=== PATIENT | female | born 1950 | race Caucasian/White ===

== ENCOUNTER 2017-10-13 15:28 | Emergency (ER) | payer OTHER ==
--- OUTSIDE RECORDS SUMMARY | 2017-10-13 15:30 | XMS REPORT | Clinical Summary ---
:1950 Author Organization [facility] Address [address] [place] [address] Care Team Providers Name Role Phone Marianne Sotelo Primary Care Provider Allergies No Known Allergies Current Medications Prescription Sig. Disp. Refills Start Date End Date Status atorvastatin (LIPITOR) 40 MG Take 40 mg by Active tablet mouth daily. FLUoxetine (PROzac) 40 MG Take 40 mg by Active capsule mouth daily. hydroCHLOROthiazide Take 25 mg by Active (HYDRODIURIL) 25 MG tablet mouth daily. losartan (COZAAR) 100 MG Take 100 mg by Active tablet mouth daily. amLODIPine (NORVASC) 10 mg Take 10 mg by Active tablet mouth daily. hydrALAZINE (APRESOLINE) 50 Take 50 mg by Active MG tablet mouth 3 (three) times a day. Active Problems Problem Noted Date Bronchitis 09/06/2017 Encounters Date Type Specialty Care Team Description 09/06/2017 [facility] Gastroenterology Antoine Abbott Bronchitis Encounter MD Chidi 09/06/2017 Anesthesia Event Gastroenterology Selena Mar MD 09/06/2017 Procedure Pass Gastroenterology 09/06/2017 Surgery Gastroenterology Antoine Abbott BRONCHOSCOPY MD Cihdi 08/30/2017 Procedure Pass Gastroenterology 04/10/2017 [facility] Radiology Antoine Abbott Pulmonary nodules Encounter MD Chidi 02/16/2017 Transcribe Orders Access Antoine Abbott Pulmonary nodules MD Chidi (Primary Dx) 11/03/2016 [facility] General Internal Antione Landa, - Encounter Medicine 11/05/2016 Antoine Abbott MD 11/03/2016 Orders Only General Surgery Kaity Krueger NP 10/31/2016 Orders Only General Surgery Antione Landa MD after 10/12/2016 Family History Medical History Relation Name Comments Alcohol abuse Brother Mental illness Brother Heart disease Father Hypertension Father Hypertension Mother Alcohol abuse Sister Mental illness Sister Relation Name Status Comments Brother Alive Father Mother Sister Alive Social History Tobacco Use Types Packs/Day Years Used Date Never Smoker Smokeless Tobacco: Never Used Alcohol Use Drinks/Week oz/Week Comments No Sex Assigned at Date Recorded Not on file Last Filed Vital Signs Vital Sign Reading Time Taken Blood Pressure 147/87 09/06/2017 2:30 PM [employer] Pulse 75 09/06/2017 2:30 PM [employer] Temperature 36.4 C (97.5 F) 09/06/2017 1:44 PM [employer] Respiratory Rate 17 09/06/2017 2:30 PM [employer] Oxygen Saturation 94% 09/06/2017 2:30 PM [employer] Inhaled Oxygen Concentration - - Weight - - Height 157.5 cm (5' 2") 09/06/2017 11:36 AM [employer] Body Mass Index - - Plan of Treatment Health Maintenance Due Date Last Done Comments COLONOSCOPY 2000 MAMMOGRAM 2000 ZOSTER VACCINE 2010 PNEUMOCOCCAL POLYSACCHARIDE VACCINE AGE 65 AND OVER 2015 PNEUMOCOCCAL-13 2015 INFLUENZA VACCINE 02/14/2017 Procedures Procedure Name Priority Date/Time Associated Diagnosis Comments BRONCHOSCOPY 09/06/2017 1:30 PM [employer] Bronchitis after 10/12/2016 Results Cytology (non-gynecological) request (09/06/2017 2:26 PM) Component Value Ref Range Cytology (non-gynecological) report See link below for PDF Lab Report Result status This is Final Report to [id number] Specimen Performing Laboratory [facility] DEPARTMENT OF PATHOLOGY AND GENOMIC MEDICINE [address] [place] [address] Respiratory culture (09/06/2017 2:09 PM) Component Value Ref Range Respiratory culture isolate Normal oral amado isolated. Comment: Specimen Information Specimen Source: Bronchial alveolar lavage Specimen Site: Lung, left upper lobe Specimen Performing Laboratory Bronchial alveolar lavage - Lung, left [facility] DEPARTMENT OF PATHOLOGY AND GENOMIC upper lobe MEDICINE [address] [place] [address] Fungus smear (09/06/2017 2:09 PM)Only the most recent of3 resultswithin the time period is included. Component Value Ref Range Fungus smear No fungi observed. Comment: Specimen Information Specimen Source: Bronchial alveolar lavage Specimen Site: Lung, left upper lobe Specimen Performing Laboratory Bronchial alveolar lavage - Lung, left [facility] DEPARTMENT OF PATHOLOGY AND [facility] MEDICINE [address] [place] [address] Respiratory pathogen panel (09/06/2017 2:09 PM) Component Value Ref Range Respiratory pathogen panel Negative for all pathogens tested: Negative for Adenovirus Negative for Coronavirus HKU1 Negative for Coronavirus NL63 Negative for Coronavirus 229E Negative for Coronavirus OC43 Negative for Human Metapneumovirus Negative for Rhinovirus/Enterovirus Negative for Influenza A Negative for Influenza A/H1 Negative for Influenza A/H3 Negative for Influenza A/H1-2009 Negative for Influenza B Negative for Parainfluenza Virus 1 Negative for Parainfluenza Virus 2 Negative for Parainfluenza Virus 3 Negative for Parainfluenza Virus 4 Negative for Respiratory Syncytial Virus Negative for Bordetella pertussis Negative for Chlamydophila pneumoniae Negative for Mycoplasma pneumoniae This real-time PCR assay detects the presence of nucleic acids (RNA or DNA) for the respiratory pathogens listed. A result of "Not-detected" does not exclude the possibility of the presence of one or more pathogens at concentrations less than the detectable limits of the assay. Comment: Specimen Information Specimen Source: Bronchial alveolar lavage Specimen Site: Lung, left upper lobe Specimen Performing Laboratory Bronchial alveolar lavage - Lung, left [facility] DEPARTMENT OF PATHOLOGY AND [address] [address] Legionella pneumophila DFA (09/06/2017 2:09 PM) Component Value Ref Range Legionella pneumophila DFA source BAL Legionella pneumophila DFA result Negative Negative Comment: Nucleic acid amplification tests provide greater sensitivity than DFA and should be ordered if clinically indicated. The preferred test is Legionella Species by Qualitative PCR (Breeze test code [id number]). Performed by [facility], [address] [place] [id number] [email or web address], Shahid Robbins MD - Lab. Director Specimen Performing Laboratory Bronchial alveolar lavage - Lung, left [facility] upper lobe [address] [place] [address] Cytomegalovirus by PCR (09/06/2017 2:09 PM) Component Value Ref Range Cytomegalovirus by PCR Not-Detected Not-Detected IU/mL Cytomegalovirus by PCR See link below for PDF Lab ReportComment: Specimen Performing Laboratory Bronchial alveolar lavage - Lung, left [facility] DEPARTMENT OF PATHOLOGY AND [facility] MEDICINE [address] [place] [address] Varicella zoster by PCR (09/06/2017 2:09 PM) Component Value Ref Range VZV result Not-Detected Not-Detected copies/mL Varicella zoster, PCR See link below for PDF Lab ReportComment: Specimen Performing Laboratory Bronchial alveolar lavage - Lung, left [facility] DEPARTMENT OF PATHOLOGY AND [address] [address] Herpes simplex virus by PCR (09/06/2017 2:09 PM) Component Value Ref Range Herpes virus, PCR Not-Detected Not-Detected Herpes virus, PCR See link below for PDF Lab ReportComment: Specimen Performing Laboratory Bronchial alveolar lavage - Lung, left [facility] DEPARTMENT OF PATHOLOGY AND [address] [address] Nocardia culture (09/06/2017 2:09 PM) Component Value Ref Range Nocardia culture isolate No Nocardia isolated after 7 days. Comment: Specimen Information Specimen Source: Bronchial alveolar lavage Specimen Site: Lung, left upper lobe Specimen Performing Laboratory Bronchial alveolar lavage - Lung, [facility] DEPARTMENT OF PATHOLOGY AND [address] [address] Legionella culture (09/06/2017 2:09 PM) Component Value Ref Range Legionella culture isolate No Legionella isolated. Comment: Specimen Information Specimen Source: Bronchial alveolar lavage Specimen Site: Lung, left upper lobe Specimen Performing Laboratory Bronchial alveolar lavage - Lung, [facility] DEPARTMENT OF PATHOLOGY AND [address] [address] Gram stain (09/06/2017 2:09 PM)Only the most recent of2 resultswithin the time period is included. Component Value Ref Range Gram stain isolate Rare WBC's No organisms seen Comment: Specimen Information Specimen Source: Bronchial alveolar lavage Specimen Site: Lung, left upper lobe Specimen Performing Laboratory Bronchial alveolar lavage - Lung, [facility] DEPARTMENT OF PATHOLOGY AND [facility] MEDICINE [address] [place] [address] AFB stain (09/06/2017 2:09 PM)Only the most recent of2 resultswithin the time period is included. Component Value Ref Range AFB stain No acid fast bacilli (AFB) seen. Comment: Specimen Information Specimen Source: Bronchial alveolar lavage Specimen Site: Lung, left upper lobe Specimen Performing Laboratory Bronchial alveolar lavage - Lung, [facility] DEPARTMENT OF PATHOLOGY AND GENOMIC [facility] MEDICINE [address] [place] [address] Fungus culture (09/06/2017 1:09 PM)Only the most recent of3 resultswithin the time period is included. Component Value Ref Range Fungus culture isolate No growth after 4 weeks of incubation. Comment: Specimen Information Specimen Source: Bronchial alveolar lavage Specimen Site: Lung, left upper lobe Specimen Performing Laboratory Bronchial alveolar lavage - Lung, left [facility] DEPARTMENT OF PATHOLOGY AND [facility] MEDICINE [address] [place] [address] ECG Pre/Post Op (09/06/2017 11:15 AM)Only the most recent of2 resultswithin the time period is included. Component Value Ref Range Ventricular rate 62 Atrial rate 62 MD interval 116 QRSD interval 82 QT interval 430 QTC interval 436 P axis 1 12 QRS axis 1 5 T wave axis -20 EKG impression Normal sinus rhythm-Moderate voltage criteria for LVH, may be normal variant-Inferior infarct , age undetermined-Abnormal ECG-- Specimen Performing Laboratory [facility] [address] [address] [place] [address] [address] Chest Wo Contrast (04/10/2017 9:24 AM) Specimen Performing Laboratory [facility] [address] [place] [address] Narrative EXAMINATION:CT CHEST WO CONTRAST CLINICAL HISTORY:R91.8 Other nonspecific abnormal finding of lung field, r91.8 TECHNIQUE: Noncontrast images of the chest were obtained. Sagittal and coronal computerized reformatted images were also obtained. CT imaging was performed with iterative reconstruction technique and/or automated exposure control to reduce radiation dose. COMPARISON:09/22/2016 IMPRESSION: 1.6 cm pulmonary nodule in the right middle lobe and 5 mm nodule in the right lower lobe along the fissure as well as few smaller nodular opacities in the posterior right lower lobe are unchanged. Calcified granuloma in the right lower lobe is also stable. Multifocal areas of elongated/tubular opacities. Some of these are unchanged compared to the prior study but other areas appear slightly increased: for example posterior right lower lobe focus (series 3 image 62) and left upper lobe ( series 3 image 22). Several associated small centrilobular and tree-in-bud appearing nodular opacities in the upper lobes bilaterally are unchanged. No new opacities. 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 Suggestive of ABPA. 2.Normal thyroid. No pathologically enlarged axillary, mediastinal, or hilar lymph nodes. 3.Normal heart size. Trace pericardial fluid. Atherosclerosis of the thoracic aorta. 4.Cholecystectomy. 5.Small degenerative osteophytes in the thoracic spine. [facility]-[id number] Procedure Note Hm Interface, Radiology Results Incoming - 04/10/2017 9:48 AM CDT EXAMINATION: CT CHEST WO CONTRAST CLINICAL HISTORY: R91.8 Other nonspecific abnormal finding of lung field, r91.8 TECHNIQUE: Noncontrast images of the chest were obtained. Sagittal and coronal computerized reformatted images were also obtained. CT imaging was performed with iterative reconstruction technique and/or automated exposure control to reduce radiation dose. COMPARISON: 09/22/2016 IMPRESSION: 1. 6 cm pulmonary nodule in the right middle lobe and 5 mm nodule in the right lower lobe along the fissure as well as few smaller nodular opacities in the posterior right lower lobe are unchanged. Calcified granuloma in the right lower lobe is also stable. Multifocal areas of elongated/tubular opacities. Some of these are unchanged compared to the prior study but other areas appear slightly increased : for example posterior right lower lobe focus (series 3 image 62) and left upper lobe (series 3 image 22). Several associated small centrilobular and tree-in-bud appearing nodular opacities in the upper lobes bilaterally are unchanged. No new opacities. Overall findings compatible with minimal progression in chronic/ recurrent small airway infection/inflammation with mucous plugging. Suggestive of ABPA. 2. Normal thyroid. No pathologically enlarged axillary, mediastinal, or hilar lymph nodes. 3. Normal heart size. Trace pericardial fluid. Atherosclerosis of the thoracic aorta. 4. Cholecystectomy. 5. Small degenerative osteophytes in the thoracic spine. [facility]-[id number] Aspergillus Ab by CF, serum (11/05/2016 6:15 AM) Component Value Ref Range Aspergillus Ab CF <1:8 <1:8 Comment: INTERPRETIVE INFORMATION: Aspergillus Antibody by Complement Fixation (CF) Cross-reactions with dimorphic fungi are not unusual within the genus Aspergillus. A negative test does not exclude infection, especially in immuno- compromised patients. Best use of test is with paired sera taken three weeks apart to detect a rise in titer against a single antigen. Performed by [facility], [address] [place] [address] www[email or web address], Shahid Robbins MD - Lab. Director Specimen Performing Laboratory [facility] DEPARTMENT OF PATHOLOGY AND GENOMIC MEDICINE [address] [place] [address] Estimated GFR (11/05/2016 6:15 AM)Only the most recent of4 resultswithin the time period is included. Component Value Ref Range GFR Non Af Amer 38 (A) mL/min/1.73 m2 GFR Af Amer 46 (A) mL/min/1.73 m2 Comment: Chronic kidney disease: <60 mL/min/1.73m2 Kidney failure: <15 mL/min/1.73m2 The estimated GFR is calculated from the IDMS-traceable Modification of Diet in Renal Disease Equation. The accuracy of the calculation is poor when the creatinine is normal. Calculated values >90 mL/min/1.73m2 are not reported. This equation has not been validated in children (<18 years), women, the elderly (>70 years), or ethnic groups other than Caucasians and Americans. Specimen Performing Laboratory [facility] DEPARTMENT OF PATHOLOGY AND GENOMIC MEDICINE [address] [place] [address] CBC with platelet and differential (11/05/2016 6:15 AM)Only the most recent of4 resultswithin the time period is included. Component Value Ref Range WBC 7.4 4.5 - 11.0 k/uL RBC 3.07 (L) 4.20 - 5.50 m/uL HGB 8.4 (L) 12.0 - 16.0 g/dL HCT 27.0 (L) 37.0 - 47.0 % MCV 87.9 82.0 - 100.0 fL MCH 27.4 27.0 - 34.0 pg MCHC 31.1 31.0 - 37.0 g/dL RDW - SD 46.2 37.0 - 55.0 fL MPV 11.2 (H) 6.9 - 11.0 fL Platelet count 140 (L) 150 - 400 K/uL Nucleated RBC 0.00 /100 WBC Neutrophils 70.7 (H) 39.0 - 69.0 % Lymphocytes 20.2 (L) 25.0 - 45.0 % Monocytes 8.3 0.0 - 10.0 % Eosinophils 0.4 0.0 - 5.0 % Basophils 0.3 0.0 - 1.0 % Immature granulocytes 0.1 0.0 - 1.0 % Specimen Performing Laboratory [facility] DEPARTMENT OF PATHOLOGY AND GENOMIC MEDICINE [address] [place] [address] Basic metabolic panel (11/05/2016 6:15 AM)Only the most recent of4 resultswithin the time period is included. Component Value Ref Range Sodium 141 135 - 148 mEq/L Potassium 4.3 3.5 - 5.0 mEq/L Chloride 104 98 - 112 mEq/L CO2 28 24 - 31 mEq/L Anion gap 9 7 - 15 mEq/L Comment: Starting from October , anion gap calculation no longer incorporates potassium. Please note the change. BUN 21 8 - 23 mg/dL Creatinine 1.4 (H) 0.5 - 0.9 mg/dL Glucose 90 65 - 99 mg/dL Calcium 8.0 (L) 8.8 - 10.2 mg/dL Specimen Performing Laboratory [facility] DEPARTMENT OF PATHOLOGY AND GENOMIC MEDICINE [address] [place] [address] XR Chest 1 Vw Portable (11/05/2016 6:02 AM)Only the most recent of3 resultswithin the time period is included. Specimen Performing Laboratory [facility] [address] [place] [address] Narrative CHEST PORTABLE 1 VIEW CLINICAL INDICATION:Chest Tube Removal COMPARISON:11/04/2016 IMPRESSION: A left subclavian catheter remains in place. A left-sided chest tube present on prior exam has been removed. There is a trace left apical pneumothorax at the medial apex less than 5% and unchanged from yesterday, pleural line projecting over the medial left second posterior rib. Subcutaneous gas is noted over the inferior left chest wall. Minimal left basilar atelectasis is present. Heart and mediastinal borders are stable without shift. Stable less than 5% left pneumothorax. Thank you for allowing us to participate in the care of your patient. [facility]-[id number] Procedure Note Interface, Radiology Conversion - 11/05/2016 6:09 AM CDT CHEST PORTABLE 1 VIEW CLINICAL INDICATION: Chest Tube Removal COMPARISON: 11/04/2016 IMPRESSION: A left subclavian catheter remains in place. A left-sided chest tube present on prior exam has been removed. There is a trace left apical pneumothorax at the medial apex less than 5% and unchanged from yesterday, pleural line projecting over the medial left second posterior rib. Subcutaneous gas is noted over the inferior left chest wall. Minimal left basilar atelectasis is present. Heart and mediastinal borders are stable without shift. Stable less than 5% left pneumothorax. Thank you for allowing us to participate in the care of your patient. [facility]-[id number] B natriuretic peptide (11/04/2016 3:40 AM) Component Value Ref Range BNP 411 (H) 0 - 100 pg/mL Specimen Performing Laboratory [facility] DEPARTMENT OF PATHOLOGY AND [facility] MEDICINE [address] [place] [address] Magnesium level (11/04/2016 3:40 AM)Only the most recent of3 resultswithin the time period is included. Component Value Ref Range Magnesium 1.8 1.6 - 2.4 mg/dL Specimen Performing Laboratory [facility] PATHOLOGY AND [place] [id number] Ionized calcium (11/04/2016 3:40 AM)Only the most recent of2 resultswithin the time period is included. Component Value Ref Range pH 7.37 Ionized calcium 1.14 1.11 - 1.32 mmol/L Specimen Performing Laboratory [facility] PATHOLOGY AND [place] [id number] Arterial blood gas (11/03/2016 2:45 PM)Only the most recent of2 resultswithin the time period is included. Component Value Ref Range pH, arterial 7.31 (L) 7.35 - 7.45 pCO2, arterial 45 35 - 45 mmHg pO2, arterial 172 (H) 80 - 90 mmHg Bicarbonate, arterial 21.6 21.0 - 28.0 mmol/L Base excess, arterial -4 (L) -2 - 2 mEq/L O2 saturation, arterial 99 95 - 100 % Specimen Performing Laboratory [facility] [place] [address] Partial thromboplastin time, activated (11/03/2016 12:08 PM)Only the most recent of2 resultswithin the time period is included. Component Value Ref Range PTT 25.9 23.0 - 36.0 sec Comment: PTT therapeutic range for unfractionated heparin is 61.0-112.0 seconds which corresponds to Anti-Xa 0.3-0.7 U/ml. Specimen Performing Laboratory [facility] DEPARTMENT OF PATHOLOGY AND [facility] MEDICINE [address] [place] [address] Prothrombin time with INR (11/03/2016 12:08 PM)Only the most recent of2 resultswithin the time period is included. Component Value Ref Range Prothrombin time 14.6 12.0 - 15.0 sec INR 1.1 Comment: The International Normalized Ratio (INR) is a therapeutic monitoring tool for patients who are stable on oral anticoagulant therapy. An INR of 2.0-3.0 is suggested for deep vein thrombosis/pulmonary embolism. Specimen Performing Laboratory [facility] DEPARTMENT OF PATHOLOGY AND GENOMIC MEDICINE [address] [place] [address] Phosphorus level (11/03/2016 12:08 PM) Component Value Ref Range Phosphorus 4.0 2.4 - 4.5 mg/dL Specimen Performing Laboratory [facility] PATHOLOGY AND [facility] MEDICINE [address] [place] [address] Surgical pathology request (11/03/2016 11:17 AM) Specimen Performing Laboratory Other [facility] DEPARTMENT OF PATHOLOGY AND GENOMIC MEDICINE [address] [place] [address] AFB culture (11/03/2016 11:00 AM) Component Value Ref Range AFB culture isolate No growth after 6 weeks of incubation. Specimen Performing Laboratory Biopsy [facility] DEPARTMENT OF PATHOLOGY AND GENOMIC MEDICINE [address] [place] [address] Narrative Specimen Site is : Left Upper Lobe Lung Specimen Source is : Biopsy Aerobic culture (11/03/2016 11:00 AM) Component Value Ref Range Aerobic culture isolate No growth after 3 days. Specimen Performing Laboratory Biopsy [facility] DEPARTMENT OF PATHOLOGY AND GENOMIC MEDICINE [address] [place] [address] Narrative Specimen Site is : Left Upper Lobe Lung Specimen Source is : Biopsy Anaerobic culture (11/03/2016 11:00 AM) Component Value Ref Range Anaerobic culture isolate No anaerobic organisms isolated. Specimen Performing Laboratory Biopsy [facility] DEPARTMENT OF PATHOLOGY AND GENOMIC MEDICINE [address] [place] [address] Narrative Specimen Site is : Left Upper Lobe Lung Specimen Source is : Biopsy Sodium level, syringe (11/03/2016 9:46 AM) Component Value Ref Range Sodium, syringe 137 125 - 148 mEq/L Specimen Performing Laboratory [facility] DEPARTMENT OF PATHOLOGY AND GENOMIC MEDICINE [address] [place], [place] [address] Potassium, syringe (11/03/2016 9:46 AM) Component Value Ref Range Potassium, syringe 3.3 (L) 3.5 - 5.0 mEq/L Specimen Performing Laboratory [facility] DEPARTMENT OF PATHOLOGY AND GENOMIC MEDICINE [address] [place], [place] [address] Ionized calcium, arterial (11/03/2016 9:46 AM) Component Value Ref Range Ionized calcium, arterial 1.05 (L) 1.11 - 1.32 mmol/L Specimen Performing Laboratory [facility] DEPARTMENT OF PATHOLOGY AND GENOMIC MEDICINE [address] [place], [place] [address] Hemoglobin, syringe (11/03/2016 9:46 AM) Component Value Ref Range Hemoglobin, syringe 9.9 (L) 12.0 - 16.0 g/dL Specimen Performing Laboratory [facility] DEPARTMENT OF PATHOLOGY AND GENOMIC MEDICINE [address] [place], [place] [address] Glucose level, syringe (11/03/2016 9:46 AM) Component Value Ref Range Glucose, syringe 101 (H) 65 - 99 mg/dL Specimen Performing Laboratory [facility] DEPARTMENT OF PATHOLOGY AND GENOMIC MEDICINE [address] [place], [place] [address] Arterial blood gas, corrected (11/03/2016 9:46 AM) Component Value Ref Range pH, arterial 7.44 7.35 - 7.45 pCO2, arterial 38 35 - 45 mmHg pO2, arterial 405 (H) 80 - 90 mmHg Temperature, Celsius 36.2 Degrees C O2 saturation, arterial 100 95 - 100 % pH, arterial corrected 7.46 pCO2, arterial corrected 36 mmHg pO2, arterial corrected 401 mmHg Base excess, arterial 2 -2 - 2 mEq/L Specimen Performing Laboratory [facility] DEPARTMENT OF PATHOLOGY AND GENOMIC MEDICINE [address] [place], [place] [address] Urine culture screen (11/03/2016 9:40 AM) Component Value Ref Range Urine culture screen isolate Bacteriuria screen negative. Specimen Performing Laboratory Urine [facility] DEPARTMENT OF PATHOLOGY AND GENOMIC MEDICINE [address] [place] [address] Narrative Specimen Site is : Catheterized Specimen Source is : Urine Urine culture screen (11/03/2016 9:40 AM) Component Value Ref Range Color, UA Yellow Appearance, UA Clear Specific gravity, UA 1.015 1.001 - 1.030 pH, UA 5.0 5.0 - 9.0 Protein, UA Negative Negative Glucose, UA Negative Negative Ketones, UA Negative Negative Bilirubin, UA Negative Negative Blood, UA Negative Negative Nitrite, UA Negative Negative Urobilinogen, UA <2.0 <2.0 E.U./dL Leukocyte esterase, UA Negative Negative Epithelial cells, UA 1 /HPF WBC, UA <1 0 - 4 /HPF RBC, UA 1 0 - 2 /HPF Bacteria, UA None seen None seen Yeast, UA None seen Yeast with pseudohyphae, UA None seen Hyaline casts, UA 2-5 /LPF Specimen Performing Laboratory [facility] DEPARTMENT OF PATHOLOGY AND GENOMIC MEDICINE [address] [place] [id number] POC glucose (11/03/2016 6:27 AM) Component Value Ref Range POC glucose 108 (H) 65 - 99 mg/dL Comment: Meter ID: [id number] Oven Laborer: Marianne Geller Specimen Performing Laboratory [facility] DEPARTMENT OF PATHOLOGY AND [address] [address] Prepare RBC (11/03/2016 6:27 AM) Component Value Ref Range Product name Red Blood Cells -1, Leukored Unit number [id number] Product code [id number] Dispense status Returned to not transfused Blood expiration date 20161123 Blood type code 6200 Blood type A POSITIVE Product name Apheresis -1 LR #1 Unit number [id number] Product code [id number] Dispense status Returned to not transfused Blood expiration date 20161123 Blood type code 6200 Blood type A POSITIVE Specimen Performing Laboratory [facility] DEPARTMENT OF PATHOLOGY AND [address] [address] Type and screen (11/03/2016 6:27 AM) Component Value Ref Range ABO grouping A Rh type POS Antibody screen (gel) NEG Specimen Performing Laboratory [facility] DEPARTMENT OF PATHOLOGY AND GENOMIC MEDICINE [address] [place] [address] XR Chest 2 Vw (10/31/2016 2:43 PM) Specimen Performing Laboratory [address] [address] Narrative EXAMINATION:CHEST 2 VIEW PA AP LATERAL CLINICAL HISTORY:PRE OP COMPARISON:None IMPRESSION: PA and lateral radiographs of the chest are reviewed. The heart size is normal. No consolidation is present. There is no pleural effusion or pneumothorax. There is no acute osseous abnormality. There are degenerative changes within the thoracic spine. There are surgical clips from cholecystectomy. [id number] Procedure Note Hm Interface, Radiology Conversion - 10/31/2016 2:55 PM CDT EXAMINATION: CHEST 2 VIEW PA AP LATERAL CLINICAL HISTORY: PRE OP COMPARISON: None IMPRESSION: PA and lateral radiographs of the chest are reviewed. The heart size is normal. No consolidation is present. There is no pleural effusion or pneumothorax. There is no acute osseous abnormality. There are degenerative changes within the thoracic spine. There are surgical clips from cholecystectomy. [id number] ECG 12 lead (10/31/2016 2:13 PM) Component Value Ref Range Ventricular rate 53 Atrial rate 53 MD interval 156 QRSD interval 80 QT interval 466 QTC interval 437 P axis 1 44 QRS axis 1 60 T wave axis 40 EKG impression Sinus bradycardia-Otherwise normal ECG-In automated comparison with ECG of 15-MAR-2016 12:31,-No significant change was found- Specimen Performing Laboratory [facility] [address] [place] [address] after 10/12/2016 Insurance Payer Benefit Plan / Group Subscriber ID Type Phone Address MEDICARE MEDICARE PART A AND B xxxxxxxxxx Medicare [place], [place] AETNA MEDICARE AETNA MEDICARE HMO/PPO [facility] xxxxxxxx HMO AETNA AETNA [facility] INDEMNITY xxxxxxxxx Indemnity
[2017-10-13] MEDS ORDERED: ALBUTEROL 2.5 MG/3 ML NEB SOL ONE (16:42)
[2017-10-13] MEDS ORDERED: IPRATROPIUM BROM 0.5MG/2.5ML ONE (16:42)
--- NOTE | 2017-10-13 17:16 | RAD REPORT ---
EXAM DESCRIPTION: RAD - Chest Pa And Lat (2 Views) - 10/13/2017 5:09 pm CLINICAL HISTORY: Nonproductive cough COMPARISON: 08/10/2017, 11/14/2016 FINDINGS: The lungs appear mildly emphysematous but grossly clear of acute infiltrate. The heart is upper limit of normal in size. No displaced fractures. Cholecystectomy clips. IMPRESSION: No acute process is identified.
[2017-10-13 18:04] LABS: Urine Blood NEGATIVE (NEG); Urine Glucose NEGATIVE (NEG); Urine Protein 2+ (NEG); Urine Specific Gravity 1.025 (1.005-1.030)
--- NOTE | 2017-10-13 18:32 | ER ---
Nurse's Notes [facility] Name: Veronica Hannah Age: 67 yrs Sex: Female : 1950 Arrival Date: 10/13/2017 Time: 15:34 Bed 14 Private MD: Diagnosis: Cough Presentation: 10/13 15:41 Presenting complaint: Patient states: Nonproductive cough x 3 days. Denies fever/pain. hb Transition of care: patient was not received from another setting of care. Onset of symptoms is unknown. Care prior to arrival: None. 15:41 Method Of Arrival: Ambulatory hb 15:41 Acuity: BALJIT 4 hb Historical: - Allergies: 15:43 No Known Drug Allergies; hb - Home Meds: 15:43 amlodipine oral [Active]; levothyroxine oral [Active]; Prozac Oral [Active]; hb - PMHx: 15:43 Asthma; breast cancer; Cerebral Palsy; Hypertension; hb - PSHx: 15:43 Hysterectomy; Knee surgery; bilateral mastectomy; hb - Immunization history:: Adult Immunizations up to date. - Social history:: Smoking status: Patient/guardian denies using tobacco. Screenin:08 Abuse screen: Denies threats or abuse. Nutritional screening: No deficits noted. ae1 Tuberculosis screening: No symptoms or risk factors identified. Fall Risk None identified. Assessment: 16:30 General: Appears uncomfortable, Behavior is calm, cooperative. Pain: Denies pain. ae1 Neuro: Level of Consciousness is awake, alert, obeys commands, Oriented to person, place, time, situation. Cardiovascular: Heart tones S1 S2 muffled Patient's skin is warm and dry. Respiratory: Airway is patent Respiratory effort is even, unlabored, Breath sounds with crackles bilaterally. Breath sounds with wheezes. GI: No signs and/or symptoms were reported involving the gastrointestinal system. : No signs and/or symptoms were reported regarding the genitourinary system. EENT: No signs and/or symptoms were reported regarding the EENT system. wear glasses.. Derm: Skin is pale. Musculoskeletal: No signs and/or symptoms reported regarding the musculoskeletal system. 16:30 Respiratory: Reports cough that is productive. ae1 18:16 Reassessment: Patient and/or family updated on plan of care and expected duration. Pain ae1 level reassessed. Patient denies pain at this time. Respiratory: patient still reports productive cough. Vital Signs: 15:42 BP 127 / 86; Pulse 83; Resp 20; Temp 98.4; Pulse Ox 100% on R/A; Pain 0/10; hb 17:31 BP 106 / 54; Pulse 75; Resp 19; Pulse Ox 95% on R/A; ae1 ED Course: 15:34 Patient arrived in ED. mr 15:42 Triage completed. hb 15:42 Arm band placed on right wrist. hb 15:45 Miles Liang, NICOLA is Primary Nurse. ae1 15:56 Luis Chrsitensen PA is PHCP. cp 15:56 Jules Monique MD is Attending Physician. cp 16:08 Bed in low position. Call light in reach. Side rails up X 1. Pulse ox on. NIBP on. ae1 16:28 Strep Sent. ae1 16:28 Influenza Screen (a \T\ B) Sent. ae1 16:33 Radiology exam delayed due to patient receiving breathing treatment at this time. mh1 17:08 Patient moved to radiology via wheelchair. kc2 17:08 X-ray completed. Patient tolerated procedure well. kc2 17:09 Patient moved back from radiology. kc2 17:09 XRAY Chest Pa And Lat (2 Views) In Process Unspecified. EDMS 17:50 Urine collected: clean catch specimen, susanna colored. mh5 18:49 No provider procedures requiring assistance completed. Patient did not have IV access ae1 during this emergency room visit. Administered Medications: 16:26 Drug: Albuterol 2.5 mg Route: Inhalation; ae1 17:56 Follow up: Response: Wheezing diminished ae1 16:26 Drug: AtroVENT Aerosol 0.5 mg Route: Inhalation; ae1 17:56 Follow up: Response: Wheezing diminished; Other; cough decreased ae1 Intake: Outcome: 18:31 Discharge ordered by MD. cp 18:49 Discharged to home ambulatory, with significant other. ae1 18:49 Condition: stable 18:49 Discharge instructions given to patient, significant other, Instructed on discharge instructions, follow up and referral plans. Demonstrated understanding of instructions, Prescriptions given X 3. 18:50 Patient left the ED. ae1 Signatures: Dispatcher [employer] [facility] Latoya Durbin Kunal Russellha mh1 Page, Luis, Maritza Oneill cp, RN RN hb Paige Shirley kc2 Miles Liang RN RN ae1 Latoya Younger 5
--- NOTE | 2017-10-13 18:32 | EDPHYS ---
Physician Documentation [facility] Name: Veronica Hannah Age: 67 yrs Sex: Female : 1950 Arrival Date: 10/13/2017 Time: 15:34 Bed 14 Private MD: ED Physician Jules Monique HPI: 10/13 16:30 This 67 yrs old Female presents to ER via Ambulatory with complaints of Cough.cp 16:30 The patient or guardian reports cough, that is intermittent, with no sputum. Onset: The cp symptoms/episode began/occurred 3 day(s) ago. Severity of symptoms: in the emergency department the symptoms are unchanged, despite home interventions. Associated signs and symptoms: Pertinent negatives: chest pain, diarrhea, ear ache, fever, vomiting. Historical: - Allergies: 15:43 No Known Drug Allergies; hb - Home Meds: 15:43 amlodipine oral [Active]; levothyroxine oral [Active]; Prozac Oral [Active]; hb - PMHx: 15:43 Asthma; breast cancer; Cerebral Palsy; Hypertension; hb - PSHx: 15:43 Hysterectomy; Knee surgery; bilateral mastectomy; hb - Immunization history:: Adult Immunizations up to date. - Social history:: Smoking status: Patient/guardian denies using tobacco. ROS: 16:45 Constitutional: Negative for body aches, chills, fever, poor PO intake. cp 16:45 Eyes: Negative for injury, pain, redness, and discharge. cp 16:45 ENT: Negative for drainage from ear(s), ear pain, sinus congestion, sinus pain, difficulty swallowing, difficulty handling secretions. 16:45 Neck: Negative for pain with movement, pain at rest, stiffness. 16:45 Cardiovascular: Negative for chest pain, edema, palpitations. 16:45 Respiratory: Positive for cough, with no reported sputum. 16:45 Abdomen/GI: Negative for abdominal pain, vomiting, diarrhea, constipation, anorexia, black/tarry stool, rectal bleeding. 16:45 Back: Negative for pain at rest, pain with movement, radiated pain. 16:45 Skin: Negative for cellulitis, rash. 16:45 Neuro: Negative for altered mental status, headache, weakness. 16:45 All other systems are negative. Exam: 16:50 Constitutional: The patient appears in no acute distress, alert, awake, non-toxic, well cp developed, well nourished. 16:50 Head/Face: Normocephalic, atraumatic. cp 16:50 Eyes: Periorbital structures: appear normal, Pupils: equal, round, and reactive to light and accomodation, Conjunctiva: normal, no exudate, no injection, Sclera: no appreciated abnormality, Lids and lashes: appear normal, bilaterally. 16:50 ENT: External ear(s): are unremarkable, Ear canal(s): are normal, clear, TM's: bulging, is not appreciated, bilaterally, dullness, bilaterally, erythema, is not appreciated, bilaterally, Nose: is normal, Mouth: Lips: moist, Oral mucosa: pink and intact, moist, Posterior pharynx: Airway: no evidence of obstruction, patent, Tonsils: are normal in appearance, Uvula: midline, swelling, is not appreciated, erythema, is not appreciated, exudate, is not appreciated, Voice: is normal. 16:50 Neck: ROM/movement: is normal, is supple, without pain, no range of motions limitations, no meningismus, no nuchal rigidity. 16:50 Chest/axilla: Inspection: normal, Palpation: is normal, no crepitus, no tenderness. 16:50 Cardiovascular: Rate: normal, Rhythm: regular, Pulses: Pulses are 2+ in right radial artery and left radial artery. Edema: is not appreciated, JVD: is not appreciated. 16:50 Respiratory: the patient does not display signs of respiratory distress, Respirations: normal, no use of accessory muscles, no retractions, no splinting, no tachypnea, labored breathing, is not present, Breath sounds: decreased breath sounds, that are mild, throughout, stridor, is not appreciated, wheezing: is not appreciated. 16:50 Abdomen/GI: Inspection: abdomen appears normal, Bowel sounds: active, all quadrants, Palpation: abdomen is soft and non-tender, in all quadrants. 16:50 Skin: cellulitis, is not appreciated, no rash present. Vital Signs: 15:42 BP 127 / 86; Pulse 83; Resp 20; Temp 98.4; Pulse Ox 100% on R/A; Pain 0/10; hb 17:31 BP 106 / 54; Pulse 75; Resp 19; Pulse Ox 95% on R/A; ae1 MDM: 15:56 Patient medically screened. 17:00 Differential Diagnosis: Bronchitis Influenza Upper Respiratory Infection Sinusitis cp Pharyngitis Otitis Media Pneumonia. 18:30 Data reviewed: vital signs, nurses notes, lab test result(s), radiologic studies, plain cp films. 18:30 Counseling: I had a detailed discussion with the patient and/or guardian regarding: the cp historical points, exam findings, and any diagnostic results supporting the discharge/admit diagnosis, lab results, radiology results, the need for outpatient follow up, a family practitioner, to return to the emergency department if symptoms worsen or persist or if there are any questions or concerns that arise at home. 10/13 16:20 Order name: Influenza Screen (a \T\ B); Complete Time: 17:30 10/13 17:30 Interpretation: Reviewed. 10/13 16:20 Order name: Strep; Complete Time: 17:30 10/13 17:30 Interpretation: Reviewed. 10/13 17:20 Order name: Throat Culture [facility] 10/13 17:52 Order name: Urine Microscopic Only 5 10/13 18:01 Order name: Urine Dipstick--Ancillary (enter results); Complete Time: 18:11 10/13 18:11 Interpretation: Normal except: UKET 1+; UPROT 2+; UESTR TRACE. 10/13 18:47 Order name: Urine Culture [facility] 10/13 16:20 Order name: XRAY Chest Pa And Lat (2 Views); Complete Time: 17:30 10/13 17:30 Interpretation: Report reviewed. 10/13 17:30 Order name: Urine Dipstick-Ancillary (obtain specimen); Complete Time: 17:51 cp Administered Medications: 16:26 Drug: Albuterol 2.5 mg Route: Inhalation; ae1 17:56 Follow up: Response: Wheezing diminished ae1 16:26 Drug: AtroVENT Aerosol 0.5 mg Route: Inhalation; ae1 17:56 Follow up: Response: Wheezing diminished; Other; cough decreased ae1 Disposition: 10/13/17 18:31 Discharged to Home. Impression: Cough. - Condition is Stable. - Discharge Instructions: Cough, Adult. - Prescriptions for Tessalon Perles 100 mg Oral Capsule - take 1 capsule by ORAL route every 8 hours As needed; 15 capsule. Albuterol Sulfate 2.5 mg /3 mL (0.083 %) Inhalation Solution for Nebulization - inhale 1 unit by NEBULIZATION route every 8 hours As needed; 1 box. Prednisone 20 mg Oral Tablet - take 2 tablet by ORAL route once daily for 5 days; 10 tablet. - Medication Reconciliation Form, Thank You Letter, Antibiotic Education, Prescription Opioid Use form. - Follow up: Private Physician; When: 2 - 3 days; Reason: Recheck today's complaints. - Problem is new. - Symptoms are unchanged. Addendum: 10/15/2017 07:01 Co-signature as Attending Physician, Jules Monique MD I agree with the assessment and k dr plan of care. Signatures: Dispatcher [employer] EDMA Jules Monique MD MD [facility] Luis Christensen PA PA cp Baxter, Heather, RN RN Miles Liang RN RN ae1
[2017-10-13 18:44] LABS: Urine Bacteria 20-50 /HPF (<20); Urine RBC <5 /HPF (NONE SEEN)
[2017-10-13 18:45] LABS: Urine Coarse Granular Casts 0-5 /LPF (NONE SEEN); Urine Culture Reflex Order REFLEXED; Urine Mucus LIGHT /HPF (NONE SEEN); Urine Other Components CELL CAST 0-5 (NONE SEEN)
== END 2017-10-13 18:50 | disposition home or self-care (01) ==
LOC: ER 15:28
DX: R05 Cough (principal); I10 Essential (primary) hypertension; Z85.3 Personal history of malignant neoplasm of breast; Z90.13 Acquired absence of bilateral breasts and nipples
CPT/HCPCS: 71046; 81003; 81015; 87070; 87081; 87086; 87088; 87804; 99284

== ENCOUNTER 2018-10-27 06:56 | Emergency (ER) | payer OTHER ==
--- OUTSIDE RECORDS SUMMARY | 2018-10-27 06:59 | XMS REPORT | Clinical Summary ---
:1950 Author Organization [facility] Address [address] [place] [address] Care Team Providers Name Role Phone Marianne Sotelo Primary Care Provider Allergies No Known Allergies Medications Medication Sig Dispensed Refills Start Date End Date Status atorvastatin (LIPITOR) 40 Take 40 mg by 0 Active MG tablet mouth daily. FLUoxetine (PROzac) 40 MG Take 40 mg by 0 Active capsule mouth daily. hydroCHLOROthiazide Take 25 mg by 0 Active (HYDRODIURIL) 25 MG tablet mouth daily. losartan (COZAAR) 100 MG Take 100 mg 0 Active tablet by mouth daily. amLODIPine (NORVASC) 10 mg Take 10 mg by 0 Active tablet mouth daily. hydrALAZINE (APRESOLINE) 50 Take 50 mg by 0 Active MG tablet mouth 3 (three) times a day. Active Problems Problem Noted Date Bronchitis 09/06/2017 Family History Medical History Relation Name Comments [...] Assigned at Date Recorded Not on file Job Start Date Occupation Industry Not on file Not on file Not on file Travel History Travel Start Travel End No recent travel history available. Last Filed Vital Signs Not on file Plan of Treatment Health Maintenance Due Date Last Done Comments BREAST CANCER SCREENING 2000 COLON CANCER SCREENING 2000 SHINGLES VACCINES (#1) 2000 65+ PNEUMOCOCCAL VACCINE (1 of 2 - PCV13) 2015 PNEUMOCOCCAL POLYSACCHARIDE VACCINE AGE 65 AND OVER 2015 INFLUENZA VACCINE 02/14/2019 Results Not on fileafter 10/26/2017 Insurance Payer Benefit Plan / Group Subscriber ID Type Phone Address MEDICARE MEDICARE PART A AND B xxxxxxxxxx Medicare [place], [place] AETNA AETNA [facility] x[facility] Indemnity Advance Directives Patient has advance care planning documents on file. For more information, please contact:Asim [address] [place] [address]
[2018-10-27] MEDS ORDERED: LIDOCAINE 1% W/EPI 1:100,000 MDV 50 ML VIAL ONE ×2 (07:31→07:57)
[2018-10-27] MEDS ORDERED: BUPIVACAINE 0.5% PF 10 ML VIAL ONE (07:57)
[2018-10-27 09:01] LABS: Absolute Lymphocytes (CBC) 1.1 K/uL (0.7-4.9); Absolute Monocytes 0.6 K/uL (0.1-1.3); Absolute Neutrophil 6.3 K/uL (1.8-8.0); Basophils % 0.4 % (0-1.3); Eosinophils % 0.6 % (0-4.4); Hematocrit 35.6 % (36.0-45.0); Lymphocytes % 13.6 % (15.3-44.8); MPV 9.8 fL (7.6-11.3); Monocytes % 7.7 % (3.3-12.3)
--- NOTE | 2018-10-27 09:02 | RAD REPORT ---
EXAM DESCRIPTION: CT - Head Brain Wo Cont - 10/27/2018 8:31 am CLINICAL HISTORY: Alteration of awareness/confusion COMPARISON: None TECHNIQUE: Computed axial tomography of the head was obtained. IV contrast was not requested. All CT scans are performed using dose optimization technique as appropriate and may include automated exposure control or mA/KV adjustment according to patient size. FINDINGS: An intracranial bleed is not seen . The ventricles are normal in caliber. No extra-axial fluid collection is noted. 6 centimeter posterior fossa cyst displace the cerebellar hemispheres. Mild dilatation of the ventric les is present. . Fluid within the sinuses/ mastoids is not seen. IMPRESSION: No acute intracranial abnormality is seen. If patient's symptoms persist MRI of the bra in would be recommended. 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 Mild dilatation of the ventricles is unchanged
[2018-10-27 09:23] LABS: ALT/SGPT 20 U/L (12-78); AST/SGOT 15 U/L (15-37); Albumin 3.8 g/dL (3.4-5.0); Alkaline Phosphatase 62 U/L (45-117); BUN Blood Urea Nitrogen 19 mg/dL (7-18); Bicarbonate 27 mmol/L (21-32); Bilirubin Total 0.4 mg/dL (0.2-1.0); Glucose Level 100 mg/dL (74-106); Protein, Total 7.4 g/dL (6.4-8.2); Sodium Level 142 mmol/L (136-145); Troponin (Emerg Dept Use Only) < 0.02 ng/mL (0.0-0.045)
--- NOTE | 2018-10-27 09:37 | EDPHYS ---
Physician Documentation [facility] Name: Veronica Hannah Age: 68 yrs Sex: Female : 1950 Arrival Date: 10/27/2018 Time: 06:57 Bed 17 Private MD: ED Physician Handy Torres HPI: 10/27 07:06 This 68 yrs old Female presents to ER via Unassigned with complaints of Fall ps1 Injury. 07:06 patient reportedly fell last night. Patient has fallen multiple times recently 2/2 low ps1 blood pressure. Patient reportedly on multiple blood pressure medications and recently lowered 2/2 falls. She reportedly hit her head and has a laceration to the volar aspect of the right forearm. No LOC. Not on anticoags. Pain rated as mild to moderate and non-radiating. . Historical: - Allergies: 07:09 No Known Allergies; ss - Home Meds: 07:09 amlodipine oral [Active]; levothyroxine oral [Active]; Prozac Oral [Active]; ss atorvastatin oral oral [Active]; Diovan Oral [Active]; - PMHx: 07:09 Asthma; breast cancer; Cerebral Palsy; Hypertension; Hypothyroidism; ss - PSHx: 07:09 Hysterectomy; Knee surgery; bilateral mastectomy; ss - Immunization history:: Adult Immunizations up to date. - Social history:: Smoking status: Patient/guardian denies using tobacco. - Ebola Screening: : Patient denies exposure to infectious person Patient denies travel to an Ebola-affected area in the 21 days before illness onset. ROS: 07:06 Constitutional: Negative for fever, chills, and weight loss, Eyes: Negative for injury, ps1 pain, redness, and discharge, Cardiovascular: Negative for chest pain, palpitations, and edema, Respiratory: Negative for shortness of breath, cough, wheezing, and pleuritic chest pain, Abdomen/GI: Negative for abdominal pain, nausea, vomiting, diarrhea, and constipation, Back: Negative for injury and pain, MS/Extremity: Negative for injury and deformity, Psych: Negative for depression, anxiety, suicide ideation, homicidal ideation, and hallucinations. 07:06 Skin: Positive for laceration(s), of the palmar aspect of right forearm. 07:06 Neuro: Positive for syncope. Exam: 07:06 Constitutional: This is a well developed, well nourished patient who is awake, alert, ps1 and in no acute distress. Eyes: Pupils equal round and reactive to light, extra-ocular motions intact. Lids and lashes normal. Conjunctiva and sclera are non-icteric and not injected. ENT: Nares patent. No nasal discharge, no septal abnormalities noted. Tympanic membranes are normal and external auditory canals are clear. Oropharynx with no redness, swelling, or masses, exudates, or evidence of obstruction, uvula midline. Mucous membranes moist. Cardiovascular: Regular rate and rhythm. No gallops, murmurs, or rubs. Normal PMI, no JVD. No pulse deficits. Respiratory: Lungs have equal breath sounds bilaterally, clear to auscultation and percussion. No rales, rhonchi or wheezes noted. No increased work of breathing, no retractions or nasal flaring. Abdomen/GI: Soft, non-tender, with normal bowel sounds. No distension or tympany. No guarding or rebound. No evidence of tenderness throughout. 07:06 Head/face: Noted is contusion, that is superficial, of the forehead. 07:06 Skin: injury, laceration(s), the wound is approximately 3 cm(s), with a depth of 1 cm(s), of the palmar aspect of right forearm. Vital Signs: 07:09 BP 134 / 65; Pulse 81; Resp 17; Pulse Ox 96% on R/A; Weight 57.15 kg; Height 4 ft. 11 ss in. (149.86 cm); Pain 0/10; 07:09 Temp 98.3(TE); ss 07:56 BP 111 / 55 Supine; Pulse 71; Resp 18; Pulse Ox 95% on R/A; mh5 07:58 BP 116 / 56 Sitting; Pulse 74; Resp 20; Pulse Ox 95% on R/A; mh5 08:00 BP 106 / 74 Standing; Pulse 79; Resp 18; Pulse Ox 94% on R/A; mh5 09:31 BP 114 / 53; Pulse 64; Resp 18; Pulse Ox 95% on R/A; em 07:09 Body Mass Index 25.45 (57.15 kg, 149.86 cm) ss Laceration: 07:11 Wound Repair of 6cm ( 2.4in ) subcutaneous laceration to palmar aspect of right ps1 forearm. Linear shaped.. Distal neuro/vascular/tendon intact. Anesthesia: Local anesthetic administered with 5 mls of 1% lidocaine w/ Epi. Wound prep: Moderate cleansing. Skin closed with 5 5-0 Prolene using simple sutures and sterile technique. Dressed with Bacitracin, 4x4's, Kerlix. Patient tolerated well. MDM: 07:41 Patient medically screened. ps1 10/27 07:15 Order name: CBC with Diff; Complete Time: 09:02 ps1 10/27 07:15 Order name: CMP; Complete Time: 09:35 ps1 10/27 07:15 Order name: CXR XRAY ps1 10/27 07:15 Order name: Troponin (emerg Dept Use Only); Complete Time: 09:35 ps1 10/27 09:40 Order name: Urine Microscopic Only mh5 10/27 09:44 Order name: Urine Dipstick--Ancillary (enter results) 10/27 07:15 Order name: Urine Dipstick-Ancillary (obtain specimen); Complete Time: 09:35 ps1 10/27 07:15 Order name: CT Head Brain wo Cont; Complete Time: 09:02 ps1 10/27 07:15 Order name: EKG - Nurse/Tech; Complete Time: 07:46 ps1 EC:42 Rate is 71 beats/min. Rhythm is regular. QRS [place] is Normal. [place] interval is normal. QRS ps1 interval is normal. QT interval is normal. No Q waves. T waves are Normal. No ST changes noted. Clinical impression: Normal ECG. Interpreted by me. Administered Medications: No medications were administered Disposition: 10/27/18 09:36 Discharged to Home. Impression: Fall, Scalp contusion, Right arm laceration. - Condition is Stable. - Discharge Instructions: Fall Prevention in the Home, Laceration Care, Adult. - Work release form, Medication Reconciliation Form, Thank You Letter, Antibiotic Education, Prescription Opioid Use form. - Follow up: Emergency Department; When: As needed; Reason: Worsening of condition. Follow up: Private Physician; When: 1 week; Reason: Recheck today's complaints, Staple/Suture removal. - Problem is new. - Symptoms have improved. Signatures: Dispatcher [employer] Tito Heller, MARKETING ASSISTANT RETAIL DIVISION MARKETING ASSISTANT RETAIL DIVISION Rosa Huddleston RN RN Handy Nix MD MD ps1 Corrections: (The following items were deleted from the chart) 07:39 07:11 Wound Repair of 3cm ( 1.2in ) subcutaneous laceration to palmar aspect of right ps1 forearm. Linear shaped.. Distal neuro/vascular/tendon intact. Anesthesia: Local anesthetic administered with 5 mls of 1% lidocaine w/ Epi. Wound prep: Moderate cleansing. Skin closed with 3 5-0 Prolene using simple sutures and sterile technique. Dressed with Bacitracin, 4x4's, Kerlix. Patient tolerated well. ps1 09:56 09:36 10/27/2018 09:36 Discharged to Home. Impression: Fall; Scalp contusion; Right arm em laceration. Condition is Stable. Forms are Medication Reconciliation Form, Thank You Letter, Antibiotic Education, Prescription Opioid Use. Follow up: Emergency Department; When: As needed; Reason: Worsening of condition. Follow up: Private Physician; When: 1 week; Reason: Recheck today's complaints, Staple/Suture removal. Problem is new. Symptoms have improved. ps1
--- NOTE | 2018-10-27 09:37 | ER ---
Nurse's Notes [facility] Name: Veronica Hannah Age: 68 yrs Sex: Female : 1950 Arrival Date: 10/27/2018 Time: 06:57 Bed 17 Private MD: Diagnosis: Fall;Scalp contusion;Right arm laceration Presentation: 10/27 07:11 Presenting complaint: Patient states: fell last night from standing position. ss Laceration noted to R forearm. Denies pain. Denies LOC. Family member reports that she has been falling a lot lately and believes it may be because her blood pressure has been low due to medications. Transition of care: patient was not received from another setting of care. Onset of symptoms was October 26, 2018. Risk Assessment: Do you want to hurt yourself or someone else? Patient reports no desire to harm self or others. Initial Sepsis Screen: Does the patient meet any 2 criteria? No. Patient's initial sepsis screen is negative. Does the patient have a suspected source of infection? No. Patient's initial sepsis screen is negative. Care prior to arrival: None. 07:11 Method Of Arrival: Ambulatory ss 07:11 Acuity: BALJIT 3 ss Historical: - Allergies: 07:09 No Known Allergies; ss - Home Meds: 07:09 amlodipine oral [Active]; levothyroxine oral [Active]; Prozac Oral [Active]; ss atorvastatin oral oral [Active]; Diovan Oral [Active]; - PMHx: 07:09 Asthma; breast cancer; Cerebral Palsy; Hypertension; Hypothyroidism; ss - PSHx: 07:09 Hysterectomy; Knee surgery; bilateral mastectomy; ss - Immunization history:: Adult Immunizations up to date. - Social history:: Smoking status: Patient/guardian denies using tobacco. - Ebola Screening: : Patient denies exposure to infectious person Patient denies travel to an Ebola-affected area in the 21 days before illness onset. Screenin:15 Abuse screen: Denies threats or abuse. Nutritional screening: No deficits noted. em Tuberculosis screening: No symptoms or risk factors identified. Fall Risk None identified. Assessment: 07:10 General: Appears in no apparent distress. comfortable, Behavior is calm, cooperative. em Pain: Denies pain. Neuro: Level of Consciousness is awake, alert, obeys commands, Oriented to person, place, time, situation, Denies weakness dizziness, numbness. Cardiovascular: Capillary refill < 3 seconds Patient's skin is warm and dry. Respiratory: Airway is patent Respiratory effort is even, unlabored, Respiratory pattern is regular, symmetrical. GI: Patient currently denies nausea, vomiting. Derm: Skin is intact, is healthy with good turgor, Skin is pink, warm \T\ dry. Injury Description: Laceration sustained to back of right arm is clean, superficial, 2.6 to 7.5 cm long, not bleeding, was sustained 12-24 hours ago. no active bleeding noted at this time. 07:15 General: The previous assessment is accurate, call light remains within reach. Spouse ss at bedside.. 07:30 Reassessment: Dr. Torres at bedside. em 08:00 Reassessment: Patient appears in no apparent distress at this time. Patient and/or em family updated on plan of care and expected duration. Pain level reassessed. Patient is alert, oriented x 3, equal unlabored respirations, skin warm/dry/pink. 09:52 Reassessment: Patient appears in no apparent distress at this time. Patient and/or em family updated on plan of care and expected duration. Pain level reassessed. Patient is alert, oriented x 3, equal unlabored respirations, skin warm/dry/pink. Vital Signs: 07:09 BP 134 / 65; Pulse 81; Resp 17; Pulse Ox 96% on R/A; Weight 57.15 kg; Height 4 ft. 11 ss in. (149.86 cm); Pain 0/10; 07:09 Temp 98.3(TE); ss 07:56 BP 111 / 55 Supine; Pulse 71; Resp 18; Pulse Ox 95% on R/A; mh5 07:58 BP 116 / 56 Sitting; Pulse 74; Resp 20; Pulse Ox 95% on R/A; mh5 08:00 BP 106 / 74 Standing; Pulse 79; Resp 18; Pulse Ox 94% on R/A; mh5 09:31 BP 114 / 53; Pulse 64; Resp 18; Pulse Ox 95% on R/A; em 07:09 Body Mass Index 25.45 (57.15 kg, 149.86 cm) ED Course: 06:57 Patient arrived in ED. do 07:00 Handy Torres MD is Attending Physician. ps1 07:05 Tito Collins LVN is Primary Nurse. em 07:09 Arm band placed on right wrist. ss 07:13 Triage completed. ss 07:31 Radiology exam delayed due to DR TORRES SUTURING PT. 2 07:35 Assist provider with laceration repair on back of right arm that was between 2.6 to 7.5 em cm using sutures. Set up tray. Performed by Handy Torres MD Dressed with 4X4s, Kerlix, Patient tolerated well. 07:46 EKG done, by ED staff, reviewed by Handy Torres MD. mh5 08:04 Patient has correct armband on for positive identification. Bed in low position. Call [facility] light in reach. Side rails up X2. Adult w/ patient. Pulse ox on. NIBP on. 08:31 CT Head Brain wo Cont In Process Unspecified. EDMS 08:31 CT completed. Patient tolerated procedure well. Patient moved back from CT. bq 08:58 CXR XRAY In Process Unspecified. EDMS 09:40 Urine collected: clean catch specimen, clear. mh5 09:46 Urine Microscopic Only Sent. mh5 09:46 Urine Dipstick--Ancillary (enter results) Sent. mh5 09:55 Patient did not have IV access during this emergency room visit. em Administered Medications: No medications were administered Outcome: 09:36 Discharge ordered by MD. ps1 09:55 Discharged to home ambulatory, with family. em 09:55 Condition: good 09:55 Discharge instructions given to patient, family, Instructed on discharge instructions, follow up and referral plans. Demonstrated understanding of instructions, follow-up care. 09:56 Patient left the ED. em Signatures: Dispatcher [employer] EDCO Shira Pedraza Tito Collins, [employer] em Rosa Bates RN RN Park Dooley Maria [facility] Kourtney Bethea [facility] Handy Torres MD MD ps1 Corrections: (The following items were deleted from the chart) 07:14 07:11 Presenting complaint: Patient states: fell last night. Laceration noted to R ss forearm. Denies pain. Denies LOC. Family member reports that she has been falling a lot lately and believes it may be because her blood pressure has been low due to medications. ss 07:15 07:11 Acuity: BALJIT [address] [facility] 09:52 09:44 Reassessment: Patient appears in no apparent distress at this time. Patient em and/or family updated on plan of care and expected duration. Pain level reassessed. Patient is alert, oriented x 3, equal unlabored respirations, skin warm/dry/pink. ss
[2018-10-27 10:44] LABS: Urine Bacteria 20-50 /HPF (<20); Urine Culture Reflex Order REFLEXED
[2018-10-27 10:46] LABS: Urine Blood NEGATIVE (NEG); Urine Glucose NEGATIVE (NEG); Urine Protein NEGATIVE (NEG)
--- NOTE | 2018-10-27 11:13 | RAD REPORT ---
EXAM DESCRIPTION: [facility] Single View10/27/2018 8:58 am CLINICAL HISTORY: Chest pain COMPARISON: 2015 and September 2017 FINDINGS: Bilateral pulmonary nodules are without obvious change. A lung consolidation is not seen. The heart is borderline enlarged
--- NOTE | 2018-10-29 05:58 | EKG ---
Test Date: 2018-10-27 Test Time: 07:42:45 Surgical Dental Assistant: JUDE MEASUREMENT RESULTS: Intervals: Rate: 71 NM: 150 QRSD: 84 QT: 424 QTc: 460 [place]: P: 50 NM: 150 QRS: 78 T: 55 INTERPRETIVE STATEMENTS: Normal sinus rhythm Normal ECG Compared to ECG 03/08/2016 06:57:53 No significant changes Electronically Signed On 10-29-18 05:58:01 CDT by [employer] Delacruz
== END 2018-10-27 09:56 | disposition home or self-care (01) ==
LOC: ER 06:56
PROC: 0JQG0ZZ Repair Right Lower Arm Subcutaneous Tissue and Fascia, Open Approach (ICD-10-PCS; principal; 2018-10-27)
DX: S51.811A Laceration without foreign body of right forearm, initial encounter (principal); S00.03XA Contusion of scalp, initial encounter; W19.XXXA Unspecified fall, initial encounter; Z91.81 History of falling; J45.909 Unspecified asthma, uncomplicated; C50.919 Malignant neoplasm of unspecified site of unspecified female breast; I10 Essential (primary) hypertension; E03.9 Hypothyroidism, unspecified
CPT/HCPCS: 36415; 70450; 71045; 80053; 81003; 81015; 84484; 85025; 87086; 87088; 93005; 99284

== ENCOUNTER 2018-11-03 16:08 | Emergency (ER) | payer OTHER ==
--- OUTSIDE RECORDS SUMMARY | 2018-11-03 16:10 | XMS REPORT | Clinical Summary ---
:1950 Author Organization [facility] Address [address] [place] [address] Care Team Providers Name Role Phone Marianne [...] INFLUENZA VACCINE 02/14/2019 Results Not on fileafter 11/02/2017 Insurance Payer Benefit Plan / Group Subscriber ID Type Phone Address MEDICARE MEDICARE PART A AND B xxxxxxxxxx Medicare [place], [place] AETNA AETNA [facility] xxxxxxxxx Indemnity Advance Directives Patient has advance care planning documents on file. For more information, please contact:As[address] [place] [address]
[2018-11-03 17:27] LABS: Potassium 4.5 mmol/L (3.5-5.1)
[2018-11-03 17:42] LABS: Absolute Lymphocytes (CBC) 1.4 K/uL (0.7-4.9); Absolute Monocytes 0.6 K/uL (0.1-1.3); Absolute Neutrophil 5.3 K/uL (1.8-8.0); Basophils % 2.1 % (0-1.3); Eosinophils % 1.4 % (0-4.4); Hematocrit 32.7 % (36.0-45.0); Lymphocytes % 18.4 % (15.3-44.8); MPV 9.5 fL (7.6-11.3); RBC Red Blood Cell Count 3.81 M/uL (3.86-4.86)
--- NOTE | 2018-11-03 18:12 | RAD REPORT ---
EXAM DESCRIPTION: RAD - Chest Single View - 11/03/2018 5:14 pm CLINICAL HISTORY: Cough and congestion COMPARISON: October 27 TECHNIQUE: AP portable chest image was obtained 1710 hour . FINDINGS: Lung volumes are low accentuating baseline interstitial pattern. No new mass or peripheral consolidation. Nodularity in the lung parenchyma has not changed. No failure or volume overload seen . Heart and vasculature are normal. No measurable pleural effusion and no pneumothorax. No acute bony abnormality seen. No acute aortic findings suspected. IMPRESSION: Limited shallow inspiration film not significantly different from October 27.
--- NOTE | 2018-11-03 18:21 | ER ---
Nurse's Notes [facility] Name: Veronica Hannah Age: 68 yrs Sex: Female : 1950 Arrival Date: 11/03/2018 Time: 16:10 Bed 16 Private MD: Diagnosis: Bronchitis, not specified as acute or chronic Presentation: 11/03 16:15 Presenting complaint: states: "She's having a lot of coughing problems and aj1 diarrhea for the past few days" Denies fever. Transition of care: patient was not received from another setting of care. Onset of symptoms was November 01, 2017. Risk Assessment: Do you want to hurt yourself or someone else? Patient reports no desire to harm self or others. Initial Sepsis Screen: Does the patient meet any 2 criteria? No. Patient's initial sepsis screen is negative. Does the patient have a suspected source of infection? No. Patient's initial sepsis screen is negative. Care prior to arrival: None. 16:15 Method Of Arrival: Ambulatory aj 16:15 Acuity: BALJIT 3 aj1 Triage Assessment: 16:17 General: Appears in no apparent distress. comfortable, Behavior is calm, cooperative, aj1 appropriate for age. Pain: Denies pain. Neuro: Level of Consciousness is awake, alert, obeys commands. Cardiovascular: Patient's skin is warm and dry. Respiratory: Airway is patent Respiratory effort is even, unlabored, Respiratory pattern is regular, symmetrical. Respiratory: Reports cough that is persistent. Historical: - Allergies: 16:17 No Known Allergies; aj1 - Home Meds: 16:17 amlodipine oral [Active]; atorvastatin Oral [Active]; Diovan Oral [Active]; aj1 levothyroxine oral [Active]; Prozac Oral [Active]; 16:34 hydrochlorothiazide 25 mg Oral tab 1 tab once daily [Active]; benzonatate 200 mg oral rv cap 1 cap 3 times per day [Active]; losartan 100 mg oral tab 1 tab once daily [Active]; fluoxetine 40 mg Oral cap 1 cap once daily [Active]; - PMHx: 16:17 Asthma; breast cancer; Cerebral Palsy; Hypertension; Hypothyroidism; aj1 - Immunization history:: Flu vaccine is up to date. - Social history:: Smoking status: Patient/guardian denies using tobacco. - Ebola Screening: : Patient denies travel to an Ebola-affected area in the 21 days before illness onset. Screenin:28 Abuse screen: Denies threats or abuse. Denies injuries from another. Nutritional rv screening: No deficits noted. Tuberculosis screening: No symptoms or risk factors identified. Fall Risk None identified. Assessment: 16:22 General: Appears in no apparent distress. comfortable, Behavior is calm, cooperative. rv Pain: Denies pain. Neuro: Level of Consciousness is awake, alert, obeys commands, Oriented to person, place, time, situation. 16:27 Cardiovascular: Capillary refill < 3 seconds. Respiratory: Airway is patent Breath rv sounds are clear bilaterally. Respiratory: Reports cough that is persistent. GI: Reports diarrhea. : No signs and/or symptoms were reported regarding the genitourinary system. EENT: No signs and/or symptoms were reported regarding the EENT system. Derm: Skin is intact. Musculoskeletal: No signs and/or symptoms reported regarding the musculoskeletal system. Vital Signs: 16:17 BP 145 / 69; Pulse 65; Resp 18; Temp 97.7; Pulse Ox 97% on R/A; Weight 56.7 kg (R); aj1 Height 4 ft. 11 in. (149.86 cm) (R); Pain 0/10; 18:35 BP 139 / 71; Pulse 71; Resp 17; Pulse Ox 99% ; rv 16:17 Body Mass Index 25.25 (56.70 kg, 149.86 cm) aj ED Course: 16:10 Patient arrived in ED. mr 16:16 Triage completed. aj1 16:17 Arm band placed on Patient placed in an exam room. aj1 16:22 Cameron Garrido, NICOLA is Primary Nurse. rv 16:28 Jules Monique MD is Attending Physician. kdr 16:28 Patient has correct armband on for positive identification. Bed in low position. Call rv light in reach. Side rails up X 1. Adult w/ patient. Pulse ox on. NIBP on. 16:45 Inserted saline lock: 20 gauge in left ,using aseptic technique. foot Blood collected. rv 16:45 First set of blood cultures drawn by me. rv 17:05 Second set of blood cultures drawn by me. rv 17:14 CXR XRAY In Process Unspecified. EDMS 18:36 No provider procedures requiring assistance completed. IV discontinued, intact, rv bleeding controlled, No redness/swelling at site. Pressure dressing applied. Administered Medications: No medications were administered Outcome: 18:20 Discharge ordered by . kdr 18:36 Discharged to home ambulatory. rv 18:36 Condition: good 18:36 Discharge instructions given to patient, family, Instructed on discharge instructions, follow up and referral plans. Demonstrated understanding of instructions, follow-up care, medications. 18:36 Patient left the ED. rv Signatures: Dispatcher [employer] EDMS Yeni Luna, RN RN aj1 Jules Monique MD MD kdr Rivera, Mary mr Cameron Garrido RN RN rv
--- NOTE | 2018-11-03 18:22 | EDPHYS ---
Physician Documentation [facility] Name: Veronica Hannah Age: 68 yrs Sex: Female : 1950 Arrival Date: 11/03/2018 Time: 16:10 Bed 16 Private MD: ED Physician Jules Monique HPI: 11/03 18:23 This 68 yrs old Female presents to ER via Ambulatory with complaints of kdr Cough, Congestion. 18:23 The patient or guardian reports cough, that is intermittent, described as moderate, kdr with productive sputum, that is white, difficulty breathing. Onset: The symptoms/episode began/occurred Last few days. Severity of symptoms: At their worst the symptoms were mild, in the emergency department the symptoms are unchanged. Modifying factors: The symptoms are alleviated by nothing, the symptoms are aggravated by Exertion and coughing. Associated signs and symptoms: Pertinent positives: this patient has no pertinent positive symptoms Pertinent negatives: chest pain, diarrhea, ear ache, fever, nausea, rhinorrhea, sore throat, vomiting. The patient has not experienced similar symptoms in the past. The patient has not recently seen a physician. Historical: - Allergies: 16:17 No Known Allergies; aj1 - Home Meds: 16:17 amlodipine oral [Active]; atorvastatin Oral [Active]; Diovan Oral [Active]; aj1 levothyroxine oral [Active]; Prozac Oral [Active]; 16:34 hydrochlorothiazide 25 mg Oral tab 1 tab once daily [Active]; benzonatate 200 mg oral rv cap 1 cap 3 times per day [Active]; losartan 100 mg oral tab 1 tab once daily [Active]; fluoxetine 40 mg Oral cap 1 cap once daily [Active]; - PMHx: 16:17 Asthma; breast cancer; Cerebral Palsy; Hypertension; Hypothyroidism; aj1 - Immunization history:: Flu vaccine is up to date. - Social history:: Smoking status: Patient/guardian denies using tobacco. - Ebola Screening: : Patient denies travel to an Ebola-affected area in the 21 days before illness onset. ROS: 18:23 Constitutional: Negative for fever, chills, and weight loss, Eyes: Negative for injury, kdr pain, redness, and discharge, ENT: Negative for injury, pain, and discharge, Neck: Negative for injury, pain, and swelling, Cardiovascular: Negative for chest pain, palpitations, and edema, Abdomen/GI: Negative for abdominal pain, nausea, vomiting, diarrhea, and constipation, Back: Negative for injury and pain, : Negative for injury, bleeding, discharge, and swelling, MS/Extremity: Negative for injury and deformity, Skin: Negative for injury, rash, and discoloration, Neuro: Negative for headache, weakness, numbness, tingling, and seizure activity. Psych: Negative for depression, anxiety, suicide ideation, homicidal ideation, and hallucinations, Allergy/Immunology: Negative for hives, rash, and allergies, Endocrine: Negative for neck swelling, polydipsia, polyuria, polyphagia, and marked weight changes, Hematologic/Lymphatic: Negative for swollen nodes, abnormal bleeding, and unusual bruising. 18:23 Respiratory: Positive for cough, with clear sputum, dyspnea on exertion, shortness of breath, on exertion. Exam: 18:23 Constitutional: This is a well developed, well nourished patient who is awake, alert, kdr and in no acute distress. Head/Face: Normocephalic, atraumatic. Eyes: Pupils equal round and reactive to light, extra-ocular motions intact. Lids and lashes normal. Conjunctiva and sclera are non-icteric and not injected. Cornea within normal limits. Periorbital areas with no swelling, redness, or edema. Neck: Trachea midline, no thyromegaly or masses palpated, and no cervical lymphadenopathy. Supple, full range of motion without nuchal rigidity, or vertebral point tenderness. No Meningismus. Chest/axilla: Normal chest wall appearance and motion. Nontender with no deformity. No lesions are appreciated. Cardiovascular: Regular rate and rhythm with a normal S1 and S2. No gallops, murmurs, or rubs. Normal PMI, no JVD. No pulse deficits. Respiratory: Lungs have equal breath sounds bilaterally, clear to auscultation and percussion. No rales, rhonchi or wheezes noted. No increased work of breathing, no retractions or nasal flaring. Abdomen/GI: Soft, non-tender, with normal bowel sounds. No distension or tympany. No guarding or rebound. No evidence of tenderness throughout. Back: No spinal tenderness. No costovertebral tenderness. Full range of motion. Skin: Warm, dry with normal turgor. Normal color with no rashes, no lesions, and no evidence of cellulitis. MS/ Extremity: Pulses equal, no cyanosis. Neurovascular intact. Full, normal range of motion. Neuro: Awake and alert, GCS 15, oriented to person, place, time, and situation. Cranial nerves II-XII grossly intact. Motor strength 5/5 in all extremities. Sensory grossly intact. Cerebellar exam normal. Normal gait. Psych: Awake, alert, with orientation to person, place and time. Behavior, mood, and affect are within normal limits. Vital Signs: 16:17 BP 145 / 69; Pulse 65; Resp 18; Temp 97.7; Pulse Ox 97% on R/A; Weight 56.7 kg (R); aj1 Height 4 ft. 11 in. (149.86 cm) (R); Pain 0/10; 18:35 BP 139 / 71; Pulse 71; Resp 17; Pulse Ox 99% ; rv 16:17 Body Mass Index 25.25 (56.70 kg, 149.86 cm) aj1 MDM: 18:20 Patient medically screened. kdr 18:23 Data reviewed: vital signs, nurses notes, lab test result(s), radiologic studies. kdr Counseling: I had a detailed discussion with the patient and/or guardian regarding: the historical points, exam findings, and any diagnostic results supporting the discharge/admit diagnosis, lab results, radiology results. 11/03 16:41 Order name: CBC with Diff; Complete Time: 18:20 kdr 11/03 16:41 Order name: Chem 7; Complete Time: 18:20 kdr 11/03 16:41 Order name: CXR XRAY; Complete Time: 18:20 kdr 11/03 16:41 Order name: Blood Culture Adult (2) kdr 11/03 17:38 Order name: Flu; Complete Time: 18:20 kdr Administered Medications: No medications were administered Disposition: 11/03/18 18:20 Discharged to Home. Impression: Bronchitis, not specified as acute or chronic. - Condition is Stable. - Discharge Instructions: How to Use an Inhaler, Acute Bronchitis, [id number]. - Prescriptions for Promethazine VC- Codeine 6.25-5-10 mg/5 mL Oral syrup - take 5 milliliter by ORAL route every 4-6 hours As needed as needed, not to exceed 30 mL in 24 hours; 100 milliliter. Prednisone 20 mg Oral Tablet - take 1 tablet by ORAL route 2 times per day for 3 days; 6 tablet. Tessalon Perles 100 mg Oral Capsule - take 1 capsule by ORAL route every 8 hours As needed; 15 capsule. Albuterol Sulfate 90 mcg/actuation - inhale 1-2 puff by INHALATION route every 4-6 hours; 1 Inhaler. - Medication Reconciliation Form, Thank You Letter form. - Follow up: Private Physician; When: 2 - 3 days; Reason: If symptoms return, Further diagnostic work-up, Recheck today's complaints, Continuance of care, Re-evaluation by your physician. - Problem is new. - Symptoms have improved. Signatures: Dispatcher [employer] EDMS Yeni Luna RN RN aj1 Jules Monique MD MD kdr Cameron Garrido RN RN rv Corrections: (The following items were deleted from the chart) 18:36 18:20 11/03/2018 18:20 Discharged to Home. Impression: Bronchitis, not specified as rv acute or chronic. Condition is Stable. Forms are Medication Reconciliation Form, Thank You Letter, Antibiotic Education, Prescription Opioid Use. Follow up: Private Physician; When: 2 - 3 days; Reason: If symptoms return, Further diagnostic work-up, Recheck today's complaints, Continuance of care, Re-evaluation by your physician. Problem is new. Symptoms have improved. kdr
== END 2018-11-03 18:36 | disposition home or self-care (01) ==
LOC: ER 16:08
DX: J40 Bronchitis, not specified as acute or chronic (principal); J45.909 Unspecified asthma, uncomplicated; I10 Essential (primary) hypertension; E03.9 Hypothyroidism, unspecified; Z79.51 Long term (current) use of inhaled steroids
CPT/HCPCS: 36415; 71045; 80048; 85025; 87040; 87804; 99284

== ENCOUNTER 2018-11-05 09:08 | Emergency (ER) | payer OTHER ==
--- OUTSIDE RECORDS SUMMARY | 2018-11-05 09:16 | XMS REPORT | Clinical Summary ---
:1950 Author Organization [facility] [employer] Address [address] [place] [address] Care Team Providers Name Role Phone Marianne [...] INFLUENZA VACCINE 02/14/2019 Results Not on fileafter 11/04/2017 Insurance Payer Benefit Plan / Group Subscriber ID Type Phone Address MEDICARE MEDICARE PART A AND B xxxxxxxxxx Medicare [place], [place] AETNA AETNA [facility] xxxxxxxxx Indemnity Advance Directives Patient has advance care planning documents on file. For more information, please contact:As[address] [place] [address]
--- NOTE | 2018-11-05 09:29 | ER ---
Nurse's Notes [facility] Name: Veronica Hannah Age: 68 yrs Sex: Female : 1950 Arrival Date: 11/05/2018 Time: 09:11 Bed Waiting Private MD: Diagnosis: Suture Removal - right forearm Presentation: 11/05 09:12 Presenting complaint: Patient states: "I need a work excuse and maybe I need the aa5 sutures removed now". Pt reports sutures to right FA were placed on 10/27/18. Transition of care: patient was not received from another setting of care. Onset of symptoms was November 05, 2018. Risk Assessment: Do you want to hurt yourself or someone else? Patient reports no desire to harm self or others. Initial Sepsis Screen: Does the patient meet any 2 criteria? No. Patient's initial sepsis screen is negative. Does the patient have a suspected source of infection? No. Patient's initial sepsis screen is negative. Care prior to arrival: None. 09:12 Method Of Arrival: Ambulatory aa5 09:12 Acuity: BALJIT 4 aa5 Historical: - Allergies: 09:13 No Known Allergies; aa5 - PMHx: 09:13 Asthma; breast cancer; Cerebral Palsy; Hypertension; Hypothyroidism; aa5 - PSHx: 09:13 [place] mastectomy; aa5 - Immunization history:: Adult Immunizations unknown. - Social history:: Smoking status: Patient/guardian denies using tobacco. - Ebola Screening: : No symptoms or risks identified at this time. Screenin:23 Abuse screen: No signs of abuse noted. Nutritional screening: No deficits noted. aa5 Tuberculosis screening: No symptoms or risk factors identified. Fall Risk Fall in past 12 months (25 points). Mental Status- Overestimates/Forgets Limitations (15 pts.). Total Robledo Fall Scale indicates Low Risk Score (25-44 pts). Assessment: 09:15 General: Appears comfortable, Behavior is calm, cooperative. Pain: Denies pain. Neuro: aa5 Level of Consciousness is awake, alert, obeys commands, Oriented to person, place, time, situation. Cardiovascular: Patient's skin is warm and dry. Respiratory: Airway is patent Respiratory effort is even, unlabored, Respiratory pattern is regular, symmetrical. GI: No signs and/or symptoms were reported involving the gastrointestinal system. : No signs and/or symptoms were reported regarding the genitourinary system. EENT: No signs and/or symptoms were reported regarding the EENT system. Derm: Skin is pink, warm \\T\\ dry. 5 sutures noted to right FA, no redness noted to site. Musculoskeletal: Range of motion: intact in all extremities. 09:25 Reassessment: 5 sutures removed and steri strips placed per Dr. Monique, pt tolerated aa5 well . 09:35 Reassessment: Patient is alert, oriented x 3, equal unlabored respirations, skin aa5 warm/dry/pink. Vital Signs: 09:13 BP 119 / 55; Pulse 70; Resp 16 S; Temp 98.3(TE); Pulse Ox 96% on R/A; Pain 0/10; aa5 ED Course: 09:11 Patient arrived in ED. aa5 09:12 Triage completed. aa5 09:12 Arm band placed on. aa5 09:12 Patient has correct armband on for positive identification. aa5 09:14 Charity Mueller, RN is Primary Nurse. aa5 09:25 No provider procedures requiring assistance completed. Patient did not have IV access aa5 during this emergency room visit. 09:27 Jules Monique MD is Attending Physician. kdr Administered Medications: No medications were administered Outcome: 09:14 No charge visit due to suture removal. aa5 09:29 Discharge ordered by . kdr 09:35 Discharged to home ambulatory. aa5 09:35 Condition: stable 09:35 Discharge instructions given to patient, Instructed on discharge instructions, follow up and referral plans. Demonstrated understanding of instructions, follow-up care. 09:35 Patient left the ED. aa5 Signatures: Jules Monique MD MD kdr Charity Mueller, RN RN aa5
--- NOTE | 2018-11-05 09:30 | EDPHYS ---
Physician Documentation [facility] Name: Veronica Hannah Age: 68 yrs Sex: Female : 1950 Arrival Date: 11/05/2018 Time: 09:11 Bed Waiting Private MD: ED Physician Jules Monique HPI: 11/05 09:30 This 68 yrs old Female presents to ER via Ambulatory with complaints of kdr Suture Removal, Medical Clearance. 09:30 The patient has sutures on the palmar aspect of right forearm. Previous treatment: The kdr patient was initially treated 9 day(s) ago, the care was rendered at [facility], Treatment type: The patient's original treatment included sutures, Previous recheck: the patient's last recheck was 2 day(s) ago. Sutures/danielito progress: The patient has no c/o's. The wound is well-healing with no redness, swelling, discharge, or dehiscence reported. The patient has not experienced similar symptoms in the past. The patient has been recently seen by a physician: Diagnosed with bronchitis on Monday - wound looked good then. Historical: - Allergies: 09:13 No Known Allergies; aa5 - PMHx: 09:13 Asthma; breast cancer; Cerebral Palsy; Hypertension; Hypothyroidism; aa5 - PSHx: 09:13 [place] mastectomy; aa5 - Immunization history:: Adult Immunizations unknown. - Social history:: Smoking status: Patient/guardian denies using tobacco. - Ebola Screening: : No symptoms or risks identified at this time. ROS: 09:30 Constitutional: Negative for fever, chills, and weight loss, Skin: Negative for injury, kdr rash, and discoloration. 09:30 Skin: Positive for Well healing wound to right forearm. Exam: 09:30 Constitutional: This is a well developed, well nourished patient who is awake, alert, kdr and in no acute distress. 09:30 Skin: Wound recheck: Suture laceration closure: the wound is healing well, the edges are well approximated, no drainage, no erythema, no swelling, mild dehiscence. Vital Signs: 09:13 BP 119 / 55; Pulse 70; Resp 16 S; Temp 98.3(TE); Pulse Ox 96% on R/A; Pain 0/10; aa5 Procedures: 09:30 Suture/Staple removal: Removed 5 sutures, from palmar aspect of right forearm, site kdr appears well healed, dressed with Steri-strips applied. Patient tolerated well. MDM: 09:29 Patient medically screened. kdr 09:30 Data reviewed: vital signs, nurses notes. Counseling: I had a detailed discussion with kdr the patient and/or guardian regarding: the historical points, exam findings, and any diagnostic results supporting the discharge/admit diagnosis, the need for outpatient follow up. Administered Medications: No medications were administered Disposition: 11/05/18 09:29 Discharged to Home. Impression: Suture Removal - right forearm. - Condition is Stable. - Discharge Instructions: Sterile Tape Wound Care, Suture Removal, Care After. - Medication Reconciliation Form, Thank You Letter, Work release form form. - Follow up: Private Physician; When: 2 - 3 days; Reason: If symptoms return, Further diagnostic work-up, Recheck today's complaints, Continuance of care, Re-evaluation by your physician. - Problem is an ongoing problem. - Symptoms have improved. Signatures: Jules Monique MD MD kdr Charity Mueller RN RN aa5 Corrections: (The following items were deleted from the chart) 09:35 09:29 11/05/2018 09:29 Discharged to Home. Impression: Suture Removal - right forearm. aa5 Condition is Stable. Forms are Medication Reconciliation Form, Thank You Letter, Antibiotic Education, Prescription Opioid Use. Follow up: Private Physician; When: 2 - 3 days; Reason: If symptoms return, Further diagnostic work-up, Recheck today's complaints, Continuance of care, Re-evaluation by your physician. Problem is an ongoing problem. Symptoms have improved. kdr
== END 2018-11-05 09:35 | disposition home or self-care (01) ==
LOC: ER 09:08
DX: Z48.02 Encounter for removal of sutures (principal); J45.909 Unspecified asthma, uncomplicated; C50.919 Malignant neoplasm of unspecified site of unspecified female breast; I10 Essential (primary) hypertension; E03.9 Hypothyroidism, unspecified; G80.9 Cerebral palsy, unspecified

== ENCOUNTER 2018-11-07 09:04 | Emergency (ER) | payer OTHER ==
--- OUTSIDE RECORDS SUMMARY | 2018-11-07 09:15 | XMS REPORT | Clinical Summary ---
:1950 Author Organization [employer] Address [address] [place] [address] Care Team Providers Name Role Phone Marianne [...] INFLUENZA VACCINE 02/14/2019 Results Not on fileafter 11/06/2017 Insurance Payer Benefit Plan / Group Subscriber ID Type Phone Address MEDICARE MEDICARE PART A AND B xxxxxxxxxx Medicare [place], [place] AETNA AETNA [facility] xxxxxxxxx Indemnity Advance Directives Patient has advance care planning documents on file. For more information, please contact:As[address] [place] [address]
--- NOTE | 2018-11-07 09:55 | ER ---
Nurse's Notes [facility] Name: Veronica Hannah Age: 68 yrs Sex: Female : 1950 Arrival Date: 11/07/2018 Time: 09:06 Bed 17 Private MD: Diagnosis: Laceration without foreign body of right forearm-heading by secondary intention Presentation: 11/07 09:14 Presenting complaint: Patient states: Pt had sutures removed from R forearm 2 days ago. ss Pt reports that shortly after removal, her wound opened back up. No redness, bleeding or drainage noted. Transition of care: patient was not received from another setting of care. Onset of symptoms was November 05, 2018. Risk Assessment: Do you want to hurt yourself or someone else? Patient reports no desire to harm self or others. Initial Sepsis Screen: Does the patient meet any 2 criteria? No. Patient's initial sepsis screen is negative. Does the patient have a suspected source of infection? No. Patient's initial sepsis screen is negative. Care prior to arrival: None. 09:14 Method Of Arrival: Ambulatory ss 09:14 Acuity: BALJIT 5 Triage Assessment: 09:33 General: Appears in no apparent distress. well groomed, Behavior is calm, cooperative, tw2 appropriate for age. Pain: Denies pain. Historical: - Allergies: :17 No Known Allergies; - Home Meds: 09:40 amlodipine oral [Active]; atorvastatin Oral [Active]; benzonatate 200 mg Oral cap 1 cap tw2 3 times per day [Active]; Diovan Oral [Active]; fluoxetine 40 mg Oral cap 1 cap once daily [Active]; hydrochlorothiazide 25 mg Oral tab 1 tab once daily [Active]; levothyroxine oral [Active]; losartan 100 mg Oral tab 1 tab once daily [Active]; Prozac Oral [Active]; - PMHx: 09:17 Asthma; breast cancer; Cerebral Palsy; Hypertension; Hypothyroidism; ss - PSHx: :17 [place] mastectomy; - Immunization history:: Adult Immunizations up to date. - Social history:: Smoking status: Patient/guardian denies using tobacco. - Ebola Screening: : Patient denies exposure to infectious person Patient denies travel to an Ebola-affected area in the 21 days before illness onset. - Family history:: not pertinent. Screenin:17 Abuse screen: Denies threats or abuse. Nutritional screening: No deficits noted. tw2 Tuberculosis screening: No symptoms or risk factors identified. Fall Risk Secondary diagnosis (15 points) impaired mobility. Assessment: 09:41 General: Appears in no apparent distress. Behavior is calm, cooperative, appropriate tw2 for age. Pain: Denies pain. Derm: Wound noted right arm Wound is approx 1cm wound, no drainage, redness, swelling noted. instructed per Dr. Phipps to apply neosporin and bandaid. Vital Signs: 09:17 BP 158 / 66; Pulse 70; Resp 18; Temp 98.4(TE); Pulse Ox 98% on R/A; Weight 57.15 kg; ss Height 4 ft. 11 in. (149.86 cm); Pain 0/10; 09:17 Body Mass Index 25.45 (57.15 kg, 149.86 cm) ED Course: 09:06 Patient arrived in ED. mr 09:07 Arm band placed on. tw2 09:08 Bed in low position. Call light in reach. Pulse ox on. NIBP on. tw2 09:09 Luis Phipps MD is Attending Physician. mark 09:13 Ragini Buckley, NICOLA is Primary Nurse. tw2 09:16 Triage completed. 09:17 Arm band placed on left wrist. 09:42 No provider procedures requiring assistance completed. Patient did not have IV access tw2 during this emergency room visit. 09:43 Dressings: Band aid x 1 right arm with Neosporin to wound., pt tolerated well. tw2 Administered Medications: 09:42 Drug: Neosporin Ointment 1 application Route: Topical; Site: right forearm; tw2 Outcome: 09:54 Discharge ordered by . [facility] 09:59 Discharged to home ambulatory. tw2 09:59 Condition: stable 09:59 Discharge instructions given to patient, Instructed on discharge instructions, follow up and referral plans. wound care, Demonstrated understanding of instructions, follow-up care, wound care. 10:00 Patient left the ED. tw2 Signatures: Luis Phipps MD MD cha Rivera, Mary Rosa Bates, NICOLA RN Ragini Buckley RN RN tw2 Corrections: (The following items were deleted from the chart) 09:16 09:14 Presenting complaint: ss ss
--- NOTE | 2018-11-07 09:55 | EDPHYS ---
Physician Documentation [facility] Name: Veronica Hannah Age: 68 yrs Sex: Female : 1950 Arrival Date: 11/07/2018 Time: 09:06 Bed 17 Private MD: ED Physician Luis Phipps HPI: 11/07 09:49 This 68 yrs old Female presents to ER via Ambulatory with complaints of Wound mark Recheck. 09:49 Patient presents to ED for recheck of: laceration. The affected area is on the palmar mark aspect of right forearm. Previous treatment: The patient was initially treated 10 day(s) ago. Progress: The patient reports excellent improvement in the affected area. There has been resolution, improvement, or non-development of any drainage, fever, pain, redness or swelling. The patient has not experienced similar symptoms in the past. Historical: - Allergies: 09:17 No Known Allergies; ss - Home Meds: 09:40 amlodipine oral [Active]; atorvastatin Oral [Active]; benzonatate 200 mg Oral cap 1 cap tw2 3 times per day [Active]; Diovan Oral [Active]; fluoxetine 40 mg Oral cap 1 cap once daily [Active]; hydrochlorothiazide 25 mg Oral tab 1 tab once daily [Active]; levothyroxine oral [Active]; losartan 100 mg Oral tab 1 tab once daily [Active]; Prozac Oral [Active]; - PMHx: 09:17 Asthma; breast cancer; Cerebral Palsy; Hypertension; Hypothyroidism; ss - PSHx: 09:17 [place] mastectomy; ss - Immunization history:: Adult Immunizations up to date. - Social history:: Smoking status: Patient/guardian denies using tobacco. - Ebola Screening: : Patient denies exposure to infectious person Patient denies travel to an Ebola-affected area in the 21 days before illness onset. - Family history:: not pertinent. ROS: 09:49 Constitutional: Negative for fever, chills, and weight loss, Eyes: Negative for injury, mark pain, redness, and discharge, ENT: Negative for injury, pain, and discharge, Neck: Negative for injury, pain, and swelling, Cardiovascular: Negative for chest pain, palpitations, and edema, Respiratory: Negative for shortness of breath, cough, wheezing, and pleuritic chest pain, Abdomen/GI: Negative for abdominal pain, nausea, vomiting, diarrhea, and constipation, Back: Negative for injury and pain, : Negative for injury, bleeding, discharge, and swelling, Skin: Negative for injury, rash, and discoloration, Neuro: Negative for headache, weakness, numbness, tingling, and seizure, Psych: Negative for depression, anxiety, suicide ideation, homicidal ideation, and hallucinations, Allergy/Immunology: Negative for hives, rash, and allergies, Endocrine: Negative for neck swelling, polydipsia, polyuria, polyphagia, and marked weight changes, Hematologic/Lymphatic: Negative for swollen nodes, abnormal bleeding, and unusual bruising. 09:49 MS/extremity: Positive for injury or acute deformity, laceration, of the palmar aspect of right forearm. Exam: 09:49 Constitutional: This is a well developed, well nourished patient who is awake, alert, mark and in no acute distress. Head/Face: Normocephalic, atraumatic. Eyes: Pupils equal round and reactive to light, extra-ocular motions intact. Lids and lashes normal. Conjunctiva and sclera are non-icteric and not injected. Cornea within normal limits. Periorbital areas with no swelling, redness, or edema. ENT: Nares patent. No nasal discharge, no septal abnormalities noted. Tympanic membranes are normal and external auditory canals are clear. Oropharynx with no redness, swelling, or masses, exudates, or evidence of obstruction, uvula midline. Mucous membranes moist. Neck: Trachea midline, no thyromegaly or masses palpated, and no cervical lymphadenopathy. Supple, full range of motion without nuchal rigidity, or vertebral point tenderness. No Meningismus. Chest/axilla: Normal chest wall appearance and motion. Nontender with no deformity. No lesions are appreciated. Cardiovascular: Regular rate and rhythm with a normal S1 and S2. No gallops, murmurs, or rubs. Normal PMI, no JVD. No pulse deficits. Respiratory: Lungs have equal breath sounds bilaterally, clear to auscultation and percussion. No rales, rhonchi or wheezes noted. No increased work of breathing, no retractions or nasal flaring. Abdomen/GI: Soft, non-tender, with normal bowel sounds. No distension or tympany. No guarding or rebound. No evidence of tenderness throughout. Back: No spinal tenderness. No costovertebral tenderness. Full range of motion. Skin: Warm, dry with normal turgor. Normal color with no rashes, no lesions, and no evidence of cellulitis. Neuro: Awake and alert, GCS 15, oriented to person, place, time, and situation. Cranial nerves II-XII grossly intact. Motor strength 5/5 in all extremities. Sensory grossly intact. Cerebellar exam normal. Normal gait. Psych: Awake, alert, with orientation to person, place and time. Behavior, mood, and affect are within normal limits. 09:49 Musculoskeletal/extremity: Extremities: noted in the palmar aspect of right forearm: laceration. Vital Signs: 09:17 BP 158 / 66; Pulse 70; Resp 18; Temp 98.4(TE); Pulse Ox 98% on R/A; Weight 57.15 kg; ss Height 4 ft. 11 in. (149.86 cm); Pain 0/10; 09:17 Body Mass Index 25.45 (57.15 kg, 149.86 cm) MDM: 09:09 Patient medically screened. [facility] 09:51 Data reviewed: vital signs, nurses notes. [facility] 11/07 09:49 Order name: Wound Care; Complete Time: 09:52 [facility] Administered Medications: 09:42 Drug: Neosporin Ointment 1 application Route: Topical; Site: right forearm; tw2 Disposition: 11/07/18 09:54 Discharged to Home. Impression: Laceration without foreign body of right forearm - heading by secondary intention. - Condition is Stable. - Discharge Instructions: Wound Care. - Medication Reconciliation Form, Thank You Letter, Antibiotic Education, Prescription Opioid Use form. - Follow up: Private Physician; When: 1 week; Reason: Recheck today's complaints, Continuance of care, Re-evaluation by your physician. - Problem is new. - Symptoms have improved. Signatures: Luis Phipps MD MD cha Smirch, Shelby RN RN Ragini Buckley RN RN tw2 Corrections: (The following items were deleted from the chart) 10:00 09:54 11/07/2018 09:54 Discharged to Home. Impression: Laceration without foreign body tw2 of right forearm - heading by secondary intention. Condition is Stable. Forms are Medication Reconciliation Form, Thank You Letter, Antibiotic Education, Prescription Opioid Use. Follow up: Private Physician; When: 1 week; Reason: Recheck today's complaints, Continuance of care, Re-evaluation by your physician. Problem is new. Symptoms have improved. mark
== END 2018-11-07 10:00 | disposition home or self-care (01) ==
LOC: ER 09:04
DX: T81.30XD Disruption of wound, unspecified, subsequent encounter (principal); I10 Essential (primary) hypertension; E03.9 Hypothyroidism, unspecified
CPT/HCPCS: 99283

== ENCOUNTER 2019-11-25 17:09 | Emergency (ER) | payer OTHER ==
--- OUTSIDE RECORDS SUMMARY | 2019-11-25 17:11 | XMS REPORT | Clinical Summary ---
:1950 Author Organization [facility] Address [address] [place] [address] Care Team Providers Name Role Phone Marianne [...] Last Done Comments BREAST CANCER SCREENING 2000 COLONOSCOPY SCREENING 2000 SHINGLES VACCINES (#1) 2000 65+ PNEUMOCOCCAL VACCINE (1 of 2 - PCV13) 2015 INFLUENZA VACCINE 02/15/2020 Results Not on fileafter 11/24/2018 Insurance Payer Benefit Plan / Subscriber ID Effective Dates Phone Addre ss Type Group MEDICARE MEDICARE PART A AND xxxxxxxxxx 1974-Oral [place] Medicare B t AETNA [facility]ETNA [facility] 2000-Oral [place] Advance Directives For more information, please contact: [phone] Type Date Recorded Patient Physician/Ophthalmologist Explanati on Advance Directives, 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
--- OUTSIDE RECORDS SUMMARY | 2019-11-25 17:11 | XMS REPORT ---
:1950 Author Organization [facility] t Address [address] [place] [address] [address] [place] [address] Care Team Providers Name Role Phone Unavailable Unavailable Unavailable Problems This patient has no known problems. Allergies, Adverse Reactions, Alerts This patient has no known allergies or adverse reactions. Medications This patient has no known medications.
--- OUTSIDE RECORDS SUMMARY | 2019-11-25 17:11 | XMS REPORT | Summary of Care ---
:1950 Author Organization [facility] - Health Address [address] [place] [address] Care Team Providers Name Role Phone rajendra Serena Primary Care Provider Encounter Details Date Type Department Care Team Description 10/31/2019 Orders Only [facility] Doctor Unassigned, No [address] [facility] [place] [address] [address] [place] [address] Allergies No Known Allergiesdocumented as of this encounter (statuses as of 10/31/2019) Medications Medication Sig Dispensed Refills Start Date End Date Status amLODIPine (NORVASC) 10 mg 0 04/25/2015 Active tablet FLUoxetine (PROZAC) 40 mg 0 03/12/2015 Active capsule hydralAZINE (APRESOLINE) 3 (three) 0 05/11/2015 Active 50 mg tablet times daily with meals. hydrochlorothiazide 0 04/25/2015 Active (ESIDRIX) 25 mg tablet levothyroxine (SYNTHROID) 0 04/21/2015 Active 75 mcg tablet losartan (COZAAR) 100 mg 0 04/25/2015 Active tablet atorvastatin (LIPITOR) 40 0 05/28/2016 Active mg tablet brompheniramine-pseudoephe 0 06/07/2016 Active drine-DM (BROMFED DM) 2-30-10 mg/5 mL syrup vit Take 2 0 Active C/E/Zn/coppr/lutein/zeaxan capsules by (PRESERVISION AREDS-2 mouth daily. ORAL) documented as of this encounter (statuses as of 10/31/2019) Active Problems Problem Noted Date Essential hypertension 04/12/2019 Dyslipidemia 04/12/2019 Syncope and collapse 04/11/2019 Bilateral hand pain 05/14/2015 documented as of this encounter (statuses as of 10/31/2019) Social History Tobacco Use Types Packs/Day Years Used Date Never Smoker Smokeless Tobacco: Never Used Alcohol Use Drinks/Week oz/Week Comments No Sex Assigned at Date Recorded Not on file Job Start Date Occupation Industry Not on file Not on file Not on file Travel History Travel Start Travel End No recent travel history available. documented as of this encounter Last Filed Vital Signs Not on filedocumented in this encounter Plan of Treatment Health Maintenance Due Date Last Done Comments HEPATITIS C (HCV) SCREEN 1950 DTaP,Tdap,and Td Vaccines (1 - Tdap) 1961 Breast Cancer Screening (MAMMOGRAM) 1990 COLONOSCOPY 2000 Zoster Recombinant Vaccine (SHINGRIX) (1 2000 of 2) Medicare Wellness Visit 2015 Osteoporosis Screening 2015 PNEUMOCOCCAL VACCINES 65+ (1 of 2 - PCV13) 2015 INFLUENZA VACCINE Completed 04/04/2019, 03/03/2017 documented as of this encounter Procedures Procedure Name Priority Date/Time Associated Diagnosis Comme nts ASSIGNMENT OF BENEFITS Routine 10/31/2019 8:03 AM CDT documented in this encounter Results Not on filedocumented in this encounter Insurance Payer Benefit Plan / Subscriber ID Effective Dates Phone Addre ss Type Group MEDICARE MEDICARE PART A xxxxxxxxxxx 1974-Oral [phone] Medicare & B t 82 [id number] [place] [id number] AETNA AETNA INDEMNITY [id number] 2013-Oral Indemnity t documented as of this encounter
--- OUTSIDE RECORDS SUMMARY | 2019-11-25 17:12 | XMS REPORT | Summary of Care ---
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 METABOLIC PANEL LAB Routine Benign hyp ertension 10/31/2019 8:27 AM (25196) Presenile dementia with CDT depression without behavioral distu rbance Hyperlipidemia, unspecified hyperlipidemia type Hyperglycemia LIPID PANEL LAB Routine Benign hypertens ion 10/31/2019 8:27 AM ([id number])(TOTAL Presenile dementia with CDT CHOLESTEROL, depression without TRIGLYCERIDES, HDL) behavioral d isturbance Hyperlipidemia, unspecified hyperlipidemia type Hyperglycemia THYROID STIMULATING LAB Routine Benign hyper tension 10/31/2019 8:27 AM HORMONE Presenile dementia with CDT depression without behavioral distu rbance Hyperlipidemia, unspecified hyperlipidemia type Hyperglycemia FREE T4 LAB Routine Benign hypertens ion 10/31/2019 8:27 AM Presenile dementia with CDT depression without behavioral distu rbance Hyperlipidemia, unspecified hyperlipidemia type Hyperglycemia T3 [place] LAB Routine Benign hypertens ion 10/31/2019 8:27 AM Presenile dementia with CDT depression without behavioral distu rbance Hyperlipidemia, unspecified hyperlipidemia type Hyperglycemia Name Type Priority Associated Diagnoses Order S chedule COMP. METABOLIC PANEL LAB Routine Benign hyp ertension Expected: ([id number]) Presenile dementia with 10/15, Expires: depression without 1 behavioral distu rbance Hyperlipidemia, unspecified hyperlipidemia t ype Hyperglycemia LIPID PANEL LAB Routine Benign hypertens ion Expected: ([id number])(TOTAL Presenile dementia with , Expires: CHOLESTEROL, depression without 1 TRIGLYCERIDES, HDL) behavioral d isturbance Hyperlipidemia, unspecified hyperlipidemia t ype Hyperglycemia THYROID STIMULATING LAB Routine Benign hyper tension Expected: HORMONE Presenile dementia with 10/15, Expires: depression without 1 behavioral distu rbance Hyperlipidemia, unspecified hyperlipidemia t ype Hyperglycemia FREE T4 LAB Routine Benign hypertens ion Expected: Presenile dementia with 10/15, Expires: depression without 1 behavioral distu rbance Hyperlipidemia, unspecified hyperlipidemia t ype Hyperglycemia T3 [place] LAB Routine Benign hypertens ion Expected: Presenile dementia with 10/15, Expires: depression without 1 behavioral distu rbance Hyperlipidemia, unspecified hyperlipidemia t ype Hyperglycemia Health Maintenance Due Date Last Done Comments [...] Name Priority Date/Time Associated Diagnosis Comme nts CBC WITH Routine 10/31/2019 8:27 Benign hyperten tracey Results for this DIFFERENTIAL AM CDT Presenile dementia procedure are in with depression the results without behavioral section. disturbance Hyperlipidemia, unspecified hyperlipidemia t ype Hyperglycemia URINALYSIS Routine 10/31/2019 8:27 Benign hyperten tracey Results for this AM CDT Presenile dementia procedure are in with depression the results without behavioral section. disturbance Hyperlipidemia, unspecified hyperlipidemia t ype Hyperglycemia CBC WITH Routine 10/31/2019 8:27 Benign hyperten tracey Results for this DIFFERENTIAL AM CDT Presenile dementia procedure are in with depression the results without behavioral section. disturbance Hyperlipidemia, unspecified hyperlipidemia t ype Hyperglycemia documented in this encounter Results CBC WITH DIFFERENTIAL (10/31/2019 8:27 AM CDT) Pathologist Sig nature WBC 6.06 4.30 - 11.10 [facility] 10*3/L [facility] RBC 4.07 3.93 - 5.25 [facility] 10*6/L [facility] HGB 11.3 (L) 11.6 - 15.0 [facility] g/dL H[facility]PITAL [facility] HCT 34.4 (L) 35.7 - 45.2 % [facility] MCV 84.5 80.6 - 95.5 fL [facility] MCH 27.8 25.9 - 32.8 pg [facility] MCHC 32.8 31.6 - 35.1 [facility] g/dL [facility] RDW-SD 43.9 39.0 - 49.9 fL [facility] RDW-CV 14.2 12.0 - 15.5 % [facility] PLT 203 166 - 358 [facility] 10*3/L [facility] MPV 10.8 9.5 - 12.9 fL [facility] NRBC/100 WBC 0.0 0.0 - 10.0 /100 [facility] WBCs [facility] NRBC x10^3 <0.01 10*3/L [facility] GRAN MAT (NEUT) % 64.5 % [facility] IMM GRAN % 0.30 % [facility] LYMPH % 22.9 % [facility] MONO % 10.1 % [facility] EOS % 1.7 % [facility] BASO % 0.5 % [facility] GRAN MAT x10^3(ANC) 3.91 1.88 - 7.09 [facility] 10*3/uL [facility]PITAL [facility] IMM GRAN x10^3 <0.03 0.00 - 0.06 [facility] 10*3/uL [facility] LYMPH x10^3 1.39 1.32 - 3.29 [facility] 10*3/uL [facility] MONO x10^3 0.61 0.33 - 0.92 [facility] 10*3/uL H[facility]ITAL [facility] EOS x10^3 0.10 0.03 - 0.39 [facility] 10*3/uL [facility] BASO x10^3 0.03 0.01 - 0.07 [facility] 10*3/uL H[facility]ITAL [facility] Specimen Blood Performing Organization Address [facility] Phone Number [facility] CLIA: [id number], [address] [place], [place] [address] URINALYSIS (10/31/2019 8:27 AM CDT) APPEARANCE Hazy (A) Clear [facility] COLOR Yellow Yellow [facility] PH 5.0 4.8 - 8.0 [facility] SP GRAVITY 1.016 1.003 - 1.030 [facility] GLU U QUAL Normal Normal [facility] BLOOD NegativeComment: Negative [facility] INTERFERENCE FROM HOSPITAL LABORATORY ASCORBIC ACID MAY CAUSE FALSE NEGATIVE RESULT KETONES Negative Negative [facility] PROTEIN Negative Negative [facility] UROBILIN Normal Normal [facility] BILIRUBIN Negative Negative [facility] NITRITE Negative Negative [facility] LEUK JORGE L 25/uL (A) Negative [facility] RBC/HPF 2 0 - 3 HPF [facility] WBC/HPF 2 0 - 5 HPF [facility] BACTERIA Moderate (A) Negative [facility] SQ EPITH 1 HPF [facility] Specimen Urine - URINE, CLEAN CATCH Performing Organization Address City/[facility] Hospital[facility] Phone Number [facility] CLIA: [id number], [address] [place], [place] [address] documented in this encounter Visit Diagnoses Diagnosis Benign hypertension - Primary Essential hypertension, benign 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 Medicare & B t 82 [id number] [place] [id number] AETNA AETNA INDEMNITY [id number] 2013-Oral [place] t documented as of this encounter
--- NOTE | 2019-11-25 19:22 | RAD REPORT ---
EXAM DESCRIPTION: Connie Preston And Osmany (2 Views)11/25/2019 6:50 pm CLINICAL HISTORY: Cough COMPARISON: October 2018 FINDINGS: 6 millimeter rectangular density overlies the right upper lobe. Small nodular densities bilaterally within lungs unchanged. Some are calcified indicative of granulom atous The heart is borderline enlarged IMPRESSION: A 6 millimeter rectangular density overlies the right upper lobe. It may represent bone island or a pulmonary nodule. It may be calcified which may indicate granuloma. It is recommended kar t patient have a followup chest film in 6 weeks for re-evaluation
[2019-11-25] MEDS ORDERED: IPRATROPIUM BROM 0.5MG/2.5ML ONE (19:49)
[2019-11-25] MEDS ORDERED: ALBUTEROL 2.5 MG/3 ML NEB SOL ONE (19:50)
[2019-11-25] MEDS ORDERED: LEVALBUTEROL 1.25 MG/3 ML NEB ONE (19:51)
--- NOTE | 2019-11-25 20:35 | ER ---
Nurse's Notes [facility] Name: Veronica Hannah Age: 69 yrs Sex: Female : 1950 Arrival Date: 11/25/2019 Time: 17:13 Bed 30 Private MD: Diagnosis: Cough Presentation: 11/24 17:32 Chief complaint: Patient states: Cough x 2-3 days. Today, coughing a lot more, did ca1 breathing treatment at home and was short of breath. Pt reports history of Asthma. Reports diarrhea started today. Denies fever. Coronavirus screen: Patient reports a cough. Patient reports shortness of breath or difficulty breathing. Patient denies measured and/or subjective temperature greater than 100.4F prior to today's visit. Patient denies travel on a cruise ship or to a country the [facility] currently lists as an affected area. Patient denies contact with known and/or suspected case of COVID-19. Ebola Screen: Patient negative for fever greater than or equal to 101.5 degrees Fahrenheit, and additional compatible Ebola Virus Disease symptoms Patient denies exposure to infectious person. Patient denies travel to an Ebola-affected area in the 21 days before illness onset. No symptoms or risks identified at this time. Initial Sepsis Screen: Does the patient meet any 2 criteria? No. Patient's initial sepsis screen is negative. Does the patient have a suspected source of infection? No. Patient's initial sepsis screen is negative. Risk Assessment: Do you want to hurt yourself or someone else? Patient reports no desire to harm self or others. Onset of symptoms was November 25, 2019. 17:32 Method Of Arrival: Wheelchair ca1 17:32 Acuity: BALJIT 3 ca1 Historical: - Allergies: 17:35 No Known Allergies; ca1 - PMHx: 17:35 Asthma; breast cancer; Cerebral Palsy; Hypertension; Hypothyroidism; ca1 - PSHx: 17:35 [place] mastectomy; ca1 - Immunization history:: Adult Immunizations up to date. - Social history:: Smoking status: Patient denies any tobacco usage or history of. Screenin:46 Abuse screen: Denies threats or abuse. Nutritional screening: No deficits noted. ll1 Tuberculosis screening: No symptoms or risk factors identified. Fall Risk None identified. Total Rob[place]o Fall Scale indicates No Risk (0-24 pts). Assessment: 19:50 General: Appears in no apparent distress. Behavior is calm, cooperative. Pain: Denies ll1 pain. Respiratory: Reports shortness of breath on exertion cough that is non-productive, Airway is patent Trachea midline Respiratory effort is even, unlabored, Respiratory pattern is regular, symmetrical, Breath sounds with wheezes bilaterally. mild wheezing the patient has mild shortness of breath. GI: Abdomen is flat, Bowel sounds present X 4 quads. Abd is soft and non tender X 4 quads. Reports diarrhea. 20:45 Reassessment: Patient and/or family updated on plan of care and expected duration. Pain ll1 level reassessed. Patient is alert, oriented x 3, equal unlabored respirations, skin warm/dry/pink. Patient states feeling better. Vital Signs: 17:32 BP 161 / 69; Pulse 70; Resp 19 S; Temp 98(O); Pulse Ox 97% on R/A; Weight 63.5 kg (R); ca1 Height 4 ft. 11 in. (149.86 cm) (R); Pain 0/10; 19:55 BP 151 / 74; Pulse 64; Resp 18; Pulse Ox 99% ; ll1 20:52 BP 116 / 46; Pulse 76; Resp 18; Pulse Ox 97% ; Pain 0/10; ll1 17:32 Body Mass Index 28.28 (63.50 kg, 149.86 cm) ca1 ED Course: 17:13 Patient arrived in ED. as 17:34 Triage completed. ca1 17:35 Arm band placed on right wrist. ca1 18:39 Ting Garibay FNP-C is PSYCHIATRICP. kb 18:39 Luis Phipps MD is Attending Physician. kb 18:49 Chest Pa And Lat (2 Views) XRAY In Process Unspecified. EDMS 19:53 Elmo Varghese, NICOLA is Primary Nurse. ll1 20:46 Patient has correct armband on for positive identification. Bed in low position. Call ll1 light in reach. Side rails up X 1. 20:46 No provider procedures requiring assistance completed. Patient did not have IV access ll1 during this emergency room visit. Administered Medications: 19:52 Drug: Xopenex (3) 1.25 mg Route: Inhalation; ll1 20:47 Follow up: Response: No adverse reaction; Wheezing diminished ll1 20:47 Follow up: Response: Wheezing diminished; RASS: Alert and Calm (0) ll1 19:53 Drug: AtroVENT Aerosol 0.5 mg Route: Inhalation; ll1 Outcome: 20:34 Discharge ordered by . caridad 20:54 Discharged to home ambulatory. ll1 20:54 Condition: stable 20:54 Discharge instructions given to patient, Instructed on discharge instructions, follow up and referral plans. Demonstrated understanding of instructions, follow-up care. 20:55 Patient left the ED. ll1 Signatures: Dispatcher [employer] EDMS Ting Garibay, EGG TESTER-C EGG TESTER-Odette Mariscal as Acob, Ashley, RN RN ca1 Elmo Varghese RN RN ll1 Corrections: (The following items were deleted from the chart) 20:47 20:45 General: Appears in no apparent distress. Behavior is calm, cooperative, ll1 ll1 20:47 20:45 Pain: Denies pain. ll1 ll1 20:47 20:45 Respiratory: Reports shortness of breath on exertion cough that is ll1 non-productive, Airway is patent Trachea midline Respiratory effort is even, unlabored, Respiratory pattern is regular, symmetrical, Breath sounds with wheezes bilaterally. mild wheezing the patient has mild shortness of breath ll1 20:47 20:45 GI: Abdomen is flat, Bowel sounds present X 4 quads. Abd is soft and non tender X ll1 4 quads. Reports diarrhea, ll1
--- NOTE | 2019-11-25 20:35 | EDPHYS ---
Physician Documentation [facility] Name: Veronica Hannah Age: 69 yrs Sex: Female : 1950 Arrival Date: 11/25/2019 Time: 17:13 Bed 30 Private MD: MARIO Physician Luis Phipps HPI: 11/24 21:02 This 69 yrs old Female presents to ER via Wheelchair with complaints of kb Shortness Of Breath, Diarrhea. 21:02 The patient or guardian reports cough, that is intermittent, described as moderate, kb difficulty breathing. Onset: The symptoms/episode began/occurred 3 day(s) ago. Severity of symptoms: At their worst the symptoms were mild, in the emergency department the symptoms are unchanged. Modifying factors: The symptoms are alleviated by nothing, the symptoms are aggravated by nothing. Associated signs and symptoms: Pertinent negatives: chest pain, diarrhea, ear ache, fever, nausea, rhinorrhea, sore throat, vomiting. The patient has experienced similar episodes in the past. The patient has not recently seen a physician. Pt reports she has had a cough for a couple of days, today it was worse and she kept having to take deep breaths to catch her breath. Reports history of asthma. Historical: - Allergies: 17:35 No Known Allergies; ca1 - PMHx: 17:35 Asthma; breast cancer; Cerebral Palsy; Hypertension; Hypothyroidism; ca1 - PSHx: 17:35 [place] mastectomy; ca1 - Immunization history:: Adult Immunizations up to date. - Social history:: Smoking status: Patient denies any tobacco usage or history of. ROS: 20:54 Constitutional: Negative for fever, chills, and weight loss, ENT: Negative for injury, kb pain, and discharge, Neck: Negative for injury, pain, and swelling, Cardiovascular: Negative for chest pain, palpitations, and edema, Abdomen/GI: Negative for abdominal pain, nausea, vomiting, diarrhea, and constipation, Back: Negative for injury and pain, MS/Extremity: Negative for injury and deformity, Skin: Negative for injury, rash, and discoloration, Neuro: Negative for headache, weakness, numbness, tingling, and seizure. 20:54 Respiratory: Positive for cough, shortness of breath, Negative for dyspnea on exertion, hemoptysis, orthopnea, pleurisy, sputum production, wheezing. Exam: 20:54 Constitutional: This is a well developed, well nourished patient who is awake, alert, kb and in no acute distress. Head/Face: Normocephalic, atraumatic. Neck: Trachea midline, no thyromegaly or masses palpated, and no cervical lymphadenopathy. Supple, full range of motion without nuchal rigidity, or vertebral point tenderness. No Meningismus. Chest/axilla: Normal chest wall appearance and motion. Nontender with no deformity. No lesions are appreciated. Cardiovascular: Regular rate and rhythm with a normal S1 and S2. No gallops, murmurs, or rubs. Normal PMI, no JVD. No pulse deficits. Respiratory: Lungs have equal breath sounds bilaterally, clear to auscultation and percussion. No rales, rhonchi or wheezes noted. No increased work of breathing, no retractions or nasal flaring. Abdomen/GI: Soft, non-tender, with normal bowel sounds. No distension or tympany. No guarding or rebound. No evidence of tenderness throughout. Skin: Warm, dry with normal turgor. Normal color with no rashes, no lesions, and no evidence of cellulitis. MS/ Extremity: Pulses equal, no cyanosis. Neurovascular intact. Full, normal range of motion. Neuro: Awake and alert, GCS 15, oriented to person, place, time, and situation. Cranial nerves II-XII grossly intact. Motor strength 5/5 in all extremities. Sensory grossly intact. Cerebellar exam normal. Normal gait. Vital Signs: 17:32 BP 161 / 69; Pulse 70; Resp 19 S; Temp 98(O); Pulse Ox 97% on R/A; Weight 63.5 kg (R); ca1 Height 4 ft. 11 in. (149.86 cm) (R); Pain 0/10; 19:55 BP 151 / 74; Pulse 64; Resp 18; Pulse Ox 99% ; ll1 20:52 BP 116 / 46; Pulse 76; Resp 18; Pulse Ox 97% ; Pain 0/10; ll1 17:32 Body Mass Index 28.28 (63.50 kg, 149.86 cm) ca1 MDM: 18:39 Patient medically screened. kb 20:45 Data reviewed: vital signs, nurses notes. Data interpreted: Pulse oximetry: on room air kb is 99 %. Interpretation: normal. 20:53 Counseling: I had a detailed discussion with the patient and/or guardian regarding: the kb historical points, exam findings, and any diagnostic results supporting the discharge/admit diagnosis, radiology results, the need for outpatient follow up, a family practitioner, to return to the emergency department if symptoms worsen or persist or if there are any questions or concerns that arise at home. 21:03 ED course: Symptoms resolved after treatment. kb 11/24 18:39 Order name: Chest Pa And Lat (2 Views) XRAY; Complete Time: 19:27 kb Administered Medications: 19:52 Drug: Xopenex (3) 1.25 mg Route: Inhalation; ll1 20:47 Follow up: Response: No adverse reaction; Wheezing diminished ll1 20:47 Follow up: Response: Wheezing diminished; RASS: Alert and Calm (0) ll1 19:53 Drug: AtroVENT Aerosol 0.5 mg Route: Inhalation; ll1 Disposition: 11/25/19 20:34 Discharged to Home. Impression: Cough. - Condition is Stable. - Discharge Instructions: Asthma, Adult, [id number], Cough, Adult, [id number]. - Medication Reconciliation Form, Thank You Letter, Antibiotic Education, Prescription Opioid Use form. - Follow up: Emergency Department; When: As needed; Reason: Worsening of condition. Follow up: Private Physician; When: 2 - 3 days; Reason: Recheck today's complaints, Continuance of care, Re-evaluation by your physician. Addendum: 11/27/2019 09:29 Co-signature as Attending Physician, Luis Phipps MD I agree with the assessment and c jaramillo plan of care. Signatures: Dispatcher [employer] EDIN Ting Garibay, OCTAVIO-C INCIDENT RESPONSE ENGINEER-Luis Humphries MD MD cha Acob, Cheryl, Elmo Greene RN, RN RN ll1 Corrections: (The following items were deleted from the chart) 11/24 20:55 20:34 11/25/2019 20:34 Discharged to Home. Impression: Cough. Condition is Stable. ll1 Forms are Medication Reconciliation Form, Thank You Letter, Antibiotic Education, Prescription Opioid Use. Follow up: Emergency Department; When: As needed; Reason: Worsening of condition. Follow up: Private Physician; When: 2 - 3 days; Reason: Recheck today's complaints, Continuance of care, Re-evaluation by your physician. kb
[2019-11-25 21:00] VITALS: TEMP 98
[2019-11-25 21:04] VITALS: BP 116/46; O2SAT 97
== END 2019-11-25 20:55 | disposition home or self-care (01) ==
LOC: ER 17:09
DX: R05 Cough (principal); I10 Essential (primary) hypertension; J45.909 Unspecified asthma, uncomplicated; Z85.3 Personal history of malignant neoplasm of breast; Z90.13 Acquired absence of bilateral breasts and nipples
CPT/HCPCS: 71046; 99284

== ENCOUNTER 2020-11-03 09:19 | Emergency (ER) | payer OTHER ==
--- OUTSIDE RECORDS SUMMARY | 2020-11-03 09:22 | XMS REPORT | Continuity of Care Document ---
:1950 Author Organization [facility] t Address [address] [place] [address] Care Team Providers Name Role Phone Deepak KIMBLE Primary Care Physician Phyllis KENDRICK, L Attending Clinician Problems Condition Condition Condition Status Onset Resolution Last Treating Co mments Source Name Details Category Date Date Treatment Clinician Date Bronchitis Bronchitis Disease Active [place] [facility]- [facility] 00:00: st 00 Allergies, Adverse Reactions, Alerts This patient has no known allergies or adverse reactions. Family History Family Member Diagnosis Comments Start Date Stop Date Source Natural brother Alcohol abuse [place] [facility] Natural brother Mental illness [place] [facility] Natural father Heart disease [place] [facility] Natural father Hypertension [place] [facility] Natural mother Hypertension [place] [facility] Natural sister Alcohol abuse [place] [facility] Natural sister Mental illness [place] [facility] Social History Social Habit Start Date Stop Date Quantity Comments Source Tobacco use and 2017-09-11 2017-09-[address] [facility] ethodist exposure 00:00:00 00:00:00 Alcohol intake 2017-09-11 2017-09-11 Current [facility] thodist 00:00:00 00:00:00 non-drinker of alcohol (finding) Sex Assigned At [address] 1950 [facility] ethodist 00:00:00 00:00:00 Smoking Status Start Date Stop Date Source Never smoker [place] [facility] t Medications Ordered Filled Start Stop Current Ordering Indication Dosage Frequency Signature Comments Components Source Medication Medication Date Date Medication? Clinician (SIG) Name Name atorvastati 2018- Yes 40mg QD Take 40 mg [place] n (LIPITOR) 2-21 by mouth Meth ron 40 MG 14:48: daily. st tablet 51 FLUoxetine 2017-0 Yes 40mg QD Take 40 mg [place] (PROzac) 40 2-21 by mouth Meth ron MG capsule 14:48: daily. st 51 hydroCHLORO 2018-0 Yes 25mg QD Take 25 mg [place] thiazide 2-21 by mouth [facility]i (HYDRODIURI 14:48: daily. st L) 25 MG 51 tablet losartan [id number] Yes 100mg QD Take 100 [place] (COZAAR) 2-21 mg by [facility] 100 MG 14:48: mouth st tablet 51 daily. amLODIPine 2018 Yes 10mg QD Take 10 mg [place] (NORVASC) 2-21 by mouth Method i 10 mg 14:48: daily. st tablet 51 hydrALAZINE Yes 50mg [id number] Take 50 mg [place] (APRESOLINE 2-21 [id number] by mouth 3 [facility] ) 50 MG 14:48: 3D (three) st tablet 51 times a day. Procedures This patient has no known procedures. Plan of Care Planned Activity Planned Date Details Comments Source Future Scheduled 2021-02-14 INFLUENZA VACCINE [facility] [facility] Test 00:00:00 [code = INFLUENZA VACCINE] Future Scheduled 2015 65+ PNEUMOCOCCAL [facility] [facility] Test 00:00:00 VACCINE (1 of 1 - PPSV23) [code = 65+ PNEUMOCOCCAL VACCINE (1 of 1 - PPSV23)] Future Scheduled 2000 [facility] SCREENING [code = BREAST CANCER SCREENING] Future Scheduled 2000 COLONOSCOPY SCREENING [facility] [place] [facility] Test 00:00:00 [code = COLONOSCOPY SCREENING] Future Scheduled 2000 SHINGLES VACCINES (#1) [place] [facility] Test 00:00:00 [code = SHINGLES VACCINES (#1)] Future Scheduled 1966 COVID-19 VACCINE (1) Laura ulrich [facility] Test 00:00:00 [code = COVID-19 VACCINE (1)] Encounters Start End Encounter Admission Attending Care Care Encounter Source Date/Time Date/Time Type Type Clinicians Facility Department ID 2020-02-28 2020-02-[address] [facility] [id number] 00:00:00 00:00:00 Chandrakant Parker [id number] Surgical [id number] Specialti [id number] [address] 2020-02-27 2020-02-27 [facility] [id number] 08:32:08 23:59:00 Encounter Chandrakant Parker [id number] Surgical [id number] Specialti [id number] es [address] 2020-02-27 2020-02-[address] [facility] [id number] 08:10:32 08:49:41 Visit Chandrakant Parker [id number] Surgical [id number] Specialti [id number] [address] Results This patient has no known results.
--- NOTE | 2020-11-03 11:42 | ER ---
Nurse's Notes [facility] Name: Veronica Hannah Age: 70 yrs Sex: Female : 1950 Arrival Date: 11/03/2020 Time: 09:21 Bed Waiting Private MD: Diagnosis: Presentation: 11/03 10:35 Chief complaint: Patient states: "It's my asthma." Pt reports cough and shortness of ss breath on exertion that began 2-3 weeks ago. Denies fever. Coronavirus screen: Client denies travel out of the [place] in the last 14 days. cough unrelated to allergies, difficulty breathing. Ebola Screen: Patient denies exposure to infectious person. Patient denies travel to an Ebola-affected area in the 21 days before illness onset. Initial Sepsis Screen: Does the patient meet any 2 criteria? No. Patient's initial sepsis screen is negative. Does the patient have a suspected source of infection? No. Patient's initial sepsis screen is negative. Risk Assessment: Do you want to hurt yourself or someone else? Patient reports no desire to harm self or others. Onset of symptoms is unknown. 10:35 Method Of Arrival: Ambulatory ss 10:35 Acuity: BALJIT 4 ss Historical: - Allergies: 10:37 No Known Allergies; ss - PMHx: 10:37 Asthma; Cerebral Palsy; breast cancer; Hypertension; Hypothyroidism; ss - PSHx: 10:37 [place] mastectomy; ss - Immunization history:: Adult Immunizations unknown. - Social history:: Smoking status: Patient denies any tobacco usage or history of. Vital Signs: 10:35 BP 108 / 52; Pulse 71; Resp 16; Temp 97.2(TE); Pulse Ox 99% on R/A; Pain 0/10; ss ED Course: 09:21 Patient arrived in ED. ds1 10:37 Triage completed. ss 10:37 Arm band placed on right wrist. ss 10:46 Jefferson Felipe PA is PHCP. m 10:46 Porter Sahni MD is Attending Physician. jmm 11:40 No provider procedures requiring assistance completed. Patient did not have IV access ss during this emergency room visit. Administered Medications: No medications were administered Outcome: 11:40 Eloped from waiting room, after seeing physician ss 11:42 Patient left the ED. ss Signatures: Jefferson Felipe PA PA jmm Sanford, Demi ds1 Rosa Bates, NICOLA RN ss
--- NOTE | 2020-11-03 11:42 | EDPHYS ---
Physician Documentation [facility] Name: Veronica Hannah Age: 70 yrs Sex: Female : 1950 Arrival Date: 11/03/2020 Time: 09:21 Bed Waiting Private MD: ED Physician Porter Sahni HPI: 11/03 10:48 This 70 yrs old Female presents to ER via Ambulatory with complaints of jmm Asthma Exacerbation, Cough. 10:48 Onset: The symptoms/episode began/occurred gradually, 3 day(s) ago. Modifying factors: jmm The symptoms are alleviated by nothing, the symptoms are aggravated by nothing. Associated signs and symptoms: Pertinent negatives: fever. This is a 70 year old female with a history of asthma,cp, breast cancer, htn that presents to the ED with complaints of ongoing cough, shortness of breath beginning approx 3 day ago. Denies fever. Patient attributes this to her asthma. . Historical: - Allergies: 10:37 No Known Allergies; ss - PMHx: 10:37 Asthma; Cerebral Palsy; breast cancer; Hypertension; Hypothyroidism; ss - PSHx: 10:37 [place] mastectomy; ss - Immunization history:: Adult Immunizations unknown. - Social history:: Smoking status: Patient denies any tobacco usage or history of. ROS: 10:48 Constitutional: Negative for fever, chills, and weight loss, Cardiovascular: Negative jmm for chest pain, palpitations, and edema. 10:48 Respiratory: Positive for cough, shortness of breath. 10:48 All other systems are negative. Exam: 10:48 Constitutional: This is a well developed, well nourished patient who is awake, alert, jmm and in no acute distress. Head/Face: atraumatic. Eyes: EOMI, no conjunctival erythema appreciated ENT: Moist Mucus Membranes Neck: Trachea midline, Supple Chest/axilla: Normal chest wall appearance and motion. Cardiovascular: Regular rate and rhythm. No edema appreciated Respiratory: Normal respirations, no respiratory distress appreciated Abdomen/GI: Non distended, soft Back: Normal ROM Skin: General appearance color normal MS/ Extremity: Moves all extremities, no obvious deformities appreciated, no edema noted to the lower extremities Neuro: Awake and alert, normal gait Psych: Behavior is normal, Mood is normal, Patient is cooperative and pleasant Vital Signs: 10:35 BP 108 / 52; Pulse 71; Resp 16; Temp 97.2(TE); Pulse Ox 99% on R/A; Pain 0/10; ss MDM: 11:05 Patient medically screened. [facility] Administered Medications: No medications were administered Disposition: 12:17 Co-signature as Attending Physician, Porter Sahni MD. rn Disposition: 11/03/20 11:42 Patient left the facility after being seen by provider. - Patient left due to unknown. - Condition is Stable. Signatures: Dispatcher [employer] [facility] Jefferson Felipe PA PA Porter Kaufman MD MD rn Rosa Bates RN RN ss Corrections: (The following items were deleted from the chart) 11:26 10:48 Chest Single View+RAD.RAD.BRZ ordered. [facility] 11:42 11:42 11/03/2020 11:42 Patient left the facility after being seen by provider. Reason ss stated they are leaving due to unknown. Condition is Stable. ss
[2020-11-03 11:46] VITALS: BP 108/52; TEMP 97.2; O2SAT 99
== END 2020-11-03 11:42 | disposition left against medical advice (07) ==
LOC: ER 09:19
DX: R05 Cough (principal); J45.909 Unspecified asthma, uncomplicated; I10 Essential (primary) hypertension; Z85.3 Personal history of malignant neoplasm of breast; Z90.13 Acquired absence of bilateral breasts and nipples
CPT/HCPCS: 99281

== ENCOUNTER 2021-03-31 16:45 | Inpatient (IN) | payer OTHER ==
[2021-03-31 17:42] LABS: Protime INR 1.13
[2021-03-31 17:43] LABS: Absolute Lymphocytes (CBC) 0.9 K/uL (0.7-4.9); Basophils % 0.2 % (0-1.3); Hematocrit 33.2 % (36.0-45.0); Lymphocytes % 6.5 % (15.3-44.8); MPV 8.8 fL (7.6-11.3); RBC Red Blood Cell Count 3.88 M/uL (3.86-4.86)
[2021-03-31 17:54] LABS: Barbiturates NEGATIVE (NEGATIVE); Benzodiazepines NEGATIVE (NEGATIVE); Cocaine NEGATIVE (NEGATIVE); METHAMPHETAM NEGATIVE (NEGATIVE); Methadone NEGATIVE (NEGATIVE); Opiates NEGATIVE (NEGATIVE); Phencyclidine POSITIVE (NEGATIVE); THC Cannibis NEGATIVE (NEGATIVE)
[2021-03-31 18:02] LABS: Albumin 3.4 g/dL (3.4-5.0); Bilirubin Direct 0.2 mg/dL (0-0.2); Bilirubin Total 0.6 mg/dL (0.2-1.0); Magnesium 1.6 mg/dL (1.8-2.4); Protein, Total 6.3 g/dL (6.4-8.2); Troponin I 0.02 ng/mL (0.0-0.045)
[2021-03-31 18:07] LABS: Potassium 2.8 mmol/L (3.5-5.1)
--- NOTE | 2021-03-31 18:22 | ER ---
Nurse's Notes [facility] Name: Veronica Hannah Age: 71 yrs Sex: Female : 1950 Arrival Date: 03/31/2021 Time: 16:45 Bed 8 Private MD: Diagnosis: Other seizures;Hypomagnesemia;Hypokalemia;Dehydration Presentation: 03/31 16:50 Chief complaint: EMS states: reports sudden AMS followed by seizure activity hb lasting aoprox 40 seconds. Hematoma noted to right side of head. AOx1. 16:50 Coronavirus screen: At this time, the client does not indicate any symptoms associated hb with coronavirus-19. Ebola Screen: No symptoms or risks identified at this time. Initial Sepsis Screen: Does the patient meet any 2 criteria? No. Patient's initial sepsis screen is negative. Does the patient have a suspected source of infection? No. Patient's initial sepsis screen is negative. Onset of symptoms was March 31, 2021 at 15:00. 16:50 Method Of Arrival: EMS: [facility] hb 16:52 Acuity: BALJIT 2 ap3 16:52 Risk Assessment: Do you want to hurt yourself or someone else? Patient reports no ap3 desire to harm self or others. Triage Assessment: 18:04 Pain: Denies pain. ap3 Historical: - Allergies: 18:54 No Known Drug Allergies; hb - Home Meds: 18:54 amlodipine oral [Active]; atorvastatin Oral [Active]; benzonatate 200 mg Oral cap 1 cap hb 3 times per day [Active]; Diovan Oral [Active]; fluoxetine 40 mg Oral cap 1 cap once daily [Active]; hydrochlorothiazide 25 mg Oral tab 1 tab once daily [Active]; levothyroxine oral [Active]; losartan 100 mg Oral tab 1 tab once daily [Active]; Prozac Oral [Active]; - PMHx: 16:50 Asthma; breast cancer; Cerebral Palsy; Hypertension; Hypothyroidism; ss - Immunization history:: Adult Immunizations up to date. - Social history:: Smoking status: Patient denies any tobacco usage or history of. Screenin:51 Abuse screen: Denies threats or abuse. Nutritional screening: No deficits noted. ap3 Tuberculosis screening: No symptoms or risk factors identified. Fall Risk Fall in past 12 months (25 points). Secondary diagnosis (15 points) seizures, IV access (20 points). Ambulatory Aid- None/Bed Rest/Nurse Assist (0 pts). Gait- Impaired (20 pts.). Mental Status- Overestimates/Forgets Limitations (15 pts.). Total Robledo Fall Scale indicates High Risk Score (45 or more points). Fall prevention measures have been instituted. Side Rails Up X 2 Placed Close to Nursing Station Frequent Obs/Assessments Occuring As available patient and family educated on Fall Prevention Program and Strategies. Assessment: 16:43 Reassessment: CODE STROKE CALLED, PT TO CT VIA STRETCHER WITH MARITZA PETERSEN, LAMIN PANTOJA, AND santo PEREZ RN. 16:52 General: Appears in no apparent distress. comfortable, Behavior is cooperative. Neuro: ap3 Level of Consciousness is awake, obeys commands, confused, Oriented to person, Speech is slurred. Cardiovascular: Patient's skin is warm and dry. Respiratory: Airway is patent Respiratory effort is even, unlabored, Respiratory pattern is regular, symmetrical. 17:26 Reassessment: Patient appears in no apparent distress at this time. Patient and/or family updated on plan of care and expected duration. Pain level reassessed. 17:56 Reassessment: No changes from previously documented assessment. Patient and/or family ap3 updated on plan of care and expected duration. Pain level reassessed. 18:55 Reassessment: Patient appears in no apparent distress at this time. No changes from previously documented assessment. Patient and/or family updated on plan of care and expected duration. Pain level reassessed. 19:17 Reassessment: Patient and/or family updated on plan of care and expected duration. Pain ea level reassessed. Patient is alert, oriented x 3, equal unlabored respirations, skin warm/dry/pink. 21:34 Reassessment: Patient and/or family updated on plan of care and expected duration. Pain ea level reassessed. Patient is alert, oriented x 3, equal unlabored respirations, skin warm/dry/pink. 22:19 Reassessment: Patient and/or family updated on plan of care and expected duration. Pain ea level reassessed. Patient is alert, oriented x 3, equal unlabored respirations, skin warm/dry/pink. Report called to receiving nurse on second. Pt left ED via stretcher per tech, pt tolerating well. Vital Signs: 16:50 BP 105 / 54; Pulse 101; Resp 19; Pulse Ox 97% on R/A; ap3 17:56 BP 111 / 78; Pulse 98; Resp 22; Pulse Ox 98% on R/A; ap3 18:55 BP 104 / 77; Pulse 90; Resp 17; Pulse Ox 99% on R/A; hb 19:17 BP 115 / 59; Pulse 93; Resp 16; Pulse Ox 97% ; ea 20:21 Temp 98.5; ea 21:34 BP 108 / 57; Pulse 85; Resp 18; Pulse Ox 98% ; ea 22:21 BP 105 / 52; Pulse 82; Resp 20; Temp 98.4; Pulse Ox 99% ; ea NIH Stroke Scale Scores: 18:10 NIHSS Score: 1 jr8 ED Course: 16:45 Patient arrived in ED. ds1 16:50 Porter Sahni MD is Attending Physician. rn 16:50 Blu [place] PA is PHCP. rn 16:52 Triage completed. ap3 16:52 Patient has correct armband on for positive identification. Bed in low position. Call ap3 light in reach. Side rails up X2. library monitor on. Pulse ox on. NIBP on. 17:13 Pt visited by significant other. ap3 17:13 Seizure precautions initiated. ap3 17:23 Maritza Masters, RN is Primary Nurse. hb 17:26 Arm band placed on. hb 18:21 Dimitri Carias DO is Hospitalizing Provider. jr8 18:26 CT Head Brain wo Cont In Process Unspecified. EDMS 18:28 Inserted saline lock: 20 gauge in right antecubital area, using aseptic technique. ap3 19:14 Primary Nurse role handed off by Maritza Masters, RN mw2 20:07 Michelle Rodriguez, NICOLA is Primary Nurse. ea 21:34 No provider procedures requiring assistance completed. Patient admitted, IV remains in ea place. Administered Medications: 18:28 Drug: Magnesium Sulfate 2 grams Route: IVPB; Infused Over: 2 hrs; Site: right ap3 antecubital; 21:00 Follow up: IV Status: Completed infusion ea 18:28 Drug: NS 0.9% with KCl 20 mEq/L 1000 ml Route: IV; Rate: 500 ml/hr; Site: right ap3 antecubital; 21:00 Follow up: Response: No adverse reaction; IV Status: Completed infusion; IV Intake: ea 1000ml Intake: 21:00 IV: 1000ml; Total: 1000ml. ea Outcome: 18:22 Decision to Hospitalize by Provider. nabeel 21:34 Condition: stable ea 21:34 Instructed on the need for admit, Demonstrated understanding of instructions. 22:19 Admitted to Med/surg accompanied by tech, via stretcher, with chart, Report called to ea Receiving nurse on second 22:20 Patient left the ED. ea NIH Stroke Scale - NIH Stroke Score Date: 03/31/2021 Time: 18:10 Total Score = 1 1a. Level of Consciousness (LOC) - 0(Alert) 1b. Level of Consciousness (LOC) (Month \T\ Age) - 0(Both) 1c. LOC Commands (Open \T\ Closes Eyes/Pilot Supervisor) - 0(Both) 2. Best Gaze (Lateral Gaze Paresis) - 0(Normal) 3. Visual Field Loss - 0(No visual loss) 4. Facial Palsy - 0(Normal) 5a. Left Arm: Motor (10-second hold) - 0(No drift) 5b. Right Arm: Motor (10-second hold) - 0(No drift) 6a. Left Leg: Motor (5-second hold - always test supine) - 0(No drift) 6b. Right Leg: Motor (5-second hold - always test supine) - 0(No drift) 7. Limb Ataxia (finger/nose \T\ heel/phillips - test with eyes open) - 0(Absent) 8. Sensory Loss (pinprick arms/legs/face) - 0(Normal) 9. Best Language: Aphasia (description/naming/reading) - 0(No aphasia) 10. Dysarthria (speech clarity - read or repeat words) - 1(Mild to Moderate) 11. Extinction and Inattention (visual/tactile/auditory/spatial/personal) - 0(No abnormality) Initials: nabeel Signatures: Dispatcher [facility] Caprice Grady ds1 Porter Sahni MD MD rn Smirch, Shelby, RN RN ss Roszak, Josh, PA PA jr8 Maritza Masters RN RN hb Antunez, Elena RN Fabienne Mendez ea RN NICOLA ap3 [place] mw2 Corrections: (The following items were deleted from the chart) 17:57 17:56 BP 111 / 78; Pulse 98bpm; Resp 22bpm; Pulse Ox 98% 2 lpm Nasal Cannula; ap3 ap3
--- NOTE | 2021-03-31 18:23 | EDPHYS ---
Physician Documentation [facility] Name: Veronica Hannah Age: 71 yrs Sex: Female : 1950 Arrival Date: 03/31/2021 Time: 16:45 Bed 8 Private MD: ED Physician Porter Sahni HPI: 03/31 18:10 This 71 yrs old Female presents to ER via EMS with complaints of Seizure. jr8 18:10 Onset: The symptoms/episode began/occurred acutely, today. Patient's baseline: Neuro: jr8 alert and fully oriented, Motor: no deficits, Ambulation: walks without assistance, Speech: normal. The patient has not experienced similar symptoms in the past. The patient has not recently seen a physician. This is a 71-year-old female that was brought to the emergency room via EMS. EMS stated that family had called for initially strokelike symptoms. of patient stated that patient started to have slurred speech and was unable to walk very well. A second episode shortly after occurred in which patient had fallen to the floor and tensed up along with having urinary incontinence. EMS called at that time for further evaluation. EMS stated that she appeared to be in a postictal state. Patient alert to person place upon arrival but does not recall incidents.. Historical: - Allergies: 18:54 No Known Drug Allergies; hb - Home Meds: 18:54 amlodipine oral [Active]; atorvastatin Oral [Active]; benzonatate 200 mg Oral cap 1 cap hb 3 times per day [Active]; Diovan Oral [Active]; fluoxetine 40 mg Oral cap 1 cap once daily [Active]; hydrochlorothiazide 25 mg Oral tab 1 tab once daily [Active]; levothyroxine oral [Active]; losartan 100 mg Oral tab 1 tab once daily [Active]; Prozac Oral [Active]; - PMHx: 16:50 Asthma; breast cancer; Cerebral Palsy; Hypertension; Hypothyroidism; ss - Immunization history:: Adult Immunizations up to date. - Social history:: Smoking status: Patient denies any tobacco usage or history of. ROS: 18:10 Eyes: Negative for injury, pain, redness, and discharge, ENT: Negative for injury, jr8 pain, and discharge, Neck: Negative for injury, pain, and swelling, Cardiovascular: Negative for chest pain, palpitations, and edema, Respiratory: Negative for shortness of breath, cough, wheezing, and pleuritic chest pain, Abdomen/GI: Negative for abdominal pain, nausea, vomiting, diarrhea, and constipation, Back: Negative for injury and pain, MS/Extremity: Negative for injury and deformity, Skin: Negative for injury, rash, and discoloration. 18:10 Neuro: Positive for seizure activity, speech changes. Exam: 18:10 Radiologist reports: No acute bleed or ischemia noted. Stable chronic changes otherwise jr8 18:10 Eyes: Pupils equal round and reactive to light, extra-ocular motions intact. Lids and lashes normal. Conjunctiva and sclera are non-icteric and not injected. Cornea within normal limits. Periorbital areas with no swelling, redness, or edema. ENT: Nares patent. No nasal discharge, no septal abnormalities noted. Tympanic membranes are normal and external auditory canals are clear. Oropharynx with no redness, swelling, or masses, exudates, or evidence of obstruction, uvula midline. Mucous membranes moist. Neck: Trachea midline, no thyromegaly or masses palpated, and no cervical lymphadenopathy. Supple, full range of motion without nuchal rigidity, or vertebral point tenderness. No Meningismus. Chest/axilla: Normal chest wall appearance and motion. Nontender with no deformity. No lesions are appreciated. Cardiovascular: Regular rate and rhythm with a normal S1 and S2. No gallops, murmurs, or rubs. Normal PMI, no JVD. No pulse deficits. Respiratory: Lungs have equal breath sounds bilaterally, clear to auscultation and percussion. No rales, rhonchi or wheezes noted. No increased work of breathing, no retractions or nasal flaring. Abdomen/GI: Soft, non-tender, with normal bowel sounds. No distension or tympany. No guarding or rebound. No evidence of tenderness throughout. Back: No spinal tenderness. No costovertebral tenderness. Full range of motion. 18:10 MS/ Extremity: Pulses equal, no cyanosis. Neurovascular intact. Full, normal range of motion. 18:10 Head/face: Noted is hematoma, that is mild, of the right side of the back of head. 18:10 Skin: injury, abrasion(s), small abrasion noted, of the right leg. 18:10 Neuro: Orientation: to person, place, Mentation: is normal, Memory: immediate memory is intact, remote memory is intact. recent memory is impaired, Cranial nerves: CN I not tested, CN II- XII are normal as tested, visual cortes are intact. extraocular movements are intact, Facial palsy and sensory deficits are absent. Nystagmus is absent. Speech is slowed, Tongue strength is normal, Cerebellar function: normal finger to nose testing, heel to phillips testing is normal, Motor: moves all fours, strength is 5/5 in all extremities, Sensation: no obvious gross deficits, seizure activity, is not displayed by the patient, Abnormal movements: there are no abnormal movements. Vital Signs: 16:50 BP 105 / 54; Pulse 101; Resp 19; Pulse Ox 97% on R/A; ap3 17:56 BP 111 / 78; Pulse 98; Resp 22; Pulse Ox 98% on R/A; ap3 18:55 BP 104 / 77; Pulse 90; Resp 17; Pulse Ox 99% on R/A; hb 19:17 BP 115 / 59; Pulse 93; Resp 16; Pulse Ox 97% ; ea 20:21 Temp 98.5; ea 21:34 BP 108 / 57; Pulse 85; Resp 18; Pulse Ox 98% ; ea 22:21 BP 105 / 52; Pulse 82; Resp 20; Temp 98.4; Pulse Ox 99% ; ea NIH Stroke Scale Scores: 18:10 NIHSS Score: 1 jr8 MDM: 16:56 Patient medically screened. 8 18:10 Data reviewed: vital signs, nurses notes, lab test result(s), EKG, radiologic studies, [facility] CT scan, plain films. Data interpreted: Pulse oximetry: on room air is 98 %. Interpretation: normal. Counseling: I had a detailed discussion with the patient and/or guardian regarding: the historical points, exam findings, and any diagnostic results supporting the discharge/admit diagnosis, lab results. 18:19 Counseling: I had a detailed discussion with the patient and/or guardian regarding: jr8 radiology results, the need for further work-up and treatment in the hospital. ED course: Patient hemodynamically stable at this time. Has had rapid resolution of symptoms. No longer postictal but still cannot recall of what happened. Unsure at this point whether it was transient ischemia versus seizure like activity. Patient did have a positive PCP result on UDS. Patient would not be a candidate for TPA based on rapid resolution of symptoms and other possible neurologic events. Patient will be admitted for her electrolyte imbalance and further observation from her neurologic event today.. 03/31 17:36 Order name: Urine Drug Screen; Complete Time: 17:56 [facility] 03/31 17:37 Order name: Basic Metabolic Panel; Complete Time: 18:09 [facility] 03/31 17:37 Order name: Liver (Hepatic) Function; Complete Time: 18:09 [facility] 03/31 17:37 Order name: Troponin I; Complete Time: 18:09 [facility] 03/31 17:37 Order name: NT PRO-BNP; Complete Time: 18:09 [facility] 03/31 17:37 Order name: Magnesium; Complete Time: 18:09 [facility] 03/31 16:57 Order name: XRAY Chest (1 view) [facility] 03/31 16:57 Order name: EKG; Complete Time: 18:21 [facility] 03/31 16:57 Order name: Cardiac monitoring; Complete Time: 17:11 [facility] 03/31 16:57 Order name: EKG - Nurse/Tech; Complete Time: 18:28 [facility] 03/31 16:57 Order name: IV Saline Lock; Complete Time: 17:11 [facility] 03/31 16:57 Order name: CT Head Brain wo Cont [facility] 03/31 17:37 Order name: CBC with Automated Diff [facility] 03/31 17:37 Order name: Protime (+INR); Complete Time: 17:48 [facility] 03/31 19:05 Order name: Urine Microscopic Only la1 03/31 19:13 Order name: COVID-19 : Document "Date of Symptom Onset" if Symptomatic. mw2 03/31 19:30 Order name: CORONAVIRUS [facility] 03/31 19:32 Order name: RAD EDPR 03/31 20:18 Order name: CBC Smear Scan [facility] 03/31 20:24 Order name: SARS-COV-2 RT PCR [facility] 03/31 16:57 Order name: Labs collected and sent; Complete Time: 17:11 [facility] 03/31 16:57 Order name: O2 Per Protocol; Complete Time: 17:11 [facility] 03/31 16:57 Order name: O2 Sat Monitoring; Complete Time: 17:11 [facility] 03/31 16:57 Order name: Glucose Level; Complete Time: 17:12 jr8 Administered Medications: 18:28 Drug: Magnesium Sulfate 2 grams Route: IVPB; Infused Over: 2 hrs; Site: right ap3 antecubital; 21:00 Follow up: IV Status: Completed infusion ea 18:28 Drug: NS 0.9% with KCl 20 mEq/L 1000 ml Route: IV; Rate: 500 ml/hr; Site: right ap3 antecubital; 21:00 Follow up: Response: No adverse reaction; IV Status: Completed infusion; IV Intake: ea 1000ml Disposition: 18:37 Co-signature as Attending Physician, Porter Sahni MD I agree with the assessment and rn plan of care. PA/PIGMENT MIXER's history reviewed, patient interviewed, and examined. HPI: 71-year-old female presents with strokelike symptoms and possible seizure-like activity. Boyfriend states now back to baseline. States noticed slurred speech and crooked face along with difficulty walking, followed by period of unresponsiveness. My personal exam of patient reveals: 71-year-old female with cerebral palsy, mild dysarthria(baseline), moves all 4 extremities with 4 out of 5 strength, sensation grossly intact, GCS 15, no facial droop, no drift in extremities. I agree with assessment and care plan and confirm the diagnosis (es) above. Disposition Summary: 03/31/21 18:22 Hospitalization Ordered Hospitalization Status: Observation jr8 Provider: Dimitri Carias Location: Telemetry/MedSurg (observation) [facility] Condition: Stable jr8 Problem: new jr8 Symptoms: have improved jr8 Bed/Room Type: Standard [facility] Room Assignment: 207(03/31/21 21:28) 1 Diagnosis - Other seizures jr8 - Hypomagnesemia jr8 - Hypokalemia jr8 - Dehydration jr8 Forms: - Medication Reconciliation Form jr8 - SBAR form jr8 NIH Stroke Scale - NIH Stroke Score Date: 03/31/2021 Time: 18:10 Total Score = 1 1a. Level of Consciousness (LOC) - 0(Alert) 1b. Level of Consciousness (LOC) (Month \\T\\ Age) - 0(Both) 1c. LOC Commands (Open \\T\\ Closes Eyes/Morning Show Newscast Producer) - 0(Both) 2. Best Gaze (Lateral Gaze Paresis) - 0(Normal) 3. Visual Field Loss - 0(No visual loss) 4. Facial Palsy - 0(Normal) 5a. Left Arm: Motor (10-second hold) - 0(No drift) 5b. Right Arm: Motor (10-second hold) - 0(No drift) 6a. Left Leg: Motor (5-second hold - always test supine) - 0(No drift) 6b. Right Leg: Motor (5-second hold - always test supine) - 0(No drift) 7. Limb Ataxia (finger/nose \\T\\ heel/phillips - test with eyes open) - 0(Absent) 8. Sensory Loss (pinprick arms/legs/face) - 0(Normal) 9. Best Language: Aphasia (description/naming/reading) - 0(No aphasia) 10. Dysarthria (speech clarity - read or repeat words) - 1(Mild to Moderate) 11. Extinction and Inattention (visual/tactile/auditory/spatial/personal) - 0(No abnormality) Initials: jrJamila Signatures: Dispatcher [employer] EDMS Porter Sahni MD MD rn Smirch, Shelby RN Blu Pritchard PA PA jr8 Acosta Toribio, HUMAN SERVICES PROGRAM SPECIALIST-C HUMAN SERVICES PROGRAM SPECIALIST-Cla1 Nora Worley RN RN tl1 Maritza Masters RN RN Fabienne Woods RN RN ap3 Michelle Rodriguez RN ea Corrections: (The following items were deleted from the chart) 18:22 18:21 URINE DRUG SCREEN+CHEM UR.LAB.BRZ ordered. EDMS EDMS 18:23 18:21 BASIC METABOLIC PANEL+C.LAB.BRZ ordered. EDMS EDMS 18:23 18:21 CBC+H.LAB.BRZ ordered. EDMS EDMS 18:23 18:21 HEPATIC FUNCTION+C.LAB.BRZ ordered. EDMS EDMS 18:23 18:21 MAGNESIUM+C.LAB.BRZ ordered. EDMS EDMS 18:23 18:21 PROBNP+C.LAB.BRZ ordered. EDMS EDMS 18:23 18:21 PROTIME (+INR)+COAG.LAB.BRZ ordered. EDMS EDMS 18:23 18:21 TROPONIN (EMERG DEPT USE ONLY)+C.LAB.BRZ ordered. EDMS EDMS 21:28 18:22 [facility] tl1
[2021-03-31] MEDS ORDERED: NS KCL 20MEQ 1,000 ML IV ONE (18:40)
[2021-03-31] MEDS ORDERED: Magnesium Sulfate 2gm IVPB 2 G/50 ML BAG IV ONE (18:41)
--- NOTE | 2021-03-31 19:00 | RAD REPORT ---
EXAM DESCRIPTION: CT - Head Brain Wo Cont - 03/31/2021 6:27 pm CLINICAL HISTORY: SEIZURE Headache, drowsiness COMPARISON: HEAD BRAIN W O CONTRAST dated 11/26/2010; Head Brain Wo Cont dated 10/27/2018 TECHNIQUE: All CT scans are performed using dose optimization technique as appropriate and may inclu de automated exposure control or mA/KV adjustment according to patient size. FINDINGS: No acute hemorrhage or midline shift. No extra-axial collection. Prominent posterior fossa cystic structure and generalized ventricular dilatation is similar to prior study and is a chronic f inding in this patient.No areas of brain edema or evidence of midline shift. The paranasal sinuses and mastoids are clear. The calvarium is intact. IMPRESSION: No acute intracranial abnormality. The findings were discussed with Dr. Sahni in the ER on 03/31/2021 at 5 p.m. by telephone.
--- NOTE | 2021-03-31 19:23 | P.HP ---
Certification for Inpatient Patient admitted to: Inpatient With expected LOS: >2 Midnights Patient will require the following post-hospital care: None Practitioner: I am a practitioner with admitting privileges, knowledge of patient current condition, hospital course, and medical plan of care. Services: Services provided to patient in accordance with Admission requirements found in Title 42 Section 412.3 of the Code of Federal Regulations Patient History Date of Service: 03/31/21 Primary Care Provider: Dr. Sotelo Reason for admission: Acute kidney injury, altered mental status History of Present Illness: 71-year-old female with history of cervical palsy, hypertension, hypothyroidism presents emerge department for possible seizure-like activity. reports that they were out in public when somebody notified him that his was on the ground and appeared to be having a seizure, reports patient had seizure activity for 30 to 40 seconds, EMS reported that patient appeared to be postictal upon their arrival. Patient with no history of seizure disorder. CT head brain in emergency department without contrast demonstrated no acute intracranial abnormality prominent posterior fossa cystic structure and generalized ventricular dilatation similar to previous studies and is a chronic finding in this patient no area of edema or midline shift. Patient currently back at baseline mental status no neurological deficits noted on exam. Further work-up revealed labs significant for white blood cell count 13.1 hemoglobin 10.9 hematocrit 33.2 potassium 2.8 CO2 18 BUN 28 creatinine 2.99 GFR 15 magnesium 1.6 BNP 422 troponin 0 0.02, patient's baseline GFR appears to be around 35, baseline creatinine around 1.5. Chest x-ray without acute findings, ED provider wishes to admit for acute kidney injury, hypokalemia, hypomagnesemia, possible new onset seizure versus TIA. Allergies No Known Drug Allergies Allergy (Verified 03/08/16 12:13) Unknown No Known Allergies Allergy (Uncoded 08/27/16 13:58) Unknown Home Medications: Atorvastatin Calcium 40 mg PO DAILY 03/07/16 Benzonatate 100 mg PO QIDP PRN 03/07/16 Ergocalciferol (Vitamin D2) [Vitamin D2] 50,000 unit PO SEECOM 03/07/16 Fluoxetine HCl [Prozac] 40 mg PO DAILY 03/07/16 Hydralazine HCl [Apresoline] 50 mg PO TID 03/07/16 Levothyroxine [Synthroid] 75 mcg PO [id number] 03/07/16 Losartan Potassium 100 mg PO DAILY 03/07/16 Montelukast Sodium [Singulair] 10 mg PO DAILY 03/07/16 hydroCHLOROthiazide [Hydrodiuril] 25 mg PO DAILY 03/07/16 - Past Medical/Surgical History Diabetic: No -: Depression -: HTN -: Hyperlipidemia -: Chronic kidney dx -: Hysterectomy -: knee surgery -: bilat mastectomy Psychosocial/ Personal History: Patient lives at home with her boyfriend - Family History Father History Unknown: Yes - Social History Smoking Status: Never smoker Alcohol use: No CD- Drugs: No Caffeine use: Yes Review of Systems 10-point ROS is otherwise unremarkable General: Weakness Neurological: Other (Patient does not recall events leading up to hospitalization), As per HPI Physical Examination - Physical Exam General: Alert, In no apparent distress, Oriented x2 HEENT: Atraumatic, Normocephalic Neck: Supple Respiratory: Clear to auscultation bilaterally, Normal air movement Cardiovascular: No edema, Regular rate/rhythm, Normal S1 S2 Capillary refill: <2 Seconds Gastrointestinal: Normal bowel sounds, Soft and benign Musculoskeletal: No contractures, No erythema, No tenderness Integumentary: No significant lesion, No tenderness/swelling, No erythema Neurological: Normal speech, Normal strength at 5/5 x4 extr, Sensation intact - Studies Laboratory Data (last 24 hrs) 03/31/21 17:08: PT 13.0 H, INR 1.13 03/31/21 17:08: WBC 13.10 H, Hgb 10.9 L, Hct 33.2 L, Plt Count 202 03/31/21 17:08: Sodium 137, Potassium 2.8 L*, BUN 28 H, Creatinine 2.99 H, Glucose 123 H, Magnesium 1.6 L D, Total Bilirubin 0.6, AST 32, ALT 20, Alkaline Phosphatase 59, Troponin I 0.02 03/31/21 16:57: PT Cancelled, INR Cancelled 03/31/21 16:57: WBC Cancelled, Hgb Cancelled, Hct Cancelled, Plt Count Cancelled 03/31/21 16:57: Sodium Cancelled, Potassium Cancelled, BUN Cancelled, Creatinine Cancelled, Glucose Cancelled, Magnesium Cancelled, Total Bilirubin Cancelled, AST Cancelled, ALT Cancelled, Alkaline Phosphatase Cancelled Assessment and Plan - Plan Assessment: Altered mental statusresolved with possible seizure-like activity Acute kidney injury superimposed on CKD 3 Hypokalemia Hypomagnesemia Hypertension Hyperlipidemia Plan: Altered mental statusresolved with possible seizure-like activity: Patient back at baseline mental status at this time, EMS reported the patient appeared to be postictal during transportation, patient without any focal neurological deficits at this time. CT head brain negative for acute findings. Neurology consulted continue with MRI brain without contrast given renal function, echocardiogram, carotid Doppler, folic acid, aspirin, statin therapy. Appreciate further input from neurology, will provide medication for seizure if patient has more seizure-like activity. Acute kidney injury superimposed on CKD 3: Nephrology consulted, IV fluids as patient appears dry at this time renal ultrasound ordered Hypokalemia: Patient was given correction in the emergency department will recheck in the morning, no protocol in place given acute renal failure. Hypomagnesemia:Patient was given correction in the emergency department will recheck in the morning, no protocol in place given acute renal failure. Hypertension: Obtain and continue medications, hold AMANDA/ARB given current renal function Hyperlipidemia: Continue with statin therapy. DVT PPX: Heparin Code status: Full Discharge Plan: Home Plan to discharge in: 48 Hours - Advance Directives Does patient have a Living Will: No Does patient have a Durable POA for Healthcare: No - Code Status/Comfort Care Code Status Assessed: Yes (Full code) Critical Care: No Time Spent Managing Pts Care (In Minutes): 55
--- NOTE | 2021-03-31 19:31 | RAD REPORT ---
EXAM DESCRIPTION: RAD - Chest Single View - 03/31/2021 7:17 pm CLINICAL HISTORY: COUGH Chest pain. COMPARISON: Chest Pa And Lat (2 Views) dated 03/31/2020; Chest Pa And Lat (2 Views) dated 01/07/2020; Chest Pa And Lat (2 Views) dated 11/25/2019; Chest Single View dated 11/03/2018 FINDINGS: Portable technique limits examination quality. Mild interstitial lung prominence is seen which could indicate a mild of viral infection. The heart i s upper limit normal in size. No displaced fractures.
[2021-03-31 20:18] LABS: Blood Morphology Comment NOT SEEN (NOT SEEN); Platelet Estimate ADEQ; White Blood Cell Scan OK (OK)
[2021-03-31] MEDS ORDERED: ONDANSETRON 4 MG/2 ML VIAL IV PRN (22:10)
[2021-03-31] MEDS ORDERED: ACETAMINOPHEN 500 MG TAB PO PRN (22:10)
[2021-03-31 22:40] VITALS: BMI 26.1
[2021-03-31] MEDS: ATORVASTATIN 40 MG TAB PO SCH (23:05)
[2021-03-31] MEDS: HEPARIN 5000 UNIT/ML 1 ML VIAL SQ SCH (23:05)
[2021-03-31] MEDS: NA CHLORIDE 0.9% 1,000 ML IV SCH (23:06)
[2021-04-01 00:10] VITALS: O2SAT 95
--- NOTE | 2021-04-01 06:00 | P.PN ---
Subjective Date of Service: 04/01/21 Primary Care Provider: Dr. Sotelo Chief Complaint: Acute kidney injury, altered mental status Subjective: Improving, Doing well Physical Examination - Vital Signs Temperature: 97.4 F Blood Pressure: 116/59 Pulse: 74 Respirations: 18 Pulse Ox (%): 96 - Studies Laboratory Data (last 24 hrs) 03/31/21 17:08: PT 13.0 H, INR 1.13 03/31/21 17:08: WBC 13.10 H, Hgb 10.9 L, Hct 33.2 L, Plt Count 202 03/31/21 17:08: Sodium 137, Potassium 2.8 L*, BUN 28 H, Creatinine 2.99 H, Glucose 123 H, Magnesium 1.6 L D, Total Bilirubin 0.6, AST 32, ALT 20, Alkaline Phosphatase 59, Troponin I 0.02 03/31/21 16:57: PT Cancelled, INR Cancelled 03/31/21 16:57: WBC Cancelled, Hgb Cancelled, Hct Cancelled, Plt Count Cancelled 03/31/21 16:57: Sodium Cancelled, Potassium Cancelled, BUN Cancelled, Creatinine Cancelled, Glucose Cancelled, Magnesium Cancelled, Total Bilirubin Cancelled, AST Cancelled, ALT Cancelled, Alkaline Phosphatase Cancelled Assessment & Plan Discharge Plan: Home Plan to discharge in: 24 Hours Physician Review Additional Text: COVID: Negative CXR: COMPARISON: Chest Pa And Lat (2 Views) dated 03/31/2020; Chest Pa And Lat (2 Views) dated 01/07/2020; Chest Pa And Lat (2 Views) dated 11/25/2019; Chest Single View dated 11/03/2018 FINDINGS: Portable technique limits examination quality. Mild interstitial lung prominence is seen which could indicate a mild of viral infection. The heart is upper limit normal in size. No displaced fractures. CT Head: FINDINGS: No acute hemorrhage or midline shift. No extra-axial collection. Prominent posterior fossa cystic structure and generalized ventricular dilatation is similar to prior study and is a chronic finding in this patient.No areas of brain edema or evidence of midline shift. The paranasal sinuses and mastoids are clear. The calvarium is intact. IMPRESSION: No acute intracranial abnormality. MRI Brain: FINDINGS: No intracranial hemorrhage is present. No acute infarction change identifiable. There is no new mass lesion identifiable. The large posterior fossa cystic mass dates back to at least 2010. No gross change in size. Fourth ventricle enlargement is again noted. There is third and lateral ventriculomegaly present not clearly different going back to 2010. This is out of proportion to volume loss. Volume loss is progressive since 2010. Interval changes mild for this long interval. Chronic ischemic signal changes are minimal. There is no edema or shift of midline structures. Snider-matter/white matter junction is preserved. Signal voids are seen as a normal finding in the major intracranial vessels. No globe or orbital content abnormality. No sella or supra sella abnormality. Mastoid air cells and paranasal sinuses are clear. Motion degradation is present. IMPRESSION: No infarction, hemorrhage or acute intracranial finding identifiable. Large posterior fossa cystic masses ventriculomegaly are not clearly different back to 2010. Atrophy shows only mild progression over the last decade. ECHO: pending Carotid doppler: COMPARISON: No comparisons TECHNIQUE: Real-time sonographic evaluation of bilateral carotid and vertebral systems was performed. Snider scale and Doppler interrogation were performed with waveform tracing bilaterally. FINDINGS: Normal high resistance waveforms are noted in both external carotid arteries. The common carotid arteries and internal carotid arteries show normal low resistance waveforms. Scattered calcified plaquing changes are present in the bilateral distal common carotid arteries and the right bulb. No dissection seen. No significant degree of luminal narrowing identifiable. Left common carotid artery was tortuous. Peak systolic and end diastolic velocity values and the ICA/CCA ratios are in the non-hemodynamically significant range. Antegrade flow seen in both vertebral arteries. Velocity values and ratios were recorded and are retained in the patient's imaging records. IMPRESSION: Bilateral calcified plaquing changes are present. No evidence of a hemodynamically significant stenosis. Renal US: COMPARISON: No relevant comparison FINDINGS: The right kidney measures 8.5 x 4.4 x 3.6 cm. The left kidney measures 8.9 x 4.1 x 3.4 cm. Renal cortical thickness and echogenicity are normal. No hydronephrosis or suspicious renal mass. No bladder wall thickening or mass. No intraluminal stone or mass. IMPRESSION: No hydronephrosis or suspicious renal mass. No other significant findings. Physical Exam: General: Alert, In no apparent distress, Oriented x2 HEENT: Atraumatic, Normocephalic Neck: Supple Respiratory: Clear to auscultation bilaterally, Normal air movement Cardiovascular: No edema, Regular rate/rhythm, Normal S1 S2 Capillary refill: <2 Seconds Gastrointestinal: Normal bowel sounds, Soft and benign Musculoskeletal: No contractures, No erythema, No tenderness Integumentary: No significant lesion, No tenderness/swelling, No erythema Neurological: Normal speech, Normal strength at 5/5 x4 extr, Sensation intact Impression: Altered mental status likely related to acute renal injury with possible underlying chronic renal disease stage III complicated with history of chronic developmental disorder related to history of breech presentation at with hemorrhage now with MRI finding of large posterior fossa cystomalacia Hypokalemia Hypomagnesemia Hypertension Hyperlipidemia Hypothyroidism Depression with anxiety Plan: Altered mental status likely related to acute renal injury with possible underlying chronic renal disease stage III complicated with history of chronic developmental disorder related to history of breech presentation at with hemorrhage now with MRI finding of large posterior fossa cystomalacia: Patient stable. Patient back to her baseline. Case discussed in detail with neurology. Neurology suspects no need for antiseizure medication. Nephrology consulted. Continue with IV fluids. Renal function improved. Await echocardiogram results. Continue with physical therapy. Reassess tomorrow with likely discharge. Hypokalemia: Continue replacement protocol. Hypomagnesemia: Continue replacement protocol. Hypertension: Hold blood pressure medications at this time. Previously on losartan, hydrochlorothiazide and hydralazine. We will monitor this closely Hyperlipidemia: Continue Lipitor 40 mg daily Hypothyroidism: Resume levothyroxine 75 mcg. TSH and free T4 stable Depression with anxiety: Resume Zoloft DVT PPX: Heparin Code status: Full Advanced Care planning: home at discharge Time Spent Managing Pts Care (In Minutes): 55
[2021-04-01 06:08] LABS: Basophils % 0.3 % (0-1.3); Lymphocytes % 13.1 % (15.3-44.8); RBC Red Blood Cell Count 3.45 M/uL (3.86-4.86)
[2021-04-01 06:35] LABS: Albumin 2.8 g/dL (3.4-5.0); Bilirubin Total 0.5 mg/dL (0.2-1.0); Magnesium 2.5 mg/dL (1.8-2.4); Protein, Total 5.3 g/dL (6.4-8.2); Thyroid Stimulating Hormone 0.425 uIU/mL (0.360-3.740); Uric Acid 9.1 mg/dL (2.6-6.0)
[2021-04-01 06:40] LABS: Potassium 2.8 mmol/L (3.5-5.1)
--- NOTE | 2021-04-01 08:07 | RAD REPORT ---
EXAM DESCRIPTION: US - Renal Ultrasound-Complete - 04/01/2021 1:51 am CLINICAL HISTORY: ARF COMPARISON: No relevant comparison FINDINGS: The right kidney measures 8.5 x 4.4 x 3.6 cm. The left kidney measures 8.9 x 4.1 x 3.4 cm . Renal cortical thickness and echogenicity are normal. No hydronephrosis or suspicious renal mass. No bladder wall thickening or mass. No intraluminal stone or mass. IMPRESSION: No hydronephrosis or suspicious renal mass. No other significant findings.
--- NOTE | 2021-04-01 08:17 | RAD REPORT ---
EXAM DESCRIPTION: - CP - 04/01/2021 1:51 am CLINICAL HISTORY: ams , seizure vs tia COMPARISON: No comparisons TECHNIQUE: Real-time sonographic evaluation of bilateral carotid and vertebral systems was performed . Snider scale and Doppler interrogation were performed with waveform tracing bilaterally. FINDINGS: Normal high resistance waveforms are noted in both external carotid arteries. The common c arotid arteries and internal carotid arteries show normal low resistance waveforms. Scattered calcified plaquing changes are present in the bilateral distal common carotid arteries and the right bulb. No dissection seen. No significant degree of luminal narrowing identifiable. Left com mon carotid artery was tortuous. Peak systolic and end diastolic velocity values and the ICA/CCA rati os are in the non-hemodynamically significant range. Antegrade flow seen in both vertebral arteries. Velocity values and ratios were recorded and are retained in the patient's imaging records. IMPRESSION: Bilateral calcified plaquing changes are present. No evidence of a hemodynamically significant stenosis.
[2021-04-01] MEDS: HEPARIN 5000 UNIT/ML 1 ML VIAL SQ SCH ×3 (09:00→20:43)
[2021-04-01] MEDS: ASPIRIN EC 81 MG TAB PO SCH (09:00)
[2021-04-01] MEDS: FOLIC ACID 1 MG TABLET PO SCH (09:16)
--- NOTE | 2021-04-01 10:01 | RAD REPORT ---
EXAM DESCRIPTION: MRI - Brain Wo Cont - 04/01/2021 9:45 am CLINICAL HISTORY: AMS, poss seizure, history of TIA, history of breast cancer COMPARISON: Head Brain Wo Cont dated 03/31/2021; HEAD BRAIN W O CONTRAST dated 11/26/2010 TECHNIQUE: Sagittal T1-weighted images were obtained along with axial PD, heavily T2-weighted and T2 -FLAIR images. Axial DWI and ADC mapping sequences were also obtained along with coronal heavily T2-w eighted images. FINDINGS: No intracranial hemorrhage is present. No acute infarction change identifiable. There is n o new mass lesion identifiable. The large posterior fossa cystic mass dates back to at least 2010. No gross change in size. Fourth ventricle enlargement is again noted. There is third and lateral ventri culomegaly present not clearly different going back to 2010. This is out of proportion to volume loss . Volume loss is progressive since 2010. Interval changes mild for this long interval. Chronic ischem ic signal changes are minimal. There is no edema or shift of midline structures. Snider-matter/white matter junction is preserved. Si gnal voids are seen as a normal finding in the major intracranial vessels. No globe or orbital content abnormality. No sella or supra sella abnormality. Mastoid air cells and paranasal sinuses are clear. Motion degradation is present. IMPRESSION: No infarction, hemorrhage or acute intracranial finding identifiable. Large posterior fossa cystic masses ventriculomegaly are not clearly different back to 2010. Atrophy shows only mild progression over the last decade.
[2021-04-01] MEDS ORDERED: POTASSIUM CL SA 10 MEQ TAB PO ONE (10:07)
[2021-04-01] MEDS: NA CHLORIDE 0.9% 1,000 ML IV SCH ×2 (10:59→20:43)
[2021-04-01] MEDS ORDERED: PNEUMOCOCCAL VACCINE 0.5 ML IMVAC ONE (11:00)
[2021-04-01] MEDS ORDERED: POTASSIUM CL 40 MEQ in NA CHLORIDE 0.9% 500 ML IV SCH (11:00)
--- NOTE | 2021-04-01 14:55 | ECHO ---
HEIGHT: 4 ft 11 in WEIGHT: 129 lb 3 oz DATE OF STUDY: 04/01/[address]: Acosta Toribio NP 2-DIMENSIONAL: YES M.MODE: YES DOPPLER: YES COLOR FLOW: YES TDS: NO PORTABLE: NO DEFINITY: NO BUBBLE STUDY: NO DIAGNOSIS: AMS, POSSIBLE TIA CARDIAC HISTORY: CATHERIZATION: NO SURGERY: NO PROSTHETIC VALVE: NO PACEMAKER: NO MEASUREMENTS (cm) DIASTOLIC (NORMALS) SYSTOLIC (NORMALS) IVSd 1.1 (0.6-1.2) LA Diam 3.3 (1.9-4.0) LVEF 55-60% LVIDd 4.8 (3.5-5.7) LVIDs 3.5 (2.0-3.5) %FS 27% LVPWd 1.1 (0.6-1.2) Ao Diam 2.5 (2.0-3.7) 2 DIMENSIONAL ASSESSMENT: RIGHT ATRIUM: NORMAL LEFT ATRIUM: NORMAL RIGHT VENTRICLE: NORMAL LEFT VENTRICLE: NORMAL TRICUSPID VALVE: MITRAL VALVE: PULMONIC VALVE: NORMAL AORTIC VALVE: NORMAL PERICARDIAL EFFUSION: NONE AORTIC ROOT: NORMAL LEFT VENTRICULAR WALL MOTION: NORMAL DOPPLER/COLOR FLOW: SEE BELOW COMMENTS: NORMAL LEFT VENTRICULAR EJECTION FRACTION 55-60%. NORMAL WALL MOTION. MILD MITRAL AND TRICUSPID REGURGITATION. TECHNOLOGIST: Brit UREÑA
[2021-04-01] MEDS: ATORVASTATIN 40 MG TAB PO SCH (20:42)
--- NOTE | 2021-04-01 20:49 | CON ---
Reason For Consultation: Consultation called because of new onset seizure-like activity with altered mental status and brain mass. History Of Present Illness: Ms. Hannah is a 71-year-old right-handed patient with cerebral palsy, hy pertension, hypothyroidism, who was brought to [facility] after being found on the floor unr esponsive. Reportedly having seizure-like activity lasting about 40 seconds. EMS noted the patient to appear postictal. At [facility], head CT scan showed a large area of cystic encephalomal acia in the posterior fossa with dilated third and fourth ventricles. This was essentially unchanged compared to a study done 10 years ago. The patient was found to be in acute renal failure. Creatin ine 2.99, GFR 15, low magnesium of 1.8, slightly low hemoglobin of 10.9 and mildly elevated white blo od cell count of 13. She did not have any evidence of chest infection with a negative chest x-ray. On subsequent admission patient received hydration. Returned to baseline level of cognitive function ing and at the time that I have seen her, she was back to her normal self without additional seizure- like activity. Her initial workup included carotid artery ultrasound, which showed bilateral calcifi ed plaque without evidence of hemodynamically significant stenosis and brain MRI confirmed the presen ce of large cystic encephalomalacia in the posterior fossa, not different from 2011. There is also m ild progression of small vessel ischemic disease over the 10 years. On further questioning, the payal ent reports at her , she was a breech presentation. There was an attempted version procedure th at did not work well and that the patient had an intracerebral hemorrhage, which resulted in the cyst ic encephalomalacia and she has had lifelong difficulty with right arm and leg weakness, mild difficu lty with expression and sense of speech. Her articulation is also chronically difficult. She said s he was in special Ed school and did graduate and had been living mostly independently, even driving, although recently because of some worsening memory still not to drive anymore. Past Medical History: As noted. In addition to depression, dyslipidemia, hypothyroidism, hypertensi on, chronic kidney disease. Past Surgical History: Hysterectomy, knee surgery, bilateral mastectomy. Social History: She lives with a boyfriend. Allergies: NO KNOWN DRUG ALLERGIES. Medications: Atorvastatin 40 mg daily, benzonatate 100 mg 4 times daily as needed, vitamin D ___ units weekly, Prozac 40 mg daily, Apresoline 50 mg 3 times a day, Synthroid 75 mcg daily, losarta n 100 mg daily, Singulair 10 mg daily, HydroDIURIL 25 mg daily. Social History: Denies alcohol, tobacco, or IV drug use and does live with her live-in boyfriend. Review of Systems: Aside from mentioned above, which includes right-sided weakness, difficulty with articulation, some d ifficulty with expression and comprehension, along with stiffness in the extremities, she denies any recent fevers, chills, nausea, vomiting, myalgias, arthralgias, rash, weight change or other positive s. Physical Examination: Vital Signs: Blood pressure 119/54, pulse of 76, respiratory rate 15, temperature 97.4 up to 98.5, o xygen saturation 95% on room air. Weight 129 pounds, height 4 feet 11 inches, BMI 26. General: So, she is resting in bed. She is in no acute distress. HEENT: She does appear normocephalic and atraumatic. Her sclerae are anicteric. Oropharynx is mois t. Neck: Supple. Chest: Clear. Heart: Regular rate. Abdomen: Soft. Extremities: Show no significant clubbing, cyanosis, or edema. Neurologic: She is alert and oriented to person, place, and situation. She got the month right, the exact day, but she noted day of the week and did say and then instead of 2020 when I asked the exact year. She followed all commands appropriately, to move her arms and legs, and despite mild we akness in the right, she did have the symmetrical movements of both upper and lower extremities. Topography Technician nial nerves very subtle right-sided, nasolabial fold decreased, sensation intact bilaterally. Otherw ise unremarkable in the cranial nerve examination. Motor examination, very subtle right upper and lo wer extremity, decreased strength, perhaps 4+/5 proximally, distally on the left side, slightly weak, perhaps 5-/5 proximally and distally. Sensory exam intact in the upper and lower extremities. Coor dination; she is slow and stiff, but otherwise intact. In terms of ambulation, she was able to ambul ate over 70 feet with contact guard assistance using the Rollator. Assessment: 1.Ms. Hannah is a 71-year-old patient with an area of large posterior fossa cystic encephalomalacia area due to hemorrhagic event surrounding burst. She has no acute findings on MRI. She is admitted with acute renal failure and possible seizure-like activity. At this point, the electrolyte abnormal ities may be contributing factor. However, with the area of cystic encephalomalacia, it is possible that the patient may have seizures. She may benefit at some point from an EEG to rule out epileptifo rm activity, and if that is identified, she may be placed on antiepileptic medication, which may incl anastasiiae Keppra as appropriate. 2.She should be on aspirin 81 mg daily. Continue Lipitor 40 mg at bedtime. Continue folic acid valentina ly. Continue management of hypothyroidism and depression as appropriate. She may be discharged home with followup in Dr. Cardoza's clinic 1 month later. YOBANI/MARTHA Voice ID: [id number] Report ID: [id number]
[2021-04-02] MEDS: NA CHLORIDE 0.9% 1,000 ML IV SCH (04:10)
[2021-04-02] MEDS ORDERED: LEVOTHYROXINE SOD 0.075 MG TAB PO SCH (06:00)
--- NOTE | 2021-04-02 06:01 | P.DS ---
Admission Date: 03/31/21 Discharge Date: 04/02/21 Primary Care Provider: Dr. Sotelo Disposition: ROUTINE DISCHARGE Discharge Condition: GOOD Reason for Admission: Acute kidney injury, altered mental status Consultations: Neurology-Dr. Cardoza Nephrology-Dr. Portillo Procedures: COVID: Negative CXR: COMPARISON: Chest Pa And Lat (2 Views) dated 03/31/2020; Chest Pa And Lat (2 Views) dated 01/07/2020; Chest Pa And Lat (2 Views) dated 11/25/2019; Chest Single View dated 11/03/2018 FINDINGS: Portable technique limits examination quality. Mild interstitial lung prominence is seen which could indicate a mild of viral infection. The heart is upper limit normal in size. No displaced fractures. CT Head: FINDINGS: No acute hemorrhage or midline shift. No extra-axial collection. Prominent posterior fossa cystic structure and generalized ventricular dilatation is similar to prior study and is a chronic finding in this patient.No areas of brain edema or evidence of midline shift. The paranasal sinuses and mastoids are clear. The calvarium is intact. IMPRESSION: No acute intracranial abnormality. MRI Brain: FINDINGS: No intracranial hemorrhage is present. No acute infarction change identifiable. There is no new mass lesion identifiable. The large posterior fossa cystic mass dates back to at least 2010. No gross change in size. Fourth ventricle enlargement is again noted. There is third and lateral ventriculomegaly present not clearly different going back to 2010. This is out of proportion to volume loss. Volume loss is progressive since 2010. Interval changes mild for this long interval. Chronic ischemic signal changes are minimal. There is no edema or shift of midline structures. Snider-matter/white matter junction is preserved. Signal voids are seen as a normal finding in the major intracranial vessels. No globe or orbital content abnormality. No sella or supra sella abnormality. Mastoid air cells and paranasal sinuses are clear. Motion degradation is present. IMPRESSION: No infarction, hemorrhage or acute intracranial finding identifiable. Large posterior fossa cystic masses ventriculomegaly are not clearly different back to 2010. Atrophy shows only mild progression over the last decade. ECHO: MEASUREMENTS (cm) DIASTOLIC (NORMALS) SYSTOLIC (NORMALS) IVSd 1.1 (0.6-1.2) LA Diam 3.3 (1.9- 4.0) LVEF 55-60% LVIDd 4.8 (3.5-5.7) LVIDs 3.5 (2.0-3.5) %FS 27% LVPWd 1.1 (0.6-1.2) Ao Diam 2.5 (2.0-3.7) 2 DIMENSIONAL ASSESSMENT: RIGHT ATRIUM: NORMAL LEFT ATRIUM: NORMAL RIGHT VENTRICLE: NORMAL LEFT VENTRICLE: NORMAL TRICUSPID VALVE: MITRAL VALVE: PULMONIC VALVE: NORMAL AORTIC VALVE: NORMAL PERICARDIAL EFFUSION: NONE AORTIC ROOT: NORMAL LEFT VENTRICULAR WALL MOTION: NORMAL DOPPLER/COLOR FLOW: SEE BELOW COMMENTS: NORMAL LEFT VENTRICULAR EJECTION FRACTION 55-60%. NORMAL WALL MOTION. MILD MITRAL AND TRICUSPID REGURGITATION. Carotid doppler: COMPARISON: No comparisons TECHNIQUE: Real-time sonographic evaluation of bilateral carotid and vertebral systems was performed. Snider scale and Doppler interrogation were performed with waveform tracing bilaterally. FINDINGS: Normal high resistance waveforms are noted in both external carotid arteries. The common carotid arteries and internal carotid arteries show normal low resistance waveforms. Scattered calcified plaquing changes are present in the bilateral distal common carotid arteries and the right bulb. No dissection seen. No significant degree of luminal narrowing identifiable. Left common carotid artery was tortuous. Peak systolic and end diastolic velocity values and the ICA/CCA ratios are in the non-hemodynamically significant range. Antegrade flow seen in both vertebral arteries. Velocity values and ratios were recorded and are retained in the patient's imaging records. IMPRESSION: Bilateral calcified plaquing changes are present. No evidence of a hemodynamically significant stenosis. Renal US: COMPARISON: No relevant comparison FINDINGS: The right kidney measures 8.5 x 4.4 x 3.6 cm. The left kidney measures 8.9 x 4.1 x 3.4 cm. Renal cortical thickness and echogenicity are normal. No hydronephrosis or suspicious renal mass. No bladder wall thickening or mass. No intraluminal stone or mass. IMPRESSION: No hydronephrosis or suspicious renal mass. No other significant findings. 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 Significant other reports that they were out in public when somebody notified him that his was on the ground and appeared to be having a seizure. reported this occurred for about 30 seconds. EMS arrived to find patient. No prior history of seizure disorder. Patient evaluated in the emergency room. CT head unremarkable for acute changes. Prominent posterior fossa cystic structure noted with ventricular dilation. This appears to be a chronic finding. Patient also found to have acute renal failure. Patient admitted for further evaluation and treatment. Hospital Course: Patient presented with altered mental status/acute encephalopathy likely from acute renal injury. This was complicated with history of chronic developmental disorder related to history of breech presentation at with hemorrhage. Initial CT showed no acute abnormality. Large posterior fossa cystic mass noted with fourth ventricle enlargement noted. MRI confirmed no acute finding. Patient was treated with IV fluids with improvement. Patient seen and evaluated by neurology. Neurology suspects because of her prior developmental delay was likely related to her breech presentation at . Patient has chronic cystic encephalomalacia. No intervention required at this time. No need for seizure medication. Neurology recommends the patient to continue with aspirin 81 mg daily, folic acid 1 mg daily, and Lipitor 40 mg daily. Adjustments in her medication for blood pressure were made. Recommend follow-up with neurology in 2 to 4 weeks to follow-up his hospitalization. Recommend follow-up with PCP in 1 week to follow-up with this hospitalization and continue her care. As mentioned above patient presented with acute renal injury likely from dehydration. Patient received IV fluids with improvement. Nephrology was consulted to further evaluate. Renal function back to baseline. Patient likely with underlying chronic renal disease stage III. Recommend follow-up with nephrology in 1 week to follow-up his hospitalization. Recommend to recheck labBMP to monitor stability of her renal function. Patient with history of hypertension. Blood pressures have been held due to her current presentation. Patient previously on losartan 100 mg daily, hydrochlorothiazide 25 mg daily and hydralazine 50 mg three times a day. Blood pressure remained stable off medications. At discharge recommend to hold medications at this time. Recommend to monitor blood pressure daily. Recommend to maintain blood pressure less than 130/80. If her blood pressures start to increase above 140/90 then her medication may need to be restarted. If medication needs to be restarted she should reach her PCP for assistance. Recommend follow-up with PCP within 1 week to follow-up his hospitalization.. Patient with hyperlipidemia. At discharge patient may continue with Lipitor 40 mg daily. Patient with hypothyroidism. Overall stable. At discharge she will continue with levothyroxine 75 mcg daily. Patient with depression. At discharge patient may continue with Prozac 40 mg daily. Patient with iron deficiency anemia. Recommend to start iron supplementation daily. Recommend to recheck CBC in 1 month to monitor her progress. Patient may benefit with GI evaluation as an outpatient to further address. This can be done with the help of her PCP. Vital Signs/Physical Exam: Temp Pulse Resp BP Pulse Ox 97.6 F 77 18 119/60 95 04/02/21 04:00 04/02/21 04:00 04/02/21 04:00 04/02/21 04:00 04/02/21 04:00 General: Alert, In no apparent distress, Oriented x3, Cooperative HEENT: Atraumatic Neck: Supple Respiratory: Clear to auscultation bilaterally, Normal air movement Cardiovascular: Normal pulses, Regular rate/rhythm Gastrointestinal: Normal bowel sounds, No ascites Musculoskeletal: No erythema, No tenderness, No warmth Integumentary: No tenderness/swelling Neurological: Normal speech, Normal strength at 5/5 x4 extr, Normal tone Laboratory Data at Discharge: WBC 7.80 K/uL (4.3-10.9) D 04/01/21 05:40 Hgb 9.9 g/dL (12.0-15.0) L 04/01/21 05:40 Hct 29.0 % (36.0-45.0) L 04/01/21 05:40 Plt Count 175 K/uL (152-406) 04/01/21 05:40 PT 13.0 SECONDS (9.5-12.5) H 03/31/21 17:08 INR 1.13 03/31/21 17:08 Sodium 142 mmol/L (136-145) 04/01/21 05:40 Potassium 3.9 mmol/L (3.5-5.1) 04/01/21 19:07 BUN 21 mg/dL (7-18) H 04/01/21 05:40 Creatinine 1.87 mg/dL (0.55-1.3) H D 04/01/21 05:40 Glucose 90 mg/dL (74-106) 04/01/21 05:40 Uric Acid 9.1 mg/dL (2.6-6.0) H D 04/01/21 05:40 Magnesium 2.5 mg/dL (1.8-2.4) H D 04/01/21 05:40 Total Bilirubin 0.5 mg/dL (0.2-1.0) 04/01/21 05:40 AST 30 U/L (15-37) 04/01/21 05:40 ALT 21 U/L (12-78) 04/01/21 05:40 Alkaline Phosphatase 50 U/L (45-117) 04/01/21 05:40 Troponin I 0.02 ng/mL (0.0-0.045) 03/31/21 17:08 Triglycerides 96 mg/dL (<150) 04/01/21 05:40 Cholesterol 102 mg/dL (<200) 04/01/21 05:40 HDL Cholesterol 47 mg/dL (40-60) 04/01/21 05:40 Cholesterol/HDL Ratio 2.17 04/01/21 05:40 Home Medications: Atorvastatin Calcium 40 mg PO DAILY 03/07/16 Fluoxetine HCl [Prozac] 40 mg PO DAILY 03/07/16 Levothyroxine [Synthroid*] 75 mcg PO [id number] 03/07/16 Montelukast Sodium [Singulair] 10 mg PO DAILY 03/07/16 Aspirin [Aspirin EC 81 MG] 81 mg PO DAILY #30 tablet. 04/02/21 Ferrous Sulfate [Iron] 325 mg PO DAILY #30 tablet 04/02/21 Folic Acid 1 mg PO DAILY #90 tablet 04/02/21 New Medications: Aspirin [Aspirin EC 81 MG] 81 mg PO DAILY #30 tablet. Folic Acid 1 mg PO DAILY #90 tablet Ferrous Sulfate [Iron] 325 mg PO DAILY #30 tablet Physician Discharge Instructions: Patient presented with altered mental status/acute encephalopathy likely from acute renal injury. This was complicated with history of chronic developmental disorder related to history of breech presentation at with hemorrhage. Initial CT showed no acute abnormality. Large posterior fossa cystic mass noted with fourth ventricle enlargement noted. MRI confirmed no acute finding. Patient was treated with IV fluids with improvement. Patient seen and evaluated by neurology. Neurology suspects because of her prior developmental delay was likely related to her breech presentation at . Patient has chronic cystic encephalomalacia. No intervention required at this time. No need for seizure medication. Neurology recommends the patient to continue with aspirin 81 mg daily, folic acid 1 mg daily, and Lipitor 40 mg daily. Adjustments in her medication for blood pressure were made. Recommend follow-up with neurology in 2 to 4 weeks to follow-up his hospitalization. Recommend follow-up with PCP in 1 week to follow-up with this hospitalization and continue her care. As mentioned above patient presented with acute renal injury likely from dehydration. Patient received IV fluids with improvement. Nephrology was consulted to further evaluate. Renal function back to baseline. Patient likely with underlying chronic renal disease stage III. Recommend follow-up with nephrology in 1 week to follow-up his hospitalization. Recommend to recheck labBMP to monitor stability of her renal function. Patient with history of hypertension. Blood pressures have been held due to her current presentation. Patient previously on losartan 100 mg daily, hydrochlorothiazide 25 mg daily and hydralazine 50 mg three times a day. Blood pressure remained stable off medications. At discharge recommend to hold medications at this time. Recommend to monitor blood pressure daily. Recommend to maintain blood pressure less than 130/80. If her blood pressures start to increase above 140/90 then her medication may need to be restarted. If medication needs to be restarted she should reach her PCP for assistance. Recommend follow-up with PCP within 1 week to follow-up his hospitalization.. Patient with hyperlipidemia. At discharge patient may continue with Lipitor 40 mg daily. Patient with hypothyroidism. Overall stable. At discharge she will continue with levothyroxine 75 mcg daily. Patient with depression. At discharge patient may continue with Prozac 40 mg daily. Patient with iron deficiency anemia. Recommend to start iron supplementation daily. Recommend to recheck CBC in 1 month to monitor her progress. Patient may benefit with GI evaluation as an outpatient to further address. This can be done with the help of her PCP. Diet: AHA Activity: Ad nikolas Followup: Unknown,U [Primary Care Provider] - Time spent managing pt's care (in minutes): 55
[2021-04-02 06:13] LABS: Basophils % 0.4 % (0-1.3); Hematocrit 29.5 % (36.0-45.0); Lymphocytes % 12.6 % (15.3-44.8); MPV 8.3 fL (7.6-11.3); RBC Red Blood Cell Count 3.46 M/uL (3.86-4.86)
[2021-04-02 07:05] LABS: Albumin 2.6 g/dL (3.4-5.0); Bilirubin Total 0.4 mg/dL (0.2-1.0); Ferritin 94.6 ng/mL (8-388); Folic Acid, (Folate) 18.1 ng/mL (3.1-17.5); Magnesium 1.8 mg/dL (1.8-2.4); Phosphorus 1.4 mg/dL (2.5-4.9); Potassium 3.8 mmol/L (3.5-5.1); Protein, Total 5.1 g/dL (6.4-8.2); Uric Acid 6.7 mg/dL (2.6-6.0)
[2021-04-02 08:16] VITALS: BP 124/59; TEMP 97.8
[2021-04-02] MEDS: HEPARIN 5000 UNIT/ML 1 ML VIAL SQ SCH (08:42)
[2021-04-02] MEDS: FOLIC ACID 1 MG TABLET PO SCH (08:42)
[2021-04-02] MEDS: ASPIRIN EC 81 MG TAB PO SCH (08:42)
[2021-04-02] MEDS ORDERED: FLUOXETINE 20 MG CAP PO SCH (09:00)
--- NOTE | 2021-04-05 15:25 | EEG ---
CHART: [id number] TEST ID#: [id number] DATE OF STUDY: 04/01/2021 THE EEG WAS RECORDED PORTABLE IN THE PATIENT'S ROOM ON A 17 CHANNEL MACHINE. ELECTRODES WERE APPLIED IN THE USUAL MANNER USING THE INTERNATIONAL 10-20 SYSTEM. THE WAKING BACKGROUND RHYTHM IN THIS RECORD CONSISTS OF FAIRLY WELL DEVELOPED AND FAIRLY WELL ORGANIZED WAVES OF 8.5-9 HZ., MAXIMAL IN THE POSTERIOR HEAD REGIONS WHICH ATTENUATE NORMALLY WITH EYE OPENING. LOW-VOLTAGE 18-22 HZ ACTIVITY IS EXPRESSED IN THE FRONTAL REGIONS. OCCASIOANL MODERATE VOLTAGE 1.5-3 HZ ACTIVITY IS EXPRESSED IN THE FRONTAL REGION. THERE ARE NO FOCAL OR LATERALIZING FEATURES. NO EPILEPTIFORM ACTIVITY APPEARS. SLEEP DID NOT OCCUR. HYPERVENTILATION WAS NOT PERFORMED. PHOTIC STIMULATION PRODUCED GOOD DRIVING BILATERALLY. IMPRESSION: THIS IS A MILDLY ABNORMAL EEG DUE TO A MILDLY SLOW BACKGROUND. THIS IS A NON-SPECIFIC FINDING INDICATING THE PRESENCE OF A MILD DIFFUSE DISTURBANCE IN CEREBRAL FUNCTION.
[2021-04-07 22:47] LABS: Vitamin D 1,25-Dihydroxy Total 34 pg/mL (18-72); Vitamin D,1,25-OH2, D2 <8 pg/mL
== END 2021-04-02 09:28 | disposition home or self-care (01) | DRG 683 ==
LOC: ER 16:45 → ERHOLD 19:05 → 2ND 21:38
PROVIDERS: ADMIT Family Medicine; ATTEND Family Medicine
DX: N17.9 Acute kidney failure, unspecified (principal); G93.40 Encephalopathy, unspecified; E86.0 Dehydration; G93.89 Other specified disorders of brain; I12.9 Hypertensive chronic kidney disease with stage 1 through stage 4 chronic kidney disease, or unspecified chronic kidney disease; N18.30 Chronic kidney disease, stage 3 unspecified; E87.6 Hypokalemia; E83.42 Hypomagnesemia; E78.5 Hyperlipidemia, unspecified; E03.9 Hypothyroidism, unspecified; F32.9 Major depressive disorder, single episode, unspecified; D50.9 Iron deficiency anemia, unspecified; F89 Unspecified disorder of psychological development; G80.9 Cerebral palsy, unspecified; F41.8 Other specified anxiety disorders; Z20.822 Contact with and (suspected) exposure to COVID-19
CPT/HCPCS: 36415; 70450; 70551; 71045; 76770; 80048; 80053; 80061; 80076; 80307; 82550; 82607; 82652; 82728; 82746; 83540; 83735; 83880; 83970; 84100; 84132; 84145; 84439; 84443; 84466; 84484; 84550; 85025; 85044; 85610; 93306; 93880; 95816; 96365; 96366; 97116; 97161; 99285; J1644; J3475; J3480; J7030; J7040; U0003

== ENCOUNTER 2021-05-13 10:12 | Emergency (ER) | payer OTHER | END 2021-05-13 10:38 | disposition left against medical advice (07) | LOC: ER 10:12 | DX: Z02.9 Encounter for administrative examinations, unspecified (principal) ==

== ENCOUNTER 2021-12-18 14:01 | Emergency (ER) | payer OTHER ==
--- OUTSIDE RECORDS SUMMARY | 2021-12-18 14:05 | XMS REPORT | Continuity of Care Document ---
:1950 Author Organization [facility] t Address [address] [place] [address] Care Team Providers Name Role Phone FAITH Primary Care Physician Unavailable PADMINI Attending Clinician Unavailable Padmini RADIOCOMMUNICATIONS TECHNICIAN Attending Clinician Deejay TRACY, S Attending Clinician Phyllis KENDRICK L Attending Clinician NADYA Attending Clinician Unavailable MD NADYA Attending Clinician Unavailable VIV Attending Clinician Unavailable MD VIV Q. Attending Clinician Unavailable Rajlori_P Attending Clinician Unavailable CAMERON Attending Clinician Unavailable PADMINI Admitting Clinician Unavailable NADYA Admitting Clinician Unavailable MD MAGAN ALVES Admitting Clinician Unavailable VIV Admitting Clinician Unavailable MD VIV Q. Admitting Clinician Unavailable Rajlori_P Admitting Clinician Unavailable Payers Payer Name Policy Type Policy Number Effective Date Expiration Date S [facility] MEDICARE PART A [id number] 1974 \\T\\ B 00:00:00 [employer] INDEMNITY [id number] 5143-01-01 2021 00:00:00 00:00:00 Problems Condition Condition Condition Status Onset Resolution Last Treating Co mments Source Name Details Category Date Date Treatment Clinician Date Essential Essential Disease Active Uni vers hypertensi hypertensi 04-12 it y of on on 00:00: [place] 00 Medical Branch Dyslipidem Dyslipidem Disease Active U nivers ia ia 04-12 ity of 00:00: [place] 00 Medical Branch Syncope Syncope Disease Active Univers and and 04-11 ity of collapse collapse 00:00: [place] 00 Medical Branch Bilateral Bilateral Disease Active 2014-07 Uni vers hand pain hand pain 0-29 ity of 00:00: [place] 00 Medical Branch Allergies, Adverse Reactions, Alerts Allergy Allergy Status Severity Reaction(s) Onset Inactive Treating Comm ents Source Name Type Date Date Clinician ARIPIPRA DRUG Active Anxiety Univers ZOLE INGREDI 09-06 ity of 00:00: [place] 00 [facility] Branch Aripipra Propensi Active Anxiety Unive rs zole ty to 09-06 ity of adverse 00:00: [place] reaction 00 Medical s Branch NO KNOWN Drug Active Univers ALLERGIE Class ity of S [facility] Social History Social Habit Start Date Stop Date Quantity Comments Source Exposure to Not sure [facility] SARS-CoV-2 [facility] (event) Branch Alcohol intake 2021-09-06 2021-09-06 Current Clever of 00:00:00 00:00:00 non-drinker of [facility] alcohol [place] (finding) Tobacco use and 2015-01-03 2015-01-03 Never used Universit y of exposure 00:00:00 00:00:00 [facility] Sex Ass[birth year] At [birth year] Universit y of 00:00:00 00:00:00 [facility] Smoking Status Start Date Stop Date Source Never smoker [facility] Medications Ordered Filled Start Stop Current Ordering Indication Dosage Frequency Signature Comments Components Source Medication Medication Date Date Medication? Clinician (SIG) Name Name benzonatate Yes [id number] 100mg Take 1 Univers 100 mg - capsule by ity of capsule 00:00: mouth 3 [place] 00 (three) Medical times Branch daily as needed for Cough. azithromyci 2021- No [id number] Take 2 Univers n 250 mg -09-12 tablets by ity of tablet 00:00: 05:59 mouth [place] 00 :00 daily for Medical 1 day, Branch THEN 1 tablet daily for 4 days. Take 500 mg day 1, then 250 mg days 2 to 5. benztropine 2020-07 Yes [id number] 1mg Take 1 Univers 1 mg tablet 0-25 tablet by ity of 00:00: mouth (two) Medical times Branch daily as needed (tremor). benztropine 2020-07 Yes [id number] 1mg Take 1 Univers 1 mg tablet 0-25 tablet by ity of 00:00: mouth 2 (two) Medical times Branch daily as needed (tremor). meloxicam Yes [id number] 7.5mg Take 1 Univers 7.5 mg 9- 9109 tablet by ity of tablet 00:00: mouth 00 daily. Medical Branch meloxicam Yes [id number] 7.5mg Take 1 Univers 7.5 mg 9- 9109 tablet by ity of tablet 00:00: mouth 00 daily. Medical Branch diclofenac Yes 75mg Take 1 Unive rs 75 mg EC 4-23 tablet by ity of tablet 00:00: mouth (two) Medical times Branch daily with meals. diclofenac Yes 75mg Take 1 Unive rs 75 mg EC 4-23 tablet by ity of tablet 00:00: mouth (two) Medical times Branch daily with meals. azithromyci Yes [id number] 250mg Take 1 Univers n 4-20 tablet by ity of (ZITHROMAX 00:00: mouth [place] Z-SEBAS) 250 00 SEE-INSTRU Med ical mg tablet CTIONS. Branch Take 500 mg day 1, then 250 mg days 2 to 5. Nitrofurant 2020-0 Yes [id number] 100mg Take 1 Univers oin&Nit. 4-20 capsule by ity o f [place] (MACROBID[place] 00 (two) Medical 100 mg times Branch capsule daily. azithromyci 0 Yes [id number] 250mg Take 1 Univers n 4-20 tablet by ity of (ZITHROMAX 00:00: mouth [place] Z-SEBAS) 250 00 SEE-INSTRU Med ical mg tablet CTIONS. Branch Take 500 mg day 1, then 250 mg days 2 to 5. Nitrofurant 2021-0 Yes [id number] 100mg Take 1 Univers oin&Nit. 4-20 capsule by ity o f [place] (MACROBID) 00 (two) Medical 100 mg times Branch capsule daily. vit Yes 2{capsu Take 2 Univers C/E/Zn/natividad 9-27 le} capsules ity of r/lutein/ze 17:09: by mouth [place] axan 07 daily. Medical (PRESERVISI Branch ON AREDS-2 ORAL) vit Yes 2{capsu Take 2 Univers C/E/Zn/natividad 927 le} capsules ity of r/lutein/ze 17:09: by mouth [place] axan 07 daily. Medical (PRESERVISI Branch ON AREDS-2 ORAL) bromphenira 2015-07 Yes Ruiz kelsey mine-pseudo 1-22 ity of ephedrine-D 00:00: [place] M (BROMFED 00 Medical DM) 2-30-10 Branch mg/5 mL syrup bromphenira 2015-07 Yes [place] kelsey mine-pseudo 1-22 ity of ephedrine-D 00:00: [place] M (BROMFED 00 Medical DM) 2-30-10 Branch mg/5 mL syrup atorvastati 2015-07 Yes [place] s n (LIPITOR) 1-12 ity of 40 mg 00:00: [place] tablet 00 Medical Branch atorvastati 2015-07 Yes Univer s n (LIPITOR) 1-12 ity of 40 mg 00:00: [place] tablet 00 Medical Branch hydralAZINE 2014-07 Yes 3 (three) U nivers (APRESOLINE 0-26 times ity of ) 50 mg 00:00: [place] tablet 00 meals. Medical Branch hydralAZINE 2014-07 Yes 3 (three) U nivers (APRESOLINE 0-26 times ity of ) 50 mg 00:00: [place] tablet 00 meals. Medical Branch amLODIPine 2014-07 Yes Univers (NORVASC) 0-10 ity of 10 mg 00:00: [place] tablet 00 Medical Branch hydrochloro 2014-07 Yes Univer s thiazide 0-10 ity of (ESIDRIX) 00:00: [place] 25 mg 00 Medical tablet Branch losartan 2014-07 Yes Univers (COZAAR) 0-10 ity of 100 mg 00:00: [place] tablet 00 Medical Branch amLODIPine 2014-07 Yes Univers (NORVASC) 0-10 ity of 10 mg 00:00: [place] tablet 00 Medical Branch hydrochloro 2014-07 Yes Univer s thiazide 0-10 ity of (ESIDRIX) 00:00: [place] 25 mg 00 Medical tablet Branch losartan 2014-07 Yes Univers (COZAAR) 0-10 ity of 100 mg 00:00: [place] tablet 00 Medical Branch levothyroxi 2014-07 Yes Univer s ne 0-06 ity of (SYNTHROID) 00:00: [place] 75 mcg 00 Medical tablet Branch levothyroxi 2014-07 Yes Univer s ne 0-06 ity of (SYNTHROID) 00:00: [place] 75 mcg 00 Medical tablet Branch FLUoxetine Yes Univers (PROZAC) 40 8-27 ity of mg capsule 00:00: [place] 00 Medical Branch FLUoxetine Yes Univers (PROZAC) 40 8-27 ity of mg capsule 00:00: [place] 00 Medical Branch Vital Signs Vital Name Observation Time Observation Value Comments Source Systolic blood 2021-09-07 01:24:00 170 mm[Hg] Univer sity of pressure [facility] Diastolic blood 2021-09-07 01:24:00 74 mm[Hg] Unive rsity of [facility] Heart rate 2021-09-07 01:24:00 56 /min [facility] Respiratory rate 2021-09-07 01:24:00 20 /min [facility] Oxygen saturation in 2021-09-07 01:24:00 96 /min [facility] Arterial blood by [facility] Pulse oximetry [place] Body temperature 2021-09-06 22:38:00 36.83 Tiffanie [facility] Body weight 2021-09-06 22:37:00 54.432 kg [facility] BMI 2021-09-06 22:37:00 24.24 kg/m2 [facility] Systolic blood 2021-06-04 14:04:00 119 mm[Hg] Univer sity of pressure [facility] Diastolic blood 2021-06-04 14:04:00 63 mm[Hg] Unive rsity of [facility] Heart rate 2021-06-04 14:04:00 72 /min [facility] Body height 2021-06-04 14:04:00 149.9 cm [facility] Body weight 2021-06-04 14:04:00 59.875 kg [facility] BMI 2021-06-04 14:04:00 26.66 kg/m2 [facility] Procedures Procedure Date / Time Performing Clinician Source Performed XR CHEST 2 VW 2021-09-06 23:44:50 Ligia Adan [facility] TROPONIN I 2021-09-06 23:05[facility] METABOLIC PANEL 2021-09-06 23:05:00 Ligia Adan [facility] ([id number]) [facility] CBC WITH DIFF 2021-09-06 23:05:00 Padmini [facility] URINALYSIS 2021-09-06 23:05:00 Padmini [facility] N-TERMINAL PRO-BNP 2021-09-06 23:05:00 Ligia Adan [facility] COVID-19 (ID NOW RAPID 2021-09-06 23:05:00 Ligia Adan [facility] TESTING) [facility] CONSENT/REFUSAL FOR 2021-09-06 22:29:32 Doctor Unassigned, [facility] DIAGNOSIS AND TREATMENT [place] [facility] Branch URIC ACID 2021-06-04 14:58:00 Cory Villalba [facility] RHEUMATOID FACTOR 2021-06-04 14:58:00 Cory Villalba [facility] SEDIMENTATION RATE 2021-06-04 14:58:00 Cory Villalba [facility] CBC WITH DIFF 2021-06-04 14:58:00 Cory Villabla [facility] ANTI-NUCLEAR ANTIBODY 2021-06-04 14:58:00 Cory Villalba [facility] STREPTOLYSIN O ANTIBODY 2021-06-04 14:58:00 Cory Villalba [facility] (ASO) [facility] ANTI-NUCLEAR 2021-06-04 14:58:00 Cory Villalba [facility] [place] ANTIBODY-PATHOLOGIST Medical [facility] INTERPRETATION Encounters Start End Encounter Admission Attending Care Care Encounter Source Date/Time Date/Time Type Type Clinicians Facility Department ID 2021-09-06 2021-09-06 Emergency X PADMINI, [facility] ERT [id number] Univers 16:46:00 19:27:00 LIGIA itdarius [facility] 2021-09-06 2021-09-06 Emergency Adan, [facility] [id number] Univers 16:46:00 19:27:00 Ligia HITTERDAL 350.1.13.10 i ty [facility] 4.2.7.2.686 [place] [id number] [address] 2021-06-04 2021-06-04 Office Cory Villalba [facility] [id number] Univers 07:20:36 08:31:31 Visit Chandrakant Ferguson X[place] [id number] itdarius [facility] 4.2.7.2.686 Asael as LAURA?BLEA [id number] [address] MEDICAL OFFICE BUILDING 2021-05-13 2021-05-16 Inpatient DHAVAL, [facility] [id number] [place] 00:00:00 00:00:00 JUNG 614 Method i 2021-01-22 2021-01-24 Outpatient VIV [facility] [id number] [place] 00:00:00 00:00:00 SARAH 205 Method i 2020-12-10 2020-12-12 [facility] [id number] [place] 00:00:00 00:00:00 SARAH 351 Method i 2020-10-28 2020-10-28 Outpatient Raju_P [facility] [id number] [place] 11:38:00 11:38:00 0414 [facility] 2020-02-28 2020-02-28 Telephone Ferguson, [facility] [id number] 00:00:00 00:00:00 Antrad Medical [id number] Surgical 4.2.7.2.686 Specialti [id number] [address] 2020-02-27 2020-02-27 Hospital [facility] [id number] 08:32:08 23:59:00 Encounter Chandrakant [facility]resp[facility] [id number] [facility] 4.2.7.2.686 Specialti [id number] es [address] [place] 2020-02-27 2020-02-27 Office [facility] [id number] 08:10:32 08:49:41 Visit Chandrakant [facility] [id number] Surgical 4.2.7.2.686 Specialti [id number] es [address] 2019-10-31 2019-10-31 Outpatient R [facility] [id number] Univers 07:45:00 07:45:00 Surgery [facility] Results Test Description Test Time Test Comments Results Result Comments Source TROPONIN I 2021-09-06 23:41:55 Test Item Value Reference Range Interpretation Comme nts TROPONIN I (test code = 0.006 ng/mL See_Comment [Au tomated message] The 1038093539) system which ge nerated this result tra nsmitted reference range : <=0.034. The reference r emory was not used to int erpret this result as normal/abnormal . JEAN (test code = JEAN) Reference (Normal) Range (defined by the 99th percentile reference limit): <= 0.034 ng/mL Note: Cardiac troponin begins to rise 3-4 hours after the onset of ischemia. Repeat in 4-6 hours if the sample was drawn within 3-4 hours of the onset of the symptom and found normal. Diagnosis of myocardial injury is made with acute changes in cTn concentrations with at least one serial sample above the 99th percentile upper reference limit (URL), taken together with the patient's clinical presentation. Biotin has been reported to cause a negative bias, interpret results relative to patient's use of biotin. Lab Interpretation Normal (test code = 44243-4) [id number] 23:38:33 Test Item Value Reference Range Interpretation Comments NT-proBNP (test code 597 pg/mL See_Comment H [Autom ated = 5502163795) message] The system which generated this result transmitted reference range : <=125. The reference range was not used to interpret this result as normal/abnormal . JEAN (test code = JEAN) Biotin has been reported to cause a negative bias, interpret results relative to patient's use of biotin. Lab Interpretation Abnormal (test code = 55395-8) [facility] [place] [facility]. METABOLIC PANEL (48804)2021-09-06 23:30:12 Test Item Value Reference Range Interpretation Comments NA (test code = 137 mmol/L 135-145 4551311745) K (test code = 4.4 mmol/L 3.5-5.0 3728212700) CL (test code = 103 mmol/L 98-108 3294706929) CO2 TOTAL (test code = 29 mmol/L 23-31 7279476576) AGAP (test code = 2-16 0000227086) BUN (test code = 29 mg/dL 7-23 H 9389517981) GLUCOSE (test code = 113 mg/dL 70-110 H 7570680087) CREATININE (test code = 1.17 mg/dL 0.50-1.04 H 2398164235) TOTAL BILI (test code = 0.4 mg/dL 0.1-1.7 8330304546) CALCIUM (test code = 8.4 mg/dL 8.6-10.6 L 0774213751) T PROTEIN (test code = 6.5 g/dL 6.3-8.2 3844661544) ALBUMIN (test code = 4.1 g/dL 3.5-5.0 8444015898) ALK PHOS (test code = 47 U/L 34-122 4837012166) ALTv (test code = 14 U/L 5-35 1742-6) AST(SGOT) (test code = 21 U/L 13-40 6964394173) eGFR (test code = mL/min/1.73m2 1766253407) JEAN (test code = JEAN) Association of Glomerular Filtration Rate (GFR) and Staging of Kidney Disease* + --+ --+ ------+| GFR (mL/min/1.73 m2) ?| With Kidney Damage ?| ?Without Kidney Damage+ --------+ --------+ +| ?>90 ?| ?Stage one ?| ? Normal ?+ ---+ ---+ -------+| ?60-89 ?| ?Stage two ?| ? Decreased GFR ? + --+ --+ ------+| ?30-59 ?| ?Stage three ?| ? Stage three ? + --+ --+ ------+| ?15-29 ?| ?Stage four ? | ? Stage four ?+ ---+ ---+ -------+| ?<15 (or dialysis) ? ?| ?Stage five ? | ? Stage five ?+ ---+ ---+ -------+ *Each stage assumes the associated GFR level has been in effect for at least three months. ?Stages 1 to 5, with or without kidney disease, indicate chronic kidney disease. Notes: Determination of stages one and two (with eGFR >59mL/min/1.73 m2) requires estimation of kidney damage for at least three months as defined by structural or functional abnormalities of the kidney, manifested by either:Pathological abnormalities or Markers of kidney damage (including abnormalities in the composition of the blood or urine or abnormalities in imaging tests). Lab Interpretation Abnormal (test code = 20475-6) [facility] WITH [id number] 23:18:46 Test Item Value Reference Range Interpretation Comments WBC (test code = See_Comment [Automated 9634-2) message] The sy stem which generated this result transmitted reference range : 4.30 - 11.10 10*3/?L. The reference range was not used to interpret this result as normal/abnormal . RBC (test code = See_Comment [Automated 950-8) message] The sy stem which generated this result transmitted reference range : 3.93 - 5.25 10*6/?L. The reference range was not used to interpret this result as normal/abnormal . HGB (test code = 11.8 g/dL 11.6-15.0 718-7) HCT (test code = 36.9 % 35.7-45.2 4544-3) MCV (test code = 84.4 fL 80.6-95.5 787-2) MCH (test code = 27.0 pg 25.9-32.8 785-6) MCHC (test code = 32.0 g/dL 31.6-35.1 786-4) RDW-SD (test code = 46.2 fL 39.0-49.9 17226-3) RDW-CV (test code = 15.1 % 12.0-15.5 788-0) PLT (test code = See_Comment [Automated 777-3) message] The sy stem which generated this result transmitted reference range : 166 - 358 10*3/ ?L. The reference r emory was not used to interpret this result as normal/abnormal . MPV (test code = 11.8 fL 9.5-12.9 54690-9) NRBC/100 WBC (test See_Comment [Automat ed code = 4008374004) message] The system which generated this result transmitted reference range : 0.0 - 10.0 /100 WBCs. The refer ence range was not u sed to interpret th is result as normal/abnormal . NRBC x10^3 (test code <0.01 See_Comment [Auto mated = 3495750003) message] The s ystem which generated this result transmitted reference range : 10*3/?L. The reference range was not used to interpret this result as normal/abnormal . GRAN MAT (NEUT) % 87.0 % (test code = 770-8) IMM GRAN % (test code 0.60 % = 0046314502) LYMPH % (test code = 8.1 % 736-9) MONO % (test code = 4.0 % 5905-5) EOS % (test code = 0.1 % 713-8) BASO % (test code = 0.2 % 706-2) GRAN MAT x10^3(ANC) 9.47 10*3/uL 1.88-7.09 H (test code = 6237306892) IMM GRAN x10^3 (test 0.06 10*3/uL 0.00-0.06 code = 4305274086) LYMPH x10^3 (test code 0.88 10*3/uL 1.32-3.29 L = 731-0) MONO x10^3 (test code 0.44 10*3/uL 0.33-0.92 = 742-7) EOS x10^3 (test code = <0.03 0.03-0.39 L 711-2) BASO x10^3 (test code <0.03 0.01-0.07 = 704-7) Lab Interpretation Abnormal (test code = 73759-9) [facility] [id number] 00:14:09ANA - Pathologist InterpretationANA HEp-2 IIFA Pathologist Interpretation Report Patient Name: Veronica Hannah ? ?Antinuclear Antibody (MED) Test (Anti-Cell Antibodies Test) Indirect Im munofluorescence Assay on HEp-2 Cells Screening titer: 1:80 (adults, > 18 years old), 1:40 (pediatrics, <= 18 years old)?Result: The antinuclear antibody (MED) screen is negative on interpretation. Remarks:This patient has a negative antinuclear antibody (MED) screening test. This suggests thatthe patient likely does not have a systemic autoimmune rheumatic disease, such as systemic lupus erythematosus (MED positive in ~95-100%), systemic sclerosis (MED positive in ~60-80%), or the followingdisorders in which MED positivity is part of the diagnostic criteria: drug-induced lupus, autoimmunehepatitis, or mixed connective tissue disease. However, the MED may be negative in rare cases of systemic lupus erythematosus and systemic sclerosis. The MED may also be negative in ~20% of patients presenting with autoimmune hepatitis. Additionally, MED positivity is less sensitive in the diagnosis of Sjogren's syndrome (~40- 70%) and dermatomyositis/polymyositis (~30-80%). MED is not useful for the diagnosis of rheumatoid arthritis, multiple sclerosis, idiopathic thrombocytopenic purpura, thyroid disease, discoid lupus, and fibromyalgia. (https://pubmed.ncbi.nlm.nih.gov/88143387/, https://pubmed.n cbi.nlm.nih.gov/24204714/) ? ? Therefore, a diagnosis cannot be based exclusively on MED detection and/or pattern and thus should be made via the integration of patient history, physical exam findings,and other diagnostic tests as clinically indicated. Merari Trotter MD ?06/21/2021 ?6:13 PMUTMB BETHANY DAVID [facility] (ASO[facility] 2021-06-08 03:02:15 Test Item Value Reference Range Interpretation Comments ASO (test code = <55 See_Comment REFERENCE I NTERVAL: 5370-2) Streptolysin O Antibody Access complete set of age- and/or gender-s pecific reference inter vals for this test in the [facility] P Laboratory Test Directory ([employer]).P erformed By: [facility] [address] [place], [place] [address]hedxjmus Director: Eleonora Silva MD [Automated mess age] The system which ge nerated this result transmit melissa reference range: 0 - 330 IU/mL. The reference range was not used to interpret th is result as normal/abnormal . [facility]ODY [id number] 19:11:02 Test Item Value Reference Range Interpretation Comments MED (test code = Negative Negative 8028894333) JEAN (test code = JEAN) Negative - No Anti-Nuclear Antibodies detected by IFA.Positive - MED IFA screen performed with a 1:80 dilution in adults and a 1:40 dilution in pediatrics. Any MED "Positive" will have titer performed and reported separately.Negative - No Anti-Nuclear Antibodies detected by IFA.Positive - MED IFA screen performed with a 1:80 dilution in adults and a 1:40 dilution in pediatrics. Any MED "Positive" will have titer performed and reported separately. Lab Interpretation (test Normal code = 85652-1) [facility] Hospital[facility]HEUM[facility]OID [id number] 17:43:53 Test Item Value Reference Range Interpretation Comments RF (test code = <20 See_Comment [Automated message] 1264843297) The system [employer] generated this result transmitted ref erence range: <20 IU/m L. The reference range was not used to int erpret this result as normal/abnormal . Lab Interpretation (test Normal code = 73305-3) [facility]ED[facility]ATION [id number] 21:28:00 Test Item Value Reference Range Interpretation Comments ESR (test code = See_Comment H [Automated message] 6204928527) The system [employer] generated this result transmitted ref erence range: 0 - 20 m m/HR. The reference r emory was not used to interpret this result as normal/abnor mal. Lab Interpretation (test Abnormal code = 01613-8) [facility] [id number] 21:21:41 Test Item Value Reference Range Interpretation Comments URIC ACID (test code = 7921927771) 4.9 mg/dL 2.9-6.0 Lab Interpretation (test code = Normal 05288-7) [facility] WITH [id number] 20:38:32 Test Item Value Reference Range Interpretation Comments WBC (test code = See_Comment [Automated 6690-2) message] The sy stem which generated this result transmitted reference range : 4.30 - 11.10 10*3/?L. The reference range was not used to interpret this result as normal/abnormal . RBC (test code = See_Comment [Automated 789-8) message] The sy stem which generated this result transmitted reference range : 3.93 - 5.25 10*6/?L. The reference range was not used to interpret this result as normal/abnormal . HGB (test code = 11.1 g/dL 11.6-15.0 L 718-7) HCT (test code = 36.5 % 35.7-45.2 4544-3) MCV (test code = 89.9 fL 80.6-95.5 787-2) MCH (test code = 27.3 pg 25.9-32.8 785-6) MCHC (test code = 30.4 g/dL 31.6-35.1 L 786-4) RDW-SD (test code = 44.4 fL 39.0-49.9 18933-1) RDW-CV (test code = 13.6 % 12.0-15.5 788-0) PLT (test code = See_Comment [Automated 777-3) message] The sy stem which generated this result transmitted reference range : 166 - 358 10*3/ ?L. The reference r emory was not used to interpret this result as normal/abnormal . MPV (test code = 11.4 fL 9.5-12.9 39261-4) NRBC/100 WBC (test See_Comment [Automat ed code = 5891087365) message] The system which generated this result transmitted reference range : 0.0 - 10.0 /100 WBCs. The refer ence range was not u sed to interpret th is result as normal/abnormal . NRBC x10^3 (test code <0.01 See_Comment [Auto mated = 7945015071) message] The s ystem which generated this result transmitted reference range : 10*3/?L. The reference range was not used to interpret this result as normal/abnormal . GRAN MAT (NEUT) % 74.3 % (test code = 770-8) IMM GRAN % (test code 0.40 % = 6242710398) LYMPH % (test code = 15.5 % 736-9) MONO % (test code = 8.4 % 5905-5) EOS % (test code = 1.2 % 713-8) BASO % (test code = 0.2 % 706-2) GRAN MAT x10^3(ANC) 6.26 10*3/uL 1.88-7.09 (test code = 8850014134) IMM GRAN x10^3 (test 0.03 10*3/uL 0.00-0.06 code = 6278209958) LYMPH x10^3 (test code 1.31 10*3/uL 1.32-3.29 L = 731-0) MONO x10^3 (test code 0.71 10*3/uL 0.33-0.92 = 742-7) EOS x10^3 (test code = 0.10 10*3/uL 0.03-0.39 711-2) BASO x10^3 (test code <0.03 0.01-0.07 = 704-7) Lab Interpretation Abnormal (test code = 27002-7) [facility] [Presence] in Respiratory specimen by NIVIA with probe [id number] 02:03:05 Test Item Value Reference Range Interpretation Comments SARS-CoV-2 (COVID-19) RNA Not detected Not-Detected [Presence] in Respiratory specimen by NIVIA with probe detection (test code = 13044-8) Whether patient is employed in a healthcare setting (test code = 82388-3) Whether the patient has symptoms related to condition of interest (test code = 08055-0) Patient was hospitalized because of this condition (test code = 83969-7) Whether the patient was admitted to intensive care unit (ICU) for condition of interest (test code = 59264-5) Whether patient resides in a congregate care setting (test code = 68235-6) SARS-CoV-2 (COVID-19) RNA [Presence] in Respiratory specimen by NIVIA with probe [id number] 20:51:54 Test Item Value Reference Range Interpretation Comments SARS-CoV-2 (COVID-19) RNA Not detected Not-Detected [Presence] in Respiratory specimen by NIVIA with probe detection (test code = 93071-5) Whether patient is employed in a healthcare setting (test code = 50499-8) Whether the patient has symptoms related to condition of interest (test code = 93454-3) Patient was hospitalized because of this condition (test code = 79979-4) Whether the patient was admitted to intensive care unit (ICU) for condition of interest (test code = 51353-2) Whether patient resides in a congregate care setting (test code = 90468-4) SARS-CoV-2 (COVID-19) RNA [Presence] in Respiratory specimen by NIVIA with probe [id number] 22:15:41 Test Item Value Reference Range Interpretation Comments SARS-CoV-2 (COVID-19) RNA Not detected Not-Detected [Presence] in Respiratory specimen by NIVIA with probe detection (test code = 35013-2) Whether patient is employed in a healthcare setting (test code = 90363-3) Whether the patient has symptoms related to condition of interest (test code = 29737-8) Patient was hospitalized because of this condition (test code = 35811-6) Whether the patient was admitted to intensive care unit (ICU) for condition of interest (test code = 84866-1) Whether patient resides in a congregate care setting (test code = 45646-6) SARS-CoV-2 (COVID-19) RNA [Presence] in Respiratory specimen by NIVIA with probe [id number] 19:37:15 Test Item Value Reference Range Interpretation Comments SARS-CoV-2 (COVID-19) RNA Not detected Not-Detected [Presence] in Respiratory specimen by NIVIA with probe detection (test code = 44301-6) Whether patient is employed in a healthcare setting (test code = 01316-9) Whether the patient has symptoms related to condition of interest (test code = 70249-4) Patient was hospitalized because of this condition (test code = 71113-6) Whether the patient was admitted to intensive care unit (ICU) for condition of interest (test code = 92838-6) Whether patient resides in a congregate care setting (test code = 06228-0)
[2021-12-18] MEDS ORDERED: IBUPROFEN 400 MG TAB ONE (14:34)
--- NOTE | 2021-12-18 15:14 | EDPHYS ---
Physician Documentation [facility] Name: Veronica Hannah Age: 71 yrs Sex: Female : 1950 Arrival Date: 12/18/2021 Time: 14:04 Bed 11 Private MD: Luis Grover HPI: 12/18 15:08 This 71 yrs old Female presents to ER via Wheelchair with complaints of Lower mark Extremity Pain/Weakness. 15:08 The patient presents with decreased range of motion, pain, that is chronic. The mark complaints affect the right leg and left leg. Context: The problem was sustained at an unknown site, resulted from an unknown cause, the patient can fully bear weight, the patient is able to ambulate. Onset: The symptoms/episode began/occurred 5 day(s) ago. Modifying factors: The symptoms are alleviated by elevating leg, remaining still, the symptoms are aggravated by movement, weight bearing, bending knee. Associated signs and symptoms: The patient has no apparent associated signs or symptoms. Treatment prior to arrival includes: no previous treatment. Severity of symptoms: At their worst the symptoms were mild, moderate, in the emergency department the symptoms are unchanged. The patient has not experienced similar symptoms in the past. Historical: - Allergies: 14:09 No Known Drug Allergies; ll1 - Home Meds: 14:26 Prozac Oral [Active]; levothyroxine oral [Active]; amlodipine oral [Active]; jg9 atorvastatin Oral [Active]; benzonatate 200 mg Oral tab 1 cap 3 times per day [Active]; Diovan Oral [Active]; fluoxetine 40 mg Oral tab 1 cap once daily [Active]; hydrochlorothiazide 25 mg Oral tab 1 tab once daily [Active]; losartan 100 mg Oral tab 1 tab once daily [Active]; - PMHx: 14:09 Asthma; Cerebral Palsy; Hypertension; Hypothyroidism; breast cancer; ll1 - PSHx: 14:09 L eye SX; B mastectomy; ll1 - Immunization history:: Client reports receiving the 2nd dose of the Covid vaccine. - Social history:: Smoking status: Patient denies any tobacco usage or history of. - Family history:: not pertinent. ROS: 15:08 Constitutional: Negative for fever, chills, and weight loss, Eyes: Negative for injury, mark pain, redness, and discharge, ENT: Negative for injury, pain, and discharge, Neck: Negative for injury, pain, and swelling, Cardiovascular: Negative for chest pain, palpitations, and edema, Respiratory: Negative for shortness of breath, cough, wheezing, and pleuritic chest pain, Abdomen/GI: Negative for abdominal pain, nausea, vomiting, diarrhea, and constipation, Back: Negative for injury and pain, : Negative for injury, bleeding, discharge, and swelling, Skin: Negative for injury, rash, and discoloration, Neuro: Negative for headache, weakness, numbness, tingling, and seizure, Psych: Negative for depression, anxiety, suicide ideation, homicidal ideation, and hallucinations, Allergy/Immunology: Negative for hives, rash, and allergies, Endocrine: Negative for neck swelling, polydipsia, polyuria, polyphagia, and marked weight changes, Hematologic/Lymphatic: Negative for swollen nodes, abnormal bleeding, and unusual bruising. 15:08 MS/extremity: Positive for decreased range of motion, pain, tenderness, of the right knee. Exam: 15:08 Constitutional: This is a well developed, well nourished patient who is awake, alert, mark and in no acute distress. Head/Face: Normocephalic, atraumatic. Eyes: Pupils equal round and reactive to light, extra-ocular motions intact. Lids and lashes normal. Conjunctiva and sclera are non-icteric and not injected. Cornea within normal limits. Periorbital areas with no swelling, redness, or edema. ENT: Nares patent. No nasal discharge, no septal abnormalities noted. Tympanic membranes are normal and external auditory canals are clear. Oropharynx with no redness, swelling, or masses, exudates, or evidence of obstruction, uvula midline. Mucous membranes moist. Neck: Trachea midline, no thyromegaly or masses palpated, and no cervical lymphadenopathy. Supple, full range of motion without nuchal rigidity, or vertebral point tenderness. No Meningismus. Chest/axilla: Normal chest wall appearance and motion. Nontender with no deformity. No lesions are appreciated. Cardiovascular: Regular rate and rhythm with a normal S1 and S2. No gallops, murmurs, or rubs. Normal PMI, no JVD. No pulse deficits. Respiratory: Lungs have equal breath sounds bilaterally, clear to auscultation and percussion. No rales, rhonchi or wheezes noted. No increased work of breathing, no retractions or nasal flaring. Abdomen/GI: Soft, non-tender, with normal bowel sounds. No distension or tympany. No guarding or rebound. No evidence of tenderness throughout. Back: No spinal tenderness. No costovertebral tenderness. Full range of motion. Female : Normal external genitalia. Skin: Warm, dry with normal turgor. Normal color with no rashes, no lesions, and no evidence of cellulitis. Neuro: Awake and alert, GCS 15, oriented to person, place, time, and situation. Cranial nerves II-XII grossly intact. Motor strength 5/5 in all extremities. Sensory grossly intact. Cerebellar exam normal. Normal gait. Psych: Awake, alert, with orientation to person, place and time. Behavior, mood, and affect are within normal limits. 15:08 Musculoskeletal/extremity: Extremities: grossly normal except: noted in the right knee: decreased ROM, pain, noted in the left knee: decreased ROM, pain, DVT Exam: no pain, no swelling, no tenderness, negative Homans' sign noted on exam, no appreciated bluish discoloration, no erythema, no increased warmth. Vital Signs: 14:08 BP 108 / 88; Pulse 68; Resp 16; Temp 98.6; Pulse Ox 98% ; Weight 56.7 kg; Height 5 ft. ll1 4 in. (162.56 cm); Pain 10/10; 14:30 BP 129 / 68; Pulse 64; Resp 20 S; Pulse Ox 98% on R/A; Pain 10/10; jg9 15:15 BP 134 / 72; Pulse 66; Resp 18 S; Pulse Ox 99% on R/A; Pain 1/10; jg9 14:08 Body Mass Index 21.46 (56.70 kg, 162.56 cm) ll1 MDM: 14:18 Patient medically screened. mark 15:10 Differential diagnosis: closed fracture, contusion, abrasion, tendonitis. Data mark reviewed: vital signs, nurses notes, radiologic studies, plain films. Data interpreted: potline monitor: not applicable for this patient encounter. rate is 64 beats/min, rhythm is regular, Pulse oximetry: on room air is 98 %. Test interpretation: by ED physician or midlevel provider: plain radiologic studies. Counseling: I had a detailed discussion with the patient and/or guardian regarding: the historical points, exam findings, and any diagnostic results supporting the discharge/admit diagnosis, radiology results, the need for outpatient follow up, for definitive care, a family practitioner, a orthopedic surgeon. 12/18 14:22 Order name: Knee Left 3 View XRAY [facility] 12/18 14:22 Order name: Knee Right 3 View XRAY [facility] 12/18 14:22 Order name: Trae wrap-joint; Complete Time: 15:24 [facility] 12/18 14:22 Order name: Ice pack; Complete Time: 14:32 mark Administered Medications: 14:32 Drug: Motrin (ibuprofen) 400 mg Route: PO; jg9 15:14 Follow up: Response: No adverse reaction; Pain is decreased jg9 Disposition Summary: 12/18/21 15:13 Discharge Ordered Location: Home mark Problem: new mark Symptoms: have improved mark Condition: Stable mark Diagnosis - Pain in left knee mark - Pain in right knee mark - Osteoarthritis, unspecified site mark Followup: mark - With: Private Physician - When: 2 - 3 days - Reason: Recheck today's complaints, Continuance of care, Re-evaluation by your physician Followup: mark - With: Charbel Escobar MD - When: 2 - 3 days - Reason: Recheck today's complaints, Re-evaluation by your physician Discharge Instructions: - Discharge Summary Sheet mark - Joint Pain mark - Arthritis mark - Musculoskeletal Pain mark - Arthritis, Ykhr-ji-Czar mark - Joint Pain, Etbu-pi-Ognn mark Forms: - Medication Reconciliation Form mark - Thank You Letter mark - Antibiotic Education mark - Prescription Opioid Use [facility] Prescriptions: - Motrin IB 200 mg Oral Tablet - take 2 tablet by ORAL route every 6 hours As needed as needed with food; 30 mark tablet; Refills: 0, Product Selection Permitted - Tylenol-Codeine #3 300 mg-30 mg Oral - take 1 tablet by ORAL route every 4 hours; 20 tablet; Refills: 0, Product mark Selection Permitted Signatures: Dispatcher [employer] Luis Champagne MD MD cha Lewis, Lynsay RN RN ll1 Alyssia Cartagena RN RN jg9
--- NOTE | 2021-12-18 15:14 | ER ---
Nurse's Notes [facility] Name: Veronica Hannah Age: 71 yrs Sex: Female : 1950 Arrival Date: 12/18/2021 Time: 14:04 Bed 11 Private MD: Diagnosis: Pain in left knee;Pain in right knee;Osteoarthritis, unspecified site Presentation: 12/18 14:08 Chief complaint: Patient states: Bilateral knee pains for at least 1 week. Hurts so bad ll1 she can barely walk. Coronavirus screen: Vaccine status: Patient reports receiving the 2nd dose of the covid vaccine. Client denies travel out of the [place] in the last 14 days. At this time, the client does not indicate any symptoms associated with coronavirus-19. Ebola Screen: Patient denies travel to an Ebola-affected area in the 21 days before illness onset. Initial Sepsis Screen: Does the patient meet any 2 criteria? No. Patient's initial sepsis screen is negative. Does the patient have a suspected source of infection? Yes: Bone or joint infection. Risk Assessment: Do you want to hurt yourself or someone else? Patient reports no desire to harm self or others. Onset of symptoms was December 11, 2021. 14:08 Method Of Arrival: Wheelchair ll1 14:08 Acuity: BALJIT 4 ll1 Triage Assessment: 14:10 General: Appears uncomfortable, Behavior is calm, cooperative, appropriate for age. ll1 Pain: Complains of pain in knees Quality of pain is described as aching. Neuro: No deficits noted. Cardiovascular: No deficits noted. Respiratory: No deficits noted. Musculoskeletal: Reports pain in right leg and left leg. Historical: - Allergies: 14:09 No Known Drug Allergies; ll1 - Home Meds: 14:26 Prozac Oral [Active]; levothyroxine oral [Active]; amlodipine oral [Active]; jg9 atorvastatin Oral [Active]; benzonatate 200 mg Oral tab 1 cap 3 times per day [Active]; Diovan Oral [Active]; fluoxetine 40 mg Oral tab 1 cap once daily [Active]; hydrochlorothiazide 25 mg Oral tab 1 tab once daily [Active]; losartan 100 mg Oral tab 1 tab once daily [Active]; - PMHx: 14:09 Asthma; Cerebral Palsy; Hypertension; Hypothyroidism; breast cancer; ll1 - PSHx: 14:09 L eye SX; B mastectomy; ll1 - Immunization history:: Client reports receiving the 2nd dose of the Covid vaccine. - Social history:: Smoking status: Patient denies any tobacco usage or history of. - Family history:: not pertinent. Screenin:25 Abuse screen: Denies threats or abuse. Denies injuries from another. Nutritional jg9 screening: No deficits noted. Tuberculosis screening: No symptoms or risk factors identified. Fall Risk None identified. Assessment: 15:00 Reassessment: No changes from previously documented assessment. Patient and/or family jg9 updated on plan of care and expected duration. Pain level reassessed. Patient is alert, oriented x 3, equal unlabored respirations, skin warm/dry/pink. Musculoskeletal: Reports pain in left leg and right leg-bilateral anterior and posterior knee pain. 15:24 Reassessment: Patient and/or family updated on plan of care and expected duration. Pain jg9 level reassessed. Patient is alert, oriented x 3, equal unlabored respirations, skin warm/dry/pink. Patient states feeling better. Patient states symptoms have improved. Vital Signs: 14:08 BP 108 / 88; Pulse 68; Resp 16; Temp 98.6; Pulse Ox 98% ; Weight 56.7 kg; Height 5 ft. ll1 4 in. (162.56 cm); Pain 10/10; 14:30 BP 129 / 68; Pulse 64; Resp 20 S; Pulse Ox 98% on R/A; Pain 10/10; jg9 15:15 BP 134 / 72; Pulse 66; Resp 18 S; Pulse Ox 99% on R/A; Pain 1/10; jg9 14:08 Body Mass Index 21.46 (56.70 kg, 162.56 cm) ll1 ED Course: 14:04 Patient arrived in ED. jj6 14:09 Triage completed. ll1 14:10 Arm band placed on. ll1 14:18 Luis Phipps MD is Attending Physician. [facility] 14:25 Alyssia Cartagena, NICOLA is Primary Nurse. jg9 14:27 Patient has correct armband on for positive identification. Bed in low position. Call jg9 light in reach. Side rails up X 1. 15:12 Charbel Escobar MD is Referral Physician. [facility] 15:24 Trae wrap to left knee. jg9 15:31 Knee Left 3 View XRAY In Process Unspecified. EDAZ 15:31 Knee Right 3 View XRAY In Process Unspecified. EDAZ 15:55 No provider procedures requiring assistance completed. jg9 15:56 Patient did not have IV access during this emergency room visit. jg9 Administered Medications: 14:32 Drug: Motrin (ibuprofen) 400 mg Route: PO; jg9 15:14 Follow up: Response: No adverse reaction; Pain is decreased jg9 Medication: 14:26 VIS not applicable for this client. jg9 Outcome: 15:13 Discharge ordered by . [facility] 15:55 Discharged to home via wheelchair. j9 15:55 Condition: improved 15:55 Discharge instructions given to patient, significant other, Instructed on discharge instructions, follow up and referral plans. Demonstrated understanding of instructions, follow-up care, medications, Prescriptions given X 2. 15:56 Patient left the ED. jg9 Signatures: Dispatcher [employer] EDAZ Luis Phipps MD MD cha Lewis, Lynsay, RN RN ll1 Alyssia Stevenj6 Alyssia Cartagena RN RN jg9 Corrections: (The following items were deleted from the chart) 14:11 14:08 Acuity: BALJIT 3 ll1 ll1
--- NOTE | 2021-12-18 15:48 | RAD REPORT ---
EXAM DESCRIPTION: RAD - Knee Left 3 View - 12/18/2021 3:29 pm CLINICAL HISTORY: Left knee pain FINDINGS: No fracture or dislocation is seen. Marked osteoarthritis medial compartment consisting of joint space narrowing, osteophytes and subchon dral sclerosis
--- NOTE | 2021-12-18 15:54 | RAD REPORT ---
EXAM DESCRIPTION: RAD - Knee Right 3 View - 12/18/2021 3:29 pm CLINICAL HISTORY: Right knee pain FINDINGS: No fracture or dislocation is seen. Bryant left knee arthroplasty. Prosthesis has been placed into the medial aspects of the femur and tibi a. Prostetic material lies along the medial aspect of the knee adjacent to the proximal tibia.
[2021-12-18 16:07] VITALS: TEMP 98.6
[2021-12-18 16:10] VITALS: BP 134/72; O2SAT 99
== END 2021-12-18 15:56 | disposition home or self-care (01) ==
LOC: ER 14:01
DX: M19.90 Unspecified osteoarthritis, unspecified site (principal); M25.561 Pain in right knee; M25.562 Pain in left knee; I10 Essential (primary) hypertension; E03.9 Hypothyroidism, unspecified; Z85.3 Personal history of malignant neoplasm of breast
CPT/HCPCS: 99284

== ENCOUNTER 2022-02-26 12:37 | Emergency (ER) | payer OTHER ==
--- OUTSIDE RECORDS SUMMARY | 2022-02-26 12:40 | XMS REPORT | Continuity of Care Document ---
:[address] [facility] t Address [address] [place] [address] Care Team Providers Name Role Phone ALIZA SOTO Primary Care Physician UnavailJONATHAN Flores Attending Clinician Unavailable Jonathan Benson Attending Clinician JUNG COVINGTON Attending Clinician Unavailable MD JUNG COVINGTON Attending Clinician Unavailable SARAH NAM Attending Clinician Unavailable MD SARAH NAM Attending Clinician Unavailable Raju_P Attending Clinician Unavailable Chandrakant Ferguson MD Attending Clinician JUNG COVINGTON Admitting Clinician Unavailable MD ABDI ALVES Admitting Clinician Unavailable SARAH NAM Admitting Clinician Unavailable MD SARAH NAM Admitting Clinician Unavailable Raju_P Admitting Clinician Unavailable Payers Payer Name Policy Type Policy Number Effective Date Expiration Date S ource Problems Condition Condition Condition Status Onset Resolution [...] and 04-11 ity of collapse collapse 00:00: [place] 00 Medical Branch Bilateral Bilateral Disease Active 2014-07 Uni vers hand pain hand pain 0-29 ity of 00:00: [place] 00 Medical Branch Allergies, Adverse Reactions, Alerts Allergy Allergy Status Severity Reaction(s) Onset Inactive Treating Comm ents Source Name Type Date Date Clinician Aripipra Propensi Active Anxiety Unive rs zole ty to 2- ity of adverse 00:00: [place] reaction 00 Medical s Branch ARIPIPRA DRUG Active Anxiety Univers ZOLE INGREDI 2- ity of 00:00: [place] 00 Medical Branch Social History Social Habit Start Date Stop Date Quantity Comments Source Exposure to 2022-02-14 2022-02-24 Not sure [facility] SARS-CoV-2 00:00:00 14:05:[address] [facility] (event) Branch Alcohol intake 2022-02-24 2022-02-24 Current [facility] 00:00:00 00:00:00 non-drinker of [facility] alcohol (finding) [place] Tobacco use and 2022-02-16 2022-02-16 Smokeless tobacco Un iversity of exposure 00:00:00 00:00:00 non-user [facility] Sex Assigned At [birth year] Universit y of 00:00:00 00:00:00 [facility] Smoking Status Start Date Stop Date Source Never smoked tobacco [facility] Medications Ordered Filled Start Stop Current Ordering Indication Dosage Frequency Signature Comments Components Source Medication Medication Date Date Medication? Clinician (SIG) Name Name sodium 2021- No [id number] 30mg 30 mg, U taina hyaluronate 02-24 9109 Intra-riley i ty of (viscosup) 19:15: 19:12 Richard sabillon (ORTHOVISC) 00 :00 ONCE, 1 Medic al injection dose, On Branch 30 mg Jennifer 02/24/22 at 1415, Routine sodium 2021- No [id number] 30mg Uni vers hyaluronate 02-2409 ity of (viscosup) 19:15: 19:12 [place] (ORTHOVIS) 00 :00 Medical injection Branch 30 mg sodium 2021- No [id number] 30mg 30 mg, U nivers hyaluronate 02-2409 Intra-riley i ty of (viscosup) 19:15: 19:12 Richard sabillon s (ORTHOVIS) 00 :00 ONCE, 1 Medic al injection dose, On Branch 30 mg Jennifer 02/24/22 at 1415, Routine sodium 2021- No [id number] 30mg Uni vers hyaluronate 02-2409 ity of (viscosup) 19:15: 19:12 [place] (ORTHOVIS) 00 :00 Medical injection Branch 30 mg benzonatate Yes [id number] 100mg Take 1 Univers 100 mg 2-21 capsule by ity of capsule 00:00: mouth 3 (three) Medical times Branch daily as needed for Cough. benzonatate Yes [id number] 100mg Take 1 Univers 100 mg 2-21 capsule by ity of capsule 00:00: mouth 3 00 (three) Medical times Branch daily as needed for Cough. benztropine 2020-07 Yes [id number] 1mg Take 1 Univers 1 mg tablet 0-25 tablet by ity of 00:00: mouth 2 00 (two) Medical times Branch daily as needed (tremor). benztropine 2020-07 Yes [id number] 1mg Take 1 Univers 1 mg tablet 0-25 tablet by ity of 00:00: mouth 2 00 (two) Medical times Branch daily as needed (tremor). meloxicam Yes [id number] 7.5mg Take 1 Univers 7.5 mg 9- 9109 tablet by ity of tablet 00:00: mouth [place] 00 daily. Medical Branch meloxicam Yes [id number] 7.5mg Take 1 Univers 7.5 mg 9- 9109 tablet by ity of tablet 00:00: mouth [place] 00 daily. Medical Branch diclofenac Yes 75mg Take 1 Unive rs 75 mg EC 4-23 tablet by ity of tablet 00:00: mouth 2 (two) Medical times Branch daily with meals. diclofenac Yes 75mg Take 1 Unive rs 75 mg EC 4-23 tablet by ity of tablet 00:00: mouth 2 (two) Medical times Branch daily with meals. azithromyci Yes [id number] 250mg Take 1 Univers n 4-20 tablet by ity of (ZITHROMAX 00:00: mouth [place] Z-SEBAS) 250 00 SEE-INSTRU Med ical mg tablet CTIONS. Branch Take 500 mg day 1, then 250 mg days 2 to 5. Nitrofurant Yes [id number] 100mg Take 1 Univers oin&Nit. 4-20 capsule by ity o f Macrocryst 00:00: [place] (MACROBID[place] 00 (two) Medical 100 mg times Branch capsule daily. azithromyci Yes [id number] 250mg Take 1 Univers n 4-20 tablet by ity of (ZITHROMAX 00:00: mouth [place] Z-SEBAS) 250 00 SEE-INSTRU Med ical mg tablet CTIONS. Branch Take 500 mg day 1, then 250 mg days 2 to 5. Nitrofurant Yes [id number] 100mg Take 1 Univers oin&Nit. 4-20 capsule by ity o f [place] 00:[place]: [place] (MACROBID[place] 00 (two) Medical 100 mg times Branch capsule daily. vit 2018-0 Yes 2{capsu Take 2 Univers C/E/Zn/natividad 9-27 le} capsules ity of r/lutein/ze 17:09: [place] mouth [place] axan 07 daily. Medical (PRESERVISI Branch ON AREDS-2 ORAL) vit 2018-0 Yes 2{capsu Take 2 Univers C/E/Zn/natividad 9-27 le} capsules ity of r/lutein/ze 17:09: by mouth [place] axan 07 daily. Medical (PRESERVISI Branch ON AREDS-2 ORAL) bromphenira 2016- Yes Univer s mine-pseudo - ity of ephedrine-D 00:00: [facility] (BROMFED Medical DM) 2-30-10 Branch mg/5 mL syrup bromphenira 2015-07 Yes Univer s mine-pseudo 1-22 ity of ephedrine-D 00:00: [place] M (BROMFED 00 Medical DM) 2-30-10 Branch mg/5 mL syrup atorvastati 2015-07 Yes Univer s n (LIPITOR) [...] 40 8-27 ity of mg capsule 00:00: [address] Vital Signs Vital Name Observation Time Observation Value Comments Source Systolic blood 2022-02-24 19:10:00 86 mm[Hg] Univer sity [facility] Diastolic blood 2022-02-24 19:10:00 43 mm[Hg] Migdalia rae [facility] Heart rate 2022-02-24 19:10:00 71 /min [facility] Body weight 2022-02-24 19:10:00 56.246 kg [facility] BMI 2022-02-24 19:10:00 25.04 kg/m2 [facility] Procedures This patient has no known procedures. Encounters Start End Encounter Admission Attending Care Care Encounter Source Date/Time Date/Time Type Type Clinicians Facility Department ID 2022-03-11 2022-03-11 [id number] 10:00:00 10:00:00 [id number]22[facility]02-24 [facility] [id number] Univers 14:30:00 14:45:00 Visit [facility] [id number] it y [facility] [id number] Asael as LAURA?BLEA [id number] [address] MEDICAL OFFICE BUILDING 2022-02-24 2022-02-24 Outpatient Cj [facility]ENN[facility] [id number] Univers 14:30:00 14:30:00 JONATHAN [facility] 2021-05-13 2021-05-16 Inpatient AHMAD, [facility] [id number] [address] [place] 00:00:00 00:00:00 JUNG 614 Method i 2021-01-22 2021-01-24 Outpatient VIV, [facility] [id number] [place] 00:00:00 00:00:00 SARAH 205 Method i 2020-12-10 2020-12-12 Inpatient VIV, [facility] [id number] [address] [place] 00:00:00 00:00:00 SARAH 351 Method i 2020-10-28 2020-10-28 Outpatient Raju_P [facility]G MMG [id number] [place] 11:38:00 11:38:00 0414 Medical Group 2020-02-28 2020-02-28 Telephone [facility] [id number] 00:00:00 00:00:00 Chandrakant Crespo [place] [id number] Surgical [id number] Specialti [id number] es [address] 2020-02-27 2020-02-27 [facility] [id number] 08:32:08 23:59:00 Encounter Chandrakant Crespo [facility] [id number] Surgical [id number] Specialti [id number] es [address] 2020-02-27 2020-02-27 Office [facility] [id number] 08:10:32 08:49:41 Visit Chandrakant Crespo [place] [id number] Surgical [id number] Specialti [id number] es [address] Results Test Description Test Time Test Comments Results Result Comments Source SARS-CoV-2 (COVID-19) RNA [Presence] in Respiratory sp ecimen by 2021-05-14 02:03:05 NIVIA with probe detection Test Item Value Reference Range Interpretation Comme nts SARS-CoV-2 (COVID-19) RNA [Presence] in Respiratory Not detected No t-Detected specimen by NIVIA with probe detection (test code = 55404-7) Whether patient is employed in a healthcare setting (test code = 12592-4) Whether the patient has symptoms related to condition of interest (test code = 90851-9) Patient was hospitalized because of this condition (test code = 14600-8) Whether the patient was admitted to intensive care unit (ICU) for condition of interest (test code = 27916-8) Whether patient resides in a congregate care setting (test code = 00394-5) SARS-CoV-2 (COVID-19) RNA [Presence] in Respiratory specimen by NIVIA with probe [id number] 20:51:54 Test Item Value Reference Range Interpretation Comments SARS-CoV-2 (COVID-19) RNA Not detected Not-Detected [Presence] in Respiratory specimen by NIVIA with probe detection (test code = 02653-7) Whether patient is employed in a healthcare setting (test code = 79654-4) Whether the patient has symptoms related to condition of interest (test code = 16386-1) Patient was hospitalized because of this condition (test code = 26895-2) Whether the patient was admitted to intensive care unit (ICU) for condition of interest (test code = 97645-0) Whether patient resides in a congregate care setting (test code = 17221-9) SARS-CoV-2 (COVID-19) RNA [Presence] in Respiratory specimen by NIVIA with probe [id number] 22:15:41 Test Item Value Reference Range Interpretation Comments SARS-CoV-2 (COVID-19) RNA Not detected Not-Detected [Presence] in Respiratory specimen by NIVIA with probe detection (test code = 68118-4) Whether patient is employed in a healthcare setting (test code = 53040-9) Whether the patient has symptoms related to condition of interest (test code = 32833-0) Patient was hospitalized because of this condition (test code = 82412-2) Whether the patient was admitted to intensive care unit (ICU) for condition of interest (test code = 31671-9) Whether patient resides in a congregate care setting (test code = 93396-6) SARS-CoV-2 (COVID-19) RNA [Presence] in Respiratory specimen by NIVIA with probe [id number] 19:37:15 Test Item Value Reference Range Interpretation Comments SARS-CoV-2 (COVID-19) RNA Not detected Not-Detected [Presence] in Respiratory specimen by NIVIA with probe detection (test code = 92469-2) Whether patient is employed in a healthcare setting (test code = 39570-4) Whether the patient has symptoms related to condition of interest (test code = 22203-4) Patient was hospitalized because of this condition (test code = 79794-8) Whether the patient was admitted to intensive care unit (ICU) for condition of interest (test code = 23071-9) Whether patient resides in a congregate care setting (test code = 91879-9)
--- NOTE | 2022-02-26 14:17 | RAD REPORT ---
EXAM DESCRIPTION: USExtremity Venous Uni Ltd02/26/2022 2:07 pm CLINICAL HISTORY: left leg swelling. COMPARISON: None FINDINGS: Left common femoral, superficial femoral, popliteal and posterior tibial veins are compre ssible and demonstrate augmentation. Doppler demonstrates good flow. Grayscale, color and spectral analysis performed on all vessels IMPRESSION: No evidence of deep venous thrombosis involving the left lower extremity.
--- NOTE | 2022-02-26 14:28 | ER ---
Nurse's Notes [facility] Name: Veronica Hannah Age: 71 yrs Sex: Female : 1950 Arrival Date: 02/26/2022 Time: 12:41 Bed 6 Private MD: Marianne Sotelo Diagnosis: Localized edema Presentation: 02/26 12:55 Chief complaint: Patient states: Left foot swelling X 2 days. Coronavirus screen: At ld1 this time, the client does not indicate any symptoms associated with coronavirus-19. Ebola Screen: No symptoms or risks identified at this time. Initial Sepsis Screen: Does the patient meet any 2 criteria? No. Patient's initial sepsis screen is negative. Does the patient have a suspected source of infection? No. Patient's initial sepsis screen is negative. Risk Assessment: Do you want to hurt yourself or someone else? Patient reports no desire to harm self or others. Onset of symptoms was February 26, 2022. 12:55 Method Of Arrival: Wheelchair ld1 12:55 Acuity: BALJIT 3 ld1 Triage Assessment: 12:56 General: Appears in no apparent distress. comfortable, Behavior is calm, cooperative, ld1 appropriate for age. Pain: Denies pain. EENT: No signs and/or symptoms were reported regarding the EENT system. Neuro: Level of Consciousness is awake, alert, obeys commands, Oriented to person, place, time, situation. Cardiovascular: Capillary refill < 3 seconds Patient's skin is warm and dry. Respiratory: Airway is patent Respiratory effort is even, unlabored. GI: Abdomen is round non-distended. : No signs and/or symptoms were reported regarding the genitourinary system. Derm:. Musculoskeletal: Swelling present in left leg. Historical: - Allergies: 12:56 No Known Allergies; ld1 - PMHx: 12:56 Asthma; breast cancer; Cerebral Palsy; Hypertension; Hypothyroidism; ld1 - PSHx: 12:56 B mastectomy; L eye SX; ld1 - Immunization history:: Adult Immunizations up to date, Client reports receiving the 2nd dose of the Covid vaccine. - Social history:: Smoking status: Patient denies any tobacco usage or history of. Patient/guardian denies using alcohol. Screenin:00 Abuse screen: Denies threats or abuse. Denies injuries from another. Nutritional jh6 screening: No deficits noted. Tuberculosis screening: No symptoms or risk factors identified. Fall Risk Gait- Impaired (20 pts.). Assessment: 13:00 General: Appears in no apparent distress. Behavior is calm, cooperative. Pain: Denies jh6 pain. 13:00 Derm: Skin is intact, Reports increased swelling starting yestreday. jh6 14:00 Reassessment: No changes from previously documented assessment. Patient and/or family jg9 updated on plan of care and expected duration. Pain level reassessed. Patient is alert, oriented x 3, equal unlabored respirations, skin warm/dry/pink. Vital Signs: 12:55 BP 111 / 52; Pulse 64; Resp 18; Temp 98.2(TE); Pulse Ox 99% on R/A; Weight 57.15 kg; ld1 Height 4 ft. 11 in. (149.86 cm); Pain 0/10; 14:30 BP 122 / 72; Pulse 55; Resp 15; Pulse Ox 97% on R/A; Pain 0/10; jg9 12:55 Body Mass Index 25.45 (57.15 kg, 149.86 cm) ld1 ED Course: 12:41 Patient arrived in ED. mr 12:41 Marianne Sotelo is Private Physician. mr 12:56 Triage completed. ld1 12:56 Arm band placed on right wrist. ld1 13:00 Bed in low position. Call light in reach. Side rails up X 1. Adult w/ patient. jh6 13:03 [facility]C [facility] snw 13:03 Luis Phipps MD is Attending Physician. snw 13:36 Alyssia Valentine RN is Primary Nurse. jh6 13:38 No provider procedures requiring assistance completed. jh6 14:09 US Extremity Venous Unilateral Ltd In Process Unspecified. EDMS 14:36 Patient did not have IV access during this emergency room visit. jg9 Administered Medications: No medications were administered Medication: 14:36 VIS not applicable for this client. jg9 Outcome: 14:28 Discharge ordered by . snw 14:36 Discharged to home via wheelchair, with family. jg9 14:36 Condition: stable 14:36 Discharge instructions given to patient, Instructed on discharge instructions, follow up and referral plans. Demonstrated understanding of instructions, follow-up care. 14:36 Patient left the ED. jg9 Signatures: Dispatcher [employer] EDAniya Boyce, OCTAVIO-C TRANSIT PLANNER-[place] Veronica Durbin Lauren, RN RN ld1 Alyssia Valentine, RN RN jh6 Alyssia Cartagena RN RN jg9
--- NOTE | 2022-02-26 14:28 | EDPHYS ---
Physician Documentation [facility] Name: Veronica Hannah Age: 71 yrs Sex: Female : 1950 Arrival Date: 02/26/2022 Time: 12:41 Bed 6 Private MD: Marianne Sotelo ED Physician Luis Phipps HPI: 02/26 13:43 This 71 yrs old Female presents to ER via Wheelchair with complaints of Feet Swelling. snw 13:43 The patient presents with swelling. The complaints affect the left phillips, anterior snw aspect of left ankle and dorsum of left foot. Context: The problem was sustained at home, resulted from a chronic condition, the patient is able to ambulate, pt has been receiving left knee injections. Associated signs and symptoms: The patient has no apparent associated signs or symptoms. Severity of symptoms: At their worst the symptoms were moderate. The patient has experienced similar episodes in the past. The patient has been recently seen by a physician:. Historical: - Allergies: 12:56 No Known Allergies; ld1 - PMHx: 12:56 Asthma; breast cancer; Cerebral Palsy; Hypertension; Hypothyroidism; ld1 - PSHx: 12:56 B mastectomy; L eye SX; ld1 - Immunization history:: Adult Immunizations up to date, Client reports receiving the 2nd dose of the Covid vaccine. - Social history:: Smoking status: Patient denies any tobacco usage or history of. Patient/guardian denies using alcohol. ROS: 13:47 Constitutional: Negative for fever, chills, and weight loss, Eyes: Negative for injury, snw pain, redness, and discharge, ENT: Negative for injury, pain, and discharge, Neck: Negative for injury, pain, and swelling, Cardiovascular: Negative for chest pain, palpitations, and edema, Respiratory: Negative for shortness of breath, cough, wheezing, and pleuritic chest pain, Abdomen/GI: Negative for abdominal pain, nausea, vomiting, diarrhea, and constipation, Back: Negative for injury and pain, : Negative for injury, bleeding, discharge, and swelling, Skin: Negative for injury, rash, and discoloration, Neuro: Negative for headache, weakness, numbness, tingling, and seizure, Psych: Negative for depression, anxiety, suicide ideation, homicidal ideation, and hallucinations. 13:47 MS/extremity: Positive for swelling. Exam: 13:48 Constitutional: This is a well developed, well nourished patient who is awake, alert, snw and in no acute distress. Head/Face: Normocephalic, atraumatic. Eyes: Pupils equal round and reactive to light, extra-ocular motions intact. Lids and lashes normal. Conjunctiva and sclera are non-icteric and not injected. Cornea within normal limits. Periorbital areas with no swelling, redness, or edema. ENT: Nares patent. No nasal discharge, no septal abnormalities noted. Tympanic membranes are normal and external auditory canals are clear. Oropharynx with no redness, swelling, or masses, exudates, or evidence of obstruction, uvula midline. Mucous membranes moist. Neck: Trachea midline, no thyromegaly or masses palpated, and no cervical lymphadenopathy. Supple, full range of motion without nuchal rigidity, or vertebral point tenderness. No Meningismus. Chest/axilla: Normal chest wall appearance and motion. Nontender with no deformity. No lesions are appreciated. Cardiovascular: Regular rate and rhythm with a normal S1 and S2. No gallops, murmurs, or rubs. Normal PMI, no JVD. No pulse deficits. Respiratory: Lungs have equal breath sounds bilaterally, clear to auscultation and percussion. No rales, rhonchi or wheezes noted. No increased work of breathing, no retractions or nasal flaring. Abdomen/GI: Soft, non-tender, with normal bowel sounds. No distension or tympany. No guarding or rebound. No evidence of tenderness throughout. Skin: Warm, dry with normal turgor. Normal color with no rashes, no lesions, and no evidence of cellulitis. Neuro: Awake and alert, GCS 15, oriented to person, place, time, and situation. Cranial nerves II-XII grossly intact. Motor strength 5/5 in all extremities. Sensory grossly intact. Cerebellar exam normal. Normal gait. Psych: Awake, alert, with orientation to person, place and time. Behavior, mood, and affect are within normal limits. 13:48 Musculoskeletal/extremity: Extremities: grossly normal except: swelling. Vital Signs: 12:55 BP 111 / 52; Pulse 64; Resp 18; Temp 98.2(TE); Pulse Ox 99% on R/A; Weight 57.15 kg; ld1 Height 4 ft. 11 in. (149.86 cm); Pain 0/10; 14:30 BP 122 / 72; Pulse 55; Resp 15; Pulse Ox 97% on R/A; Pain 0/10; jg9 12:55 Body Mass Index 25.45 (57.15 kg, 149.86 cm) ld1 MDM: 13:03 Patient medically screened. [facility] 14:29 Data reviewed: vital signs, nurses notes. Data interpreted: Pulse oximetry: on room air snw is 99 %. Interpretation: normal. Counseling: I had a detailed discussion with the patient and/or guardian regarding: the historical points, exam findings, and any diagnostic results supporting the discharge/admit diagnosis, radiology results, the need for outpatient follow up, to return to the emergency department if symptoms worsen or persist or if there are any questions or concerns that arise at home. Special discussion: Based on the history and exam findings, there is no indication for further emergent testing or inpatient evaluation. I discussed with the patient/guardian the need to see the primary care provider for further evaluation of the symptoms. 02/26 13:12 Order name: US Extremity Venous Unilateral Ltd; Complete Time: 14:27 snw Administered Medications: No medications were administered Disposition: 18:53 Co-signature as Attending Physician, Luis Phipps MD I agree with the assessment and [facility] plan of care. Disposition Summary: 02/26/22 14:28 Discharge Ordered Location: Home snw Condition: Stable snw Diagnosis - Localized edema snw Followup: snw - With: Private Physician - When: 1 - 2 days - Reason: Recheck today's complaints, Continuance of care, Re-evaluation by your physician Discharge Instructions: - Discharge Summary Sheet snw - Edema snw - RICE Therapy for Routine Care of Injuries snw Forms: - Medication Reconciliation Form snw - Thank You Letter snw - Antibiotic Education snw - Prescription Opioid Use snw Signatures: Dispatcher [employer] Luis Champagne MD MD cha Waters, Shelly, POLITICAL ORGANIZER-C POLITICAL ORGANIZER-Csnw Rhianna Robledo, RN RN ld1
[2022-02-26 14:51] VITALS: TEMP 98.2
[2022-02-26 14:54] VITALS: BP 122/72; O2SAT 97
== END 2022-02-26 14:36 | disposition home or self-care (01) ==
LOC: ER 12:37
DX: R60.0 Localized edema (principal); I10 Essential (primary) hypertension; Z85.3 Personal history of malignant neoplasm of breast; Z90.13 Acquired absence of bilateral breasts and nipples
CPT/HCPCS: 93971; 99283

== ENCOUNTER 2022-12-13 16:42 | Emergency (ER) | payer OTHER ==
--- OUTSIDE RECORDS SUMMARY | 2022-12-13 16:48 | XMS REPORT | Continuity of Care Document ---
:1950 Author Organization [facility] t Address [address] [place] [address]. [address] [place] [address] Care Team Providers Name Role Phone Marianne Garcia Primary Care Physician [phone] ELIN SIMS Attending Clinician Unavailable JONATHAN KENNEDY Attending Clinician Unavailable Will Marinelli PTA Attending Clinician Unavailable Elin Sims MD Attending Clinician IND[place] DURANT Attending Clinician Unavailable Jonathan Benson Attending Clinician India Durant MD Attending Clinician Doctor Unassigned, [place] Attending Clinician Unavailable Junito KENDRICK, Elan Peña Attending Clinician Sarah Abbott MD Attending Clinician Elijah KENDRICK, Liss Conti Attending Clinician LIGIA WASHINGTON Attending Clinician Unavailable Ligia Armas Attending Clinician Lab, Ang - Db Attending Clinician Unavailable JUNG COVINGTON Attending Clinician Unavailable MD JUNG COVINGTON Attending Clinician Unavailable Luis Carlos Vaughn MD Attending Clinician MADELEINE SEBASTIAN Attending Clinician Unavailable MADELEINE SEBASTIAN Attending Clinician Unavailable MD SARAH ABBOTT Attending Clinician Unavailable IbandreunLorena Echeverriausho F Attending Clinician Raju_P Attending Clinician Unavailable Pob, Adc Lab Main Attending Clinician Unavailable Musa Turner MD Attending Clinician MUSA TURNER Attending Clinician Unavailable ELIN SIMS Admitting Clinician Unavailable SARAH ABBOTT Admitting Clinician Unavailable MIKE PARRISH Admitting Clinician Unavailable LIGIA WASHINGTON Admitting Clinician Unavailable JUNG COVINGTON Admitting Clinician Unavailable MD ABDI ALVES Admitting Clinician Unavailable MD SARAH ABBOTT Admitting Clinician Unavailable Rajlori_Mary Admitting Clinician Unavailable Payers Payer Name Policy Type Policy Number Effective Date Expiration Date Luis young [employer] DUAL [id number] 2022 COORDINATION HMO SNP 00:00:00 MEDICARE PART A \T\ [id number] 1974 B 00:00:00 [employer] COMMERCIAL OUT [id number] 2013 OF NETWORK 00:00:00 [facility] [id number] 2022 (MEDICARE 00:00:00 REPLACEMENT HMO) Problems Condition Condition Condition Status Onset Resolution Last Treating Co mments Source Name Details Category Date Date Treatment Clinician Date Arthritis Arthritis Disease Active 2021-07 Met hodi of left of left 0-14 st knee knee 00:00: Hospita 00 l 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 0-29 st 00:00: Hospita 00 l Dysarthria Dysarthria Disease Active 2020-07 M ethodi 0-28 st 00:00: Hospita 00 l Shortness Shortness Disease Active Met hodi of breath of breath 01-22 st 00:00: Hospita 00 l Essential Essential Disease Active Uni vers hypertensi hypertensi 04-12 it y of on on 00:00: Medical Branch Dyslipidem Dyslipidem Disease Active U nivers ia ia 04-12 ity of 00:00: Medical Branch Syncope Syncope Disease Active Univers and and 04-11 ity of collapse collapse 00:00: Medical Branch Bronchitis Bronchitis Disease Active M ethodi 2 st 00:00: Hospita 00 l Bilateral Bilateral Disease Active 2014-07 Uni vers hand pain hand pain 0-29 ity of 00:00: Medical Branch Allergies, Adverse Reactions, Alerts Allergy Allergy Status Severity Reaction(s) Onset Inactive Treating Comm ents Source Name Type Date Date Clinician Aripipra Propensi Active Anxiety Unive rs zole ty to 2- ity of adverse 00:00: [place] reaction 00 Medical s Branch ARIPIPRA DRUG Active Anxiety Univers ZOLE INGREDI 2- ity of 00:00: Medical Branch Family History Family Member Diagnosis Comments Start Date Stop Date Source Natural father Hypertension [facility] Natural father Heart disease [facility] Natural mother Hypertension [facility] Natural sister [facility] Natural sister Mental illness [facility] Natural brother Alcohol abuse [facility] Natural brother Mental illness [facility] Social History Social Habit Start Date Stop Date Quantity Comments Source Gender identity [facility] Sexual orientation [facility] Exposure to 2022-11-26 2022-12-06 Not sure University of SARS-CoV-2 (event) 00:00:00 11:08:00 [facility] History of Social 2022-10-27 2022-10-[address] function 00:00:00 00:00:00 Hospital Tobacco use and 2022-10-25 2022-10-25 Smokeless [facility] exposure 00:00:00 00:00:00 tobacco non-user Hospital Alcohol intake 2022-10-25 2022-10-25 Current [facility] 00:00:00 00:00:00 non-drinker of Hospital alcohol (finding) Sex Assigned At [birth year] [facility] 00:00:00 00:00:00 Hospital Smoking Status Start Date Stop Date Source Never smoked tobacco [facility] Medications Ordered Filled Start Stop Current Ordering Indication Dosage Frequency Signature Comments Components Source Medication Medication Date Date Medication? Clinician (SIG) Name Name leila Yes 10mg Take 1 Univ ers 10 mg 5-23 tablet by ity of tablet 11:04: mouth in [place] 38 the Medical morning. Branch vit Yes 2{capsu Take 2 Univers C/E/Zn/natividad 5-23 le} capsules ity of r/lutein/ze 11:01: by mouth [place] axan 48 daily. Medical (PRESERVISI Branch ON AREDS-2 ORAL) FLUoxetine Yes 10mg Take 1 Unive rs 10 mg 5-11 capsule by ity of capsule 00:00: mouth in [place] 00 the Medical morning. Branch Takes a 40 mg and a 10 mg for a total of 50 mg daily tc 2022- No [id number] 38.9mCi 38.9 Univ ers 99m-tetrofo 11-22 millicurie i ty of [facility] 16:45: 16:40 , [place] ([facility]) 00 :00 Intravenou Medi demar injection s, ONCE, 1 Bran ch 38.9 dose, On [facility] 11/22/22 at 1145, Routine regadenoson 2022- No [id number] .4mg 0.4 mg, IV Univers (LEXISCAN) 11-22 Push, ity of injection 15:00: 16:34 ONCE, 1 [place] 0.4 mg 00 :00 dose, On [facility] 11/22/22 Branch at 1000, Routine
membership director approving Restricted medication : INDIA DURANT tc 2022- No [id number] 15.3mCi 15.3 Univ ers 99m-tetrofo 11-22 millicurie i ty of smin 14:00: 13:52 , [place] ([facility]) 00 :00 Intravenou Medi demar injection s, ONCE, 1 Bran ch 15.3 dose, On [facility] 11/22/22 at 0900, Routine albuterol Yes 2.5mg Inhale 3 Uni vers 2.5 mg /3 5-01 mL as ity of mL (0.083 00:00: needed. [place] %) 00 Medical nebulizer Branch solution diclofenac 2023-0 Yes [id number] 75mg Take 1 Univers 75 mg EC 4-21 9109 tablet by ity of tablet 00:00: mouth in [address] and 1 tablet in the evening. Take with meals. diclofenac 2023-0 Yes [id number] 75mg Take 1 Univers 75 mg EC 4-21 9109 tablet by ity of tablet 00:00: mouth in [address] and 1 tablet in the evening. Take with meals. diclofenac 2023-0 Yes [id number] 75mg Take 1 Univers 75 mg EC 4-21 9109 tablet by ity of tablet 00:00: mouth in [address] and 1 tablet in the evening. Take with meals. diclofenac 2023-0 Yes [id number] 75mg Take 1 Univers 75 mg EC 4-21 9109 tablet by ity of tablet 00:00: mouth in [address] and 1 tablet in the evening. Take with meals. diclofenac 2023-0 Yes [id number] 75mg Take 1 Univers 75 mg EC 4-21 9109 tablet by ity of tablet 00:00: mouth in [address] and 1 tablet in the evening. Take with meals. diclofenac 2023-0 Yes [id number] 75mg Take 1 Univers 75 mg EC 4-21 9109 tablet by ity of tablet 00:00: mouth in [address] and 1 tablet in the evening. Take with meals. diclofenac 2023-0 Yes [id number] 75mg Take 1 Univers 75 mg EC 4-21 9109 tablet by ity of tablet 00:00: mouth in [address] and 1 tablet in the evening. Take with meals. diclofenac 2023-0 Yes [id number] 75mg Take 1 Univers 75 mg EC 4-21 9109 tablet by ity of tablet 00:00: mouth in [address] and 1 tablet in the evening. Take with meals. diclofenac 2023-0 Yes [id number] 75mg Take 1 Univers 75 mg EC 4-21 9109 tablet by ity of tablet 00:00: mouth in [address] and 1 tablet in the evening. Take with meals. diclofenac 2023-0 Yes [id number] 75mg Take 1 Univers 75 mg EC 4-21 9109 tablet by ity of tablet 00:00: mouth in [address] morning [place] and 1 tablet in the evening. Take with meals. diclofenac 2023-0 Yes [id number] 75mg Take 1 Univers 75 mg EC 4-21 9109 tablet by ity of tablet 00:00: mouth in [address] morning [place] and 1 tablet in the evening. Take with meals. diclofenac 2023-0 Yes [id number] 75mg Take 1 Univers 75 mg EC 4-21 9109 tablet by ity of tablet 00:00: mouth in [address] morning [place] and 1 tablet in the evening. Take with meals. diclofenac 2023-0 Yes [id number] 75mg Take 1 Univers 75 mg EC 4-21 9109 tablet by ity of tablet 00:00: mouth in [address] morning [place] and 1 tablet in the evening. Take with meals. diclofenac 2023-0 Yes [id number] 75mg Take 1 Univers 75 mg EC 4-21 9109 tablet by ity of tablet 00:00: mouth in [address] morning [place] and 1 tablet in the evening. Take with meals. diclofenac 2023-0 Yes [id number] 75mg Take 1 Univers 75 mg EC 4-21 9109 tablet by ity of tablet 00:00: mouth in [address] morning [place] and 1 tablet in the evening. Take with meals. diclofenac 2023-0 Yes [id number] 75mg Take 1 Univers 75 mg EC 4-21 9109 tablet by ity of tablet 00:00: mouth in [address] and 1 tablet in the evening. Take with meals. diclofenac 2023-0 Yes [id number] 75mg Take 1 Univers 75 mg EC 4-21 9109 tablet by ity of tablet 00:00: mouth in [address] and 1 tablet in the evening. Take with meals. budesonide/ 2022-0 Yes 2{puff} Q.5D Inhale 2 Methodi glycopyr/fo 4-[address] rmoterol 12:45: (two) Hospita (BREZTRI 03 times a l AEROSPHERE day. INHL) albuterol 2022-0 Yes 1.25mg Q.5D Take 3 mL M ethodi (ACCUNEB) 14 (1.[address] 1.25 mg/3 12:45: total) by Hos kian mL 03 nebulizati l nebulizer on 2 (two) solution times a day. fexofenadin 0 2022- No 60mg QD Take 1 Met hodi e (SWEETIE) 10-28 05-15 tablet (60 s t 60 MG 00:00: 04:59 mg total) Hospit a tablet 00 :00 by mouth l daily for 30 days. predniSONE 2022-0 2022- No 20mg QD Take 1 Meth ron (DELTASONE) 10-28 04-25 tablet (20 s t 20 mg 00:00: 04:59 mg total) Hospit a tablet 00 :00 by mouth l daily for 10 days. fluoxetine 0 Yes 50mg QD Take 50 mg M ethodi HCl 10-[address] (FLUOXETINE 13:08: daily. 40 H ospita ORAL) 37 mg+ 10 mg l PO daily levothyroxi Yes 88ug QD Take 1 Meth ron ne -13 tablet (88 st (SYNTHROID) 13:08: mcg total) Hospita 88 mcg 37 by mouth l tablet daily. montelukast Yes 10mg QD Take 1 Meth ron (SINGULAIR) -13 tablet (10 st 10 mg 13:08: mg total) Hospita tablet 37 by mouth l daily. folic acid Yes 1mg QD Take 1 mg Me thodi (FOLVITE) 1 10-[address] MG tablet 13:08: daily. Hospit a 37 l benzonatate 0 2022- No 200mg Q6H Take 1 Me thodi (TESSALON) 10-27-[address] 200 MG 00:00: 04:59 (200 mg Hospita capsule 00 :00 total) by l mouth every 6 (six) hours as needed for cough for up to 30 days. amoxicillin 2022-0 2022- No 500mg Q.5D Take 1 Me thodi -pot 10-27 04-[address] clavulanate 00:00: 04:59 (500 mg Ho spita (Augmentin) 00 :00 total) by l 500-125 mg mouth 2 per tablet (two) times a day for 7 days. BREZTRI Yes 1{puff} Inhale 1 Uni vers AEROSPHERE 3-28 Puff in ity of 160-9-4.8 00:00: the [facility]/actuati 00 morning. Medi demar on HFAA Branch meloxicam 2021-07- No 15mg Q24H Take 1 Metho di (Mobic) 15 0-14 04-11 tablet (15 st mg tablet 00:00: 00:00 mg total) Ho spita 00 :00 by mouth l daily as needed (INFLAMMAT ION). sodium 2021- No [id number] 30mg Uni vers hyaluronate 03-11 9109 ity of (viscosup) 14:45: 14:31 [place] (ORTHOVISC) 00 :00 Medical injection Branch 30 mg sodium 2021- No [id number] 30mg 30 mg, U nivers hyaluronate 03-11 9109 Intra-riley i ty of (viscosup) 14:45: 14:31 Richard sabillon s (ORTHOVISC) 00 :00 ONCE, 1 Medic al injection dose, On Branch 30 mg Mon03/11/22 at 0945, Routine sodium 2021- No [id number] 30mg Uni vers hyaluronate 03-11 9109 ity of (viscosup) 14:45: 14:31 [place] (ORTHOVISC) 00 :00 Medical injection Branch 30 mg sodium 2021- No [id number] 30mg 30 mg, U nivers hyaluronate 03-11 9109 Intra-riley i ty of (viscosup) 14:45: 14:31 [place] sabillona s (ORTHOVISC) 00 :00 ONCE, 1 Medic al injection dose, On Branch 30 mg Mon03/11/22 at 0945, Routine benzonatate Yes [id number] 100mg Take 1 Univers 100 mg 2-21 capsule by ity of capsule 00:00: mouth 3 [place] 00 (three) Medical times Branch daily as needed for Cough. benzonatate Yes [id number] 100mg Take 1 Univers 100 mg 2-21 capsule by ity of capsule 00:00: mouth 3 [place] 00 (three) Medical times Branch daily as needed for Cough. benzonatate 2022-0 Yes [id number] 100mg Take 1 Univers 100 mg 2-21 capsule by ity of capsule 00:00: mouth (three) Medical times Branch daily as needed for Cough. benzonatate 2022-0 Yes [id number] 100mg Take 1 Univers 100 mg 2-21 capsule by ity of capsule 00:00: mouth (three) Medical times Branch daily as needed for Cough. benzonatate 2022-0 Yes [id number] 100mg Take 1 Univers 100 mg 2-21 capsule by ity of capsule 00:00: mouth (three) Medical times Branch daily as needed for Cough. benzonatate 2022-0 Yes [id number] 100mg Take 1 Univers 100 mg 2-21 capsule by ity of capsule 00:00: mouth (three) Medical times Branch daily as needed for Cough. benzonatate 2022-0 Yes [id number] 100mg Take 1 Univers 100 mg 2-21 capsule by ity of capsule 00:00: mouth (three) Medical times Branch daily as needed for Cough. benzonatate 2022-0 Yes [id number] 100mg Take 1 Univers 100 mg 2-21 capsule by ity of capsule 00:00: mouth (three) Medical times Branch daily as needed for Cough. benzonatate 2022-0 Yes [id number] 100mg Take 1 Univers 100 mg 2-21 capsule by ity of capsule 00:00: mouth (three) Medical times Branch daily as needed for Cough. benzonatate 2022-0 Yes [id number] 100mg Take 1 Univers 100 mg 2-21 capsule by ity of capsule 00:00: mouth (three) Medical times Branch daily as needed for Cough. benzonatate 2022-0 Yes [id number] 100mg Take 1 Univers 100 mg 2-21 capsule by ity of capsule 00:00: mouth (three) Medical times Branch daily as needed for Cough. benzonatate 2022-0 Yes [id number] 100mg Take 1 Univers 100 mg 2-21 capsule by ity of capsule 00:00: mouth (three) Medical times Branch daily as needed for Cough. benzonatate 2022-0 Yes [id number] 100mg Take 1 Univers 100 mg 2-21 capsule by ity of capsule 00:00: mouth (three) Medical times Branch daily as needed for Cough. benzonatate 2022-0 Yes [id number] 100mg Take 1 Univers 100 mg 2-21 capsule by ity of capsule 00:00: mouth (three) Medical times Branch daily as needed for Cough. benzonatate 2022-0 Yes [id number] 100mg Take 1 Univers 100 mg 2-21 capsule by ity of capsule 00:00: mouth (three) Medical times Branch daily as needed for Cough. benzonatate 2022-0 Yes [id number] 100mg Take 1 Univers 100 mg 2-21 capsule by ity of capsule 00:00: mouth (three) Medical times Branch daily as needed for Cough. benzonatate 2022-0 Yes [id number] 100mg Take 1 Univers 100 mg 2-21 capsule by ity of capsule 00:00: mouth (three) Medical times Branch daily as needed for Cough. benzonatate 2022-0 Yes [id number] 100mg Take 1 Univers 100 mg 2-21 capsule by ity of capsule 00:00: mouth (three) Medical times Branch daily as needed for Cough. benzonatate 2022-0 Yes [id number] 100mg Take 1 Univers 100 mg 2-21 capsule by ity of capsule 00:00: mouth (three) Medical times Branch daily as needed for Cough. benzonatate 2022-0 Yes [id number] 100mg Take 1 Univers 100 mg 2-21 capsule by ity of capsule 00:00: mouth (three) Medical times Branch daily as needed for Cough. benzonatate 2022-0 Yes [id number] 100mg Take 1 Univers 100 mg 2-21 capsule by ity of capsule 00:00: mouth (three) Medical times Branch daily as needed for Cough. benzonatate 2022-0 Yes [id number] 100mg Take 1 Univers 100 mg 2-21 capsule by ity of capsule 00:00: mouth (three) Medical times Branch daily as needed for Cough. benzonatate 2022-0 Yes [id number] 100mg Take 1 Univers 100 mg 2-21 capsule by ity of capsule 00:00: mouth (three) Medical times Branch daily as needed for Cough. benzonatate 2021-0 Yes [id number] 100mg Take 1 Univers 100 mg 2-21 capsule by ity of capsule 00:00: mouth 3 (three) Medical times Branch daily as needed for Cough. benztropine 2020-07 Yes [id number] 1mg Take 1 Univers 1 mg tablet 0-25 tablet by ity of 00:00: mouth (two) Medical times Branch daily as needed (tremor). benztropine 2020-07 Yes [id number] 1mg Take 1 Univers 1 mg tablet 0-25 tablet by ity of 00:00: mouth (two) Medical times Branch daily as needed (tremor). benztropine 2020-07 Yes [id number] 1mg Take 1 Univers 1 mg tablet 0-25 tablet by ity of 00:00: mouth (two) Medical times Branch daily as needed (tremor). benztropine 2020-07 Yes [id number] 1mg Take 1 Univers 1 mg tablet 0-25 tablet by ity of 00:00: mouth (two) Medical times Branch daily as needed (tremor). benztropine 2020-07 Yes [id number] 1mg Take 1 Univers 1 mg tablet 0-25 tablet by ity of 00:00: mouth (two) Medical times Branch daily as needed (tremor). benztropine 2020-07 Yes [id number] 1mg Take 1 Univers 1 mg tablet 0-25 tablet by ity of 00:00: mouth (two) Medical times Branch daily as needed (tremor). benztropine 2020-07 Yes [id number] 1mg Take 1 Univers 1 mg tablet 0-25 tablet by ity of 00:00: mouth (two) Medical times Branch daily as needed (tremor). benztropine 2020-07 Yes [id number] 1mg Take 1 Univers 1 mg tablet 0-25 tablet by ity of 00:00: mouth (two) Medical times Branch daily as needed (tremor). benztropine 2020-07 Yes [id number] 1mg Take 1 Univers 1 mg tablet 0-25 tablet by ity of 00:00: mouth (two) Medical times Branch daily as needed (tremor). benztropine 2020-07 Yes [id number] 1mg Take 1 Univers 1 mg tablet 0-25 tablet by ity of 00:00: mouth (two) Medical times Branch daily as needed (tremor). benztropine 2020-07 Yes [id number] 1mg Take 1 Univers 1 mg tablet 0-25 tablet by ity of 00:00: mouth (two) Medical times Branch daily as needed (tremor). benztropine 2020-07 Yes [id number] 1mg Take 1 Univers 1 mg tablet 0-25 tablet by ity of 00:00: mouth (two) Medical times Branch daily as needed (tremor). benztropine 2020-07 Yes [id number] 1mg Take 1 Univers 1 mg tablet 0-25 tablet by ity of 00:00: mouth (two) Medical times Branch daily as needed (tremor). benztropine 2020-07 Yes [id number] 1mg Take 1 Univers 1 mg tablet 0-25 tablet by ity of 00:00: mouth (two) Medical times Branch daily as needed (tremor). benztropine 2020-07 Yes [id number] 1mg Take 1 Univers 1 mg tablet 0-25 tablet by ity of 00:00: mouth (two) Medical times Branch daily as needed (tremor). benztropine 2020-07 Yes [id number] 1mg Take 1 Univers 1 mg tablet 0-25 tablet by ity of 00:00: mouth (two) Medical times Branch daily as needed (tremor). benztropine 2020-07 Yes [id number] 1mg Take 1 Univers 1 mg tablet 0-25 tablet by ity of 00:00: mouth (two) Medical times Branch daily as needed (tremor). benztropine 2020-07 Yes [id number] 1mg Take 1 Univers 1 mg tablet 0-25 tablet by ity of 00:00: mouth (two) Medical times Branch daily as needed (tremor). benztropine 2020-07 Yes [id number] 1mg Take 1 Univers 1 mg tablet 0-25 tablet by ity of 00:00: mouth (two) Medical times Branch daily as needed (tremor). benztropine 2020-07 Yes [id number] 1mg Take 1 Univers 1 mg tablet 0-25 tablet by ity of 00:00: mouth 2 (two) Medical times Branch daily as needed (tremor). benztropine 2020-07 Yes [id number] 1mg Take 1 Univers 1 mg tablet 0-25 tablet by ity of 00:00: mouth 2 00 (two) Medical times Branch daily as needed (tremor). benztropine 2020-07 Yes [id number] 1mg Take 1 Univers 1 mg tablet 0-25 tablet by ity of 00:00: mouth 2 (two) Medical times Branch daily as needed (tremor). benztropine 2020-07 Yes [id number] 1mg Take 1 Univers 1 mg tablet 0-25 tablet by ity of 00:00: mouth 2 (two) Medical times Branch daily as needed (tremor). benztropine 2020-07 Yes [id number] 1mg Take 1 Univers 1 mg tablet 0-25 tablet by ity of 00:00: mouth 2 (two) Medical times Branch daily as needed (tremor). meloxicam Yes [id number] 7.5mg Take 1 Univers 7.5 mg 9-08 9109 tablet by ity of tablet 00:00: mouth [place] 00 daily. [facility] meloxicam 0 Yes [id number] 7.5mg Take 1 Univers 7.5 mg 9-08 9109 tablet by ity of tablet 00:00: mouth [place] 00 daily. [facility] meloxicam 0 Yes [id number] 7.5mg Take 1 Univers 7.5 mg 9-08 9109 tablet by ity of tablet 00:00: mouth [place] 00 daily. [facility] meloxicam 0 Yes [id number] 7.5mg Take 1 Univers 7.5 mg 9-08 9109 tablet by ity of tablet 00:00: mouth [place] 00 daily. [facility] meloxicam 0 Yes [id number] 7.5mg Take 1 Univers 7.5 mg 9-08 9109 tablet by ity of tablet 00:00: mouth [place] 00 daily. [facility] meloxicam 0 Yes [id number] 7.5mg Take 1 Univers 7.5 mg 9-08 9109 tablet by ity of tablet 00:00: mouth [place] 00 daily. [facility] meloxicam 2020-0 Yes [id number] 7.5mg Take 1 Univers 7.5 mg 9-08 9109 tablet by ity of tablet 00:00: mouth [place] 00 daily. [facility] meloxicam 2020-0 Yes [id number] 7.5mg Take 1 Univers 7.5 mg 9-08 9109 tablet by ity of tablet 00:00: mouth [place] 00 daily. [facility] meloxicam 2020-0 Yes [id number] 7.5mg Take 1 Univers 7.5 mg 9-08 9109 tablet by ity of tablet 00:00: mouth [place] 00 daily. [facility] meloxicam 2020-0 Yes [id number] 7.5mg Take 1 Univers 7.5 mg 9-08 9109 tablet by ity of tablet 00:00: mouth [place] 00 daily. [facility] meloxicam 2020-0 Yes [id number] 7.5mg Take 1 Univers 7.5 mg 9-08 9109 tablet by ity of tablet 00:00: mouth [place] 00 daily. [facility] meloxicam 2020-0 Yes [id number] 7.5mg Take 1 Univers 7.5 mg 9-08 9109 tablet by ity of tablet 00:00: mouth [place] 00 daily. [facility] meloxicam 2020-0 Yes [id number] 7.5mg Take 1 Univers 7.5 mg 9-08 9109 tablet by ity of tablet 00:00: mouth [place] 00 daily. [facility] meloxicam 2020-0 Yes [id number] 7.5mg Take 1 Univers 7.5 mg 9-08 9109 tablet by ity of tablet 00:00: mouth [place] 00 daily. [facility] meloxicam 2020-0 Yes [id number] 7.5mg Take 1 Univers 7.5 mg 9-08 9109 tablet by ity of tablet 00:00: mouth [place] 00 daily. [facility] meloxicam 2020-0 Yes [id number] 7.5mg Take 1 Univers 7.5 mg 9-08 9109 tablet by ity of tablet 00:00: mouth [place] 00 daily. [facility] meloxicam 2020-0 Yes [id number] 7.5mg Take 1 Univers 7.5 mg 9-08 9109 tablet by ity of tablet 00:00: mouth [place] 00 daily. [facility] meloxicam 2020-0 Yes [id number] 7.5mg Take 1 Univers 7.5 mg 9-08 9109 tablet by ity of tablet 00:00: mouth [place] 00 daily. [facility] meloxicam 2020-0 Yes [id number] 7.5mg Take 1 Univers 7.5 mg 9-08 9109 tablet by ity of tablet 00:00: mouth [place] 00 daily. [facility] meloxicam 2020-0 Yes [id number] 7.5mg Take 1 Univers 7.5 mg 9-08 9109 tablet by ity of tablet 00:00: mouth [place] 00 daily. [facility] meloxicam 2020-0 Yes [id number] 7.5mg Take 1 Univers 7.5 mg 9-08 9109 tablet by ity of tablet 00:00: mouth [place] 00 daily. [facility] meloxicam 2020-0 Yes [id number] 7.5mg Take 1 Univers 7.5 mg 9-08 9109 tablet by ity of tablet 00:00: mouth [place] 00 daily. [facility] meloxicam 2020-0 Yes [id number] 7.5mg Take 1 Univers 7.5 mg 9-08 9109 tablet by ity of tablet 00:00: mouth [place] 00 daily. [facility] meloxicam 2020-0 Yes [id number] 7.5mg Take 1 Univers 7.5 mg 9-08 9109 tablet by ity of tablet 00:00: mouth [place] 00 daily. [facility] Branch diclofenac 1-0 Yes 75mg Take 1 Unive rs 75 mg EC 4-23 tablet by ity of tablet 00:00: mouth (two) Medical times Branch daily with meals. diclofenac 2021-0 Yes 75mg Take 1 Unive rs 75 mg EC 4-23 tablet by ity of tablet 00:00: mouth 2 (two) Medical times Branch daily with meals. diclofenac 2021-0 Yes 75mg Take 1 Unive rs 75 mg EC 4-23 tablet by ity of tablet 00:00: mouth 2 (two) Medical times Branch daily with meals. diclofenac 2021-0 Yes 75mg Take 1 Unive rs 75 mg EC 4-23 tablet by ity of tablet 00:00: mouth 2 (two) Medical times Branch daily with meals. diclofenac 2021-0 Yes 75mg Take 1 Unive rs 75 mg EC 4-23 tablet by ity of tablet 00:00: mouth 2 (two) Medical times Branch daily with meals. diclofenac 2020-0 Yes 75mg Take 1 Unive rs 75 mg EC 4-23 tablet by ity of tablet 00:00: mouth 2 (two) Medical times Branch daily with meals. diclofenac 2020-0 Yes 75mg Take 1 Unive rs 75 mg EC 4-23 tablet by ity of tablet 00:00: mouth (two) Medical times Branch daily with meals. diclofenac 2020-0 2023- No 75mg Take 1 Univ ers 75 mg EC 4-23 04-21 tablet by ity o f tablet 00:00: 00:00 mouth 2 00 :00 (two) Medical times Branch daily with meals. azithromyci 0 Yes [id number] 250mg Take 1 [facility] n 4-20 tablet by ity of (ZITHROMAX 00:00: mouth [place] Z-SEBAS) 250 00 SEE-INSTRU Med ical mg tablet CTIONS. Branch Take 500 mg day 1, then 250 mg days 2 to 5. Nitrofurant 2020-0 Yes [id number] 100mg Take 1 [facility] oin&Nit. 4-20 capsule by [place] [place] ([place]CR[place] (two) Medical 100 mg times Branch capsule daily. azithromyci 2020-0 Yes [id number] 250mg Take 1 [facility] n 4-20 tablet by ity of (ZITHROMAX 00:00: mouth [place] Z-SEBAS) 250 00 SEE-INSTRU Med ical mg tablet CTIONS. Branch Take 500 mg day 1, then 250 mg days 2 to 5. Nitrofurant 2020-0 Yes [id number] 100mg Take 1 [facility] oin&Nit. 4-20 capsule by [facility] o [place] 00:[place]: [place] ([place]CR[place] 00 (two) Medical 100 mg times Branch capsule daily. azithromyci 2020-0 Yes [id number] 250mg Take 1 [facility] n 4-20 tablet by ity of (ZITHROMAX 00:00: mouth [place] Z-SEBAS) 250 00 SEE-INSTRU Med ical mg tablet CTIONS. Branch Take 500 mg day 1, then 250 mg days 2 to 5. Nitrofurant 2020-0 Yes [id number] 100mg Take 1 [facility] oin&Nit. 4-20 capsule by ity o [place] 00:[place]: [place] ([place]CROBID[place] 00 (two) Medical 100 mg times Branch capsule daily. azithromyci 2020-0 Yes [id number] 250mg Take 1 [facility] n 4-20 tablet by ity of (ZITHROMAX 00:00: mouth [place] Z-SEBAS) 250 00 SEE-INSTRU Med ical mg tablet CTIONS. Branch Take 500 mg day 1, then 250 mg days 2 to 5. Nitrofurant 2020-0 Yes [id number] 100mg Take 1 [facility] oin&Nit. 4-20 capsule by ity o [place] 00:[place]: [place] ([place]CROBID[place] 00 (two) Medical 100 mg times Branch capsule daily. azithromyci 2020-0 Yes [id number] 250mg Take 1 [facility] n 4-20 tablet by ity of (ZITHROMAX 00:00: mouth [place] Z-SEBAS) 250 00 SEE-INSTRU Med ical mg tablet CTIONS. Branch Take 500 mg day 1, then 250 mg days 2 to 5. Nitrofurant 2020-0 Yes [id number] 100mg Take 1 [facility] oin&Nit. 4-20 capsule by ity o [place] 00:[place]: [place] ([place]CROBID[place] 00 (two) Medical 100 mg times Branch capsule daily. azithromyci 2020-0 Yes [id number] 250mg Take 1 [facility] n 4-20 tablet by ity of (ZITHROMAX 00:00: mouth [place] Z-SEBAS) 250 00 SEE-INSTRU Med ical mg tablet CTIONS. Branch Take 500 mg day 1, then 250 mg days 2 to 5. Nitrofurant 2020-0 Yes [id number] 100mg Take 1 [facility] oin&Nit. 4-20 capsule by ity o f [place] 00:[place]: [place] (MACROBID[place] 00 (two) Medical 100 mg times Branch capsule daily. azithromyci 2020-0 Yes [id number] 250mg Take 1 [facility] n 4-20 tablet by ity of (ZITHROMAX 00:00: mouth [place] Z-SEBAS) 250 00 SEE-INSTRU Med ical mg tablet CTIONS. Branch Take 500 mg day 1, then 250 mg days 2 to 5. Nitrofurant 2020-0 Yes [id number] 100mg Take 1 [facility] oin&Nit. 4-20 capsule by ity o f [place] 00:[place]: [place] ([place]CROBID[place] 00 (two) Medical 100 mg times Branch capsule daily. azithromyci 2020-0 Yes [id number] 250mg Take 1 [facility] n 4-20 tablet by ity of (ZITHROMAX 00:00: mouth [place] Z-SEBAS) 250 00 SEE-INSTRU Med ical mg tablet CTIONS. Branch Take 500 mg day 1, then 250 mg days 2 to 5. Nitrofurant 2020-0 Yes [id number] 100mg Take 1 [facility] oin&Nit. 4-20 capsule by ity o f [place] 00:00: [place] (MACROBID) 00 (two) Medical 100 mg times Branch capsule daily. azithromyci 2020-0 Yes [id number] 250mg Take 1 [facility] n 4-20 tablet by ity of (ZITHROMAX 00:00: mouth [place] Z-SEBAS) 250 00 SEE-INSTRU Med ical mg tablet CTIONS. Branch Take 500 mg day 1, then 250 mg days 2 to 5. Nitrofurant 2020-0 Yes [id number] 100mg Take 1 [facility] oin&Nit. 4-20 capsule by ity o f [place] 00:00: [place] ([place]CROBID) 00 (two) Medical 100 mg times Branch capsule daily. azithromyci 2020-0 Yes [id number] 250mg Take 1 [facility] n 4-20 tablet by ity of (ZITHROMAX 00:00: mouth [place] Z-SEBAS) 250 00 SEE-INSTRU Med ical mg tablet CTIONS. Branch Take 500 mg day 1, then 250 mg days 2 to 5. Nitrofurant 2020-0 Yes [id number] 100mg Take 1 [facility] oin&Nit. 4-20 capsule by ity o f [place] 00:00: [place] (MACROBID) 00 (two) Medical 100 mg times Branch capsule daily. azithromyci 2020-0 Yes [id number] 250mg Take 1 [facility] n 4-20 tablet by ity of (ZITHROMAX 00:00: mouth [place] Z-SEBAS) 250 00 SEE-INSTRU Med ical mg tablet CTIONS. Branch Take 500 mg day 1, then 250 mg days 2 to 5. Nitrofurant 2020-0 Yes [id number] 100mg Take 1 [facility] oin&Nit. 4-20 capsule by ity o f [place] 00:00: [place] (MACROBID) 00 (two) Medical 100 mg times Branch capsule daily. azithromyci 2020-0 Yes [id number] 250mg Take 1 [facility] n 4-20 tablet by ity of (ZITHROMAX 00:00: mouth [place] Z-SEBAS) 250 00 SEE-INSTRU Med ical mg tablet CTIONS. Branch Take 500 mg day 1, then 250 mg days 2 to 5. Nitrofurant 2020-0 Yes [id number] 100mg Take 1 [facility] oin&Nit. 4-20 capsule by ity o f [place] 00:00: [place] (MACROBID) 00 (two) Medical 100 mg times Branch capsule daily. azithromyci 2020-0 Yes [id number] 250mg Take 1 [facility] n 4-20 tablet by ity of (ZITHROMAX 00:00: mouth [place] Z-SEBAS) 250 00 SEE-INSTRU Med ical mg tablet CTIONS. Branch Take 500 mg day 1, then 250 mg days 2 to 5. Nitrofurant 2020-0 Yes [id number] 100mg Take 1 [facility] oin&Nit. 4-20 capsule by ity o f [place] 00:00: [place] ([place]CROBID) 00 (two) Medical 100 mg times Branch capsule daily. azithromyci 2020-0 Yes [id number] 250mg Take 1 [facility] n 4-20 tablet by ity of (ZITHROMAX 00:00: mouth [place] Z-SEBAS) 250 00 SEE-INSTRU Med ical mg tablet CTIONS. Branch Take 500 mg day 1, then 250 mg days 2 to 5. Nitrofurant 2020-0 Yes [id number] 100mg Take 1 [facility] oin&Nit. 4-20 capsule by ity o f [place] 00:00: [place] (MACROBID) 00 (two) Medical 100 mg times Branch capsule daily. azithromyci 2020-0 Yes [id number] 250mg Take 1 [facility] n 4-20 tablet by ity of (ZITHROMAX 00:00: mouth [place] Z-SEBAS) 250 00 SEE-INSTRU Med ical mg tablet CTIONS. Branch Take 500 mg day 1, then 250 mg days 2 to 5. Nitrofurant 2020-0 Yes [id number] 100mg Take 1 [facility] oin&Nit. 4-20 capsule by ity o f [place] 00:00: [place] ([place]CROBID) 00 (two) Medical 100 mg times Branch capsule daily. azithromyci 2020-0 Yes [id number] 250mg Take 1 [facility] n 4-20 tablet by ity of (ZITHROMAX 00:00: mouth [place] Z-SEBAS) 250 00 SEE-INSTRU Med ical mg tablet CTIONS. Branch Take 500 mg day 1, then 250 mg days 2 to 5. Nitrofurant 2020-0 Yes [id number] 100mg Take 1 [facility] oin&Nit. 4-20 capsule by ity o f [place] 00:00: mouth 2 [place] ([place]CROBID) 00 (two) Medical 100 mg times Branch capsule daily. azithromyci 2020-0 Yes [id number] 250mg Take 1 [facility] n 4-20 tablet by ity of (ZITHROMAX 00:00: mouth [place] Z-SEBAS) 250 00 SEE-INSTRU Med ical mg tablet CTIONS. Branch Take 500 mg day 1, then 250 mg days 2 to 5. Nitrofurant 2020-0 Yes [id number] 100mg Take 1 [facility] oin&Nit. 4-20 capsule by ity o f [place] 00:00: [place] ([place]CROBID) 00 (two) Medical 100 mg times Branch capsule daily. azithromyci 2020-0 Yes [id number] 250mg Take 1 [facility] n 4-20 tablet by ity of (ZITHROMAX 00:00: mouth [place] Z-SEBAS) 250 00 SEE-INSTRU Med ical mg tablet CTIONS. Branch Take 500 mg day 1, then 250 mg days 2 to 5. Nitrofurant 2020-0 Yes [id number] 100mg Take 1 [facility] oin&Nit. 4-20 capsule by ity o f [place] 00:00: mouth [place] ([place]CROBID) 00 (two) Medical 100 mg times Branch capsule daily. azithromyci 2020-0 Yes [id number] 250mg Take 1 [facility] n 4-20 tablet by ity of (ZITHROMAX 00:00: mouth [place] Z-SEBAS) 250 00 SEE-INSTRU Med ical mg tablet CTIONS. Branch Take 500 mg day 1, then 250 mg days 2 to 5. Nitrofurant 2020-0 Yes [id number] 100mg Take 1 [facility] oin&Nit. 4-20 capsule by ity o f [place] 00:00: [place] ([place]CROBID[place] 00 (two) Medical 100 mg times Branch capsule daily. azithromyci 2020-0 Yes [id number] 250mg Take 1 [facility] n 4-20 tablet by ity of (ZITHROMAX 00:00: mouth [place] Z-SEBAS) 250 00 SEE-INSTRU Med ical mg tablet CTIONS. Branch Take 500 mg day 1, then 250 mg days 2 to 5. Nitrofurant 2020-0 Yes [id number] 100mg Take 1 [facility] oin&Nit. 4-20 capsule by ity o f [place] 00:00: mouth 2 [place] (MACROBID) 00 (two) Medical 100 mg times Branch capsule daily. azithromyci 2020-0 Yes [id number] 250mg Take 1 [facility] n 4-20 tablet by ity of (ZITHROMAX 00:00: mouth [place] Z-SEBAS) 250 00 SEE-INSTRU Med ical mg tablet CTIONS. Branch Take 500 mg day 1, then 250 mg days 2 to 5. Nitrofurant 2020-0 Yes [id number] 100mg Take 1 [facility] oin&Nit. 4-20 capsule by ity o f [place] 00:00: [place] ([place]CROBID) 00 (two) Medical 100 mg times Branch capsule daily. azithromyci 2020-0 Yes [id number] 250mg Take 1 [facility] n 4-20 tablet by ity of (ZITHROMAX 00:00: mouth [place] Z-ESBAS) 250 00 SEE-INSTRU Med ical mg tablet CTIONS. Branch Take 500 mg day 1, then 250 mg days 2 to 5. Nitrofurant 2020-0 Yes [id number] 100mg Take 1 [facility] oin&Nit. 4-20 capsule by ity o f [place] 00:00: mouth [place] (MACROBID) 00 (two) Medical 100 mg times Branch capsule daily. azithromyci 2020-0 Yes [id number] 250mg Take 1 [facility] n 4-20 tablet by ity of (ZITHROMAX 00:00: mouth [place] Z-SEBAS) 250 00 SEE-INSTRU Med ical mg tablet CTIONS. Branch Take 500 mg day 1, then 250 mg days 2 to 5. Nitrofurant 2020-0 Yes [id number] 100mg Take 1 [facility] oin&Nit. 4-20 capsule by ity o f [place] 00:00: mouth [place] (MACROBID) 00 (two) Medical 100 mg times Branch capsule daily. azithromyci 2020-0 Yes [id number] 250mg Take 1 [facility] n 4-20 tablet by ity of (ZITHROMAX 00:00: mouth [place] Z-SEBAS) 250 00 SEE-INSTRU Med ical mg tablet CTIONS. Branch Take 500 mg day 1, then 250 mg days 2 to 5. Nitrofurant 0 Yes [id number] 100mg Take 1 [facility] oin&Nit. 4-20 capsule by ity o f [place] 00:00: [place] 2 [place] (MACROBID[place] 00 (two) Medical 100 mg times Branch capsule daily. vit 2019-0 Yes 2{capsu Take 2 Univers C/E/Zn/natividad 9-27 le} capsules ity of r/lutein/ze 17:09: by mouth [place] 07 daily. Medical (PRESERVISI Branch ON AREDS-2 ORAL) vit 2019-0 Yes 2{capsu Take 2 Univers C/E/Zn/natividad 9-27 le} capsules ity of r/lutein/ze 17:09: by mouth [place] 07 daily. Medical (PRESERVISI Branch ON AREDS-2 ORAL) vit 2019-0 Yes 2{capsu Take 2 Univers C/E/Zn/natividad 9-27 le} capsules ity of r/lutein/ze 17:09: by mouth [place] 07 daily. Medical (PRESERVISI Branch ON AREDS-2 ORAL) vit 2019-0 Yes 2{capsu Take 2 Univers C/E/Zn/natividad 9-27 le} capsules ity of r/lutein/ze 17:09: by mouth [place] 07 daily. Medical (PRESERVISI Branch ON AREDS-2 ORAL) vit 2019-0 Yes 2{capsu Take 2 Univers C/E/Zn/natividad 9-27 le} capsules ity of r/lutein/ze 17:09: by mouth [place] 07 daily. Medical (PRESERVISI Branch ON AREDS-2 ORAL) vit 2019-0 Yes 2{capsu Take 2 Univers C/E/Zn/natividad 9-27 le} capsules ity of r/lutein/ze 17:09: by mouth [place] 07 daily. Medical (PRESERVISI Branch ON AREDS-2 ORAL) vit 2019-0 Yes 2{capsu Take 2 Univers C/E/Zn/natividad 9-27 le} capsules ity of r/lutein/ze 17:09: by mouth [place] 07 daily. Medical (PRESERVISI Branch ON AREDS-2 ORAL) vit 2019-0 Yes 2{capsu Take 2 Univers C/E/Zn/natividad 9-27 le} capsules ity of r/lutein/ze 17:09: by mouth [place] 07 daily. Medical (PRESERVISI Branch ON AREDS-2 ORAL) vit 2019-0 Yes 2{capsu Take 2 Univers C/E/Zn/natividad 9-27 le} capsules ity of r/lutein/ze 17:09: by mouth [place] 07 daily. Medical (PRESERVISI Branch ON AREDS-2 ORAL) vit 2019-0 Yes 2{capsu Take 2 Univers C/E/Zn/natividad 9-27 le} capsules ity of r/lutein/ze 17:09: by mouth [place] 07 daily. Medical (PRESERVISI Branch ON AREDS-2 ORAL) vit 2019-0 Yes 2{capsu Take 2 Univers C/E/Zn/natividad 9-27 le} capsules ity of r/lutein/ze 17:09: by mouth [place] 07 daily. Medical (PRESERVISI Branch ON AREDS-2 ORAL) vit 2019-0 Yes 2{capsu Take 2 Univers C/E/Zn/natividad 9-27 le} capsules ity of r/lutein/ze 17:09: by mouth [place] 07 daily. Medical (PRESERVISI Branch ON AREDS-2 ORAL) vit 2019-0 Yes 2{capsu Take 2 Univers C/E/Zn/natividad 9-27 le} capsules ity of r/lutein/ze 17:09: by mouth [place] 07 daily. Medical (PRESERVISI Branch ON AREDS-2 ORAL) vit 2019-0 Yes 2{capsu Take 2 Univers C/E/Zn/natividad 9-27 le} capsules ity of r/lutein/ze 17:09: by mouth [place] 07 daily. Medical (PRESERVISI Branch ON AREDS-2 ORAL) vit 2019-0 Yes 2{capsu Take 2 Univers C/E/Zn/natividad 9-27 le} capsules ity of r/lutein/ze 17:09: by mouth [place] 07 daily. Medical (PRESERVISI Branch ON AREDS-2 ORAL) vit 2019-0 Yes 2{capsu Take 2 Univers C/E/Zn/natividad 9-27 le} capsules ity of r/lutein/ze 17:09: by mouth [place] 07 daily. Medical (PRESERVISI Branch ON AREDS-2 ORAL) vit 2019-0 Yes 2{capsu Take 2 Univers C/E/Zn/natividad 9-27 le} capsules ity of r/lutein/ze 17:09: by mouth [place] 07 daily. Medical (PRESERVISI Branch ON AREDS-2 ORAL) vit 2019-0 Yes 2{capsu Take 2 Univers C/E/Zn/natividad 9-27 le} capsules ity of r/lutein/ze 17:09: by mouth [place] 07 daily. Medical (PRESERVISI Branch ON AREDS-2 ORAL) vit 2019-0 Yes 2{capsu Take 2 Univers C/E/Zn/natividad 9-27 le} capsules ity of r/lutein/ze 17:09: by mouth [place] 07 daily. Medical (PRESERVISI Branch ON AREDS-2 ORAL) vit 2019-0 Yes 2{capsu Take 2 Univers C/E/Zn/natividad 9-27 le} capsules ity of r/lutein/ze 17:09: by mouth [place] 07 daily. Medical (PRESERVISI Branch ON AREDS-2 ORAL) vit 2019-0 Yes 2{capsu Take 2 Univers C/E/Zn/natividad 9-27 le} capsules ity of r/lutein/ze 17:09: by mouth [place] 07 daily. Medical (PRESERVISI Branch ON AREDS-2 ORAL) vit 2019-0 Yes 2{capsu Take 2 Univers C/E/Zn/natividad 9-27 le} capsules ity of r/lutein/ze 17:09: by mouth [place] 07 daily. Medical (PRESERVISI Branch ON AREDS-2 ORAL) vit 2019-0 Yes 2{capsu Take 2 Univers C/E/Zn/natividad 9-27 le} capsules ity of r/lutein/ze 17:09: by mouth [place] 07 daily. Medical (PRESERVISI Branch ON AREDS-2 ORAL) bromphenira 2015-07 Yes [place] kelsey mine-pseudo 1-22 ity of ephedrine-D 00:00: [facility] (BROMFED Medical DM) 2-30-10 Branch mg/5 mL syrup bromphenira 2015-07 Yes [place] kelsey mine-pseudo 1-22 ity of ephedrine-D 00:00: [facility] (BROMFED 00 Medical DM) 2-30-10 Branch mg/5 mL syrup bromphenira 2015- Yes [place] kelsey mine-pseudo 1-22 ity of ephedrine-D 00:00: [facility] (BROMFED 00 Medical DM) 2-30-10 Branch mg/5 mL syrup bromphenira 2015- Yes [place] kelsey mine-pseudo 1-22 ity of ephedrine-D 00:00: [facility] (BROMFED 00 Medical DM) 2-30-10 Branch mg/5 mL syrup bromphenira 2015-07 Yes [place] kelsey mine-pseudo 1-22 ity of ephedrine-D 00:00: [facility] (BROMFED 00 Medical DM) 2-30-10 Branch mg/5 mL syrup bromphenira 2016- Yes [place] kelsey mine-pseudo 1-22 ity of ephedrine-D 00:00: [facility] (BROMFED 00 Medical DM) 2-30-10 Branch mg/5 mL syrup bromphenira 2016- Yes [place] k[place] mine-pseudo 1-22 ity of ephedrine-D 00:00: [facility] (BROMFED 00 Medical DM) 2-30-10 Branch mg/5 mL syrup bromphenira 2016- Yes [place] k[place] mine-pseudo 1-22 ity of ephedrine-D 00:00: [facility] (BROMFED 00 Medical DM) 2-30-10 Branch mg/5 mL syrup bromphenira 2015- Yes [place] kelsey mine-pseudo 1-22 ity of ephedrine-D 00:00: [facility] (BROMFED 00 Medical DM) 2-30-10 Branch mg/5 mL syrup bromphenira 2016- Yes [place] mine-pseudo 1-22 ity of ephedrine-D 00:00: [facility] (BROMFED 00 Medical DM) 2-30-10 Branch mg/5 mL syrup bromphenira 2016 Yes [place] k[place] mine-pseudo 1-22 ity of ephedrine-D 00:00: [facility] (BROMFED 00 Medical DM) 2-30-10 Branch mg/5 mL syrup bromphenira 2016- Yes [place] k[place] mine-pseudo 1-22 ity of ephedrine-D 00:00: [facility] (BROMFED 00 Medical DM) 2-30-10 Branch mg/5 mL syrup bromphenira 2016- Yes [place] k[place] mine-pseudo 1-22 ity of ephedrine-D 00:00: [facility] (BROMFED 00 Medical DM) 2-30-10 Branch mg/5 mL syrup bromphenira 2015- Yes [place] k[place]sey mine-pseudo 1-22 ity of ephedrine-D 00:00: [facility] (BROMFED 00 Medical DM) 2-30-10 Branch mg/5 mL syrup bromphenira 2016- Yes [place] kelsey mine-pseudo 1-22 ity of ephedrine-D 00:00: [facility] (BROMFED 00 Medical DM) 2-30-10 Branch mg/5 mL syrup bromphenira 2016 Yes [place] kelsey mine-pseudo 1-22 ity of ephedrine-D 00:00: [facility] (BROMFED 00 Medical DM) 2-30-10 Branch mg/5 mL syrup bromphenira 2015-07 Yes [place] kelsey mine-pseudo 1-22 ity of ephedrine-D 00:00: [facility] (BROMFED 00 Medical DM) 2-30-10 Branch mg/5 mL syrup bromphenira 2015-07 Yes [place] kel[place] mine-pseudo 1-22 ity of ephedrine-D 00:00: [facility] (BROMFED 00 Medical DM) 2-30-10 Branch mg/5 mL syrup bromphenira 2015-07 Yes [place] k[place] mine-pseudo 1-22 ity of ephedrine-D 00:00: [facility] (BROMFED 00 Medical DM) 2-30-10 Branch mg/5 mL syrup bromphenira 2015-07 Yes [place] k[place] mine-pseudo 1-22 ity of ephedrine-D 00:00: [facility] (BROMFED 00 Medical DM) 2-30-10 Branch mg/5 mL syrup bromphenira 2015-07 Yes [place] k[place] mine-pseudo 1-22 ity of ephedrine-D 00:00: [facility] (BROMFED 00 Medical DM) 2-30-10 Branch mg/5 mL syrup bromphenira 2015-07 Yes [place] k[place] mine-pseudo 1-22 ity of ephedrine-D 00:00: [facility] (BROMFED 00 Medical DM) 2-30-10 Branch mg/5 mL syrup bromphenira 2015-07 Yes [place] k[place] mine-pseudo 1-22 ity of ephedrine-D 00:00: [facility] (BROMFED 00 Medical DM) 2-30-10 Branch mg/5 mL syrup bromphenira 2015-07 Yes [place] k[place] mine-pseudo 1-22 ity of ephedrine-D 00:00: [facility] (BROMFED 00 Medical DM) 2-30-10 Branch mg/5 mL syrup atorvastati 2015-07 Yes [facility] (LIPITOR) 1-12 ity of 40 mg 00:00: [place] tablet 00 Medical Branch atorvastati 2015-07 Yes Ruiz kelsey n (LIPITOR) 1-12 ity of 40 mg 00:00: [place] tablet 00 Medical Branch atorvastati 2016- Yes Univer s n (LIPITOR) 1-12 ity of 40 mg 00:00: [place] tablet Medical Branch atorvastati 2016- Yes Univer s n (LIPITOR) 1-12 ity of 40 mg 00:00: [place] tablet Medical Branch atorvastati 2016- Yes Univer s n (LIPITOR) 1-12 ity of 40 mg 00:00: [place] tablet Medical Branch atorvastati 2016- Yes Univer s n (LIPITOR) 1-12 ity of 40 mg 00:00: [place] tablet Medical Branch atorvastati 2016- Yes Univer s n (LIPITOR) 1-12 ity of 40 mg 00:00: [place] tablet Medical Branch atorvastati 2016 Yes Univer s n (LIPITOR) 1-12 ity of 40 mg 00:00: [place] tablet Medical Branch atorvastati 2016- Yes Univer s n (LIPITOR) 1-12 ity of 40 mg 00:00: [place] tablet Medical Branch atorvastati 2016- Yes Univer s n (LIPITOR) 1-12 ity of 40 mg 00:00: [place] tablet Medical Branch atorvastati 2016- Yes Univer s n (LIPITOR) 1-12 ity of 40 mg 00:00: [place] tablet Medical Branch atorvastati 2016- Yes Univer s n (LIPITOR) 1-12 ity of 40 mg 00:00: [place] tablet Medical Branch atorvastati 2016- Yes Univer s n (LIPITOR) 1-12 ity of 40 mg 00:00: [place] tablet Medical Branch atorvastati 2016- Yes Univer s n (LIPITOR) 1-12 ity of 40 mg 00:00: [place] tablet Medical Branch atorvastati 2016- Yes Univer s n (LIPITOR) 1-12 ity of 40 mg 00:00: [place] tablet Medical Branch atorvastati 2016- Yes Univer s n (LIPITOR) 1-12 ity of 40 mg 00:00: [place] tablet Medical Branch atorvastati 2016- Yes Univer s n (LIPITOR) 1-12 ity of 40 mg 00:00: [place] tablet Medical Branch atorvastati 2015-07 Yes Univer s [...] tablet 00 Medical Branch amLODIPine 2014-07 Yes 10mg Take 1 Unive rs (NORVASC) 0-10 tablet by ity o f 10 mg 00:00: mouth in [place] tablet 00 the Medical morning. Branch hydrochloro 2014-07 Yes Univer s thiazide [...] 00 Medical tablet Branch levothyroxi 2014-07 Yes [place] s ne 0-06 ity of (SYNTHROID) 00:00: [...] 00 Medical tablet Branch levothyroxi 2014-07 Yes Ruiz s ne 0-06 ity of (SYNTHROID) 00:00: [place] 75 mcg 00 Medical tablet Branch levothyroxi 2014-07 Yes Ruiz s ne 0-06 ity of (SYNTHROID) 00:00: [place] 75 mcg 00 Medical tablet Branch levothyroxi 2014-07 Yes Univcindy s ne 0-06 ity of (SYNTHROID) 00:00: [place] 75 mcg 00 Medical tablet Branch levothyroxi 2014-07 Yes Ruiz s ne 0-06 ity of (SYNTHROID) 00:00: [place] 75 mcg 00 Medical tablet Branch levothyroxi 2014-07 Yes Ruiz s ne 0-06 ity of (SYNTHROID) 00:00: [place] 75 mcg 00 Medical tablet Branch levothyroxi 2014-07 Yes Univcindy s ne 0-06 ity of (SYNTHROID) 00:00: [place] 75 mcg 00 Medical tablet Branch levothyroxi 2014-07 Yes Ruiz kelsey ne 0-06 ity of (SYNTHROID) 00:00: [place] 75 mcg 00 Medical tablet Branch levothyroxi 2014-07 Yes Univcindy s ne 0-06 ity of (SYNTHROID) 00:00: [place] 75 mcg 00 Medical tablet Branch levothyroxi 2014-07 Yes Univcindy s ne 0-06 ity of (SYNTHROID) 00:00: [place] 75 mcg 00 Medical tablet Branch levothyroxi 2014-07 Yes Univcindy s ne 0-06 ity of (SYNTHROID) 00:00: [place] 75 mcg 00 Medical tablet Branch levothyroxi 2014-07 Yes Univcindy s ne 0-06 ity of (SYNTHROID) 00:00: [place] 75 mcg 00 Medical tablet Branch levothyroxi 2014-07 Yes Univer s ne 0-06 ity of (SYNTHROID) 00:00: [place] 75 mcg 00 Medical tablet Branch levothyroxi 2014-07 Yes Univer s ne 0-06 ity of (SYNTHROID) 00:00: [place] 75 mcg 00 Medical tablet Branch levothyroxi 2014-07 Yes 75ug Take 1 Univ ers ne 0-06 tablet by ity of (SYNTHROID) 00:00: mouth [place] 75 mcg 00 every Medical tablet morning. Branch levothyroxi 2014-07 Yes Univer s ne [...] ity of mg capsule 00:00: [place] 00 [facility] Branch FLUoxetine Yes Univers (PROZAC) 40 8-27 ity of mg capsule 00:00: [place] 00 [facility] FLUoxetine Yes Univers (PROZAC) 40 8-27 ity of mg capsule 00:00: [place] 00 [facility] Branch FLUoxetine Yes Univers (PROZAC) 40 8-27 ity of mg capsule 00:00: [place] 00 [facility] FLUoxetine Yes Univers (PROZAC) 40 8-27 ity of mg capsule 00:00: [place] [facility] FLUoxetine Yes Univers (PROZAC) 40 8-27 ity of mg capsule 00:00: [place] 00 [facility] FLUoxetine Yes Univers (PROZAC) 40 8-27 ity of mg capsule 00:00: [place] 00 [facility] FLUoxetine Yes Univers (PROZAC) 40 8-27 ity of mg capsule 00:00: [place] 00 [facility] FLUoxetine Yes Univers (PROZAC) 40 8-27 ity of mg capsule 00:00: [place] [facility] FLUoxetine Yes Univers (PROZAC) 40 8-27 ity of mg capsule 00:00: [place] [facility] FLUoxetine Yes Univers (PROZAC) 40 8-27 ity of mg capsule 00:00: [place] [facility] FLUoxetine Yes Univers (PROZAC) 40 8-27 ity of mg capsule 00:00: [place] [facility] FLUoxetine Yes Univers (PROZAC) 40 8-27 ity of mg capsule 00:00: [place] [facility] FLUoxetine Yes Univers (PROZAC) 40 8-27 ity of mg capsule 00:00: [place] [facility] FLUoxetine Yes Univers (PROZAC) 40 8-27 ity of mg capsule 00:00: [place] [facility] FLUoxetine Yes Univers (PROZAC) 40 8-27 ity of mg capsule 00:00: [place] [facility] FLUoxetine Yes Univers (PROZAC) 40 8-27 ity of mg capsule 00:00: [place] [facility] FLUoxetine Yes Univers (PROZAC) 40 8-27 ity of mg capsule 00:00: [address] FLUoxetine Yes 40mg Take 1 Unive rs (PROZAC) 40 8-27 capsule by it y of mg capsule 00:00: mouth in [place] 00 the Medical morning. Branch FLUoxetine Yes Univers (PROZAC) 40 8-27 ity of mg capsule 00:00: [place] [facility] FLUoxetine Yes Univers (PROZAC) 40 8-27 ity of mg capsule 00:00: [place] [facility] FLUoxetine Yes Univers (PROZAC) 40 8-27 ity of mg capsule 00:00: [address] FLUoxetine Yes Univers (PROZAC) 40 8-27 ity of mg capsule 00:00: [place] [facility] FLUoxetine Yes Univers (PROZAC) 40 8-27 ity of mg capsule 00:00: [address] Vital Signs Vital Name Observation Time Observation Value Comments Source Systolic blood 2022-12-01 15:18:00 153 mm[Hg] Univer sity of pressure [facility] Diastolic blood 2022-12-01 15:18:00 71 mm[Hg] Unive rsity of pressure [place] [facility] Heart rate 2022-12-01 15:18:00 67 /min [facility] Body height 2022-12-01 15:18:00 149.9 cm [facility] Body weight 2022-12-01 15:18:00 59.24 kg [facility] BMI 2022-12-01 15:18:00 26.38 kg/m2 [facility] Systolic blood 2022-11-08 14:23:00 152 mm[Hg] [facility] Diastolic blood 2022-11-08 14:23:00 76 mm[Hg] Unive rsity of pressure [facility] Heart rate 2022-11-08 14:23:00 71 /min [facility] Oxygen saturation in 2022-11-08 14:23:00 94 /min University Arterial blood by [facility] Pulse oximetry Branch Respiratory rate 2022-11-08 14:18:00 19 /min [facility] Body height 2022-11-08 14:18:00 149.9 cm [facility] Body weight 2022-11-08 14:18:00 58.877 kg [facility] BMI 2022-11-08 14:18:00 26.22 kg/m2 [facility] Body height 2022-11-02 18:12:00 149.9 cm [facility] Body weight 2022-11-02 18:12:00 59.058 kg [facility] BMI 2022-11-02 18:12:00 26.30 kg/m2 [facility] Body height 2022-03-11 14:29:00 142.7 cm [facility] Body weight 2022-03-11 14:29:00 56.246 kg [facility] BMI 2022-03-11 14:29:00 27.60 kg/m2 [facility] Systolic blood 2022-10-27 16:27:10 155 mm[Hg] [facility] pressure Diastolic blood 2022-10-27 16:27:10 70 mm[Hg] [facility] pressure Heart rate 2022-10-27 16:27:10 83 /min [facility] Body temperature 2022-10-27 16:27:10 37.56 Tiffanie [facility] Respiratory rate 2022-10-27 16:27:10 19 /min [facility] Oxygen saturation in 2022-10-27 16:27:10 95 /min [facility] Arterial blood by Pulse oximetry Body height 2022-10-25 16:18:00 149.9 cm [facility] Body weight 2022-10-25 16:18:00 55.339 kg [facility] BMI 2022-10-25 16:18:00 24.64 kg/m2 [facility] Procedures Procedure Date / Time Performing Clinician Source Performed NM MYOCARDIUM PERFUSION 2022-11-22 17:15:00 Ravin [facility] STRESS AND REST Medical Branch NUCLEAR STRESS TEST 2022-11-22 17:15:00 Ravin [facility] CARDIOLOGY (DO NOT SCHED) Medica l Branch NUCLEAR STRESS TEST 2022-11-22 17:15:00 Ravin [facility] CARDIOLOGY (DO NOT SCHED) Medica l Branch NM MYOCARDIUM PERFUSION 2022-11-22 17:15:00 Ravin [facility] STRESS AND REST Medical Branch NM MYOCARDIUM PERFUSION 2022-11-22 17:15:00 Ravin [facility] STRESS AND REST Medical Branch NUCLEAR STRESS TEST 2022-11-22 17:15:00 Ravin [facility] CARDIOLOGY (DO NOT SCHED) Medica l Branch NM MYOCARDIUM PERFUSION 2022-11-22 17:15:00 Ravin [facility] STRESS AND REST Medical Branch NUCLEAR STRESS TEST 2022-11-22 17:15:00 Ravin [facility] CARDIOLOGY (DO NOT SCHED) Medica l Branch ASSIGNMENT OF BENEFITS 2022-11-22 13:14:23 Doctor Unassigned, [facility] [place] [facility] HB ECG ROUTINE & RHYTHM 2022-11-08 14:20:55 Ravin [facility] STRIP Medical Branch [facility] PATIENT FINANCIAL 2022-11-02 18:05:55 Doctor Unassigned, [facility] [place] [facility] BASIC METABOLIC PANEL 2022-10-27 08:37:00 [facility] LACTIC ACID LEVEL 2022-10-27 08:37:00 [facility] ESTIMATED GFR 2022-10-27 08:37:00 [facility] CBC WITH PLATELET AND 2022-10-26 11:18:00 [facility] DIFFERENTIAL BASIC METABOLIC PANEL 2022-10-26 11:18:00 [facility] LACTIC ACID LEVEL 2022-10-26 11:18:00 [facility] ESTIMATED GFR 2022-10-26 11:18:[address] [facility] [address] SINUS WO CONTRAST 2022-10-25 23:52:27 [facility] ECG 12-LEAD 2022-10-25 21:44:16 [facility] [place] [facility] CHEST WO CONTRAST 2022-10-25 19:05:34 [facility] [place] XR CHEST 1 VW PORTABLE 2022-10-25 17:42:27 Elan Wild [facility] COVID-19, INFLUENZA A&B, 2022-10-25 17:10:00 [facility] AND RSV QUALITATIVE [place] RT-PCR CBC WITH PLATELET AND 2022-10-25 17:10:00 Elan Wild [facility] DIFFERENTIAL COMPREHENSIVE METABOLIC 2022-10-25 17:10:00 [facility]an [facility] PANEL LACTIC ACID LEVEL 2022-10-25 17:10:00 [facility]an [facility] B NATRIURETIC PEPTIDE 2022-10-25 17:10:00 Elan Wild [facility] TROPONIN T 2022-10-25 17:10:00 [facility] ESTIM[facility] GFR 2022-10-25 17:10:[address] [facility] ECG ED PRELIMINARY 2022-10-25 16:28:03 [facility] INTERPRETATION [place] XR KNEE 3 VW LEFT 2022-04-29 14:06:[address] [facility] XR KNEE AP STANDING 2022-04-29 14:05:22 Liss Nava [facility] BILATERAL AUTHORIZATION FOR RELEASE 2022-04-11 05:01:00 Doctor Unassigned, [facility] [place] [facility] Plan of Care Planned Activity Planned Date Details Comments Source Future Scheduled 2022-12-06 Hepatitis C screening [facility] Test 15:38:32 (procedure) [code = 403581214] Future Scheduled 2022-12-06 SHINGLES VACCINES (1 Met [facility] Test 15:38:32 of 2) [code = SHINGLES VACCINES (1 of 2)] Future Scheduled 2022-12-[address] [facility] Test 15:38:32 SCREENING [code = BREAST CANCER SCREENING] Future Scheduled 2022-12-06 COLONOSCOPY SCREENING [facility] Test 15:38:32 [code = COLONOSCOPY SCREENING] Future Scheduled 2022-12-06 65[facility] Test 15:38:32 VACCINE (2 - PCV) [code = 65+ PNEUMOCOCCAL VACCINE (2 - PCV)] Future Scheduled 2022-12-06 INFLUENZA VACCINE [facility] Test 15:38:32 [code = INFLUENZA VACCINE] Medication 2022-12-19 oxyCODONE-acetaminoph [facility] 05:00:00 en (PERCOCET) 5-325 Medical Branch mg per tablet 2 tablet [code = 6865922] Medication 2022-12-19 tranexamic acid [facility] 05:00:00 (CYKLOKAPRON) 1,000 Medical Branch mg in NaCl 0.9% (NS) 250 mL piggyback [code = 731299043] Medication 2022-12-19 oxyCODONE-acetaminoph [facility] 05:00:00 en (PERCOCET) 5-325 Medical Branch mg per tablet 2 tablet [code = 7852475] Medication 2022-12-19 tranexamic acid [facility] 05:00:00 (CYKLOKAPRON) 1,000 Medical Branch mg in NaCl 0.9% (NS) 250 mL piggyback [code = 049762976] Encounters Start End Encounter Admission Attending Care Care Encounter Source Date/Time Date/Time Type Type Clinicians Facility Department ID 2022-12-01 Outpatient R SIMS [facility] SOR [id number] Univers 16:29:57 ELIN itdarius [facility] 2021-05-18 Emergency [facility] [id number] Univers 09:26:53 ity [facility] 2021-05-16 Emergency [facility] [id number] Univers 23:42:49 ity of [facility] 2021-05-16 Emergency [facility] [id number] Univers 14:05:45 ity [facility] 2022-12-26 2022-12-26 Outpatient jC [facility]ENN[facility]Y [facility] [id number] Univers 14:00:00 14:00:00 [facility] 2022-12-15 2022-12-15 [facility] [id number] Univers 11:00:00 11:00:00 [facility] 2022-12-09 2022-12-09 Ancillary Will Marinelli [facility] 1.2.840. 114 [id number] Univers 10:15:00 11:00:00 Visit Elin Sims 350.1.13.10 ity jacinda [place] [phone] Nj dical [facility] 179 [facility] 2022-12-09 2022-12-09 Out[facility] [id number] Univers 10:15:00 10:15:00 ELIN gloriadarius [facility] 2022-12-02 2022-12-02 Telephone Bethany [facility] 1.2.840.114 [id number] Univers 00:00:00 00:00:00 Elin Crespo HEALTH 350.1.13.10 it y of [place] 4.2.7.2.686 Asael as CHANCE?BLEA [phone] Nj dical KNEY [address] MEDICAL OFFICE BUILDING 2022-12-02 2022-12-02 Prep For Bethany [facility] 1.2.840.114 [id number] Univers 00:00:00 00:00:00 Surgery Elin Crespo HEALTH 350.1.13.10 it y of [place] 4.2.7.2.686 Asael as CHANCE?BLEA [id number] Nj stephany PAZ 198 [facility] OFFICE [facility] 2022-12-01 2022-12-01 Outpatient R [facility] [id number] Univers 10:15:00 10:56:47 JONATHAN ity of [facility] 2022-12-01 2022-12-01 Office [facility] 1.2.840.114 [id number] Univers 10:15:00 10:56:47 Visit Jonathan [facility] 350.1.13.10 it y of [place] 4.2.7.2.686 Asael as CHANCE?BLEA [id number] Nj stephany PAZ 198 [facility] 2022-11-28 2022-11-28 Telephone [facility] 1.2.840.114 [id number] [facility] 00:00:00 00:00:00 Elin Crespo HEALTH 350.1.13.10 it y of [place] 4.2.7.2.686 Asael as CHANCE?BLEA [phone] Nj stephany PAZ 198 [facility] 2022-11-23 2022-11-23 Telephone [facility] 1.2.574.699 [id number] Univers 00:00:00 00:00:00 Qiakarinajun [place] 350.1.13.10 ity of [place].7.2.686 [place] [facility] [id number] Nj dickurtis NAL 059 [facility] 2022-11-22 2022-11-22 [facility] 1.2.840.114 [id number] Univers 08:17:51 08:17:51 Encounter Qiangjun [place] 350.1.13.10 ity of [place].7.2.[place] LIZELLA [phone] [facility] [address] 2022-11-22 2022-11-22 [facility] 1.2.840.114 [id number] Univers 08:17:15 08:17:15 Encounter Qiangjun [place] 350.1.13.10 ity of [place] 4.2.7.2.686 [place] [facility] [id number] [facility] [address] 2022-11-22 2022-11-22 [facility] 1.2.840.114 [id number] Univers 08:16:35 08:16:35 Encounter India HDEZ 350.1.13.10 ity [facility] 4.2.7.2.686 [facility] [id number] [facility] [address] 2022-11-22 2022-11-22 Outpatient [facility] [id number] Univers 08:15:51 08:15:51 QIAKARINASTEPHANIE gloriay o f [facility] 2022-11-22 2022-11-22 [facility] 1.2.840.114 [id number] Univers 08:15:51 08:15:51 Encounter India HDEZ 350.1.13.10 ity of [place] 4.2.7.2.686 [facility] [id number] [facility] [address] 2022-11-22 2022-11-22 Orders Doctor SUSHIL 1.2.840.114 [id number] Univers 00:00:00 00:00:00 Only Unassigned, [place] 350.1.13.10 ity of [place] [facility] 4.2.7.2.686 Asael as [id number] [facility] [address] 2022-11-22 2022-11-22 Telephone [facility] 1.2.840.114 [id number] Univers 00:00:00 00:00:00 [facility] 350.1.13.10 it y of [place] 4.2.7.2.686 Asael as CHANCE?BLEA [phone] Nj stephany [address] MEDICAL OFFICE BUILDING 2022-11-08 2022-11-08 Outpatient R [facility] [id number] Univers 09:20:00 09:37:14 DANIELLESTEPHANIE gloriay o f [facility] 2022-11-08 2022-11-08 Office [facility] 1.2.840.114 [id number] Univers 09:20:00 09:37:14 Visit India HDEZ 350.1.13.10 ity of [facility] 4.2.7.2.686 [place] [phone] Nj dical NAL 059 [facility] 2022-11-04 2022-11-04 Telephone Brent [facility] 1.2.318.989 [id number] Univers 00:00:00 00:00:00 [facility] 350.1.13.10 it y of [place] 4.2.7.2.686 Asael as CHANCE?BLEA [phone] Nj dical JACKSON 198 [facility] OFFICE [facility] 2022-11-02 2022-11-02 Outpatient [facility] [id number] [facility] 13:00:00 14:32:28 ELIN ity [facility] 2022-11-02 2022-11-02 Office Jonathan Kennedy Luis [facility] 1.2.840.114 [id number] Univers 13:00:00 13:15:00 Visit Elin Sims [facility] 350.1.13.10 ity of [place] 4.2.7.2.686 Asael as CHANCE?BLEA [phone] Nj dical JACKSON 198 [facility] OFFICE [facility] 2022-11-02 2022-11-02 Orders Doctor SUSHIL 1.2.840.114 [id number] Univers 00:00:00 00:00:00 Only Unassigned, [place] 350.1.13.10 ity of [place] [facility] 4.2.7.2.686 Asael as [phone] [address] 2022-10-25 2022-10-27 Emergency Elan Wild 1.2.840.1 [id number] Methodi 11:19:00 12:45:00 Sarah Abbott. 48286.1.[address] 3.430.2.7 Hospit a .3.267330 l .8 2022-10-25 2022-10-27 Outpatient VIV [facility] [id number] 2651 [place] 00:00:00 00:00:00 SARAH [address] [facility] 2022-10-25 2022-10-25 Travel 1.2.840.1 1.2.065.755 [id number] Methodi 00:00:00 00:00:[address] 3.430.2.7 0.2.7.3.698 Ho spita .3.933193 084.8 l .8 2022-04-29 2022-04-29 Office Elijah, 1.2.840.1 [id number] Methodi 09:00:00 09:17:07 Visit Liss 60240.1.[address] Conti 3.430.2.7 Hospit a .3.293455 l .8 2022-04-29 2022-04-29 Outpatient [facility] [id number] 208 [place] 00:00:00 00:00:00 LISS [address] 2022-04-29 2022-04-29 Outpatient [facility] [id number] 554 [place] 00:00:00 00:00:00 LISS [address] 2022-04-29 2022-04-29 Outpatient [facility] [id number] 554 [place] 00:00:00 00:00:00 LISS [address] 2022-04-29 2022-04-29 Travel 1.2.840.1 1.2.292.540 [id number] Methodi 00:00:00 00:00:[address] 3.430.2.7 0.2.7.3.698 Ho spita .3.938844 084.8 l .8 2022-04-13 2022-04-13 Outpatient [facility] [id number] [facility] 00:00:00 00:00:00 [id number] Medica l Group 2022-04-11 2022-04-11 Orders Doctor SUSHIL 1.2.840.114 [id number] Univers 00:00:00 00:00:00 Only Unassigned, [place] 350.1.13.10 ity of [place] [facility] 4.2.7.2.686 Asael as [phone] [facility] [address] 2022-03-11 2022-03-11 Outpatient Cj [facility]ENN[facility]Y [facility] [id number] Univers 10:00:00 10:09:02 JONATHAN [facility] 2022-03-11 2022-03-11 Office [facility] 1.2.840.114 [id number] Univers 10:00:00 10:09:02 Visit Jonathan S HEALTH 350.1.13.10 it y of [place] 4.2.7.2.686 Asael as CHANCE?BLEA [phone] Nj stephany PAZ [address] [place] [address] OFFICE [facility] 2022-03-03 2022-03-03 Office [facility] 1.2.840.114 [id number] Univers 10:00:00 10:15:00 Visit Jonathan S HEALTH 350.1.13.10 it y of [place] 4.2.7.2.686 Asael as CHANCE?BLEA [id number] Nj stephany PAZ [address] [place] [address] OFFICE [facility] 2022-03-03 2022-03-03 Outpatient [facility] [id number] Univers 10:00:00 10:00:00 [facility] 2022-03-02 2022-03-02 [facility]phone [facility] 1.2.831.609 [id number] Univers 00:00:00 00:00:00 Jonathan S HEALTH 350.1.13.10 it y of [place] 4.2.7.2.686 Asael as CHANCE?BLEA [id number] Nj stephany PAZ [address] [place] [address] OFFICE [facility] 2022-02-24 2022-02-24 Office [facility] 1.2.840.114 [id number] Univers 14:30:00 14:45:00 Visit [facility] HEALTH 350.1.13.10 it y of [place] 4.2.7.2.686 Asael as CHANCE?BLEA [id number] Nj stephany PAZ [address] [place] [address] OFFICE [facility] 2022-02-24 2022-02-24 Outpatient R [facility]ENT [facility] [id number] Univers 14:30:00 14:30:00 [facility] 2022-02-24 2022-02-24 [facility] [id number] Univers 14:30:00 14:30:00 [facility] 2022-02-16 2022-02-16 Office [facility] 1.2.840.114 [id number] Univers 15:45:00 16:00:00 Visit [facility] 350.1.13.10 it y of [place] 4.2.7.2.686 Asael as CHANCE?BLEA [id number] Nj stephany PAZ 198 [facility] OFFICE [facility] 2022-02-16 2022-02-16 Out[facility] [id number] Univers 15:45:00 15:45:00 [facility] 2022-02-02 2022-02-02 Transcribe Viv, 1.2.840.1 [id number] Methodi 00:00:00 00:00:00 Orders Sarah Antoine. [address]8635.1.[address] 3.430.2.7 Hospit a .3.771405 l .8 2022-01-10 2022-01-10 Outpatient [facility] [id number] Univers 14:00:00 14:00:00 [facility] 2021-12-28 2021-12-28 Outpatient [facility] [id number] Univers 14:15:00 15:34:20 [facility] 2021-12-28 2021-12-28 Office [facility] 1.2.840.114 [id number] Univers 14:15:00 15:34:20 Visit [facility] 350.1.13.10 it y of [place] 4.2.7.2.686 Asael as CHANCE?BLEA [id number] Nj stephany PAZ 198 [facility] OFFICE [facility] 2021-12-27 2021-12-27 Office [facility] 1.2.840.114 [id number] Univers 16:00:00 16:15:00 Visit [facility] HEALTH 350.1.13.10 it y of [place] 4.2.7.2.686 Asael as CHANCE?BLEA [id number] Nj stephany PAZ 198 [facility] OFFICE [facility] 2021-12-27 2021-12-27 Outpatient [facility] [id number] Univers 16:00:00 16:00:00 JONATHAN darius [facility] 2021-12-27 2021-12-27 Outpatient [facility] [id number] Univers 16:00:00 16:00:00 JONATHAN darius [facility] 2021-12-27 2021-12-27 Orders Doctor SUSHIL 1.2.840.114 [id number] Univers 00:00:00 00:00:00 Only Unassigned, [place] 350.1.13.10 [facility] 4.2.7.2.686 Asael as [phone] [facility] [address] 2021-09-06 2021-09-06 Emergency X [place], [facility] ERT [id number] Univers 16:46:00 19:27:00 LIGIA foy [facility] 2021-09-06 2021-09-06 Emergency [facility] 1.2.840.114 [id number] Univers 16:46:00 19:27:00 Ligia [place] 350.1.13.10 i ty of [place].2.7.2.[place] [phone] [facility] [address] 2021-06-04 2021-06-04 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, 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 - Db [facility] 1.2.840.1 [id number] Univers 08:26:55 08:41:55 Visit Elin Sims [facility] 350.1.13.10 ity of [place] 4.2.7.2.686 Asael as CHANCE?BLEA [phone] Nj stephany [facility] [address] MEDICAL OFFICE BUILDING 2021-06-04 2021-06-04 Outpatient R B[facility] [id number] Univers 08:15:00 08:31:31 ELIN foy [facility] 2021-06-04 2021-06-04 Office Jonathan Kennedy S [facility] 1.2.840.114 [id number] Univers 07:20:36 08:31:31 Visit Elin Sims [facility] 350.1.13.10 ity of [place] 4.2.7.2.686 Asael as CHANCE?BLEA [phone] [facility] [address] MEDICAL OFFICE BUILDING 2021-06-04 2021-06-04 Outpatient Cj SIMS [facility] [id number] Univers 08:15:00 08:15:00 ELIN foy [facility] 2021-05-13 2021-05-16 Inpatient NADYA [facility] [id number] [place] [address] 00:00:00 00:00:00 JUNG [address] 2021-05-10 2021-05-10 Emergency [facility] 1.2.606.782 [id number] Univers 12:57:00 14:11:00 Luis Carlos [place] 350.1.13.10 i ty of [place] 4.2.7.2.686 [place] [id number] [place] [address] [facility] 2021-03-24 2021-03-24 [facility] 1.2.840.114 [id number] Univers 15:55:00 23:59:00 Encounter [facility] 350.1.13.10 ity of [place] 4.2.7.2.686 Asael as Chance?Blea [id number] [facility] [address] Medical Office [facility] 2021-03-24 2021-03-24 Office [facility] 1.2.840.114 [id number] Univers 15:44:05 15:59:05 Visit [facility] 350.1.13.10 it y of [place] 4.2.7.2.686 Asael as Chance?Blea [id number] [facility] [address] [facility] Medical [facility] 2021-03-24 2021-03-24 Outpatient Cj [facility]Y [facility] [id number] Univers 15:15:00 15:15:00 JONATHANELOINA foy [facility] 2021-03-12 2021-03-12 Outpatient Cj [facility]S [facility] [id number] Univers 09:00:00 09:00:00 ELINCOMFORT foy [facility] 2021-03-11 2021-03-11 Outpatient Cj [facility]S [facility] [id number] Univers 08:45:00 08:45:00 ELINCOMFORT foy [facility] 2021-02-25 2021-02-25 Outpatient MADELEINE SON [facility] [id number] Univers 10:00:00 10:00:00 MADELEINE SEBASTIAN i ty of [facility] 2021-01-22 2021-01-24 Outpatient VIV [facility] [id number] 7556 [place] 00:00:00 00:00:00 SARAH [address] 2020-12-21 2020-12-21 Emergency [facility] 1.2.840.114 [id number] Univers 18:08:00 21:05:00 Nallely Hdez 350.1.13.10 ity of [place] 4.2.7.2.686 [facility] [id number] [facility] [address] 2020-12-10 2020-12-12 Inpatient VIV [facility] [id number] 471 [place] 00:00:00 00:00:00 SARAH [address] 2020-11-05 2020-11-05 Outpatient [facility] [id number] Univers 09:15:00 09:15:00 ELIN foy [facility] 2020-11-05 2020-11-05 Office [facility] 1.2.900.251 [id number] Univers 08:38:47 09:10:24 Visit [facility] 350.1.13.10 it y of Surgical 4.2.7.2.686 Asael as Specialti [id number] Nj dical es [address] [facility] 2020-11-05 2020-11-05 Telephone [facility] 1.2.840.114 [id number] Univers 00:00:00 00:00:00 [facility] 350.1.13.10 it y of Surgical 4.2.7.2.686 Asael as Specialti [id number] Nj dical es [address] [facility] 2020-11-03 2020-11-03 Emergency [facility] 1.2.754.407 [id number] Univers 11:55:00 15:49:00 Luis Carlos Hdez 350.1.13.10 i ty of [place] 4.2.7.2.686 [facility] [id number] [facility] demar [address]84 [place] 2020-10-28 2020-10-28 Outpatient Raju_P [facility] [id number] [place] 11:38:00 11:38:00 0414 Medical [facility] 2020-02-28 2020-02-28 Telephone [facility] 1.2.840.114 [id number] Univers 00:00:00 00:00:00 [facility] 350.1.13.10 it y of Surgical 4.2.7.2.686 Asael as Specialti [id number] Me dical es 198 [facility] 2020-02-28 2020-02-28 Telephone [facility] 1.2.840.114 [id number] 00:00:00 00:00:00 [facility] 350.1.13.10 Surgical 4.2.7.2.686 Specialti [id number] es 198 [place] 2020-02-27 2020-02-27 [facility] 1.2.840.114 [id number] [facility] 08:32:08 23:59:00 Encounter [facility] 350.1.13.10 ity of Surgical 4.2.7.2.686 Asael as Specialti [id number] Me dical es 809 [facility] 2020-02-27 2020-02-27 [facility] 1.2.840.114 [id number] 08:32:08 23:59:00 Encounter [facility] 350.1.13.10 Surgical 4.2.7.2.686 Specialti [id number] es 809 [place] 2020-02-27 2020-02-27 Outpatient R [facility] [id number] [facility] 09:00:00 09:00:00 ELIN ity of [facility] 2020-02-27 2020-02-27 Office [facility] [id number] [facility] 08:10:32 08:49:41 Visit [facility] 350.1.13.10 it y of Surgical [id number] Asael as Specialti [phone] Me dical es 198 [facility] 2020-02-27 2020-02-27 Office [facility] [id number] 08:10:32 08:49:41 [facility] [id number] Surgical [id number] Specialti [phone] es 198 Lemuel 2019-10-31 2019-10-31 Professor 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 [facility] 1.2.8 [id number] Univers 08:04:46 08:19:46 Visit Musa Turner [id number] ity of [place] [phone] [place]ical [address] 2019-10-31 2019-10-31 Outpatient R [facility] [id number] Univers 07:45:00 07:45:00 ity of [facility] 2019-10-31 2019-10-31 Outpatient R [facility]USA [facility] [id number] Univers 07:45:00 07:45:00 ity of [facility] 2019-10-31 2019-10-31 Orders Doctor SUSHIL [id number] Univers 00:00:00 00:00:00 Only [place]igned, [place] 350.1.13.10 ity of [place] [facility] 4.2.7.2.686 Asael as [phone] [address] Results Test Description Test Time Test Comments Results Result Comments Source ECG 12 lead 2022-10-26 21:49:33 Test Item Value Reference Range Interpretation Comme nts Ventricular rate (test code = 253) 68 Atrial rate (test code = 255) 68 OH interval (test code = 266) 148 QRSD interval (test code = 260) 80 QT interval (test code = 264) 432 QTC interval (test code = 265) 459 P axis 1 (test code = 267) 55 QRS axis 1 (test code = 268) 72 T wave axis (test code = 270) 53 EKG impression (test code = 273) Normal sinus rhythm-Normal ECG-In automated comparison with ECG of 25-OCT-2022 16:44,-No significant change was found- [facility] [id number] 13:05:12 Test Item Value Reference Range Interpretation Comments SARS-CoV-2 (COVID-19) RNA Not detected [Presence] in Respiratory specimen by NIVIA with probe detection (test code = 98953-2) Whether patient resides in a No congregate care setting (test code = 99474-3) Date and time of symptom onset Unknown (test code = 90977-1) Whether the patient was No hospitalized for condition of interest (test code = 60416-2) Whether the patient was admitted No to intensive care unit (ICU) for condition of interest (test code = 54379-6) Whether patient is employed in a No healthcare setting (test code = 20362-3) Whether the patient has symptoms No related to condition of interest (test code = 21996-5) status (test code = No 70224-5) [facility]-CoV-2 (COVID-19) RNA [Presence] in Respiratory specimen by NIVIA with probe [id number] 02:03:05 Test Item Value Reference Range Interpretation Comments SARS-CoV-2 (COVID-19) RNA Not detected Not-Detected [Presence] in Respiratory specimen by NIVIA with probe detection (test code = 43701-6) Whether patient is employed in a healthcare setting (test code = 13735-1) Whether the patient has symptoms related to condition of interest (test code = 27882-8) Patient was hospitalized because of this condition (test code = 12460-1) Whether the patient was admitted to intensive care unit (ICU) for condition of interest (test code = 36688-4) Whether patient resides in a congregate care setting (test code = 07951-3) [facility]-CoV-2 (COVID-19) RNA [Presence] in Respiratory specimen by NIVIA with probe [id number] 20:51:54 Test Item Value Reference Range Interpretation Comments SARS-CoV-2 (COVID-19) RNA Not detected Not-Detected [Presence] in Respiratory specimen by NIVIA with probe detection (test code = 27728-6) Whether patient is employed in a healthcare setting (test code = 60563-9) Whether the patient has symptoms related to condition of interest (test code = 39482-7) Patient was hospitalized because of this condition (test code = 56032-0) Whether the patient was admitted to intensive care unit (ICU) for condition of interest (test code = 41331-8) Whether patient resides in a congregate care setting (test code = 97354-6) [facility]-CoV-2 (COVID-19) RNA [Presence] in Respiratory specimen by NIVIA with probe [id number] 22:15:41 Test Item Value Reference Range Interpretation Comments SARS-CoV-2 (COVID-19) RNA Not detected Not-Detected [Presence] in Respiratory specimen by NIVIA with probe detection (test code = 25209-7) Whether patient is employed in a healthcare setting (test code = 07420-1) Whether the patient has symptoms related to condition of interest (test code = 58358-3) Patient was hospitalized because of this condition (test code = 16870-6) Whether the patient was admitted to intensive care unit (ICU) for condition of interest (test code = 86719-6) Whether patient resides in a congregate care setting (test code = 76591-3) [facility]-CoV-2 (COVID-19) RNA [Presence] in Respiratory specimen by NIVIA with probe [id number] 19:37:15 Test Item Value Reference Range Interpretation Comments SARS-CoV-2 (COVID-19) RNA Not detected Not-Detected [Presence] in Respiratory specimen by NIVIA with probe detection (test code = 65066-9) Whether patient is employed in a healthcare setting (test code = 97474-9) Whether the patient has symptoms related to condition of interest (test code = 85638-4) Patient was hospitalized because of this condition (test code = 35065-7) Whether the patient was admitted to intensive care unit (ICU) for condition of interest (test code = 99622-0) Whether patient resides in a congregate care setting (test code = 06990-1) [facility]
--- NOTE | 2022-12-13 17:04 | EDPHYS ---
Physician Documentation [facility] Name: Veronica Hannah Age: 72 yrs Sex: Female : 1950 Arrival Date: 12/13/2022 Time: 16:42 Bed IW2 Private MD: Marianne Sotelo ED Physician Joel Poole HPI: 12/13 16:56 This 72 yrs old Female presents to ER via Unassigned with complaints of Cyst. cp 16:56 The patient or guardian complains of swelling. The complaints affect the left elbow. cp Context: resulted from unknown cause. 16:56 Onset: The symptoms/episode began/occurred noticed today. cp 16:56 Treatment prior to arrival includes: no previous treatment. Associated signs and cp symptoms: The patient has no apparent associated signs or symptoms. ROS: 16:58 Constitutional: Negative for fever. cp 16:58 MS/extremity: Positive for swelling, of the posterior aspect left elbow, Negative for injury or acute deformity, decreased range of motion. 16:58 Skin: Negative for cellulitis, rash. cp 16:58 All other systems are negative. cp Exam: 17:00 Constitutional: The patient appears in no acute distress, alert, awake, comfortable, cp well developed, well nourished. 17:00 Musculoskeletal/extremity: Extremities: grossly normal except: noted in the posterior cp aspect left elbow: swelling, fluctuant, nontender bursa with no erythema noted, ROM: full active range of motion, in the left elbow, Perfusion: the extremity is normally perfused throughout, the left hand and left arm Sensation intact. 17:00 Skin: cellulitis, is not appreciated, no rash present. Vital Signs: 17:02 BP 111 / 74; Pulse 69; Resp 16; Temp 97.7; Pulse Ox 95% on R/A; iw MDM: 17:04 Patient medically screened. cp 17:04 Differential diagnosis: cellulitis, abscess, joint effusion, bursitis. cp 17:04 Data reviewed: vital signs, nurses notes. Counseling: I had a detailed discussion with cp the patient and/or guardian regarding: the historical points, exam findings, and any diagnostic results supporting the discharge/admit diagnosis, the need for outpatient follow up, a orthopedic surgeon, to return to the emergency department if symptoms worsen or persist or if there are any questions or concerns that arise at home. 05/30 16:56 Order name: Trae wrap-joint: left elbow cp Administered Medications: No medications were administered Disposition Summary: 12/13/22 17:04 Discharge Ordered Location: Home cp Problem: new cp Symptoms: have improved cp Condition: Stable cp Diagnosis - Olecranon bursitis, left elbow cp Followup: cp - With: Private Physician - When: 1 week - Reason: Recheck today's complaints Discharge Instructions: - Discharge Summary Sheet cp - Elastic Bandage and RICE Therapy cp - Elbow Bursitis cp Forms: - Medication Reconciliation Form cp - Thank You Letter cp - Antibiotic Education cp - Prescription Opioid Use cp Prescriptions: - Ibuprofen 800 mg Oral Tablet - take 1 tablet by ORAL route every 12 hours As needed take with food; 20 tablet; cp Refills: 0, Product Selection Permitted Signatures: Luis Christensen PA PA cp
--- NOTE | 2022-12-13 17:04 | ER ---
Nurse's Notes [facility] Name: Veronica Hannah Age: 72 yrs Sex: Female : 1950 Arrival Date: 12/13/2022 Time: 16:42 Bed IW2 Private MD: Marianne Sotelo Diagnosis: Olecranon bursitis, left elbow Presentation: 12/13 17:02 Chief complaint: Patient states: cyst to left elbow X 3-4 days. Coronavirus screen: At this time, the client does not indicate any symptoms associated with coronavirus-19. Ebola Screen: Patient negative for fever greater than or equal to 101.5 degrees Fahrenheit, and additional compatible Ebola Virus Disease symptoms Patient denies exposure to infectious person. Patient denies travel to an Ebola-affected area in the 21 days before illness onset. No symptoms or risks identified at this time. Initial Sepsis Screen: Does the patient meet any 2 criteria? No. Patient's initial sepsis screen is negative. Does the patient have a suspected source of infection? No. Patient's initial sepsis screen is negative. Risk Assessment: Do you want to hurt yourself or someone else? Patient reports no desire to harm self or others. Onset of symptoms was December 09, 2022. 17:02 Method Of Arrival: Wheelchair iw 17:02 Acuity: BALJIT 4 iw Vital Signs: 17:02 BP 111 / 74; Pulse 69; Resp 16; Temp 97.7; Pulse Ox 95% on R/A; iw ED Course: 16:45 Patient arrived in ED. mr 16:46 Marianne Sotelo is Private Physician. mr 16:46 [facility] cp 16:46 Joel Poole MD is Attending Physician. cp 17:03 Triage completed. iw 17:03 Arm band placed on. iw 17:17 Flora Mcwilliams RN is Primary Nurse. iw Administered Medications: No medications were administered Outcome: 17:04 Discharge ordered by . cp 17:17 Patient left the ED. iw Signatures: Veronica Durbin Flora Mcwilliams RN RN iw Luis Christensen PA PA cp
[2022-12-13 17:39] VITALS: BP 111/74; TEMP 97.7; O2SAT 95
== END 2022-12-13 17:17 | disposition home or self-care (01) ==
LOC: ER 16:42
DX: M70.22 Olecranon bursitis, left elbow (principal)
CPT/HCPCS: 99281

== ENCOUNTER 2023-04-21 17:36 | Emergency (ER) | payer OTHER ==
--- OUTSIDE RECORDS SUMMARY | 2023-04-21 17:57 | XMS REPORT | Continuity of Care Document ---
:1950 Author Organization [facility] t Address [address] [place] [address] [address] [place] [address] Care Team Providers Name Role Phone Nicola KENDRICK, Serena Primary Care Physician Elin Sims MD Attending Clinician Doctor Unassigned, [place] Attending Clinician Unavailable Jonathan Benson Attending Clinician JONATHAN KENNEDY Attending Clinician Unavailable Nuzhat Godfrey LMSW Attending Clinician Unavailable KATIANA ALVARADO Attending Clinician Unavailable Katiana Alvarado DO Attending Clinician Pob, [facility] Main Attending Clinician Unavailable Will Marinelli PTA Attending Clinician Unavailable ELIN SIMS Attending Clinician Unavailable INDIA DURANT Attending Clinician Unavailable India Durant MD Attending Clinician Junito KEDNRICK, Elan Peña Attending Clinician Viv KENDRICK, Sarah Murillo Attending Clinician Elana KENDRICK, Liss Conti Attending Clinician LIGIA ADAN Attending Clinician Unavailable Ligia Arams Attending Clinician Lab, Ang - Db Attending Clinician Unavailable JUNG COVINGTON Attending Clinician Unavailable MD JUNG COVINGTON Attending Clinician Unavailable Luis Carlos Vaughn MD Attending Clinician MADELEINE SEBASTIAN Attending Clinician Unavailable MADELEINE SEBASTIAN Attending Clinician Unavailable MD SARAH ABBOTT Attending Clinician Unavailable Yimiunmignon CUNNINGHAM, Folusho F Attending Clinician Raju_P Attending Clinician Unavailable Musa Turner MD Attending Clinician MUSA TURNER Attending Clinician Unavailable ELIN SIMS Admitting Clinician Unavailable Elin Sims MD Admitting Clinician SARAH ABBOTT Admitting Clinician Unavailable MIKE PARRISH Admitting Clinician Unavailable LIGIA ADAN Admitting Clinician Unavailable JUNG COVINGTON Admitting Clinician Unavailable MD ABDI ALVES Admitting Clinician Unavailable MD SARAH ABBOTT Admitting Clinician Unavailable Gricel Admitting Clinician Unavailable Payers Payer Name Policy Type Policy Number Effective Date Expiration Date S hector MEDICARE PART A \T\ [id number] 1974 B 00:00:00 [employer] [id number] 2013 OUT OF NETWORK 00:00:00 Sefaira [id number] 2022 (MEDICARE 00:00:00 REPLACEMENT HMO) Problems Condition [...] it y of on on 00:00: [place] [facility] Dyslipidem Dyslipidem Disease Active U nivers ia ia 04-12 ity of 00:00: Medical Branch Syncope Syncope Disease Active Univers and and 04-11 ity of collapse collapse 00:00: [place] [facility] Bronchitis Bronchitis Disease Active M ethodi 2- st 00:00: [facility]osp[facility] 00 l Bilateral Bilateral Disease Active 2014-07 Uni vers hand pain hand pain 0-29 ity of 00:00: Medical Branch Allergies, Adverse Reactions, Alerts Allergy Allergy Status Severity Reaction(s) Onset Inactive Treating Comm ents Source Name Type Date Date Clinician ARIPIPRA DRUG Active Anxiety Univers ZOLE INGREDI 2 ity of 00:00: [place] [facility] Aripipra Propensi Active Anxiety Unive rs zole ty to 2- ity of adverse 00:00: [place] reaction 00 Medical s Branch Family History Family Member Diagnosis Comments Start Date Stop Date Source Natural [facility] sister Alcohol abuse [facility] Natural sister Mental illness Method [facility] Natural brother Alcohol abuse Method [facility] Natural brother Mental illness Metho [facility] Natural father Heart disease Methodi [facility] Natural father Hypertension Methodis [facility] Social History Social Habit Start Date Stop Date Quantity Comments Source History SDOH University o f Alcohol Std Drinks [place] [facility] History SDOH University o f Alcohol [facility]inge [place] [facility] History SDOH Social Unive rsity of Connections [facility] Med ical Together Branch History SDOH Social Unive rsity of Connections [facility] Medical Branch History SDOH Social Unive rsity of Connections [place] [facility] Membership Branch History SDOH Social Unive rsity of Connections [place] [facility] Meetings [facility] Gender identity [facility] [place] [facility] [place] Sexual orientation Method is Hospital History SDOH Social 2022-12-20 2022-12-20 5 Unive rsity of Connections Phone 00:00:00 00:00:00 [facility] edical Branch History SDOH Social 2022-12-20 2022-12-20 8 Unive rsity of Connections Living 00:00:00 00:00:00 [place] [facility] History SDOH 2022-12-20 2022-12-20 5 University o f Financial 00:00:00 00:00:00 [place] [facility] History SDOH Food 2022-12-20 2022-12-20 1 Univers ity of Worry 00:00:00 00:00:00 [place] [facility] History SDOH Food 2022-12-20 2022-12-20 1 Univers ity of Scarcity 00:00:00 00:00:00 [place] [facility] History SDOH 2022-12-20 2022-12-20 2 University o f Transport Med 00:00:00 00:00:00 [place] [facility] History SDID 2022-12-20 2022-12-20 2 University o f Transport Non-Med 00:00:00 00:00:00 [place] M edical [facility] History SDOH 2022-12-20 2022-12-20 2 University o f Housing Unable to 00:00:00 00:00:00 [place] [facility] Pay Branch History SDID 2022-12-20 2022-12-20 1 University o f Housing Places 00:00:00 00:00:00 [place] [facility] demar Lived Branch History SDID 2022-12-20 2022-12-20 2 University o f Housing Homeless 00:00:00 00:00:00 [place] [facility] Last Year Branch History SDID 2022-12-20 2022-12-20 1 University o f Alcohol Frequency 00:00:00 00:00:00 [facility] edical Branch Tobacco use and 2022-12-19 2022-12-19 Smokeless Universit y of exposure 00:00:00 00:00:00 tobacco non-user [place] [facility] d[facility] Exposure to 2022-11-26 2022-12-06 Not sure University of SARS-CoV-2 (event) 00:00:00 11:08:00 [place] [facility] History of Social 2022-10-27 2022-10-[address] function 00:00:00 00:00:00 Hospital Alcohol intake 2022-10-25 2022-10-25 Current [place] 00:00:00 00:00:00 non-drinker of Hospital alcohol (finding) Sex [birth year] [place] 00:00:00 00:00:00 Hospital Smoking Status Start Date Stop Date Source Never smoked tobacco [facility] Medical Branch Medications Ordered Filled Start Stop Current Ordering Indication Dosage Frequency Signature Comments Components Source Medication Medication Date Date Medication? Clinician (SIG) Name Name acetaminoph 3-0 Yes 4647 1{tbl} Take 1 Un kayla en-codeine 7-20 tablet by ity of (TYLENOL-CO 00:00: mouth [place] DEINE #3) 00 every 4 Medical 300-30 mg (four) Branch tablet hours as needed for Pain (scale 4-6) or Pain (scale 7-10). Indication s: acute pain acetaminoph 2023-0 Yes 4647 1{tbl} Take 1 Un kayla en-codeine 7-20 tablet by ity of (TYLENOL-CO 00:00: mouth [place] DEINE #3) 00 every 4 Medical 300-30 mg (four) Branch tablet hours as needed for Pain (scale 4-6) or Pain (scale 7-10). Indication s: acute pain acetaminoph 3-0 Yes 4647 1{tbl} Take 1 Un kayla en-codeine 7-20 tablet by ity of (TYLENOL-CO 00:00: mouth [place] DEINE #3) 00 every 4 Medical 300-30 mg (four) Branch tablet hours as needed for Pain (scale 4-6) or Pain (scale 7-10). Indication s: acute pain acetaminoph 2023-0 Yes 4647 1{tbl} Take 1 Un kayla en-codeine 7-20 tablet by ity of (TYLENOL-CO 00:00: mouth [place] DEINE #3) 00 every 4 Medical 300-30 mg (four) Branch tablet hours as needed for Pain (scale 4-6) or Pain (scale 7-10). Indication s: acute pain acetaminoph 2023-0 Yes 4647 1{tbl} Take 1 Un kayla en-codeine 7-20 tablet by ity of (TYLENOL-CO 00:00: mouth [place] DEINE #3) 00 every 4 Medical 300-30 mg (four) Branch tablet hours as needed for Pain (scale 4-6) or Pain (scale 7-10). Indication s: acute pain acetaminoph 2023-0 Yes 4647 1{tbl} Take 1 Un kayal en-codeine 7-20 tablet by ity of (TYLENOL-CO 00:00: mouth [place] DEINE #3) 00 every 4 Medical 300-30 mg (four) Branch tablet hours as needed for Pain (scale 4-6) or Pain (scale 7-10). Indication s: acute pain acetaminoph 2023-0 Yes 4647 1{tbl} Take 1 Un kayla en-codeine 7-20 tablet by ity of (TYLENOL-CO 00:00: mouth [place] DEINE #3) 00 every 4 Medical 300-30 mg (four) Branch tablet hours as needed for Pain (scale 4-6) or Pain (scale 7-10). Indication s: acute pain acetaminoph 2023-0 Yes 4647 1{tbl} Take 1 Un kayla en-codeine 7-20 tablet by ity of (TYLENOL-CO 00:00: mouth [place] DEINE #3) 00 every 4 Medical 300-30 mg (four) Branch tablet hours as needed for Pain (scale 4-6) or Pain (scale 7-10). Indication s: acute pain acetaminoph 2023-0 Yes 4647 1{tbl} Take 1 Un kayla en-codeine 7-14 tablet by ity of (TYLENOL-CO 00:00: mouth [place] DEINE #3) 00 every 4 Medical 300-30 mg (four) Branch tablet hours as needed for Pain (scale 4-6) or Pain (scale 7-10). Indication s: acute pain acetaminoph 2023-0 Yes 4647 1{tbl} Take 1 Un kayla en-codeine 7-14 tablet by ity of (TYLENOL-CO 00:00: mouth [place] DEINE #3) 00 every 4 Medical 300-30 mg (four) Branch tablet hours as needed for Pain (scale 4-6) or Pain (scale 7-10). Indication s: acute pain acetaminoph 2023-0 Yes 4647 1{tbl} Take 1 Un kayla en-codeine 7-14 tablet by ity of (TYLENOL-CO 00:00: mouth [place] DEINE #3) 00 every 4 Medical 300-30 mg (four) Branch tablet hours as needed for Pain (scale 4-6) or Pain (scale 7-10). Indication s: acute pain acetaminoph 2023-0 Yes 4647 1{tbl} Take 1 Un kayla en-codeine 7-14 tablet by ity of (TYLENOL-CO 00:00: mouth [place] DEINE #3) 00 every 4 Medical 300-30 mg (four) Branch tablet hours as needed for Pain (scale 4-6) or Pain (scale 7-10). Indication s: acute pain acetaminoph 2023-0 Yes 4647 1{tbl} Take 1 Un kayla en-codeine 7-14 tablet by ity of (TYLENOL-CO 00:00: mouth [place] DEINE #3) 00 every 4 Medical 300-30 mg (four) Branch tablet hours as needed for Pain (scale 4-6) or Pain (scale 7-10). Indication s: acute pain acetaminoph 2023-0 Yes 4647 1{tbl} Take 1 Un kayla en-codeine 7-14 tablet by ity of (TYLENOL-CO 00:00: mouth [place] DEINE #3) 00 every 4 Medical 300-30 mg (four) Branch tablet hours as needed for Pain (scale 4-6) or Pain (scale 7-10). Indication s: acute pain acetaminoph 2023-0 Yes 4647 1{tbl} Take 1 Un kayla en-codeine 7-14 tablet by ity of (TYLENOL-CO 00:00: mouth [place] DEINE #3) 00 every 4 Medical 300-30 mg (four) Branch tablet hours as needed for Pain (scale 4-6) or Pain (scale 7-10). Indication s: acute pain acetaminoph 2023-0 Yes 4647 1{tbl} Take 1 Un kayla en-codeine 7-14 tablet by ity of (TYLENOL-CO 00:00: mouth [place] DEINE #3) 00 every 4 Medical 300-30 mg (four) Branch tablet hours as needed for Pain (scale 4-6) or Pain (scale 7-10). Indication s: acute pain acetaminoph 2023-0 Yes 4647 1{tbl} Take 1 Un kayla en-codeine 7-14 tablet by ity of (TYLENOL-CO 00:00: mouth [place] DEINE #3) 00 every 4 Medical 300-30 mg (four) Branch tablet hours as needed for Pain (scale 4-6) or Pain (scale 7-10). Indication s: acute pain acetaminoph 2023-0 Yes 4647 1{tbl} Take 1 Un kayla en-codeine 6-28 tablet by ity of (TYLENOL-CO 00:00: mouth [place] DEINE #3) 00 every 4 Medical 300-30 mg (four) Branch tablet hours as needed for Pain (scale 4-6) or Pain (scale 7-10). Indication s: acute pain acetaminoph 2023-0 Yes 4647 1{tbl} Take 1 Un kayla en-codeine 6-28 tablet by ity of (TYLENOL-CO 00:00: mouth [place] DEINE #3) 00 every 4 Medical 300-30 mg (four) Branch tablet hours as needed for Pain (scale 4-6) or Pain (scale 7-10). Indication s: acute pain acetaminoph 2023-0 Yes 4647 1{tbl} Take 1 Un kayla en-codeine 6-28 tablet by ity of (TYLENOL-CO 00:00: mouth [place] DEINE #3) 00 every 4 Medical 300-30 mg (four) Branch tablet hours as needed for Pain (scale 4-6) or Pain (scale 7-10). Indication s: acute pain acetaminoph 2023-0 Yes 4647 1{tbl} Take 1 Un kayla en-codeine 6-28 tablet by ity of (TYLENOL-CO 00:00: mouth [place] DEINE #3) 00 every 4 Medical 300-30 mg (four) Branch tablet hours as needed for Pain (scale 4-6) or Pain (scale 7-10). Indication s: acute pain acetaminoph 2023-0 Yes 4647 1{tbl} Take 1 Un kayla en-codeine 6-28 tablet by ity of (TYLENOL-CO 00:00: mouth [place] DEINE #3) 00 every 4 Medical 300-30 mg (four) Branch tablet hours as needed for Pain (scale 4-6) or Pain (scale 7-10). Indication s: acute pain acetaminoph 2023-0 Yes 4647 1{tbl} Take 1 Un kayla en-codeine 6-28 tablet by ity of (TYLENOL-CO 00:00: mouth [place] DEINE #3) 00 every 4 Medical 300-30 mg (four) Branch tablet hours as needed for Pain (scale 4-6) or Pain (scale 7-10). Indication s: acute pain acetaminoph 2023-0 Yes 4647 1{tbl} Take 1 Un kayla en-codeine 6-28 tablet by ity of (TYLENOL-CO 00:00: mouth [place] DEINE #3) 00 every 4 Medical 300-30 mg (four) Branch tablet hours as needed for Pain (scale 4-6) or Pain (scale 7-10). Indication s: acute pain acetaminoph 2023-0 Yes 4647 1{tbl} Take 1 Un kayla en-codeine 6-28 tablet by ity of (TYLENOL-CO 00:00: mouth [place] DEINE #3) 00 every 4 Medical 300-30 mg (four) Branch tablet hours as needed for Pain (scale 4-6) or Pain (scale 7-10). Indication s: acute pain acetaminoph 2023-0 Yes 4647 1{tbl} Take 1 Un kayla en-codeine 6-28 tablet by ity of (TYLENOL-CO 00:00: mouth [place] DEINE #3) 00 every 4 Medical 300-30 mg (four) Branch tablet hours as needed for Pain (scale 4-6) or Pain (scale 7-10). Indication s: acute pain acetaminoph 2023-0 Yes 4647 1{tbl} Take 1 Un kayla en-codeine 6-28 tablet by ity of (TYLENOL-CO 00:00: mouth [place] DEINE #3) 00 every 4 Medical 300-30 mg (four) Branch tablet hours as needed for Pain (scale 4-6) or Pain (scale 7-10). Indication s: acute pain acetaminoph 2023-0 Yes 4647 1{tbl} Take 1 Un kayla en-codeine 6-28 tablet by ity of (TYLENOL-CO 00:00: mouth [place] DEINE #3) 00 every 4 Medical 300-30 mg (four) Branch tablet hours as needed for Pain (scale 4-6) or Pain (scale 7-10). Indication s: acute pain acetaminoph 2023-0 Yes 4647 1{tbl} Take 1 Un kayla en-codeine 6-20 tablet by ity of (TYLENOL-CO 00:00: mouth [place] DEINE #3) 00 every 4 Medical 300-30 mg (four) Branch tablet hours as needed for Pain (scale 4-6) or Pain (scale 7-10). Indication s: acute pain acetaminoph 2023-0 Yes 4647 1{tbl} Take 1 Un kayla en-codeine 6-20 tablet by ity of (TYLENOL-CO 00:00: mouth [place] DEINE #3) 00 every 4 Medical 300-30 mg (four) Branch tablet hours as needed for Pain (scale 4-6) or Pain (scale 7-10). Indication s: acute pain acetaminoph 2023-0 Yes 4647 1{tbl} Take 1 Un kayla en-codeine 6-20 tablet by ity of (TYLENOL-CO 00:00: mouth [place] DEINE #3) 00 every 4 Medical 300-30 mg (four) Branch tablet hours as needed for Pain (scale 4-6) or Pain (scale 7-10). Indication s: acute pain acetaminoph 2023-0 Yes 4647 1{tbl} Take 1 Un kayla en-codeine 6-20 tablet by ity of (TYLENOL-CO 00:00: mouth [place] DEINE #3) 00 every 4 Medical 300-30 mg (four) Branch tablet hours as needed for Pain (scale 4-6) or Pain (scale 7-10). Indication s: acute pain acetaminoph 2023-0 Yes 4647 1{tbl} Take 1 Un kayla en-codeine 6-20 tablet by ity of (TYLENOL-CO 00:00: mouth [place] DEINE #3) 00 every 4 Medical 300-30 mg (four) Branch tablet hours as needed for Pain (scale 4-6) or Pain (scale 7-10). Indication s: acute pain acetaminoph 2023-0 Yes 4647 1{tbl} Take 1 Un [place] en-codeine 6-20 tablet by ity of (TYLENOL-CO 00:00: mouth [place] DEINE #3) 00 every 4 Medical 300-30 mg (four) Branch tablet hours as needed for Pain (scale 4-6) or Pain (scale 7-10). Indication s: acute pain acetaminoph 2023-0 Yes 4647 1{tbl} Take 1 Un kayla en-codeine 6-20 tablet by ity of (TYLENOL-CO 00:00: mouth [place] DEINE #3) 00 every 4 Medical 300-30 mg (four) Branch tablet hours as needed for Pain (scale 4-6) or Pain (scale 7-10). Indication s: acute pain acetaminoph 2023-0 Yes 4647 1{tbl} Take 1 Un kay[place] en-codeine 6-20 tablet by ity of (TYLENOL-CO 00:00: mouth [place] DEINE #3) 00 every 4 Medical 300-30 mg (four) Branch tablet hours as needed for Pain (scale 4-6) or Pain (scale 7-10). Indication s: acute pain acetaminoph 2023-0 Yes 4647 1{tbl} Take 1 Un kayla en-codeine 6-20 tablet by ity of (TYLENOL-CO 00:00: mouth [place] DEINE #3) 00 every 4 Medical 300-30 mg (four) Branch tablet hours as needed for Pain (scale 4-6) or Pain (scale 7-10). Indication s: acute pain acetaminoph 3-0 Yes 4647 1{tbl} Take 1 Un kayla en-codeine 6-20 tablet by ity of (TYLENOL-CO 00:00: mouth [place] DEINE #3) 00 every 4 Medical 300-30 mg (four) Branch tablet hours as needed for Pain (scale 4-6) or Pain (scale 7-10). Indication s: acute pain acetaminoph 2023-0 Yes 4647 1{tbl} Take 1 Un kayla en-codeine 6-20 tablet by ity of (TYLENOL-CO 00:00: mouth [place] DEINE #3) 00 every 4 Medical 300-30 mg (four) Branch tablet hours as needed for Pain (scale 4-6) or Pain (scale 7-10). Indication s: acute pain acetaminoph 2023-0 2023- No 4647 1{tbl} Take 1 U nivers en-codeine 6-20 07-20 tablet by ity of (TYLENOL-CO 00:00: 00:00 [place] #3) 00 :00 every 4 Medical 300-30 mg (four) Branch tablet hours as needed for Pain (scale 4-6) or Pain (scale 7-10). Indication s: acute pain acetaminoph 2023-0 2023- No 4647 1{tbl} Take 1 U nivers en-codeine 6-20 07-20 tablet by ity of (TYLENOL-CO 00:00: 00:00 mouth [place] COSME #3) 00 :00 every 4 Medical 300-30 mg (four) Branch tablet hours as needed for Pain (scale 4-6) or Pain (scale 7-10). Indication s: acute pain montelukast 2023-0 Yes 10mg Take 1 Univ ers 10 mg 6-08 tablet by ity of tablet 13:13: mouth in [place] [address] the Medical morning. Branch montelukast 2023-0 Yes 10mg Take 1 Univ ers 10 mg 6-08 tablet by ity of tablet 13:13: mouth in [place] [address] the Medical morning. Branch montelukast 2023-0 Yes 10mg Take 1 Univ ers 10 mg 6-08 tablet by ity of tablet 13:13: mouth in [place] [address] the Medical morning. Branch montelukast 2023-0 Yes 10mg Take 1 Univ ers 10 mg 6-08 tablet by ity of tablet 13:13: mouth in [place] [address] the Medical morning. Branch montelukast 2023-0 Yes 10mg Take 1 Univ ers 10 mg 6-08 tablet by ity of tablet 13:13: mouth in [place] [address] the Medical morning. Branch montelukast 2023-0 Yes 10mg Take 1 Univ ers 10 mg 6-08 tablet by ity of tablet 13:13: mouth in [place] [address] the Medical morning. Branch montelukast 2023-0 Yes 10mg Take 1 Univ ers 10 mg 6-08 tablet by ity of tablet 13:13: mouth in [place] [address] the Medical morning. Branch montelukast 2023-0 Yes 10mg Take 1 Univ ers 10 mg 6-08 tablet by ity of tablet 13:13: mouth in [place] [address] the Medical morning. Branch montelukast 2023-0 Yes 10mg Take 1 Univ ers 10 mg 6-08 tablet by ity of tablet 13:13: mouth in [place] [address] the Medical morning. Branch montelukast 2023-0 Yes 10mg Take 1 Univ ers 10 mg 6-08 tablet by ity of tablet 13:13: mouth in [place] [address] the Medical morning. Branch montelukast 2023-0 Yes 10mg Take 1 Univ ers 10 mg 6-08 tablet by ity of tablet 13:13: mouth in [place] [address] the Medical morning. Branch montelukast 2023-0 Yes 10mg Take 1 Univ ers 10 mg 6-08 tablet by ity of tablet 13:13: mouth in [place] [address] the Medical morning. Branch montelukast 2023-0 Yes 10mg Take 1 Univ ers 10 mg 6-08 tablet by ity of tablet 13:13: mouth in [place] [address] the Medical morning. Branch montelukast 2023-0 Yes 10mg Take 1 Univ ers 10 mg 6-08 tablet by ity of tablet 13:13: mouth in [place] [address] the Medical morning. Branch montelukast 2023-0 Yes 10mg Take 1 Univ ers 10 mg 6-08 tablet by ity of tablet 13:13: mouth in [place] [address] the Medical morning. Branch montelukast 2023-0 Yes 10mg Take 1 Univ ers 10 mg 6-08 tablet by ity of tablet 13:13: mouth in [place] [address] the Medical morning. Branch montelukast 2023-0 Yes 10mg Take 1 Univ ers 10 mg 6-08 tablet by ity of tablet 13:13: mouth in [place] [address] the Medical morning. Branch montelukast 2023-0 Yes 10mg Take 1 Univ ers 10 mg 6-08 tablet by ity of tablet 13:13: mouth in [place] [address] the Medical morning. Branch montelukast 2023-0 Yes 10mg Take 1 Univ ers 10 mg 6-08 tablet by ity of tablet 13:13: mouth in [place] [address] the Medical morning. Branch montelukast 2023-0 Yes 10mg Take 1 Univ ers 10 mg 6-08 tablet by ity of tablet 13:13: mouth in [place] [address] the Medical morning. Branch montelukast 2023-0 Yes 10mg Take 1 Univ ers 10 mg 6-08 tablet by ity of tablet 13:13: mouth in [place] [address] the Medical morning. Branch montelukast 2023-0 Yes 10mg Take 1 Univ ers 10 mg 6-08 tablet by ity of tablet 13:13: mouth in [place] [address] the Medical morning. Branch montelukast 2023-0 Yes 10mg Take 1 Univ ers 10 mg 6-08 tablet by ity of tablet 13:13: mouth in [place] [address] the Medical morning. Branch montelukast 2023-0 Yes 10mg Take 1 Univ ers 10 mg 6-08 tablet by ity of tablet 13:13: mouth in [place] [address] the Medical morning. Branch montelukast 2023-0 Yes 10mg Take 1 Univ ers 10 mg 6-08 tablet by ity of tablet 13:13: mouth in [place] [address] the Medical morning. Branch montelukast 2023-0 Yes 10mg Take 1 Univ ers 10 mg 6-08 tablet by ity of tablet 13:13: mouth in [place] [address] the Medical morning. Branch montelukast 2023-0 Yes 10mg Take 1 Univ ers 10 mg 6-08 tablet by ity of tablet 13:13: mouth in [place] [address] the Medical morning. Branch montelukast 2023-0 Yes 10mg Take 1 Univ ers 10 mg 6-08 tablet by ity of tablet 13:13: mouth in [place] [address] the Medical morning. Branch montelukast 2023-0 Yes 10mg Take 1 Univ ers 10 mg 6-08 tablet by ity of tablet 13:13: mouth in [place] [address] the Medical morning. Branch montelukast 2023-0 Yes 10mg Take 1 Univ ers 10 mg 6-08 tablet by ity of tablet 13:13: mouth in [place] [address] the Medical morning. Branch montelukast 2023-0 Yes 10mg Take 1 Univ ers 10 mg 6-08 tablet by ity of tablet 13:13: mouth in [place] [address] the Medical morning. Branch montelukast 2023-0 Yes 10mg Take 1 Univ ers 10 mg 6-08 tablet by ity of tablet 13:13: mouth in [place] [address] the Medical morning. Branch vit 3-0 Yes 2{capsu Take 2 Univers C/E/Zn/natividad 6-08 le} capsules ity of r/lutein/ze 13:13: by mouth [place] 21 daily. Medical (PRESERVISI Branch ON AREDS-2 ORAL) vit 2023-0 Yes 2{capsu Take 2 Univers C/E/Zn/natividad 6-08 le} capsules ity of r/lutein/ze 13:13: by mouth [place] 21 daily. Medical (PRESERVISI Branch ON AREDS-2 ORAL) vit 2023-0 Yes 2{capsu Take 2 Univers C/E/Zn/natividad 6-08 le} capsules ity of r/lutein/ze 13:13: by mouth [place] 21 daily. Medical (PRESERVISI Branch ON AREDS-2 ORAL) vit 2022-0 Yes 2{capsu Take 2 Univers C/E/Zn/natividad 6-08 le} capsules ity of r/lutein/ze 13:13: by mouth [place] 21 daily. Medical (PRESERVISI Branch ON AREDS-2 ORAL) vit 2022-0 Yes 2{capsu Take 2 Univers C/E/Zn/natividad 6-08 le} capsules ity of r/lutein/ze 13:13: by mouth [place] 21 daily. Medical (PRESERVISI Branch ON AREDS-2 ORAL) vit 2022-0 Yes 2{capsu Take 2 Univers C/E/Zn/natividad 6-08 le} capsules ity of r/lutein/ze 13:13: by mouth [place] 21 daily. Medical (PRESERVISI Branch ON AREDS-2 ORAL) vit 2022-0 Yes 2{capsu Take 2 Univers C/E/Zn/natividad 6-08 le} capsules ity of r/lutein/ze 13:13: by mouth [place] 21 daily. Medical (PRESERVISI Branch ON AREDS-2 ORAL) vit 2022-0 Yes 2{capsu Take 2 Univers C/E/Zn/natividad 6-08 le} capsules ity of r/lutein/ze 13:13: by mouth [place] 21 daily. Medical (PRESERVISI Branch ON AREDS-2 ORAL) vit 2022-0 Yes 2{capsu Take 2 Univers C/E/Zn/natividad 6-08 le} capsules ity of r/lutein/ze 13:13: by mouth [place] 21 daily. Medical (PRESERVISI Branch ON AREDS-2 ORAL) vit 2022-0 Yes 2{capsu Take 2 Univers C/E/Zn/natividad 6-08 le} capsules ity of r/lutein/ze 13:13: by mouth [place] 21 daily. Medical (PRESERVISI Branch ON AREDS-2 ORAL) vit 2022-0 Yes 2{capsu Take 2 Univers C/E/Zn/natividad 6-08 le} capsules ity of r/lutein/ze 13:13: by mouth [place] 21 daily. Medical (PRESERVISI Branch ON AREDS-2 ORAL) vit 2022-0 Yes 2{capsu Take 2 Univers C/E/Zn/natividad 6-08 le} capsules ity of r/lutein/ze 13:13: by mouth [place] 21 daily. Medical (PRESERVISI Branch ON AREDS-2 ORAL) vit 2022-0 Yes 2{capsu Take 2 Univers C/E/Zn/natividad 6-08 le} capsules ity of r/lutein/ze 13:13: by mouth [place] 21 daily. Medical (PRESERVISI Branch ON AREDS-2 ORAL) vit 2022-0 Yes 2{capsu Take 2 Univers C/E/Zn/natividad 6-08 le} capsules ity of r/lutein/ze 13:13: by mouth [place] 21 daily. Medical (PRESERVISI Branch ON AREDS-2 ORAL) vit 2022-0 Yes 2{capsu Take 2 Univers C/E/Zn/natividad 6-08 le} capsules ity of r/lutein/ze 13:13: by mouth [place] 21 daily. Medical (PRESERVIS[facility] Branch ON AREDS-2 ORAL) vit 2022-0 Yes 2{capsu Take 2 [facility] C/E/Zn/natividad 6-08 le} capsules ity of r/lutein/ze 13:13: by mouth [place] 21 daily. Medical (PRESERVISI Branch ON AREDS-2 ORAL) vit 2022-0 Yes 2{capsu Take 2 [facility] C/E/Zn/natividad 6-08 le} capsules ity of r/lutein/ze 13:13: by mouth [place] 21 daily. Medical (PRESERVISI Branch ON AREDS-2 ORAL) vit 202-0 Yes 2{capsu Take 2 [facility] C/E/Zn/natividad 6-08 le} capsules ity of r/lutein/ze 13:13: by mouth [place] 21 daily. Medical (PRESERVISI Branch ON AREDS-2 ORAL) vit 202-0 Yes 2{capsu Take 2 [facility] C/E/Zn/natividad 6-08 le} capsules ity of r/lutein/ze 13:13: by mouth [place] 21 daily. Medical (PRESERV[facility]I Branch ON AREDS-2 ORAL) vit 2022-0 Yes 2{capsu Take 2 [facility] C/E/Zn/natividad 6-08 le} capsules ity of r/lutein/ze 13:13: by mouth [place] 21 daily. Medical (PRESERVISI Branch ON AREDS-2 ORAL) vit 2022-0 Yes 2{capsu Take 2 [facility] C/E/Zn/natividad 6-08 le} capsules ity of r/lutein/ze 13:13: by mouth [place] 21 daily. Medical (PRESERV[facility]I Branch ON AREDS-2 ORAL) vit 202-0 Yes 2{capsu Take 2 [facility] C/E/Zn/natividad 6-08 le} capsules ity of r/lutein/ze 13:13: by mouth [place] 21 daily. Medical (PRESERV[facility]I Branch ON AREDS-2 ORAL) vit 2022-0 Yes 2{capsu Take 2 [facility] C/E/Zn/natividad 6-08 le} capsules ity of r/lutein/ze 13:13: by mouth [place] 21 daily. Medical (PRESERV[facility] Branch ON AREDS-2 ORAL) vit 202-0 Yes 2{capsu Take 2 [facility] C/E/Zn/natividad 6-08 le} capsules ity of r/lutein/ze 13:13: by mouth [place] 21 daily. Medical (PRESERV[facility]I Branch ON AREDS-2 ORAL) vit 2022-0 Yes 2{capsu Take 2 [facility] C/E/Zn/natividad 6-08 le} capsules ity of r/lutein/ze 13:13: by mouth [place] 21 daily. Medical ([facility]ERV[facility] Branch ON AREDS-2 ORAL) vit 202-0 Yes 2{capsu Take 2 [facility] C/E/Zn/natividad 6-08 le} capsules ity of r/lutein/ze 13:13: by mouth [place] 21 daily. Medical (PRESERV[facility]I Branch ON AREDS-2 ORAL) vit 2022-0 Yes 2{capsu Take 2 [facility] C/E/Zn/natividad 6-08 le} capsules ity of r/lutein/ze 13:13: by mouth [place] 21 daily. Medical ([facility] Branch ON AREDS-2 ORAL) vit 2022-0 Yes 2{capsu Take 2 [facility] C/E/Zn/natividad 6-08 le} capsules ity of r/lutein/ze 13:13: by mouth [place] 21 daily. Medical ([facility]I Branch ON AREDS-2 ORAL) vit 2022-0 Yes 2{capsu Take 2 [facility] C/E/Zn/natividad 6-08 le} capsules ity of r/lutein/ze 13:13: by mouth [place] 21 daily. Medical (PRESERV[facility]I Branch ON AREDS-2 ORAL) vit 2022-0 Yes 2{capsu Take 2 [facility] C/E/Zn/natividad 6-08 le} capsules ity of r/lutein/ze 13:13: by mouth [place] 21 daily. Medical ([facility] Branch ON AREDS-2 ORAL) vit 2022-0 Yes 2{capsu Take 2 [facility] C/E/Zn/natividad 6-08 le} capsules ity of r/lutein/ze 13:13: by mouth [place] 21 daily. Medical (PRESERV[facility]I Branch ON AREDS-2 ORAL) vit 2022-0 Yes 2{capsu Take 2 [facility] C/E/Zn/natividad 6-08 le} capsules ity of r/lutein/ze 13:13: by mouth [place] 21 daily. Medical (PRESERV[facility]I Branch ON AREDS-2 ORAL) vit 2022-0 Yes 2{capsu Take 2 [facility] C/E/Zn/natividad 6-06 le} capsules ity of r/lutein/ze 17:18: by mouth [place] 56 daily. Medical (PRESERV[facility]I Branch ON AREDS-2 ORAL) montelukast 2022-0 Yes 10mg Take 1 Univ ers 10 mg 6-06 tablet by ity of tablet 17:18: mouth in [place] 56 the Medical morning. Branch vit 2022-0 Yes 2{capsu Take 2 [facility] C/E/Zn/natividad 6-06 le} capsules ity of r/lutein/ze 17:18: by mouth [place] 56 daily. Medical (PRESERVISI Branch ON AREDS-2 ORAL) montelukast 2022-0 Yes 10mg Take 1 Univ ers 10 mg 6-06 tablet by ity of tablet 17:18: mouth in [place] 56 the Medical morning. Branch vit 2022-0 Yes 2{capsu Take 2 [facility] C/E/Zn/natividad 6-06 le} capsules ity of r/lutein/ze 17:18: by mouth [place] 56 daily. Medical (PRESERVISI Branch ON AREDS-2 ORAL) montelukast 2022-0 Yes 10mg Take 1 Univ ers 10 mg 6-06 tablet by ity of tablet 17:18: mouth in [place] 56 the Medical morning. Branch FLUoxetine 2022-0 Yes 10mg 10 mg, Unive rs (PROZAC) 6-06 Oral, ity of capsule 10 14:00: DAILY, [place] mg 00 First dose Medical on [facility] 12/20/22 at 0900, Until Discontinu ed, Routine montelukast 2022-0 Yes 10mg 10 mg, Univ ers (SINGULAIR) 6-06 Oral, ity of tablet 10 14:00: DAILY, [place] mg 00 First dose Medical on [facility] 12/20/22 at 0900, Until Discontinu ed, Routine amLODIPine 2022-0 Yes 10mg 10 mg, Unive rs (NORVASC) 6-06 Oral, ity of tablet 10 14:00: DAILY, [place] mg 00 First dose Medical on [facility] 12/20/22 at 0900, Until Discontinu ed, Routine FLUoxetine 2022-0 Yes 10mg 10 mg, Unive rs (PROZAC) 6-06 Oral, ity of capsule 10 14:00: DAILY, [place] mg 00 First dose Medical on [facility] 12/20/22 at 0900, Until Discontinu ed, Routine montelukast 3-0 Yes 10mg 10 mg, Univ ers (SINGULAIR) 6-06 Oral, ity of tablet 10 14:00: DAILY, [place] mg 00 First dose Medical on [facility] 12/20/22 at 0900, Until Discontinu ed, Routine amLODIPine 2023-0 Yes 10mg 10 mg, Unive rs (NORVASC) 6-06 Oral, ity of tablet 10 14:00: DAILY, [place] mg 00 First dose Medical on Mon12/20/22 at 0900, Until Discontinu ed, Routine levothyroxi 3-0 Yes 75ug 75 mcg, Uni vers ne 6-06 Oral, ity of (SYNTHROID) 11:00: QAM-0600, [place] tablet 75 00 First dose Medi demar mcg on Mon12/20/22 at 0600, Until Discontinu ed, Routine levothyroxi 2023-0 Yes 75ug 75 mcg, Uni vers ne 6-06 Oral, ity of (SYNTHROID) 11:00: QAM-0600, [place] tablet 75 00 First dose Medi dem[place] mcg on Mon12/20/22 at 0600, Until Discontinu ed, Routine montelukast 3-0 Yes 10mg Take 1 Univ ers 10 mg 12-20 tablet by ity of tablet 09:03: mouth in [place] 48 the Medical morning. Branch HYDROcodone 2022-0 Yes 1{tbl} 1 tablet, Univers -acetaminop 6-06 Oral, ity of hen (NORCO 03:08: Q6HPRN, [place] 5) 5-325 mg 09 Starting Medi dem[place] tablet 1 on Mon tablet 12/19/22 at 2208, Until Discontinu ed, Routine, Pain (scale 4-6) HYDROcodone 3-0 Yes 1{tbl} 1 tablet, Univers -acetaminop 6-06 Oral, ity of hen (NORCO 03:08: Q6HPRN, [place] 5) 5-325 mg 09 Starting Medi demar tablet 1 on Mon Branch tablet 12/19/22 at 2208, Until Discontinu ed, Routine, Pain (scale 4-6) HYDROmorpho 2023-0 Yes .5mg 0.5 mg, Uni vers ne 6-06 Slow IV ity of (DILAUDID) 01:11: Push, [place] injection 47 Q4HPRN, Medical 0.5 mg Starting Branch on Mon12/19/22 at 2011, Until Discontinu ed, Routine, Pain (scale 7-10)
U se approved by (Faculty): [employer] PROVIDER HYDROmorpho 2023-0 Yes .5mg 0.5 mg, Uni vers ne 6-06 Slow IV ity of (DILAUDID) 01:11: Push, [place] injection 47 Q4HPRN, Medical 0.5 mg Starting Branch on Mon12/19/22 at 2010, Until Discontinu ed, Routine, Pain (scale 7-10)
U se approved by (Faculty): [employer] PROVIDER docusate 2022-0 Yes 100mg 100 mg, Unive rs (COLACE) 6-06 Oral, ity of capsule 100 01:00: Q12H, [place] mg 00 First dose Medical on Mon [place] 12/19/22 at 1999, Until Discontinu ed, Routine hydrALAZINE 2022-0 Yes 50mg 50 mg, Univ ers (APRESOLINE - Oral, BID, it y of ) tablet 50 01:00: First dose [place] mg [address] [facility] 12/19/22 at Branch 1999, Until Discontinu ed, Routine docusate 2022-0 Yes 100mg 100 mg, Unive rs (COLACE) 6-06 Oral, ity of capsule 100 01:00: Q12H, [place] mg 00 First dose Medical on Mon [place] 12/19/22 at 1999, Until Discontinu ed, Routine hydrALAZINE 2022-0 Yes 50mg 50 mg, Univ ers (APRESOLINE -06 Oral, BID, it y of ) tablet 50 01:00: First dose [place] mg [address] [facility] 12/19/22 at Branch 1999, Until Discontinu ed, Routine atorvastati 3-0 Yes 20mg 20 mg, Univ ers n (LIPITOR) 6-05 Oral, QPM, it y of tablet 20 22:00: First dose [place] mg [address] [facility] 12/19/22 at Branch 1700, Until Discontinu ed, Routine atorvastati 2023-0 Yes 20mg 20 mg, Univ ers n (LIPITOR) 6-05 Oral, QPM, it y of tablet 20 22:00: First dose [place] mg [address] [facility] 12/19/22 at Branch 1700, Until Discontinu ed, Routine aspirin 2023-0 2023- No 325mg 325 mg, Unive rs E.C. 12-19 07-03 Oral, BID ity of (ECOTRIN) 22:00: 21:59 MEALS, 56 [place] tablet 325 00 :00 doses, Medical mg First dose Branch on Mon12/19/22 at 1999, Last dose on Mon01/16/23 at 0800, Routine aspirin 2022-0 2022- No 325mg 325 mg, Unive rs E.C. 12-19 Oral, BID ity of (ECOTRIN) 22:00: 21:59 MEALS, 56 [place] tablet 325 00 :00 doses, Medical mg First dose Branch on Mon12/19/22 at 2000, Last dose on Mon01/16/23 at 0800, Routine benztropine 2022-0 Yes 1mg 1 mg, Unive rs (COGENTIN) 12-19 Oral, ity of tablet 1 mg 18:45: BIDPRN, [place] 03 Starting Medical on Mon [place] 12/19/22 at 1345, Until Discontinu ed, Routine, tremor benztropine 2022-0 Yes 1mg 1 mg, Unive rs (COGENTIN) 12-19 Oral, ity of tablet 1 mg 18:45: BIDPRN, [place] 03 Starting Medical on Mon [place] 12/19/22 at 1345, Until Discontinu ed, Routine, tremor bupivacaine 2022-2022- No PRN, Unive rs (preserv 12-19 Starting ity of free) 16:13: 17:40 on Mon [place] (SENSORCAIN 00 :53 12/19/22 at Med ical E MPF) 0.25 1113, Branch % (2.5 Intra-op mg/mL) 30 mL, BUPivacaine liposome (PF) (EXPAREL (PF)) 1.3 % (13.3 mg/mL) 266 mg, NaCl 0.9% (NS) 70 mL sodium 2022-0 2022- No PRN, Univers chloride 12-19 Starting ity of 0.9 % 16:13: 17:40 on Mon [place] irrigation 00 :53 12/19/22 at Medi demar solution 1113, Branch Until Mon12/19/22 at 1240, Intra-op sodium 3-0 2022- No 30mL 30 mL, Univers citrate-cit 12-19 Oral, ONCE i ty of thelma acid 15:00: 14:09 NOW, [address] [place] [address] (BICITRA) 00 :00 dose, On Medica l 500-334 12/19/22 Branch mg/5 mL at 1000, solution 30 Routine mL sodium No 30mL 30 mL, Univers citrate-cit 12-19 Oral, ONCE i ty of thelma acid 15:00: 14:09 NOW, 1 [place] (BICITRA) 00 :00 dose, On Medica l 500-334 Mon12/19/22 Branch mg/5 mL at 1000, solution 30 Routine mL vit Yes 2{capsu Take 2 [facility] C/E/Zn/natividad 12-19 le} capsules ity of r/lutein/ze 13:50: by mouth [place] 17 daily. Medical (PRESERVISI Branch ON AREDS-2 ORAL) oxyCODONE-a No 2{tbl} 2 tablet, Univers cetaminophe 12-19 Oral, ity of n 12:15: 12:13 ONCE, 1 [place] (PERCOCET) 00 :00 dose, On Medic al 5-325 mg Mon12/19/22 Branc h per tablet at 0715, 2 tablet Routine, DSU Pre-op celecoxib 2022- No 400mg 400 mg, Uni vers (CELEBREX) 12-19 Oral, ity of capsule 400 12:15: 12:13 ONCE, 1 [place] mg 00 :00 dose, On Medical Mon12/19/22 Branch at 0715, Routine, DSU Pre-op gabapentin No 300mg 300 mg, Un kayla (NEURONTIN) 12-19 Oral, ity of capsule 300 12:15: 12:13 ONCE, 1 [place] mg 00 :00 dose, On Medical Mon12/19/22 Branch at 0715, Routine, DSU Pre-op lactated No 1000mL at 42 Unive rs ringers IV 12-19-05 mL/hr, ity of infusion 12:15: 12:38 1,000 mL, [place] 1,000 mL 00 :00 IV Medical Infusion, Branch ONCE, 1 dose, On Mon12/19/22 at 0715, Routine, DSU Pre-op oxyCODONE-a 2022- No 2{tbl} 2 tablet, Univers cetaminophe 12-19 Oral, ity of n 12:15: 12:13 ONCE, 1 [place] (PERCOCET) 00 :00 dose, On Medic al 5-325 mg Mon12/19/22 Branc h per tablet at 0715, 2 tablet Routine, DSU Pre-op celecoxib 2022- No 400mg 400 mg, Uni vers (CELEBREX) 12-19 Oral, ity of capsule 400 12:15: 12:13 ONCE, 1 [place] mg 00 :00 dose, On Medical Mon12/19/22 Branch at 0715, Routine, DSU Pre-op gabapentin No 300mg 300 mg, Un kayla (NEURONTIN) 12-19 Oral, ity of capsule 300 12:15: 12:13 ONCE, 1 [place] mg 00 :00 dose, On Medical Mon12/19/22 Branch at 0715, Routine, DSU Pre-op lactated No 1000mL at 42 Unive rs ringers IV 12-19 mL/hr, ity of infusion 12:15: 12:38 1,000 mL, [place] 1,000 mL 00 :00 IV Medical Infusion, Branch ONCE, 1 dose, On Mon12/19/22 at 0715, Routine, DSU Pre-op oxyCODONE-a 2022- No 2{tbl} Uni vers cetaminophe 12-19 ity of n 05:00: 16:59 [place] (PERCOCET) 00 :00 Medical 5-325 mg Branch per tablet 2 tablet tranexamic 2022- No 1000mg Univ ers acid 12-19 ity of (CYKLOKAPRO 05:00: 16:59 [place] N) 1,000 mg 00 :00 Medical in NaCl Branch 0.9% (NS) 250 mL piggyback oxyCODONE-a 2022- No 2{tbl} Uni vers cetaminophe 12-19 ity of n 05:00: 16:59 [place] (PERCOCET) 00 :00 Medical 5-325 mg Branch per tablet 2 tablet tranexamic 2022- No 1000mg Univ ers acid 6-05 06-05 ity of (CYKLOKAPRO 05:00: 16:59 [place] N) 1,000 mg 00 :00 Medical in NaCl Branch 0.9% (NS) 250 mL piggyback oxyCODONE-a 2022- No 2{tbl} Uni vers cetaminophe 6-05 06-05 ity of n 05:00: 16:59 [place] (PERCOCET) 00 :00 Medical 5-325 mg Branch per tablet 2 tablet tranexamic 2022- No 1000mg Univ ers acid 6-05 06-05 ity of (CYKLOKAPRO 05:00: 16:59 [place] N) 1,000 mg 00 :00 Medical in NaCl Branch 0.9% (NS) 250 mL piggyback oxyCODONE-a 2022- No 2{tbl} Uni vers cetaminophe 6 06-05 ity of n 05:00: 16:59 [place] (PERCOCET) 00 :00 Medical 5-325 mg Branch per tablet 2 tablet tranexamic 2022- No 1000mg Univ ers acid 6-05 06-05 ity of (CYKLOKAPRO 05:00: 16:59 [place] N) 1,000 mg 00 :00 Medical in NaCl Branch 0.9% (NS) 250 mL piggyback oxyCODONE-a 2022- No 2{tbl} Uni vers cetaminophe 605 06-05 ity of n 05:00: 16:59 [place] (PERCOCET) 00 :00 Medical 5-325 mg Branch per tablet 2 tablet tranexamic 2022- No 1000mg Univ ers acid 6-05 06-05 ity of (CYKLOKAPRO 05:00: 16:59 [place] N) 1,000 mg 00 :00 Medical in NaCl Branch 0.9% (NS) 250 mL piggyback oxyCODONE-a 2022- No 2{tbl} Uni vers cetaminophe 6-05 06-05 ity of n 05:00: 16:59 [place] (PERCOCET) 00 :00 Medical 5-325 mg Branch per tablet 2 tablet tranexamic 2023-0 2023- No 1000mg Univ ers acid 12-19-05 ity of (CYKLOKAPRO 05:00: 16:59 [place] N) 1,000 mg 00 :00 Medical in [facility] Branch 0.9% (NS) 250 mL piggyback aspirin 325 3-0 3- No [id number] 325mg Take 1 Univers mg tablet -11 20-04 tablet by ity of 00:00: 04:59 mouth in [place] 00 :00 the [facility] and 1 tablet in the evening. Take with meals. Do all this for 28 days. aspirin 325 2022-0 3- No [id number] 325mg Take 1 Univers mg tablet 12-19- tablet by ity of 00:00: 04:59 mouth in [place] 00 :00 the [facility] and 1 tablet in the evening. Take with meals. Do all this for 28 days. aspirin 325 2022-0 2023- No [id number] 325mg Take 1 Univers mg tablet 12-19- tablet by ity of 00:00: 04:59 mouth in [place] 00 :00 the [facility] and 1 tablet in the evening. Take with meals. Do all this for 28 days. aspirin 325 2022-0 3- No [id number] 325mg Take 1 Univers mg tablet 12-19- tablet by ity of 00:00: 04:59 mouth in [place] 00 :00 the [facility] and 1 tablet in the evening. Take with meals. Do all this for 28 days. aspirin 325 3-0 3- No [id number] 325mg Take 1 Univers mg tablet 12-19- tablet by ity of 00:00: 04:59 mouth in [place] 00 :00 the [facility] and 1 tablet in the evening. Take with meals. Do all this for 28 days. aspirin 325 3-0 3- No [id number] 325mg Take 1 Univers mg tablet 12-19-04 tablet by ity of 00:00: 04:59 mouth in [place] 00 :00 [facility] and 1 tablet in the evening. Take with meals. Do all this for 28 days. aspirin 325 3-0 2023- No [id number] 325mg Take 1 Univers mg tablet 12-19- tablet by ity of 00:00: 04:59 mouth in [place] 00 :00 the Medical morning Branch and 1 tablet in the evening. Take with meals. Do all this for 28 days. aspirin 325 3-0 2022- No [id number] 325mg Take 1 Univers mg tablet 6- 07-04 tablet by ity of 00:00: 04:59 mouth in [place] 00 :00 the Medical morning Branch and 1 tablet in the evening. Take with meals. Do all this for 28 days. aspirin 325 2022-0 2022- No [id number] 325mg Take 1 Univers mg tablet 6-11 20-04 tablet by ity of 00:00: 04:59 mouth in [place] 00 :00 the Medical morning Branch and 1 tablet in the evening. Take with meals. Do all this for 28 days. aspirin 325 2022-0 2022- No [id number] 325mg Take 1 Univers mg tablet -11 20-04 tablet by ity of 00:00: 04:59 mouth in [place] 00 :00 the Medical morning Branch and 1 tablet in the evening. Take with meals. Do all this for 28 days. aspirin 325 2022-0 2022- No [id number] 325mg Take 1 Univers mg tablet 12-19-04 tablet by ity of 00:00: 04:59 mouth in [place] 00 :00 the Medical morning Branch and 1 tablet in the evening. Take with meals. Do all this for 28 days. aspirin 325 2022-0 2022- No [id number] 325mg Take 1 Univers mg tablet 12-19- tablet by ity of 00:00: 04:59 mouth in [place] 00 :00 the Medical morning Branch and 1 tablet in the evening. Take with meals. Do all this for 28 days. aspirin 325 2022-0 2022- No [id number] 325mg Take 1 Univers mg tablet 12-19-04 tablet by ity of 00:00: 04:59 mouth in [place] 00 :00 the Medical morning Branch and 1 tablet in the evening. Take with meals. Do all this for 28 days. aspirin 325 3-0 2022- No [id number] 325mg Take 1 Univers mg tablet 6-11 20-04 tablet by ity of 00:00: 04:59 mouth in [place] 00 :00 the Medical morning Branch and 1 tablet in the evening. Take with meals. Do all this for 28 days. aspirin 325 3-0 2022- No [id number] 325mg Take 1 Univers mg tablet 6- 07-04 tablet by ity of 00:00: 04:59 mouth in [place] 00 :00 the Medical morning Branch and 1 tablet in the evening. Take with meals. Do all this for 28 days. aspirin 325 2022-0 3- No [id number] 325mg Take 1 Univers mg tablet 12-19- tablet by ity of 00:00: 04:59 mouth in [place] 00 :00 the Medical morning Branch and 1 tablet in the evening. Take with meals. Do all this for 28 days. aspirin 325 2022-0 2022- No [id number] 325mg Take 1 Univers mg tablet 12-19- tablet by ity of 00:00: 04:59 mouth in [place] 00 :00 the Medical morning Branch and 1 tablet in the evening. Take with meals. Do all this for 28 days. aspirin 325 2022-0 2022- No [id number] 325mg Take 1 Univers mg tablet 12-19- tablet by ity of 00:00: 04:59 mouth in [place] 00 :00 the [facility] morning Branch and 1 tablet in the evening. Take with meals. Do all this for 28 days. aspirin 325 2022-0 2022- No [id number] 325mg Take 1 Univers mg tablet 12-19- tablet by ity of 00:00: 04:59 mouth in [place] 00 :00 the [facility] morning Branch and 1 tablet in the evening. Take with meals. Do all this for 28 days. aspirin 325 2022-0 2022- No [id number] 325mg Take 1 Univers mg tablet 12-19 tablet by ity of 00:00: 04:59 mouth in [place] 00 :00 the [facility] morning Branch and 1 tablet in the evening. Take with meals. Do all this for 28 days. aspirin 325 2022-0 3- No [id number] 325mg Take 1 Univers mg tablet 12-19- tablet by ity of 00:00: 04:59 mouth in [place] 00 :00 the Medical morning Branch and 1 tablet in the evening. Take with meals. Do all this for 28 days. aspirin 325 3-0 3- No [id number] 325mg Take 1 Univers mg tablet 12-19-04 tablet by ity of 00:00: 04:59 mouth in [place] 00 :00 the Medical morning Branch and 1 tablet in the evening. Take with meals. Do all this for 28 days. aspirin 325 3-0 3- No [id number] 325mg Take 1 Univers mg tablet 12-19-04 tablet by ity of 00:00: 04:59 mouth in [place] 00 :00 the Medical morning Branch and 1 tablet in the evening. Take with meals. Do all this for 28 days. aspirin 325 3-0 3- No [id number] 325mg Take 1 Univers mg tablet 12-19-04 tablet by ity of 00:00: 04:59 mouth in [place] 00 :00 the [facility] morning Branch and 1 tablet in the evening. Take with meals. Do all this for 28 days. aspirin 325 3-0 2022- No [id number] 325mg Take 1 Univers mg tablet 12-19- tablet by ity of 00:00: 04:59 mouth in [place] 00 :00 the [facility] morning Branch and 1 tablet in the evening. Take with meals. Do all this for 28 days. aspirin 325 2022-0 2022- No [id number] 325mg Take 1 Univers mg tablet 12-19- tablet by ity of 00:00: 04:59 mouth in [place] 00 :00 the [facility] morning Branch and 1 tablet in the evening. Take with meals. Do all this for 28 days. HYDROcodone 2022-2022- No 4647 1{tbl} Take 1 U nivers -acetaminop 6-05 06-13 tablet by it y of hen 5-325 00:00: 04:59 mouth [place] mg tablet 00 :00 every 6 Medical (six) Branch hours as needed for Pain (scale 4-6) or Pain (scale 7-10) for up to 7 days. Indication s: acute pain HYDROcodone 2022-0 2022- No 4647 1{tbl} Take 1 U nivers -acetaminop 6-05 06-13 tablet by it y of hen 5-325 00:00: 04:59 mouth [place] mg tablet 00 :00 every 6 Medical (six) Branch hours as needed for Pain (scale 4-6) or Pain (scale 7-10) for up to 7 days. Indication s: acute pain HYDROcodone 2022-0 2022- No 4647 1{tbl} Take 1 U nivers -acetaminop 6-05 06-13 tablet by it y of hen 5-325 00:00: 04:59 mouth [place] mg tablet 00 :00 every 6 Medical (six) Branch hours as needed for Pain (scale 4-6) or Pain (scale 7-10) for up to 7 days. Indication s: acute pain HYDROcodone No 4647 1{tbl} Take 1 U nivers -acetaminop 6-05 06-13 tablet by it y of hen 5-325 00:00: 04:59 mouth [place] mg tablet 00 :00 every 6 Medical (six) Branch hours as needed for Pain (scale 4-6) or Pain (scale 7-10) for up to 7 days. Indication s: acute pain HYDROcodone No 4647 1{tbl} Take 1 U nivers -acetaminop 6-05 06-13 tablet by it y of hen 5-325 00:00: 04:59 mouth [place] mg tablet 00 :00 every 6 Medical (six) Branch hours as needed for Pain (scale 4-6) or Pain (scale 7-10) for up to 7 days. Indication s: acute pain HYDROcodone No 4647 1{tbl} Take 1 U nivers -acetaminop 6-05 06-13 tablet by it y of hen 5-325 00:00: 04:59 mouth [place] mg tablet 00 :00 every 6 Medical (six) Branch hours as needed for Pain (scale 4-6) or Pain (scale 7-10) for up to 7 days. Indication s: acute pain HYDROcodone No 4647 1{tbl} Take 1 U nivers -acetaminop 6-05 06-13 tablet by it y of hen 5-325 00:00: 04:59 mouth [place] mg tablet 00 :00 every 6 Medical (six) Branch hours as needed for Pain (scale 4-6) or Pain (scale 7-10) for up to 7 days. Indication s: acute pain HYDROcodone No 4647 1{tbl} Take 1 U nivers -acetaminop 6-05 06-13 tablet by it y of hen 5-325 00:00: 04:59 mouth [place] mg tablet 00 :00 every 6 Medical (six) Branch hours as needed for Pain (scale 4-6) or Pain (scale 7-10) for up to 7 days. Indication s: acute pain HYDROcodone 2022-0 2022- No 4647 1{tbl} Take 1 U nivers -acetaminop 6-05 06-13 tablet by it y of hen 5-325 00:00: 04:59 mouth [place] mg tablet 00 :00 every 6 Medical (six) Branch hours as needed for Pain (scale 4-6) or Pain (scale 7-10) for up to 7 days. Indication s: acute pain HYDROcodone 2022- No 4647 1{tbl} Take 1 U nivers -acetaminop 6-05 06-13 tablet by it y of hen 5-325 00:00: 04:59 mouth [place] mg tablet 00 :00 every 6 Medical (six) Branch hours as needed for Pain (scale 4-6) or Pain (scale 7-10) for up to 7 days. Indication s: acute pain montelukast Yes 10mg Take 1 Univ ers 10 mg 5-23 tablet by ity of tablet 11:04: mouth in [place] [address] the Medical morning. [place] montelukast 0 Yes 10mg Take 1 Univ ers 10 mg 5-23 tablet by ity of tablet 11:04: mouth in [place] [address] the Medical morning. Branch montelukast 0 Yes 10mg Take 1 Univ ers 10 mg 5-23 tablet by ity of tablet 11:04: mouth in [place] [address] the Medical morning. Branch montelukast 0 Yes 10mg Take 1 Univ ers 10 mg 5-23 tablet by ity of tablet 11:04: mouth in [place] [address] the Medical morning. Branch montelukast 0 Yes 10mg Take 1 Univ ers 10 mg 5-23 tablet by ity of tablet 11:04: mouth in [place] [address] the Medical morning. Branch vit 2022-0 Yes 2{capsu Take 2 Univers C/E/Zn/natividad 5-23 le} capsules ity of r/lutein/ze 11:01: by mouth [place] axan 48 daily. Medical (PRESERVISI Branch ON AREDS-2 ORAL) vit 2022-0 Yes 2{capsu Take 2 Univers C/E/Zn/natividad 5-23 le} capsules ity of r/lutein/ze 11:01: by mouth [place] axan 48 daily. Medical (PRESERVISI Branch ON AREDS-2 ORAL) vit 2023-0 Yes 2{capsu Take 2 Univers C/E/Zn/natividad 5-23 le} capsules ity of r/lutein/ze 11:01: by mouth [place] axan 48 daily. Medical (PRESERVISI Branch ON AREDS-2 ORAL) vit 2023-0 Yes 2{capsu Take 2 Univers C/E/Zn/natividad 5-23 le} capsules ity of r/lutein/ze 11:01: by mouth [place] axan 48 daily. Medical (PRESERVISI Branch ON AREDS-2 ORAL) vit 2023-0 Yes 2{capsu Take 2 [facility] C/E/Zn/natividad 5-23 le} capsules ity of r/lutein/ze 11:01: by mouth [place] 48 daily. Medical ([facility] ON AREDS-2 ORAL) FLUoxetine 2023-0 Yes 10mg Take 1 Un[facility] rs 10 mg 5-11 capsule by ity of capsule 00:00: mouth in [place] 00 the Medical morning. Branch Takes a 40 mg and a 10 mg for a total of 50 mg daily FLUoxetine 2023-0 Yes 10mg Take 1 Unive rs 10 mg 5-11 capsule by ity of capsule 00:00: mouth in [place] the Medical morning. Branch Takes a 40 mg and a 10 mg for a total of 50 mg daily FLUoxetine 2023-0 Yes 10mg Take 1 Unive rs 10 mg 5-11 capsule by ity of capsule 00:00: mouth in [place] the Medical morning. Branch Takes a 40 mg and a 10 mg for a total of 50 mg daily FLUoxetine 2023-0 Yes 10mg Take 1 Unive rs 10 mg 5-11 capsule by ity of capsule 00:00: mouth in [place] the Medical morning. Branch Takes a 40 mg and a 10 mg for a total of 50 mg daily FLUoxetine 2023-0 Yes 10mg Take 1 Unive rs 10 mg 5-11 capsule by ity of capsule 00:00: mouth in [place] 00 the Medical morning. Branch Takes a 40 mg and a 10 mg for a total of 50 mg daily FLUoxetine 2023-0 Yes 10mg Take 1 Unive rs 10 mg 5-11 capsule by ity of capsule 00:00: mouth in [place] 00 the Medical morning. Branch Takes a 40 mg and a 10 mg for a total of 50 mg daily FLUoxetine 2023-0 Yes 10mg Take 1 Unive rs 10 mg 5-11 capsule by ity of capsule 00:00: mouth in [place] the morning. Branch Takes a 40 mg and a 10 mg for a total of 50 mg daily FLUoxetine 2023-0 Yes 10mg Take 1 Unive rs 10 mg 5-11 capsule by ity of capsule 00:00: mouth in [place] the morning. Branch Takes a 40 mg and a 10 mg for a total of 50 mg daily FLUoxetine 2023-0 Yes 10mg Take 1 Unive rs 10 mg 5-11 capsule by ity of capsule 00:00: mouth in [place] the morning. Branch Takes a 40 mg and a 10 mg for a total of 50 mg daily FLUoxetine 2023-0 Yes 10mg Take 1 Unive rs 10 mg 5-11 capsule by ity of capsule 00:00: mouth in [place] the morning. [place] Takes a 40 mg and a 10 mg for a total of 50 mg daily FLUoxetine 2023-0 Yes 10mg Take 1 Unive rs 10 mg 5-11 capsule by ity of capsule 00:00: mouth in [place] the morning. [place] Takes a 40 mg and a 10 mg for a total of 50 mg daily FLUoxetine 2023-0 Yes 10mg Take 1 Unive rs 10 mg 5-11 capsule by ity of capsule 00:00: mouth in [place] the morning. [place] Takes a 40 mg and a 10 mg for a total of 50 mg daily FLUoxetine 2023-0 Yes 10mg Take 1 Unive rs 10 mg 5-11 capsule by ity of capsule 00:00: mouth in [place] the morning. [place] Takes a 40 mg and a 10 mg for a total of 50 mg daily FLUoxetine 2023-0 Yes 10mg Take 1 Unive rs 10 mg 5-11 capsule by ity of capsule 00:00: mouth in [place] the Medical morning. Branch Takes a 40 mg and a 10 mg for a total of 50 mg daily FLUoxetine 2023-0 Yes 10mg Take 1 Unive rs 10 mg 5-11 capsule by ity of capsule 00:00: mouth in [place] the Medical morning. Branch Takes a 40 mg and a 10 mg for a total of 50 mg daily FLUoxetine 2023-0 Yes 10mg Take 1 Unive rs 10 mg 5-11 capsule by ity of capsule 00:00: mouth in [place] the morning. Branch Takes a 40 mg and a 10 mg for a total of 50 mg daily FLUoxetine 2023-0 Yes 10mg Take 1 Unive rs 10 mg 5-11 capsule by ity of capsule 00:00: mouth in [place] the morning. Branch Takes a 40 mg and a 10 mg for a total of 50 mg daily FLUoxetine 2023-0 Yes 10mg Take 1 Unive rs 10 mg 5-11 capsule by ity of capsule 00:00: mouth in [place] the morning. Branch Takes a 40 mg and a 10 mg for a total of 50 mg daily FLUoxetine 2023-0 Yes 10mg Take 1 Unive rs 10 mg 5-11 capsule by ity of capsule 00:00: mouth in [place] the morning. Branch Takes a 40 mg and a 10 mg for a total of 50 mg daily FLUoxetine 2023-0 Yes 10mg Take 1 Unive rs 10 mg 5-11 capsule by ity of capsule 00:00: mouth in [place] the morning. Branch Takes a 40 mg and a 10 mg for a total of 50 mg daily FLUoxetine 2023-0 Yes 10mg Take 1 Unive rs 10 mg 5-11 capsule by ity of capsule 00:00: mouth in [place] the morning. Branch Takes a 40 mg and a 10 mg for a total of 50 mg daily FLUoxetine 2023-0 Yes 10mg Take 1 Unive rs 10 mg 5-11 capsule by ity of capsule 00:00: mouth in [place] the morning. Branch Takes a 40 mg and a 10 mg for a total of 50 mg daily FLUoxetine 2023-0 Yes 10mg Take 1 Unive rs 10 mg 5-11 capsule by ity of capsule 00:00: mouth in [place] the morning. Branch Takes a 40 mg and a 10 mg for a total of 50 mg daily FLUoxetine 2023-0 Yes 10mg Take 1 Unive rs 10 mg 5-11 capsule by ity of capsule 00:00: mouth in [place] the morning. Branch Takes a 40 mg and a 10 mg for a total of 50 mg daily FLUoxetine 2023-0 Yes 10mg Take 1 Unive rs 10 mg 5-11 capsule by ity of capsule 00:00: mouth in [place] the Medical morning. Branch Takes a 40 mg and a 10 mg for a total of 50 mg daily FLUoxetine 2023-0 Yes 10mg Take 1 Unive rs 10 mg 5-11 capsule by ity of capsule 00:00: mouth in [place] the Medical morning. Branch Takes a 40 mg and a 10 mg for a total of 50 mg daily FLUoxetine 2023-0 Yes 10mg Take 1 Unive rs 10 mg 5-11 capsule by ity of capsule 00:00: mouth in [place] the morning. Branch Takes a 40 mg and a 10 mg for a total of 50 mg daily FLUoxetine 2023-0 Yes 10mg Take 1 Unive rs 10 mg 5-11 capsule by ity of capsule 00:00: mouth in [place] the morning. Branch Takes a 40 mg and a 10 mg for a total of 50 mg daily FLUoxetine 2023-0 Yes 10mg Take 1 Unive rs 10 mg 5-11 capsule by ity of capsule 00:00: mouth in [place] the morning. Branch Takes a 40 mg and a 10 mg for a total of 50 mg daily FLUoxetine 2023-0 Yes 10mg Take 1 Unive rs 10 mg 5-11 capsule by ity of capsule 00:00: mouth in [place] the morning. Branch Takes a 40 mg and a 10 mg for a total of 50 mg daily FLUoxetine 2023-0 Yes 10mg Take 1 Unive rs 10 mg 5-11 capsule by ity of capsule 00:00: mouth in [place] the morning. Branch Takes a 40 mg and a 10 mg for a total of 50 mg daily FLUoxetine 2023-0 Yes 10mg Take 1 Unive rs 10 mg 5-11 capsule by ity of capsule 00:00: mouth in [place] the morning. Branch Takes a 40 mg and a 10 mg for a total of 50 mg daily FLUoxetine 2023-0 Yes 10mg Take 1 Unive rs 10 mg 5-11 capsule by ity of capsule 00:00: mouth in [place] the Medical morning. Branch Takes a 40 mg and a 10 mg for a total of 50 mg daily FLUoxetine 2023-0 Yes 10mg Take 1 Unive rs 10 mg 5-11 capsule by ity of capsule 00:00: mouth in [place] the morning. Branch Takes a 40 mg and a 10 mg for a total of 50 mg daily FLUoxetine 2023-0 Yes 10mg Take 1 Unive rs 10 mg 5-11 capsule by ity of capsule 00:00: mouth in [place] the Medical morning. Branch Takes a 40 mg and a 10 mg for a total of 50 mg daily FLUoxetine 2023-0 Yes 10mg Take 1 Unive rs 10 mg 5-11 capsule by ity of capsule 00:00: mouth in [place] the morning. Branch Takes a 40 mg and a 10 mg for a total of 50 mg daily FLUoxetine 2023-0 Yes 10mg Take 1 Unive rs 10 mg 5-11 capsule by ity of capsule 00:00: mouth in [place] the morning. Branch Takes a 40 mg and a 10 mg for a total of 50 mg daily FLUoxetine 2023-0 Yes 10mg Take 1 Unive rs 10 mg 5-11 capsule by ity of capsule 00:00: mouth in [place] the morning. [place] Takes a 40 mg and a 10 mg for a total of 50 mg daily FLUoxetine 2023-0 Yes 10mg Take 1 Unive rs 10 mg 5-11 capsule by ity of capsule 00:00: mouth in [place] the morning. [place] Takes a 40 mg and a 10 mg for a total of 50 mg daily FLUoxetine 2023-0 Yes 10mg Take 1 Unive rs 10 mg 5-11 capsule by ity of capsule 00:00: mouth in [place] the morning. [place] Takes a 40 mg and a 10 mg for a total of 50 mg daily FLUoxetine 2023-0 Yes 10mg Take 1 Unive rs 10 mg 5-11 capsule by ity of capsule 00:00: mouth in [place] the . [place] Takes a 40 mg and a 10 mg for a total of 50 mg daily tc 2022- No [id number] 38.9mCi 38.9 Univ ers 99m-tetrofo 11-22 millicurie i ty of smin 16:45: 16:40 , [place] (MYOVIEW) 00 :00 Intravenou Medi demar injection s, ONCE, 1 Bran ch 38.9 dose, On millicurie Mon11/22/22 at 1145, Routine regadenoson 2022- No [id number] .4mg 0.4 mg, IV [facility] (LEXISCAN) 11-22 Push, ity of injection 15:00: 16:34 [place]CE, 1 [place] 0.4 mg 00 :00 dose, On Medical Mon11/22/22 Branch at 1000, Routine
membership director approving Restricted medication : [place] tc 2022-0 3- No [id number] 15.3mCi 15.3 [facility] ers 99m-tetrofo 11-22 millicurie i ty of smin 14:00: 13:52 , [place] (MYOVIEW) 00 :00 Intravenou Medi demar injection s, ONCE, 1 Bran ch 15.3 dose, On millicurie 11/22/22 at 0900, Routine albuterol 3-0 Yes 2.5mg Inhale 3 Uni vers 2.5 mg /3 5-01 mL as ity of mL (0.083 00:00: needed. [place] %) 00 Medical nebulizer Branch solution albuterol 3-0 Yes 2.5mg Inhale 3 Uni vers 2.5 mg /3 5-01 mL as ity of mL (0.083 00:00: needed. [place] %) 00 Medical nebulizer Branch solution albuterol 3-0 Yes 2.5mg Inhale 3 Uni vers 2.5 mg /3 5-01 mL as ity of mL (0.083 00:00: needed. [place] %) 00 Medical nebulizer Branch solution albuterol 2023-0 Yes 2.5mg Inhale 3 Uni vers 2.5 mg /3 5-01 mL as ity of mL (0.083 00:00: needed. [place] %) 00 Medical nebulizer Branch solution albuterol 2023-0 Yes 2.5mg Inhale 3 Uni vers 2.5 mg /3 5-01 mL as ity of mL (0.083 00:00: needed. [place] %) 00 Medical nebulizer Branch solution albuterol 2023-0 Yes 2.5mg Inhale 3 Uni vers 2.5 mg /3 5-01 mL as ity of mL (0.083 00:00: needed. [place] %) 00 Medical nebulizer Branch solution albuterol 2023-0 Yes 2.5mg Inhale 3 Uni vers 2.5 mg /3 5-01 mL as ity of mL (0.083 00:00: needed. [place] %) 00 Medical nebulizer Branch solution albuterol 2023-0 Yes 2.5mg Inhale 3 Uni vers 2.5 mg /3 5-01 mL as ity of mL (0.083 00:00: needed. [place] %) 00 Medical nebulizer Branch solution albuterol 2023-0 Yes 2.5mg Inhale 3 Uni vers 2.5 mg /3 5-01 mL as ity of mL (0.083 00:00: needed. [place] %) 00 Medical nebulizer Branch solution albuterol 2023-0 Yes 2.5mg Inhale 3 Uni vers 2.5 mg /3 5-01 mL as ity of mL (0.083 00:00: needed. [place] %) 00 Medical nebulizer Branch solution albuterol 2023-0 Yes 2.5mg Inhale 3 Uni vers 2.5 mg /3 5-01 mL as ity of mL (0.083 00:00: needed. [place] %) 00 Medical nebulizer Branch solution albuterol 2023-0 Yes 2.5mg Inhale 3 Uni vers 2.5 mg /3 5-01 mL as ity of mL (0.083 00:00: needed. [place] %) 00 Medical nebulizer Branch solution albuterol 2023-0 Yes 2.5mg Inhale 3 Uni vers 2.5 mg /3 5-01 mL as ity of mL (0.083 00:00: needed. [place] %) 00 Medical nebulizer Branch solution albuterol 2023-0 Yes 2.5mg Inhale 3 Uni vers 2.5 mg /3 5-01 mL as ity of mL (0.083 00:00: needed. [place] %) 00 Medical nebulizer Branch solution albuterol 2023-0 Yes 2.5mg Inhale 3 Uni vers 2.5 mg /3 5-01 mL as ity of mL (0.083 00:00: needed. [place] %) 00 Medical nebulizer Branch solution albuterol 2023-0 Yes 2.5mg Inhale 3 Uni vers 2.5 mg /3 5-01 mL as ity of mL (0.083 00:00: needed. [place] %) 00 Medical nebulizer Branch solution albuterol 2023-0 Yes 2.5mg Inhale 3 Uni vers 2.5 mg /3 5-01 mL as ity of mL (0.083 00:00: needed. [place] %) 00 Medical nebulizer Branch solution albuterol 2023-0 Yes 2.5mg Inhale 3 Uni vers 2.5 mg /3 5-01 mL as ity of mL (0.083 00:00: needed. [place] %) 00 Medical nebulizer Branch solution albuterol 2023-0 Yes 2.5mg Inhale 3 Uni vers 2.5 mg /3 5-01 mL as ity of mL (0.083 00:00: needed. [place] %) 00 Medical nebulizer Branch solution albuterol 2023-0 Yes 2.5mg Inhale 3 Uni vers 2.5 mg /3 5-01 mL as ity of mL (0.083 00:00: needed. [place] %) 00 Medical nebulizer Branch solution albuterol 2023-0 Yes 2.5mg Inhale 3 Uni vers 2.5 mg /3 5-01 mL as ity of mL (0.083 00:00: needed. [place] %) 00 Medical nebulizer Branch solution albuterol 2023-0 Yes 2.5mg Inhale 3 Uni vers 2.5 mg /3 5-01 mL as ity of mL (0.083 00:00: needed. [place] %) 00 Medical nebulizer Branch solution albuterol 2023-0 Yes 2.5mg Inhale 3 Uni vers 2.5 mg /3 5-01 mL as ity of mL (0.083 00:00: needed. [place] %) 00 Medical nebulizer Branch solution albuterol 2023-0 Yes 2.5mg Inhale 3 Uni vers 2.5 mg /3 5-01 mL as ity of mL (0.083 00:00: needed. [place] %) 00 Medical nebulizer Branch solution albuterol 2023-0 Yes 2.5mg Inhale 3 Uni vers 2.5 mg /3 5-01 mL as ity of mL (0.083 00:00: needed. [place] %) 00 Medical nebulizer Branch solution albuterol 2023-0 Yes 2.5mg Inhale 3 Uni vers 2.5 mg /3 5-01 mL as ity of mL (0.083 00:00: needed. [place] %) 00 Medical nebulizer Branch solution albuterol 2023-0 Yes 2.5mg Inhale 3 Uni vers 2.5 mg /3 5-01 mL as ity of mL (0.083 00:00: needed. [place] %) 00 Medical nebulizer Branch solution albuterol 2023-0 Yes 2.5mg Inhale 3 Uni vers 2.5 mg /3 5-01 mL as ity of mL (0.083 00:00: needed. [place] %) 00 Medical nebulizer Branch solution albuterol 2023-0 Yes 2.5mg Inhale 3 Uni vers 2.5 mg /3 5-01 mL as ity of mL (0.083 00:00: needed. [place] %) 00 Medical nebulizer Branch solution albuterol 2023-0 Yes 2.5mg Inhale 3 Uni vers 2.5 mg /3 5-01 mL as ity of mL (0.083 00:00: needed. [place] %) 00 Medical nebulizer Branch solution albuterol 2023-0 Yes 2.5mg Inhale 3 Uni vers 2.5 mg /3 5-01 mL as ity of mL (0.083 00:00: needed. [place] %) 00 Medical nebulizer Branch solution albuterol 2023-0 Yes 2.5mg Inhale 3 Uni vers 2.5 mg /3 5-01 mL as ity of mL (0.083 00:00: needed. [place] %) 00 Medical nebulizer Branch solution albuterol 2023-0 Yes 2.5mg Inhale 3 Uni vers 2.5 mg /3 5-01 mL as ity of mL (0.083 00:00: needed. [place] %) 00 Medical nebulizer Branch solution albuterol 2023-0 Yes 2.5mg Inhale 3 Uni vers 2.5 mg /3 5-01 mL as ity of mL (0.083 00:00: needed. [place] %) 00 Medical nebulizer Branch solution albuterol 2023-0 Yes 2.5mg Inhale 3 Uni vers 2.5 mg /3 5-01 mL as ity of mL (0.083 00:00: needed. [place] %) 00 Medical nebulizer Branch solution albuterol 2023-0 Yes 2.5mg Inhale 3 Uni vers 2.5 mg /3 5-01 mL as ity of mL (0.083 00:00: needed. [place] %) 00 Medical nebulizer Branch solution albuterol 2023-0 Yes 2.5mg Inhale 3 Uni vers 2.5 mg /3 5-01 mL as ity of mL (0.083 00:00: needed. [place] %) 00 Medical nebulizer Branch solution albuterol 2023-0 Yes 2.5mg Inhale 3 Uni vers 2.5 mg /3 5-01 mL as ity of mL (0.083 00:00: needed. [place] %) 00 Medical nebulizer Branch solution albuterol 2023-0 Yes 2.5mg Inhale 3 Uni vers 2.5 mg /3 5-01 mL as ity of mL (0.083 00:00: needed. [place] %) 00 Medical nebulizer Branch solution albuterol 2023-0 Yes 2.5mg Inhale 3 Uni vers 2.5 mg /3 5-01 mL as ity of mL (0.083 00:00: needed. [place] %) 00 Medical nebulizer Branch solution albuterol 2023-0 Yes 2.5mg Inhale 3 Uni vers 2.5 mg /3 5-01 mL as ity of mL (0.083 00:00: needed. [place] %) 00 Medical nebulizer Branch solution diclofenac 2023-0 Yes [id number] 75mg Take 1 [facility] 75 mg EC 4-21 9109 tablet by ity of tablet 00:00: mouth in [place] [address] the [facility] morning [place] and 1 tablet in the evening. Take with meals. diclofenac 2023-0 Yes [id number] 75mg Take 1 [facility] 75 mg EC 4-21 9109 tablet by ity of tablet 00:00: mouth in [address] morning [place] and 1 tablet in the evening. Take with meals. diclofenac 2023-0 Yes [id number] 75mg Take 1 [facility] 75 mg EC 4-21 9109 tablet by ity of tablet 00:00: mouth in [place] [address] the [facility] morning [place] and 1 tablet in the evening. Take with meals. diclofenac 2023-0 Yes [id number] 75mg Take 1 [facility] 75 mg EC 4-21 9109 tablet by ity of tablet 00:00: mouth in [place] [address] the [facility] morning [place] and 1 tablet in the evening. Take with meals. diclofenac 2023-0 Yes [id number] 75mg Take 1 [facility] 75 mg EC 4-21 9109 tablet by ity of tablet 00:00: mouth in [address] morning [place] and 1 tablet in the evening. Take with meals. diclofenac 2023-0 Yes [id number] 75mg Take 1 [facility] 75 mg EC 4-21 9109 tablet by ity of tablet 00:00: mouth in [place] [address] the [facility] morning [place] and 1 tablet in the evening. Take with meals. diclofenac 2023-0 Yes [id number] 75mg Take 1 [facility] 75 mg EC 4-21 9109 tablet by ity of tablet 00:00: mouth in [address] morning [place] and 1 tablet in the evening. Take with meals. diclofenac 2023-0 Yes [id number] 75mg Take 1 [facility] 75 mg EC 4-21 9109 tablet by ity of tablet 00:00: mouth in [address] morning [place] and 1 tablet in the evening. Take with meals. diclofenac 2023-0 Yes [id number] 75mg Take 1 [facility] 75 mg EC 4-21 9109 tablet by ity of tablet 00:00: mouth in [address] morning [place] and 1 tablet in the evening. Take with meals. diclofenac 2023-0 Yes [id number] 75mg Take 1 [facility] 75 mg EC 4-21 9109 tablet by ity of tablet 00:00: mouth in [address] and 1 tablet in the evening. Take with meals. diclofenac 2023-0 Yes [id number] 75mg Take 1 [facility] 75 mg EC 4-21 9109 tablet by ity of tablet 00:00: mouth in [address] and 1 tablet in the evening. Take with meals. diclofenac 2023-0 Yes [id number] 75mg Take 1 [facility] 75 mg EC 4-21 9109 tablet by ity of tablet 00:00: mouth in [address] and 1 tablet in the evening. Take with meals. diclofenac 2023-0 Yes [id number] 75mg Take 1 [facility] 75 mg EC 4-21 9109 tablet by ity of tablet 00:00: mouth in [address] morning [place] and 1 tablet in the evening. Take with meals. diclofenac 2023-0 Yes [id number] 75mg Take 1 [facility] 75 mg EC 4-21 9109 tablet by ity of tablet 00:00: mouth in [address] morning [place] and 1 tablet in the evening. Take with meals. diclofenac 2023-0 Yes [id number] 75mg Take 1 [facility] 75 mg EC 4-21 9109 tablet by ity of tablet 00:00: mouth in [address] morning [place] and 1 tablet in the evening. Take with meals. diclofenac 2023-0 Yes [id number] 75mg Take 1 [facility] 75 mg EC 4-21 9109 tablet by ity of tablet 00:00: mouth in [address] morning [place] and 1 tablet in the evening. Take with meals. diclofenac 2023-0 Yes [id number] 75mg Take 1 [facility] 75 mg EC 4-21 9109 tablet by ity of tablet 00:00: mouth in [address] morning [place] and 1 tablet in the evening. Take with meals. diclofenac 2023-0 Yes [id number] 75mg Take 1 [facility] 75 mg EC 4-21 9109 tablet by ity of tablet 00:00: mouth in [address] and 1 tablet in the evening. Take with meals. diclofenac 2023-0 Yes [id number] 75mg Take 1 [facility] 75 mg EC 4-21 9109 tablet by ity of tablet 00:00: mouth in [address] and 1 tablet in the evening. Take with meals. diclofenac 2023-0 Yes [id number] 75mg Take 1 [facility] 75 mg EC 4-21 9109 tablet by ity of tablet 00:00: mouth in [address] and 1 tablet in the evening. Take with meals. diclofenac 2023-0 Yes [id number] 75mg Take 1 [facility] 75 mg EC 4-21 9109 tablet by ity of tablet 00:00: mouth in [address] and 1 tablet in the evening. Take with meals. diclofenac 2023-0 Yes [id number] 75mg Take 1 [facility] 75 mg EC 4-21 9109 tablet by ity of tablet 00:00: mouth in [address] and 1 tablet in the evening. Take with meals. diclofenac 2023-0 Yes [id number] 75mg Take 1 [facility] 75 mg EC 4-21 9109 tablet by ity of tablet 00:00: mouth in [address] and 1 tablet in the evening. Take with meals. diclofenac 2023-0 Yes [id number] 75mg Take 1 [facility] 75 mg EC 4-21 9109 tablet by ity of tablet 00:00: mouth in [address] and 1 tablet in the evening. Take with meals. diclofenac 2023-0 Yes [id number] 75mg Take 1 [facility] 75 mg EC 4-21 9109 tablet by ity of tablet 00:00: mouth in [address] morning [place] and 1 tablet in the evening. Take with meals. diclofenac 2023-0 Yes [id number] 75mg Take 1 Univers 75 mg EC 4-21 9109 tablet by ity of tablet 00:00: mouth in [place] [address] the [facility] morning [place] and 1 tablet in the evening. Take with meals. diclofenac 2023-0 Yes [id number] 75mg Take 1 Univers 75 mg EC 4-21 9109 tablet by ity of tablet 00:00: mouth in [address] morning [place] and 1 tablet in the evening. Take with meals. diclofenac 2023-0 Yes [id number] 75mg Take 1 [facility] 75 mg EC 4-21 9109 tablet by ity of tablet 00:00: mouth in [address] morning [place] and 1 tablet in the evening. Take with meals. diclofenac 2023-0 Yes [id number] 75mg Take 1 [facility] 75 mg EC 4-21 9109 tablet by ity of tablet 00:00: mouth in [address] morning [place] and 1 tablet in the evening. Take with meals. diclofenac 2023-0 Yes [id number] 75mg Take 1 [facility] 75 mg EC 4-21 9109 tablet by ity of tablet 00:00: mouth in [address] and 1 tablet in the evening. Take with meals. diclofenac 2023-0 Yes [id number] 75mg Take 1 [facility] 75 mg EC 4-21 9109 tablet by ity of tablet 00:00: mouth in [address] morning [place] and 1 tablet in the evening. Take with meals. diclofenac 2023-0 Yes [id number] 75mg Take 1 [facility] 75 mg EC 4-21 9109 tablet by ity of tablet 00:00: mouth in [address] and 1 tablet in the evening. Take with meals. diclofenac 2023-0 Yes [id number] 75mg Take 1 [facility] 75 mg EC 4-21 9109 tablet by ity of tablet 00:00: mouth in [address] and 1 tablet in the evening. Take with meals. diclofenac 2023-0 Yes [id number] 75mg Take 1 [facility] 75 mg EC 4-21 9109 tablet by ity of tablet 00:00: mouth in [address] and 1 tablet in the evening. Take with meals. diclofenac 2023-0 Yes [id number] 75mg Take 1 [facility] 75 mg EC 4-21 9109 tablet by ity of tablet 00:00: mouth in [address] morning [place] and 1 tablet in the evening. Take with meals. diclofenac 2023-0 Yes [id number] 75mg Take 1 [facility] 75 mg EC 4-21 9109 tablet by ity of tablet 00:00: mouth in [address] morning [place] and 1 tablet in the evening. Take with meals. diclofenac 2023-0 Yes [id number] 75mg Take 1 [facility] 75 mg EC 4-21 9109 tablet by ity of tablet 00:00: mouth in [address] morning [place] and 1 tablet in the evening. Take with meals. diclofenac 2023-0 Yes [id number] 75mg Take 1 [facility] 75 mg EC 4-21 9109 tablet by ity of tablet 00:00: mouth in [address] and 1 tablet in the evening. Take with meals. diclofenac 2023-0 Yes [id number] 75mg Take 1 [facility] 75 mg EC 4-21 9109 tablet by ity of tablet 00:00: mouth in [address] and 1 tablet in the evening. Take with meals. diclofenac 2023-0 Yes [id number] 75mg Take 1 [facility] 75 mg EC 4-21 9109 tablet by ity of tablet 00:00: mouth in [address] and 1 tablet in the evening. Take with meals. diclofenac 2023-0 Yes [id number] 75mg Take 1 [facility] 75 mg EC 4-21 9109 tablet by ity of tablet 00:00: mouth in [address] and 1 tablet in the evening. Take with meals. diclofenac 2023-0 Yes [id number] 75mg Take 1 [facility] 75 mg EC 4-21 9109 tablet by ity of tablet 00:00: mouth in [address] and 1 tablet in the evening. Take with meals. diclofenac 2023-0 Yes [id number] 75mg Take 1 [facility] 75 mg EC 4-21 9109 tablet by ity of tablet 00:00: mouth in [address] and 1 tablet in the evening. Take with meals. diclofenac 2023-0 Yes [id number] 75mg Take 1 [facility] 75 mg EC 4-21 9109 tablet by ity of tablet 00:00: mouth in [address] morning [place] and 1 tablet in the evening. Take with meals. diclofenac 2023-0 Yes [id number] 75mg Take 1 [facility] 75 mg EC 4-21 9109 tablet by ity of tablet 00:00: mouth in [address] and 1 tablet in the evening. Take with meals. diclofenac 2023-0 Yes [id number] 75mg Take 1 [facility] 75 mg EC 4-21 9109 tablet by ity of tablet 00:00: mouth in [address] and 1 tablet in the evening. Take with meals. diclofenac 2023-0 Yes [id number] 75mg Take 1 [facility] 75 mg EC 4-21 9109 tablet by ity of tablet 00:00: mouth in [address] and 1 tablet in the evening. Take with meals. diclofenac 2023-0 Yes [id number] 75mg Take 1 [facility] 75 mg EC 4-21 9109 tablet by ity of tablet 00:00: mouth in [address] and 1 tablet in the evening. Take with meals. diclofenac 2023-0 Yes [id number] 75mg Take 1 [facility] 75 mg EC 4-21 9109 tablet by ity of tablet 00:00: mouth in [address] and 1 tablet in the evening. Take with meals. diclofenac 2023-0 Yes [id number] 75mg Take 1 [facility] 75 mg EC 4-21 9109 tablet by ity of tablet 00:00: mouth in [address] and 1 tablet in the evening. Take with meals. diclofenac 2023-0 Yes [id number] 75mg Take 1 [facility] 75 mg EC 4-21 9109 tablet by ity of tablet 00:00: mouth in [address] and 1 tablet in the evening. Take with meals. diclofenac 2023-0 Yes [id number] 75mg Take 1 [facility] 75 mg EC 4-21 9109 tablet by ity of tablet 00:00: mouth in [address] and 1 tablet in the evening. Take with meals. diclofenac 2023-0 Yes [id number] 75mg Take 1 [facility] 75 mg EC 4-21 9109 tablet by ity of tablet 00:00: mouth in [address] and 1 tablet in the evening. Take with meals. diclofenac 2023-0 Yes [id number] 75mg Take 1 [facility] 75 mg EC 4-21 9109 tablet by ity of tablet 00:00: mouth in [place] [address] the [facility] morning [place] and 1 tablet in the evening. Take with meals. diclofenac 2023-0 Yes [id number] 75mg Take 1 [facility] 75 mg EC 4-21 9109 tablet by ity of tablet 00:00: mouth in [place] [address] the [facility] morning [place] and 1 tablet in the evening. Take with meals. diclofenac 2023-0 Yes [id number] 75mg Take 1 [facility] 75 mg EC 4-21 9109 tablet by ity of tablet 00:00: mouth in [place] [address] the [facility] morning [place] and 1 tablet in the evening. Take with meals. diclofenac 2023-0 Yes [id number] 75mg Take 1 [facility] 75 mg EC 4-21 9109 tablet by ity of tablet 00:00: mouth in [address] morning [place] and 1 tablet in the evening. Take with meals. budesonide/ 2022-0 Yes 2{puff} Q.5D Inhale 2 Methodi glycopyr/fo 4-[address] rmoterol 12:45: (two) Hospita (BREZTRI 03 times a l AEROSPHERE day. INHL) albuterol 2022-0 Yes 1.25mg Q.5D Take 3 mL M ethodi (ACCUNEB) 4-14 (1.[address] 1.25 mg/3 12:45: total) by Hos kian mL 03 nebulizati l nebulizer on 2 (two) solution times a day. budesonide/ 2022-0 Yes 2{puff} Q.5D Inhale 2 Methodi glycopyr/fo 4-[address] rmoterol 12:45: (two) Hospita (BREZTRI 03 times a l AEROSPHERE day. INHL) albuterol 2022-0 Yes 1.25mg Q.5D Take 3 mL M ethodi (ACCUNEB) 4-14 (1.[address] 1.25 mg/3 12:45: total) by Hos kian mL 03 nebulizati l nebulizer on 2 (two) solution times a day. fexofenadin 3-0 2023- No 60mg QD Take 1 Met hodi e (SWEETIE) 4-14 05-15 tablet (60 s t 60 MG 00:00: 04:59 mg total) Hospit a tablet 00 :00 by mouth l daily for 30 days. fexofenadin 2022-0 2022- No 60mg QD Take 1 Met hodi e (SWEETIE) 14 05-15 tablet (60 s t 60 MG 00:00: 04:59 mg total) Hospit a tablet 00 :00 by mouth l daily for 30 days. predniSONE 2022-0 2022- No 20mg QD Take 1 Meth ron (DELTASONE) 14 04-25 tablet (20 s t 20 mg 00:00: 04:59 mg total) Hospit a tablet 00 :00 by mouth l daily for 10 days. predniSONE 2022-0 2022- No 20mg QD Take 1 Meth ron (DELTASONE) 14 04-25 tablet (20 s t 20 mg 00:00: 04:59 mg total) Hospit a tablet 00 :00 by mouth l daily for 10 days. fluoxetine 2022-0 Yes 50mg QD Take 50 mg M ethodi HCl 4-[address] (FLUOXETINE 13:08: daily. 40 H ospita ORAL) 37 mg+ 10 mg l PO daily levothyroxi 2022-0 Yes 88ug QD Take 1 Meth ron ne 4-13 tablet (88 st (SYNTHROID) 13:08: mcg total) Hospita 88 mcg 37 by mouth l tablet daily. montelukast 2022-0 Yes 10mg QD Take 1 Meth ron (SINGULAIR) 4-13 tablet (10 st 10 mg 13:08: mg total) Hospita tablet 37 by mouth l daily. folic acid 0 Yes 1mg QD Take 1 mg Me thodi (FOLVITE) 1 4-[address] MG tablet 13:08: daily. Hospit a 37 l fluoxetine 2022-0 Yes 50mg QD Take 50 mg M ethodi HCl 4-[address] (FLUOXETINE 13:08: daily. 40 H ospita ORAL) 37 mg+ 10 mg l PO daily levothyroxi 2022-0 Yes 88ug QD Take 1 Meth ron ne 4-13 tablet (88 st (SYNTHROID) 13:08: mcg total) Hospita 88 mcg 37 by mouth l tablet daily. montelukast 2022-0 Yes 10mg QD Take 1 Meth ron (SINGULAIR) 13 tablet (10 st 10 mg 13:08: mg total) Hospita tablet 37 by mouth l daily. folic acid Yes 1mg QD Take 1 mg [facility] (FOLVITE) 1 -[address] MG tablet 13:08: daily. Hospit a 37 l benzonatate 2022- No 200mg Q6H Take 1 Me [facility]odi (TESSALON) 10-27-[address] 200 MG 00:00: 04:59 (200 mg Hospita capsule 00 :00 total) by l mouth every 6 (six) hours as needed for cough for up to 30 days. benzonatate 2022- No 200mg Q6H Take 1 Me [facility] (TESSALON) 10-[address] 200 MG 00:00: 04:59 (200 mg Hospita capsule 00 :00 total) by l mouth every 6 (six) hours as needed for cough for up to 30 days. amoxicillin 2022- No 500mg Q.5D Take 1 Me [facility] -pot 10-[address] clavulanate 00:00: 04:59 (500 mg Ho spita (Augmentin) 00 :00 total) by l 500-125 mg mouth 2 per tablet (two) times a day for 7 days. amoxicillin 0 2022- No 500mg Q.5D Take 1 Me thodi -pot 10-[address] clavulanate 00:00: 04:59 (500 mg Ho spita (Augmentin) 00 :00 total) by l 500-125 mg mouth 2 per tablet (two) times a day for 7 days. [facility] Yes 1{puff} Inhale 1 Uni vers AEROSPHERE 3-28 Puff in ity of 160-9-4.8 00:00: the [place] mcg/actuati 00 morning. [facility] on [facility] Branch [facility] Yes 1{puff} Inhale 1 Uni vers AEROSPHERE 3-28 Puff in ity of 160-9-4.8 00:00: the [place] mcg/actuati 00 morning. [facility] on [facility] Branch BREZTRI Yes 1{puff} Inhale 1 Uni vers AEROSPHERE 3-28 Puff in ity of 160-9-4.8 00:00: the [place] mcg/actuati 00 morning. [facility]i demar on [facility] Yes 1{puff} Inhale 1 Uni vers AEROSPHERE 3-28 Puff in ity of 160-9-4.8 00:00: the [place] mcg/actuati morning. Medi demar on [facility] Yes 1{puff} Inhale 1 Uni vers AEROSPHERE 3-28 Puff in ity of 160-9-4.8 00:00: the [place] mcg/actuati morning. Medi demar on [facility] Yes 1{puff} Inhale 1 Uni vers AEROSPHERE 3-28 Puff in ity of 160-9-4.8 00:00: the [place] mcg/actuati morning. Medi demar on [facility] Yes 1{puff} Inhale 1 Uni vers AEROSPHERE 3-28 Puff in ity of 160-9-4.8 00:00: the [place] mcg/actuati morning. Medi demar on [facility] Yes 1{puff} Inhale 1 Uni vers AEROSPHERE 3-28 Puff in ity of 160-9-4.8 00:00: the [place] mcg/actuati morning. Medi demar on [facility] Yes 1{puff} Inhale 1 Uni vers AEROSPHERE 3-28 Puff in ity of 160-9-4.8 00:00: the [place] mcg/actuati morning. Medi demar on [facility] Yes 1{puff} Inhale 1 Uni vers AEROSPHERE 3-28 Puff in ity of 160-9-4.8 00:00: the [place] mcg/actuati morning. Medi demar on [facility] Yes 1{puff} Inhale 1 Uni vers AEROSPHERE 3-28 Puff in ity of 160-9-4.8 00:00: the [place] mcg/actuati morning. Medi demar on [facility] Yes 1{puff} Inhale 1 Uni vers AEROSPHERE 3-28 Puff in ity of 160-9-4.8 00:00: the [place] mcg/actuati 00 morning. Medi demar on [facility] Yes 1{puff} Inhale 1 Uni vers AEROSPHERE 3-28 Puff in ity of 160-9-4.8 00:00: the [place] mcg/actuati 00 morning. Medi demar on [facility] Yes 1{puff} Inhale 1 Uni vers AEROSPHERE 3-28 Puff in ity of 160-9-4.8 00:00: the [place] mcg/actuati 00 morning. Medi demar on [facility] Yes 1{puff} Inhale 1 Uni vers AEROSPHERE 3-28 Puff in ity of 160-9-4.8 00:00: the [place] mcg/actuati morning. Medi demar on [facility] Yes 1{puff} Inhale 1 Uni vers AEROSPHERE 3-28 Puff in ity of 160-9-4.8 00:00: the [place] mcg/actuati morning. Medi demar on [facility] Yes 1{puff} Inhale 1 Uni vers AEROSPHERE 3-28 Puff in ity of 160-9-4.8 00:00: the [place] mcg/actuati morning. Medi demar on [facility] Yes 1{puff} Inhale 1 Uni vers AEROSPHERE 3-28 Puff in ity of 160-9-4.8 00:00: the [place] mcg/actuati morning. Medi demar on [facility] Yes 1{puff} Inhale 1 Uni vers AEROSPHERE 3-28 Puff in ity of 160-9-4.8 00:00: the [place] mcg/actuati morning. Medi demar on [facility] Yes 1{puff} Inhale 1 Uni vers AEROSPHERE 3-28 Puff in ity of 160-9-4.8 00:00: the [place] mcg/actuati morning. Medi demar on [facility] Yes 1{puff} Inhale 1 Uni vers AEROSPHERE 3-28 Puff in ity of 160-9-4.8 00:00: the [place] mcg/actuati 00 morning. Medi demar on [facility] Yes 1{puff} Inhale 1 Uni vers AEROSPHERE 3-28 Puff in ity of 160-9-4.8 00:00: the [place] mcg/actuati morning. Medi demar on [facility] Yes 1{puff} Inhale 1 Uni vers AEROSPHERE 3-28 Puff in ity of 160-9-4.8 00:00: the [place] mcg/actuati morning. Medi demar on [facility] Yes 1{puff} Inhale 1 Uni vers AEROSPHERE 3-28 Puff in ity of 160-9-4.8 00:00: the [place] mcg/actuati morning. Medi demar on [facility] Yes 1{puff} Inhale 1 Uni vers AEROSPHERE 3-28 Puff in ity of 160-9-4.8 00:00: the [place] mcg/actuati morning. Medi demar on [facility] Yes 1{puff} Inhale 1 Uni vers AEROSPHERE 3-28 Puff in ity of 160-9-4.8 00:00: the [place] mcg/actuati morning. Medi demar on [facility] Yes 1{puff} Inhale 1 Uni vers AEROSPHERE 3-28 Puff in ity of 160-9-4.8 00:00: the [place] mcg/actuati morning. Medi demar on [facility] Yes 1{puff} Inhale 1 Uni vers AEROSPHERE 3-28 Puff in ity of 160-9-4.8 00:00: the [place] mcg/actuati morning. Medi demar on [facility] Yes 1{puff} Inhale 1 Uni vers AEROSPHERE 3-28 Puff in ity of 160-9-4.8 00:00: the [place] mcg/actuati morning. Medi demar on [facility] Yes 1{puff} Inhale 1 Uni vers AEROSPHERE 3-28 Puff in ity of 160-9-4.8 00:00: the [place] mcg/actuati 00 morning. Medi demar on [facility] Yes 1{puff} Inhale 1 Uni vers AEROSPHERE 3-28 Puff in ity of 160-9-4.8 00:00: the [place] mcg/actuati morning. Medi demar on [facility] Yes 1{puff} Inhale 1 Uni vers AEROSPHERE 3-28 Puff in ity of 160-9-4.8 00:00: the [place] mcg/actuati morning. Medi demar on [facility] Yes 1{puff} Inhale 1 Uni vers AEROSPHERE 3-28 Puff in ity of 160-9-4.8 00:00: the [place] mcg/actuati morning. Medi demar on [facility] Yes 1{puff} Inhale 1 Uni vers AEROSPHERE 3-28 Puff in ity of 160-9-4.8 00:00: the [place] mcg/actuati morning. Medi demar on [facility] Yes 1{puff} Inhale 1 Uni vers AEROSPHERE 3-28 Puff in ity of 160-9-4.8 00:00: the [place] mcg/actuati morning. Medi demar on [facility] Yes 1{puff} Inhale 1 Uni vers AEROSPHERE 3-28 Puff in ity of 160-9-4.8 00:00: the [place] mcg/actuati morning. Medi demar on [facility] Yes 1{puff} Inhale 1 Uni vers AEROSPHERE 3-28 Puff in ity of 160-9-4.8 00:00: the [place] mcg/actuati morning. Medi demar on [facility] Yes 1{puff} Inhale 1 Uni vers AEROSPHERE 3-28 Puff in ity of 160-9-4.8 00:00: the [place] mcg/actuati morning. Medi demar on [facility] Yes 1{puff} Inhale 1 Uni vers AEROSPHERE 3-28 Puff in ity of 160-9-4.8 00:00: the [place] mcg/actuati 00 morning. Medi demar on [facility] Yes 1{puff} Inhale 1 Uni vers AEROSPHERE 3-28 Puff in ity of 160-9-4.8 00:00: the [place] mcg/actuati 00 morning. Medi demar on [facility] Yes 1{puff} Inhale 1 Uni vers AEROSPHERE 3-28 Puff in ity o f 160-9-4.8 00:00: the [place] mcg/actuati 00 morning. Medi demar on [facility] meloxicam 2021-07- No 15mg Q24H Take 1 Metho di (Mobic) 15 0-14 04-11 tablet (15 st mg tablet 00:00: 00:00 mg total) Ho spita 00 :00 by mouth l daily as needed (INFLAMMAT ION). meloxicam 2021-07- No 15mg Q24H Take 1 Metho di (Mobic) 15 0-14 04-11 tablet (15 st mg tablet 00:00: 00:00 mg total) Ho spita 00 :00 by mouth l daily as needed (INFLAMMAT ION). sodium 2021- No [id number] 30mg Uni vers hyaluronate 03-11 9109 ity of (viscosup) 14:45: 14:31 [place] (ORTHOVISC) 00 :00 Medical injection Branch 30 mg sodium 2021- No [id number] 30mg 30 mg, U nivers hyaluronate 03-11 9109 Intra-riley i ty of (viscosup) 14:45: 14:31 [place] [facility] (ORTHOVISC) 00 :00 ONCE, 1 Medic al injection dose, On Branch 30 mg 03/11/22 at 0945, Routine sodium 2021- No [id number] 30mg Uni vers hyaluronate 03-11 9109 ity of (viscosup) 14:45: 14:31 [place] (ORTHOVISC) 00 :00 Medical injection Branch 30 mg sodium 2021- No [id number] 30mg 30 mg, U nivers hyaluronate 03-11 9109 Intra-riley i ty of (viscosup) 14:45: 14:31 [place] [facility] (ORTHOVISC) 00 :00 ONCE, 1 Medic al injection dose, On Branch 30 mg 03/11/22 at 0945, Routine benzonatate 2021-0 Yes [id number] 100mg Take 1 Univers 100 mg 2-21 capsule by ity of capsule 00:00: mouth (three) Medical times Branch daily as needed for Cough. benzonatate 2021-0 Yes [id number] 100mg Take 1 Univers 100 mg 2-21 capsule by ity of capsule 00:00: mouth (three) Medical times Branch daily as needed for Cough. benzonatate 2021-0 Yes [id number] 100mg Take 1 Univers 100 mg 2-21 capsule by ity of capsule 00:00: mouth (three) Medical times Branch daily as needed for Cough. benzonatate 2021-0 Yes [id number] 100mg Take 1 Univers 100 mg 2-21 capsule by ity of capsule 00:00: mouth (three) Medical times Branch daily as needed for Cough. benzonatate 2021-0 Yes [id number] 100mg Take 1 Univers 100 mg 2-21 capsule by ity of capsule 00:00: mouth (three) Medical times Branch daily as needed for Cough. benzonatate 2021-0 Yes [id number] 100mg Take 1 Univers 100 mg 2-21 capsule by ity of capsule 00:00: mouth (three) Medical times Branch daily as needed for Cough. benzonatate 2021-0 Yes [id number] 100mg Take 1 Univers 100 mg 2-21 capsule by ity of capsule 00:00: mouth (three) Medical times Branch daily as needed for Cough. benzonatate 2021-0 Yes [id number] 100mg Take 1 Univers 100 mg 2-21 capsule by ity of capsule 00:00: mouth 3 (three) Medical times Branch daily as needed for Cough. benzonatate 2021-0 Yes [id number] 100mg Take 1 Univers 100 mg 2-21 capsule by ity of capsule 00:00: mouth (three) Medical times Branch daily as needed for Cough. benzonatate 2022-0 Yes [id number] 100mg Take 1 Univers 100 mg 2-21 capsule by ity of capsule 00:00: mouth (three) Medical times Branch daily as needed for Cough. benzonatate 2022-0 Yes [id number] 100mg Take 1 Univers 100 mg 2-21 capsule by ity of capsule 00:00: mouth (three) Medical times Branch daily as needed for Cough. benzonatate 2022-0 Yes [id number] 100mg Take 1 Univers 100 mg 2-21 capsule by ity of capsule 00:00: mouth (three) Medical times Branch daily as needed for Cough. benzonatate 2022-0 Yes [id number] 100mg Take 1 Univers 100 mg 2-21 capsule by ity of capsule 00:00: mouth (three) Medical times Branch daily as needed for Cough. benzonatate 2022-0 Yes [id number] 100mg Take 1 Univers 100 mg 2-21 capsule by ity of capsule 00:00: mouth (three) Medical times Branch daily as needed for Cough. benzonatate 2022-0 Yes [id number] 100mg Take 1 Univers 100 mg 2-21 capsule by ity of capsule 00:00: mouth () Medical times Branch daily as needed for Cough. benzonatate 2022-0 Yes [id number] 100mg Take 1 Univers 100 mg 2-21 capsule by ity of capsule 00:00: mouth (three) Medical times Branch daily as needed for Cough. benzonatate 2022-0 Yes [id number] 100mg Take 1 Univers 100 mg 2-21 capsule by ity of capsule 00:00: mouth (three) Medical times Branch daily as needed for Cough. benzonatate 2022-0 Yes [id number] 100mg Take 1 Univers 100 mg 2-21 capsule by ity of capsule 00:00: mouth (three) Medical times Branch daily as needed for Cough. benzonatate 2022-0 Yes [id number] 100mg Take 1 Univers 100 mg 2-21 capsule by ity of capsule 00:00: mouth (three) Medical times Branch daily as needed for Cough. benzonatate 2022-0 Yes [id number] 100mg Take 1 Univers 100 mg 2-21 capsule by ity of capsule 00:00: mouth 3 (three) Medical times Branch daily as needed for Cough. benzonatate 2022-0 Yes [id number] 100mg Take 1 Univers 100 mg 2-21 capsule by ity of capsule 00:00: mouth 3 (three) Medical times Branch daily as needed for Cough. benzonatate 2022-0 Yes [id number] 100mg Take 1 Univers 100 mg 2-21 capsule by ity of capsule 00:00: mouth (three) Medical times Branch daily as needed for Cough. benzonatate 2022-0 Yes [id number] 100mg Take 1 Univers 100 mg 2-21 capsule by ity of capsule 00:00: mouth (three) Medical times Branch daily as needed for Cough. benzonatate 2022-0 Yes [id number] 100mg Take 1 [facility] 100 mg 2-21 capsule by ity of capsule 00:00: mouth (three) Medical times Branch daily as needed for Cough. benzonatate 2022-0 Yes [id number] 100mg Take 1 [facility] 100 mg 2-21 capsule by ity of capsule 00:00: mouth (three) Medical times Branch daily as needed for Cough. benzonatate 2022-0 Yes [id number] 100mg Take 1 [facility] 100 mg 2-21 capsule by ity of capsule 00:00: mouth (three) Medical times Branch daily as needed for Cough. benzonatate 2022-0 Yes [id number] 100mg Take 1 Univers 100 mg 2-21 capsule by ity of capsule 00:00: mouth (three) Medical times Branch daily as needed for Cough. benzonatate 2022-0 Yes [id number] 100mg Take 1 Univers 100 mg 2-21 capsule by ity of capsule 00:00: mouth (three) Medical times Branch daily as needed for Cough. benzonatate 2022-0 Yes [id number] 100mg Take 1 Univers 100 mg 2-21 capsule by ity of capsule 00:00: mouth 3 (three) Medical times Branch daily as needed for Cough. benzonatate 2022-0 Yes [id number] 100mg Take 1 Univers 100 mg 2-21 capsule by ity of capsule 00:00: mouth (three) Medical times Branch daily as needed for Cough. benzonatate 2022-0 Yes [id number] 100mg Take 1 [facility] 100 mg 2-21 capsule by ity of capsule 00:00: mouth (three) Medical times Branch daily as needed for Cough. benzonatate 2022-0 Yes [id number] 100mg Take 1 Univers 100 mg 2-21 capsule by ity of capsule 00:00: mouth (three) Medical times Branch daily as needed for Cough. benzonatate 2022-0 Yes [id number] 100mg Take 1 Univers 100 mg 2-21 capsule by ity of capsule 00:00: mouth (three) Medical times Branch daily as needed for Cough. benzonatate 2022-0 Yes [id number] 100mg Take 1 Univers 100 mg 2-21 capsule by ity of capsule 00:00: mouth (three) Medical times Branch daily as needed for Cough. benzonatate 2022-0 Yes [id number] 100mg Take 1 Univers 100 mg 2-21 capsule by ity of capsule 00:00: mouth (three) Medical times Branch daily as needed for Cough. benzonatate 2022-0 Yes [id number] 100mg Take 1 Univers 100 mg 2-21 capsule by ity of capsule 00:00: mouth (three) Medical times Branch daily as needed for Cough. benzonatate 2022-0 Yes [id number] 100mg Take 1 Univers 100 mg 2-21 capsule by ity of capsule 00:00: mouth (three) Medical times Branch daily as needed for Cough. benzonatate 2022-0 Yes [id number] 100mg Take 1 Univers 100 mg 2-21 capsule by ity of capsule 00:00: mouth (three) Medical times Branch daily as needed for Cough. benzonatate 2022-0 Yes [id number] 100mg Take 1 Univers 100 mg 2-21 capsule by ity of capsule 00:00: mouth (three) Medical times Branch daily as needed for Cough. benzonatate 2022-0 Yes [id number] 100mg Take 1 Univers 100 mg 2-21 capsule by ity of capsule 00:00: mouth (three) Medical times Branch daily as needed for Cough. benzonatate 2022-0 Yes [id number] 100mg Take 1 Univers 100 mg 2-21 capsule by ity of capsule 00:00: mouth (three) Medical times Branch daily as needed for Cough. benzonatate 2022-0 Yes [id number] 100mg Take 1 Univers 100 mg 2-21 capsule by ity of capsule 00:00: mouth (three) Medical times Branch daily as needed for Cough. benzonatate 2022-0 Yes [id number] 100mg Take 1 Univers 100 mg 2-21 capsule by ity of capsule 00:00: mouth (three) Medical times Branch daily as needed for Cough. benzonatate 2022-0 Yes [id number] 100mg Take 1 Univers 100 mg 2-21 capsule by ity of capsule 00:00: mouth (three) Medical times Branch daily as needed for Cough. benzonatate 2022-0 Yes [id number] 100mg Take 1 Univers 100 mg 2-21 capsule by ity of capsule 00:00: mouth (three) Medical times Branch daily as needed for Cough. benzonatate 2022-0 Yes [id number] 100mg Take 1 Univers 100 mg 2-21 capsule by ity of capsule 00:00: mouth (three) Medical times Branch daily as needed for Cough. benzonatate 2022-0 Yes [id number] 100mg Take 1 Univers 100 mg 2-21 capsule by ity of capsule 00:00: mouth (three) Medical times Branch daily as needed for Cough. benzonatate 2022-0 Yes [id number] 100mg Take 1 Univers 100 mg 2-21 capsule by ity of capsule 00:00: mouth (three) Medical times Branch daily as needed for Cough. benzonatate 2022-0 Yes [id number] 100mg Take 1 Univers 100 mg 2-21 capsule by ity of capsule 00:00: mouth (three) Medical times Branch daily as needed for Cough. benzonatate 2022-0 Yes [id number] 100mg Take 1 Univers 100 mg 2-21 capsule by ity of capsule 00:00: mouth (three) Medical times Branch daily as needed for Cough. benzonatate 2022-0 Yes [id number] 100mg Take 1 Univers 100 mg 2-21 capsule by ity of capsule 00:00: mouth (three) Medical times Branch daily as needed for Cough. benzonatate 2022-0 Yes [id number] 100mg Take 1 Univers 100 mg 2-21 capsule by ity of capsule 00:00: mouth (three) Medical times Branch daily as needed for Cough. benzonatate 2022-0 Yes [id number] 100mg Take 1 Univers 100 mg 2-21 capsule by ity of capsule 00:00: mouth (three) Medical times Branch daily as needed for Cough. benzonatate 2022-0 Yes [id number] 100mg Take 1 Univers 100 mg 2-21 capsule by ity of capsule 00:00: mouth (three) Medical times Branch daily as needed for Cough. benzonatate 2022-0 Yes [id number] 100mg Take 1 Univers 100 mg 2-21 capsule by ity of capsule 00:00: mouth (three) Medical times Branch daily as needed for Cough. benzonatate 2022-0 Yes [id number] 100mg Take 1 Univers 100 mg 2-21 capsule by ity of capsule 00:00: mouth (three) Medical times Branch daily as needed for Cough. benzonatate 2022-0 Yes [id number] 100mg Take 1 Univers 100 mg 2-21 capsule by ity of capsule 00:00: mouth (three) Medical times Branch daily as needed for Cough. benzonatate 2022-0 Yes [id number] 100mg Take 1 Univers 100 mg 2-21 capsule by ity of capsule 00:00: mouth (three) Medical times Branch daily as needed for Cough. benzonatate 2022-0 Yes [id number] 100mg Take 1 Univers 100 mg 2-21 capsule by ity of capsule 00:00: mouth (three) Medical times Branch daily as needed for Cough. benzonatate 2022-0 Yes [id number] 100mg Take 1 Univers 100 mg 2-21 capsule by ity of capsule 00:00: mouth 3 (three) Medical times Branch daily as needed for Cough. benzonatate 2022-0 Yes [id number] 100mg Take 1 Univers 100 mg 2-21 capsule by ity of capsule 00:00: mouth (three) Medical times Branch daily as needed for Cough. benzonatate 2-0 Yes [id number] 100mg Take 1 Univers 100 mg 2-21 capsule by ity of capsule 00:00: mouth (three) Medical times Branch daily as needed for Cough. benzonatate 2022-0 Yes [id number] 100mg Take 1 Univers 100 mg 2-21 capsule by ity of capsule 00:00: mouth (three) Medical times Branch daily as needed for Cough. benzonatate 2022-0 Yes [id number] 100mg Take 1 Univers 100 mg 2-21 capsule by ity of capsule 00:00: mouth (three) Medical times Branch daily as needed for Cough. benztropine 2020-07 Yes [id number] 1mg Take 1 Univers 1 mg tablet 0-25 tablet by ity of 00:00: mouth (two) Medical times Branch daily as needed (tremor). benztropine 2020-07 Yes [id number] 1mg Take 1 Univers 1 mg tablet 0-25 tablet by ity of 00:00: mouth (two) Medical times Branch daily as needed (tremor). benztropine 2020-07 Yes [id number] 1mg Take 1 Univers 1 mg tablet 0-25 tablet by ity of 00:00: mouth (two) Medical times Branch daily as needed (tremor). benztropine 2020-07 Yes [id number] 1mg Take 1 Univers 1 mg tablet 0-25 tablet by ity of 00:00: mouth (two) Medical times Branch daily as needed (tremor). benztropine 2020-07 Yes [id number] 1mg Take 1 Univers 1 mg tablet 0-25 tablet by ity of 00:00: mouth (two) Medical times Branch daily as needed (tremor). benztropine 2020-07 Yes [id number] 1mg Take 1 Univers 1 mg tablet 0-25 tablet by ity of 00:00: mouth (two) Medical times Branch daily as needed (tremor). benztropine 2020-07 Yes [id number] 1mg Take 1 Univers 1 mg tablet 0-25 tablet by ity of 00:00: mouth (two) Medical times Branch daily as needed (tremor). benztropine 2020-07 Yes [id number] 1mg Take 1 Univers 1 mg tablet 0-25 tablet by ity of 00:00: mouth (two) Medical times Branch daily as needed (tremor). benztropine 2020-07 Yes [id number] 1mg Take 1 Univers 1 mg tablet 0-25 tablet by ity of 00:00: mouth (two) Medical times Branch daily as needed (tremor). benztropine 2020-07 Yes [id number] 1mg Take 1 Univers 1 mg tablet 0-25 tablet by ity of 00:00: mouth (two) Medical times Branch daily as needed (tremor). benztropine 2020-07 Yes [id number] 1mg Take 1 Univers 1 mg tablet 0-25 tablet by ity of 00:00: mouth (two) Medical times Branch daily as needed (tremor). benztropine 2020-07 Yes [id number] 1mg Take 1 Univers 1 mg tablet 0-25 tablet by ity of 00:00: mouth (two) Medical times Branch daily as needed (tremor). benztropine 2020-07 Yes [id number] 1mg Take 1 Univers 1 mg tablet 0-25 tablet by ity of 00:00: mouth (two) Medical times Branch daily as needed (tremor). benztropine 2020-07 Yes [id number] 1mg Take 1 Univers 1 mg tablet 0-25 tablet by ity of 00:00: mouth (two) Medical times Branch daily as needed (tremor). benztropine 2020-07 Yes [id number] 1mg Take 1 Univers 1 mg tablet 0-25 tablet by ity of 00:00: mouth (two) Medical times Branch daily as needed (tremor). benztropine 2020-07 Yes [id number] 1mg Take 1 Univers 1 mg tablet 0-25 tablet by ity of 00:00: mouth (two) Medical times Branch daily as needed (tremor). benztropine 2020-07 Yes [id number] 1mg Take 1 Univers 1 mg tablet 0-25 tablet by ity of 00:00: mouth (two) Medical times Branch daily as needed (tremor). benztropine 2020-07 Yes [id number] 1mg Take 1 Univers 1 mg tablet 0-25 tablet by ity of 00:00: mouth (two) Medical times Branch daily as needed (tremor). benztropine 2020-07 Yes [id number] 1mg Take 1 Univers 1 mg tablet 0-25 tablet by ity of 00:00: mouth (two) Medical times Branch daily as needed (tremor). benztropine 2020-07 Yes [id number] 1mg Take 1 [facility] 1 mg tablet 0-25 tablet by [facility] of 00:00: mouth (two) Medical times Branch daily as needed (tremor). benztropine 2020-07 Yes [id number] 1mg Take 1 [facility] 1 mg tablet 0-25 tablet by [facility] of 00:00: mouth (two) Medical times Branch daily as needed (tremor). benztropine 2020-07 Yes [id number] 1mg Take 1 [facility] 1 mg tablet 0-25 tablet by [facility] of 00:00: mouth (two) Medical times Branch daily as needed (tremor). benztropine 2020-07 Yes [id number] 1mg Take 1 [facility] 1 mg tablet 0-25 tablet by [facility] of 00:00: mouth (two) Medical times Branch daily as needed (tremor). benztropine 2020-07 Yes [id number] 1mg Take 1 [facility] 1 mg tablet 0-25 tablet by [facility] of 00:00: mouth (two) Medical times Branch daily as needed (tremor). benztropine 2020-07 Yes [id number] 1mg Take 1 [facility] 1 mg tablet 0-25 tablet by [facility] of 00:00: mouth (two) Medical times Branch daily as needed (tremor). benztropine 2020-07 Yes [id number] 1mg Take 1 [facility] 1 mg tablet 0-25 tablet by [facility] of 00:00: mouth (two) Medical times Branch daily as needed (tremor). benztropine 2020-07 Yes [id number] 1mg Take 1 [facility] 1 mg tablet 0-25 tablet by [facility] of 00:00: mouth (two) Medical times Branch daily as needed (tremor). benztropine 2020-07 Yes [id number] 1mg Take 1 [facility] 1 mg tablet 0-25 tablet by [facility] of 00:00: mouth (two) Medical times Branch daily as needed (tremor). benztropine 2020-07 Yes [id number] 1mg Take 1 [facility] 1 mg tablet 0-25 tablet by [facility] of 00:00: mouth (two) Medical times Branch daily as needed (tremor). benztropine 2020-07 Yes [id number] 1mg Take 1 [facility] 1 mg tablet 0-25 tablet by [facility] of 00:00: mouth (two) Medical times Branch daily as needed (tremor). benztropine 2020-07 Yes [id number] 1mg Take 1 [facility] 1 mg tablet 0-25 tablet by [facility] of 00:00: mouth (two) Medical times Branch daily as needed (tremor). benztropine 2020-07 Yes [id number] 1mg Take 1 [facility] 1 mg tablet 0-25 tablet by [facility] of 00:00: mouth (two) Medical times Branch daily as needed (tremor). benztropine 2020-07 Yes [id number] 1mg Take 1 [facility] 1 mg tablet 0-25 tablet by [facility] of 00:00: mouth (two) Medical times Branch daily as needed (tremor). benztropine 2020-07 Yes [id number] 1mg Take 1 [facility] 1 mg tablet 0-25 tablet by [facility] of 00:00: mouth (two) Medical times Branch daily as needed (tremor). benztropine 2020-07 Yes [id number] 1mg Take 1 [facility] 1 mg tablet 0-25 tablet by [facility] of 00:00: mouth (two) Medical times Branch daily as needed (tremor). benztropine 2020-07 Yes [id number] 1mg Take 1 [facility] 1 mg tablet 0-25 tablet by [facility] of 00:00: mouth (two) Medical times Branch daily as needed (tremor). benztropine 2020-07 Yes [id number] 1mg Take 1 [facility] 1 mg tablet 0-25 tablet by [facility] of 00:00: mouth (two) Medical times Branch daily as needed (tremor). benztropine 2020-07 Yes [id number] 1mg Take 1 [facility] 1 mg tablet 0-25 tablet by [facility] of 00:00: mouth 2 [place] 00 (two) Medical times Branch daily as needed (tremor). benztropine 2020-07 Yes [id number] 1mg Take 1 [facility] 1 mg tablet 0-25 tablet by [facility] of 00:00: mouth (two) Medical times Branch daily as needed (tremor). benztropine 2020-07 Yes [id number] 1mg Take 1 [facility] 1 mg tablet 0-25 tablet by [facility] of 00:00: mouth (two) Medical times Branch daily as needed (tremor). benztropine 2020-07 Yes [id number] 1mg Take 1 [facility] 1 mg tablet 0-25 tablet by [facility] of 00:00: mouth (two) Medical times Branch daily as needed (tremor). benztropine 2020-07 Yes [id number] 1mg Take 1 [facility] 1 mg tablet 0-25 tablet by [facility] of 00:00: mouth (two) Medical times Branch daily as needed (tremor). benztropine 2020-07 Yes [id number] 1mg Take 1 [facility] 1 mg tablet 0-25 tablet by [facility] of 00:00: mouth (two) Medical times Branch daily as needed (tremor). benztropine 2020-07 Yes [id number] 1mg Take 1 [facility] 1 mg tablet 0-25 tablet by [facility] of 00:00: mouth (two) Medical times Branch daily as needed (tremor). benztropine 2020-07 Yes [id number] 1mg Take 1 [facility] 1 mg tablet 0-25 tablet by [facility] of 00:00: mouth (two) Medical times Branch daily as needed (tremor). benztropine 2020-07 Yes [id number] 1mg Take 1 [facility] 1 mg tablet 0-25 tablet by [facility] of 00:00: mouth (two) Medical times Branch daily as needed (tremor). benztropine 2020-07 Yes [id number] 1mg Take 1 [facility] 1 mg tablet 0-25 tablet by [facility] of 00:00: mouth (two) Medical times Branch daily as needed (tremor). benztropine 2020-07 Yes [id number] 1mg Take 1 [facility] 1 mg tablet 0-25 tablet by [facility] of 00:00: mouth (two) Medical times Branch daily as needed (tremor). benztropine 2020-07 Yes [id number] 1mg Take 1 [facility] 1 mg tablet 0-25 tablet by [facility] of 00:00: mouth (two) Medical times Branch daily as needed (tremor). benztropine 2020-07 Yes [id number] 1mg Take 1 [facility] 1 mg tablet 0-25 tablet by [facility] of 00:00: mouth (two) Medical times Branch daily as needed (tremor). benztropine 2020-07 Yes [id number] 1mg Take 1 [facility] 1 mg tablet 0-25 tablet by [facility] of 00:00: mouth (two) Medical times Branch daily as needed (tremor). benztropine 2020-07 Yes [id number] 1mg Take 1 [facility] 1 mg tablet 0-25 tablet by [facility] of 00:00: mouth (two) Medical times Branch daily as needed (tremor). benztropine 2020-07 Yes [id number] 1mg Take 1 [facility] 1 mg tablet 0-25 tablet by [facility] of 00:00: mouth (two) Medical times Branch daily as needed (tremor). benztropine 2020-07 Yes [id number] 1mg Take 1 [facility] 1 mg tablet 0-25 tablet by [facility] of 00:00: mouth (two) Medical times Branch daily as needed (tremor). benztropine 2020-07 Yes [id number] 1mg Take 1 [facility] 1 mg tablet 0-25 tablet by [facility] of 00:00: mouth (two) Medical times Branch daily as needed (tremor). benztropine 2020-07 Yes [id number] 1mg Take 1 [facility] 1 mg tablet 0-25 tablet by [facility] of 00:00: mouth (two) Medical times Branch daily as needed (tremor). benztropine 2020-07 Yes [id number] 1mg Take 1 [facility] 1 mg tablet 0-25 tablet by [facility] of 00:00: mouth (two) Medical times Branch daily as needed (tremor). benztropine 2020-07 Yes [id number] 1mg Take 1 [facility] 1 mg tablet 0-25 tablet by [facility] of 00:00: mouth (two) Medical times Branch daily as needed (tremor). benztropine 2020-07 Yes [id number] 1mg Take 1 [facility] 1 mg tablet 0-25 tablet by [facility] of 00:00: mouth (two) Medical times Branch daily as needed (tremor). benztropine 2020-07 Yes [id number] 1mg Take 1 [facility] 1 mg tablet 0-25 tablet by [facility] of 00:00: mouth 2 (two) Medical times Branch daily as needed (tremor). benztropine 2020-07 Yes [id number] 1mg Take 1 [facility] 1 mg tablet 0-25 tablet by [facility] of 00:00: mouth (two) Medical times Branch daily as needed (tremor). benztropine 2020-07 Yes [id number] 1mg Take 1 [facility] 1 mg tablet 0-25 tablet by [facility] of 00:00: mouth (two) Medical times Branch daily as needed (tremor). benztropine 2020-07 Yes [id number] 1mg Take 1 [facility] 1 mg tablet 0-25 tablet by [facility] of 00:00: mouth (two) Medical times Branch daily as needed (tremor). benztropine 2020-07 Yes [id number] 1mg Take 1 [facility] 1 mg tablet 0-25 tablet by [facility] of 00:00: mouth (two) Medical times Branch daily as needed (tremor). meloxicam Yes [id number] 7.5mg Take 1 [facility] 7.5 mg 9-08 9109 tablet by [facility] of tablet 00:00: mouth [place] 00 daily. Medical Branch meloxicam Yes [id number] 7.5mg Take 1 [facility] 7.5 mg 9-08 9109 tablet by [facility] of tablet 00:00: mouth [place] 00 daily. Medical Branch meloxicam 0 Yes [id number] 7.5mg Take 1 [facility] 7.5 mg 9-08 9109 tablet by [facility] of tablet 00:00: mouth [place] 00 daily. Medical Branch meloxicam 0 Yes [id number] 7.5mg Take 1 [facility] 7.5 mg 9-08 9109 tablet by [facility] of tablet 00:00: mouth [place] 00 daily. [facility] Branch meloxicam 0 Yes [id number] 7.5mg Take 1 [facility] 7.5 mg 9-08 9109 tablet by ity of tablet 00:00: mouth [place] 00 daily. [facility] meloxicam 2020-0 Yes [id number] 7.5mg Take 1 [facility] 7.5 mg 9-08 9109 tablet by it[facility] of tablet 00:00: mouth [place] 00 daily. [facility] meloxicam 2020-0 Yes [id number] 7.5mg Take 1 [facility] 7.5 mg 9-08 9109 tablet by [facility] of tablet 00:00: mouth [place] 00 daily. [facility] meloxicam 2020-0 Yes [id number] 7.5mg Take 1 [facility] 7.5 mg 9-08 9109 tablet by [facility] of tablet 00:00: mouth [place] 00 daily. [facility] meloxicam 2020-0 Yes [id number] 7.5mg Take 1 [facility] 7.5 mg 9-08 9109 tablet by [facility] of tablet 00:00: mouth [place] 00 daily. [facility] meloxicam 2020-0 Yes [id number] 7.5mg Take 1 [facility] 7.5 mg 9-08 9109 tablet by [facility] of tablet 00:00: mouth [place] 00 daily. [facility] meloxicam 0 Yes [id number] 7.5mg Take 1 [facility] 7.5 mg 9-08 9109 tablet by [facility] of tablet 00:00: mouth [place] 00 daily. [facility] meloxicam 0 Yes [id number] 7.5mg Take 1 [facility] 7.5 mg 9-08 9109 tablet by [facility] of tablet 00:00: mouth [place] 00 daily. [facility] meloxicam 2020-0 Yes [id number] 7.5mg Take 1 [facility] 7.5 mg 9-08 9109 tablet by [facility] of tablet 00:00: mouth [place] 00 daily. [facility] meloxicam 2020-0 Yes [id number] 7.5mg Take 1 [facility] 7.5 mg 9-08 9109 tablet by it[facility] of tablet 00:00: mouth [place] 00 daily. [facility] meloxicam 2020-0 Yes [id number] 7.5mg Take 1 [facility] 7.5 mg 9-08 9109 tablet by [facility] of tablet 00:00: mouth [place] 00 daily. [facility] meloxicam 2020-0 Yes [id number] 7.5mg Take 1 [facility] 7.5 mg 9-08 9109 tablet by [facility] of tablet 00:00: mouth [place] 00 daily. [facility] meloxicam 2020-0 Yes [id number] 7.5mg Take 1 [facility] 7.5 mg 9-08 9109 tablet by [facility] of tablet 00:00: mouth [place] 00 daily. [facility] meloxicam 2020-0 Yes [id number] 7.5mg Take 1 [facility] 7.5 mg 9-08 9109 tablet by [facility] of tablet 00:00: mouth [place] 00 daily. [facility] meloxicam 2020-0 Yes [id number] 7.5mg Take 1 [facility] 7.5 mg 9-08 9109 tablet by [facility] of tablet 00:00: mouth [place] 00 daily. [facility] meloxicam 2020-0 Yes [id number] 7.5mg Take 1 [facility] 7.5 mg 9-08 9109 tablet by ity of tablet 00:00: mouth [place] 00 daily. [facility] meloxicam 2020-0 Yes [id number] 7.5mg Take 1 [facility] 7.5 mg 9-08 9109 tablet by [facility] of tablet 00:00: mouth [place] 00 daily. [facility] meloxicam 2020-0 Yes [id number] 7.5mg Take 1 [facility] 7.5 mg 9-08 9109 tablet by [facility] of tablet 00:00: mouth [place] 00 daily. [facility] meloxicam 2020-0 Yes [id number] 7.5mg Take 1 [facility] 7.5 mg 9-08 9109 tablet by [facility] of tablet 00:00: mouth [place] 00 daily. [facility] meloxicam 2020-0 Yes [id number] 7.5mg Take 1 [facility] 7.5 mg 9-08 9109 tablet by [facility]y of tablet 00:00: mouth [place] 00 daily. [facility] meloxicam 2020-0 Yes [id number] 7.5mg Take 1 [facility] 7.5 mg 9-08 9109 tablet by [facility] of tablet 00:00: mouth [place] 00 daily. [facility] meloxicam 2020-0 Yes [id number] 7.5mg Take 1 [facility] 7.5 mg 9-08 9109 tablet by [facility] of tablet 00:00: mouth [place] 00 daily. [facility] meloxicam 2020-0 Yes [id number] 7.5mg Take 1 [facility] 7.5 mg 9-08 9109 tablet by [facility] of tablet 00:00: mouth [place] 00 daily. [facility] meloxicam 2020-0 Yes [id number] 7.5mg Take 1 [facility] 7.5 mg 9-08 9109 tablet by [facility]y of tablet 00:00: mouth [place] 00 daily. [facility] meloxicam 2020-0 Yes [id number] 7.5mg Take 1 [facility] 7.5 mg 9-08 9109 tablet by [facility]y of tablet 00:00: mouth [place] 00 daily. [facility] meloxicam 2020-0 Yes [id number] 7.5mg Take 1 [facility] 7.5 mg 9-08 9109 tablet by [facility]y of tablet 00:00: mouth [place] 00 daily. [facility] meloxicam 2020-0 Yes [id number] 7.5mg Take 1 [facility] 7.5 mg 9-08 9109 tablet by [facility] of tablet 00:00: mouth [place] 00 daily. [facility] meloxicam 2020-0 Yes [id number] 7.5mg Take 1 [facility] 7.5 mg 9-08 9109 tablet by ity of tablet 00:00: mouth [place] 00 daily. [facility] meloxicam 2020-0 Yes [id number] 7.5mg Take 1 [facility] 7.5 mg 9-08 9109 tablet by [facility]y of tablet 00:00: mouth [place] 00 daily. [facility] meloxicam 2020-0 Yes [id number] 7.5mg Take 1 [facility] 7.5 mg 9-08 9109 tablet by [facility]y of tablet 00:00: mouth [place] 00 daily. [facility] meloxicam 2020-0 Yes [id number] 7.5mg Take 1 [facility] 7.5 mg 9-08 9109 tablet by ity of tablet 00:00: mouth [place] 00 daily. [facility] meloxicam 2020-0 Yes [id number] 7.5mg Take 1 [facility] 7.5 mg 9-08 9109 tablet by [facility]y of tablet 00:00: mouth [place] 00 daily. [facility] meloxicam 2020-0 Yes [id number] 7.5mg Take 1 [facility] 7.5 mg 9-08 9109 tablet by ity of tablet 00:00: mouth [place] 00 daily. [facility] meloxicam 2020-0 Yes [id number] 7.5mg Take 1 [facility] 7.5 mg 9-08 9109 tablet by ity of tablet 00:00: mouth [place] 00 daily. [facility] meloxicam 0 Yes [id number] 7.5mg Take 1 [facility] 7.5 mg 9-08 9109 tablet by ity of tablet 00:00: mouth [place] 00 daily. [facility] meloxicam 0 Yes [id number] 7.5mg Take 1 [facility] 7.5 mg 9-08 9109 tablet by [facility]y of tablet 00:00: mouth [place] 00 daily. [facility] meloxicam 0 Yes [id number] 7.5mg Take 1 [facility] 7.5 mg 9-08 9109 tablet by ity of tablet 00:00: mouth [place] 00 daily. [facility] meloxicam 0 Yes [id number] 7.5mg Take 1 [facility] 7.5 mg 9-08 9109 tablet by ity of tablet 00:00: mouth [place] 00 daily. [facility] meloxicam Yes [id number] 7.5mg Take 1 [facility] 7.5 mg 9-08 9109 tablet by ity of tablet 00:00: mouth [place] 00 daily. [facility] meloxicam 0 Yes [id number] 7.5mg Take 1 [facility] 7.5 mg 9-08 9109 tablet by ity of tablet 00:00: mouth [place] 00 daily. [facility] meloxicam 0 Yes [id number] 7.5mg Take 1 [facility] 7.5 mg 9-08 9109 tablet by ity of tablet 00:00: mouth [place] 00 daily. [facility] meloxicam 0 Yes [id number] 7.5mg Take 1 [facility] 7.5 mg 9-08 9109 tablet by ity of tablet 00:00: mouth [place] 00 daily. [facility] meloxicam 0 Yes [id number] 7.5mg Take 1 [facility] 7.5 mg 9-08 9109 tablet by ity of tablet 00:00: mouth [place] 00 daily. [facility] meloxicam 0 Yes [id number] 7.5mg Take 1 [facility] 7.5 mg 9-08 9109 tablet by ity of tablet 00:00: mouth [place] 00 daily. [facility] meloxicam 0 Yes [id number] 7.5mg Take 1 [facility] 7.5 mg 9-08 9109 tablet by ity of tablet 00:00: mouth [place] 00 daily. [facility] meloxicam 0 Yes [id number] 7.5mg Take 1 [facility] 7.5 mg 9-08 9109 tablet by ity of tablet 00:00: mouth [place] 00 daily. [facility] meloxicam 0 Yes [id number] 7.5mg Take 1 [facility] 7.5 mg 9-08 9109 tablet by ity of tablet 00:00: mouth [place] 00 daily. [facility] meloxicam 0 Yes [id number] 7.5mg Take 1 [facility] 7.5 mg 9-08 9109 tablet by ity of tablet 00:00: mouth [place] 00 daily. [facility] meloxicam 0 Yes [id number] 7.5mg Take 1 [facility] 7.5 mg 9-08 9109 tablet by ity of tablet 00:00: mouth [place] 00 daily. [facility] meloxicam Yes [id number] 7.5mg Take 1 [facility] 7.5 mg 9-08 9109 tablet by ity of tablet 00:00: mouth [place] 00 daily. [facility] meloxicam 0 Yes [id number] 7.5mg Take 1 [facility] 7.5 mg 9-08 9109 tablet by ity of tablet 00:00: mouth [place] 00 daily. [facility] meloxicam 0 Yes [id number] 7.5mg Take 1 [facility] 7.5 mg 9-08 9109 tablet by ity of tablet 00:00: mouth [place] 00 daily. [facility] meloxicam 0 Yes [id number] 7.5mg Take 1 [facility] 7.5 mg 9-08 9109 tablet by ity of tablet 00:00: mouth [place] 00 daily. [facility] meloxicam 0 Yes [id number] 7.5mg Take 1 [facility] 7.5 mg 9-08 9109 tablet by ity of tablet 00:00: mouth [place] 00 daily. [facility] meloxicam 0 Yes [id number] 7.5mg Take 1 [facility] 7.5 mg 9-08 9109 tablet by ity of tablet 00:00: mouth [place] 00 daily. [facility] meloxicam 0 Yes [id number] 7.5mg Take 1 [facility] 7.5 mg 9-08 9109 tablet by ity of tablet 00:00: mouth [place] 00 daily. [facility] meloxicam 2021-0 Yes [id number] 7.5mg Take 1 [facility] 7.5 mg 9-08 9109 tablet by [facility]y of tablet 00:00: mouth 00 daily. [facility] meloxicam 1-0 Yes [id number] 7.5mg Take 1 [facility] 7.5 mg 9-08 9109 tablet by ity of tablet 00:00: mouth 00 daily. [facility] meloxicam 2021-0 Yes [id number] 7.5mg Take 1 [facility] 7.5 mg 9-08 9109 tablet by [facility]y of tablet 00:00: mouth 00 daily. [facility] meloxicam 2021-0 Yes [id number] 7.5mg Take 1 [facility] 7.5 mg 9-08 9109 tablet by ity of tablet 00:00: mouth 00 daily. Medical Branch diclofenac 1-0 Yes 75mg Take 1 [...] times Branch daily with meals. diclofenac 2021-0 2023- No 75mg Take 1 [facility] ers 75 mg EC 4-23 04-21 tablet by ity o f tablet 00:00: 00:00 mouth 2 [place] 00 :00 (two) Medical times Branch daily with meals. azithromyci 2020-0 Yes [id number] 250mg Take 1 [facility] n 4-20 tablet by ity of (ZITHROMAX 00:00: mouth [place] Z-SEBAS) 250 00 SEE-INSTRU Med ical mg tablet CTIONS. Branch Take 500 mg day 1, then 250 mg days 2 to 5. Nitrofurant 2020-0 Yes [id number] 100mg Take 1 [facility] oin&Nit. 4-20 capsule by ity o f Macrocryst 00:00: mouth [place] (MACROBID[place] 00 (two) Medical 100 mg times Branch capsule daily. azithromyci 2020-0 Yes [id number] 250mg Take 1 [facility] n 4-20 tablet by ity of (ZITHROMAX 00:00: mouth [place] Z-SEBAS) 250 00 SEE-INSTRU Med ical mg tablet CTIONS. Branch Take 500 mg day 1, then 250 mg days 2 to 5. azithromyci 2020-0 Yes [id number] 250mg Take 1 [facility] n 4-20 tablet by ity of (ZITHROMAX 00:00: mouth [place] Z-SEBAS) 250 00 SEE-INSTRU Med ical mg tablet CTIONS. Branch Take 500 mg day 1, then 250 mg days 2 to 5. Nitrofurant 2020-0 Yes [id number] 100mg Take 1 [facility] oin&Nit. 4-20 capsule by ity o f Macrocryst 00:00: mouth [place] (MACROBID) 00 (two) Medical 100 mg times Branch capsule daily. Nitrofurant 2020-0 Yes [id number] 100mg Take 1 [facility] oin&Nit. 4-20 capsule by ity o f Macrocryst 00:00: mouth [place] (MACROBID) 00 (two) Medical 100 mg times Branch capsule daily. azithromyci 2020-0 Yes [id number] 250mg Take 1 [facility] n 4-20 tablet by ity of (ZITHROMAX 00:00: mouth [place] Z-SEBAS) 250 00 SEE-INSTRU Med ical mg tablet CTIONS. Branch Take 500 mg day 1, then 250 mg days 2 to 5. Nitrofurant 2020-0 Yes [id number] 100mg Take 1 [facility] oin&Nit. 4-20 capsule by ity o f Macrocryst 00:00: mouth [place] (MACROBID) 00 (two) Medical 100 mg times Branch capsule daily. azithromyci 2020-0 Yes [id number] 250mg Take 1 [facility] n 4-20 tablet by ity of (ZITHROMAX 00:00: mouth [place] Z-SEBAS) 250 00 SEE-INSTRU Med ical mg tablet CTIONS. Branch Take 500 mg day 1, then 250 mg days 2 to 5. Nitrofurant 2020-0 Yes [id number] 100mg Take 1 [facility] oin&Nit. 4-20 capsule by ity o f [place]rocryst 00:00: mouth [place] (MACROBID) 00 (two) Medical 100 mg times Branch capsule daily. azithromyci 2020-0 Yes [id number] 250mg Take 1 [facility] n 4-20 tablet by ity of (ZITHROMAX 00:00: mouth [place] Z-SEBAS) 250 00 SEE-INSTRU Med ical mg tablet CTIONS. Branch Take 500 mg day 1, then 250 mg days 2 to 5. Nitrofurant 2020-0 Yes [id number] 100mg Take 1 [facility] oin&Nit. 4-20 capsule by ity o f [place]rocryst 00:00: mouth [place] (MACROBID) 00 (two) Medical 100 mg times Branch capsule daily. azithromyci 2020-0 Yes [id number] 250mg Take 1 [facility] n 4-20 tablet by ity of (ZITHROMAX 00:00: mouth [place] Z-SEBAS) 250 00 SEE-INSTRU Med ical mg tablet CTIONS. Branch Take 500 mg day 1, then 250 mg days 2 to 5. Nitrofurant 2020-0 Yes [id number] 100mg Take 1 [facility] oin&Nit. 4-20 capsule by ity o f Macrocryst 00:00: mouth [place] (MACROBID) 00 (two) Medical 100 mg times Branch capsule daily. azithromyci 2020-0 Yes [id number] 250mg Take 1 [facility] n 4-20 tablet by ity of (ZITHROMAX 00:00: mouth [place] Z-SEBAS) 250 00 SEE-INSTRU Med ical mg tablet CTIONS. Branch Take 500 mg day 1, then 250 mg days 2 to 5. Nitrofurant 2020-0 Yes [id number] 100mg Take 1 [facility] oin&Nit. 4-20 capsule by ity o f Macrocryst 00:00: mouth [place] (MACROBID) 00 (two) Medical 100 mg times Branch capsule daily. azithromyci 2020-0 Yes [id number] 250mg Take 1 [facility] n 4-20 tablet by ity of (ZITHROMAX 00:00: mouth [place] Z-SEBAS) 250 00 SEE-INSTRU Med ical mg tablet CTIONS. Branch Take 500 mg day 1, then 250 mg days 2 to 5. Nitrofurant 2020-0 Yes [id number] 100mg Take 1 [facility] oin&Nit. 4-20 capsule by ity o f [place]ryst 00:00: mouth [place] (MACROBID) 00 (two) Medical 100 mg times Branch capsule daily. azithromyci 2020-0 Yes [id number] 250mg Take 1 [facility] n 4-20 tablet by ity of (ZITHROMAX 00:00: mouth [place] Z-SEBAS) 250 00 SEE-INSTRU Med ical mg tablet CTIONS. Branch Take 500 mg day 1, then 250 mg days 2 to 5. Nitrofurant 2020-0 Yes [id number] 100mg Take 1 [facility] oin&Nit. 4-20 capsule by ity o f Macrocryst 00:00: mouth [place] (MACROBID) 00 (two) Medical 100 mg times Branch capsule daily. azithromyci 2020-0 Yes [id number] 250mg Take 1 [facility] n 4-20 tablet by ity of (ZITHROMAX 00:00: mouth [place] Z-SEBAS) 250 00 SEE-INSTRU Med ical mg tablet CTIONS. Branch Take 500 mg day 1, then 250 mg days 2 to 5. Nitrofurant 2020-0 Yes [id number] 100mg Take 1 [facility] oin&Nit. 4-20 capsule by ity o f Macrocryst 00:00: mouth [place] (MACROBID) 00 (two) Medical 100 mg times Branch capsule daily. azithromyci 2020-0 Yes [id number] 250mg Take 1 [facility] n 4-20 tablet by ity of (ZITHROMAX 00:00: mouth [place] Z-SEBAS) 250 00 SEE-INSTRU Med ical mg tablet CTIONS. Branch Take 500 mg day 1, then 250 mg days 2 to 5. Nitrofurant 2020-0 Yes [id number] 100mg Take 1 [facility] oin&Nit. 4-20 capsule by ity o f [place]rocryst 00:00: mouth [place] (MACROBID) 00 (two) Medical 100 mg times Branch capsule daily. azithromyci 2020-0 Yes [id number] 250mg Take 1 [facility] n 4-20 tablet by ity of (ZITHROMAX 00:00: mouth [place] Z-SEBAS) 250 00 SEE-INSTRU Med ical mg tablet CTIONS. Branch Take 500 mg day 1, then 250 mg days 2 to 5. Nitrofurant 2020-0 Yes [id number] 100mg Take 1 [facility] oin&Nit. 4-20 capsule by ity o f [place]rocryst 00:00: mouth [place] (MACROBID) 00 (two) Medical 100 mg times Branch capsule daily. azithromyci 2020-0 Yes [id number] 250mg Take 1 [facility] n 4-20 tablet by ity of (ZITHROMAX 00:00: mouth [place] Z-SEBAS) 250 00 SEE-INSTRU Med ical mg tablet CTIONS. Branch Take 500 mg day 1, then 250 mg days 2 to 5. Nitrofurant 2020-0 Yes [id number] 100mg Take 1 [facility] oin&Nit. 4-20 capsule by ity o f [place]rocryst 00:00: mouth [place] (MACROBID) 00 (two) Medical 100 mg times Branch capsule daily. azithromyci 2020-0 Yes [id number] 250mg Take 1 [facility] n 4-20 tablet by ity of (ZITHROMAX 00:00: mouth [place] Z-SEBAS) 250 00 SEE-INSTRU Med ical mg tablet CTIONS. Branch Take 500 mg day 1, then 250 mg days 2 to 5. Nitrofurant 2020-0 Yes [id number] 100mg Take 1 [facility] oin&Nit. 4-20 capsule by ity o f [place]ryst 00:00: mouth 2 [place] (MACROBID) 00 (two) Medical 100 mg times Branch capsule daily. azithromyci 2020-0 Yes [id number] 250mg Take 1 [facility] n 4-20 tablet by ity of (ZITHROMAX 00:00: mouth [place] Z-SEBAS) 250 00 SEE-INSTRU Med ical mg tablet CTIONS. Branch Take 500 mg day 1, then 250 mg days 2 to 5. Nitrofurant 2020-0 Yes [id number] 100mg Take 1 [facility] oin&Nit. 4-20 capsule by ity o f [facility] 00:00: mouth 2 [place] (MACROBID) 00 (two) Medical 100 mg times Branch capsule daily. azithromyci 2020-0 Yes [id number] 250mg Take 1 [facility] n 4-20 tablet by ity of (ZITHROMAX 00:00: mouth [place] Z-SEBAS) 250 00 SEE-INSTRU Med ical mg tablet CTIONS. Branch Take 500 mg day 1, then 250 mg days 2 to 5. Nitrofurant 2020-0 Yes [id number] 100mg Take 1 [facility] oin&Nit. 4-20 capsule by ity o f [facility]ryst 00:00: mouth 2 [place] (MACROBID) 00 (two) Medical 100 mg times Branch capsule daily. azithromyci 2020-0 Yes [id number] 250mg Take 1 [facility] n 4-20 tablet by ity of (ZITHROMAX 00:00: mouth [place] Z-SEBAS) 250 00 SEE-INSTRU Med ical mg tablet CTIONS. Branch Take 500 mg day 1, then 250 mg days 2 to 5. Nitrofurant 2020-0 Yes [id number] 100mg Take 1 [facility] oin&Nit. 4-20 capsule by ity o f [facility]ryst 00:00: mouth 2 [place] (MACROBID) 00 (two) Medical 100 mg times Branch capsule daily. azithromyci 2020-0 Yes [id number] 250mg Take 1 [facility] n 4-20 tablet by ity of (ZITHROMAX 00:00: mouth [place] Z-SEBAS) 250 00 SEE-INSTRU Med ical mg tablet CTIONS. Branch Take 500 mg day 1, then 250 mg days 2 to 5. Nitrofurant 2020-0 Yes [id number] 100mg Take 1 [facility] oin&Nit. 4-20 capsule by ity o f [place] 00:00: mouth [place] (MACROBID) 00 (two) Medical 100 mg times Branch capsule daily. azithromyci 2020-0 Yes [id number] 250mg Take 1 [facility] 4-20 tablet by ity of (ZITHROMAX 00:00: mouth [place] Z-SEBAS) 250 00 SEE-INSTRU Med ical mg tablet CTIONS. Branch Take 500 mg day 1, then 250 mg days 2 to 5. Nitrofurant 2020-0 Yes [id number] 100mg Take 1 [facility] oin&Nit. 4-20 capsule [place] [facility] [place] (two) Medical 100 mg times Branch capsule daily. azithromyci 2020-0 Yes [id number] 250mg Take 1 [facility] 4-20 tablet by ity of (ZITHROMAX 00:00: mouth [place] Z-SEBAS) 250 00 SEE-INSTRU Med ical mg tablet CTIONS. Branch Take 500 mg day 1, then 250 mg days 2 to 5. Nitrofurant 2020-0 Yes [id number] 100mg Take 1 [facility]&Nit. 4-20 capsule by [facility] [place] [place] ([place]CR[place] (two) Medical 100 mg times Branch capsule daily. azithromyci 2020-0 Yes [id number] 250mg Take 1 [facility] 4-20 tablet by ity of (ZITHROMAX 00:00: mouth [place] Z-SEBAS) 250 00 SEE-INSTRU Med ical mg tablet CTIONS. Branch Take 500 mg day 1, then 250 mg days 2 to 5. Nitrofurant 2020-0 Yes [id number] 100mg Take 1 [facility]it. 4-20 capsule by [facility] [place] [place] ([place]CR[place] (two) Medical 100 mg times Branch capsule daily. azithromyci 2020-0 Yes [id number] 250mg Take 1 [facility] 4-20 tablet by ity of (ZITHROMAX 00:00: mouth [place] Z-SEBAS) 250 00 SEE-INSTRU Med ical mg tablet CTIONS. Branch Take 500 mg day 1, then 250 mg days 2 to 5. Nitrofurant 2020-0 Yes [id number] 100mg Take 1 [facility] oin&Nit. 4-20 capsule by [facility] [place] ([place]CR[place] 00 (two) Medical 100 mg times Branch capsule daily. azithromyci 2020-0 Yes [id number] 250mg Take 1 [facility] 4-20 tablet by ity of (ZITHROMAX 00:00: mouth [place] Z-SEBAS) 250 00 SEE-INSTRU Med ical mg tablet CTIONS. Branch Take 500 mg day 1, then 250 mg days 2 to 5. azithromyci 2020-0 Yes [id number] 250mg Take 1 [facility] 4-20 tablet by ity of (ZITHROMAX 00:00: mouth [place] Z-SEBAS) 250 00 SEE-INSTRU Med ical mg tablet CTIONS. Branch Take 500 mg day 1, then 250 mg days 2 to 5. Nitrofurant 2020-0 Yes [id number] 100mg Take 1 [facility]it. 4-20 capsule by [facility] [place] [place] ([place]CR[place] (two) Medical 100 mg times Branch capsule daily. Nitrofurant 2020-0 Yes [id number] 100mg Take 1 [facility]it. 4-20 capsule by [facility] [place] [place] ([place]CR[place] 00 (two) Medical 100 mg times Branch capsule daily. azithromyci 2020-0 Yes [id number] 250mg Take 1 [facility] 4-20 tablet by ity of (ZITHROMAX 00:00: mouth [place] Z-SEBAS) 250 00 SEE-INSTRU Med ical mg tablet CTIONS. Branch Take 500 mg day 1, then 250 mg days 2 to 5. Nitrofurant 2020-0 Yes [id number] 100mg Take 1 [facility]it. 4-20 capsule by [facility] [place] ([place]CR[place] 00 (two) Medical 100 mg times Branch capsule daily. azithromyci 2020-0 Yes [id number] 250mg Take 1 [facility] 4-20 tablet by ity of (ZITHROMAX 00:00: mouth [place] Z-SEBAS) 250 00 SEE-INSTRU Med ical mg tablet CTIONS. Branch Take 500 mg day 1, then 250 mg days 2 to 5. Nitrofurant 2020-0 Yes [id number] 100mg Take 1 [facility]it. 4-20 capsule by [facility] [place] [place]: [place] ([place]CR[place]) 00 (two) Medical 100 mg times Branch capsule daily. azithromyci 2020-0 Yes [id number] 250mg Take 1 [facility] 4-20 tablet by ity of (ZITHROMAX 00:00: mouth [place] Z-SEBAS) 250 00 SEE-INSTRU Med ical mg tablet CTIONS. Branch Take 500 mg day 1, then 250 mg days 2 to 5. Nitrofurant 2020-0 Yes [id number] 100mg Take 1 [facility]it. 4-20 capsule by [facility] [place] [place]: [place] ([place]CR[place] 00 (two) Medical 100 mg times Branch capsule daily. azithromyci 2020-0 Yes [id number] 250mg Take 1 [facility] 4-20 tablet by ity of (ZITHROMAX 00:00: mouth [place] Z-SEBAS) 250 00 SEE-INSTRU Med ical mg tablet CTIONS. Branch Take 500 mg day 1, then 250 mg days 2 to 5. Nitrofurant 2020-0 Yes [id number] 100mg Take 1 [facility] oin&Nit. 4-20 capsule by [facility] o [facility] 00:[place]: [place] ([place]CR[place]ID) 00 (two) Medical 100 mg times Branch capsule daily. azithromyci 2020-0 Yes [id number] 250mg Take 1 [facility] n 4-20 tablet by ity of (ZITHROMAX 00:00: mouth [place] Z-SEBAS) 250 00 SEE-INSTRU Med ical mg tablet CTIONS. Branch Take 500 mg day 1, then 250 mg days 2 to 5. Nitrofurant 2020-0 Yes [id number] 100mg Take 1 [facility] oin&Nit. 4-20 capsule by [facility] o [facility] [place] [place]: [place] ([place]CROBID) 00 (two) Medical 100 mg times Branch capsule daily. azithromyci 2021-0 Yes [id number] 250mg Take 1 [facility] 4-20 tablet by ity of (ZITHROMAX 00:00: mouth [place] Z-SEBAS) 250 00 SEE-INSTRU Med ical mg tablet CTIONS. Branch Take 500 mg day 1, then 250 mg days 2 to 5. Nitrofurant 2020-0 Yes [id number] 100mg Take 1 [facility]Nit. 4-20 capsule by [facility] o [facility] [place] 00:[place]: [place] ([place]CR[place]ID) 00 (two) Medical 100 mg times Branch capsule daily. azithromyci 2020-0 Yes [id number] 250mg Take 1 [facility] 4-20 tablet by ity of (ZITHROMAX 00:00: mouth [place] Z-SEBAS) 250 00 SEE-INSTRU Med ical mg tablet CTIONS. Branch Take 500 mg day 1, then 250 mg days 2 to 5. Nitrofurant 2020-0 Yes [id number] 100mg Take 1 [facility]in[facility]it. 4-20 capsule by [facility] o [facility] 00:[place]: [place] ([place]CR[place]ID) 00 (two) Medical 100 mg times Branch capsule daily. azithromyci 2020-0 Yes [id number] 250mg Take 1 [facility] 4-20 tablet by ity of (ZITHROMAX 00:00: mouth [place] Z-SEBAS) 250 00 SEE-INSTRU Med ical mg tablet CTIONS. Branch Take 500 mg day 1, then 250 mg days 2 to 5. Nitrofurant 2020-0 Yes [id number] 100mg Take 1 [facility]it. 4-20 capsule by [facility] 00:[place]: [place] ([place]CR[place]) 00 (two) Medical 100 mg times Branch capsule daily. azithromyci 2020-0 Yes [id number] 250mg Take 1 [facility] 4-20 tablet by ity of (ZITHROMAX 00:00: mouth [place] Z-SEBAS) 250 00 SEE-INSTRU Med ical mg tablet CTIONS. Branch Take 500 mg day 1, then 250 mg days 2 to 5. Nitrofurant 2020-0 Yes [id number] 100mg Take 1 [facility]it. 4-20 capsule by [facility] [place]: [place] ([place]CR[place]) 00 (two) Medical 100 mg times Branch capsule daily. azithromyci 2020-0 Yes [id number] 250mg Take 1 [facility] 4-20 tablet by ity of (ZITHROMAX 00:00: mouth [place] Z-SEBAS) 250 00 SEE-INSTRU Med ical mg tablet CTIONS. Branch Take 500 mg day 1, then 250 mg days 2 to 5. Nitrofurant 2020-0 Yes [id number] 100mg Take 1 [facility]it. 4-20 capsule by [facility] [place] 00:[place]: [place] ([place]CR[place]) 00 (two) Medical 100 mg times Branch capsule daily. azithromyci 2020-0 Yes [id number] 250mg Take 1 [facility] 4-20 tablet by ity of (ZITHROMAX 00:00: mouth [place] Z-SEBAS) 250 00 SEE-INSTRU Med ical mg tablet CTIONS. Branch Take 500 mg day 1, then 250 mg days 2 to 5. Nitrofurant 2020-0 Yes [id number] 100mg Take 1 [facility]it. 4-20 capsule by [facility] [place]: [place] ([place]CR[place]) 00 (two) Medical 100 mg times Branch capsule daily. azithromyci 2020-0 Yes [id number] 250mg Take 1 [facility] 4-20 tablet by ity of (ZITHROMAX 00:00: mouth [place] Z-SEBAS) 250 00 SEE-INSTRU Med ical mg tablet CTIONS. Branch Take 500 mg day 1, then 250 mg days 2 to 5. Nitrofurant 2020-0 Yes [id number] 100mg Take 1 [facility]. 4-20 capsule by [facility] [place]: [place] ([place]CR[place]ID) 00 (two) Medical 100 mg times Branch capsule daily. azithromyci 2020-0 Yes [id number] 250mg Take 1 [facility] 4-20 tablet by ity of (ZITHROMAX 00:00: mouth [place] Z-SEBAS) 250 00 SEE-INSTRU Med ical mg tablet CTIONS. Branch Take 500 mg day 1, then 250 mg days 2 to 5. Nitrofurant 2020-0 Yes [id number] 100mg Take 1 [facility]it. 4-20 capsule by [facility] o [facility] [place]: [place] ([place]CR[place]) 00 (two) Medical 100 mg times Branch capsule daily. azithromyci 2020-0 Yes [id number] 250mg Take 1 [facility] 4-20 tablet by ity of (ZITHROMAX 00:00: mouth [place] Z-SEBAS) 250 00 SEE-INSTRU Med ical mg tablet CTIONS. Branch Take 500 mg day 1, then 250 mg days 2 to 5. Nitrofurant 2020-0 Yes [id number] 100mg Take 1 [facility]it. 4-20 capsule by [facility] o [facility] 00:[place]: [place] ([place]CR[place]ID) 00 (two) Medical 100 mg times Branch capsule daily. azithromyci 2020-0 Yes [id number] 250mg Take 1 [facility] 4-20 tablet by ity of (ZITHROMAX 00:00: mouth [place] Z-SEBAS) 250 00 SEE-INSTRU Med ical mg tablet CTIONS. Branch Take 500 mg day 1, then 250 mg days 2 to 5. Nitrofurant 2020-0 Yes [id number] 100mg Take 1 [facility] oin[facility]Nit. 4-20 capsule by [facility] o [facility] 00:[place]: [place] ([place]CR[place]) 00 (two) Medical 100 mg times Branch capsule daily. azithromyci 2020-0 Yes [id number] 250mg Take 1 [facility] 4-20 tablet by ity of (ZITHROMAX 00:00: mouth [place] Z-SEBAS) 250 00 SEE-INSTRU Med ical mg tablet CTIONS. Branch Take 500 mg day 1, then 250 mg days 2 to 5. Nitrofurant 2020-0 Yes [id number] 100mg Take 1 [facility] oin[facility]Nit. 4-20 capsule by [facility] o [facility] [place]: [place] ([place]CROBID) 00 (two) Medical 100 mg times Branch capsule daily. azithromyci 2020-0 Yes [id number] 250mg Take 1 [facility] n 4-20 tablet by ity of (ZITHROMAX 00:00: mouth [place] Z-SEBAS) 250 00 SEE-INSTRU Med ical mg tablet CTIONS. Branch Take 500 mg day 1, then 250 mg days 2 to 5. Nitrofurant 2020-0 Yes [id number] 100mg Take 1 [facility] oin[facility]Nit. 4-20 capsule by [facility] o [facility] 00:[place]: [place] ([place]CR[place]ID) 00 (two) Medical 100 mg times Branch capsule daily. azithromyci 2020-0 Yes [id number] 250mg Take 1 [facility] n 4-20 tablet by ity of (ZITHROMAX 00:00: mouth [place] Z-SEBAS) 250 00 SEE-INSTRU Med ical mg tablet CTIONS. Branch Take 500 mg day 1, then 250 mg days 2 to 5. Nitrofurant 2020-0 Yes [id number] 100mg Take 1 [facility] oin&Nit. 4-20 capsule by [facility] o [facility] 00:[place]: [place] (MACROBID) 00 (two) Medical 100 mg times Branch capsule daily. azithromyci 2020-0 Yes [id number] 250mg Take 1 [facility] n 4-20 tablet by ity of (ZITHROMAX 00:00: mouth [place] Z-SEBAS) 250 00 SEE-INSTRU Med ical mg tablet CTIONS. Branch Take 500 mg day 1, then 250 mg days 2 to 5. Nitrofurant 2020-0 Yes [id number] 100mg Take 1 [facility] oin&Nit. 4-20 capsule by [facility] o [facility] 00:[place]: [place] ([place]CROBID) 00 (two) Medical 100 mg times Branch capsule daily. azithromyci 2020-0 Yes [id number] 250mg Take 1 [facility] n 4-20 tablet by ity of (ZITHROMAX 00:00: mouth [place] Z-SEBAS) 250 00 SEE-INSTRU Med ical mg tablet CTIONS. Branch Take 500 mg day 1, then 250 mg days 2 to 5. Nitrofurant 2020-0 Yes [id number] 100mg Take 1 [facility] oin&Nit. 4-20 capsule by [facility] o [facility] 00:[place]: [place] ([place]CROBID) 00 (two) Medical 100 mg times Branch capsule daily. azithromyci 2020-0 Yes [id number] 250mg Take 1 [facility] n 4-20 tablet by ity of (ZITHROMAX 00:00: mouth [place] Z-SEBAS) 250 00 SEE-INSTRU Med ical mg tablet CTIONS. Branch Take 500 mg day 1, then 250 mg days 2 to 5. Nitrofurant 2020-0 Yes [id number] 100mg Take 1 [facility] oin&Nit. 4-20 capsule by [facility] o [facility] 00:[place]: [place] ([place]CROBID) 00 (two) Medical 100 mg times Branch capsule daily. azithromyci 2020-0 Yes [id number] 250mg Take 1 [facility] n 4-20 tablet by ity of (ZITHROMAX 00:00: mouth [place] Z-SEBAS) 250 00 SEE-INSTRU Med ical mg tablet CTIONS. Branch Take 500 mg day 1, then 250 mg days 2 to 5. Nitrofurant 2020-0 Yes [id number] 100mg Take 1 [facility] oin&Nit. 4-20 capsule by [facility] o [facility] 00:00: [place] (MACROBID) 00 (two) Medical 100 mg times Branch capsule daily. azithromyci 2020-0 Yes [id number] 250mg Take 1 [facility] n 4-20 tablet by ity of (ZITHROMAX 00:00: mouth [place] Z-SEBAS) 250 00 SEE-INSTRU Med ical mg tablet CTIONS. Branch Take 500 mg day 1, then 250 mg days 2 to 5. Nitrofurant 2020-0 Yes [id number] 100mg Take 1 [facility] oin&Nit. 4-20 capsule by [facility] o [facility] 00:00: [place] ([place]CROBID) 00 (two) Medical 100 mg times Branch capsule daily. azithromyci 2020-0 Yes [id number] 250mg Take 1 [facility] n 4-20 tablet by ity of (ZITHROMAX 00:00: mouth [place] Z-SEBAS) 250 00 SEE-INSTRU Med ical mg tablet CTIONS. Branch Take 500 mg day 1, then 250 mg days 2 to 5. Nitrofurant 2020-0 Yes [id number] 100mg Take 1 [facility] oin&Nit. 4-20 capsule by [facility] o [facility] 00:00: [place] ([place]CROBID) 00 (two) Medical 100 mg times Branch capsule daily. azithromyci 2020-0 Yes [id number] 250mg Take 1 [facility] n 4-20 tablet by ity of (ZITHROMAX 00:00: mouth [place] Z-SEBAS) 250 00 SEE-INSTRU Med ical mg tablet CTIONS. Branch Take 500 mg day 1, then 250 mg days 2 to 5. Nitrofurant 2020-0 Yes [id number] 100mg Take 1 [facility] oin&Nit. 4-20 capsule by [facility] o [facility] 00:00: [place] ([place]CROBID) 00 (two) Medical 100 mg times Branch capsule daily. azithromyci 2020-0 Yes [id number] 250mg Take 1 [facility] n 4-20 tablet by ity of (ZITHROMAX 00:00: mouth [place] Z-SEBAS) 250 00 SEE-INSTRU Med ical mg tablet CTIONS. Branch Take 500 mg day 1, then 250 mg days 2 to 5. Nitrofurant 2020-0 Yes [id number] 100mg Take 1 [facility] oin&Nit. 4-20 capsule by [facility] o f [facility] 00:00: [place] (MACROBID) 00 (two) Medical 100 mg times Branch capsule daily. azithromyci 2020-0 Yes [id number] 250mg Take 1 [facility] n 4-20 tablet by ity of (ZITHROMAX 00:00: mouth [place] Z-SEBAS) 250 00 SEE-INSTRU Med ical mg tablet CTIONS. Branch Take 500 mg day 1, then 250 mg days 2 to 5. Nitrofurant 2020-0 Yes [id number] 100mg Take 1 [facility] oin&Nit. 4-20 capsule by [facility] o [facility] 00:00: [place] ([place]CROBID) 00 (two) Medical 100 mg times Branch capsule daily. azithromyci 2020-0 Yes [id number] 250mg Take 1 [facility] n 4-20 tablet by ity of (ZITHROMAX 00:00: mouth [place] Z-SEBAS) 250 00 SEE-INSTRU Med ical mg tablet CTIONS. Branch Take 500 mg day 1, then 250 mg days 2 to 5. Nitrofurant 2020-0 Yes [id number] 100mg Take 1 [facility] oin&Nit. 4-20 capsule by [facility] o f [facility] 00:00: mouth [place] ([place]CROBID) 00 (two) Medical 100 mg times Branch capsule daily. azithromyci 2020-0 Yes [id number] 250mg Take 1 [facility] n 4-20 tablet by ity of (ZITHROMAX 00:00: mouth [place] Z-SEBAS) 250 00 SEE-INSTRU Med ical mg tablet CTIONS. Branch Take 500 mg day 1, then 250 mg days 2 to 5. Nitrofurant 2020-0 Yes [id number] 100mg Take 1 [facility] oin&Nit. 4-20 capsule by [facility] o [facility] 00:00: [place] ([place]CROBID) 00 (two) Medical 100 mg times Branch capsule daily. azithromyci 2020-0 Yes [id number] 250mg Take 1 [facility] n 4-20 tablet by ity of (ZITHROMAX 00:00: mouth [place] Z-SEBAS) 250 00 SEE-INSTRU Med ical mg tablet CTIONS. Branch Take 500 mg day 1, then 250 mg days 2 to 5. Nitrofurant 2020-0 Yes [id number] 100mg Take 1 [facility] oin&Nit. 4-20 capsule by [facility] o f [facility] 00:00: [place] (MACROBID) 00 (two) Medical 100 mg times Branch capsule daily. azithromyci 2020-0 Yes [id number] 250mg Take 1 [facility] n 4-20 tablet by ity of (ZITHROMAX 00:00: mouth [place] Z-SEBAS) 250 00 SEE-INSTRU Med ical mg tablet CTIONS. Branch Take 500 mg day 1, then 250 mg days 2 to 5. Nitrofurant 2020-0 Yes [id number] 100mg Take 1 [facility] oin&Nit. 4-20 capsule by [facility] o [facility] 00:00: [place] (MACROBID) 00 (two) Medical 100 mg times Branch capsule daily. azithromyci 2020-0 Yes [id number] 250mg Take 1 [facility] n 4-20 tablet by ity of (ZITHROMAX 00:00: mouth [place] Z-SEBAS) 250 00 SEE-INSTRU Med ical mg tablet CTIONS. Branch Take 500 mg day 1, then 250 mg days 2 to 5. Nitrofurant 2020-0 Yes [id number] 100mg Take 1 [facility] oin&Nit. 4-20 capsule by [facility] o [facility] 00:00: [place] (MACROBID) 00 (two) Medical 100 mg times Branch capsule daily. azithromyci 2020-0 Yes [id number] 250mg Take 1 [facility] n 4-20 tablet by ity of (ZITHROMAX 00:00: mouth [place] Z-SEBAS) 250 00 SEE-INSTRU Med ical mg tablet CTIONS. Branch Take 500 mg day 1, then 250 mg days 2 to 5. Nitrofurant 2020-0 Yes [id number] 100mg Take 1 [facility] oin&Nit. 4-20 capsule by [facility] o [place] [facility] 00:[place]: [place] (MACROBID) 00 (two) Medical 100 mg times Branch capsule daily. azithromyci 2020-0 Yes [id number] 250mg Take 1 [facility] n 4-20 tablet by ity of (ZITHROMAX 00:00: mouth [place] Z-SEBAS) 250 00 SEE-INSTRU Med ical mg tablet CTIONS. Branch Take 500 mg day 1, then 250 mg days 2 to 5. Nitrofurant 2020-0 Yes [id number] 100mg Take 1 [facility] oin&Nit. 4-20 capsule by [facility] o [place] [facility] 00:00: [place] (MACROBID) 00 (two) Medical 100 mg times Branch capsule daily. azithromyci 2020-0 Yes [id number] 250mg Take 1 [facility] n 4-20 tablet by ity of (ZITHROMAX 00:00: mouth [place] Z-SEBAS) 250 00 SEE-INSTRU Med ical mg tablet CTIONS. Branch Take 500 mg day 1, then 250 mg days 2 to 5. Nitrofurant 2020-0 Yes [id number] 100mg Take 1 [facility] oin&Nit. 4-20 capsule by [facility] o [place] [facility] 00:[place]: [place] ([place]CROBID) 00 (two) Medical 100 mg times Branch capsule daily. azithromyci 2020-0 Yes [id number] 250mg Take 1 [facility] n 4-20 tablet by ity of (ZITHROMAX 00:00: mouth [place] Z-SEBAS) 250 00 SEE-INSTRU Med ical mg tablet CTIONS. Branch Take 500 mg day 1, then 250 mg days 2 to 5. Nitrofurant 2020-0 Yes [id number] 100mg Take 1 [facility] oin&Nit. 4-20 capsule by [facility] o [place] [facility] 00:[place]: [place] (MACROBID) 00 (two) Medical 100 mg times Branch capsule daily. azithromyci 2020-0 Yes [id number] 250mg Take 1 [facility] n 4-20 tablet by ity of (ZITHROMAX 00:00: mouth [place] Z-SEBAS) 250 00 SEE-INSTRU Med ical mg tablet CTIONS. Branch Take 500 mg day 1, then 250 mg days 2 to 5. Nitrofurant 2020- Yes [id number] 100mg Take 1 [facility] oin&Nit. 4-20 capsule by [facility] o [place] [facility] 00:[place]: [place] (MACROBID) 00 (two) Medical 100 mg times Branch capsule daily. azithromyci Yes [id number] 250mg Take 1 [facility] n 4-20 tablet by ity of (ZITHROMAX 00:00: mouth [place] Z-SEBAS) 250 00 SEE-INSTRU Med ical mg tablet CTIONS. Branch Take 500 mg day 1, then 250 mg days 2 to 5. Nitrofurant 0 Yes [id number] 100mg Take 1 [facility] oin&Nit. 4-20 capsule by [facility] o [place] [facility] 00:[place]: [place] ([place]CROBID) 00 (two) Medical 100 mg times Branch capsule daily. azithromyci 0 Yes [id number] 250mg Take 1 [facility] n 4-20 tablet by ity of (ZITHROMAX 00:00: mouth [place] Z-SEBAS) 250 00 SEE-INSTRU Med ical mg tablet CTIONS. Branch Take 500 mg day 1, then 250 mg days 2 to 5. Nitrofurant 0 Yes [id number] 100mg Take 1 [facility] oin&Nit. 4-20 capsule [...] Branch ON AREDS-2 ORAL) bromphenira 2015-07 Yes [place] [facility] laure mine-pseudo 1-22 ity of ephedrine-D 00:00: [place] [facility] (BROMFED 00 Medical DM) 2-30-10 Branch mg/5 mL syrup bromphenira 2015-07 Yes [facility] laure mine-pseudo 1-22 ity of ephedrine-D 00:00: [place] M (BROMFED 00 Medical DM) 2-30-10 Branch mg/5 mL syrup bromphenira 2015- Yes [facility] mine-pseudo 1-22 ity of ephedrine-D 00:00: [facility] (BROMFED 00 Medical DM) 2-30-10 Branch mg/5 mL syrup bromphenira 2016- Yes [facility] mine-pseudo 1-22 ity of ephedrine-D 00:00: [facility] (BROMFED 00 Medical DM) 2-30-10 Branch mg/5 mL syrup bromphenira 2016 Yes [place] [facility] mine-pseudo 1-22 ity of ephedrine-D 00:00: [facility] (BROMFED 00 Medical DM) 2-30-10 Branch mg/5 mL syrup bromphenira 2016 Yes [facility] mine-pseudo 1-22 ity of ephedrine-D 00:00: [facility] (BROMFED 00 Medical DM) 2-30-10 Branch mg/5 mL syrup bromphenira 2015-07 Yes [facility] myers-pseudo 1-22 ity of ephedrine-D 00:00: [facility] (BROMFED 00 Medical DM) 2-30-10 Branch mg/5 mL syrup bromphenira 2016 Yes [facility] mine-pseudo 1-22 ity of ephedrine-D 00:00: [facility] (BROMFED 00 Medical DM) 2-30-10 Branch mg/5 mL syrup bromphenira 2016- Yes [facility] myers-pseudo 1-22 ity of ephedrine-D 00:00: [facility] (BROMFED 00 Medical DM) 2-30-10 Branch mg/5 mL syrup bromphenira 2016- Yes [facility] kel[facility] mine-pseudo 1-22 ity of ephedrine-D 00:00: [facility] (BROMFED 00 Medical DM) 2-30-10 Branch mg/5 mL syrup bromphenira 2015- Yes [facility] mine-pseudo 1-22 ity of ephedrine-D 00:00: [facility] (BROMFED 00 Medical DM) 2-30-10 Branch mg/5 mL syrup bromphenira 2015- Yes [facility] mine-pseudo 1-22 ity of ephedrine-D 00:00: [facility] (BROMFED 00 Medical DM) 2-30-10 Branch mg/5 mL syrup bromphenira 2015-1 Yes [facility] k[facility] mine-pseudo 1-22 ity of ephedrine-D 00:00: [facility] (BROMFED 00 Medical DM) 2-30-10 Branch mg/5 mL syrup bromphenira 2016 Yes [facility] k[facility] mine-pseudo 1-22 ity of ephedrine-D 00:00: [facility] (BROMFED 00 Medical DM) 2-30-10 Branch mg/5 mL syrup bromphenira 2016 Yes [facility] kel[facility] mine-pseudo 1-22 ity of ephedrine-D 00:00: [facility] (BROMFED 00 Medical DM) 2-30-10 Branch mg/5 mL syrup bromphenira 2015-07 Yes [facility] mine-pseudo 1-22 ity of ephedrine-D 00:00: [facility] (BROMFED 00 Medical DM) 2-30-10 Branch mg/5 mL syrup bromphenira 2015-07 Yes [facility] mine-pseudo 1-22 ity of ephedrine-D 00:00: [facility] (BROMFED 00 Medical DM) 2-30-10 Branch mg/5 mL syrup bromphenira 2015-07 Yes [facility] mine-pseudo 1-22 ity of ephedrine-D 00:00: [facility] (BROMFED 00 Medical DM) 2-30-10 Branch mg/5 mL syrup bromphenira 2015-07 Yes [facility] mine-pseudo 1-22 ity of ephedrine-D 00:00: [facility] (BROMFED 00 Medical DM) 2-30-10 Branch mg/5 mL syrup bromphenira 2016 Yes [facility] k[facility] mine-pseudo 1-22 ity of ephedrine-D 00:00: [facility] (BROMFED 00 Medical DM) 2-30-10 Branch mg/5 mL syrup bromphenira 2015-07 Yes [facility] mine-pseudo 1-22 ity of ephedrine-D 00:00: [facility] (BROMFED 00 Medical DM) 2-30-10 Branch mg/5 mL syrup bromphenira 2015-07 Yes [facility] [facility] mine-pseudo 1-22 ity of ephedrine-D 00:00: [facility] (BROMFED 00 Medical DM) 2-30-10 Branch mg/5 mL syrup bromphenira 2015-07 Yes [facility] mine-pseudo 1-22 ity of ephedrine-D 00:00: [facility] (BROMFED 00 Medical DM) 2-30-10 Branch mg/5 mL syrup bromphenira 2016 Yes Univer s mine-pseudo 1-22 ity of ephedrine-D 00:00: [facility] (BROMFED 00 Medical DM) 2-30-10 Branch mg/5 mL syrup bromphenira 2015-07 Yes Univer s mine-pseudo 1-22 ity of ephedrine-D 00:00: [facility] (BROMFED 00 Medical DM) 2-30-10 Branch mg/5 mL syrup bromphenira 2015-07 Yes Univer s mine-pseudo 1-22 ity of ephedrine-D 00:00: [facility] (BROMFED 00 Medical DM) 2-30-10 Branch mg/5 mL syrup bromphenira 2015-07 Yes Univer s mine-pseudo 1-22 ity of ephedrine-D 00:00: [facility] (BROMFED 00 Medical DM) 2-30-10 Branch mg/5 mL syrup bromphenira 2015-07 Yes [facility] mine-pseudo 1-22 ity of ephedrine-D 00:00: [facility] (BROMFED 00 Medical DM) 2-30-10 Branch mg/5 mL syrup bromphenira 2015-07 Yes Univcindy s mine-pseudo 1-22 ity of ephedrine-D 00:00: [facility] (BROMFED 00 Medical DM) 2-30-10 Branch mg/5 mL syrup bromphenira 2015-073- No Univdeirdre rs mine-pseudo 1-22 06-06 ity of ephedrine-D 00:00: 00:00 [facility] (BROMFED 00 :00 Medical DM) 2-30-10 Branch mg/5 mL syrup atorvastati 2015-07 Yes [facility] s n (LIPITOR) 1-12 ity of 40 mg 00:00: [place] tablet 00 Medical Branch atorvastati 2015-07 Yes [facility] n (LIPITOR) [...] 00:00: [place] tablet 00 Medical Branch atorvastati 2016 Yes Univer s n (LIPITOR) 1-12 ity of 40 mg 00:00: [place] tablet Medical Branch atorvastati 2016- Yes Univer s n (LIPITOR) 1-12 ity of 40 mg 00:00: [place] tablet 00 Medical Branch atorvastati 2016 Yes Univer s [...] 00:00: [place] tablet 00 Medical Branch atorvastati 2016 Yes Univer s [...] 00:00: [place] tablet 00 Medical Branch atorvastati 2016 Yes Univer s [...] 00:00: [place] tablet 00 Medical Branch atorvastati 2015- Yes Univer s n (LIPITOR) 1-12 [place] [...] [place] [facility] Branch hydralAZINE 2014-07 Yes 3 (three) U nivers (APRESOLINE 0-26 times ity of ) 50 mg 00:00[place]. [facility] Branch hydralAZINE 2014-07 Yes 3 (three) U nivers (APRESOLINE 0-26 times [place]y of ) 50 mg 00:00: [place] meals. [facility] Branch hydralAZINE 2014-07 Yes 3 (three) U nivers (APRESOLINE 0-26 times [place]y of ) 50 mg 00:00: [place] meals. [facility] Branch hydralAZINE 2014-07 Yes 3 (three) U nivers (APRESOLINE 0-26 times ity of ) 50 mg 00:00[place] [facility] hydralAZINE 2014-07 Yes 3 (three) U nivers (APRESOLINE 0-26 times ity of ) 50 mg 00:00[place]. [facility] hydralAZINE 2014-07 Yes 3 (three) U nivers (APRESOLINE 0-26 times ity of ) 50 mg 00:00: [place]. [facility] hydralAZINE 2014-07 Yes 3 (three) U nivers (APRESOLINE 0-26 times ity of ) 50 mg 00:00: [place]. [facility] hydralAZINE 2014-07 Yes 3 (three) U nivers (APRESOLINE 0-26 times ity of ) 50 mg 00:00: [place] meals. [facility] hydralAZINE 2014-07 Yes 3 (three) U [...] [place] tablet 00 the Medical morning. Branch losartan 2014-07 Yes Univers (COZAAR) 0-10 ity of 100 mg 00:00: [place] tablet 00 Medical Branch amLODIPine 2014-07 Yes 10mg Take 1 Unive rs (NORVASC) 0-10 tablet by ity o f 10 mg 00:00: mouth in [place] tablet 00 the Medical morning. Branch losartan 2014-07 Yes Univers (COZAAR) 0-10 ity of 100 mg 00:00: [place] tablet 00 Medical Branch amLODIPine 2014-07 Yes 10mg Take 1 Unive rs (NORVASC) 0-10 tablet by ity o f 10 mg 00:00: mouth in [place] tablet 00 the Medical morning. Branch losartan 2014-07 Yes [facility] (COZAAR) 0-10 [...] [place] tablet 00 the Medical morning. Branch losartan 2014-07 Yes [facility] (COZAAR) 0-10 ity of 100 mg 00:00: [place] tablet 00 Medical Branch losartan 2014-07 Yes [facility] (COZAAR) 0-10 ity of 100 mg 00:00: [place] tablet 00 Medical Branch amLODIPine 2014-07 Yes 10mg Take 1 Unive rs (NORVASC) 0-10 tablet by ity o f 10 mg 00:00: mouth in [place] tablet 00 the Medical morning. Branch losartan 2014-07 Yes Univers (COZAAR) 0-10 ity of 100 mg 00:00: [place] tablet 00 Medical Branch amLODIPine 2014-07 Yes 10mg Take 1 Unive rs (NORVASC) 0-10 tablet by ity o f 10 mg 00:00: mouth in [place] tablet 00 the Medical morning. Branch losartan 2015-1 Yes Univers (COZAAR) 0-10 ity of 100 mg 00:00: [place] tablet 00 Medical Branch amLODIPine 2014-07 Yes 10mg Take 1 Unive rs (NORVASC) 0-10 tablet by ity o f 10 mg 00:00: mouth in [place] tablet 00 the Medical morning. Branch losartan 2014-07 Yes Univers (COZAAR) 0-10 ity of 100 mg 00:00: [place] tablet 00 Medical Branch amLODIPine 2014-07 Yes 10mg Take 1 Unive rs (NORVASC) 0-10 tablet by ity o f 10 mg 00:00: mouth in [place] tablet 00 the Medical morning. Branch losartan 2014-07 Yes Univers (COZAAR) 0-10 ity of 100 mg 00:00: [place] tablet 00 Medical Branch amLODIPine 2014-07 Yes 10mg Take 1 Unive rs (NORVASC) 0-10 tablet by ity o f 10 mg 00:00: mouth in [place] tablet 00 the Medical morning. Branch losartan 2014-07 Yes Univers (COZAAR) 0-10 ity of 100 mg 00:00: [place] tablet 00 Medical Branch amLODIPine 2014-07 Yes 10mg Take 1 Unive rs (NORVASC) 0-10 tablet by ity o f 10 mg 00:00: mouth in [place] tablet 00 the Medical morning. Branch losartan 2014-07 Yes Univers (COZAAR) 0-10 ity of 100 mg 00:00: [place] tablet 00 Medical Branch amLODIPine 2014-07 Yes 10mg Take 1 Unive rs (NORVASC) 0-10 tablet by ity o f 10 mg 00:00: mouth in [place] tablet 00 the Medical morning. Branch losartan 2014-07 Yes Univers (COZAAR) 0-10 ity of 100 mg 00:00: [place] tablet 00 Medical Branch amLODIPine 2014-07 Yes 10mg Take 1 Unive rs (NORVASC) 0-10 tablet by ity o f 10 mg 00:00: mouth in [place] tablet 00 the Medical morning. Branch losartan 2014-07 Yes Univers (COZAAR) 0-10 ity of 100 mg 00:00: [place] tablet 00 Medical Branch amLODIPine 2014-07 Yes 10mg Take 1 Unive rs (NORVASC) 0-10 tablet by ity o f 10 mg 00:00: mouth in [place] tablet 00 the Medical morning. Branch losartan 2014-07 Yes Univers (COZAAR) 0-10 ity of 100 mg 00:00: [place] tablet 00 Medical Branch amLODIPine 2014-07 Yes 10mg Take 1 Unive rs (NORVASC) 0-10 tablet by ity o f 10 mg 00:00: mouth in [place] tablet 00 the Medical morning. Branch amLODIPine 2014-07 Yes 10mg Take 1 Unive rs (NORVASC) 0-10 tablet by ity o f 10 mg 00:00: mouth in [place] tablet 00 the Medical morning. Branch losartan 2014-07 Yes Univers (COZAAR) 0-10 ity of 100 mg 00:00: [place] tablet 00 Medical Branch losartan 2014-07 Yes Univers (COZAAR) 0-10 ity of 100 mg 00:00: [place] tablet 00 Medical Branch amLODIPine 2014-07 Yes 10mg Take 1 Unive rs (NORVASC) 0-10 tablet by ity o f 10 mg 00:00: mouth in [place] tablet 00 the Medical morning. Branch losartan 2014-07 Yes Univers (COZAAR) 0-10 ity of 100 mg 00:00: [place] tablet 00 Medical Branch amLODIPine 2014-07 Yes 10mg Take 1 Unive rs (NORVASC) 0-10 tablet by ity o f 10 mg 00:00: mouth in [place] tablet 00 the Medical morning. Branch losartan 2014-07 Yes Univers (COZAAR) 0-10 ity of 100 mg 00:00: [place] tablet 00 Medical Branch amLODIPine 2014-07 Yes 10mg Take 1 Unive rs (NORVASC) 0-10 tablet by ity o f 10 mg 00:00: mouth in [place] tablet 00 the Medical morning. Branch losartan 2014-07 Yes Univers (COZAAR) 0-10 ity of 100 mg 00:00: [place] tablet 00 Medical Branch amLODIPine 2014-07 Yes 10mg Take 1 Unive rs (NORVASC) 0-10 tablet by ity o f 10 mg 00:00: mouth in [place] tablet 00 the Medical morning. Branch losartan 2014-07 Yes Univers (COZAAR) 0-10 ity of 100 mg 00:00: [place] tablet 00 Medical Branch amLODIPine 2014-07 Yes 10mg Take 1 Unive rs (NORVASC) 0-10 tablet by ity o f 10 mg 00:00: mouth in [place] tablet 00 the Medical morning. Branch losartan 2014-07 Yes Univers (COZAAR) 0-10 ity of 100 mg 00:00: [place] tablet 00 Medical Branch amLODIPine 2014-07 Yes 10mg Take 1 Unive rs (NORVASC) 0-10 tablet by ity o f 10 mg 00:00: mouth in [place] tablet 00 the Medical morning. Branch losartan 2014-07 Yes Univers (COZAAR) 0-10 ity of 100 mg 00:00: [place] tablet 00 Medical Branch amLODIPine 2014-07 Yes 10mg Take 1 Unive rs (NORVASC) 0-10 tablet by ity o f 10 mg 00:00: mouth in [place] tablet 00 the Medical morning. Branch losartan 2014-07 Yes Univers (COZAAR) 0-10 ity of 100 mg 00:00: [place] tablet 00 Medical Branch amLODIPine 2014-07 Yes 10mg Take 1 Unive rs (NORVASC) 0-10 tablet by ity o f 10 mg 00:00: mouth in [place] tablet 00 the Medical morning. Branch losartan 2014-07 Yes Univers (COZAAR) 0-10 ity of 100 mg 00:00: [place] tablet 00 Medical Branch amLODIPine 2014-07 Yes 10mg Take 1 Unive rs (NORVASC) 0-10 tablet by ity o f 10 mg 00:00: mouth in [place] tablet 00 the Medical morning. Branch losartan 2014-07 Yes Univers (COZAAR) 0-10 ity of 100 mg 00:00: [place] tablet 00 Medical Branch amLODIPine 2014-07 Yes 10mg Take 1 Unive rs (NORVASC) 0-10 tablet by ity o f 10 mg 00:00: mouth in [place] tablet 00 the Medical morning. Branch amLODIPine 2014-07 Yes 10mg Take 1 Unive rs (NORVASC) 0-10 tablet by ity o f 10 mg 00:00: mouth in [place] tablet 00 the Medical morning. Branch losartan 2014-07 Yes Univers (COZAAR) 0-10 ity of 100 mg 00:00: [place] tablet 00 Medical Branch losartan 2014-07 Yes Univers (COZAAR) 0-10 ity of 100 mg 00:00: [place] tablet 00 Medical Branch amLODIPine 2014-07 Yes 10mg Take 1 Unive rs (NORVASC) 0-10 tablet by ity o f 10 mg 00:00: mouth in [place] tablet 00 the Medical morning. Branch losartan 2014-07 Yes Univers (COZAAR) 0-10 ity of 100 mg 00:00: [place] tablet 00 Medical Branch amLODIPine 2014-07 Yes 10mg Take 1 Unive rs (NORVASC) 0-10 tablet by ity o f 10 mg 00:00: mouth in [place] tablet 00 the Medical morning. Branch losartan 2014-07 Yes Univers (COZAAR) 0-10 ity of 100 mg 00:00: [place] tablet 00 Medical Branch amLODIPine 2014-07 Yes 10mg Take 1 Unive rs (NORVASC) 0-10 tablet by ity o f 10 mg 00:00: mouth in [place] tablet 00 the Medical morning. Branch losartan 2014-07 Yes Univers (COZAAR) 0-10 ity of 100 mg 00:00: [place] tablet 00 Medical Branch amLODIPine 2014-07 Yes 10mg Take 1 Unive rs (NORVASC) 0-10 tablet by ity o f 10 mg 00:00: mouth in [place] tablet 00 the Medical morning. Branch losartan 2014-07 Yes Univers (COZAAR) 0-10 ity of 100 mg 00:00: [place] tablet 00 Medical Branch amLODIPine 2014-07 Yes 10mg Take 1 Unive rs (NORVASC) 0-10 tablet by ity o f 10 mg 00:00: mouth in [place] tablet 00 the Medical morning. Branch losartan 2014-07 Yes Univers (COZAAR) 0-10 ity of 100 mg 00:00: [place] tablet 00 Medical Branch amLODIPine 2014-07 Yes 10mg Take 1 Unive rs (NORVASC) 0-10 tablet by ity o f 10 mg 00:00: mouth in [place] tablet 00 the Medical morning. Branch losartan 2014-07 Yes Univers (COZAAR) 0-10 ity of 100 mg 00:00: [place] tablet 00 Medical Branch amLODIPine 2014-07 Yes 10mg Take 1 Unive rs (NORVASC) 0-10 tablet by ity o f 10 mg 00:00: mouth in [place] tablet 00 the Medical morning. Branch losartan 2014-07 Yes Univers (COZAAR) 0-10 ity of 100 mg 00:00: [place] tablet 00 Medical Branch amLODIPine 2014-07 Yes 10mg Take 1 Unive rs (NORVASC) 0-10 tablet by ity o f 10 mg 00:00: mouth in [place] tablet 00 the Medical morning. Branch losartan 2014-07 Yes Univers (COZAAR) 0-10 ity of 100 mg 00:00: [place] tablet 00 Medical Branch amLODIPine 2014-07 Yes 10mg Take 1 Unive rs (NORVASC) 0-10 tablet by ity o f 10 mg 00:00: mouth in [place] tablet 00 the Medical morning. Branch amLODIPine 2014-07 Yes Univers (NORVASC) 0-10 [...] 00:00: [place] tablet 00 Medical Branch hydrochloro 2014-07- No Unive rs thiazide 0-10 06-06 ity of (ESIDRIX) 00:00: 00:00 [place] 25 mg 00 :00 Medical tablet Branch levothyroxi 2014-07 Yes Univer [...] Medical tablet morning. Branch levothyroxi 2014-07 Yes 75ug Take 1 Univ ers ne 0-06 tablet by ity of (SYNTHROID) 00:00: mouth [place] 75 mcg 00 every Medical tablet morning. Branch levothyroxi 2014-07 Yes 75ug Take 1 Univ ers ne 0-06 tablet by ity of (SYNTHROID) 00:00: mouth [place] 75 mcg 00 every Medical tablet morning. Branch levothyroxi 2014-07 Yes 75ug Take 1 Univ ers ne 0-06 tablet by ity of (SYNTHROID) 00:00: mouth [place] 75 mcg 00 every Medical tablet morning. Branch levothyroxi 2014-07 Yes 75ug Take 1 Univ ers ne 0-06 tablet by ity of (SYNTHROID) 00:00: mouth [place] 75 mcg 00 every Medical tablet morning. Branch levothyroxi 2014-07 Yes 75ug Take 1 Univ ers ne 0-06 tablet by ity of (SYNTHROID) 00:00: mouth [place] 75 mcg 00 every Medical tablet morning. Branch levothyroxi 2014-07 Yes 75ug Take 1 Univ ers ne 0-06 tablet by ity of (SYNTHROID) 00:00: mouth [place] 75 mcg 00 every Medical tablet morning. Branch levothyroxi 2014-07 Yes 75ug Take 1 Univ ers ne 0-06 tablet by ity of (SYNTHROID) 00:00: mouth [place] 75 mcg 00 every Medical tablet morning. Branch levothyroxi 2014-07 Yes 75ug Take 1 [...] Medical tablet morning. Branch levothyroxi 2014-07 Yes 75ug Take 1 Univ ers ne 0-06 tablet by ity of (SYNTHROID) 00:00: mouth [place] 75 mcg 00 every Medical tablet morning. Branch levothyroxi 2014-07 Yes 75ug Take 1 Univ ers ne 0-06 tablet by ity of (SYNTHROID) 00:00: mouth [place] 75 mcg 00 every Medical tablet morning. Branch levothyroxi 2014-07 Yes 75ug Take 1 Univ ers ne 0-06 tablet by ity of (SYNTHROID) 00:00: mouth [place] 75 mcg 00 every Medical tablet morning. Branch levothyroxi 2014-07 Yes 75ug Take 1 Univ ers ne 0-06 tablet by ity of (SYNTHROID) 00:00: mouth [place] 75 mcg 00 every Medical tablet morning. Branch levothyroxi 2014-07 Yes 75ug Take 1 Univ ers ne 0-06 tablet by ity of (SYNTHROID) 00:00: mouth [place] 75 mcg 00 every Medical tablet morning. Branch levothyroxi 2014-07 Yes 75ug Take 1 Univ ers ne 0-06 tablet by ity of (SYNTHROID) 00:00: mouth [place] 75 mcg 00 every Medical tablet morning. Branch levothyroxi 2014-07 Yes 75ug Take 1 Univ ers ne 0-06 tablet by ity of (SYNTHROID) 00:00: mouth [place] 75 mcg 00 every Medical tablet morning. Branch levothyroxi 2014-07 Yes 75ug Take 1 Univ ers ne 0-06 tablet by ity of (SYNTHROID) 00:00: mouth [place] 75 mcg 00 every Medical tablet morning. Branch levothyroxi 2014-07 Yes 75ug Take 1 Univ ers ne 0-06 tablet by ity of (SYNTHROID) 00:00: mouth [place] 75 mcg 00 every Medical tablet morning. Branch levothyroxi 2014-07 Yes 75ug Take 1 Univ ers ne 0-06 tablet by ity of (SYNTHROID) 00:00: mouth [place] 75 mcg 00 every Medical tablet morning. Branch levothyroxi 2014-07 Yes 75ug Take 1 Univ ers ne 0-06 tablet by ity of (SYNTHROID) 00:00: mouth [place] 75 mcg 00 every Medical tablet morning. Branch levothyroxi 2014-07 Yes 75ug Take 1 Univ ers ne 0-06 tablet by ity of (SYNTHROID) 00:00: mouth [place] 75 mcg 00 every Medical tablet morning. Branch levothyroxi 2014-07 Yes 75ug Take 1 Univ ers ne 0-06 tablet by ity of (SYNTHROID) 00:00: mouth [place] 75 mcg 00 every Medical tablet morning. Branch levothyroxi 2014-07 Yes 75ug Take 1 Univ ers ne 0-06 tablet by ity of (SYNTHROID) 00:00: mouth [place] 75 mcg 00 every Medical tablet morning. Branch levothyroxi 2014-07 Yes 75ug Take 1 Univ ers ne 0-06 tablet by ity of (SYNTHROID) 00:00: mouth [place] 75 mcg 00 every Medical tablet morning. Branch levothyroxi 2014-07 Yes 75ug Take 1 Univ ers ne 0-06 tablet by ity of (SYNTHROID) 00:00: mouth [place] 75 mcg 00 every Medical tablet morning. Branch levothyroxi 2014-07 Yes 75ug Take 1 Univ ers ne 0-06 tablet by ity of (SYNTHROID) 00:00: mouth [place] 75 mcg 00 every Medical tablet morning. Branch levothyroxi 2014-07 Yes 75ug Take 1 Univ ers ne 0-06 tablet by ity of (SYNTHROID) 00:00: mouth [place] 75 mcg 00 every Medical tablet morning. Branch levothyroxi 2014-07 Yes 75ug Take 1 Univ ers ne 0-06 tablet by ity of (SYNTHROID) 00:00: mouth [place] 75 mcg 00 every Medical tablet morning. Branch levothyroxi 2014-07 Yes 75ug Take 1 Univ ers ne 0-06 tablet by ity of (SYNTHROID) 00:00: mouth [place] 75 mcg 00 every Medical tablet morning. Branch levothyroxi 2014-07 Yes 75ug Take 1 Univ ers ne 0-06 tablet by ity of (SYNTHROID) 00:00: mouth [place] 75 mcg 00 every Medical tablet morning. Branch levothyroxi 2014-07 Yes 75ug Take 1 Univ ers ne 0-06 tablet by ity of (SYNTHROID) 00:00: mouth [place] 75 mcg 00 every Medical tablet morning. Branch levothyroxi 2014-07 Yes 75ug Take 1 Univ ers ne 0-06 tablet by ity of (SYNTHROID) 00:00: mouth [place] 75 mcg 00 every Medical tablet morning. Branch levothyroxi 2014-07 Yes 75ug Take 1 Univ ers ne 0-06 tablet by ity of (SYNTHROID) 00:00: mouth [place] 75 mcg 00 every Medical tablet morning. Branch levothyroxi 2014-07 Yes 75ug Take 1 Univ ers ne 0-06 tablet by ity of (SYNTHROID) 00:00: mouth [place] 75 mcg 00 every Medical tablet morning. Branch levothyroxi 2014-07 Yes 75ug Take 1 Univ ers ne 0-06 tablet by ity of (SYNTHROID) 00:00: mouth [place] 75 mcg 00 every Medical tablet morning. Branch levothyroxi 2014-07 Yes 75ug Take 1 Univ ers ne 0-06 tablet by ity of (SYNTHROID) 00:00: mouth [place] 75 mcg 00 every Medical tablet morning. Branch levothyroxi 2014-07 Yes 75ug Take 1 Univ ers ne 0-06 tablet by ity of (SYNTHROID) 00:00: mouth [place] 75 mcg 00 every Medical tablet morning. Branch levothyroxi 2014-07 Yes 75ug Take 1 Univ ers ne 0-06 tablet by ity of (SYNTHROID) 00:00: mouth [place] 75 mcg 00 every Medical tablet morning. Branch levothyroxi 2014-07 Yes 75ug Take 1 Univ ers ne 0-06 tablet by ity of (SYNTHROID) 00:00: mouth [place] 75 mcg 00 every Medical tablet morning. Branch levothyroxi 2014-07 Yes 75ug Take 1 Univ ers ne 0-06 tablet by ity of (SYNTHROID) 00:00: mouth [place] 75 mcg 00 every Medical tablet morning. Branch FLUoxetine 2015-0 Yes Univers (PROZAC) 40 8-27 ity of mg capsule 00:00: [place] [facility] FLUoxetine 2015-0 Yes Univers (PROZAC) 40 8-27 ity of mg capsule 00:00: [place] [facility] FLUoxetine 2015-0 Yes Univers (PROZAC) 40 8-27 ity of mg capsule 00:00: [place] [facility] FLUoxetine 2015-0 Yes Univers (PROZAC) 40 8-27 ity of mg capsule 00:00: [place] [facility] FLUoxetine 2014-0 Yes Univers (PROZAC) 40 8-27 ity of mg capsule 00:00: [address] FLUoxetine 2014-0 Yes Univers (PROZAC) 40 8-27 ity of mg capsule 00:00: [address] FLUoxetine 2014-0 Yes Univers (PROZAC) 40 8-27 ity of mg capsule 00:00: [address] FLUoxetine 2014-0 Yes Univers (PROZAC) 40 8-27 ity of mg capsule 00:00: [address] FLUoxetine 2014-0 Yes Univers (PROZAC) 40 8-27 ity of mg capsule 00:00: [address] FLUoxetine 2014-0 Yes Univers (PROZAC) 40 8-27 ity of mg capsule 00:00: [address] FLUoxetine 2014-0 Yes Univers (PROZAC) 40 8-27 ity of mg capsule 00:00: [address] FLUoxetine 2014-0 Yes Univers (PROZAC) 40 8-27 ity of mg capsule 00:00: [address] FLUoxetine 2015-0 Yes Univers (PROZAC) 40 8-27 ity of mg capsule 00:00: [address] FLUoxetine 2015-0 Yes Univers (PROZAC) 40 8-27 ity of mg capsule 00:00: [address] FLUoxetine 2014-0 Yes Univers (PROZAC) 40 8-27 ity of mg capsule 00:00: [address] FLUoxetine 2014-0 Yes Univers (PROZAC) 40 8-27 ity of mg capsule 00:00: [address] FLUoxetine 2014-0 Yes Univers (PROZAC) 40 8-27 ity of mg capsule 00:00: [place] [facility] FLUoxetine 2014-0 Yes Univers (PROZAC) 40 8-27 ity of mg capsule 00:00: [place] 00 Medical Branch FLUoxetine 2014-0 Yes 40mg Take 1 Unive rs (PROZAC) 40 8-27 capsule by it y of mg capsule 00:00: mouth [place] 00 the Medical morning. Branch FLUoxetine 0 Yes 40mg Take 1 Unive rs (PROZAC) 40 8-27 capsule by it y of mg capsule 00:00: mouth in [place] 00 the Medical morning. Branch FLUoxetine 0 Yes 40mg Take 1 Unive rs (PROZAC) 40 8-27 capsule by it y of mg capsule 00:00: mouth in [place] 00 the Medical morning. Branch FLUoxetine 2014-0 Yes 40mg Take 1 Unive rs (PROZAC) 40 8-27 capsule by it y of mg capsule 00:00: mouth in [place] 00 the Medical morning. Branch FLUoxetine 0 Yes 40mg Take 1 Unive rs (PROZAC) 40 8-27 capsule by it y of mg capsule 00:00: mouth in [place] 00 the Medical morning. Branch FLUoxetine 0 Yes 40mg Take 1 Unive rs (PROZAC) 40 8-27 capsule by it y of mg capsule 00:00: mouth in [place] 00 the Medical morning. Branch FLUoxetine 0 Yes 40mg Take 1 Unive rs (PROZAC) 40 8-27 capsule by it y of mg capsule 00:00: mouth in [place] 00 the Medical morning. Branch FLUoxetine 0 Yes 40mg Take 1 Unive rs (PROZAC) 40 8-27 capsule by it y of mg capsule 00:00: mouth in [place] 00 the Medical morning. Branch FLUoxetine 0 Yes 40mg Take 1 Unive rs (PROZAC) 40 8-27 capsule by it y of mg capsule 00:00: mouth in [place] 00 the Medical morning. Branch FLUoxetine 2014-0 Yes [facility] (PROZAC) 40 8-27 ity of mg capsule 00:00: [place] 00 Medical Branch FLUoxetine 2015-0 Yes [facility] (PROZAC) 40 8-27 ity of mg capsule 00:00: [place] 00 Medical Branch FLUoxetine 2015-0 Yes [facility] (PROZAC) 40 8-27 ity of mg capsule 00:00: [place] 00 Medical Branch FLUoxetine 2015-0 Yes [facility] (PROZAC) 40 8-27 ity of mg capsule 00:00: [place] 00 Medical Branch FLUoxetine 2015-0 Yes [facility] (PROZAC) 40 8-27 ity of mg capsule 00:00: [place] 00 Medical Branch FLUoxetine 2015-0 Yes 40mg Take 1 Unive rs (PROZAC) 40 8-27 capsule by it y of mg capsule 00:00: mouth in [place] 00 the Medical morning. Branch FLUoxetine 2015-0 Yes 40mg Take 1 Unive rs (PROZAC) 40 8-27 capsule by it y of mg capsule 00:00: mouth in [place] 00 the Medical morning. Branch FLUoxetine 2015-0 Yes 40mg Take 1 Unive rs (PROZAC) 40 8-27 capsule by it y of mg capsule 00:00: mouth in [place] 00 the Medical morning. Branch FLUoxetine 2014-0 Yes 40mg Take 1 Unive rs (PROZAC) 40 8-27 capsule by it y of mg capsule 00:00: mouth in [place] 00 the Medical morning. Branch FLUoxetine 2014-0 Yes 40mg Take 1 Unive rs (PROZAC) 40 8-27 capsule by it y of mg capsule 00:00: mouth in [place] 00 the Medical morning. Branch FLUoxetine 2014-0 Yes 40mg Take 1 Unive rs (PROZAC) 40 8-27 capsule by it y of mg capsule 00:00: mouth in [place] 00 the Medical morning. Branch FLUoxetine 2014-0 Yes 40mg Take 1 Unive rs (PROZAC) 40 8-27 capsule by it y of mg capsule 00:00: mouth in [place] 00 the Medical morning. Branch FLUoxetine 2014-0 Yes 40mg Take 1 Unive rs (PROZAC) 40 8-27 capsule by it y of mg capsule 00:00: mouth in [place] 00 the Medical morning. Branch FLUoxetine 2015-0 Yes 40mg Take 1 Unive rs (PROZAC) 40 8-27 capsule by it y of mg capsule 00:00: mouth in [place] 00 the Medical morning. Branch FLUoxetine 2015-0 Yes 40mg Take 1 Unive rs (PROZAC) 40 8-27 capsule by it y of mg capsule 00:00: mouth in [place] 00 the Medical morning. Branch FLUoxetine 2015-0 Yes 40mg Take 1 Unive rs (PROZAC) 40 8-27 capsule by it y of mg capsule 00:00: mouth in [place] 00 the Medical morning. Branch FLUoxetine 2015-0 Yes 40mg Take 1 Unive rs (PROZAC) 40 8-27 capsule by it y of mg capsule 00:00: mouth in [place] 00 the Medical morning. Branch FLUoxetine 2015-0 Yes 40mg Take 1 Unive rs (PROZAC) 40 8-27 capsule by it y of mg capsule 00:00: mouth in [place] 00 the Medical morning. Branch FLUoxetine 2015-0 Yes 40mg Take 1 Unive rs (PROZAC) 40 8-27 capsule by it y of mg capsule 00:00: mouth in [place] 00 the Medical morning. Branch FLUoxetine 2015-0 Yes 40mg Take 1 Unive rs (PROZAC) 40 8-27 capsule by it y of mg capsule 00:00: mouth in [place] 00 the Medical morning. Branch FLUoxetine 2015-0 Yes 40mg Take 1 Unive rs (PROZAC) 40 8-27 capsule by it y of mg capsule 00:00: mouth in [place] 00 the Medical morning. Branch FLUoxetine 2015-0 Yes 40mg Take 1 Unive rs (PROZAC) 40 8-27 capsule by it y of mg capsule 00:00: mouth in [place] 00 the Medical morning. Branch FLUoxetine 2015-0 Yes 40mg Take 1 Unive rs (PROZAC) 40 8-27 capsule by it y of mg capsule 00:00: mouth in [place] 00 the Medical morning. Branch FLUoxetine 2015-0 Yes 40mg Take 1 Unive rs (PROZAC) 40 8-27 capsule by it y of mg capsule 00:00: mouth in [place] 00 the Medical morning. Branch FLUoxetine 2015-0 Yes 40mg Take 1 Unive rs (PROZAC) 40 8-27 capsule by it y of mg capsule 00:00: mouth in [place] 00 the Medical morning. Branch FLUoxetine 2015-0 Yes 40mg Take 1 Unive rs (PROZAC) 40 8-27 capsule by it y of mg capsule 00:00: mouth in [place] 00 the Medical morning. Branch FLUoxetine 2015-0 Yes 40mg Take 1 Unive rs (PROZAC) 40 8-27 capsule by it y of mg capsule 00:00: mouth in [place] 00 the Medical morning. Branch FLUoxetine 2015-0 Yes 40mg Take 1 Unive rs (PROZAC) 40 8-27 capsule by it y of mg capsule 00:00: mouth in [place] 00 the Medical morning. Branch FLUoxetine 0 Yes 40mg Take 1 Unive rs (PROZAC) 40 8-27 capsule by it y of mg capsule 00:00: mouth in [place] 00 the Medical morning. Branch FLUoxetine 0 Yes 40mg Take 1 Unive rs (PROZAC) 40 8-27 capsule by it y of mg capsule 00:00: mouth in [place] 00 the Medical morning. Branch FLUoxetine 0 Yes 40mg Take 1 Unive rs (PROZAC) 40 8-27 capsule by it y of mg capsule 00:00: mouth in [place] 00 the Medical morning. Branch FLUoxetine 0 Yes 40mg Take 1 Unive rs (PROZAC) 40 8-27 capsule by it y of mg capsule 00:00: mouth in [place] 00 the Medical morning. Branch FLUoxetine 0 Yes 40mg Take 1 Unive rs (PROZAC) 40 8-27 capsule by it y of mg capsule 00:00: mouth in [place] 00 the Medical morning. Branch FLUoxetine 0 Yes 40mg Take 1 Unive rs (PROZAC) 40 8-27 capsule by it y of mg capsule 00:00: mouth in [place] 00 the Medical morning. Branch FLUoxetine 0 Yes 40mg Take 1 Unive rs (PROZAC) 40 8-27 capsule by it y of mg capsule 00:00: mouth in [place] 00 the Medical morning. Branch FLUoxetine 0 Yes 40mg Take 1 Unive rs (PROZAC) 40 8-27 capsule by it y of mg capsule 00:00: mouth in [place] 00 the Medical morning. Branch FLUoxetine 0 Yes 40mg Take 1 Unive rs (PROZAC) 40 8-27 capsule by it y of mg capsule 00:00: mouth in [place] 00 the Medical morning. Branch Immunizations Ordered Filled Date Status Comments Source Immunization Name Immunization Name SARS-COV-2 COVID-19 2022-03-25 Completed Unive rsity of VACCINE, BIVALENT 00:00:00 [facility] joseical (MODERNA BOOSTER) Branch SARS-COV-2 COVID-19 2022-03-25 Completed Unive rsity of VACCINE, BIVALENT 00:00:00 [facility] edical (MODERNA BOOSTER) Branch SARS-COV-2 COVID-19 2022-03-25 Completed Unive rsity of VACCINE, BIVALENT 00:00:00 [place] [facility] ed[facility] (MODERNA BOOSTER) Branch SARS-COV-2 COVID-19 2022-03-25 Completed Unive rsity of VACCINE, BIVALENT 00:00:00 [place] [facility] edical (MODERNA BOOSTER) Branch SARS-COV-2 COVID-19 2022-03-25 Completed Unive rsity of VACCINE, BIVALENT 00:00:00 [place] [facility] edical (MODERNA BOOSTER) Branch SARS-COV-2 COVID-19 2022-03-25 Completed Unive rsity of VACCINE, BIVALENT 00:00:00 [place] M edical (MODERNA BOOSTER) Branch SARS-COV-2 COVID-19 2022-03-25 Completed Unive rsity of VACCINE, BIVALENT 00:00:00 [place] M edical (MODERNA BOOSTER) Branch SARS-COV-2 COVID-19 2022-03-25 Completed [facility] VACCINE, BIVALENT 00:00:00 [facility] (MODERNA BOOST[facility]) [facility] SARS-COV-2 COVID-19 2022-03-25 Completed [facility] VACCINE, BIVALENT 00:00:00 [facility] (MODERNA BOOSTER) [facility] SARS-COV-2 COVID-19 2022-03-25 Completed [facility] VACCINE, BIVALENT 00:00:00 [facility] (MODERNA BOOSTER) [facility] SARS-COV-2 COVID-19 2022-03-25 Completed [facility] of VACCINE, BIVALENT 00:00:00 [facility] (MODERNA BOOSTER) [facility] SARS-COV-2 COVID-19 2022-03-25 Completed [facility] VACCINE, BIVALENT 00:00:00 [facility] (MODERNA BOOSTER) [facility] SARS-COV-2 COVID-19 2022-03-25 Completed [facility] VACCINE, BIVALENT 00:00:00 [facility] (MODERNA BOOSTER) [facility] SARS-COV-2 COVID-19 2022-03-25 Completed [facility] VACCINE, BIVALENT 00:00:00 [facility] (MODERNA BOOSTER) [facility] SARS-COV-2 COVID-19 2022-03-25 Completed [facility] VACCINE, BIVALENT 00:00:00 [facility] (MODERNA BOOSTER) [facility] SARS-COV-2 COVID-19 2022-03-25 Completed [facility] VACCINE, BIVALENT 00:00:00 [place] [facility] (MODERNA BOOSTER) [facility] SARS-COV-2 COVID-19 2022-03-25 Completed [facility] VACCINE, BIVALENT 00:00:00 [facility] (MODERNA BOOSTER) [facility] SARS-COV-2 COVID-19 2022-03-25 Completed [facility] VACCINE, BIVALENT 00:00:00 [facility] (MODERNA BOOSTER) [facility] SARS-COV-2 COVID-19 2022-03-25 Completed [facility] VACCINE, BIVALENT 00:00:00 [facility] (MODERNA BOOSTER) [facility] SARS-COV-2 COVID-19 2022-03-25 Completed [facility] VACCINE, BIVALENT 00:00:00 [facility] (MODERNA BOOSTER) [facility] SARS-COV-2 COVID-19 2022-03-25 Completed [facility] VACCINE, BIVALENT 00:00:00 [facility] (MODERNA BOOSTER) [facility] SARS-COV-2 COVID-19 2022-03-25 Completed [facility] VACCINE, BIVALENT 00:00:00 [facility] (MODERNA BOOSTER) [facility] SARS-COV-2 COVID-19 2022-03-25 Completed [facility] VACCINE, BIVALENT 00:00:00 [facility] (MODERNA BOOSTER) [facility] SARS-COV-2 COVID-19 2022-03-25 Completed [facility] VACCINE, BIVALENT 00:00:00 [facility] (MODERNA BOOSTER) [facility] SARS-COV-2 COVID-19 2022-03-25 Completed [facility] of VACCINE, BIVALENT 00:00:00 [facility] (MODERNA BOOSTER) [facility] SARS-COV-2 COVID-19 2022-03-25 Completed [facility] of VACCINE, BIVALENT 00:00:00 [facility] (MODERNA BOOSTER) [facility] SARS-COV-2 COVID-19 2022-03-25 Completed [facility] VACCINE, BIVALENT 00:00:00 [facility] (MODERNA BOOSTER) [facility] SARS-COV-2 COVID-19 2022-03-25 Completed [facility] VACCINE, BIVALENT 00:00:00 [facility] (MODERNA BOOSTER) [facility] SARS-COV-2 COVID-19 2022-03-25 Completed [facility] of VACCINE, BIVALENT 00:00:00 [facility] ed[facility] (MODERNA BOOSTER) Branch SARS-COV-2 COVID-19 2022-03-25 Completed [facility] of VACCINE, BIVALENT 00:00:00 [facility] edical (MODERNA BOOSTER) Branch SARS-COV-2 COVID-19 2022-03-25 Completed [facility] of VACCINE, BIVALENT 00:00:00 [facility] edical (MODERNA BOOSTER) Branch SARS-COV-2 COVID-19 2022-03-25 Completed [facility] of VACCINE, BIVALENT 00:00:00 [facility] edical (MODERNA BOOSTER) Branch SARS-COV-2 COVID-19 2022-03-25 Completed [facility] of VACCINE, BIVALENT 00:00:00 [facility] edical (MODERNA BOOSTER) Branch SARS-COV-2 COVID-19 2022-03-25 Completed [facility] of VACCINE, BIVALENT 00:00:00 [facility] edical (MODERNA BOOSTER) Branch SARS-COV-2 COVID-19 2022-03-25 Completed [facility] of VACCINE, BIVALENT 00:00:00 [facility] edical (MODERNA BOOSTER) Branch SARS-COV-2 COVID-19 2021-05-18 Completed [facility] of VACCINE - (MODERNA) 00:00:[address] [facility] SARS-COV-2 COVID-19 2021-05-18 Completed [facility] of VACCINE - (MODERNA) 00:00:[address] [facility] SARS-COV-2 COVID-19 2021-05-18 Completed [facility] of VACCINE - (MODERNA) 00:00:00 [facility] SARS-COV-2 COVID-19 2021-05-18 Completed [facility] of VACCINE - (MODERNA) 00:00:[address] [facility] SARS-COV-2 COVID-19 2021-05-18 Completed [facility] of VACCINE - (MODERNA) 00:00:[address] [facility] SARS-COV-2 COVID-19 2021-05-18 Completed [facility] of VACCINE - (MODERNA) 00:00:[address] [facility] SARS-COV-2 COVID-19 2021-05-18 Completed [facility] of VACCINE - (MODERNA) 00:00:[address] [facility] SARS-COV-2 COVID-19 2021-05-18 Completed [facility] of VACCINE - (MODERNA) 00:00:00 [facility] SARS-COV-2 COVID-19 2021-05-18 Completed [facility] of VACCINE - (MODERNA) 00:00:[address] [facility] SARS-COV-2 COVID-19 2021-05-18 Completed [facility] of VACCINE - (MODERNA) 00:00:00 [facility] SARS-COV-2 COVID-19 2021-05-18 Completed [facility] of VACCINE - (MODERNA) 00:00:[address] [facility] SARS-COV-2 COVID-19 2021-05-18 Completed [facility] of VACCINE - (MODERNA) 00:00:[address] [facility] SARS-COV-2 COVID-19 2021-05-18 Completed [facility] of VACCINE - (MODERNA) 00:00:[address] [facility] SARS-COV-2 COVID-19 2021-05-18 Completed [facility] of VACCINE - (MODERNA) 00:00:[address] [facility] SARS-COV-2 COVID-19 2021-05-18 Completed [facility] of VACCINE - (MODERNA) 00:00:00 [facility] SARS-COV-2 COVID-19 2021-05-18 Completed [facility] of VACCINE - (MODERNA) 00:00:[address] [facility] SARS-COV-2 COVID-19 2021-05-18 Completed [facility] of VACCINE - (MODERNA) 00:00:00 [facility] SARS-COV-2 COVID-19 2021-05-18 Completed [facility] of VACCINE - (MODERNA) 00:00:[address] [facility] SARS-COV-2 COVID-19 2021-05-18 Completed [facility] of VACCINE - (MODERNA) 00:00:00 [facility] SARS-COV-2 COVID-19 2021-05-18 Completed [facility] of VACCINE - (MODERNA) 00:00:[address] [facility] SARS-COV-2 COVID-19 2021-05-18 Completed [facility] of VACCINE - (MODERNA) 00:00:[address] [facility] SARS-COV-2 COVID-19 2021-05-18 Completed [facility] of VACCINE - (MODERNA) 00:00:[address] [facility] SARS-COV-2 COVID-19 2021-05-18 Completed [facility] of VACCINE - (MODERNA) 00:00:[address] [facility] SARS-COV-2 COVID-19 2021-05-18 Completed [facility] of VACCINE - (MODERNA) 00:00:[address] [facility] SARS-COV-2 COVID-19 2021-05-18 Completed [facility] of VACCINE - (MODERNA) 00:00:[address] [facility] SARS-COV-2 COVID-19 2021-05-18 Completed [facility] of VACCINE - (MODERNA) 00:00:[address] [facility] SARS-COV-2 COVID-19 2021-05-18 Completed [facility] of VACCINE - (MODERNA) 00:00:[address] [facility] SARS-COV-2 COVID-19 2021-05-18 Completed [facility] of VACCINE - (MODERNA) 00:00:[address] [facility] SARS-COV-2 COVID-19 2021-05-18 Completed [facility] of VACCINE - (MODERNA) 00:00:[address] [facility] SARS-COV-2 COVID-19 2021-05-18 Completed [facility] of VACCINE - (MODERNA) 00:00:[address] [facility] SARS-COV-2 COVID-19 2021-05-18 Completed [facility] of VACCINE - (MODERNA) 00:00:[address] [facility] SARS-COV-2 COVID-19 2021-05-18 Completed [facility] of VACCINE - (MODERNA) 00:00:[address] [facility] SARS-COV-2 COVID-19 2021-05-18 Completed [facility] of VACCINE - (MODERNA) 00:00:[address] [facility] SARS-COV-2 COVID-19 2021-05-18 Completed [facility] of VACCINE - (MODERNA) 00:00:[address] [facility] SARS-COV-2 COVID-19 2021-05-18 Completed [facility] of VACCINE - (MODERNA) 00:00:[address] [facility] Influenza High Dose 2021-04-22 Completed [facility] 00:00:00 [facility] Influenza High Dose 2021-04-22 Completed [facility] 00[facility]00:00 [facility] Influenza High Dose 2021-04-22 Completed [facility] 00:00:00 [facility] Influenza High Dose 2021-04-22 Completed [facility] 00:00:00 [facility] Influenza High Dose 2021-04-22 Completed [facility] of 00:00:00 [facility] Influenza High Dose 2021-04-22 Completed [facility] 00:00:00 [facility] Influenza High Dose 2021-04-22 Completed [facility] 00:00:00 [facility] Influenza High Dose 2021-04-22 Completed [facility] 00:00:00 [facility] Influenza High Dose 2021-04-22 Completed [facility] of 00:00:00 [facility] Influenza High Dose 2021-04-22 Completed [facility] 00:00:00 [facility] Influenza High Dose 2021-04-22 Completed [facility] of 00:00:00 [facility] Influenza High Dose 2021-04-22 Completed [facility] 00:00:00 [facility] Influenza High Dose 2021-04-22 Completed [facility] of 00:00:00 [facility] Influenza High Dose 2021-04-22 Completed [facility] 00:00:00 [facility] Influenza High Dose 2021-04-22 Completed [facility] of 00:00:00 [facility] Influenza High Dose 2021-04-22 Completed [facility] 00:00:00 [facility] Influenza High Dose 2021-04-22 Completed [facility] of 00:00:00 [facility] Influenza High Dose 2021-04-22 Completed [facility] 00:00:00 [facility] Influenza High Dose 2021-04-22 Completed [facility] of 00:00:00 [facility] Influenza High Dose 2021-04-22 Completed [facility] 00:00:00 [facility] Influenza High Dose 2021-04-22 Completed [facility] of 00:00:00 [facility] Influenza High Dose 2021-04-22 Completed [facility] 00:00:00 [facility] Influenza High Dose 2021-04-22 Completed [facility] of 00:00:00 [facility] Influenza High Dose 2021-04-22 Completed [facility] 00:00:00 [facility] Influenza High Dose 2021-04-22 Completed [facility] of 00:00:00 [facility] Influenza High Dose 2021-04-22 Completed [facility] 00:00:00 [facility] Influenza High Dose 2021-04-22 Completed [facility] of 00:00:00 [facility] Influenza High Dose 2021-04-22 Completed [facility] 00:00:00 [facility] Influenza High Dose 2021-04-22 Completed [facility] of 00:00:00 [facility] Influenza High Dose 2021-04-22 Completed [facility] 00:00:00 [facility] Influenza High Dose 2021-04-22 Completed [facility] of 00:00:00 [facility] Influenza High Dose 2021-04-22 Completed [facility] 00:00:00 [facility] Influenza High Dose 2021-04-22 Completed [facility] of 00:00:00 [facility] Influenza High Dose 2021-04-22 Completed [facility] 00:00:00 [facility] Influenza High Dose 2021-04-22 Completed [facility] of 00:00:00 [facility] Influenza High Dose 2021-04-22 Completed [facility] 00:00:00 [facility] Influenza High Dose 2021-04-22 Completed [facility] of 00:00:00 [facility] Influenza High Dose 2021-04-22 Completed [facility] 00:00:00 [facility] Influenza High Dose 2021-04-22 Completed [facility] of 00:00:00 [facility] Influenza High Dose 2021-04-22 Completed [facility] 00:00:00 [facility] Influenza High Dose 2021-04-22 Completed [facility] of 00:00:00 [facility] Influenza High Dose 2021-04-22 Completed [facility] 00:00:00 [facility] Influenza High Dose 2021-04-22 Completed [facility] of 00:00:00 [facility] Influenza High Dose 2021-04-22 Completed [facility] 00:00:00 [facility] Influenza High Dose 2021-04-22 Completed [facility] of 00:00:00 [facility] Influenza High Dose 2021-04-22 Completed [facility] of 00:00:00 [facility] Influenza High Dose 2021-04-22 Completed [facility] 00:00:00 [facility] Influenza High Dose 2021-04-22 Completed [facility] 00:00:00 [facility] Influenza High Dose 2021-04-22 Completed [facility] of 00:00:00 [facility] Influenza High Dose 2021-04-22 Completed [facility] 00:00:00 [facility] Influenza High Dose 2021-04-22 Completed [facility] of 00:00:00 [facility] Influenza High Dose 2021-04-22 Completed [facility] 00:00:00 [facility] Influenza High Dose 2021-04-22 Completed [facility] of 00:00:00 [facility] Influenza High Dose 2021-04-22 Completed [facility] 00:00:00 [facility] Influenza High Dose 2021-04-22 Completed [facility] of 00:00:00 [facility] Influenza High Dose 2021-04-22 Completed [facility] 00:00:00 [facility] Influenza High Dose 2021-04-22 Completed [facility] of 00:00:00 [facility] Influenza High Dose 2021-04-22 Completed [facility] 00:00:00 [facility] Influenza High Dose 2021-04-22 Completed [facility] of 00:00:00 [facility] Influenza High Dose 2021-04-22 Completed [facility] 00:00:00 [facility] Influenza High Dose 2021-04-22 Completed [facility] of 00:00:00 [facility] Influenza High Dose 2021-04-22 Completed [facility] 00:00:00 [facility] Influenza High Dose 2021-04-22 Completed [facility] of 00:00:00 [facility] Influenza High Dose 2021-04-22 Completed [facility] 00:00:00 [facility] Influenza High Dose 2021-04-22 Completed [facility] of 00:00:[address] [facility] Influenza High Dose 2021-04-22 Completed Unive [facility] of 00:00:[address] [facility] Influenza High Dose 2021-04-22 Completed [facility] 00:00:[address] [facility] Influenza High Dose 2021-04-22 Completed [facility] 00:00:[address] [facility] Influenza High Dose 2021-04-22 Completed [facility] of 00:00:[address] [facility] Influenza High Dose 2021-04-22 Completed [facility] 00:00:[address] [facility] SARS-COV-2 COVID-19 2020-09-02 Completed [facility] of VACCINE - (MODERNA) 00:00:[address] [facility] SARS-COV-2 COVID-19 2020-09-02 Completed [facility] of VACCINE - (MODERNA) 00:00:[address] [facility] SARS-COV-2 COVID-19 2020-09-02 Completed [facility] of VACCINE - (MODERNA) 00:00:[address] [facility] SARS-COV-2 COVID-19 2020-09-02 Completed [facility] of VACCINE - (MODERNA) 00:00:[address] [facility] SARS-COV-2 COVID-19 2020-09-02 Completed [facility] of VACCINE - (MODERNA) 00:00:[address] [facility] SARS-COV-2 COVID-19 2020-09-02 Completed [facility] of VACCINE - (MODERNA) 00:00:[address] [facility] SARS-COV-2 COVID-19 2020-09-02 Completed [facility] of VACCINE - (MODERNA) 00:00:[address] [facility] SARS-COV-2 COVID-19 2020-09-02 Completed [facility] of VACCINE - (MODERNA) 00:00:[address] [facility] SARS-COV-2 COVID-19 2020-09-02 Completed [facility] of VACCINE - (MODERNA) 00:00:[address] [facility] SARS-COV-2 COVID-19 2020-09-02 Completed [facility] of VACCINE - (MODERNA) 00:00:[address] [facility] SARS-COV-2 COVID-19 2020-09-02 Completed [facility] of VACCINE - (MODERNA) 00:00:[address] [facility] SARS-COV-2 COVID-19 2020-09-02 Completed [facility] of VACCINE - (MODERNA) 00:00:00 [facility] SARS-COV-2 COVID-19 2020-09-02 Completed [facility] of VACCINE - (MODERNA) 00:00:00 [facility] SARS-COV-2 COVID-19 2020-09-02 Completed [facility] of VACCINE - (MODERNA) 00:00:00 [facility] SARS-COV-2 COVID-19 2020-09-02 Completed [facility] of VACCINE - (MODERNA) 00:00:[address] [facility] SARS-COV-2 COVID-19 2020-09-02 Completed [facility] of VACCINE - (MODERNA) 00:00:[address] [facility] SARS-COV-2 COVID-19 2020-09-02 Completed [facility] of VACCINE - (MODERNA) 00:00:00 [facility] SARS-COV-2 COVID-19 2020-09-02 Completed [facility] of VACCINE - (MODERNA) 00:00:[address] [facility] SARS-COV-2 COVID-19 2020-09-02 Completed [facility] of VACCINE - (MODERNA) 00:00:[address] [facility] SARS-COV-2 COVID-19 2020-09-02 Completed [facility] of VACCINE - (MODERNA) 00:00:00 [facility] SARS-COV-2 COVID-19 2020-09-02 Completed [facility] of VACCINE - (MODERNA) 00:00:00 [facility] SARS-COV-2 COVID-19 2020-09-02 Completed [facility] of VACCINE - (MODERNA) 00:00:[address] [facility] SARS-COV-2 COVID-19 2020-09-02 Completed [facility] of VACCINE - (MODERNA) 00:00:00 [facility] SARS-COV-2 COVID-19 2020-09-02 Completed [facility] of VACCINE - (MODERNA) 00:00:[address] [facility] SARS-COV-2 COVID-19 2020-09-02 Completed [facility] of VACCINE - (MODERNA) 00:00:[address] [facility] SARS-COV-2 COVID-19 2020-09-02 Completed [facility] of VACCINE - (MODERNA) 00:00:00 [facility] SARS-COV-2 COVID-19 2020-09-02 Completed [facility] of VACCINE - (MODERNA) 00:00:[address] [facility] SARS-COV-2 COVID-19 2020-09-02 Completed [facility] of VACCINE - (MODERNA) 00:00:00 [facility] SARS-COV-2 COVID-19 2020-09-02 Completed [facility] of VACCINE - (MODERNA) 00:00:[address] [facility] SARS-COV-2 COVID-19 2020-09-02 Completed [facility] of VACCINE - (MODERNA) 00:00:00 [facility] SARS-COV-2 COVID-19 2020-09-02 Completed [facility] of VACCINE - (MODERNA) 00:00:[address] [facility] SARS-COV-2 COVID-19 2020-09-02 Completed [facility] of VACCINE - (MODERNA) 00:00:[address] [facility] SARS-COV-2 COVID-19 2020-09-02 Completed [facility] of VACCINE - (MODERNA) 00:00:00 [facility] SARS-COV-2 COVID-19 2020-09-02 Completed [facility] of VACCINE - (MODERNA) 00:00:[address] [facility] SARS-COV-2 COVID-19 2020-09-02 Completed [facility] of VACCINE - (MODERNA) 00:00:00 [facility] SARS-COV-2 COVID-19 2020-08-05 Completed [facility] of VACCINE - (MODERNA) 00:00:00 [facility] SARS-COV-2 COVID-19 2020-08-05 Completed [facility] of VACCINE - (MODERNA) 00:00:00 [facility] SARS-COV-2 COVID-19 2020-08-05 Completed [facility] of VACCINE - (MODERNA) 00:00:[address] [facility] SARS-COV-2 COVID-19 2020-08-05 Completed [facility] of VACCINE - (MODERNA) 00:00:00 [facility] SARS-COV-2 COVID-19 2020-08-05 Completed [facility] of VACCINE - (MODERNA) 00:00:[address] [facility] SARS-COV-2 COVID-19 2020-08-05 Completed [facility] of VACCINE - (MODERNA) 00:00:[address] [facility] SARS-COV-2 COVID-19 2020-08-05 Completed [facility] of VACCINE - (MODERNA) 00:00:00 [facility] SARS-COV-2 COVID-19 2020-08-05 Completed [facility] of VACCINE - (MODERNA) 00:00:[address] [facility] SARS-COV-2 COVID-19 2020-08-05 Completed [facility] of VACCINE - (MODERNA) 00:00:[address] [facility] SARS-COV-2 COVID-19 2020-08-05 Completed [facility] of VACCINE - (MODERNA) 00:00:[address] [facility] SARS-COV-2 COVID-19 2020-08-05 Completed [facility] of VACCINE - (MODERNA) 00:00:[address] [facility] SARS-COV-2 COVID-19 2020-08-05 Completed [facility] of VACCINE - (MODERNA) 00:00:[address] [facility] SARS-COV-2 COVID-19 2020-08-05 Completed [facility] of VACCINE - (MODERNA) 00:00:[address] [facility] SARS-COV-2 COVID-19 2020-08-05 Completed [facility] of VACCINE - (MODERNA) 00:00:00 [facility] SARS-COV-2 COVID-19 2020-08-05 Completed [facility] of VACCINE - (MODERNA) 00:00:[address] [facility] SARS-COV-2 COVID-19 2020-08-05 Completed [facility] of VACCINE - (MODERNA) 00:00:00 [facility] SARS-COV-2 COVID-19 2020-08-05 Completed [facility] of VACCINE - (MODERNA) 00:00:[address] [facility] SARS-COV-2 COVID-19 2020-08-05 Completed [facility] of VACCINE - (MODERNA) 00:00:00 [facility] SARS-COV-2 COVID-19 2020-08-05 Completed [facility] of VACCINE - (MODERNA) 00:00:[address] [facility] SARS-COV-2 COVID-19 2020-08-05 Completed [facility] of VACCINE - (MODERNA) 00:00:00 [facility] SARS-COV-2 COVID-19 2020-08-05 Completed [facility] of VACCINE - (MODERNA) 00:00:00 [facility] SARS-COV-2 COVID-19 2020-08-05 Completed [facility] of VACCINE - (MODERNA) 00:00:00 [facility] SARS-COV-2 COVID-19 2020-08-05 Completed [facility] of VACCINE - (MODERNA) 00:00:[address] [facility] SARS-COV-2 COVID-19 2020-08-05 Completed [facility] of VACCINE - (MODERNA) 00:00:[address] [facility] SARS-COV-2 COVID-19 2020-08-05 Completed [facility] of VACCINE - (MODERNA) 00:00:[address] [facility] SARS-COV-2 COVID-19 2020-08-05 Completed [facility] of VACCINE - (MODERNA) 00:00:[address] [facility] SARS-COV-2 COVID-19 2020-08-05 Completed [facility] of VACCINE - (MODERNA) 00:00:[address] [facility] SARS-COV-2 COVID-19 2020-08-05 Completed [facility] of VACCINE - (MODERNA) 00:00:[address] [facility] SARS-COV-2 COVID-19 2020-08-05 Completed [facility] of VACCINE - (MODERNA) 00:00:00 [facility] SARS-COV-2 COVID-19 2020-08-05 Completed [facility] of VACCINE - (MODERNA) 00:00:[address] [facility] SARS-COV-2 COVID-19 2020-08-05 Completed [facility] of VACCINE - (MODERNA) 00:00:[address] [facility] SARS-COV-2 COVID-19 2020-08-05 Completed [facility] of VACCINE - (MODERNA) 00:00:[address] [facility] SARS-COV-2 COVID-19 2020-08-05 Completed [facility] of VACCINE - (MODERNA) 00:00:[address] [facility] SARS-COV-2 COVID-19 2020-08-05 Completed [facility] of VACCINE - (MODERNA) 00:00:[address] [facility] SARS-COV-2 COVID-19 2020-08-05 Completed [facility] of VACCINE - (MODERNA) 00:00:[address] [facility] Influenza High Dose 2020-03-03 Completed [facility]ive [facility]ity of 00:00:[address] [facility] Influenza High Dose 2020-03-03 Completed [facility] of 00:00:[address] [facility] Influenza High Dose 2020-03-03 Completed [facility] of 00:00:[address] [facility] Influenza High Dose 2020-03-03 Completed [facility] of 00:00:[address] [facility] Influenza High Dose 2020-03-03 Completed [facility] of 00:00:[address] [facility] Influenza High Dose 2020-03-03 Completed [facility] of 00:00:[address] [facility] Influenza High Dose 2020-03-03 Completed [facility] of 00:00:[address] [facility] Influenza High Dose 2020-03-03 Completed [facility] 00[facility]00:[address] [facility] [facility] Influenza High Dose 2020-03-03 Completed [facility] of 00:00:[address] [facility] Influenza High Dose 2020-03-03 Completed [facility] of 00:00:[address] [facility] Influenza High Dose 2020-03-03 Completed [facility] of 00:00:[address] [facility] Influenza High Dose 2020-03-03 Completed [facility] of 00:00:[address] [facility] Influenza High Dose 2020-03-03 Completed [facility] of 00:00:[address] [facility] Influenza High Dose 2020-03-03 Completed [facility] of 00:00:[address] [facility] Influenza High Dose 2020-03-03 Completed [facility] of 00:00:[address] [facility] Influenza High Dose 2020-03-03 Completed [facility] of 00:00:[address] [facility] Influenza High Dose 2020-03-03 Completed [facility] of 00:00:[address] [facility] Influenza High Dose 2020-03-03 Completed [facility] of 00:00:[address] [facility] Influenza High Dose 2020-03-03 Completed [facility] of 00:00:[address] [facility] Influenza High Dose 2020-03-03 Completed [facility] rs[facility] of 00:00:[address] [facility] Influenza High Dose 2020-03-03 Completed [facility] rs[facility] of 00:00:[address] [facility] Influenza High Dose 2020-03-03 Completed [facility] rsity of 00:00:[address] [facility] Influenza High Dose 2020-03-03 Completed [facility] rsity of 00:00:[address] [facility] Influenza High Dose 2020-03-03 Completed [facility] rs[facility] of 00:00:[address] [facility] Influenza High Dose 2020-03-03 Completed [facility] rs[facility] of 00:00:[address] [facility] Influenza High Dose 2020-03-03 Completed [facility] rs[facility] of 00:00:[address] [facility] Influenza High Dose 2020-03-03 Completed [facility] rs[facility] of 00:00:[address] [facility] Influenza High Dose 2020-03-03 Completed [facility] rs[facility] of 00:00:[address] [facility] Influenza High Dose 2020-03-03 Completed [facility] rs[facility] of 00:00:[address] [facility] Influenza High Dose 2020-03-03 Completed [facility] rs[facility] of 00:00:[address] [facility] Influenza High Dose 2020-03-03 Completed [facility] rs[facility] of 00:00:[address] [facility] Influenza High Dose 2020-03-03 Completed [facility] rs[facility] of 00:00:[address] [facility] Influenza High Dose 2020-03-03 Completed [facility] rs[facility] of 00:00:[address] [facility] Influenza High Dose 2020-03-03 Completed [facility] rs[facility] of 00:00:[address] [facility] Influenza High Dose 2020-03-03 Completed [facility] rs[facility] of 00:00:[address] [facility] TDAP 2019-04-04 Completed University of 00:00:[address] [facility] Flu Trivalent 2019-04-04 Completed University of 00:00:[address] [facility] Influenza High Dose 2019-04-04 Completed [facility] rs[facility] of 00:00:[address] [facility] TDAP 2019-04-04 Completed [facility] of 00:00:[address] [facility] Flu Trivalent 2019-04-04 Completed University of 00:00:[address] [facility] Influenza High Dose 2019-04-04 Completed [facility] of 00:00:[address] [facility] TDAP 2019-04-04 Completed [facility] of 00:00:[address] [facility] Flu Trivalent 2019-04-04 Completed [facility] of 00:00:[address] [facility] Influenza High Dose 2019-04-04 Completed [facility] rs[facility] of 00:00:[address] [facility] TDAP 2019-04-04 Completed [facility] of 00:00:[address] [facility] Flu Trivalent 2019-04-04 Completed [facility] of 00:00:[address] [facility] Influenza High Dose 2019-04-04 Completed [facility] of 00:00:[address] [facility] Flu Trivalent 2019-04-04 Completed [facility] of 00:00:[address] [facility] Influenza High Dose 2019-04-04 Completed [facility] rs[facility] of 00:00:[address] [facility] TDAP 2019-04-04 Completed [facility] of 00:00:[address] [facility] Flu Trivalent 2019-04-04 Completed [facility] of 00:00:[address] [facility] Influenza High Dose 2019-04-04 Completed [facility] rs[facility] of 00:00:[address] [facility] TDAP 2019-04-04 Completed [facility] of 00:00:[address] [facility] Flu Trivalent 2019-04-04 Completed [facility] of 00:00:[address] [facility] Influenza High Dose 2019-04-04 Completed [facility] rs[facility] of 00:00:[address] [facility] TDAP 2019-04-04 Completed [facility] of 00:00:[address] [facility] Flu Trivalent 2019-04-04 Completed [facility] of 00:00:[address] [facility] Influenza High Dose 2019-04-04 Completed [facility] rs[facility] of 00:00:[address] [facility] TDAP 2019-04-04 Completed [facility] of 00:00:[address] [facility] Flu Trivalent 2019-04-04 Completed [facility] of 00:00:[address] [facility] Influenza High Dose 2019-04-04 Completed [facility] rs[facility] of 00:00:[address] [facility] TDAP 2019-04-04 Completed [facility] of 00:00:[address] [facility] Flu Trivalent 2019-04-04 Completed [facility] of 00:00:[address] [facility] Influenza High Dose 2019-04-04 Completed [facility] rs[facility] of 00:00:[address] [facility] TDAP 2019-04-04 Completed [facility] of 00:00:[address] [facility] Flu Trivalent 2019-04-04 Completed [facility] of 00:00:[address] [facility] Influenza High Dose 2019-04-04 Completed [facility] rs[facility] of 00:00:[address] [facility] TDAP 2019-04-04 Completed [facility] of 00:00:[address] [facility] Flu Trivalent 2019-04-04 Completed [facility] of 00:00:[address] [facility] Influenza High Dose 2019-04-04 Completed [facility] rs[facility] of 00:00:[address] [facility] TDAP 2019-04-04 Completed [facility] of 00:00:[address] [facility] Flu Trivalent 2019-04-04 Completed [facility] of 00:00:[address] [facility] Influenza High Dose 2019-04-04 Completed [facility] rs[facility] of 00:00:[address] [facility] TDAP 2019-04-04 Completed [facility] of 00:00:[address] [facility] Flu Trivalent 2019-04-04 Completed [facility] of 00:00:[address] [facility] Influenza High Dose 2019-04-04 Completed [facility] rs[facility] of 00:00:[address] [facility] TDAP 2019-04-04 Completed [facility] of 00:00:[address] [facility] Flu Trivalent 2019-04-04 Completed [facility] of 00:00:[address] [facility] Influenza High Dose 2019-04-04 Completed [facility] rs[facility] of 00:00:[address] [facility] TDAP 2019-04-04 Completed [facility] of 00:00:[address] [facility] Flu Trivalent 2019-04-04 Completed [facility] of 00:00:[address] [facility] Influenza High Dose 2019-04-04 Completed [facility] rs[facility] of 00:00:[address] [facility] TDAP 2019-04-04 Completed [facility] of 00:00:[address] [facility] Flu Trivalent 2019-04-04 Completed [facility] of 00:00:[address] [facility] Influenza High Dose 2019-04-04 Completed [facility] rsity of 00:00:[address] [facility] TDAP 2019-04-04 Completed [facility] of 00:00:[address] [facility] Flu Trivalent 2019-04-04 Completed [facility] of 00:00:[address] [facility] Influenza High Dose 2019-04-04 Completed [facility] rs[facility] of 00:00:[address] [facility] TDAP 2019-04-04 Completed [facility] of 00:00:[address] [facility] Flu Trivalent 2019-04-04 Completed [facility] of 00:00:[address] [facility] Influenza High Dose 2019-04-04 Completed [facility] rs[facility] of 00:00:[address] [facility] TDAP 2019-04-04 Completed [facility] of 00:00:[address] [facility] Flu Trivalent 2019-04-04 Completed [facility] of 00:00:[address] [facility] Influenza High Dose 2019-04-04 Completed [facility] of 00:00:[address] [facility] TDAP 2019-04-04 Completed [facility] of 00:00:[address] [facility] TDAP 2019-04-04 Completed [facility] of 00:00:[address] [facility] Flu Trivalent 2019-04-04 Completed [facility] of 00:00:[address] [facility] Influenza High Dose 2019-04-04 Completed [facility] rs[facility] of 00:00:[address] [facility] Flu Trivalent 2019-04-04 Completed [facility] of 00:00:[address] [facility] TDAP 2019-04-04 Completed [facility] of 00:00:[address] [facility] Flu Trivalent 2019-04-04 Completed [facility] of 00:00:[address] [facility] Influenza High Dose 2019-04-04 Completed [facility] rs[facility] 00:00:[address] [facility] Influenza High Dose 2019-04-04 Completed [facility] 00:00:[address] [facility] TDAP 2019-04-04 Completed [facility] of 00:00:[address] [facility] Flu Trivalent 2019-04-04 Completed [facility] of 00:00:[address] [facility] Influenza High Dose 2019-04-04 Completed [facility] 00:00:[address] [facility] TDAP 2019-04-04 Completed [facility] of 00:00:[address] [facility] Flu Trivalent 2019-04-04 Completed [facility] of 00:00:[address] [facility] Influenza High Dose 2019-04-04 Completed [facility] of 00:00:[address] [facility] TDAP 2019-04-04 Completed [facility] of 00:00:[address] [facility] Flu Trivalent 2019-04-04 Completed [facility] of 00:00:[address] [facility] Influenza High Dose 2019-04-04 Completed [facility] of 00:00:[address] [facility] TDAP 2019-04-04 Completed [facility] of 00:00:[address] [facility] Flu Trivalent 2019-04-04 Completed [facility] of 00:00:[address] [facility] Influenza High Dose 2019-04-04 Completed [facility] 00:00:[address] [facility] TDAP 2019-04-04 Completed [facility] of 00:00:[address] [facility] Flu Trivalent 2019-04-04 Completed [facility] of 00:00:[address] [facility] Influenza High Dose 2019-04-04 Completed [facility] of 00:00:[address] [facility] TDAP 2019-04-04 Completed [facility] of 00:00:[address] [facility] Flu Trivalent 2019-04-04 Completed [facility] of 00:00:[address] [facility] Influenza High Dose 2019-04-04 Completed [facility] of 00:00:[address] [facility] TDAP 2019-04-04 Completed [facility] of 00:00:[address] [facility] Flu Trivalent 2019-04-04 Completed [facility] of 00:00:[address] [facility] Influenza High Dose 2019-04-04 Completed [facility] of 00:00:[address] [facility] TDAP 2019-04-04 Completed [facility] of 00:00:[address] [facility] TDAP 2019-04-04 Completed [facility] of 00:00:[address] [facility] Flu Trivalent 2019-04-04 Completed [facility] of 00:00:[address] [facility] Influenza High Dose 2019-04-04 Completed [facility] 00:00:[address] [facility] TDAP 2019-04-04 Completed [facility] of 00:00:[address] [facility] Flu Trivalent 2019-04-04 Completed [facility] of 00:00:[address] [facility] Flu Trivalent 2019-04-04 Completed [facility] of 00:00:[address] [facility] Influenza High Dose 2019-04-04 Completed [facility] 00:00:[address] [facility] Influenza High Dose 2019-04-04 Completed [facility] 00:00:[address] [facility] TDAP 2019-04-04 Completed [facility] of 00:00:[address] [facility] Flu Trivalent 2019-04-04 Completed [facility] of 00:00:[address] [facility] Influenza High Dose 2019-04-04 Completed [facility] rs[facility] of 00:00:[address] [facility] TDAP 2019-04-04 Completed [facility] of 00:00:[address] [facility] Flu Trivalent 2019-04-04 Completed [facility] of 00:00:[address] [facility] Influenza High Dose 2019-04-04 Completed [facility] of 00:00:[address] [facility] TDAP 2019-04-04 Completed [facility] of 00:00:[address] [facility] Influenza High Dose 2017-03-03 Completed [facility] of 00:00:[address] [facility] Influenza High Dose 2017-03-03 Completed [facility] 00:00:[address] [facility] Influenza High Dose 2017-03-03 Completed [facility] of 00:00:[address] [facility] Influenza High Dose 2017-03-03 Completed [facility] of 00:00:[address] [facility] Influenza High Dose 2017-03-03 Completed [facility] of 00:00:[address] [facility] Influenza High Dose 2017-03-03 Completed [facility] of 00:00:[address] [facility] Influenza High Dose 2017-03-03 Completed [facility] of 00:00:[address] [facility] Influenza High Dose 2017-03-03 Completed [facility] 00:00:[address] [facility] Influenza High Dose 2017-03-03 Completed [facility] of 00:00:[address] [facility] Influenza High Dose 2017-03-03 Completed [facility] 00:00:[address] [facility] Influenza High Dose 2017-03-03 Completed [facility] 00:00:[address] [facility] Influenza High Dose 2017-03-03 Completed [facility] 00:00:[address] [facility] Influenza High Dose 2017-03-03 Completed [facility] 00:00:[address] [facility] Influenza High Dose 2017-03-03 Completed [facility] of 00:00:[address] [facility] Influenza High Dose 2017-03-03 Completed [facility] 00:00:[address] [facility] Influenza High Dose 2017-03-03 Completed [facility] 00:00:[address] [facility] Influenza High Dose 2017-03-03 Completed [facility] 00:00:[address] [facility] Influenza High Dose 2017-03-03 Completed [facility] 00:00:[address] [facility] Influenza High Dose 2017-03-03 Completed [facility] of 00:00:[address] [facility] Influenza High Dose 2017-03-03 Completed [facility] of 00:00:[address] [facility] Influenza High Dose 2017-03-03 Completed [facility] 00:00:[address] [facility] Influenza High Dose 2017-03-03 Completed [facility] 00:00:[address] [facility] Influenza High Dose 2017-03-03 Completed [facility] 00:00:[address] [facility] Influenza High Dose 2017-03-03 Completed [facility] 00:00:[address] [facility] Influenza High Dose 2017-03-03 Completed [facility] of 00:00:[address] [facility] Influenza High Dose 2017-03-03 Completed [facility] 00:00:[address] [facility] Influenza High Dose 2017-03-03 Completed [facility] 00:00:[address] [facility] Influenza High Dose 2017-03-03 Completed [facility] of 00:00:[address] [facility] Influenza High Dose 2017-03-03 Completed [facility] of 00:00:[address] [facility] Influenza High Dose 2017-03-03 Completed [facility] of 00:00:[address] [facility] Influenza High Dose 2017-03-03 Completed [facility] of 00:00:[address] [facility] Influenza High Dose 2017-03-03 Completed [facility] of 00:00:[address] [facility] Influenza High Dose 2017-03-03 Completed [facility] 00:00:[address] [facility] Influenza High Dose 2017-03-03 Completed [facility] rs[facility] of 00:00:[address] [facility] Influenza High Dose 2017-03-03 Completed [facility] rsity of 00:00:[address] [facility] Pneumococcal 2016-05-01 Completed University o f Polysaccharide, 00:00:00 [place] [facility] PPSV23 (PNEUMOVAX) [facility] Pneumococcal 2016-05-01 Completed [facility] o f Polysaccharide, 00:00:00 [place] [facility] PPSV23 (PNEUMOVAX) [facility] Pneumococcal 2016-05-01 Completed [facility] o f Polysaccharide, 00:00:00 [place] [facility] PPSV23 (PNEUMOVAX) [facility] Pneumococcal 2016-05-01 Completed [facility] o f Polysaccharide, 00:00:00 [place] [facility] PPSV23 (PNEUMOVAX) Branch Pneumococcal 2016-05-01 Completed [facility] o f Polysaccharide, 00:00:00 [place] [facility] PPSV23 (PNEUMOVAX) Branch Pneumococcal 2016-05-01 Completed [facility] o f Polysaccharide, 00:00:00 [place] [facility] PPSV23 (PNEUMOVAX) [facility] Pneumococcal 2016-05-01 Completed [facility] o f Polysaccharide, 00:00:00 [place] [facility] PPSV23 (PNEUMOVAX) Branch Pneumococcal 2016-05-01 Completed [facility] o f Polysaccharide, 00:00:00 [place] [facility] PPSV23 (PNEUMOVAX) Branch Pneumococcal 2016-05-01 Completed [facility] o f Polysaccharide, 00:00:00 [place] [facility] PPSV23 (PNEUMOVAX) Branch Pneumococcal 2016-05-01 Completed [facility] o f Polysaccharide, 00:00:00 [place] [facility] PPSV23 (PNEUMOVAX) Branch Pneumococcal 2016-05-01 Completed [facility] o f Polysaccharide, 00:00:00 [place] [facility] PPSV23 (PNEUMOVAX) Branch Pneumococcal 2016-05-01 Completed [facility] o f Polysaccharide, 00:00:00 [place] [facility] PPSV23 (PNEUMOVAX) Branch Pneumococcal 2016-05-01 Completed [facility] o f Polysaccharide, 00:00:00 [place] [facility] PPSV23 (PNEUMOVAX) Branch Pneumococcal 2016-05-01 Completed [facility] o f Polysaccharide, 00:00:00 [place] [facility] PPSV23 (PNEUMOVAX) Branch Pneumococcal 2016-05-01 Completed [facility] o f Polysaccharide, 00:00:00 [place] [facility] PPSV23 (PNEUMOVAX) Branch Pneumococcal 2016-05-01 Completed [facility] o f Polysaccharide, 00:00:00 [place] [facility] PPSV23 (PNEUMOVAX) Branch Pneumococcal 2016-05-01 Completed [facility] o f Polysaccharide, 00:00:00 [place] [facility] PPSV23 (PNEUMOVAX) Branch Pneumococcal 2016-05-01 Completed [facility] o f Polysaccharide, 00:00:00 [place] [facility] PPSV23 (PNEUMOVAX) Branch Pneumococcal 2016-05-01 Completed [facility] o f Polysaccharide, 00:00:00 [place] [facility] PPSV23 (PNEUMOVAX) Branch Pneumococcal 2016-05-01 Completed [facility] o f Polysaccharide, 00:00:00 [place] [facility] PPSV23 (PNEUMOVAX) Branch Pneumococcal 2016-05-01 Completed [facility] o f Polysaccharide, 00:00:00 [place] [facility] PPSV23 (PNEUMOVAX) Branch Pneumococcal 2016-05-01 Completed [facility] o f Polysaccharide, 00:00:00 [place] [facility] PPSV23 (PNEUMOVAX) Branch Pneumococcal 2016-05-01 Completed [facility] o f Polysaccharide, 00:00:00 [place] [facility] PPSV23 (PNEUMOVAX) Branch Pneumococcal 2016-05-01 Completed [facility] o f Polysaccharide, 00:00:00 [place] [facility] PPSV23 (PNEUMOVAX) Branch Pneumococcal 2016-05-01 Completed [facility] o f Polysaccharide, 00:00:00 [place] [facility] PPSV23 (PNEUMOVAX) Branch Pneumococcal 2016-05-01 Completed [facility] o f Polysaccharide, 00:00:00 [place] [facility] PPSV23 (PNEUMOVAX) Branch Pneumococcal 2016-05-01 Completed [facility] o f Polysaccharide, 00:00:00 [place] [facility] PPSV23 (PNEUMOVAX) Branch Pneumococcal 2016-05-01 Completed [facility] o f Polysaccharide, 00:00:00 [place] [facility] PPSV23 (PNEUMOVAX) Branch Pneumococcal 2016-05-01 Completed [facility] o f Polysaccharide, 00:00:00 [place] [facility] PPSV23 (PNEUMOVAX) Branch Pneumococcal 2016-05-01 Completed [facility] o f Polysaccharide, 00:00:00 [place] [facility] PPSV23 (PNEUMOVAX) Branch Pneumococcal 2016-05-01 Completed [facility] o f Polysaccharide, 00:00:00 [place] [facility] PPSV23 (PNEUMOVAX) Branch Pneumococcal 2016-05-01 Completed [facility] o f Polysaccharide, 00:00:00 [place] [facility] PPSV23 (PNEUMOVAX) Branch Pneumococcal 2016-05-01 Completed [facility] o f Polysaccharide, 00:00:00 [place] [facility] PPSV23 (PNEUMOVAX) Branch Pneumococcal 2016-05-01 Completed [facility] o f Polysaccharide, 00:00:00 [place] [facility] PPSV23 (PNEUMOVAX) Branch Pneumococcal 2016-05-01 Completed [facility] o f Polysaccharide, 00:00:00 [place] [facility] PPSV23 (PNEUMOVAX) [facility] TDAP Unknown Completed [facility] SARS-COV-2 COVID-19 Unknown Completed Unive rsity of VACCINE - (MODERNA) [facility] SARS-COV-2 COVID-19 Unknown Completed [facility]ive [facility]ity of VACCINE - (MODERNA) [facility] SARS-COV-2 COVID-19 Unknown Completed [facility]ity of VACCINE - (MODERNA) [facility] SARS-COV-2 COVID-19 Unknown Completed [facility] rsity of VACCINE, BIVALENT [place] [facility] (MODERNA BOOSTER) Branch Flu Trivalent Unknown Completed [facility] Influenza High Dose Unknown Completed [facility] D[facility] D[facility] Completed [facility] [place] [facility] Pneumococcal Unknown Completed [facility] o f Polysaccharide, [place] [facility] PPSV23 (PNEUMOVAX) Branch Vital Signs Vital Name Observation Time Observation Value Comments Source Systolic blood 2023-01-27 16:23:00 129 mm[Hg] [facility] Diastolic blood 2023-01-27 16:23:00 70 mm[Hg] [facility] Heart rate 2023-01-27 16:23:00 77 /min [facility] [place] [facility] Body height 2023-01-27 16:23:00 149.9 cm [facility] Body weight 2023-01-27 16:23:00 59.966 kg [facility] BMI 2023-01-27 16:23:00 26.70 kg/m2 [facility] Systolic blood 2023-01-05 14:25:00 116 mm[Hg] [facility] Diastolic blood 2023-01-05 14:25:00 69 mm[Hg] [facility] Heart rate 2023-01-05 14:25:00 76 /min [facility] Body height 2023-01-05 14:25:00 149.9 cm [facility] Systolic blood 2022-12-26 18:55:00 113 mm[Hg] [facility] Diastolic blood 2022-12-26 18:55:00 63 mm[Hg] [facility] Heart rate 2022-12-26 18:55:00 74 /min [facility] Body height 2022-12-26 18:55:00 149.9 cm [facility] Body weight 2022-12-26 18:55:00 57.153 kg [facility] BMI 2022-12-26 18:55:00 25.45 kg/m2 [facility] Systolic blood 2022-12-20 20:44:00 169 mm[Hg] [facility] Diastolic blood 2022-12-20 20:44:00 64 mm[Hg] [facility] Heart rate 2022-12-20 20:44:00 68 /min [facility] Body temperature 2022-12-20 20:44:00 35.94 [place] [facility] Respiratory rate 2022-12-20 20:44:00 18 /min [facility] Oxygen saturation in 2022-12-20 20:44:00 93 /min University of Arterial blood by [facility] demar Pulse oximetry Branch Body height 2022-12-19 20:00:00 149.9 cm [facility] Body weight 2022-12-19 20:00:00 61.462 kg [facility] BMI 2022-12-19 20:00:00 27.37 kg/m2 [facility] Systolic blood 2022-12-19 12:17:00 156 mm[Hg] [facility] Diastolic blood 2022-12-19 12:17:00 71 mm[Hg] Unive [facility] Heart rate 2022-12-19 12:17:00 60 /min [facility] Body temperature 2022-12-19 12:17:00 36.33 Tiffanie [facility] Respiratory rate 2022-12-19 12:17:00 19 /min [facility] Oxygen saturation in 2022-12-19 12:17:00 96 /min University of Arterial blood by [facility] Pulse oximetry Branch Body weight 2022-12-15 14:49:00 58.968 kg [facility] BMI 2022-12-15 14:49:00 26.26 kg/m2 [facility] Systolic blood 2022-12-01 15:18:00 153 mm[Hg] [facility] Diastolic blood 2022-12-01 15:18:00 71 mm[Hg] Unive [facility] Heart rate 2022-12-01 15:18:00 67 /min [facility] Body height 2022-12-01 15:18:00 149.9 cm [facility] Body weight 2022-12-01 15:18:00 59.24 kg [facility] BMI 2022-12-01 15:18:00 26.38 kg/m2 [facility] Systolic blood 2022-11-08 14:23:00 152 mm[Hg] Univer [facility]ity [facility] [place] [facility] Diastolic blood 2022-11-08 14:23:00 76 mm[Hg] Unive rsity of pressure [facility] Heart rate 2022-11-08 14:23:00 71 /min Universi ty of [facility] Oxygen saturation in 2022-11-08 14:23:00 94 /min University Arterial blood by [facility] Pulse oximetry Branch Respiratory rate 2022-11-08 14:18:00 19 /min Univ ersity of [facility] Body height 2022-11-08 14:18:00 149.9 cm Universi ty of [facility] Body weight 2022-11-08 14:18:00 58.877 kg Universi ty of [facility] BMI 2022-11-08 14:18:00 26.22 kg/m2 Universi ty of [facility] Body height 2022-11-02 18:12:00 149.9 cm Universi ty of [facility] Body weight 2022-11-02 18:12:00 59.058 kg Universi ty of [facility] BMI 2022-11-02 18:12:00 26.30 kg/m2 Universi ty of [facility] Body height 2022-03-11 14:29:00 142.7 cm Universi ty of [facility] Body weight 2022-03-11 14:29:00 56.246 kg Universi ty of [facility] BMI 2022-03-11 14:29:00 27.60 kg/m2 Universi ty [facility] Systolic blood 2022-10-27 16:27:10 155 mm[Hg] [facility] pressure Diastolic blood 2022-10-27 16:27:10 70 mm[Hg] [facility] pressure Heart rate 2022-10-27 16:27:10 83 /min [facility] Body temperature 2022-10-27 16:27:[address] [facility] Respiratory rate 2022-10-27 16:27:10 19 /min [facility] Oxygen saturation in 2022-10-27 16:27:10 95 /min [facility] Arterial blood by Pulse oximetry Body height 2022-10-25 16:18:00 149.9 cm [facility] Body weight 2022-10-25 16:18:00 55.339 kg [facility] BMI 2022-10-25 16:18:00 24.64 kg/m2 [facility] Procedures Procedure Date / Time Performing Clinician Source Performed REFERRAL- 2023-03-23 05:01:00 Doctor Unassigned, [facility] REQUEST/RESPONSE [facility] OP CORRESPONDENCE 2023-02-27 05:01:00 Doctor Unassigned, [facility] REFERRAL- 2023-02-20 05:01:00 Doctor Mercedesssla nena, [facility] REQUEST/RESPONSE [facility] ASSIGNMENT OF BENEFITS 2023-01-05 14:18:04 Doctor Unassigned, [facility] PHOSPHORUS 2022-12-20 11:38:00 Chuy [facility] MAGNESIUM 2022-12-20 11:38:00 Chuy [facility] THYROID STIMULATING 2022-12-20 11:38:00 Hilario Vera [facility] [place] HEPATIC FUNCTION PANEL 2022-12-20 11:38:00 Hilario Vera [facility] ([id number]) (ALB,T.PRO,BILI Medical Branch T,BU/BC,ALT,AST,ALK PHOS) BASIC METABOLIC PANEL 2022-12-20 11:38:00 Hilario Vera [facility] (NA, K, CL, CO2, GLUCOSE, Medica l Branch BUN, CREATININE, CA) CBC WITH DIFF 2022-12-20 11:38:00 Chuy [facility] PHOSPHORUS 2022-12-20 11:38:00 Chuy [facility] MAGNESIUM 2022-12-20 11:38:00 Chuy [facility] THYROID STIMULATING 2022-12-20 11:38:00 Hilario Vera [facility] [place] HEPATIC FUNCTION PANEL 2022-12-20 11:38:00 Hilario Vera [facility] ([id number]) (ALB,T.PRO,BILI Medical Branch T,BU/BC,ALT,AST,ALK PHOS) BASIC METABOLIC PANEL 2022-12-20 11:38:00 Chuy Hilario [facility] (NA, K, CL, CO2, GLUCOSE, Medica l Branch BUN, CREATININE, CA) CBC WITH DIFF 2022-12-20 11:38:00 Hilario Vera o f [facility] MRSA / MSSA SCREEN BY 2022-12-19 22:08:00 Elin Sims [facility] PCR, [facility] [place] MRSA / MSSA SCREEN BY 2022-12-19 22:08:00 Elin Sims [facility] PCR, [facility] XR KNEE <3 VW LEFT 2022-12-19 18:53:03 Elin Sims [facility] XR KNEE <3 VW LEFT 2022-12-19 18:53:03 Elin Sims [facility] TOTAL KNEE ARTHROPLASTY 2022-12-19 14:55:00 [facility]LAST[facility] 2022-12-19 14:55:00 Elin Sim[facility] EXTERNAL PROVIDER RECORDS 2022-12-01 05:01:00 Doctor Unassigned, [facility] DSU PRE-OP 2022-12-01 05:01:00 Doctor Unassigned, [facility] EXTERNAL PROVIDER RECORDS 2022-12-01 05:01:00 Doctor Unassigned, [facility] DSU PRE-OP 2022-12-01 05:01:00 Doctor Unassigned, [facility] Name Medical Branch NM MYOCARDIUM PERFUSION 2022-11-22 17:15:00 Ravin, [facility] STRESS AND REST Medical Branch NUCLEAR STRESS TEST 2022-11-22 17:15:00 Ravin, [facility] CARDIOLOGY (DO NOT SCHED) Medica l Branch NUCLEAR STRESS TEST 2022-11-22 17:15:00 Ravin, [facility] CARDIOLOGY (DO NOT SCHED) Medica l Branch NM MYOCARDIUM PERFUSION 2022-11-22 17:15:00 Ravin, [facility] STRESS AND REST Medical Branch NM MYOCARDIUM PERFUSION 2022-11-22 17:15:00 Ravin, [facility] STRESS AND REST Medical Branch NUCLEAR STRESS TEST 2022-11-22 17:15:00 Ravin [facility] CARDIOLOGY (DO NOT SCHED) Medica l Branch NM MYOCARDIUM PERFUSION 2022-11-22 17:15:00 Ravin [facility] STRESS AND REST Medical Branch NUCLEAR STRESS TEST 2022-11-22 17:15:00 Ravin [facility] CARDIOLOGY (DO NOT SCHED) Medica l Branch ASSIGNMENT OF BENEFITS 2022-11-22 13:14:23 [facility] [place] HB ECG ROUTINE & RHYTHM 2022-11-08 14:20:55 Ravin [facility] STRIP [facility] Branch [facility] PATIENT FINANCIAL 2022-11-02 18:05:55 Doctor Unassigned, Un [facility] POLICY [facility] BASIC METABOLIC PANEL 2022-10-27 08:37:00 [facility] LACTIC ACID LEVEL 2022-10-27 08:37:00 [facility] ESTIMATED GFR 2022-10-27 08:37:00 [facility] CBC WITH PLATELET AND 2022-10-26 11:18:00 [facility] DIFFERENTIAL BASIC METABOLIC PANEL 2022-10-26 11:18:00 [facility] LACTIC ACID LEVEL 2022-10-26 11:18:00 [facility] ESTIMATED GFR 2022-10-26 11:18:00 [facility] CT SINUS WO CONTRAST 2022-10-25 23:52:27 [facility] ECG 12-LEAD 2022-10-25 21:44:16 [facility] [place] [facility] CHEST WO CONTRAST 2022-10-25 19:05:34 [facility] [place] XR CHEST 1 VW PORTABLE 2022-10-25 17:42:27 Elan Wild [facility] COVID-19, INFLUENZA A&B, 2022-10-25 17:10:00 Seth Parrish [facility] AND RSV QUALITATIVE [place] RT-PCR CBC WITH PLATELET AND 2022-10-25 17:10:00 Elan Wild [facility] DIFFERENTIAL COMPREHENSIVE METABOLIC 2022-10-25 17:10:00 Elan Wild [facility] PANEL LACTIC ACID LEVEL 2022-10-25 17:10:00 Elan Wild [facility] B NATRIURETIC PEPTIDE 2022-10-25 17:10:00 Elan Wild [facility] TROPONIN T 2022-10-25 17:10:00 Elan Wild [facility] ESTIMATED GFR 2022-10-25 17:10[facility]00 [facility] ED PRELIMINARY 2022-10-25 16:28:03 Seth Parrish [facility] INTERPRETATION [place] XR KNEE 3 VW LEFT 2022-04-29 14:06:14 Liss Nava [facility] XR KNEE AP STANDING 2022-04-29 14:05:[address] [facility] BILATERAL AUTHORIZATION FOR RELEASE 2022-04-11 05:01:00 Doctor Unassigned, [facility] Plan of Care Planned Activity Planned Date Details Comments Source Future Scheduled 2023-04-21 Screening for [facility] Test 17:39:58 malignant neoplasm of colon (procedure) [code = 911512708] Future Scheduled 2023-04-21 Screening for [facility] Test 17:39:58 malignant neoplasm of colon (procedure) [code = 248175384] Future Scheduled 2023-04-21 Screening for [facility] Test 17:39:58 malignant neoplasm of colon (procedure) [code = 569653999] Future Scheduled 2023-04-21 Hepatitis C screening [facility] Test 17:39:58 (procedure) [code = 243189765] Future Scheduled 2023-04-21 BREAST CANCER [facility] Test 17:39:58 SCREENING [code = BREAST CANCER SCREENING] Future Scheduled 2023-04-21 Screening for [facility] Test 17:39:58 malignant neoplasm of colon (procedure) [code = 330784237] Future Scheduled 2023-04-21 Screening for [facility] Test 17:39:58 malignant neoplasm of colon (procedure) [code = 198737250] Future Scheduled 2023-04-21 SHINGLES VACCINES (1 Met [facility] Hospital Test 17:39:58 of 2) [code = SHINGLES VACCINES (1 of 2)] Future Scheduled 2023-04-21 65+ P[facility]UMOCOCCAL [facility] Test 17:39:58 VACCINE (2 - PCV) [code = 65+ PNEUMOCOCCAL VACCINE (2 - PCV)] Future Scheduled 2023-04-21 COVID-19 VACCINE (5 - Me [facility] Test 17:39:58 Moderna series) [code = COVID-19 VACCINE (5 - Moderna series)] Future Scheduled 2023-04-21 INFLUENZA VACCINE (#1) M [facility] Test 17:39:58 [code = INFLUENZA VACCINE (#1)] Future Scheduled 2022-12-06 Hepatitis C screening [facility] Test 15:38:32 (procedure) [code = 759355754] Future Scheduled 2022-12-06 SHINGLES VACCINES (1 Met [facility] Test 15:38:32 of 2) [code = SHINGLES VACCINES (1 of 2)] Future Scheduled 2022-12-06 BREAST CANCER [facility] Test 15:38:32 SCREENING [code = BREAST CANCER SCREENING] Future Scheduled 2022-12-06 COLONOSCOPY SCREENING [facility] Test 15:38:32 [code = COLONOSCOPY SCREENING] Future Scheduled 2022-12-06 65+ [facility]OCOCCAL [facility] 15:38:32 VACCINE (2 - PCV) [code = 65+ PNEUMOCOCCAL VACCINE (2 - PCV)] Future Scheduled 2022-12-06 INFLUENZA VACCINE Method [facility] Hospital Test 15:38:32 [code = INFLUENZA VACCINE] Encounters Start End Encounter Admission Attending Care Care Encounter Source Date/Time Date/Time Type Type Clinicians Facility Department ID 2021-05-18 Emergency [facility] [id number] Univers 09:26:53 ity [facility] 2021-05-16 Emergency [facility] [id number] Univers 23:42:49 ity [facility] 2021-05-16 Emergency [facility] [id number] [facility] 2023-03-24 Telephone Bethany [facility] 1.2.840.114 [id number] Univers 00:00:00 00:00:00 Elin L HEALTH 350.1.13.10 it y of [place] 4.2.7.2.686 Asael as CHANCE?BLEA [phone] Ri stephany PAZ [address] [facility] 2023-03-23 2023-03-23 Orders Doctor SUSHIL 1.2.840.114 [id number] Univers 00:00:00 00:00:00 Only Unassigned, [place] 350.1.13.10 ity [facility] 4.2.7.2.686 Asael as [phone] [address] 2023-03-01 2023-03-01 Blu [facility] 1.2.840.114 [id number] Univers 00:00:00 00:00:00 Jonathan S HEALTH 350.1.13.10 it y of [place] 4.2.7.2.686 Asael as CHANCE?BLEA [phone] Ri stephany PAZ 198 [facility] 2023-02-27 2023-02-27 Orders Doctor SUSHIL 1.2.840.114 [id number] Univers 00:00:00 00:00:00 Only [place]assigned[place] 350.1.13.10 ity [facility] 4.2.7.2.686 Asael as [id number] [address] 2023-02-24 2023-02-24 Blu [facility] 1.2.840.114 [id number] Univers 00:00:00 00:00:00 Jonathan S HEALTH 350.1.13.10 it y of [place] 4.2.7.2.686 Asael as CHANCE?BLEA [phone] Ri stephany PAZ 198 [facility] 2023-02-22 2023-02-22 Blu [facility] 1.2.840.114 [id number] Univers 00:00:00 00:00:00 Jonathan S HEALTH 350.1.13.10 it y of [place] 4.2.7.2.686 Asael as CHANCE?BLEA [phone] Ri stephany PAZ 198 [facility] 2023-02-21 2023-02-21 Edith KENNEDY, [facility] [id number] Univers 15:00:00 15:00:00 [facility] 2023-02-20 2023-02-20 Orders Doctor SUSHIL 1.2.840.114 [id number] Univers 00:00:00 00:00:00 Only [place]assigned[place] 350.1.13.10 ity [facility] 4.2.7.2.686 Asael as [phone] [address] 2023-02-03 2023-02-03 [facility] [id number] Univers 09:30:00 09:30:00 [facility] 2023-01-27 2023-01-27 Office [facility] 1..840.114 [id number] Univers 10:45:00 11:00:00 Visit [facility] 350.1.13.10 it y of [place] 4.2.7.2.686 Asael as CHANCE?BLEA [phone] Ri stephany PAZ [address] [place] [address] OFFICE [facility] 2023-01-27 2023-01-27 [facility] [id number] Univers 10:45:00 10:45:00 [facility] 2023-01-26 2023-01-26 [facility] 1.2.840.114 [id number] Univers 00:00:00 00:00:00 [facility] 350.1.13.10 it y of [place] 4.2.7.2.686 Asael as CHANCE?BLEA [id number] Ri stephany PAZ [address] [place] [address] OFFICE [facility] 2023-01-11 2023-01-11 [facility] 1..840.114 [id number] Univers 00:00:00 00:00:00 [facility] HEALTH 350.1.13.10 it y of [place] 4.2.7.2.686 Asael as CHANCE?BLEA [id number] Ri stephany PAZ [address] [place] [address] OFFICE [facility] 2023-01-10 2023-01-10 Telephone [facility] 1..840.114 10 [id number] Univers 00:00:00 00:00:00 Elin L HEALTH 350.1.13.10 it y of [place] 4.2.7.2.686 Asael as CHANCE?BLEA [id number] Ri stephany PAZ 198 [facility] OFFICE [facility] 2023-01-10 2023-01-10 Telephone [facility] 1.2.148.576 [id number] Univers 00:00:00 00:00:00 Jonathan S HEALTH 350.1.13.10 it y of [place] 4.2.7.2.686 Asael as CHANCE?BLEA [id number] Ri stephany PAZ [address] [place] [address] OFFICE [facility] 2023-01-06 2023-01-06 Telephone [facility] 1.2.840.114 10 [id number] Univers 00:00:00 00:00:00 Elin L HEALTH 350.1.13.10 it y of [place] 4.2.7.2.686 Asael as CHANCE?BLEA [phone] Ri stephany PAZ [address] [place] [address] 2023-01-05 2023-01-05 Outpatient R [facility] [id number] [facility] 09:25:00 23:59:00 JONATHAN ity of [facility] 2023-01-05 2023-01-05 Office [facility] 1.2.840.114 [id number] Univers 10:15:00 10:30:00 Visit Jonathan HEALTH 350.1.13.10 it y of [place] 4.2.7.2.686 Asael as CHANCE?BLEA [id number] Ri stephany PAZ [address] [place] [address] OFFICE [facility] 2023-01-05 2023-01-05 Orders Doctor SUSHIL 1.2.840.114 [id number] Univers 00:00:00 00:00:00 Only [place]igned[place] 350.1.13.10 ity [facility] [place] [facility] 4.2.7.2.686 Asael as [id number] [address] 2023-01-05 2023-01-05 Telephone [facility] 1.2.558.885 [id number] Univers 00:00:00 00:00:00 Jonathan S HEALTH 350.1.13.10 it y of [place] 4.2.7.2.686 Asael as CHANCE?BLEA [phone] Me stephany PAZ 198 [facility] OFFICE [facility] 2023-01-03 2023-01-03 Patient Bekah [facility] 1.2.840.114 [id number] Univers 00:00:00 00:00:00 Outreach Nuzhat Corona HEALTH 350.1.13.10 ity of [place] 4.2.7.2.686 Asael as CHANCE?BLEA [phone] Me stephany PAZ 198 [facility] OFFICE [facility] 2022-12-30 2022-12-30 Telephone [facility] 1.2.840.114 10 [id number] Univers 00:00:00 00:00:00 Elin L HEALTH 350.1.13.10 it y of [place] 4.2.7.2.686 Asael as CHANCE?BLEA [id number] Ri stephany PAZ 198 [facility] OFFICE [facility] 2022-12-29 2022-12-29 Refill [facility] 1.2.194.499 [id number] Univers 00:00:00 00:00:00 Elin L HEALTH 350.1.13.10 it y of [place] 4.2.7.2.686 Asael as CHANCE?BLEA [phone] Ri stephany PAZ 044 [facility] OFFICE [facility] 2022-12-29 2022-12-29 Telephone [facility] 1.2.222.928 [id number] Univers 00:00:00 00:00:00 Jonathan HEALTH 350.1.13.10 it y of [place] 4.2.7.2.686 Asael as CHANCE?BLEA [phone] Ri stephany PAZ 198 [facility] OFFICE [facility] 2022-12-27 2022-12-[address] [facility] 1.2.840.114 10 [id number] Univers 00:00:00 00:00:00 Elin L HEALTH 350.1.13.10 it y of [place] 4.2.7.2.686 Asael as CHANCE?BLEA [id number] Ri stephany PAZ 044 [facility] OFFICE [facility] 2022-12-26 2022-12-26 Office [facility] 1.2.840.114 [id number] Univers 14:00:00 14:04:12 Visit [facility] 350.1.13.10 it y of [place] 4.2.7.2.686 Asael as CHANCE?BLEA [id number] Ri stephany PAZ 198 [facility] OFFICE [facility] 2022-12-26 2022-12-26 [facility] [id number] Univers 14:00:00 14:04:12 [facility] 2022-12-26 2022-12-26 Outpatient Cj BRENT [facility] [id number] Univers 14:00:00 14:00:00 [facility] 2022-12-26 2022-12-[address] [facility] 1.2.840.114 10 [id number] Univers 00:00:00 00:00:00 Elin L [facility] 350.1.13.10 it y of [place] 4.2.7.2.686 Asael as CHANCE?BLEA [phone] Ri stephany PAZ [address] [place] [address] 2022-12-26 2022-12-[address] [facility] 1.2.840.114 10 [id number] Univers 00:00:00 00:00:00 Elni [facility] 350.1.13.10 it y of [place] 4.2.7.2.686 Asael as CHANCE?BLEA [phone] Ri stephany PAZ [address] [place] [address] 2022-12-23 2022-12-[address] [facility] 1.2.840.114 10 [id number] Univers 00:00:00 00:00:00 Elin Crespo HEALTH 350.1.13.10 it y of [place] 4.2.7.2.686 Asael as CHANCE?BLEA [id number] Ri stephany PAZ [address] [place] [address] 2022-12-23 2022-12-[address] [facility] 1.2.840.114 10 [id number] Univers 00:00:00 00:00:00 Elin Crespo HEALTH 350.1.13.10 it y of [place] 4.2.7.2.686 Asael as CHANCE?BLEA [phone] Ri stephany PAZ [address] [place] [address] 2022-12-22 2022-12-22 Telephone Bethany [facility] 1.2.840.114 10 [id number] Univers 00:00:00 00:00:00 Elin SARABIA 350.1.13.10 it y of [place] 4.2.7.2.686 Asael as CHANCE?BLEA [id number] Ri stephany PAZ 198 [facility] 2022-12-22 2022-12-22 [place] Bethany [facility] 1.2.840.114 10 [id number] Univers 00:00:00 00:00:00 Elin SARABIA 350.1.13.10 it y of [place] 4.2.7.2.686 Asael as CHANCE?BLEA [phone] Ri stephany PAZ 198 [facility] 2022-12-21 2022-12-21 [place] [facility] 1.2.840.114 10 [id number] Univers 00:00:00 00:00:00 Elin SARABIA 350.1.13.10 it y of [place] 4.2.7.2.686 Asael as CHANCE?BLEA [id number] Ri stephany PAZ 198 [facility] 2022-12-19 2022-12-20 Outpatient Cj ALVARADO [facility] SOR [id number] Univers 07:09:00 17:10:00 KATIANA foy [facility] 2022-12-19 2022-12-20 [facility] Elin Sims [facility] 1.2.840 .114 [id number] Univers 07:09:00 17:10:00 Katiana Castaneda 350.1.13.10 ity [facility] 4.2.7.2.686 [place] [facility] [id number] [address] 2022-12-20 2022-12-20 [place] Bethany [facility] 1.2.840.114 10 [id number] Univers 00:00:00 00:00:00 Elin SARABIA 350.1.13.10 it y of [place] 4.2.7.2.686 Asael as CHANCE?BLEA [id number] Ri stephany PAZ 198 [facility] 2022-12-19 2022-12-19 Surgery [facility] 1.2.160.819 [id number] Univers 09:30:00 11:48:00 Elin HDEZ 350.1.13.10 i ty of [place] 4.2.7.2.686 [place] [id number] [address] 2022-12-16 2022-12-16 Telephone Bethany [facility] 1.2.840.114 10 [id number] Univers 00:00:00 00:00:00 lEin Crespo HEALTH 350.1.13.10 it y of [place] 4.2.7.2.686 Asael as CHANCE?BLEA [id number] Ri stephany PAZ 198 [facility] OFFICE [facility] 2022-12-15 2022-12-15 Office [facility] [id number] Univers 11:00:00 11:15:00 Visit Jonathan Kelsey HEALTH 350.1.13.10 it y of [place] 4.2.7.2.686 Asael as CHANCE?BLEA [phone] Ri stephany PAZ 198 [facility] OFFICE [facility] 2022-12-15 2022-12-15 Outpatient R BRENT [facility] [id number] Univers 11:00:00 11:00:00 JONATHAN foy [facility] 2022-12-15 2022-12-15 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 114 [id number] Univers 10:15:00 11:00:00 Visit Elin Sims 350.1.13.10 [place] [place]2.7.2.686 [place] [phone] Ri dical NAL 179 [facility] 2022-12-09 2022-12-09 [facility] [id number] Univers 10:15:00 10:15:00 ELIN foy [facility] 2022-12-06 2022-12-[address] [facility] 1.2.840.114 10 [id number] Univers 00:00:00 00:00:00 Elin Crespo HEALTH 350.1.13.10 it y of [place] 4.2.7.2.686 Asael as CHANCE?BLEA [phone] Me stephany PAZ 198 [facility] OFFICE [facility] 2022-12-02 2022-12-[address] [facility] 1.2.840.114 10 [id number] Univers 00:00:00 00:00:00 Elin Crespo HEALTH 350.1.13.10 it y of [place] 4.2.7.2.686 Asael as CHANCE?BLEA [phone] Ri stephany PAZ 198 [facility] OFFICE [facility] 2022-12-02 2022-12-02 Prep For [facility] 1.2.840.114 [id number] Univers 00:00:00 00:00:00 Surgery Elin Crespo [facility] 350.1.13.10 it y of [place] 4.2.7.2.686 Asael as CHANCE?BLEA [phone] Me stephany PAZ 198 [facility] 2022-12-01 2022-12-01 Outpatient R BRENT [facility] [id number] Univers 10:15:00 10:56:47 JONATHAN [facility] 2022-12-01 2022-12-01 Office [facility] 1.2.840.114 [id number] Univers 10:15:00 10:56:47 Visit [facility] 350.1.13.10 it y of [place] 4.2.7.2.686 Asael as CHANCE?BLEA [phone] Me stephany PAZ 198 [facility] OFFICE [facility] 2022-11-28 2022-11-[address] [facility] 1.2.840.114 10 [id number] Univers 00:00:00 00:00:00 Elin Crespo HEALTH 350.1.13.10 it y of [place] 4.2.7.2.686 Asael as CHANCE?BLEA [phone] Ri stephany PAZ 198 [facility] OFFICE [facility] 2022-11-23 2022-11-23 [facility] 1.2.371.086 [id number] [id number] Univers 00:00:00 00:00:00 Qiangjun [place] 350.1.13.10 ity of [place] 4.2.7.2.686 [facility] [phone] Ri dical [facility] 059 [facility] 2022-11-22 2022-11-22 [facility] 1.2.840.114 [id number] Univers 08:17:51 08:17:51 Encounter Qiangjun [place] 350.1.13.10 ity of [place] 4.2.7.2.686 [facility] [phone] [place] 939035 [place] 2022-11-22 2022-11-22 [facility] 1.2.840.114 [id number] Univers 08:17:15 08:17:15 Encounter Qiangjun [place] 350.1.13.10 ity of [place] 4.2.7.2.686 [facility] [phone] [address] 2022-11-22 2022-11-22 [facility] 1.2.840.114 [id number] Univers 08:16:35 08:16:35 Encounter Qiangjun [place] 350.1.13.10 ity of [place] 4.2.7.2.686 [facility] [phone] [address] 2022-11-22 2022-11-22 Outpatient R [facility] [id number] Univers 08:15:51 08:15:51 QIANGJUN ity o f [facility] 2022-11-22 2022-11-22 [facility] 1.2.840.114 [id number] Univers 08:15:51 08:15:51 Encounter Qiangjun [place] 350.1.13.10 ity of [place] 4.2.7.2.686 [facility] [id number] [address] 2022-11-22 2022-11-22 Orders Doctor LING 1.2.840.114 [id number] Univers 00:00:00 00:00:00 Only Unassigned, [place] 350.1.13.10 ity of [facility] 4.2.7.2.686 Asael as [phone] [address] 2022-11-22 2022-11-22 Telephone Bethany [facility] 1.2.840.114 10 [id number] Univers 00:00:00 00:00:00 Elin SARABIA 350.1.13.10 it y of [facility] 4.2.7.2.686 Asael as CHANCE?BLEA [phone] Ri dickurtis PAZ 198 [facility] OFFICE [facility] 2022-11-08 2022-11-08 [facility] [id number] Univers 09:20:00 09:37:14 DANIELLESTEPHANIE danii o f [facility] 2022-11-08 2022-11-08 Office [facility] 1.2.840.114 [id number] Univers 09:20:00 09:37:14 Visit India [place] 350.1.13.10 ity of [place] 4.2.7.2.[place] [phone] Ri dical NAL 059 [facility] 2022-11-04 2022-11-04 Telephone [facility] 1.2.464.539 [id number] [id number] Univers 00:00:00 00:00:00 Jonathan Kelsey [facility] 350.1.13.10 it y of [place] 4.2.7.2.686 Asael as CHANCE?BLEA [phone] Ri stephany PAZ [address] [place] [address] 2022-11-02 2022-11-02 Outpatient R BETHANY [facility] [id number] Univers 13:00:00 14:32:28 ELIN castrodarius [facility] 2022-11-02 2022-11-02 Office Jonathan Kennedy [facility] 1.2.840.114 [id number] Univers 13:00:00 13:15:00 Visit Elin Sims 350.1.13.10 ity of [facility] 4.2.7.2.686 Asael as CHANCE?BLEA [phone] Ri dical JACKSON 198 [facility] 2022-11-02 2022-11-02 Orders Doctor LING 1.2.840.114 [id number] 178 [facility] 00:00:00 00:00:00 Only Unassigned[place] 350.1.13.10 ity of [place] [facility] 4.2.7.2.686 Asael as [phone] [place] [address] [place] 2022-10-25 2022-10-27 Emergency Elan Wild. 1.2.840.1 104 [id number] Methodi 11:19:00 12:45:00 VivAlissa thorntonbeth Murillo 56821.1.[address] 3.430.2.7 Hospit a .3.521828 l .8 2022-10-25 2022-10-27 [facility] 1.2.840.1 104 [id number] Methodi 11:19:00 12:45:00 Alissa Abbottbeth Murillo 09549.1.[address] 3.430.2.7 Hospit a .3.831933 l .8 2022-10-25 2022-10-25 Travel 1.2.840.1 1.2.734.296 2071 [id number] Methodi 00:00:00 00:00:[address] 3.430.2.7 0.2.7.3.698 Ho spita .3.590568 084.8 l .8 2022-10-25 2022-10-25 Travel 1.2.840.1 1.2.407.881 2885 144134 Methodi 00:00:00 00:00:[address] 3.430.2.7 0.2.7.3.698 Ho spita .3.503266 084.8 l .8 2022-04-29 2022-04-29 Office Elana, 1.2.840.1 [id number] 8897 Methodi 09:00:00 09:17:07 Visit Liss 18609.1.[address] Conti 3.430.2.7 Hospit a .3.482191 l .8 2022-04-29 2022-04-29 Office Elana, 1.2.840.1 [id number] 3309 Methodi 09:00:00 09:17:07 Visit Liss 20142.1.[address] Conti 3.430.2.7 Hospit a .3.166086 l .8 2022-04-29 2022-04-29 Outpatient ELANA [facility] [id number] [address] [place] 00:00:00 00:00:00 LISS [address] 2022-04-29 2022-04-29 Outpatient ELANA [facility] [id number] [address] [place] 00:00:00 00:00:00 LISS [address] 2022-04-29 2022-04-29 Travel 1.2.840.1 1.2.287.260 8024 [id number] Methodi 00:00:00 00:00:[address] 3.430.2.7 0.2.7.3.698 Ho spita .3.674830 084.8 l .8 2022-04-29 2022-04-29 Travel 1.2.840.1 1.2.930.269 5762 069129 Methodi 00:00:00 00:00:[address] 3.430.2.7 0.2.7.3.698 Ho spita .3.949060 084.8 l .8 2022-04-13 2022-04-[address] [facility] 916394- 202 [facility]oted 00:00:00 00:00:00 [address] [facility] l [facility] 2022-04-11 2022-04-11 Orders Doctor SUSHIL 1.2.840.114 [id number] Univers 00:00:00 00:00:00 Only Unassigned[place] 350.1.13.10 ity of [place] [facility] 4.2.7.2.686 Asael as [phone] [address] 2022-03-11 2022-03-11 Outpatient Cj KENNEDY [facility] [id number] Univers 10:00:00 10:09:02 JONATHAN foy [facility] 2022-03-11 2022-03-11 Office [facility] 1.2.840.114 [id number] Univers 10:00:00 10:09:02 Visit [facility] HEALTH 350.1.13.10 it y of [place] 4.2.7.2.686 Asael as CHANCE?BLEA [phone] Ri stephany PAZ 198 [facility] OFFICE [facility] 2022-03-03 2022-03-03 Office [facility] 1.2.840.114 [id number] Univers 10:00:00 10:15:00 Visit Jonathan S HEALTH 350.1.13.10 it y of [place] 4.2.7.2.686 Asael as CHANCE?BLEA [phone] Ri stephany PAZ [address] [place] [address] OFFICE [facility] 2022-03-03 2022-03-03 Outpatient [facility] [id number] Univers 10:00:00 10:00:00 [facility] 2022-03-02 2022-03-02 Telephone [facility] 1.2.747.433 [id number] [id number] Univers 00:00:00 00:00:00 [facility] HEALTH 350.1.13.10 it y of [place] 4.2.7.2.686 Asael as CHANCE?BLEA [phone] Ri stephany PAZ [address] [place] [address] OFFICE [facility] 2022-02-24 2022-02-24 Office [facility] 1.2.840.114 [id number] Univers 14:30:00 14:45:00 Visit [facility] HEALTH 350.1.13.10 it y of [place] 4.2.7.2.686 Asael as CHANCE?BLEA [phone] Ri stephany PAZ [address] [place] [address] OFFICE [facility] 2022-02-24 2022-02-24 [facility] [id number] Univers 14:30:00 14:30:00 [facility] 2022-02-24 2022-02-24 Outpatient R [facility] [id number] Univers 14:30:00 14:30:00 [facility] 2022-02-16 2022-02-16 Office [facility] 1.2.840.114 [id number] Univers 15:45:00 16:00:00 Visit [facility] 350.1.13.10 it y of [place] 4.2.7.2.686 Asael as CHANCE?BLEA [phone] Ri stephany PAZ [address] [place] [address] MEDICAL OFFICE [facility] 2022-02-16 2022-02-16 Outpatient R [facility] [id number] Univers 15:45:00 15:45:00 [facility] 2022-02-02 2022-02-02 Transcribe Viv, 1.2.840.1 [id number] Methodi 00:00:00 00:00:00 [place] [address] 3.430.2.7 Hospit a .3.561648 l .8 2022-01-10 2022-01-10 [facility] [id number] Univers 14:00:00 14:00[facility]00 [facility] 2021-12-28 2021-12-28 [facility] [id number] Univers 14:15:00 15:34:20 [facility] 2021-12-28 2021-12-28 Office [facility] 1.2.840.114 [id number] Univers 14:15:00 15:34:20 Visit [facility] 350.1.13.10 it y of [place] 4.2.7.2.686 Asael as CHANCE?BLEA [phone] Ri stephany PAZ [address] [place] [address] OFFICE [facility] 2021-12-27 2021-12-27 Office [facility] 1.2.840.114 [id number] Univers 16:00:00 16:15:00 Visit [facility] 350.1.13.10 it y of [place] 4.2.7.2.686 Asael as CHANCE?BLEA [phone] Ri stephany PAZ [address] [place] [address] OFFICE [facility] 2021-12-27 2021-12-27 [facility] [id number] Univers 16:00:00 16:00:00 [facility] 2021-12-27 2021-12-27 Outpatient R [facility] [id number] Univers 16:00:00 16:00:00 JONATHAN foy [facility] 2021-12-27 2021-12-27 Orders Doctor SUSHIL 1.2.840.114 [id number] Univers 00:00:00 00:00:00 Only [place]assigned[place] 350.1.13.10 ity of [place] [facility] 4.2.7.2.686 Asael as [phone] [facility] 009 [place] 2021-09-06 2021-09-06 Emergency X [facility] ERT [id number] Univers 16:46:00 19:27:00 LIGIA foy [facility] 2021-09-06 2021-09-06 [facility] 1.2.840.114 [id number] Univers 16:46:00 19:27:00 [facility] 350.1.13.10 i ty 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 Lab, Ang - Db [facility] 1.2.840.1 14 [id number] Univers 08:26:55 08:41:55 Visit Elin Sims [facility] 350.1.13.10 ity [facility] 4.2.7.2.686 Asael as CHANCE?BLEA [phone] Ri stephany PAZ 353 [place] MEDICAL OFFICE [facility] 2021-06-04 2021-06-04 [facility] [id number] Univers 08:15:00 08:31:31 ELIN foy [facility] 2021-06-04 2021-06-04 Office Jonathan Kennedy S [facility] 1.2.840.114 [id number] Univers 07:20:36 08:31:31 Visit Elin Sims [facility] 350.1.13.10 ity of [place] 4.2.7.2.686 Asael as CHANCE?BLEA [phone] Ri stephany [facility] 198 [place] MEDICAL OFFICE [facility] 2021-06-04 2021-06-04 Outpatient R BETHANY [facility] [id number] Univers 08:15:00 08:15:00 ELIN foy [facility] 2021-05-13 2021-05-16 Inpatient NADYA [facility] [id number] [place] [address] 00:00:00 00:00:00 JUNG [address]seca[address] 2021-05-10 2021-05-10 Emergency [facility] 1.2.965.235 [id number] [id number] Univers 12:57:00 14:11:00 Luis Carlos [place] 350.1.13.10 i ty of [place] 4[place]2.7.2.686 [place] [phone] [place] 378824 [place] 2021-03-24 2021-03-24 [facility] 1.2.840.114 [id number] 681 Univers 15:55:00 23:59:00 Encounter [facility] 350.1.13.10 ity of [place] 4.2.7.2.686 Asael as Chance?Blea [phone] Ri herberkurtis jackson 809 [place] [facility] 2021-03-24 2021-03-24 Office [facility] 1.2.840.114 [id number] Univers 15:44:05 15:59:05 Visit [facility] 350.1.13.10 it y of [place] 4.2.7.2.686 Asael as Chance?Blea [phone] Ri herberkurtis [facility] 198 [place] [facility] 2021-03-24 2021-03-24 Outpatient Cj KENNEDY [facility] [id number] Univers 15:15:00 15:15:00 JONATHAN foy [facility] 2021-03-12 2021-03-12 Outpatient Cj SIMS [facility] [id number] Univers 09:00:00 09:00:00 ELIN foy [facility] 2021-03-11 2021-03-11 Outpatient Cj SIMS [facility] [id number] Univers 08:45:00 08:45:00 ELIN foy [facility] 2021-02-25 2021-02-25 Outpatient MADELEINE SON [facility] 10 [id number] Univers 10:00:00 10:00:00 MADELEINE SEBASTIAN i ty of [facility] 2021-01-22 2021-01-24 Outpatient VIV [facility] 064 [id number] 4656 [place] 00:00:00 00:00:00 SARAH [address] 2020-12-21 2020-12-21 Emergency [facility] 1.2.840.114 [id number] Univers 18:08:00 21:05:00 Nallely Hdez 350.1.13.10 ity of [place] 4.2.7.2.686 [facility] [phone] [address] 2020-12-10 2020-12-12 Inpatient VIV [facility] [id number] 471 [place] 00:00:00 00:00:00 SARAH [address] 2020-11-05 2020-11-05 [facility] [id number] Univers 09:15:00 09:15:00 ELIN foy [facility] 2020-11-05 2020-11-[address] [facility] 1.2.294.188 3084 8300 [facility] 08:38:47 09:10:24 Visit Elin Crespo [facility] 350.1.13.10 it y of Surgical 4.2.7.2.686 Asael as Specialti [phone] Ri dical es 198 [facility] 2020-11-05 2020-11-[address] [facility] 1.2.840.114 [id number] Univers 00:00:00 00:00:00 Elin Crespo [facility] 350.1.13.10 it y of Surgical 4.2.7.2.686 Asael as Specialti [phone] Ri dical es 198 [facility] 2020-11-03 2020-11-03 Emergency [facility] 1.2.414.301 [id number] [id number] Univers 11:55:00 15:49:00 Luis Carlos Hdez 350.1.13.10 i ty of [place] 4.2.7.2.686 [facility] [phone] [place] 378824 [place] 2020-10-28 2020-10-28 Outpatient Raju_P [facility] [id number] 021 [place] 11:38:00 11:38:00 0414 [facility] 2020-02-28 2020-02-[address] [facility] 1.2.840.114 [id number] [facility] 00:00:00 00:00:00 Elin Crespo Health 350.1.13.10 it y of Surgical 4.2.7.2.686 Asael as Specialti [phone] Ri dical es 198 [facility] 2020-02-28 2020-02-[address] [facility] 1.2.840.114 [id number] 00:00:00 00:00:00 Elin Crespo Health 350.1.13.10 Surgical 4.2.7.2.686 Specialti [id number] es [address] [place] [address] 2020-02-27 2020-02-27 [facility] 1.2.840.114 [id number] [facility] 08:32:08 23:59:00 Encounter Elin Crespo Health 350.1.13.10 ity of Surgical 4.2.7.2.686 Asael as Specialti [phone] Ri dical es 809 [facility] 2020-02-27 2020-02-27 [facility] 1.2.840.114 774 [id number] 08:32:08 23:59:00 Encounter Elin Crespo Health 350.1.13.10 Surgical 4.2.7.2.686 Specialti [id number] es 809 [place] 2020-02-27 2020-02-27 [facility] [id number] [facility] 09:00:00 09:00:00 ELIN ity of [facility] 2020-02-27 2020-02-[address] [facility] 1.2.928.469 [id number] 8649 [facility] 08:10:32 08:49:41 Visit Elin Crespo Health 350.1.13.10 it y of Surgical 4.2.7.2.686 Asael as Specialti [phone] Ri dical es 198 [facility] 2020-02-27 2020-02-[address] 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 2019-10-31 2019-10-31 Outpatient R MUSA TURNER [facility] [id number] Univers 07:45:00 07:45:[address] [facility] 2019-10-31 2019-10-31 Orders Doctor SUSHIL 1.2.840.114 [id number] Univers 00:00:00 00:00:00 Only Unassigned[place] 350.1.13.10 ity of [place] [facility] 4.2.7.2.686 Asael as [phone] [address] Results Test Description Test Time Test Comments Results Result Comments Source ECG 12 lead 2022-10-26 21:49:33 Test Item Value Reference Range Interpretation Comme nts Ventricular rate (test code = 253) 68 Atrial rate (test code = 255) 68 KS interval (test code = 266) 148 QRSD [...] of 25-OCT-2022 16:44,-No significant change was found- [facility] [id number] 21:49:33 Test Item Value Reference Range Interpretation Comments Ventricular rate (test 68 code = 253) Atrial rate (test code 68 = 255) KS interval (test code 148 = 266) QRSD interval (test 80 code = 260) QT interval (test code 432 = 264) QTC interval (test code 459 = 265) P axis 1 (test code = 55 267) QRS axis 1 (test code = 72 268) T wave axis (test code 53 = 270) EKG impression (test Normal sinus code = 273) rhythm-Normal ECG-In automated comparison with ECG of 25-OCT-2022 16:44,-No significant change was found- [facility] virus A and B [id number] 13:05:12 Test Item Value Reference Range Interpretation Comments SARS-CoV-2 (COVID-19) RNA Not detected [Presence] in Respiratory specimen by NIVIA with probe detection (test code = 96264-4) Whether patient resides in a No congregate care setting (test code = 27866-4) Date and time of symptom onset Unknown (test code = 61746-7) Whether the patient was No hospitalized for condition of interest (test code = 04079-5) Whether the patient was admitted No to intensive care unit (ICU) for condition of interest (test code = 91834-1) Whether patient is employed in a No healthcare setting (test code = 10259-0) Whether the patient has symptoms No related to condition of interest (test code = 61520-0) status (test code = No 03082-0) [facility] ([facility]OVID[facility]19) RNA [Presence] in Respiratory specimen by NIVIA with probe [id number] 02:03:05 Test Item Value Reference Range Interpretation Comments SARS-CoV-2 (COVID-19) RNA Not detected Not-Detected [Presence] in Respiratory specimen by NIVIA with probe detection (test code = 99603-7) Whether patient is employed in a healthcare setting (test code = 62862-1) Whether the patient has symptoms related to condition of interest (test code = 96041-0) Patient was hospitalized because of this condition (test code = 83171-0) Whether the patient was admitted to intensive care unit (ICU) for condition of interest (test code = 80042-3) Whether patient resides in a congregate care setting (test code = 80158-0) [facility]-CoV-[facility] (COVID-19) RNA [Presence] in Respiratory specimen by NIVIA with probe [id number] 20:51:54 Test Item Value Reference Range Interpretation Comments SARS-CoV-2 (COVID-19) RNA Not detected Not-Detected [Presence] in Respiratory specimen by NIVIA with probe detection (test code = 77299-7) Whether patient is employed in a healthcare setting (test code = 13273-7) Whether the patient has symptoms related to condition of interest (test code = 30352-4) Patient was hospitalized because of this condition (test code = 09993-5) Whether the patient was admitted to intensive care unit (ICU) for condition of interest (test code = 41018-6) Whether patient resides in a congregate care setting (test code = 56644-1) [facility]-CoV-2 (COVID-19) RNA [Presence] in Respiratory specimen by NIVIA with probe [id number] 22:15:41 Test Item Value Reference Range Interpretation Comments SARS-CoV-2 (COVID-19) RNA Not detected Not-Detected [Presence] in Respiratory specimen by NIVIA with probe detection (test code = 97001-5) Whether patient is employed in a healthcare setting (test code = 57067-1) Whether the patient has symptoms related to condition of interest (test code = 82411-3) Patient was hospitalized because of this condition (test code = 73382-2) Whether the patient was admitted to intensive care unit (ICU) for condition of interest (test code = 85516-5) Whether patient resides in a congregate care setting (test code = 71790-2) [facility]-CoV-2 (COVID-19) RNA [Presence] in Respiratory specimen by NIVIA with probe [id number] 19:37:15 Test Item Value Reference Range Interpretation Comments SARS-CoV-2 (COVID-19) RNA Not detected Not-Detected [Presence] in Respiratory specimen by NIVIA with probe detection (test code = 46219-0) Whether patient is employed in a healthcare setting (test code = 71430-6) Whether the patient has symptoms related to condition of interest (test code = 84519-2) Patient was hospitalized because of this condition (test code = 01440-4) Whether the patient was admitted to intensive care unit (ICU) for condition of interest (test code = 73619-6) Whether patient resides in a congregate care setting (test code = 76853-6) [facility] [place]
--- NOTE | 2023-04-21 18:13 | RAD REPORT ---
EXAM DESCRIPTION: RADIvyt Pa And Lat (2 Views)04/21/2023 6:05 pm CLINICAL HISTORY: Cough COMPARISON: 2021 FINDINGS: Small bilateral nodular opacities are unchanged. Lungs appear clear acute infiltrate. Lungs are hyperaerated. Heart is normal size
--- NOTE | 2023-04-21 18:46 | EDPHYS ---
Physician Documentation [facility] Name: Veronica Hannah Age: 73 yrs Sex: Female : 1950 Arrival Date: 04/21/2023 Time: 17:36 Bed 9 Private MD: ED Physician Porter Sahni HPI: 04/21 17:49 This 73 yrs old Female presents to ER via Wheelchair with complaints of Cough, sb4 Congestion. 17:49 The patient or guardian reports cough, that is intermittent, with productive sputum, sb4 that is green, that is white. Onset: The symptoms/episode began/occurred 3 day(s) ago. Modifying factors: The symptoms are alleviated by nothing, the symptoms are aggravated by nothing. Associated signs and symptoms: Pertinent positives: rhinorrhea, sore throat, Pertinent negatives: chest pain, diarrhea, fever, vomiting. The patient has not experienced similar symptoms in the past. The patient has not recently seen a physician. Historical: - Allergies: 17:46 No Known Drug Allergies; hb - PMHx: 17:46 Asthma; breast cancer; Cerebral Palsy; Hypertension; Hypothyroidism; hb - PSHx: 17:46 B mastectomy; L eye SX; hb - Immunization history:: Client reports receiving the 2nd dose of the Covid vaccine. - Social history:: Smoking status: unknown. ROS: 17:49 Constitutional: Negative for fever, chills, and weight loss, sb4 17:49 ENT: Positive for sinus congestion, sore throat, 17:49 Respiratory: Positive for cough, 17:49 All other systems are negative, Exam: 17:49 Constitutional: This is a well developed, well nourished patient who is awake, alert, sb4 and in no acute distress. Head/Face: Normocephalic, atraumatic. Eyes: Extra-ocular motions intact. Periorbital areas with no swelling, redness, or edema. ENT: Mucous membranes moist. Cardiovascular: Regular rate and rhythm with a normal S1 and S2. Respiratory: Lungs have equal breath sounds bilaterally, clear to auscultation and percussion. No rales, rhonchi or wheezes noted. No increased work of breathing, no retractions or nasal flaring. Abdomen/GI: Soft, non-tender, no distension. Skin: Warm, dry with normal turgor. Normal color with no rashes, no lesions, and no evidence of cellulitis. MS/ Extremity: Pulses equal, no cyanosis. Neurovascular intact. Full, normal range of motion. Neuro: Awake and alert, GCS 15, oriented to person, place, time, and situation. Motor strength 5/5 in all extremities. Sensory grossly intact. Vital Signs: 17:43 BP 134 / 69; Pulse 86; Resp 17; Temp 98.8(TE); Pulse Ox 97% on R/A; Weight 56.7 kg; hb Height 4 ft. 11 in. ; 17:43 Body Mass Index 25.25 (56.70 kg, 149.86 cm) hb MDM: 17:41 Patient medically screened. sb4 17:49 Differential Diagnosis: Bronchitis Influenza Upper Respiratory Infection Asthma sb4 Exacerbation Viral Syndrome Pneumonia Other covid. 04/22 02:06 Data reviewed: vital signs, nurses notes, lab test result(s), radiologic studies, and sb4 as a result, I will discharge patient. Counseling: I had a detailed discussion with the patient and/or guardian regarding the historical points, exam findings, and any diagnostic results supporting the discharge/admit diagnosis, lab results, radiology results, to return to the emergency department if symptoms worsen or persist or if there are any questions or concerns that arise at home. 04/21 17:49 Order name: COVID-19 SARS RT PCR; Complete Time: 18:39 sb4 04/21 17:49 Order name: Flu; Complete Time: 18:22 sb4 04/21 17:49 Order name: Chest Pa And Lat (2 Views) XRAY; Complete Time: 18:14 sb4 Administered Medications: 04/21 17:55 Drug: Tussionex Pennkinetic ER PO Suspension 5 ml PO once Route: PO; ap3 19:04 Follow up: Response: No adverse reaction; Pain is decreased ap3 Disposition: 20:37 Co-signature as Attending Physician, Porter Sahni MD I reviewed the patient's care rn provided by the Advanced Practice Provider and agree with the diagnosis and treatment plan. Disposition Summary: 04/21/23 18:46 Discharge Ordered Notes: Location: Home sb4 Problem: an ongoing problem sb4 Symptoms: have improved sb4 Condition: Stable sb4 Diagnosis - Acute upper respiratory infection, unspecified sb4 - Acute bronchitis, unspecified sb4 Followup: sb4 - With: Emergency Department - When: As needed - Reason: Trouble breathing, Worsening of condition Discharge Instructions: - Discharge Summary Sheet sb4 - Acute Bronchitis, Adult sb4 - Upper Respiratory Infection, Adult, [id number] sb4 Forms: - Medication Reconciliation Form sb4 - Thank You Letter sb4 - Antibiotic Education sb4 - Prescription Opioid Use sb4 - Patient Portal Instructions sb4 - Leadership Thank You Letter sb4 Prescriptions: - azithromycin 250 mg Oral tablet - take 1 dose pack ORAL route as directed on dose pack For 250 mg dose pack: take sb4 500 mg today (day 1), then 250 mg for 4 days (days 2-5); 1 Pack; Refills: 0, Product Selection Permitted - promethazine-DM 6.25-15 mg/5 mL Oral syrup - administer 5 milliliter ORAL route every 4 to 6 hours as needed for cough; sb4 DNExceed 4 doses/24h; 100 milliliter; Refills: 0, Product Selection Permitted Signatures: Dispatcher [employer] EDPorter López MD MD rn Baxter, Heather, RN RN hb Prokisch, Amanda, RN RN Lori Milian, PAGely PAGely sb4
--- NOTE | 2023-04-21 18:46 | ER ---
Nurse's Notes [facility] Name: Veronica Hannah Age: 73 yrs Sex: Female : 1950 Arrival Date: 04/21/2023 Time: 17:36 Bed 9 Private MD: Diagnosis: Acute upper respiratory infection, unspecified;Acute bronchitis, unspecified Presentation: 04/21 17:43 Chief complaint: Cough, congestion, and sore throat x 3-4 days. Coronavirus screen: hb Client presents with at least one sign or symptom that may indicate coronavirus-19. Provider contacted for isolation considerations. Ebola Screen: No symptoms or risks identified at this time. Initial Sepsis Screen: Does the patient meet any 2 criteria? No. Patient's initial sepsis screen is negative. Does the patient have a suspected source of infection? No. Patient's initial sepsis screen is negative. Risk Assessment: Do you want to hurt yourself or someone else? Patient reports no desire to harm self or others. Onset of symptoms was April 17, 2023. 17:43 Method Of Arrival: Wheelchair 17:43 Acuity: BALJIT 4 Triage Assessment: 19:02 General: Appears in no apparent distress. Behavior is calm, cooperative, appropriate ap3 for age. Pain: Denies pain. EENT: No signs and/or symptoms were reported regarding the EENT system. Neuro: Level of Consciousness is awake, alert, obeys commands, Oriented to person, place, time, situation. Cardiovascular: Patient's skin is warm and dry. Respiratory: Airway is patent Respiratory effort is even, unlabored, Respiratory pattern is regular, symmetrical, Breath sounds are clear. Historical: - Allergies: 17:46 No Known Drug Allergies; hb - PMHx: 17:46 Asthma; breast cancer; Cerebral Palsy; Hypertension; Hypothyroidism; hb - PSHx: 17:46 B mastectomy; L eye SX; hb - Immunization history:: Client reports receiving the 2nd dose of the Covid vaccine. - Social history:: Smoking status: unknown. Screenin:[facility] ED Fall Risk Assessment (Adult) History of falling in the last 3 months, ap3 including since admission Yes- single mechanical fall (1 pt) Confusion or Disorientation No (0 pts) Intoxicated or Sedated No (0 pts) Impaired Gait Yes (1 pt) Mobility Assist Device Used Yes (1 pt). Abuse screen: Denies threats or abuse. Nutritional screening: No deficits noted. Tuberculosis screening: No symptoms or risk factors identified. Vital Signs: 17:43 BP 134 / 69; Pulse 86; Resp 17; Temp 98.8(TE); Pulse Ox 97% on R/A; Weight 56.7 kg; hb Height 4 ft. 11 in. ; 17:43 Body Mass Index 25.25 (56.70 kg, 149.86 cm) ED Course: 17:39 Patient arrived in ED. mr 17:40 Lori Marinelli PA-C is PHCP. sb4 17:40 Porter Sahni MD is Attending Physician. sb4 17:46 Triage completed. hb 17:46 Arm band placed on. 17:47 Fabienne Gadruno, NICOLA is Primary Nurse. ap3 17:56 Flu Sent. iw 17:56 COVID-19 SARS RT PCR Sent. iw 18:07 Chest Pa And Lat (2 Views) XRAY In Process Unspecified. EDMS 19:03 Patient has correct armband on for positive identification. Provided Education on: ap3 discharge instructions. 19:03 No provider procedures requiring assistance completed. Patient did not have IV access ap3 during this emergency room visit. Administered Medications: 17:55 Drug: Tussionex Pennkinetic ER PO Suspension 5 ml PO once Route: PO; ap3 19:04 Follow up: Response: No adverse reaction; Pain is decreased ap3 Medication: 19:02 VIS not applicable for this client. ap3 Outcome: 18:46 Discharge ordered by MD. sb4 19:03 Discharged to home ambulatory, with family, ap3 19:03 Condition: good 19:03 Discharge instructions given to patient, family, Instructed on discharge instructions, follow up and referral plans. medication usage, Demonstrated understanding of instructions, follow-up care, medications, Prescriptions given X 2, 19:05 Patient left the ED. ap3 Signatures: Dispatcher [employer] EDVA DurbinVeronica, Christian Reg Flora Mcwilliams, NICOLA PETERSEN Maritza Masters RN RN Fabienne Garduno RN RN ap3 Lori Marinelli PA-C PA-C sb4 Corrections: (The following items were deleted from the chart) 17:46 17:43 BP 134 / 69; Pulse 86bpm; Resp 17bpm; Pulse Ox 97% RA; Temp 98.8F Temporal; hb hb
[2023-04-21 20:03] VITALS: BP 134/69; TEMP 98.8; O2SAT 97
== END 2023-04-21 19:05 | disposition home or self-care (01) ==
LOC: ER 17:36
DX: J20.9 Acute bronchitis, unspecified (principal); J06.9 Acute upper respiratory infection, unspecified; Z20.822 Contact with and (suspected) exposure to COVID-19
CPT/HCPCS: 71046; 87635; 87804; 99283

== ENCOUNTER 2023-05-23 17:54 | Emergency (ER) | payer OTHER ==
--- OUTSIDE RECORDS SUMMARY | 2023-05-23 18:05 | XMS REPORT | Continuity of Care Document ---
:1950 Author Organization [facility] t Address [address] [place] [address] [address] [place] [address] Care Team Providers Name Role Phone Nicola KENDRICK, Serena Primary Care Physician Elin Sims MD Attending Clinician Doctor Unassigned, [place] Attending Clinician Unavailable Jonathan Benson Attending Clinician JONATHAN KENNEDY Attending Clinician Unavailable Nuzhat Godfrey LMSW Attending Clinician Unavailable KATIANA ALVARADO Attending Clinician Unavailable Katiana Alvarado DO Attending Clinician Pob, [facility] Attending Clinician Unavailable Will Marinelli PTA Attending Clinician Unavailable ELIN SIMS Attending Clinician Unavailable INDIA DURANT Attending Clinician Unavailable India Durant MD Attending Clinician Junito KENDRICK, Elan Peña Attending Clinician Viv KENDRICK, Sarah Murillo Attending Clinician Elana KENDRICK, Liss Conti Attending Clinician LIGIA ADAN Attending Clinician Unavailable Ligia Armas Attending Clinician [...] Date S 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 MEDICARE PART A \T\ [id number] 1974 B 00:00:00 [employer] [id number] 2013 OUT OF NETWORK 00:00:00 [employer] [id number] 2022 (MEDICARE 00:00:00 REPLACEMENT HMO) Problems Condition [...] Univers ZOLE INGREDI 2 ity of 00:00: [place] 00 Medical Branch Aripipra Propensi Active Anxiety Unive rs zole ty to 2- ity of adverse 00:00: [place] reaction 00 Medical s Branch Family History Family Member Diagnosis Comments Start Date Stop Date Source Natural sister Mental illness Method [facility] Natural sister Alcohol abuse [facility] Natural brother Alcohol abuse Method [facility] Natural brother Mental illness [facility] Natural father Heart disease [facility] Natural father Hypertension [facility] Natural mother [facility] Social History Social Habit Start Date Stop Date Quantity Comments Source History SDOH University o f Alcohol Std Drinks [place] [facility] History SDOH University o f Alcohol Binge [place] [facility] History SDOH Social Unive rsity of Connections [facility] Med ical Together Branch History SDOH Social Unive rsity of Connections [facility] Medical Branch History SDOH Social Unive rsity of Connections [place] [facility] Membership Branch History SDOH Social Unive rsity of Connections [place] [facility] Meetings [facility] Gender identity [facility] [place] [facility] Sexual orientation Method is Hospital History SDOH Social 2022-12-20 2022-12-20 5 Unive rsity of Connections Phone 00:00:00 00:00:00 [facility] edical Branch History SDOH Social 2022-12-20 2022-12-20 8 Unive rsity of Connections Living 00:00:00 00:00:00 [place] [facility] History SDOH 2022-12-20 2022-12-20 5 University o f Financial 00:00:00 00:00:00 [place] [facility] History SDOH Food 2022-12-20 2022-12-20 1 Univers ity of Worry 00:00:00 00:00:00 [place] [facility] History SDOH Food 2022-12-20 2022-12-20 1 Univers ity of Scarcity 00:00:00 00:00:00 [place] [facility] History SDOH 2022-12-20 2022-12-20 2 University o f Transport Med 00:00:00 00:00:00 [place] [facility] History SDNM 2022-12-20 2022-12-20 2 University o f Transport Non-Med 00:00:00 00:00:00 [place] M edical Branch History SDOH 2022-12-20 2022-12-20 2 University o f Housing Unable to 00:00:00 00:00:00 [place] [facility] ed[facility] Pay Branch History SDNM 2022-12-20 2022-12-20 1 University o f Housing Places 00:00:00 00:00:00 [place] Medi demar Lived Branch History SDNM 2022-12-20 2022-12-20 2 University o f Housing Homeless 00:00:00 00:00:00 [place] [facility] dical Last Year Branch History SDNM 2022-12-20 2022-12-20 1 University o f Alcohol Frequency 00:00:00 00:00:00 [facility] edical Branch Tobacco use and 2022-12-19 2022-12-19 Smokeless Universit y of exposure 00:00:00 00:00:00 tobacco non-user [place] Me dical Branch Exposure to 2022-11-26 2022-12-06 Not sure University of SARS-CoV-2 (event) 00:00:00 11:08:00 [place] [facility] History of Social 2022-10-27 2022-10-[address] function 00:00:00 00:00:00 Hospital Alcohol intake 2022-10-25 2022-10-25 Current Worship 00:00:00 00:00:00 non-drinker of Hospital alcohol (finding) Sex Ass[birth year] Worship 00:00:00 00:00:00 Hospital Smoking Status Start Date Stop Date Source Never smoked tobacco [facility] Medical Branch Medications Ordered Filled [...] by ity of tablet 13:13: mouth in [place] [address] the Medical morning. Branch montelukast 2023-0 Yes 10mg Take 1 Univ ers 10 mg 6-08 tablet by ity of tablet 13:13: mouth in [place] [address] the Medical morning. Branch montelukast 2023-0 Yes 10mg Take 1 Univ ers 10 mg 6-08 tablet by ity of tablet 13:13: mouth in [place] [address] the Medical morning. Branch montelukast 2023-0 Yes 10mg Take 1 Univ ers 10 mg 6-08 tablet by ity of tablet 13:13: mouth in [place] [address] the Medical morning. Branch montelukast 2023-0 Yes 10mg Take 1 Univ ers 10 mg 6-08 tablet by ity of tablet 13:13: mouth in [place] [address] the Medical morning. Branch montelukast 2023-0 Yes 10mg Take 1 Univ ers 10 mg 6-08 tablet by ity of tablet 13:13: mouth in [place] [address] the Medical morning. Branch montelukast 2023-0 Yes 10mg Take 1 Univ ers 10 mg 6-08 tablet by ity of tablet 13:13: mouth in [place] [address] the Medical morning. Branch montelukast 2023-0 Yes 10mg Take 1 Univ ers 10 mg 6-08 tablet by ity of tablet 13:13: mouth in [place] [address] the Medical morning. Branch montelukast 2023-0 Yes 10mg Take 1 Univ ers 10 mg 6-08 tablet by ity of tablet 13:13: mouth in [place] [address] the Medical morning. Branch montelukast 2023-0 Yes 10mg Take 1 Univ ers 10 mg 6-08 tablet by ity of tablet 13:13: mouth in [place] [address] the Medical morning. Branch montelukast 2023-0 Yes 10mg Take 1 Univ ers 10 mg 6-08 tablet by ity of tablet 13:13: mouth in [place] [address] the Medical morning. Branch montelukast 2023-0 Yes 10mg Take 1 Univ ers 10 mg 6-08 tablet by ity of tablet 13:13: mouth in [place] [address] the Medical morning. Branch montelukast 2023-0 Yes 10mg Take 1 Univ ers 10 mg 6-08 tablet by ity of tablet 13:13: mouth in [place] [address] the Medical morning. Branch montelukast 2023-0 Yes 10mg Take 1 Univ ers 10 mg 6-08 tablet by ity of tablet 13:13: mouth in [place] [address] the Medical morning. Branch montelukast 2023-0 Yes 10mg Take 1 Univ ers 10 mg 6-08 tablet by ity of tablet 13:13: mouth in [place] [address] the Medical morning. Branch montelukast 2023-0 Yes 10mg Take 1 Univ ers 10 mg 6-08 tablet by ity of tablet 13:13: mouth in [place] [address] the Medical morning. Branch montelukast 2023-0 Yes 10mg Take 1 Univ ers 10 mg 6-08 tablet by ity of tablet 13:13: mouth in [place] [address] the Medical morning. Branch montelukast 2023-0 Yes 10mg Take 1 Univ ers 10 mg 6-08 tablet by ity of tablet 13:13: mouth in [place] [address] the Medical morning. Branch montelukast 2023-0 Yes 10mg Take 1 Univ ers 10 mg 6-08 tablet by ity of tablet 13:13: mouth in [place] [address] the Medical morning. Branch montelukast 2023-0 Yes 10mg Take 1 Univ ers 10 mg 6-08 tablet by ity of tablet 13:13: mouth in [place] [address] the Medical morning. Branch montelukast 2023-0 Yes 10mg Take 1 Univ ers 10 mg 6-08 tablet by ity of tablet 13:13: mouth in [place] [address] the Medical morning. Branch montelukast 2023-0 Yes 10mg Take 1 Univ ers 10 mg 6-08 tablet by ity of tablet 13:13: mouth in [place] [address] the Medical morning. Branch montelukast 2023-0 Yes 10mg Take 1 Univ ers 10 mg 6-08 tablet by ity of tablet 13:13: mouth in [place] [address] the Medical morning. Branch montelukast 2023-0 Yes 10mg Take 1 Univ ers 10 mg 6-08 tablet by ity of tablet 13:13: mouth in [place] [address] the Medical morning. Branch montelukast 2023-0 Yes 10mg Take 1 Univ ers 10 mg 6-08 tablet by ity of tablet 13:13: mouth in [place] [address] the Medical morning. Branch montelukast 2023-0 Yes 10mg Take 1 Univ ers 10 mg 6-08 tablet by ity of tablet 13:13: mouth in [place] [address] the Medical morning. Branch montelukast 2023-0 Yes 10mg Take 1 Univ ers 10 mg 6-08 tablet by ity of tablet 13:13: mouth in [place] [address] the Medical morning. Branch montelukast 2023-0 Yes 10mg Take 1 Univ ers 10 mg 6-08 tablet by ity of tablet 13:13: mouth in [place] [address] the Medical morning. Branch montelukast 2023-0 Yes 10mg Take 1 Univ ers 10 mg 6-08 tablet by ity of tablet 13:13: mouth in [place] [address] the Medical morning. Branch montelukast 2023-0 Yes 10mg Take 1 Univ ers 10 mg 6-08 tablet by ity of tablet 13:13: mouth in [place] [address] the Medical morning. Branch montelukast 2023-0 Yes 10mg Take 1 Univ ers 10 mg 6-08 tablet by ity of tablet 13:13: mouth in [place] [address] the Medical morning. Branch montelukast 2023-0 Yes 10mg Take 1 Univ ers 10 mg 6-08 tablet by ity of tablet 13:13: mouth in [place] [address] the Medical morning. Branch vit 3-0 Yes [...] by ity of tablet 17:18: mouth in [place] 56 the Medical morning. Branch vit 2022-0 Yes 2{capsu Take 2 Univers C/E/Zn/natividad 6-06 le} capsules ity of r/lutein/ze 17:18: by mouth [place] 56 daily. Medical (PRESERVISI Branch ON AREDS-2 ORAL) montelukast 2022-0 Yes 10mg Take 1 Univ ers 10 mg 6-06 tablet by ity of tablet 17:18: mouth in [place] 56 the Medical morning. Branch FLUoxetine 2022-0 Yes 10mg 10 mg, Unive rs (PROZAC) 6-06 Oral, ity of capsule 10 14:00: DAILY, [place] mg 00 First dose Medical on [facility] 12/20/22 at 0900, Until Discontinu ed, Routine montelukast 2022-0 Yes 10mg 10 mg, Univ ers (SINGULAIR) 6-06 Oral, ity of tablet 10 14:00: DAILY, [place] mg 00 First dose Medical on [facility] 12/20/22 at 0900, Until Discontinu ed, Routine amLODIPine 2022-0 Yes 10mg 10 mg, Unive rs (NORVASC) 6-06 Oral, ity of tablet 10 14:00: DAILY, [place] mg 00 First dose Medical on [facility] 12/20/22 at 0900, Until Discontinu ed, Routine FLUoxetine 2022-0 Yes 10mg 10 mg, Unive rs (PROZAC) 6-06 Oral, ity of capsule 10 14:00: DAILY, [place] mg 00 First dose Medical on [facility] 12/20/22 at 0900, Until Discontinu ed, Routine montelukast 3-0 Yes 10mg 10 mg, Univ ers (SINGULAIR) 6-06 Oral, ity of tablet 10 14:00: DAILY, [place] mg 00 First dose Medical on [facility] 12/20/22 at 0900, Until Discontinu ed, Routine [...] by ity of tablet 09:03: mouth in [place] 48 the Medical morning. Branch HYDROcodone 2022-0 [...] mg 00 First dose Medical on [place] 12/19/22 at 1999, Until Discontinu ed, Routine hydrALAZINE 2022-0 Yes 50mg 50 mg, Univ ers (APRESOLINE - Oral, BID, it y of ) tablet 50 01:00: First dose [place] mg 00 on [facility] 12/19/22 at Branch 1999, Until Discontinu ed, Routine docusate 2022-0 Yes 100mg 100 mg, Unive rs (COLACE) 6-06 Oral, ity of capsule 100 01:00: Q12H, [place] mg 00 First dose Medical on [place] 12/19/22 at 1999, Until Discontinu ed, Routine hydrALAZINE 2022-0 Yes 50mg 50 mg, Univ ers (APRESOLINE -06 Oral, BID, it y of ) tablet 50 01:00: First dose [place] mg 00 on [facility] 12/19/22 at Branch 1999, Until Discontinu ed, Routine atorvastati 3-0 Yes 20mg 20 mg, Univ ers n (LIPITOR) 6-05 Oral, QPM, it y of tablet 20 22:00: First dose [place] mg 00 on [facility] 12/19/22 at Branch 1700, Until Discontinu ed, Routine atorvastati 2023-0 Yes 20mg 20 mg, Univ ers n (LIPITOR) 6-05 Oral, QPM, it y of tablet 20 22:00: First dose [place] mg 00 on [facility] 12/19/22 at Branch 1700, Until Discontinu ed, [...] Asael as 03 Starting Medical on [place] 12/19/22 at 1345, Until Discontinu ed, Routine, tremor benztropine 2022-0 Yes 1mg 1 mg, Unive rs (COGENTIN) 12-19 Oral, ity of tablet 1 mg 18:45: BIDPRN, As[place] as 03 Starting Medical on [place] 12/19/22 at 1345, Until Discontinu ed, Routine, tremor bupivacaine 2022-2022- No PRN, Unive rs (preserv 12-19 Starting ity of free) 16:13: 17:40 on Mon [place] (SENSORCAIN 00 :53 12/19/22 at Med ical E MPF) 0.25 1113, Branch % (2.5 Intra-op mg/mL) 30 mL, BUPivacaine liposome (PF) (EXPAREL (PF)) 1.3 % (13.3 mg/mL) 266 mg, NaCl 0.9% (NS) 70 mL sodium 2022-0 2022- No PRN, Univers chloride 12-19 Starting ity of 0.9 % 16:13: 17:40 on Mon [place] irrigation 00 :53 12/19/22 at Medi demar solution 1113, Branch Until Mon12/19/22 at 1240, Intra-op sodium 3-0 2022- No 30mL 30 mL, Univers citrate-cit 12-19 Oral, ONCE i ty of thelma acid 15:00: 14:09 NOW, [address] [place] [address] (BICITRA) 00 :00 dose, On Medica l 500-334 12/19/22 Branch mg/5 mL at 1000, solution 30 Routine mL sodium No 30mL 30 mL, Univers citrate-cit 12-19 Oral, ONCE i ty of thelma acid 15:00: 14:09 NOW, 1 [place] (BICITRA) 00 :00 dose, On Medica l 500-334 Mon12/19/22 Branch mg/5 mL at 1000, solution 30 Routine mL vit Yes 2{capsu Take 2 Univers C/E/Zn/natividad 12-19 le} capsules ity of r/lutein/ze 13:50: by mouth [place] ax[place] 17 daily. Medical (PRESERVISI Branch ON AREDS-2 ORAL) oxyCODONE-a No 2{tbl} 2 tablet, Univers cetaminophe 12-19 Oral, ity of n 12:15: 12:13 ONCE, 1 [place] (PERCOCET) 00 :00 dose, On Medic al [...] cetaminophe 12-19 ity of n 05:00: 16:59 [place] (PERCOCET) 00 :00 Medical 5-325 mg Branch per tablet 2 tablet tranexamic 2022- No 1000mg Univ ers acid 12-19 ity of (CYKLOKAPRO 05:00: 16:59 [place] N) 1,000 mg 00 :00 Medical in NaCl Branch 0.9% (NS) 250 mL piggyback oxyCODONE-a 2022- No 2{tbl} Uni vers cetaminophe 12-19 ity of n 05:00: 16:59 [place] (PERCOCET) 00 :00 Medical 5-325 mg Branch [...] N) 1,000 mg 00 :00 Medical in [facility] Branch 0.9% (NS) 250 mL piggyback aspirin 325 3-0 3- No [id number] 325mg Take 1 Univers mg tablet -11 20-04 tablet by ity of 00:00: 04:59 mouth in [place] 00 :00 the [facility] and 1 tablet in the evening. Take with meals. Do all this for 28 days. aspirin 325 2022-0 3- No [id number] 325mg Take 1 Univers mg tablet 12-19- tablet by ity of 00:00: 04:59 mouth in [place] 00 :00 the [facility] and 1 tablet in the evening. Take with meals. Do all this for 28 days. aspirin 325 2022-0 2023- No [id number] 325mg Take 1 Univers mg tablet 12-19- tablet by ity of 00:00: 04:59 mouth in [place] 00 :00 the [facility] and 1 tablet in the evening. Take with meals. Do all this for 28 days. aspirin 325 2022-0 3- No [id number] 325mg Take 1 Univers mg tablet 12-19- tablet by ity of 00:00: 04:59 mouth in [place] 00 :00 the [facility] and 1 tablet in the evening. Take with meals. Do all this for 28 days. aspirin 325 3-0 3- No [id number] 325mg Take 1 Univers mg tablet 12-19- tablet by ity of 00:00: 04:59 mouth in [place] 00 :00 the [facility] and 1 tablet in the evening. Take with meals. Do all this for 28 days. aspirin 325 3-0 3- No [id number] 325mg Take 1 Univers mg tablet 12-19-04 tablet by ity of 00:00: 04:59 mouth in [place] 00 :00 [facility] and 1 tablet in the evening. Take with meals. Do all this for 28 days. aspirin 325 3-0 2023- No [id number] 325mg Take 1 Univers mg tablet 12-19- tablet by ity of 00:00: 04:59 mouth in [place] 00 :00 the Medical morning Branch and 1 tablet in the evening. Take with meals. Do all this for 28 days. aspirin 325 3-0 2022- No [id number] 325mg Take 1 Univers mg tablet 6- 07-04 tablet by ity of 00:00: 04:59 mouth in [place] 00 :00 the Medical morning Branch and 1 tablet in the evening. Take with meals. Do all this for 28 days. aspirin 325 2022-0 2022- No [id number] 325mg Take 1 Univers mg tablet 6-11 20-04 tablet by ity of 00:00: 04:59 mouth in [place] 00 :00 the Medical morning Branch and 1 tablet in the evening. Take with meals. Do all this for 28 days. aspirin 325 2022-0 2022- No [id number] 325mg Take 1 Univers mg tablet -11 20-04 tablet by ity of 00:00: 04:59 mouth in [place] 00 :00 the Medical morning Branch and 1 tablet in the evening. Take with meals. Do all this for 28 days. aspirin 325 2022-0 2022- No [id number] 325mg Take 1 Univers mg tablet 12-19-04 tablet by ity of 00:00: 04:59 mouth in [place] 00 :00 the Medical morning Branch and 1 tablet in the evening. Take with meals. Do all this for 28 days. aspirin 325 2022-0 2022- No [id number] 325mg Take 1 Univers mg tablet 12-19- tablet by ity of 00:00: 04:59 mouth in [place] 00 :00 the Medical morning Branch and 1 tablet in the evening. Take with meals. Do all this for 28 days. aspirin 325 2022-0 2022- No [id number] 325mg Take 1 Univers mg tablet 12-19-04 tablet by ity of 00:00: 04:59 mouth in [place] 00 :00 the Medical morning Branch and 1 tablet in the evening. Take with meals. Do all this for 28 days. aspirin 325 3-0 2022- No [id number] 325mg Take 1 Univers mg tablet 6-11 20-04 tablet by ity of 00:00: 04:59 mouth in [place] 00 :00 the Medical morning Branch and 1 tablet in the evening. Take with meals. Do all this for 28 days. aspirin 325 3-0 2022- No [id number] 325mg Take 1 Univers mg tablet 6- 07-04 tablet by ity of 00:00: 04:59 mouth in [place] 00 :00 the Medical morning Branch and 1 tablet in the evening. Take with meals. Do all this for 28 days. aspirin 325 2022-0 3- No [id number] 325mg Take 1 Univers mg tablet 12-19- tablet by ity of 00:00: 04:59 mouth in [place] 00 :00 the Medical morning Branch and 1 tablet in the evening. Take with meals. Do all this for 28 days. aspirin 325 2022-0 2022- No [id number] 325mg Take 1 Univers mg tablet 12-19- tablet by ity of 00:00: 04:59 mouth in [place] 00 :00 the Medical morning Branch and 1 tablet in the evening. Take with meals. Do all this for 28 days. aspirin 325 2022-0 2022- No [id number] 325mg Take 1 Univers mg tablet 12-19- tablet by ity of 00:00: 04:59 mouth in [place] 00 :00 the [facility] morning Branch and 1 tablet in the evening. Take with meals. Do all this for 28 days. aspirin 325 2022-0 2022- No [id number] 325mg Take 1 Univers mg tablet 12-19- tablet by ity of 00:00: 04:59 mouth in [place] 00 :00 the [facility] morning Branch and 1 tablet in the evening. Take with meals. Do all this for 28 days. aspirin 325 2022-0 2022- No [id number] 325mg Take 1 Univers mg tablet 12-19 tablet by ity of 00:00: 04:59 mouth in [place] 00 :00 the [facility] morning Branch and 1 tablet in the evening. Take with meals. Do all this for 28 days. aspirin 325 2022-0 3- No [id number] 325mg Take 1 Univers mg tablet 12-19- tablet by ity of 00:00: 04:59 mouth in [place] 00 :00 the Medical morning Branch and 1 tablet in the evening. Take with meals. Do all this for 28 days. aspirin 325 3-0 3- No [id number] 325mg Take 1 Univers mg tablet 12-19-04 tablet by ity of 00:00: 04:59 mouth in [place] 00 :00 the Medical morning Branch and 1 tablet in the evening. Take with meals. Do all this for 28 days. aspirin 325 3-0 3- No [id number] 325mg Take 1 Univers mg tablet 12-19-04 tablet by ity of 00:00: 04:59 mouth in [place] 00 :00 the Medical morning Branch and 1 tablet in the evening. Take with meals. Do all this for 28 days. aspirin 325 3-0 3- No [id number] 325mg Take 1 Univers mg tablet 12-19-04 tablet by ity of 00:00: 04:59 mouth in [place] 00 :00 the [facility] morning Branch and 1 tablet in the evening. Take with meals. Do all this for 28 days. aspirin 325 3-0 2022- No [id number] 325mg Take 1 Univers mg tablet 12-19- tablet by ity of 00:00: 04:59 mouth in [place] 00 :00 the [facility] morning Branch and 1 tablet in the evening. Take with meals. Do all this for 28 days. aspirin 325 2022-0 2022- No [id number] 325mg Take 1 Univers mg tablet 12-19- tablet by ity of 00:00: 04:59 mouth in [place] 00 :00 the [facility] morning Branch and 1 tablet in [...] by ity of tablet 11:04: mouth in [place] [address] the Medical morning. [place] montelukast 0 Yes 10mg Take 1 Univ ers 10 mg 5-23 tablet by ity of tablet 11:04: mouth in [place] [address] the Medical morning. Branch montelukast 0 Yes 10mg Take 1 Univ ers 10 mg 5-23 tablet by ity of tablet 11:04: mouth in [place] [address] the Medical morning. Branch montelukast 0 Yes 10mg Take 1 Univ ers 10 mg 5-23 tablet by ity of tablet 11:04: mouth in [place] [address] the Medical morning. Branch montelukast 0 Yes 10mg Take 1 Univ ers 10 mg 5-23 tablet by ity of tablet 11:04: mouth in [place] [address] the Medical morning. Branch vit 2022-0 Yes [...] by ity of capsule 00:00: mouth in [place] 00 the Medical morning. Branch Takes a 40 mg and a 10 mg for a total of 50 mg daily FLUoxetine 2023-0 Yes 10mg Take 1 Unive rs 10 mg 5-11 capsule by ity of capsule 00:00: mouth in [place] the Medical morning. Branch Takes a 40 mg and a 10 mg for a total of 50 mg daily FLUoxetine 2023-0 Yes 10mg Take 1 Unive rs 10 mg 5-11 capsule by ity of capsule 00:00: mouth in [place] the Medical morning. Branch Takes a 40 mg and a 10 mg for a total of 50 mg daily FLUoxetine 2023-0 Yes 10mg Take 1 Unive rs 10 mg 5-11 capsule by ity of capsule 00:00: mouth in [place] the Medical morning. Branch Takes a 40 mg and a 10 mg for a total of 50 mg daily FLUoxetine 2023-0 Yes 10mg Take 1 Unive rs 10 mg 5-11 capsule by ity of capsule 00:00: mouth in [place] 00 the Medical morning. Branch Takes a 40 mg and a 10 mg for a total of 50 mg daily FLUoxetine 2023-0 Yes 10mg Take 1 Unive rs 10 mg 5-11 capsule by ity of capsule 00:00: mouth in [place] 00 the Medical morning. Branch Takes a 40 mg and a 10 mg for a total of 50 mg daily FLUoxetine 2023-0 Yes 10mg Take 1 Unive rs 10 mg 5-11 capsule by ity of capsule 00:00: mouth in [place] the morning. Branch Takes a 40 mg and a 10 mg for a total of 50 mg daily FLUoxetine 2023-0 Yes 10mg Take 1 Unive rs 10 mg 5-11 capsule by ity of capsule 00:00: mouth in [place] the morning. Branch Takes a 40 mg and a 10 mg for a total of 50 mg daily FLUoxetine 2023-0 Yes 10mg Take 1 Unive rs 10 mg 5-11 capsule by ity of capsule 00:00: mouth in [place] the morning. Branch Takes a 40 mg and a 10 mg for a total of 50 mg daily FLUoxetine 2023-0 Yes 10mg Take 1 Unive rs 10 mg 5-11 capsule by ity of capsule 00:00: mouth in [place] the morning. Ortega Takes a 40 mg and a 10 mg for a total of 50 mg daily FLUoxetine 2023-0 Yes 10mg Take 1 Unive rs 10 mg 5-11 capsule by ity of capsule 00:00: mouth in [place] the morning. [place] Takes a 40 mg and a 10 mg for a total of 50 mg daily FLUoxetine 2023-0 Yes 10mg Take 1 Unive rs 10 mg 5-11 capsule by ity of capsule 00:00: mouth in [place] the morning. [place] Takes a 40 mg and a 10 mg for a total of 50 mg daily FLUoxetine 2023-0 Yes 10mg Take 1 Unive rs 10 mg 5-11 capsule by ity of capsule 00:00: mouth in [place] the morning. [place] Takes a 40 mg and a 10 mg for a total of 50 mg daily FLUoxetine 2023-0 Yes 10mg Take 1 Unive rs 10 mg 5-11 capsule by ity of capsule 00:00: mouth in [place] the Medical morning. Branch Takes a 40 mg and a 10 mg for a total of 50 mg daily FLUoxetine 2023-0 Yes 10mg Take 1 Unive rs 10 mg 5-11 capsule by ity of capsule 00:00: mouth in [place] the Medical morning. Branch Takes a 40 mg and a 10 mg for a total of 50 mg daily FLUoxetine 2023-0 Yes 10mg Take 1 Unive rs 10 mg 5-11 capsule by ity of capsule 00:00: mouth in [place] the morning. Branch Takes a 40 mg and a 10 mg for a total of 50 mg daily FLUoxetine 2023-0 Yes 10mg Take 1 Unive rs 10 mg 5-11 capsule by ity of capsule 00:00: mouth in [place] the morning. Branch Takes a 40 mg and a 10 mg for a total of 50 mg daily FLUoxetine 2023-0 Yes 10mg Take 1 Unive rs 10 mg 5-11 capsule by ity of capsule 00:00: mouth in [place] the morning. Branch Takes a 40 mg and a 10 mg for a total of 50 mg daily FLUoxetine 2023-0 Yes 10mg Take 1 Unive rs 10 mg 5-11 capsule by ity of capsule 00:00: mouth in [place] the morning. Branch Takes a 40 mg and a 10 mg for a total of 50 mg daily FLUoxetine 2023-0 Yes 10mg Take 1 Unive rs 10 mg 5-11 capsule by ity of capsule 00:00: mouth in [place] the morning. Branch Takes a 40 mg and a 10 mg for a total of 50 mg daily FLUoxetine 2023-0 Yes 10mg Take 1 Unive rs 10 mg 5-11 capsule by ity of capsule 00:00: mouth in [place] the morning. Branch Takes a 40 mg and a 10 mg for a total of 50 mg daily FLUoxetine 2023-0 Yes 10mg Take 1 Unive rs 10 mg 5-11 capsule by ity of capsule 00:00: mouth in [place] the morning. Branch Takes a 40 mg and a 10 mg for a total of 50 mg daily FLUoxetine 2023-0 Yes 10mg Take 1 Unive rs 10 mg 5-11 capsule by ity of capsule 00:00: mouth in [place] the morning. Branch Takes a 40 mg and a 10 mg for a total of 50 mg daily FLUoxetine 2023-0 Yes 10mg Take 1 Unive rs 10 mg 5-11 capsule by ity of capsule 00:00: mouth in [place] the morning. Branch Takes a 40 mg and a 10 mg for a total of 50 mg daily FLUoxetine 2023-0 Yes 10mg Take 1 Unive rs 10 mg 5-11 capsule by ity of capsule 00:00: mouth in [place] the Medical morning. Branch Takes a 40 mg and a 10 mg for a total of 50 mg daily FLUoxetine 2023-0 Yes 10mg Take 1 Unive rs 10 mg 5-11 capsule by ity of capsule 00:00: mouth in [place] the Medical morning. Branch Takes a 40 mg and a 10 mg for a total of 50 mg daily FLUoxetine 2023-0 Yes 10mg Take 1 Unive rs 10 mg 5-11 capsule by ity of capsule 00:00: mouth in [place] the morning. Branch Takes a 40 mg and a 10 mg for a total of 50 mg daily FLUoxetine 2023-0 Yes 10mg Take 1 Unive rs 10 mg 5-11 capsule by ity of capsule 00:00: mouth in [place] the morning. Branch Takes a 40 mg and a 10 mg for a total of 50 mg daily FLUoxetine 2023-0 Yes 10mg Take 1 Unive rs 10 mg 5-11 capsule by ity of capsule 00:00: mouth in [place] the morning. Branch Takes a 40 mg and a 10 mg for a total of 50 mg daily FLUoxetine 2023-0 Yes 10mg Take 1 Unive rs 10 mg 5-11 capsule by ity of capsule 00:00: mouth in [place] the morning. Branch Takes a 40 mg and a 10 mg for a total of 50 mg daily FLUoxetine 2023-0 Yes 10mg Take 1 Unive rs 10 mg 5-11 capsule by ity of capsule 00:00: mouth in [place] the morning. Branch Takes a 40 mg and a 10 mg for a total of 50 mg daily FLUoxetine 2023-0 Yes 10mg Take 1 Unive rs 10 mg 5-11 capsule by ity of capsule 00:00: mouth in [place] the morning. Branch Takes a 40 mg and a 10 mg for a total of 50 mg daily FLUoxetine 2023-0 Yes 10mg Take 1 Unive rs 10 mg 5-11 capsule by ity of capsule 00:00: mouth in [place] the Medical morning. Branch Takes a 40 mg and a 10 mg for a total of 50 mg daily FLUoxetine 2023-0 Yes 10mg Take 1 Unive rs 10 mg 5-11 capsule by ity of capsule 00:00: mouth in [place] the morning. Branch Takes a 40 mg and a 10 mg for a total of 50 mg daily FLUoxetine 2023-0 Yes 10mg Take 1 Unive rs 10 mg 5-11 capsule by ity of capsule 00:00: mouth in [place] the Medical morning. Branch Takes a 40 mg and a 10 mg for a total of 50 mg daily FLUoxetine 2023-0 Yes 10mg Take 1 Unive rs 10 mg 5-11 capsule by ity of capsule 00:00: mouth in [place] the morning. Branch Takes a 40 mg and a 10 mg for a total of 50 mg daily FLUoxetine 2023-0 Yes 10mg Take 1 Unive rs 10 mg 5-11 capsule by ity of capsule 00:00: mouth in [place] the morning. Branch Takes a 40 mg and a 10 mg for a total of 50 mg daily FLUoxetine 2023-0 Yes 10mg Take 1 Unive rs 10 mg 5-11 capsule by ity of capsule 00:00: mouth in [place] the morning. Orte[place] Takes a 40 mg and a 10 mg for a total of 50 mg daily FLUoxetine 2023-0 Yes 10mg Take 1 Unive rs 10 mg 5-11 capsule by ity of capsule 00:00: mouth in [place] the morning. [place] Takes a 40 mg and a 10 mg for a total of 50 mg daily FLUoxetine 2023-0 Yes 10mg Take 1 Unive rs 10 mg 5-11 capsule by ity of capsule 00:00: mouth in [place] the morning. [place] Takes a 40 mg and a 10 mg for a total of 50 mg daily FLUoxetine 2023-0 Yes 10mg Take 1 Unive rs 10 mg 5-11 capsule by ity of capsule 00:00: mouth in [place] the . [place]te[place] Takes a 40 mg and a 10 mg for a total of 50 mg daily tc 2022- No [id number] 38.9mCi 38.9 Univ ers 99m-tetrofo 11-22 millicurie i ty of smin 16:45: 16:40 , [place] (MYOVIEW) 00 :00 Intravenou Medi demar injection s, ONCE, 1 Bran ch 38.9 dose, On millicurie Mon11/22/22 at 1145, Routine regadenoson 2022- No [id number] .4mg 0.4 mg, IV Univers (LEXISCAN) 11-22 Push, ity of injection 15:00: 16:34 [place]CE, 1 [place] 0.4 mg 00 :00 dose, On Medical Mon11/22/22 Branch at 1000, Routine
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 Take with meals. diclofenac 2023-0 Yes [id number] 75mg Take 1 Univers 75 mg EC 4-21 9109 tablet by ity of tablet 00:00: mouth in [address] morning [place] and 1 tablet in the evening. Take with meals. diclofenac 2023-0 Yes [id number] 75mg Take 1 Univers 75 mg EC 4-21 9109 tablet by ity of tablet 00:00: mouth in [place] [address] the [facility] morning [place] and 1 tablet in the evening. Take with meals. diclofenac 2023-0 Yes [id number] 75mg Take 1 Univers 75 mg EC 4-21 9109 tablet by ity of tablet 00:00: mouth in [place] [address] the [facility] morning [place] and 1 tablet in the evening. Take with meals. diclofenac 2023-0 Yes [id number] 75mg Take 1 Univers 75 mg EC 4-21 9109 tablet by ity of tablet 00:00: mouth in [address] morning [place] and 1 tablet in the evening. Take with meals. diclofenac 2023-0 Yes [id number] 75mg Take 1 Univers 75 mg EC 4-21 9109 tablet by ity of tablet 00:00: mouth in [place] [address] the [facility] morning [place] and 1 tablet in the evening. Take with meals. diclofenac 2023-0 Yes [id number] 75mg Take 1 Univers 75 mg EC 4-21 9109 tablet by ity of tablet 00:00: mouth in [address] morning [place] and 1 tablet in the evening. Take with meals. diclofenac 2023-0 Yes [id number] 75mg Take 1 Univers 75 mg EC 4-21 9109 tablet by ity of tablet 00:00: mouth in [address] morning [place] and 1 tablet in the evening. Take with meals. diclofenac 2023-0 Yes [id number] 75mg Take 1 [facility] 75 mg EC 4-21 9109 tablet by ity of tablet 00:00: mouth in [address] morning [place] and 1 tablet in the evening. Take with meals. diclofenac 2023-0 Yes [id number] 75mg Take 1 [facility] 75 mg EC 4-21 9109 tablet by ity of tablet 00:00: mouth in [address] and 1 tablet in the evening. Take with meals. diclofenac 2023-0 Yes [id number] 75mg Take 1 [facility] 75 mg EC 4-21 9109 tablet by ity of tablet 00:00: mouth in [address] and 1 tablet in the evening. Take with meals. diclofenac 2023-0 Yes [id number] 75mg Take 1 [facility] 75 mg EC 4-21 9109 tablet by ity of tablet 00:00: mouth in [address] and 1 tablet in the evening. Take with meals. diclofenac 2023-0 Yes [id number] 75mg Take 1 Univers 75 mg EC 4-21 9109 tablet by ity of tablet 00:00: mouth in [address] morning [place] and 1 tablet in the evening. Take with meals. diclofenac 2023-0 Yes [id number] 75mg Take 1 [facility] 75 mg EC 4-21 9109 tablet by ity of tablet 00:00: mouth in [address] morning [place] and 1 tablet in the evening. Take with meals. diclofenac 2023-0 Yes [id number] 75mg Take 1 [facility] 75 mg EC 4-21 9109 tablet by ity of tablet 00:00: mouth in [address] morning [place] and 1 tablet in the evening. Take with meals. diclofenac 2023-0 Yes [id number] 75mg Take 1 [facility] 75 mg EC 4-21 9109 tablet by ity of tablet 00:00: mouth in [address] morning [place] and 1 tablet in the evening. Take with meals. diclofenac 2023-0 Yes [id number] 75mg Take 1 [facility] 75 mg EC 4-21 9109 tablet by ity of tablet 00:00: mouth in [address] morning [place] and 1 tablet in the evening. Take with meals. diclofenac 2023-0 Yes [id number] 75mg Take 1 Univers 75 mg EC 4-21 9109 tablet by ity of tablet 00:00: mouth in [address] and 1 tablet in the evening. Take with meals. diclofenac 2023-0 Yes [id number] 75mg Take 1 Univers 75 mg EC 4-21 9109 tablet by ity of tablet 00:00: mouth in [address] and 1 tablet in the evening. Take with meals. diclofenac 2023-0 Yes [id number] 75mg Take 1 Univers 75 mg EC 4-21 9109 tablet by ity of tablet 00:00: mouth in [address] and 1 tablet in the evening. Take with meals. diclofenac 2023-0 Yes [id number] 75mg Take 1 Univers 75 mg EC 4-21 9109 tablet by ity of tablet 00:00: mouth in [address] and 1 tablet in the evening. Take with meals. diclofenac 2023-0 Yes [id number] 75mg Take 1 Univers 75 mg EC 4-21 9109 tablet by ity of tablet 00:00: mouth in [address] and 1 tablet in the evening. Take with meals. diclofenac 2023-0 Yes [id number] 75mg Take 1 Univers 75 mg EC 4-21 9109 tablet by ity of tablet 00:00: mouth in [address] and 1 tablet in the evening. Take with meals. diclofenac 2023-0 Yes [id number] 75mg Take 1 Univers 75 mg EC 4-21 9109 tablet by ity of tablet 00:00: mouth in [address] and 1 tablet in the evening. Take with meals. diclofenac 2023-0 Yes [id number] 75mg Take 1 Univers 75 mg EC 4-21 9109 tablet by ity of tablet 00:00: mouth in [address] morning [place] and 1 tablet in the evening. Take with meals. diclofenac 2023-0 Yes [id number] 75mg Take 1 Univers 75 mg EC 4-21 9109 tablet by ity of tablet 00:00: mouth in [place] [address] the [facility] morning [place] and 1 tablet in the evening. Take with meals. diclofenac 2023-0 Yes [id number] 75mg Take 1 Univers 75 mg EC 4-21 9109 tablet by ity of tablet 00:00: mouth in [address] morning [place] and 1 tablet in the evening. Take with meals. diclofenac 2023-0 Yes [id number] 75mg Take 1 Univers 75 mg EC 4-21 9109 tablet by ity of tablet 00:00: mouth in [address] morning [place] and 1 tablet in the evening. Take with meals. diclofenac 2023-0 Yes [id number] 75mg Take 1 Univers 75 mg EC 4-21 9109 tablet by ity of tablet 00:00: mouth in [address] morning [place] and 1 tablet in the evening. Take with meals. diclofenac 2023-0 Yes [id number] 75mg Take 1 Univers 75 mg EC 4-21 9109 tablet by ity of tablet 00:00: mouth in [address] and 1 tablet in the evening. Take with meals. diclofenac 2023-0 Yes [id number] 75mg Take 1 Univers 75 mg EC 4-21 9109 tablet by ity of tablet 00:00: mouth in [address] morning [place] and 1 tablet in the evening. Take with meals. diclofenac 2023-0 Yes [id number] 75mg Take 1 Univers 75 mg EC 4-21 9109 tablet by ity of tablet 00:00: mouth in [address] and 1 tablet in the evening. Take with meals. diclofenac 2023-0 Yes [id number] 75mg Take 1 Univers 75 mg EC 4-21 9109 tablet by ity of tablet 00:00: mouth in [address] and 1 tablet in the evening. Take with meals. diclofenac 2023-0 Yes [id number] 75mg Take 1 Univers 75 mg EC 4-21 9109 tablet by ity of tablet 00:00: mouth in [address] and 1 tablet in the evening. Take with meals. diclofenac 2023-0 Yes [id number] 75mg Take 1 Univers 75 mg EC 4-21 9109 tablet by ity of tablet 00:00: mouth in [address] morning [place] and 1 tablet in the evening. Take with meals. diclofenac 2023-0 Yes [id number] 75mg Take 1 Univers 75 mg EC 4-21 9109 tablet by ity of tablet 00:00: mouth in [address] morning [place] and 1 tablet in the evening. Take with meals. diclofenac 2023-0 Yes [id number] 75mg Take 1 Univers 75 mg EC 4-21 9109 tablet by ity of tablet 00:00: mouth in [address] morning [place] and 1 tablet in the evening. Take with meals. diclofenac 2023-0 Yes [id number] 75mg Take 1 Univers 75 mg EC 4-21 9109 tablet by ity of tablet 00:00: mouth in [address] and 1 tablet in the evening. Take with meals. diclofenac 2023-0 Yes [id number] 75mg Take 1 Univers 75 mg EC 4-21 9109 tablet by ity of tablet 00:00: mouth in [address] and 1 tablet in the evening. Take with meals. diclofenac 2023-0 Yes [id number] 75mg Take 1 Univers 75 mg EC 4-21 9109 tablet by ity of tablet 00:00: mouth in [address] and 1 tablet in the evening. Take with meals. diclofenac 2023-0 Yes [id number] 75mg Take 1 Univers 75 mg EC 4-21 9109 tablet by ity of tablet 00:00: mouth in [address] and 1 tablet in the evening. Take with meals. diclofenac 2023-0 Yes [id number] 75mg Take 1 Univers 75 mg EC 4-21 9109 tablet by ity of tablet 00:00: mouth in [address] and 1 tablet in the evening. Take with meals. diclofenac 2023-0 Yes [id number] 75mg Take 1 Univers 75 mg EC 4-21 9109 tablet by ity of tablet 00:00: mouth in [address] and 1 tablet in the evening. Take with meals. diclofenac 2023-0 Yes [id number] 75mg Take 1 Univers 75 mg EC 4-21 9109 tablet by ity of tablet 00:00: mouth in [address] morning [place] and 1 tablet in the evening. Take with meals. diclofenac 2023-0 Yes [id number] 75mg Take 1 Univers 75 mg EC 4-21 9109 tablet by ity of tablet 00:00: mouth in [address] and 1 tablet in the evening. Take with meals. diclofenac 2023-0 Yes [id number] 75mg Take 1 Univers 75 mg EC 4-21 9109 tablet by ity of tablet 00:00: mouth in [address] and 1 tablet in the evening. Take with meals. diclofenac 2023-0 Yes [id number] 75mg Take 1 Univers 75 mg EC 4-21 9109 tablet by ity of tablet 00:00: mouth in [address] and 1 tablet in the evening. Take with meals. diclofenac 2023-0 Yes [id number] 75mg Take 1 Univers 75 mg EC 4-21 9109 tablet by ity of tablet 00:00: mouth in [address] and 1 tablet in the evening. Take with meals. diclofenac 2023-0 Yes [id number] 75mg Take 1 Univers 75 mg EC 4-21 9109 tablet by ity of tablet 00:00: mouth in [address] and 1 tablet in the evening. Take with meals. diclofenac 2023-0 Yes [id number] 75mg Take 1 Univers 75 mg EC 4-21 9109 tablet by ity of tablet 00:00: mouth in [address] and 1 tablet in the evening. Take with meals. diclofenac 2023-0 Yes [id number] 75mg Take 1 Univers 75 mg EC 4-21 9109 tablet by ity of tablet 00:00: mouth in [address] and 1 tablet in the evening. Take with meals. diclofenac 2023-0 Yes [id number] 75mg Take 1 Univers 75 mg EC 4-21 9109 tablet by ity of tablet 00:00: mouth in [address] and 1 tablet in the evening. Take with meals. diclofenac 2023-0 Yes [id number] 75mg Take 1 [facility] 75 mg EC 4-21 9109 tablet by ity of tablet 00:00: mouth in [address] and 1 tablet in the evening. Take with meals. diclofenac 2023-0 Yes [id number] 75mg Take 1 Univers 75 mg EC 4-21 9109 tablet by ity of tablet 00:00: mouth in [place] [address] the [facility] morning [place] and 1 tablet in the evening. Take with meals. diclofenac 2023-0 Yes [id number] 75mg Take 1 Univers 75 mg EC 4-21 9109 tablet by ity of tablet 00:00: mouth in [place] [address] the [facility] morning [place] and 1 tablet in the evening. Take with meals. diclofenac 2023-0 Yes [id number] 75mg Take 1 Univers 75 mg EC 4-21 9109 tablet by ity of tablet 00:00: mouth in [place] [address] the [facility] morning [place] and 1 tablet in the evening. Take with meals. diclofenac 2023-0 Yes [id number] 75mg Take 1 [facility] 75 mg EC 4-21 9109 tablet by ity of tablet 00:00: mouth in [address] morning [place] and 1 tablet in the evening. Take [...] times a l AEROSPHERE day. INHL) albuterol Yes 1.25mg Q.5D Take 3 mL M ethodi (ACCUNEB) 4-14 (1.[address] 1.25 mg/3 12:45: total) by Hos kian mL 03 nebulizati l nebulizer on 2 (two) solution times a day. fexofenadin 2022- No 60mg QD Take 1 Met hodi e (SWEETIE) -14 05-15 tablet (60 s t 60 MG 00:00: 04:59 mg total) Hospit a tablet 00 :00 by mouth l daily for 30 days. fexofenadin 2022-2022- No 60mg QD Take 1 Met hodi e (SWEETIE) -14 05-15 tablet (60 s t 60 MG 00:00: 04:59 mg total) Hospit a tablet 00 :00 by mouth l daily for 30 days. fexofenadin 2022-2022- No 60mg QD Take 1 Met hodi e (SWEETIE) -14 05-15 tablet (60 s t 60 MG 00:00: 04:59 mg total) Hospit a tablet 00 :00 by mouth l daily for 30 days. predniSONE 2022-0 2022- No 20mg QD Take 1 Meth ron (DELTASONE) - 04-25 tablet (20 s t 20 mg 00:00: 04:59 mg total) Hospit a tablet 00 :00 by mouth l daily for 10 days. predniSONE 2022-0 2022- No 20mg QD Take 1 Meth ron (DELTASONE) -14 04-25 tablet (20 s t 20 mg 00:00: 04:59 mg total) Hospit a tablet 00 :00 by mouth l daily for 10 days. predniSONE 2022-0 2022- No 20mg QD Take 1 Meth ron (DELTASONE) 4-14 04-25 tablet (20 s t 20 mg 00:00: 04:59 mg total) Hospit a tablet 00 :00 by mouth l daily for 10 days. fluoxetine Yes 50mg QD Take 50 mg M ethodi HCl 4-[address] (FLUOXETINE 13:08: daily. 40 H ospita ORAL) 37 mg+ 10 mg l PO daily levothyroxi 2023-0 Yes 88ug QD Take 1 Meth ron ne 4-13 tablet (88 st (SYNTHROID) 13:08: mcg total) Hospita 88 mcg 37 by mouth l tablet daily. montelukast 2023-0 Yes 10mg QD Take 1 Meth ron (SINGULAIR) 4-13 tablet (10 st 10 mg 13:08: mg total) Hospita tablet 37 by mouth l daily. folic acid 2023-0 Yes 1mg QD Take 1 mg Me [facility]odi (FOLVITE) 1 4-[address] MG tablet 13:08: daily. Hospit a 37 l fluoxetine 2023-0 Yes 50mg QD Take 50 mg M ethodi HCl 4-[address] (FLUOXETINE 13:08: daily. 40 H ospita ORAL) 37 mg+ 10 mg l PO daily levothyroxi 2023-0 Yes 88ug QD Take 1 Meth ron ne 4-13 tablet (88 st (SYNTHROID) 13:08: mcg total) Hospita 88 mcg 37 by mouth l tablet daily. montelukast 2023-0 Yes 10mg QD Take 1 Meth ron (SINGULAIR) 4-13 tablet (10 st 10 mg 13:08: mg total) Hospita tablet 37 by mouth l daily. folic acid 2023-0 Yes 1mg QD Take 1 mg [facility] (FOLVITE) 1 4-[address] MG tablet 13:08: daily. Hospit a 37 l fluoxetine 2023-0 Yes 50mg QD Take 50 mg M ethodi HCl 4-[address] (FLUOXETINE 13:08: daily. 40 H ospita ORAL) 37 mg+ 10 mg l PO daily levothyroxi 2023-0 Yes 88ug QD Take 1 Meth ron ne 4-13 tablet (88 st (SYNTHROID) 13:08: mcg total) Hospita 88 mcg 37 by mouth l tablet daily. montelukast 2023-0 Yes 10mg QD Take 1 Meth ron (SINGULAIR) 4-13 tablet (10 st 10 mg 13:08: mg total) Hospita tablet 37 by mouth l daily. folic acid 2023-0 Yes 1mg QD Take 1 mg [facility] (FOLVITE) 1 4-[address] MG tablet 13:08: daily. Hospit a 37 l benzonatate 2022-0 2023- No 200mg Q6H Take 1 [facility] (TESSALON) 4-13 -[address] 200 MG 00:00: 04:59 (200 mg Hospita capsule 00 :00 total) by l mouth every 6 (six) hours as needed for cough for up to 30 days. benzonatate 2022-0 2023- No 200mg Q6H Take 1 [facility] (TESSALON) 4- 05-[address] 200 MG 00:00: 04:59 (200 mg Hospita capsule 00 :00 total) by l mouth every 6 (six) hours as needed for cough for up to 30 days. benzonatate 2022-0 2023- No 200mg Q6H Take 1 [facility] (TESSALON) 4-[address] 200 MG 00:00: 04:59 (200 mg Hospita capsule 00 :00 total) by l mouth every 6 (six) hours as needed for cough for up to 30 days. amoxicillin 2022-0 2023- No 500mg Q.5D Take 1 [facility] -pot 10-27-[address] clavulanate 00:00: 04:59 (500 mg Ho spita (Augmentin) 00 :00 total) by l 500-125 mg mouth 2 per tablet (two) times a day for 7 days. amoxicillin 2022-0 2023- No 500mg Q.5D Take 1 [facility] -pot 10-[address] clavulanate 00:00: 04:59 (500 mg Ho spita (Augmentin) 00 :00 total) by l 500-125 mg mouth 2 per tablet (two) times a day for 7 days. amoxicillin 2022-0 2023- No 500mg Q.5D Take 1 [facility] -pot 4-[address] clavulanate 00:00: 04:59 (500 mg Ho spita (Augmentin) 00 :00 total) by l 500-125 mg mouth 2 per tablet (two) times a day for 7 days. BREZTRI 0 Yes 1{puff} Inhale 1 Uni vers AEROSPHERE 3-28 Puff in ity of 160-9-4.8 00:00: the [place] mcg/actuati 00 morning. [facility] on [facility] Yes 1{puff} Inhale 1 Uni vers AEROSPHERE 3-28 Puff in ity of 160-9-4.8 00:00: the [place] mcg/actuati morning. Medi demar on [facility] Yes 1{puff} Inhale 1 Uni vers AEROSPHERE 3-28 Puff in ity of 160-9-4.8 00:00: the [place] mcg/actuati morning. Medi demar on [facility] Yes 1{puff} Inhale 1 Uni vers AEROSPHERE 3-28 Puff in ity of 160-9-4.8 00:00: the [place] mcg/actuati morning. Medi demar on [facility] Yes 1{puff} Inhale 1 Uni vers AEROSPHERE 3-28 Puff in ity of 160-9-4.8 00:00: the [place] mcg/actuati morning. Medi demar on [facility] Yes 1{puff} Inhale 1 Uni vers AEROSPHERE 3-28 Puff in ity of 160-9-4.8 00:00: the [place] mcg/actuati morning. Medi demar on [facility] Yes 1{puff} Inhale 1 Uni vers AEROSPHERE 3-28 Puff in ity of 160-9-4.8 00:00: the [place] mcg/actuati morning. Medi demar on [facility] Yes 1{puff} Inhale 1 Uni vers AEROSPHERE 3-28 Puff in ity of 160-9-4.8 00:00: the [place] mcg/actuati morning. Medi demar on [facility] Yes 1{puff} Inhale 1 Uni vers AEROSPHERE 3-28 Puff in ity of 160-9-4.8 00:00: the [place] mcg/actuati morning. Medi demar on [facility] Yes 1{puff} Inhale 1 Uni vers AEROSPHERE 3-28 Puff in ity of 160-9-4.8 00:00: the [place] mcg/actuati 00 morning. Medi demar on [facility] Yes 1{puff} Inhale 1 Uni vers AEROSPHERE 3-28 Puff in ity of 160-9-4.8 00:00: the [place] mcg/actuati morning. Medi demar on [facility] Yes 1{puff} Inhale 1 Uni vers AEROSPHERE 3-28 Puff in ity of 160-9-4.8 00:00: the [place] mcg/actuati morning. Medi demar on [facility] Yes 1{puff} Inhale 1 Uni vers AEROSPHERE 3-28 Puff in ity of 160-9-4.8 00:00: the [place] mcg/actuati morning. Medi demar on [facility] Yes 1{puff} Inhale 1 Uni vers AEROSPHERE 3-28 Puff in ity of 160-9-4.8 00:00: the [place] mcg/actuati morning. Medi demar on [facility] Yes 1{puff} Inhale 1 Uni vers AEROSPHERE 3-28 Puff in ity of 160-9-4.8 00:00: the [place] mcg/actuati morning. Medi demar on [facility] Yes 1{puff} Inhale 1 Uni vers AEROSPHERE 3-28 Puff in ity of 160-9-4.8 00:00: the [place] mcg/actuati morning. Medi demar on [facility] Yes 1{puff} Inhale 1 Uni vers AEROSPHERE 3-28 Puff in ity of 160-9-4.8 00:00: the [place] mcg/actuati morning. Medi demar on [facility] Yes 1{puff} Inhale 1 Uni vers AEROSPHERE 3-28 Puff in ity of 160-9-4.8 00:00: the [place] mcg/actuati morning. Medi demar on [facility] Yes 1{puff} Inhale 1 Uni vers AEROSPHERE 3-28 Puff in ity of 160-9-4.8 00:00: the [place] mcg/actuati morning. Medi demar on [facility] Yes 1{puff} Inhale 1 Uni vers AEROSPHERE 3-28 Puff in ity of 160-9-4.8 00:00: the [place] mcg/actuati morning. Medi demar on [facility] Yes 1{puff} Inhale 1 Uni vers AEROSPHERE 3-28 Puff in ity of 160-9-4.8 00:00: the [place] mcg/actuati morning. Medi demar on [facility] Yes 1{puff} Inhale 1 Uni vers AEROSPHERE 3-28 Puff in ity of 160-9-4.8 00:00: the [place] mcg/actuati morning. Medi demar on [facility] Yes 1{puff} Inhale 1 Uni vers AEROSPHERE 3-28 Puff in ity of 160-9-4.8 00:00: the [place] mcg/actuati morning. Medi demar on [facility] Yes 1{puff} Inhale 1 Uni vers AEROSPHERE 3-28 Puff in ity of 160-9-4.8 00:00: the [place] mcg/actuati morning. Medi demar on [facility] Yes 1{puff} Inhale 1 Uni vers AEROSPHERE 3-28 Puff in ity of 160-9-4.8 00:00: the [place] mcg/actuati morning. Medi demar on [facility] Yes 1{puff} Inhale 1 Uni vers AEROSPHERE 3-28 Puff in ity of 160-9-4.8 00:00: the [place] mcg/actuati morning. Medi demar on [facility] Yes 1{puff} Inhale 1 Uni vers AEROSPHERE 3-28 Puff in ity of 160-9-4.8 00:00: the [place] mcg/actuati morning. Medi demar on [facility] Yes 1{puff} Inhale 1 Uni vers AEROSPHERE 3-28 Puff in ity of 160-9-4.8 00:00: the [place] mcg/actuati morning. Medi demar on [facility] Yes 1{puff} Inhale 1 Uni vers AEROSPHERE 3-28 Puff in ity of 160-9-4.8 00:00: the [place] mcg/actuati morning. Medi demar on [facility] Yes 1{puff} Inhale 1 Uni vers AEROSPHERE 3-28 Puff in ity of 160-9-4.8 00:00: the [place] mcg/actuati morning. Medi demar on [facility] Yes 1{puff} Inhale 1 Uni vers AEROSPHERE 3-28 Puff in ity of 160-9-4.8 00:00: the [place] mcg/actuati morning. Medi demar on [facility] Yes 1{puff} Inhale 1 Uni vers AEROSPHERE 3-28 Puff in ity of 160-9-4.8 00:00: the [place] mcg/actuati morning. Medi demar on [facility] Yes 1{puff} Inhale 1 Uni vers AEROSPHERE 3-28 Puff in ity of 160-9-4.8 00:00: the [place] mcg/actuati morning. Medi demar on [facility] Yes 1{puff} Inhale 1 Uni vers AEROSPHERE 3-28 Puff in ity of 160-9-4.8 00:00: the [place] mcg/actuati morning. Medi demar on [facility] Yes 1{puff} Inhale 1 Uni vers AEROSPHERE 3-28 Puff in ity of 160-9-4.8 00:00: the [place] mcg/actuati morning. Medi demar on [facility] Yes 1{puff} Inhale 1 Uni vers AEROSPHERE 3-28 Puff in ity of 160-9-4.8 00:00: the [place] mcg/actuati morning. Medi demar on [facility] Yes 1{puff} Inhale 1 Uni vers AEROSPHERE 3-28 Puff in ity of 160-9-4.8 00:00: the [place] mcg/actuati 00 morning. Medi demar on [facility] Branch [facility] Yes 1{puff} Inhale 1 Uni vers AEROSPHERE 3-28 Puff in ity of 160-9-4.8 00:00: the [place] mcg/actuati 00 morning. Medi demar on [facility] Branch [facility] Yes 1{puff} Inhale 1 Uni vers AEROSPHERE 3-28 Puff in ity of 160-9-4.8 00:00: the [place] mcg/actuati 00 morning. Medi demar on [facility] Branch [facility] Yes 1{puff} Inhale 1 Uni vers AEROSPHERE 3-28 Puff in ity of 160-9-4.8 00:00: the [place] mcg/actuati morning. Medi demar on [facility] Branch [facility] Yes 1{puff} Inhale 1 Uni vers AEROSPHERE 3-28 Puff in ity of 160-9-4.8 00:00: the [place] mcg/actuati morning. Medi demar on [facility] Branch meloxicam 2021-07- No 15mg Q24H Take [...] as needed (INFLAMMAT ION). sodium 2021- No [id number] 30mg Uni vers hyaluronate 03-11 08 9109 ity of (viscosup) 14:45: 14:31 [place] (ORTHOVISC) 00 :00 Medical injection Branch 30 mg sodium 2-0 2- No [id number] 30mg 30 mg, U nivers hyaluronate 03-11 9109 Intra-[facility] i ty of (viscosup) 14:45: 14:[place]TH[place]ISC[place] 00 :00 ONCE, 1 Medic al injection dose, On Branch 30 mg Mon03/11/22 at 0945, Routine sodium 2-0 202- No [id number] 30mg Uni vers hyaluronate 03-11 9109 ity of (viscosup) 14:45: 14:31 [place] (ORTHOVISC) 00 :00 Medical injection Branch 30 mg sodium 2021-0 2021- No [id number] 30mg 30 mg, U nivers hyaluronate 03-11 9109 Intra-[facility] i ty of (viscosup) 14:45: 14:31 [place] (ORTHOVISC[place] 00 :00 ONCE, 1 Medic al injection dose, On Branch 30 mg Mon03/11/22 at 0945, Routine benzonatate 2022-0 Yes [id number] 100mg Take 1 [facility] 100 mg 2-21 capsule by ity of capsule 00:00: mouth 3 [place] 00 (three) Medical times Branch daily as needed for Cough. benzonatate 2022-0 Yes [id number] 100mg Take 1 [facility] 100 mg 2-21 capsule by ity of capsule 00:00: mouth 3 [place] 00 (three) Medical times Branch daily as needed for Cough. benzonatate 2022-0 Yes [id number] 100mg Take 1 [facility] 100 mg 2-21 capsule by ity of capsule 00:00: mouth 3 [place] 00 (three) Medical times Branch daily as needed for Cough. benzonatate 2022-0 Yes [id number] 100mg Take 1 [facility] 100 mg 2-21 capsule by ity of capsule 00:00: mouth 3 [place] 00 (three) Medical times Branch daily as needed for Cough. benzonatate 2022-0 Yes [id number] 100mg Take 1 [facility] 100 mg 2-21 capsule by ity of capsule 00:00: mouth 3 [place] 00 (three) Medical times Branch daily as needed for Cough. benzonatate 2022-0 Yes [id number] 100mg Take 1 [facility] 100 mg 2-21 capsule by ity of capsule 00:00: mouth (three) Medical times Branch daily as needed for Cough. benzonatate 2022-0 Yes [id number] 100mg Take 1 [facility] 100 mg 2-21 capsule by ity of capsule 00:00: mouth (three) Medical times Branch daily as needed for Cough. benzonatate 2022-0 Yes [id number] 100mg Take 1 [facility] 100 mg 2-21 capsule by ity of capsule 00:00: mouth (three) Medical times Branch daily as needed for Cough. benzonatate 2022-0 Yes [id number] 100mg Take 1 [facility] 100 mg 2-21 capsule by ity of capsule 00:00: mouth (three) Medical times Branch daily as needed for Cough. benzonatate 2022-0 Yes [id number] 100mg Take 1 [facility] 100 mg 2-21 capsule by ity of capsule 00:00: mouth (three) Medical times Branch daily as needed for Cough. benzonatate 2022-0 Yes [id number] 100mg Take 1 [facility] 100 mg 2-21 capsule by ity of capsule 00:00: mouth (three) Medical times Branch daily as needed for Cough. benzonatate 2022-0 Yes [id number] 100mg Take 1 [facility] 100 mg 2-21 capsule by ity of capsule 00:00: mouth () Medical times Branch daily as needed for Cough. benzonatate 2022-0 Yes [id number] 100mg Take 1 [facility] 100 mg 2-21 capsule by ity of capsule 00:00: mouth (three) Medical times Branch daily as needed for Cough. benzonatate 2022-0 Yes [id number] 100mg Take 1 [facility] 100 mg 2-21 capsule by ity of capsule 00:00: mouth (three) Medical times Branch daily as needed for Cough. benzonatate 2022-0 Yes [id number] 100mg Take 1 [facility] 100 mg 2-21 capsule by ity of capsule 00:00: mouth (three) Medical times Branch daily as needed for Cough. benzonatate 2022-0 Yes [id number] 100mg Take 1 [facility] 100 mg 2-21 capsule by ity of capsule 00:00: mouth (three) Medical times Branch daily as needed for Cough. benzonatate 2022-0 Yes [id number] 100mg Take 1 [facility] 100 mg 2-21 capsule by ity of capsule 00:00: mouth (three) Medical times Branch daily as needed for Cough. benzonatate 2022-0 Yes [id number] 100mg Take 1 [facility] 100 mg 2-21 capsule by ity of capsule 00:00: mouth 3 (three) Medical times Branch daily as needed for Cough. benzonatate 2022-0 Yes [id number] 100mg Take 1 [facility] 100 mg 2-21 capsule by ity of capsule 00:00: mouth (three) Medical times Branch daily as needed for Cough. benzonatate 2022-0 Yes [id number] 100mg Take 1 [facility] 100 mg 2-21 capsule by ity of capsule 00:00: mouth (three) Medical times Branch daily as needed for Cough. benzonatate 2022-0 Yes [id number] 100mg Take 1 [facility] 100 mg 2-21 capsule by ity of capsule 00:00: mouth (three) Medical times Branch daily as needed for Cough. benzonatate 2022-0 Yes [id number] 100mg Take 1 [facility] 100 mg 2-21 capsule by ity of capsule 00:00: mouth (three) Medical times Branch daily as needed for Cough. benzonatate 2022-0 Yes [id number] 100mg Take 1 [facility] 100 mg 2-21 capsule by ity of capsule 00:00: mouth (three) Medical times Branch daily as needed for Cough. benzonatate 2022-0 Yes [id number] 100mg Take 1 [facility] 100 mg 2-21 capsule by ity of capsule 00:00: mouth (three) Medical times Branch daily as needed for Cough. benzonatate 2022-0 Yes [id number] 100mg Take 1 [facility] 100 mg 2-21 capsule by ity of capsule 00:00: mouth (three) Medical times Branch daily as needed for Cough. benzonatate 2022-0 Yes [id number] 100mg Take 1 [facility] 100 mg 2-21 capsule by ity of capsule 00:00: mouth 3 (three) Medical times Branch daily as needed for Cough. benzonatate 2022-0 Yes [id number] 100mg Take 1 [facility] 100 mg 2-21 capsule by ity of capsule 00:00: mouth (three) Medical times Branch daily as needed for Cough. benzonatate 2022-0 Yes [id number] 100mg Take 1 [facility] 100 mg 2-21 capsule by ity of capsule 00:00: mouth (three) Medical times Branch daily as needed for Cough. benzonatate 2022-0 Yes [id number] 100mg Take 1 [facility] 100 mg 2-21 capsule by ity of capsule 00:00: mouth (three) Medical times Branch daily as needed for Cough. benzonatate 2022-0 Yes [id number] 100mg Take 1 [facility] 100 mg 2-21 capsule by ity of capsule 00:00: mouth (three) Medical times Branch daily as needed for Cough. benzonatate 2022-0 Yes [id number] 100mg Take 1 [facility] 100 mg 2-21 capsule by ity of capsule 00:00: mouth (three) Medical times Branch daily as needed for Cough. benzonatate 2022-0 Yes [id number] 100mg Take 1 [facility] 100 mg 2-21 capsule by ity of capsule 00:00: mouth (three) Medical times Branch daily as needed for Cough. benzonatate 2022-0 Yes [id number] 100mg Take 1 [facility] 100 mg 2-21 capsule by ity of capsule 00:00: mouth (three) Medical times Branch daily as needed for Cough. benzonatate 2022-0 Yes [id number] 100mg Take 1 [facility] 100 mg 2-21 capsule by ity of capsule 00:00: mouth (three) Medical times Branch daily as needed for Cough. benzonatate 2022-0 Yes [id number] 100mg Take 1 [facility] 100 mg 2-21 capsule by ity of capsule 00:00: mouth (three) Medical times Branch daily as needed for Cough. benzonatate 2022-0 Yes [id number] 100mg Take 1 [facility] 100 mg 2-21 capsule by ity of capsule 00:00: mouth (three) Medical times Branch daily as needed for Cough. benzonatate 2022-0 Yes [id number] 100mg Take 1 [facility] 100 mg 2-21 capsule by ity of capsule 00:00: mouth (three) Medical times Branch daily as needed for Cough. benzonatate 2022-0 Yes [id number] 100mg Take 1 [facility] 100 mg 2-21 capsule by ity of capsule 00:00: mouth 3 (three) Medical times Branch daily as needed for Cough. benzonatate 2022-0 Yes [id number] 100mg Take 1 [facility] 100 mg 2-21 capsule by ity of capsule 00:00: mouth 3 (three) Medical times Branch daily as needed for Cough. benzonatate 2022-0 Yes [id number] 100mg Take 1 [facility] 100 mg 2-21 capsule by ity of capsule 00:00: mouth 3 (three) Medical times Branch daily as needed for Cough. benzonatate 2022-0 Yes [id number] 100mg Take 1 [facility] 100 mg 2-21 capsule by ity of capsule 00:00: mouth (three) Medical times Branch daily as needed for Cough. benzonatate 2022-0 Yes [id number] 100mg Take 1 [facility] 100 mg 2-21 capsule by ity of capsule 00:00: mouth (three) Medical times Branch daily as needed for Cough. benzonatate 2022-0 Yes [id number] 100mg Take 1 [facility] 100 mg 2-21 capsule by ity of capsule 00:00: mouth (three) Medical times Branch daily as needed for Cough. benzonatate 2022-0 Yes [id number] 100mg Take 1 [facility] 100 mg 2-21 capsule by ity of capsule 00:00: mouth (three) Medical times Branch daily as needed for Cough. benzonatate 2022-0 Yes [id number] 100mg Take 1 [facility] 100 mg 2-21 capsule by ity of capsule 00:00: mouth (three) Medical times Branch daily as needed for Cough. benzonatate 2022-0 Yes [id number] 100mg Take 1 [facility] 100 mg 2-21 capsule by ity of capsule 00:00: mouth (three) Medical times Branch daily as needed for Cough. benzonatate 2022-0 Yes [id number] 100mg Take 1 [facility] 100 mg 2-21 capsule by ity of capsule 00:00: mouth 3 (three) Medical times Branch daily as needed for Cough. benzonatate 2022-0 Yes [id number] 100mg Take 1 [facility] 100 mg 2-21 capsule by ity of capsule 00:00: mouth 3 (three) Medical times Branch daily as needed for Cough. benzonatate 2022-0 Yes [id number] 100mg Take 1 [facility] 100 mg 2-21 capsule by ity of capsule 00:00: mouth (three) Medical times Branch daily as needed for Cough. benzonatate 2022-0 Yes [id number] 100mg Take 1 [facility] 100 mg 2-21 capsule by ity of capsule 00:00: mouth (three) Medical times Branch daily as needed for Cough. benzonatate 2022-0 Yes [id number] 100mg Take 1 [facility] 100 mg 2-21 capsule by ity of capsule 00:00: mouth (three) Medical times Branch daily as needed for Cough. benzonatate 2022-0 Yes [id number] 100mg Take 1 [facility] 100 mg 2-21 capsule by ity of capsule 00:00: mouth (three) Medical times Branch daily as needed for Cough. benzonatate 2022-0 Yes [id number] 100mg Take 1 [facility] 100 mg 2-21 capsule by ity of capsule 00:00: mouth (three) Medical times Branch daily as needed for Cough. benzonatate 2022-0 Yes [id number] 100mg Take 1 [facility] 100 mg 2-21 capsule by ity of capsule 00:00: mouth (three) Medical times Branch daily as needed for Cough. benzonatate 2022-0 Yes [id number] 100mg Take 1 [facility] 100 mg 2-21 capsule by ity of capsule 00:00: mouth (three) Medical times Branch daily as needed for Cough. benzonatate 2022-0 Yes [id number] 100mg Take 1 [facility] 100 mg 2-21 capsule by ity of capsule 00:00: mouth (three) Medical times Branch daily as needed for Cough. benzonatate 2022-0 Yes [id number] 100mg Take 1 [facility] 100 mg 2-21 capsule by ity of capsule 00:00: mouth 3 (three) Medical times Branch daily as needed for Cough. benzonatate 2022-0 Yes [id number] 100mg Take 1 [facility] 100 mg 2-21 capsule by ity of capsule 00:00: mouth (three) Medical times Branch daily as needed for Cough. benzonatate 2022-0 Yes [id number] 100mg Take 1 [facility] 100 mg 2-21 capsule by ity of capsule 00:00: mouth (three) Medical times Branch daily as needed for Cough. benzonatate 2022-0 Yes [id number] 100mg Take 1 [facility] 100 mg 2-21 capsule by ity of capsule 00:00: mouth (three) Medical times Branch daily as needed for Cough. benzonatate 2022-0 Yes [id number] 100mg Take 1 [facility] 100 mg 2-21 capsule by ity of capsule 00:00: mouth (three) Medical times Branch daily as needed for Cough. benzonatate 2022-0 Yes [id number] 100mg Take 1 [facility] 100 mg 2-21 capsule by ity of capsule 00:00: mouth (three) Medical times Branch daily as needed for Cough. benzonatate 2022-0 Yes [id number] 100mg Take 1 [facility] 100 mg 2-21 capsule by ity of capsule 00:00: mouth (three) Medical times Branch daily as needed for Cough. benzonatate 2022-0 Yes [id number] 100mg Take 1 [facility] 100 mg 2-21 capsule by ity of capsule 00:00: mouth (three) Medical times Branch daily as needed for Cough. benztropine 2020-07 Yes [id number] 1mg Take 1 Univers 1 mg tablet 0-25 tablet by ity of 00:00: mouth (two) Medical times Branch daily as needed (tremor). benztropine 2020- Yes [id number] 1mg Take 1 Univers 1 mg tablet 0-25 tablet by ity of 00:00: mouth (two) Medical times Branch daily as needed (tremor). benztropine 2020- Yes [id number] 1mg Take 1 Univers 1 mg tablet 0-25 tablet by ity of 00:00: mouth (two) Medical times Branch daily as needed (tremor). benztropine 2020- Yes [id number] 1mg Take 1 Univers 1 mg tablet 0-25 tablet by ity of 00:00: mouth (two) Medical times Branch daily as needed (tremor). benztropine 2020-07 Yes [id number] 1mg Take 1 Univers 1 mg tablet 0-25 tablet by ity of 00:00: mouth (two) Medical times Branch daily as needed (tremor). benztropine 2020-07 Yes [id number] 1mg Take 1 Univers 1 mg tablet 0-25 tablet by ity of 00:00: mouth (two) Medical times Branch daily as needed (tremor). benztropine 2020-07 Yes [id number] 1mg Take 1 Univers 1 mg tablet 0-25 tablet by ity of 00:00: mouth (two) Medical times Branch daily as needed (tremor). benztropine 2020-07 Yes [id number] 1mg Take 1 Univers 1 mg tablet 0-25 tablet by ity of 00:00: mouth (two) Medical times Branch daily as needed (tremor). benztropine 2020-07 Yes [id number] 1mg Take 1 Univers 1 mg tablet 0-25 tablet by ity of 00:00: mouth (two) Medical times Branch daily as needed (tremor). benztropine 2020-07 Yes [id number] 1mg Take 1 Univers 1 mg tablet 0-25 tablet by ity of 00:00: mouth (two) Medical times Branch daily as needed (tremor). benztropine 2020-07 Yes [id number] 1mg Take 1 Univers 1 mg tablet 0-25 tablet by ity of 00:00: mouth (two) Medical times Branch daily as needed (tremor). benztropine 2020-07 Yes [id number] 1mg Take 1 Univers 1 mg tablet 0-25 tablet by ity of 00:00: mouth (two) Medical times Branch daily as needed (tremor). benztropine 2020-07 Yes [id number] 1mg Take 1 Univers 1 mg tablet 0-25 tablet by ity of 00:00: mouth (two) Medical times Branch daily as needed (tremor). benztropine 2020-07 Yes [id number] 1mg Take 1 Univers 1 mg tablet 0-25 tablet by ity of 00:00: mouth (two) Medical times Branch daily as needed (tremor). benztropine 2020-07 Yes [id number] 1mg Take 1 Univers 1 mg tablet 0-25 tablet by ity of 00:00: mouth (two) Medical times Branch daily as needed (tremor). benztropine 2020-07 Yes [id number] 1mg Take 1 Univers 1 mg tablet 0-25 tablet by ity of 00:00: mouth (two) Medical times Branch daily as needed (tremor). benztropine 2020-07 Yes [id number] 1mg Take 1 Univers 1 mg tablet 0-25 tablet by ity of 00:00: mouth (two) Medical times Branch daily as needed (tremor). benztropine 2020-07 Yes [id number] 1mg Take 1 Univers 1 mg tablet 0-25 tablet by ity of 00:00: mouth (two) Medical times Branch daily as needed (tremor). benztropine 2020-07 Yes [id number] 1mg Take 1 Univers 1 mg tablet 0-25 tablet by ity of 00:00: mouth (two) Medical times Branch daily as needed (tremor). benztropine 2020-07 Yes [id number] 1mg Take 1 Univers 1 mg tablet 0-25 tablet by ity of 00:00: mouth (two) Medical times Branch daily as needed (tremor). benztropine 2020-07 Yes [id number] 1mg Take 1 Univers 1 mg tablet 0-25 tablet by ity of 00:00: mouth (two) Medical times Branch daily as needed (tremor). benztropine 2020-07 Yes [id number] 1mg Take 1 Univers 1 mg tablet 0-25 tablet by ity of 00:00: mouth (two) Medical times Branch daily as needed (tremor). benztropine 2020-07 Yes [id number] 1mg Take 1 Univers 1 mg tablet 0-25 tablet by ity of 00:00: mouth (two) Medical times Branch daily as needed (tremor). benztropine 2020-07 Yes [id number] 1mg Take 1 Univers 1 mg tablet 0-25 tablet by ity of 00:00: mouth (two) Medical times Branch daily as needed (tremor). benztropine 2020-07 Yes [id number] 1mg Take 1 Univers 1 mg tablet 0-25 tablet by ity of 00:00: mouth (two) Medical times Branch daily as needed (tremor). benztropine 2020-07 Yes [id number] 1mg Take 1 Univers 1 mg tablet 0-25 tablet by ity of 00:00: mouth (two) Medical times Branch daily as needed (tremor). benztropine 2020-07 Yes [id number] 1mg Take 1 Univers 1 mg tablet 0-25 tablet by ity of 00:00: mouth (two) Medical times Branch daily as needed (tremor). benztropine 2020-07 Yes [id number] 1mg Take 1 Univers 1 mg tablet 0-25 tablet by ity of 00:00: mouth (two) Medical times Branch daily as needed (tremor). benztropine 2020-07 Yes [id number] 1mg Take 1 Univers 1 mg tablet 0-25 tablet by ity of 00:00: mouth (two) Medical times Branch daily as needed (tremor). benztropine 2020-07 Yes [id number] 1mg Take 1 Univers 1 mg tablet 0-25 tablet by ity of 00:00: mouth (two) Medical times Branch daily as needed (tremor). benztropine 2020-07 Yes [id number] 1mg Take 1 Univers 1 mg tablet 0-25 tablet by ity of 00:00: mouth (two) Medical times Branch daily as needed (tremor). benztropine 2020-07 Yes [id number] 1mg Take 1 Univers 1 mg tablet 0-25 tablet by ity of 00:00: mouth (two) Medical times Branch daily as needed (tremor). benztropine 2020-07 Yes [id number] 1mg Take 1 Univers 1 mg tablet 0-25 tablet by ity of 00:00: mouth (two) Medical times Branch daily as needed (tremor). benztropine 2020-07 Yes [id number] 1mg Take 1 Univers 1 mg tablet 0-25 tablet by ity of 00:00: mouth (two) Medical times Branch daily as needed (tremor). benztropine 2020-07 Yes [id number] 1mg Take 1 Univers 1 mg tablet 0-25 tablet by ity of 00:00: mouth 2 [place] 00 (two) Medical times Branch daily as needed (tremor). benztropine 2020-07 Yes [id number] 1mg Take 1 Univers 1 mg tablet 0-25 tablet by ity of 00:00: mouth (two) Medical times Branch daily as needed (tremor). benztropine 2020-07 Yes [id number] 1mg Take 1 Univers 1 mg tablet 0-25 tablet by ity of 00:00: mouth (two) Medical times Branch daily as needed (tremor). benztropine 2020-07 Yes [id number] 1mg Take 1 [facility] 1 mg tablet 0-25 tablet by ity of 00:00: mouth (two) Medical times Branch daily as needed (tremor). benztropine 2020-07 Yes [id number] 1mg Take 1 Univers 1 mg tablet 0-25 tablet by ity of 00:00: mouth (two) Medical times Branch daily as needed (tremor). benztropine 2020-07 Yes [id number] 1mg Take 1 Univers 1 mg tablet 0-25 tablet by ity of 00:00: mouth (two) Medical times Branch daily as needed (tremor). benztropine 2020-07 Yes [id number] 1mg Take 1 [facility] 1 mg tablet 0-25 tablet by ity of 00:00: mouth (two) Medical times Branch daily as needed (tremor). benztropine 2020-07 Yes [id number] 1mg Take 1 Univers 1 mg tablet 0-25 tablet by ity of 00:00: mouth (two) Medical times Branch daily as needed (tremor). benztropine 2020-07 Yes [id number] 1mg Take 1 Univers 1 mg tablet 0-25 tablet by ity of 00:00: mouth (two) Medical times Branch daily as needed (tremor). benztropine 2020-07 Yes [id number] 1mg Take 1 Univers 1 mg tablet 0-25 tablet by ity of 00:00: mouth (two) Medical times Branch daily as needed (tremor). benztropine 2020-07 Yes [id number] 1mg Take 1 Univers 1 mg tablet 0-25 tablet by ity of 00:00: mouth (two) Medical times Branch daily as needed (tremor). benztropine 2020-07 Yes [id number] 1mg Take 1 Univers 1 mg tablet 0-25 tablet by ity of 00:00: mouth (two) Medical times Branch daily as needed (tremor). benztropine 2020-07 Yes [id number] 1mg Take 1 Univers 1 mg tablet 0-25 tablet by ity of 00:00: mouth (two) Medical times Branch daily as needed (tremor). benztropine 2020-07 Yes [id number] 1mg Take 1 [facility] 1 mg tablet 0-25 tablet by ity of 00:00: mouth (two) Medical times Branch daily as needed (tremor). benztropine 2020-07 Yes [id number] 1mg Take 1 [facility] 1 mg tablet 0-25 tablet by ity of 00:00: mouth (two) Medical times Branch daily as needed (tremor). benztropine 2020-07 Yes [id number] 1mg Take 1 [facility] 1 mg tablet 0-25 tablet by ity of 00:00: mouth (two) Medical times Branch daily as needed (tremor). benztropine 2020-07 Yes [id number] 1mg Take 1 [facility] 1 mg tablet 0-25 tablet by ity of 00:00: mouth (two) Medical times Branch daily as needed (tremor). benztropine 2020-07 Yes [id number] 1mg Take 1 [facility] 1 mg tablet 0-25 tablet by ity of 00:00: mouth (two) Medical times Branch daily as needed (tremor). benztropine 2020-07 Yes [id number] 1mg Take 1 [facility] 1 mg tablet 0-25 tablet by ity of 00:00: mouth (two) Medical times Branch daily as needed (tremor). benztropine 2020-07 Yes [id number] 1mg Take 1 [facility] 1 mg tablet 0-25 tablet by ity of 00:00: mouth (two) Medical times Branch daily as needed (tremor). benztropine 2020-07 Yes [id number] 1mg Take 1 [facility] 1 mg tablet 0-25 tablet by ity of 00:00: mouth (two) Medical times Branch daily as needed (tremor). benztropine 2020-07 Yes [id number] 1mg Take 1 [facility] 1 mg tablet 0-25 tablet by ity of 00:00: mouth (two) Medical times Branch daily as needed (tremor). benztropine 2020-07 Yes [id number] 1mg Take 1 [facility] 1 mg tablet 0-25 tablet by ity of 00:00: mouth (two) Medical times Branch daily as needed (tremor). benztropine 2020-07 Yes [id number] 1mg Take 1 [facility] 1 mg tablet 0-25 tablet by ity of 00:00: mouth (two) Medical times Branch daily as needed (tremor). benztropine 2020-07 Yes [id number] 1mg Take 1 [facility] 1 mg tablet 0-25 tablet by ity of 00:00: mouth (two) Medical times Branch daily as needed (tremor). benztropine 2020-07 Yes [id number] 1mg Take 1 [facility] 1 mg tablet 0-25 tablet by ity of 00:00: mouth (two) Medical times Branch daily as needed (tremor). benztropine 2020-07 Yes [id number] 1mg Take 1 [facility] 1 mg tablet 0-25 tablet by ity of 00:00: mouth (two) Medical times Branch daily as needed (tremor). benztropine 2020-07 Yes [id number] 1mg Take 1 [facility] 1 mg tablet 0-25 tablet by ity of 00:00: mouth (two) Medical times Branch daily as needed (tremor). benztropine 2020-07 Yes [id number] 1mg Take 1 [facility] 1 mg tablet 0-25 tablet by ity of 00:00: mouth (two) Medical times Branch daily as needed (tremor). benztropine 2020-07 Yes [id number] 1mg Take 1 [facility] 1 mg tablet 0-25 tablet by ity of 00:00: mouth (two) Medical times Branch daily as needed (tremor). meloxicam Yes [id number] 7.5mg Take 1 [facility] 7.5 mg 9-08 9109 tablet by ity of tablet 00:00: mouth 00 daily. Medical Branch meloxicam Yes [id number] 7.5mg Take 1 [facility] 7.5 mg 9-08 9109 tablet by ity of tablet 00:00: mouth [place] 00 daily. [facility] meloxicam 2020-0 Yes [id number] 7.5mg Take 1 [facility] 7.5 mg 9-08 9109 tablet by ity of tablet 00:00: mouth [place] 00 daily. [facility] meloxicam 2020-0 Yes [id number] 7.5mg Take 1 [facility] 7.5 mg 9-08 9109 tablet by ity of tablet 00:00: mouth [place] 00 daily. [facility] meloxicam 0 Yes [id number] 7.5mg Take 1 [facility] 7.5 mg 9-08 9109 tablet by ity of tablet 00:00: mouth [place] 00 daily. [facility] meloxicam 0 Yes [id number] 7.5mg Take 1 [facility] 7.5 mg 9-08 9109 tablet by ity of tablet 00:00: mouth [place] 00 daily. [facility] meloxicam 0 Yes [id number] 7.5mg Take 1 [facility] 7.5 mg 9-08 9109 tablet by ity of tablet 00:00: mouth [place] 00 daily. [facility] meloxicam 0 Yes [id number] 7.5mg Take 1 [facility] 7.5 mg 9-08 9109 tablet by ity of tablet 00:00: mouth [place] 00 daily. [facility] meloxicam 0 Yes [id number] 7.5mg Take 1 [facility] 7.5 mg 9-08 9109 tablet by ity of tablet 00:00: mouth [place] 00 daily. [facility] meloxicam 0 Yes [id number] 7.5mg Take 1 [facility] 7.5 mg 9-08 9109 tablet by ity of tablet 00:00: mouth [place] 00 daily. [facility] [facility] meloxicam 0 Yes [id number] 7.5mg Take 1 [facility] 7.5 mg 9-08 9109 tablet by ity of tablet 00:00: mouth [place] 00 daily. [facility] meloxicam 0 Yes [id number] 7.5mg Take 1 [facility] 7.5 mg 9-08 9109 tablet by ity of tablet 00:00: mouth [place] 00 daily. [facility] meloxicam 0 Yes [id number] 7.5mg Take 1 [facility] 7.5 mg 9-08 9109 tablet by ity of tablet 00:00: mouth [place] 00 daily. [facility] meloxicam 2020-0 Yes [id number] 7.5mg Take 1 [facility] 7.5 mg 9-08 9109 tablet by ity of tablet 00:00: mouth [place] 00 daily. [facility] meloxicam 2020-0 Yes [id number] 7.5mg Take 1 [facility] 7.5 mg 9-08 9109 tablet by ity of tablet 00:00: mouth [place] 00 daily. [facility] meloxicam 2020-0 Yes [id number] 7.5mg Take 1 [facility] 7.5 mg 9-08 9109 tablet by ity of tablet 00:00: mouth [place] 00 daily. [facility] meloxicam 0 Yes [id number] 7.5mg Take 1 [facility] 7.5 mg 9-08 9109 tablet by ity of tablet 00:00: mouth [place] 00 daily. [facility] meloxicam 0 Yes [id number] 7.5mg Take 1 [facility] 7.5 mg 9-08 9109 tablet by ity of tablet 00:00: mouth [place] 00 daily. [facility] meloxicam 0 Yes [id number] 7.5mg Take 1 [facility] 7.5 mg 9-08 9109 tablet by ity of tablet 00:00: mouth [place] 00 daily. [facility] meloxicam 2020-0 Yes [id number] 7.5mg Take 1 [facility] 7.5 mg 9-08 9109 tablet by ity of tablet 00:00: mouth [place] 00 daily. [facility] meloxicam 0 Yes [id number] 7.5mg Take 1 [facility] 7.5 mg 9-08 9109 tablet by ity of tablet 00:00: mouth [place] 00 daily. [facility] meloxicam 2020-0 Yes [id number] 7.5mg Take 1 [facility] 7.5 mg 9-08 9109 tablet by ity of tablet 00:00: mouth [place] 00 daily. [facility] meloxicam 2020-0 Yes [id number] 7.5mg Take 1 [facility] 7.5 mg 9-08 9109 tablet by ity of tablet 00:00: mouth [place] 00 daily. [facility] meloxicam 2020-0 Yes [id number] 7.5mg Take 1 [facility] 7.5 mg 9-08 9109 tablet by ity of tablet 00:00: mouth [place] 00 daily. [facility] meloxicam 2020-0 Yes [id number] 7.5mg Take 1 [facility] 7.5 mg 9-08 9109 tablet by ity of tablet 00:00: mouth [place] 00 daily. [facility] meloxicam 2020-0 Yes [id number] 7.5mg Take 1 [facility] 7.5 mg 9-08 9109 tablet by ity of tablet 00:00: mouth [place] 00 daily. [facility] meloxicam 2020-0 Yes [id number] 7.5mg Take 1 [facility] 7.5 mg 9-08 9109 tablet by ity of tablet 00:00: mouth [place] 00 daily. [facility] meloxicam 0 Yes [id number] 7.5mg Take 1 [facility] 7.5 mg 9-08 9109 tablet by ity of tablet 00:00: mouth [place] 00 daily. [facility] meloxicam 0 Yes [id number] 7.5mg Take 1 [facility] 7.5 mg 9-08 9109 tablet by ity of tablet 00:00: mouth [place] 00 daily. [facility] meloxicam 0 Yes [id number] 7.5mg Take 1 [facility] 7.5 mg 9-08 9109 tablet by ity of tablet 00:00: mouth [place] 00 daily. [facility] meloxicam 0 Yes [id number] 7.5mg Take 1 [facility] 7.5 mg 9-08 9109 tablet by ity of tablet 00:00: mouth [place] 00 daily. [facility] meloxicam 2020-0 Yes [id number] 7.5mg Take 1 [facility] 7.5 mg 9-08 9109 tablet by ity of tablet 00:00: mouth [place] 00 daily. [facility] meloxicam 2020-0 Yes [id number] 7.5mg Take 1 [facility] 7.5 mg 9-08 9109 tablet by ity of tablet 00:00: mouth [place] 00 daily. [facility] meloxicam 2020-0 Yes [id number] 7.5mg Take 1 [facility] 7.5 mg 9-08 9109 tablet by ity of tablet 00:00: mouth [place] 00 daily. [facility] meloxicam 2020-0 Yes [id number] 7.5mg Take 1 [facility] 7.5 mg 9-08 9109 tablet by ity of tablet 00:00: mouth [place] 00 daily. [facility] meloxicam 2020-0 Yes [id number] 7.5mg Take 1 [facility] 7.5 mg 9-08 9109 tablet by ity of tablet 00:00: mouth [place] 00 daily. [facility] meloxicam 2020-0 Yes [id number] 7.5mg Take 1 [facility] 7.5 mg 9-08 9109 tablet by ity of tablet 00:00: mouth [place] 00 daily. [facility] meloxicam 2020-0 Yes [id number] 7.5mg Take 1 [facility] 7.5 mg 9-08 9109 tablet by ity of tablet 00:00: mouth [place] 00 daily. [facility] meloxicam 2020-0 Yes [id number] 7.5mg Take 1 [facility] 7.5 mg 9-08 9109 tablet by ity of tablet 00:00: mouth [place] 00 daily. [facility] meloxicam 2020-0 Yes [id number] 7.5mg Take 1 [facility] 7.5 mg 9-08 9109 tablet by ity of tablet 00:00: mouth [place] 00 daily. [facility] meloxicam 2020-0 Yes [id number] 7.5mg Take 1 [facility] 7.5 mg 9-08 9109 tablet by ity of tablet 00:00: mouth [place] 00 daily. [facility] meloxicam 2020-0 Yes [id number] 7.5mg Take 1 [facility] 7.5 mg 9-08 9109 tablet by ity of tablet 00:00: mouth [place] 00 daily. [facility] meloxicam 2020-0 Yes [id number] 7.5mg Take 1 [facility] 7.5 mg 9-08 9109 tablet by ity of tablet 00:00: mouth [place] 00 daily. [facility] meloxicam 2020-0 Yes [id number] 7.5mg Take 1 [facility] 7.5 mg 9-08 9109 tablet by ity of tablet 00:00: mouth [place] 00 daily. [facility] meloxicam 2020-0 Yes [id number] 7.5mg Take 1 [facility] 7.5 mg 9-08 9109 tablet by ity of tablet 00:00: mouth [place] 00 daily. [facility] meloxicam 2020-0 Yes [id number] 7.5mg Take 1 [facility] 7.5 mg 9-08 9109 tablet by ity of tablet 00:00: mouth [place] 00 daily. [facility] meloxicam 2020-0 Yes [id number] 7.5mg Take 1 [facility] 7.5 mg 9-08 9109 tablet by ity of tablet 00:00: mouth [place] 00 daily. [facility] meloxicam 2020-0 Yes [id number] 7.5mg Take 1 [facility] 7.5 mg 9-08 9109 tablet by ity of tablet 00:00: mouth [place] 00 daily. [facility] meloxicam 2020-0 Yes [id number] 7.5mg Take 1 [facility] 7.5 mg 9-08 9109 tablet by ity of tablet 00:00: mouth [place] 00 daily. [facility] meloxicam 2020-0 Yes [id number] 7.5mg Take 1 [facility] 7.5 mg 9-08 9109 tablet by ity of tablet 00:00: mouth [place] 00 daily. [facility] meloxicam 2020-0 Yes [id number] 7.5mg Take 1 [facility] 7.5 mg 9-08 9109 tablet by ity of tablet 00:00: mouth [place] 00 daily. [facility] meloxicam 2020-0 Yes [id number] 7.5mg Take 1 [facility] 7.5 mg 9-08 9109 tablet by ity of tablet 00:00: mouth [place] 00 daily. [facility] meloxicam 2020-0 Yes [id number] 7.5mg Take 1 [facility] 7.5 mg 9-08 9109 tablet by ity of tablet 00:00: mouth [place] 00 daily. [facility] meloxicam 2020-0 Yes [id number] 7.5mg Take 1 [facility] 7.5 mg 9-08 9109 tablet by ity of tablet 00:00: mouth [place] 00 daily. [facility] meloxicam 2020-0 Yes [id number] 7.5mg Take 1 [facility] 7.5 mg 9-08 9109 tablet by ity of tablet 00:00: mouth [place] 00 daily. [facility] meloxicam 2020-0 Yes [id number] 7.5mg Take 1 [facility] 7.5 mg 9-08 9109 tablet by ity of tablet 00:00: mouth [place] 00 daily. [facility] meloxicam 2020-0 Yes [id number] 7.5mg Take 1 [facility] 7.5 mg 9-08 9109 tablet by ity of tablet 00:00: mouth [place] 00 daily. [facility] meloxicam 2020-0 Yes [id number] 7.5mg Take 1 [facility] 7.5 mg 9-08 9109 tablet by ity of tablet 00:00: mouth [place] 00 daily. [facility] meloxicam 2020-0 Yes [id number] 7.5mg Take 1 [facility] 7.5 mg 9-08 9109 tablet by ity of tablet 00:00: mouth [place] 00 daily. [facility] meloxicam 2020-0 Yes [id number] 7.5mg Take 1 [facility] 7.5 mg 9-08 9109 tablet by ity of tablet 00:00: mouth [place] 00 daily. [facility] meloxicam 2020-0 Yes [id number] 7.5mg Take 1 [facility] 7.5 mg 9-08 9109 tablet by ity of tablet 00:00: mouth [place] 00 daily. [facility] meloxicam 2020-0 Yes [id number] 7.5mg Take 1 [facility] 7.5 mg 9-08 9109 tablet by ity of tablet 00:00: mouth 00 daily. [facility] meloxicam 2020-0 Yes [id number] 7.5mg Take 1 [facility] 7.5 mg 9-08 9109 tablet by ity of tablet 00:00: mouth 00 daily. [facility] meloxicam 2020-0 Yes [id number] 7.5mg Take 1 [facility] 7.5 mg 9-08 9109 tablet by ity of tablet 00:00: mouth [place] 00 daily. [facility] diclofenac 1-0 Yes 75mg Take 1 Unive rs 75 mg EC 4-23 tablet by ity of tablet 00:00: mouth (two) Medical times Branch daily with meals. diclofenac 1-0 Yes 75mg Take 1 Unive [...] Branch daily with meals. azithromyci 2020-0 Yes [id number] 250mg Take 1 [facility] n 4-20 tablet by ity of (ZITHROMAX 00:00: mouth [place] Z-SEBAS) 250 00 SEE-INSTRU Med ical mg tablet CTIONS. Branch Take 500 mg day 1, then 250 mg days 2 to 5. Nitrofurant 2020-0 Yes [id number] 100mg Take 1 [facility] oin&Nit. 4-20 capsule by ity o f Macrocryst 00:00: [place] (MACROB[place] 00 (two) Medical 100 mg times Branch capsule daily. azithromyci 2020-0 Yes [id number] 250mg Take 1 [facility] n 4-20 tablet by ity of (ZITHROMAX 00:00: mouth [place] Z-SEBAS) 250 00 SEE-INSTRU Med ical mg tablet CTIONS. Branch Take 500 mg day 1, then 250 mg days 2 to 5. azithromyci 2020-0 Yes [id number] 250mg Take 1 [facility] n 4-20 tablet by ity of (ZITHROMAX 00:00: mouth [place] Z-SEBAS) 250 00 SEE-INSTRU Med ical mg tablet CTIONS. Branch Take 500 mg day 1, then 250 mg days 2 to 5. Nitrofurant 2020-0 Yes [id number] 100mg Take 1 [facility] oin&Nit. 4-20 capsule by ity o f [place] 00:00: [place] ([place]CROB[place] 00 (two) Medical 100 mg times Branch capsule daily. Nitrofurant 2020-0 Yes [id number] 100mg Take 1 [facility] oin&Nit. 4-20 capsule by ity o f [place]ryst 00:00: [place] ([place]CR[place] 00 (two) Medical 100 mg times Branch capsule daily. azithromyci 2020-0 Yes [id number] 250mg Take 1 [facility] n 4-20 tablet by ity of (ZITHROMAX 00:00: mouth [place] Z-SEBAS) 250 00 SEE-INSTRU Med ical mg tablet CTIONS. Branch Take 500 mg day 1, then 250 mg days 2 to 5. Nitrofurant 2020-0 Yes [id number] 100mg Take 1 [facility] oin&Nit. 4-20 capsule by ity o f [place]rocryst 00:00: mouth [place] (MACROBID[place] 00 (two) Medical 100 mg times Branch capsule daily. azithromyci 2020-0 Yes [id number] 250mg Take 1 [facility] n 4-20 tablet by ity of (ZITHROMAX 00:00: mouth [place] Z-SEBAS) 250 00 SEE-INSTRU Med ical mg tablet CTIONS. Branch Take 500 mg day 1, then 250 mg days 2 to 5. Nitrofurant 2020-0 Yes [id number] 100mg Take 1 [facility] oin&Nit. 4-20 capsule by ity o f [place]ryst 00:00: mouth [place] ([place]CROB[place] 00 (two) Medical 100 mg times Branch capsule daily. azithromyci 2020-0 Yes [id number] 250mg Take 1 [facility] n 4-20 tablet by ity of (ZITHROMAX 00:00: mouth [place] Z-SEBAS) 250 00 SEE-INSTRU Med ical mg tablet CTIONS. Branch Take 500 mg day 1, then 250 mg days 2 to 5. Nitrofurant 2020-0 Yes [id number] 100mg Take 1 [facility] oin&Nit. 4-20 capsule by ity o f [place]rocryst 00:00: mouth [place] (MACROBID) 00 (two) Medical 100 mg times Branch capsule daily. azithromyci 2020-0 Yes [id number] 250mg Take 1 [facility] n 4-20 tablet by ity of (ZITHROMAX 00:00: mouth [place] Z-SEBAS) 250 00 SEE-INSTRU Med ical mg tablet CTIONS. Branch Take 500 mg day 1, then 250 mg days 2 to 5. Nitrofurant 2020-0 Yes [id number] 100mg Take 1 [facility] oin&Nit. 4-20 capsule by ity o f [place]rocryst 00:00: mouth [place] (MACROBID[place] 00 (two) Medical 100 mg times Branch capsule daily. azithromyci 2020-0 Yes [id number] 250mg Take 1 [facility] n 4-20 tablet by ity of (ZITHROMAX 00:00: mouth [place] Z-SEBAS) 250 00 SEE-INSTRU Med ical mg tablet CTIONS. Branch Take 500 mg day 1, then 250 mg days 2 to 5. Nitrofurant 2020-0 Yes [id number] 100mg Take 1 [facility] oin&Nit. 4-20 capsule by ity o f [place]rocryst 00:00: mouth [place] (MACROBID) 00 (two) Medical 100 mg times Branch capsule daily. azithromyci 2020-0 Yes [id number] 250mg Take 1 [facility] n 4-20 tablet by ity of (ZITHROMAX 00:00: mouth [place] Z-SEBAS) 250 00 SEE-INSTRU Med ical mg tablet CTIONS. Branch Take 500 mg day 1, then 250 mg days 2 to 5. Nitrofurant 2020-0 Yes [id number] 100mg Take 1 [facility] oin&Nit. 4-20 capsule by ity o f [place]ryst 00:00: mouth [place] ([place]CROB[place] 00 (two) Medical 100 mg times Branch capsule daily. azithromyci 2020-0 Yes [id number] 250mg Take 1 [facility] n 4-20 tablet by ity of (ZITHROMAX 00:00: mouth [place] Z-SEBAS) 250 00 SEE-INSTRU Med ical mg tablet CTIONS. Branch Take 500 mg day 1, then 250 mg days 2 to 5. Nitrofurant 2020-0 Yes [id number] 100mg Take 1 [facility] oin&Nit. 4-20 capsule by ity o f [place]rocryst 00:00: mouth [place] (MACROBID) 00 (two) Medical 100 mg times Branch capsule daily. azithromyci 2020-0 Yes [id number] 250mg Take 1 [facility] n 4-20 tablet by ity of (ZITHROMAX 00:00: mouth [place] Z-SEBAS) 250 00 SEE-INSTRU Med ical mg tablet CTIONS. Branch Take 500 mg day 1, then 250 mg days 2 to 5. Nitrofurant 2020-0 Yes [id number] 100mg Take 1 [facility] oin&Nit. 4-20 capsule by ity o f [place]rocryst 00:00: mouth [place] (MACROBID) 00 (two) Medical 100 mg times Branch capsule daily. azithromyci 2020-0 Yes [id number] 250mg Take 1 [facility] n 4-20 tablet by ity of (ZITHROMAX 00:00: mouth [place] Z-SEBAS) 250 00 SEE-INSTRU Med ical mg tablet CTIONS. Branch Take 500 mg day 1, then 250 mg days 2 to 5. Nitrofurant 2020-0 Yes [id number] 100mg Take 1 [facility] oin&Nit. 4-20 capsule by ity o f [place]rocryst 00:00: mouth [place] (MACROBID[place] 00 (two) Medical 100 mg times Branch capsule daily. azithromyci 2020-0 Yes [id number] 250mg Take 1 [facility] n 4-20 tablet by ity of (ZITHROMAX 00:00: mouth [place] Z-SEBAS) 250 00 SEE-INSTRU Med ical mg tablet CTIONS. Branch Take 500 mg day 1, then 250 mg days 2 to 5. Nitrofurant 2020-0 Yes [id number] 100mg Take 1 [facility] oin&Nit. 4-20 capsule by ity o f [place]ryst 00:00: mouth [place] (MACROBID) 00 (two) Medical 100 mg times Branch capsule daily. azithromyci 2020-0 Yes [id number] 250mg Take 1 [facility] n 4-20 tablet by ity of (ZITHROMAX 00:00: mouth [place] Z-SEBAS) 250 00 SEE-INSTRU Med ical mg tablet CTIONS. Branch Take 500 mg day 1, then 250 mg days 2 to 5. Nitrofurant 2020-0 Yes [id number] 100mg Take 1 [facility] oin&Nit. 4-20 capsule by ity o f [place]rocryst 00:00: mouth [place] (MACROBID) 00 (two) Medical 100 mg times Branch capsule daily. azithromyci 2020-0 Yes [id number] 250mg Take 1 [facility] n 4-20 tablet by ity of (ZITHROMAX 00:00: mouth [place] Z-SEBAS) 250 00 SEE-INSTRU Med ical mg tablet CTIONS. Branch Take 500 mg day 1, then 250 mg days 2 to 5. Nitrofurant 2020-0 Yes [id number] 100mg Take 1 [facility] oin&Nit. 4-20 capsule by ity o f [place]ryst 00:00: mouth [place] ([place]CROB[place]) 00 (two) Medical 100 mg times Branch capsule daily. azithromyci 2020-0 Yes [id number] 250mg Take 1 [facility] n 4-20 tablet by ity of (ZITHROMAX 00:00: mouth [place] Z-SEBAS) 250 00 SEE-INSTRU Med ical mg tablet CTIONS. Branch Take 500 mg day 1, then 250 mg days 2 to 5. Nitrofurant 2020-0 Yes [id number] 100mg Take 1 [facility] oin&Nit. 4-20 capsule by ity o f [place]ryst 00:00: mouth [place] (MACROBID) 00 (two) Medical 100 mg times Branch capsule daily. azithromyci 2020-0 Yes [id number] 250mg Take 1 [facility] n 4-20 tablet by ity of (ZITHROMAX 00:00: mouth [place] Z-SEBAS) 250 00 SEE-INSTRU Med ical mg tablet CTIONS. Branch Take 500 mg day 1, then 250 mg days 2 to 5. Nitrofurant 2020-0 Yes [id number] 100mg Take 1 [facility] oin&Nit. 4-20 capsule by ity o f [place] 00:00: mouth [place] (MACROBID) 00 (two) Medical 100 mg times Branch capsule daily. azithromyci 2020-0 Yes [id number] 250mg Take 1 [facility] n 4-20 tablet by ity of (ZITHROMAX 00:00: mouth [place] Z-SEBAS) 250 00 SEE-INSTRU Med ical mg tablet CTIONS. Branch Take 500 mg day 1, then 250 mg days 2 to 5. Nitrofurant 2020-0 Yes [id number] 100mg Take 1 [facility] oin&Nit. 4-20 capsule by ity o f [place] 00:00: mouth [place] (MACROBID) 00 (two) Medical 100 mg times Branch capsule daily. azithromyci 2020-0 Yes [id number] 250mg Take 1 [facility] n 4-20 tablet by ity of (ZITHROMAX 00:00: mouth [place] Z-SEBAS) 250 00 SEE-INSTRU Med ical mg tablet CTIONS. Branch Take 500 mg day 1, then 250 mg days 2 to 5. Nitrofurant 2020-0 Yes [id number] 100mg Take 1 [facility] oin&Nit. 4-20 capsule by ity o f [place] 00:00: mouth [place] (MACROBID) 00 (two) Medical 100 mg times Branch capsule daily. azithromyci 2020-0 Yes [id number] 250mg Take 1 [facility] n 4-20 tablet by ity of (ZITHROMAX 00:00: mouth [place] Z-SEBAS) 250 00 SEE-INSTRU Med ical mg tablet CTIONS. Branch Take 500 mg day 1, then 250 mg days 2 to 5. Nitrofurant 2020-0 Yes [id number] 100mg Take 1 [facility] oin&Nit. 4-20 capsule by ity o f [place] 00:00: mouth [place] (MACROBID) 00 (two) Medical 100 mg times Branch capsule daily. azithromyci 2020-0 Yes [id number] 250mg Take 1 [facility] n 4-20 tablet by ity of (ZITHROMAX 00:00: mouth [place] Z-SEBAS) 250 00 SEE-INSTRU Med ical mg tablet CTIONS. Branch Take 500 mg day 1, then 250 mg days 2 to 5. Nitrofurant 2020-0 Yes [id number] 100mg Take 1 [facility] oin&Nit. 4-20 capsule by ity o f [place]ryst 00:00: mouth [place] (MACROBID) 00 (two) Medical 100 mg times Branch capsule daily. azithromyci 2020-0 Yes [id number] 250mg Take 1 [facility] n 4-20 tablet by ity of (ZITHROMAX 00:00: mouth [place] Z-SEBAS) 250 00 SEE-INSTRU Med ical mg tablet CTIONS. Branch Take 500 mg day 1, then 250 mg days 2 to 5. Nitrofurant 2020-0 Yes [id number] 100mg Take 1 [facility] oin&Nit. 4-20 capsule by ity o f [place] 00:00: mouth [place] (MACROBID) 00 (two) Medical 100 mg times Branch capsule daily. azithromyci 2020-0 Yes [id number] 250mg Take 1 [facility] n 4-20 tablet by ity of (ZITHROMAX 00:00: mouth [place] Z-SEBAS) 250 00 SEE-INSTRU Med ical mg tablet CTIONS. Branch Take 500 mg day 1, then 250 mg days 2 to 5. Nitrofurant 2020-0 Yes [id number] 100mg Take 1 [facility] oin&Nit. 4-20 capsule by ity o f [place] 00:00: mouth [place] ([place]CROB[place]) 00 (two) Medical 100 mg times Branch capsule daily. azithromyci 2020-0 Yes [id number] 250mg Take 1 [facility] n 4-20 tablet by ity of (ZITHROMAX 00:00: mouth [place] Z-SEBAS) 250 00 SEE-INSTRU Med ical mg tablet CTIONS. Branch Take 500 mg day 1, then 250 mg days 2 to 5. azithromyci 2020-0 Yes [id number] 250mg Take 1 [facility] n 4-20 tablet by ity of (ZITHROMAX 00:00: mouth [place] Z-SEBAS) 250 00 SEE-INSTRU Med ical mg tablet CTIONS. Branch Take 500 mg day 1, then 250 mg days 2 to 5. Nitrofurant 2020-0 Yes [id number] 100mg Take 1 [facility] oin&Nit. 4-20 capsule by ity o f [place] 00:00: mouth [place] (MACROBID) 00 (two) Medical 100 mg times Branch capsule daily. Nitrofurant 2020-0 Yes [id number] 100mg Take 1 [facility] oin&Nit. 4-20 capsule by ity o f [facility]ryst 00:00: mouth [place] (MACROBID) 00 (two) Medical 100 mg times Branch capsule daily. azithromyci 2020-0 Yes [id number] 250mg Take 1 [facility] n 4-20 tablet by ity of (ZITHROMAX 00:00: mouth [place] Z-SEBAS) 250 00 SEE-INSTRU Med ical mg tablet CTIONS. Branch Take 500 mg day 1, then 250 mg days 2 to 5. Nitrofurant 2020-0 Yes [id number] 100mg Take 1 [facility] oin&Nit. 4-20 capsule by ity o f [facility] 00:00: mouth [place] (MACROBID) 00 (two) Medical 100 mg times Branch capsule daily. azithromyci 2020-0 Yes [id number] 250mg Take 1 [facility] n 4-20 tablet by ity of (ZITHROMAX 00:00: mouth [place] Z-SEBAS) 250 00 SEE-INSTRU Med ical mg tablet CTIONS. Branch Take 500 mg day 1, then 250 mg days 2 to 5. Nitrofurant 2020-0 Yes [id number] 100mg Take 1 [facility] oin&Nit. 4-20 capsule by ity o f [facility] 00:00: mouth [place] (MACROBID) 00 (two) Medical 100 mg times Branch capsule daily. azithromyci 2020-0 Yes [id number] 250mg Take 1 [facility] n 4-20 tablet by ity of (ZITHROMAX 00:00: mouth [place] Z-SEBAS) 250 00 SEE-INSTRU Med ical mg tablet CTIONS. Branch Take 500 mg day 1, then 250 mg days 2 to 5. Nitrofurant 2020-0 Yes [id number] 100mg Take 1 [facility] oin&Nit. 4-20 capsule by ity o f [facility] 00:00: mouth [place] (MACROBID) 00 (two) Medical 100 mg times Branch capsule daily. azithromyci 2020-0 Yes [id number] 250mg Take 1 [facility] n 4-20 tablet by ity of (ZITHROMAX 00:00: mouth [place] Z-SEBAS) 250 00 SEE-INSTRU Med ical mg tablet CTIONS. Branch Take 500 mg day 1, then 250 mg days 2 to 5. Nitrofurant 2020-0 Yes [id number] 100mg Take 1 [facility] oin&Nit. 4-20 capsule by ity o f [facility] 00:00: mouth [place] (MACROBID) 00 (two) Medical 100 mg times Branch capsule daily. azithromyci 2020-0 Yes [id number] 250mg Take 1 [facility] n 4-20 tablet by ity of (ZITHROMAX 00:00: mouth [place] Z-SEBAS) 250 00 SEE-INSTRU Med ical mg tablet CTIONS. Branch Take 500 mg day 1, then 250 mg days 2 to 5. Nitrofurant 2020-0 Yes [id number] 100mg Take 1 [facility] oin&Nit. 4-20 capsule by ity o f [facility] 00:00: mouth [place] (MACROBID) 00 (two) Medical 100 mg times Branch capsule daily. azithromyci 2020-0 Yes [id number] 250mg Take 1 [facility] n 4-20 tablet by ity of (ZITHROMAX 00:00: mouth [place] Z-SEBAS) 250 00 SEE-INSTRU Med ical mg tablet CTIONS. Branch Take 500 mg day 1, then 250 mg days 2 to 5. Nitrofurant 2020-0 Yes [id number] 100mg Take 1 [facility] oin&Nit. 4-20 capsule by ity o f [facility] 00:00: mouth [place] (MACROBID) 00 (two) Medical 100 mg times Branch capsule daily. azithromyci 2020-0 Yes [id number] 250mg Take 1 [facility] n 4-20 tablet by ity of (ZITHROMAX 00:00: mouth [place] Z-SEBAS) 250 00 SEE-INSTRU Med ical mg tablet CTIONS. Branch Take 500 mg day 1, then 250 mg days 2 to 5. Nitrofurant 2020-0 Yes [id number] 100mg Take 1 [facility] oin&Nit. 4-20 capsule by ity o f [facility] 00:00: mouth [place] (MACROBID) 00 (two) Medical 100 mg times Branch capsule daily. azithromyci 2020-0 Yes [id number] 250mg Take 1 [facility] n 4-20 tablet by ity of (ZITHROMAX 00:00: mouth [place] Z-SEBAS) 250 00 SEE-INSTRU Med ical mg tablet CTIONS. Branch Take 500 mg day 1, then 250 mg days 2 to 5. Nitrofurant 2020-0 Yes [id number] 100mg Take 1 [facility] oin&Nit. 4-20 capsule by ity o f [facility] 00:00: mouth [place] (MACROBID) 00 (two) Medical 100 mg times Branch capsule daily. azithromyci 2020-0 Yes [id number] 250mg Take 1 [facility] n 4-20 tablet by ity of (ZITHROMAX 00:00: mouth [place] Z-SEBAS) 250 00 SEE-INSTRU Med ical mg tablet CTIONS. Branch Take 500 mg day 1, then 250 mg days 2 to 5. Nitrofurant 2020-0 Yes [id number] 100mg Take 1 [facility] oin&Nit. 4-20 capsule by ity o f [facility] 00:00: mouth [place] (MACROBID) 00 (two) Medical 100 mg times Branch capsule daily. azithromyci 2020-0 Yes [id number] 250mg Take 1 [facility] n 4-20 tablet by ity of (ZITHROMAX 00:00: mouth [place] Z-SEBAS) 250 00 SEE-INSTRU Med ical mg tablet CTIONS. Branch Take 500 mg day 1, then 250 mg days 2 to 5. Nitrofurant 2020-0 Yes [id number] 100mg Take 1 [facility] oin&Nit. 4-20 capsule by ity o f [facility] 00:00: mouth [place] (MACROBID) 00 (two) Medical 100 mg times Branch capsule daily. azithromyci 2020-0 Yes [id number] 250mg Take 1 [facility] n 4-20 tablet by ity of (ZITHROMAX 00:00: mouth [place] Z-SEBAS) 250 00 SEE-INSTRU Med ical mg tablet CTIONS. Branch Take 500 mg day 1, then 250 mg days 2 to 5. Nitrofurant 2020-0 Yes [id number] 100mg Take 1 [facility] oin&Nit. 4-20 capsule by ity o f [facility] 00:00: mouth [place] (MACROBID) 00 (two) Medical 100 mg times Branch capsule daily. azithromyci 2020-0 Yes [id number] 250mg Take 1 [facility] n 4-20 tablet by ity of (ZITHROMAX 00:00: mouth [place] Z-SEBAS) 250 00 SEE-INSTRU Med ical mg tablet CTIONS. Branch Take 500 mg day 1, then 250 mg days 2 to 5. Nitrofurant 2020-0 Yes [id number] 100mg Take 1 [facility] oin&Nit. 4-20 capsule by [facility] [place] ([place]CR[place] (two) Medical 100 mg times Branch capsule daily. azithromyci 2020-0 Yes [id number] 250mg Take 1 [facility] n 4-20 tablet by ity of (ZITHROMAX 00:00: mouth [place] Z-SEBAS) 250 00 SEE-INSTRU Med ical mg tablet CTIONS. Branch Take 500 mg day 1, then 250 mg days 2 to 5. Nitrofurant 2020-0 Yes [id number] 100mg Take 1 [facility] oin&Nit. 4-20 capsule by [facility] [place] ([place]CR[place] 00 (two) Medical 100 mg times Branch capsule daily. azithromyci 2020-0 Yes [id number] 250mg Take 1 [facility] n 4-20 tablet by ity of (ZITHROMAX 00:00: mouth [place] Z-SEBAS) 250 00 SEE-INSTRU Med ical mg tablet CTIONS. Branch Take 500 mg day 1, then 250 mg days 2 to 5. Nitrofurant 2020-0 Yes [id number] 100mg Take 1 [facility] oin&Nit. 4-20 capsule by [facility] o [place] ([place]CR[place]ID[place] 00 (two) Medical 100 mg times Branch capsule daily. azithromyci 2020-0 Yes [id number] 250mg Take 1 [facility] n 4-20 tablet by ity of (ZITHROMAX 00:00: mouth [place] Z-SEBAS) 250 00 SEE-INSTRU Med ical mg tablet CTIONS. Branch Take 500 mg day 1, then 250 mg days 2 to 5. Nitrofurant 2020-0 Yes [id number] 100mg Take 1 [facility] oin&Nit. 4-20 capsule by [facility] o [place] 00:[place]: [place] ([place]CROBID[place] 00 (two) Medical 100 mg times Branch capsule daily. azithromyci 2020-0 Yes [id number] 250mg Take 1 [facility] n 4-20 tablet by ity of (ZITHROMAX 00:00: mouth [place] Z-SEBAS) 250 00 SEE-INSTRU Med ical mg tablet CTIONS. Branch Take 500 mg day 1, then 250 mg days 2 to 5. Nitrofurant 2020-0 Yes [id number] 100mg Take 1 [facility] oin&Nit. 4-20 capsule by [facility] o [place]: [place] ([place]CR[place]ID[place] 00 (two) Medical 100 mg times Branch capsule daily. azithromyci 2020-0 Yes [id number] 250mg Take 1 [facility] n 4-20 tablet by ity of (ZITHROMAX 00:00: mouth [place] Z-SEBAS) 250 00 SEE-INSTRU Med ical mg tablet CTIONS. Branch Take 500 mg day 1, then 250 mg days 2 to 5. Nitrofurant 2020-0 Yes [id number] 100mg Take 1 [facility] oin&Nit. 4-20 capsule by [facility] o [place]: [place] ([place]CR[place]ID) 00 (two) Medical 100 mg times Branch capsule daily. azithromyci 2020-0 Yes [id number] 250mg Take 1 [facility] n 4-20 tablet by ity of (ZITHROMAX 00:00: mouth [place] Z-SEBAS) 250 00 SEE-INSTRU Med ical mg tablet CTIONS. Branch Take 500 mg day 1, then 250 mg days 2 to 5. Nitrofurant 2020-0 Yes [id number] 100mg Take 1 [facility] oin&Nit. 4-20 capsule by [facility] o [place] ([place]CR[place]) 00 (two) Medical 100 mg times Branch capsule daily. azithromyci 2020-0 Yes [id number] 250mg Take 1 [facility] n 4-20 tablet by ity of (ZITHROMAX 00:00: mouth [place] Z-SEBAS) 250 00 SEE-INSTRU Med ical mg tablet CTIONS. Branch Take 500 mg day 1, then 250 mg days 2 to 5. Nitrofurant 2020-0 Yes [id number] 100mg Take 1 [facility] oin&Nit. 4-20 capsule by [facility] o [place]: [place] ([place]CR[place]ID) 00 (two) Medical 100 mg times Branch capsule daily. azithromyci 2020-0 Yes [id number] 250mg Take 1 [facility] n 4-20 tablet by ity of (ZITHROMAX 00:00: mouth [place] Z-SEBAS) 250 00 SEE-INSTRU Med ical mg tablet CTIONS. Branch Take 500 mg day 1, then 250 mg days 2 to 5. Nitrofurant 2020-0 Yes [id number] 100mg Take 1 [facility] oin&Nit. 4-20 capsule by [facility] o [facility] [place]: [place] ([place]CR[place]ID) 00 (two) Medical 100 mg times Branch capsule daily. azithromyci 2020-0 Yes [id number] 250mg Take 1 [facility] n 4-20 tablet by ity of (ZITHROMAX 00:00: mouth [place] Z-SEBAS) 250 00 SEE-INSTRU Med ical mg tablet CTIONS. Branch Take 500 mg day 1, then 250 mg days 2 to 5. Nitrofurant 2020-0 Yes [id number] 100mg Take 1 [facility] oin&Nit. 4-20 capsule by [facility] o [facility] [place] 00:[place]: [place] ([place]CROBID) 00 (two) Medical 100 mg times Branch capsule daily. azithromyci 2020-0 Yes [id number] 250mg Take 1 [facility] n 4-20 tablet by ity of (ZITHROMAX 00:00: mouth [place] Z-SEBAS) 250 00 SEE-INSTRU Med ical mg tablet CTIONS. Branch Take 500 mg day 1, then 250 mg days 2 to 5. Nitrofurant 2020-0 Yes [id number] 100mg Take 1 [facility] oin&Nit. 4-20 capsule by [facility] o [place] 00:[place]: [place] (MACROBID) 00 (two) Medical 100 mg times Branch capsule daily. azithromyci 2020-0 Yes [id number] 250mg Take 1 [facility] n 4-20 tablet by ity of (ZITHROMAX 00:00: mouth [place] Z-SEBAS) 250 00 SEE-INSTRU Med ical mg tablet CTIONS. Branch Take 500 mg day 1, then 250 mg days 2 to 5. Nitrofurant 2020-0 Yes [id number] 100mg Take 1 [facility] oin&Nit. 4-20 capsule by [facility] o [place] 00:[place]: [place] (MACROBID) 00 (two) Medical 100 mg times Branch capsule daily. azithromyci 2020-0 Yes [id number] 250mg Take 1 [facility] n 4-20 tablet by ity of (ZITHROMAX 00:00: mouth [place] Z-SEBAS) 250 00 SEE-INSTRU Med ical mg tablet CTIONS. Branch Take 500 mg day 1, then 250 mg days 2 to 5. Nitrofurant 2020-0 Yes [id number] 100mg Take 1 [facility] oin&Nit. 4-20 capsule by [facility] o [place] 00:[place]: [place] ([place]CROBID) 00 (two) Medical 100 mg times Branch capsule daily. azithromyci 2020-0 Yes [id number] 250mg Take 1 [facility] n 4-20 tablet by ity of (ZITHROMAX 00:00: mouth [place] Z-SEBAS) 250 00 SEE-INSTRU Med ical mg tablet CTIONS. Branch Take 500 mg day 1, then 250 mg days 2 to 5. Nitrofurant 2020-0 Yes [id number] 100mg Take 1 [facility] oin&Nit. 4-20 capsule by [facility] o [facility] [place] 00:[place]: [place] ([place]CROBID) 00 (two) Medical 100 mg times Branch capsule daily. azithromyci 2020-0 Yes [id number] 250mg Take 1 [facility] n 4-20 tablet by ity of (ZITHROMAX 00:00: mouth [place] Z-SEBAS) 250 00 SEE-INSTRU Med ical mg tablet CTIONS. Branch Take 500 mg day 1, then 250 mg days 2 to 5. Nitrofurant 2020-0 Yes [id number] 100mg Take 1 [facility] oin&Nit. 4-20 capsule by [facility] o [facility] [place] 00:[place]: [place] ([place]CROBID) 00 (two) Medical 100 mg times Branch capsule daily. azithromyci 2020-0 Yes [id number] 250mg Take 1 [facility] n 4-20 tablet by ity of (ZITHROMAX 00:00: mouth [place] Z-SEBAS) 250 00 SEE-INSTRU Med ical mg tablet CTIONS. Branch Take 500 mg day 1, then 250 mg days 2 to 5. Nitrofurant 2020-0 Yes [id number] 100mg Take 1 [facility] oin&Nit. 4-20 capsule by [facility] o [facility] [place] 00:[place]: [place] ([place]CROBID) 00 (two) Medical 100 mg times Branch capsule daily. azithromyci 2020-0 Yes [id number] 250mg Take 1 [facility] n 4-20 tablet by ity of (ZITHROMAX 00:00: mouth [place] Z-SEBAS) 250 00 SEE-INSTRU Med ical mg tablet CTIONS. Branch Take 500 mg day 1, then 250 mg days 2 to 5. Nitrofurant 2020-0 Yes [id number] 100mg Take 1 [facility] oin&Nit. 4-20 capsule by [facility] o [facility] [place] 00:[place]: [place] ([place]CROBID) 00 (two) Medical 100 mg times Branch capsule daily. azithromyci 2020-0 Yes [id number] 250mg Take 1 [facility] n 4-20 tablet by ity of (ZITHROMAX 00:00: mouth [place] Z-SEBAS) 250 00 SEE-INSTRU Med ical mg tablet CTIONS. Branch Take 500 mg day 1, then 250 mg days 2 to 5. Nitrofurant 2020-0 Yes [id number] 100mg Take 1 [facility] oin&Nit. 4-20 capsule by [facility] o [facility] [place] 00:[place]: [place] ([place]CROBID) 00 (two) Medical 100 mg times Branch capsule daily. azithromyci 2020-0 Yes [id number] 250mg Take 1 [facility] n 4-20 tablet by ity of (ZITHROMAX 00:00: mouth [place] Z-SEBAS) 250 00 SEE-INSTRU Med ical mg tablet CTIONS. Branch Take 500 mg day 1, then 250 mg days 2 to 5. Nitrofurant 2020-0 Yes [id number] 100mg Take 1 [facility] oin&Nit. 4-20 capsule by [facility] o f [place] 00:[place]: [place] ([place]CROBID) 00 (two) Medical 100 mg times Branch capsule daily. azithromyci 2020-0 Yes [id number] 250mg Take 1 [facility] n 4-20 tablet by ity of (ZITHROMAX 00:00: mouth [place] Z-SEBAS) 250 00 SEE-INSTRU Med ical mg tablet CTIONS. Branch Take 500 mg day 1, then 250 mg days 2 to 5. Nitrofurant 2020-0 Yes [id number] 100mg Take 1 [facility] oin&Nit. 4-20 capsule by [facility] o f [place] 00:00: [place] (MACROBID) 00 (two) Medical 100 mg times Branch capsule daily. azithromyci 2020-0 Yes [id number] 250mg Take 1 [facility] n 4-20 tablet by ity of (ZITHROMAX 00:00: mouth [place] Z-SEBAS) 250 00 SEE-INSTRU Med ical mg tablet CTIONS. Branch Take 500 mg day 1, then 250 mg days 2 to 5. Nitrofurant 2020-0 Yes [id number] 100mg Take 1 [facility] oin&Nit. 4-20 capsule by ity o f [place] 00:00: [place] (MACROBID) 00 (two) Medical 100 mg times Branch capsule daily. azithromyci 2020-0 Yes [id number] 250mg Take 1 [facility] n 4-20 tablet by ity of (ZITHROMAX 00:00: mouth [place] Z-SEBAS) 250 00 SEE-INSTRU Med ical mg tablet CTIONS. Branch Take 500 mg day 1, then 250 mg days 2 to 5. Nitrofurant 2020-0 Yes [id number] 100mg Take 1 [facility] oin&Nit. 4-20 capsule by ity o f [place] 00:00: [place] (MACROBID) 00 (two) Medical 100 mg times Branch capsule daily. azithromyci 2020-0 Yes [id number] 250mg Take 1 [facility] n 4-20 tablet by ity of (ZITHROMAX 00:00: mouth [place] Z-SEBAS) 250 00 SEE-INSTRU Med ical mg tablet CTIONS. Branch Take 500 mg day 1, then 250 mg days 2 to 5. Nitrofurant 2020-0 Yes [id number] 100mg Take 1 [facility] oin&Nit. 4-20 capsule by ity o f [place] 00:00: [place] (MACROBID) 00 (two) Medical 100 mg times Branch capsule daily. azithromyci 2020-0 Yes [id number] 250mg Take 1 [facility] n 4-20 tablet by ity of (ZITHROMAX 00:00: mouth [place] Z-SEBAS) 250 00 SEE-INSTRU Med ical mg tablet CTIONS. Branch Take 500 mg day 1, then 250 mg days 2 to 5. Nitrofurant 2020-0 Yes [id number] 100mg Take 1 [facility] oin&Nit. 4-20 capsule by [facility]y o f [place] 00:00: [place] (MACROBID) 00 (two) Medical 100 mg times Branch capsule daily. azithromyci 2020-0 Yes [id number] 250mg Take 1 [facility] n 4-20 tablet by ity of (ZITHROMAX 00:00: mouth [place] Z-SEBAS) 250 00 SEE-INSTRU Med ical mg tablet CTIONS. Branch Take 500 mg day 1, then 250 mg days 2 to 5. Nitrofurant 2020-0 Yes [id number] 100mg Take 1 [facility] oin&Nit. 4-20 capsule by [facility] o f [place] 00:00: [place] (MACROBID) 00 (two) Medical 100 mg times Branch capsule daily. azithromyci 2020-0 Yes [id number] 250mg Take 1 [facility] n 4-20 tablet by ity of (ZITHROMAX 00:00: mouth [place] Z-SEBAS) 250 00 SEE-INSTRU Med ical mg tablet CTIONS. Branch Take 500 mg day 1, then 250 mg days 2 to 5. Nitrofurant 2020-0 Yes [id number] 100mg Take 1 [facility] oin&Nit. 4-20 capsule by [facility]y o f [place] 00:00: [place] (MACROBID) 00 (two) Medical 100 mg times Branch capsule daily. azithromyci 2020-0 Yes [id number] 250mg Take 1 [facility] n 4-20 tablet by ity of (ZITHROMAX 00:00: mouth [place] Z-SEBAS) 250 00 SEE-INSTRU Med ical mg tablet CTIONS. Branch Take 500 mg day 1, then 250 mg days 2 to 5. Nitrofurant 2020-0 Yes [id number] 100mg Take 1 [facility] oin&Nit. 4-20 capsule by [facility]y o f [place] 00:00: [place] (MACROBID) 00 (two) Medical 100 mg times Branch capsule daily. azithromyci 2021-0 Yes [id number] 250mg Take 1 [facility] n 4-20 tablet by ity of (ZITHROMAX 00:00: mouth [place] Z-SEBAS) 250 00 SEE-INSTRU Med ical mg tablet CTIONS. Branch Take 500 mg day 1, then 250 mg days 2 to 5. Nitrofurant Yes [id number] 100mg Take 1 [facility] oin&Nit. 4-20 capsule by [facility] o f [place] 00:[place]: [place] ([place]CROBID[place] 00 (two) Medical 100 mg times Branch capsule daily. vit 2018- Yes 2{capsu Take 2 Univers C/E/Zn/natividad 9-27 le} capsules ity of r/lutein/ze 17:09: by mouth [place] axan 07 daily. Medical (PRESERVISI Branch ON AREDS-2 ORAL) vit Yes 2{capsu Take 2 Univers C/E/Zn/natividad 9-27 le} capsules ity of r/lutein/ze 17:09: by mouth [place] axan 07 daily. Medical (PRESERVISI Branch ON AREDS-2 ORAL) vit 2018- Yes 2{capsu Take 2 Univers C/E/Zn/natividad 9-27 le} capsules ity of r/lutein/ze 17:09: by mouth [place] axan 07 daily. Medical (PRESERVISI Branch ON AREDS-2 ORAL) vit 2018- Yes 2{capsu Take 2 Univers C/E/Zn/natividad 9-27 le} capsules ity of r/lutein/ze 17:09: by mouth [place] axan 07 daily. Medical (PRESERVISI Branch ON AREDS-2 ORAL) vit 2019- Yes 2{capsu Take 2 Univers C/E/Zn/natividad 9-27 [...] 1-22 ity of ephedrine-D 00:00: [facility] (BROMFED 00 Medical DM) 2-30-10 Branch mg/5 mL syrup bromphenira 2015-07 Yes [place] k[place] mine-pseudo 1-22 ity of ephedrine-D 00:00: [facility] (BROMFED 00 Medical DM) 2-30-10 Branch mg/5 mL syrup bromphenira 2015-07 Yes [place] mine-pseudo 1-22 ity of ephedrine-D 00:00: [facility] (BROMFED 00 Medical DM) 2-30-10 Branch mg/5 mL syrup bromphenira 2015-07 Yes [place] mine-pseudo 1-22 ity of ephedrine-D 00:00: [facility] (BROMFED 00 Medical DM) 2-30-10 Branch mg/5 mL syrup bromphenira 2015-07 Yes [place] mine-pseudo 1-22 ity of ephedrine-D 00:00: [facility] (BROMFED 00 Medical DM) 2-30-10 Branch mg/5 mL syrup bromphenira 2015-07 Yes [place] mine-pseudo 1-22 ity of ephedrine-D 00:00: [facility] (BROMFED 00 Medical DM) 2-30-10 Branch mg/5 mL syrup bromphenira 2015-07 Yes [place] mine-pseudo 1-22 ity of ephedrine-D 00:00: [facility] (BROMFED 00 Medical DM) 2-30-10 Branch mg/5 mL syrup bromphenira 2015-07 Yes [place] mine-pseudo 1-22 ity of ephedrine-D 00:00: [facility] (BROMFED 00 Medical DM) 2-30-10 Branch mg/5 mL syrup bromphenira 2015-07 Yes [place] mine-pseudo 1-22 ity of ephedrine-D 00:00: [facility] (BROMFED 00 Medical DM) 2-30-10 Branch mg/5 mL syrup bromphenira 2016-1 Yes [place] mine-pseudo 1-22 ity of ephedrine-D 00:00: [facility] (BROMFED 00 Medical DM) 2-30-10 Branch mg/5 mL syrup bromphenira 2016 Yes [place] mine-pseudo 1-22 ity of ephedrine-D 00:00: [facility] (BROMFED 00 Medical DM) 2-30-10 Branch mg/5 mL syrup bromphenira 2016 Yes [place] mine-pseudo 1-22 ity of ephedrine-D 00:00: [facility] (BROMFED 00 Medical DM) 2-30-10 Branch mg/5 mL syrup bromphenira 2015-07 Yes [place] mine-pseudo 1-22 ity of ephedrine-D 00:00: [facility] (BROMFED 00 Medical DM) 2-30-10 Branch mg/5 mL syrup bromphenira 2015-07 Yes [place] mine-pseudo 1-22 ity of ephedrine-D 00:00: [facility] (BROMFED 00 Medical DM) 2-30-10 Branch mg/5 mL syrup bromphenira 2015-07 Yes [place] mine-pseudo 1-22 ity of ephedrine-D 00:00: [facility] (BROMFED 00 Medical DM) 2-30-10 Branch mg/5 mL syrup bromphenira 2015-07 Yes [place] mine-pseudo 1-22 ity of ephedrine-D 00:00: [facility] (BROMFED 00 Medical DM) 2-30-10 Branch mg/5 mL syrup bromphenira 2016 Yes [place] mine-pseudo 1-22 ity of ephedrine-D 00:00: [facility] (BROMFED 00 Medical DM) 2-30-10 Branch mg/5 mL syrup bromphenira 2015-07 Yes [place] mine-pseudo 1-22 ity of ephedrine-D 00:00: [facility] (BROMFED 00 Medical DM) 2-30-10 Branch mg/5 mL syrup bromphenira 2015-07 Yes [place] mine-pseudo 1-22 ity of ephedrine-D 00:00: [facility] (BROMFED 00 Medical DM) 2-30-10 Branch mg/5 mL syrup bromphenira 2015-07 Yes [place] mine-pseudo 1-22 ity of ephedrine-D 00:00: [facility] (BROMFED 00 Medical DM) 2-30-10 Branch mg/5 mL syrup bromphenira 2016- Yes Ruiz s mine-pseudo 1-22 ity of ephedrine-D 00:00: [facility] (BROMFED 00 Medical DM) 2-30-10 Branch mg/5 mL syrup bromphenira 2016- Yes [place] mine-pseudo 1-22 ity of ephedrine-D 00:00: [facility] (BROMFED 00 Medical DM) 2-30-10 Branch mg/5 mL syrup bromphenira 2016- Yes [place] mine-pseudo 1-22 ity of ephedrine-D 00:00: [facility] (BROMFED 00 Medical DM) 2-30-10 Branch mg/5 mL syrup bromphenira 2016- Yes [place] k[place] mine-pseudo 1-22 ity of ephedrine-D 00:00: [facility] (BROMFED 00 Medical DM) 2-30-10 Branch mg/5 mL syrup bromphenira 2016- Yes [place] mine-pseudo 1-22 ity of ephedrine-D 00:00: [facility] (BROMFED 00 Medical DM) 2-30-10 Branch mg/5 mL syrup bromphenira 2016- Yes [place] mine-pseudo 1-22 ity of ephedrine-D 00:00: [facility] (BROMFED 00 Medical DM) 2-30-10 Branch mg/5 mL syrup bromphenira 2016- Yes [place] mine-pseudo 1-22 ity of ephedrine-D 00:00: [facility] (BROMFED 00 Medical DM) 2-30-10 Branch mg/5 mL syrup bromphenira 2016- Yes [place] mine-pseudo 1-22 ity of ephedrine-D 00:00: [facility] (BROMFED 00 Medical DM) 2-30-10 Branch mg/5 mL syrup bromphenira 2015- Yes [place] mine-pseudo 1-22 ity of ephedrine-D 00:00: [facility] (BROMFED 00 Medical DM) 2-30-10 Branch mg/5 mL syrup bromphenira 2015-2022- No Migdalia osman mine-pseudo 1-22 06-06 ity of ephedrine-D 00:00: 00:00 [place] [facility] (BROMFED 00 :00 Medical DM) 2-30-10 Branch mg/5 mL syrup atorvastati 2016- Yes Un[facility] n (LIPITOR) [...] daily [place] tablet 00 meals. [facility] Branch hydralAZINE 2014-07 Yes 3 (three) [...] daily [place] tablet 00 meals. [facility] Branch hydralAZINE 2014-07 Yes 3 (three) [...] [place] tablet 00 Medical Branch hydrochloro 2014-07 2023- No Unive rs thiazide 0-10 06-06 ity [...] 75 mcg 00 every Medical tablet morning. [place] levothyroxi 2014-07 Yes 75ug Take 1 Univ ers ne 0-06 tablet by ity of (SYNTHROID) 00:00: mouth [place] 75 mcg 00 every Medical tablet morning. [place] levothyroxi 2014-07 Yes 75ug Take 1 Univ ers ne 0-06 tablet by ity of (SYNTHROID) 00:00: mouth [place] 75 mcg 00 every Medical tablet morning. [place] levothyroxi 2014-07 Yes 75ug Take 1 Univ ers ne 0-06 tablet by ity of (SYNTHROID) 00:00: mouth [place] 75 mcg 00 every Medical tablet morning. [place] FLUoxetine Yes Univers (PROZAC) 40 8-27 ity of mg capsule 00:00: [place] [facility] FLUoxetine Yes Univers (PROZAC) 40 8-27 ity of mg capsule 00:00: [facility] FLUoxetine Yes Univers (PROZAC) 40 8-27 ity of mg capsule 00:00: [place] [facility] FLUoxetine Yes Univers (PROZAC) 40 8-27 ity of mg capsule 00:00: [facility] FLUoxetine Yes Univers (PROZAC) 40 8-27 ity of mg capsule 00:00: [place] [facility] FLUoxetine Yes Univers (PROZAC) 40 8-27 ity of mg capsule 00:00: [facility] FLUoxetine Yes Univers (PROZAC) 40 8-27 ity of mg capsule 00:00: [place] [facility] FLUoxetine Yes Univers (PROZAC) 40 8-27 ity of mg capsule 00:00: [place] [facility] FLUoxetine Yes Univers (PROZAC) 40 8-27 ity of mg capsule 00:00: [place] [facility] FLUoxetine Yes Univers (PROZAC) 40 8-27 ity of mg capsule 00:00: [facility] FLUoxetine Yes Univers (PROZAC) 40 8-27 ity of mg capsule 00:00: [facility] FLUoxetine Yes Univers (PROZAC) 40 8-27 ity of mg capsule 00:00: [place] [facility] FLUoxetine 2015-0 Yes Univers (PROZAC) 40 8-27 ity of mg capsule 00:00: Medical Branch FLUoxetine 2014-0 Yes Univers (PROZAC) 40 8-27 ity of mg capsule 00:00: [place] [facility] FLUoxetine 2014-0 Yes Univers (PROZAC) 40 8-27 ity of mg capsule 00:00: [place] [facility] FLUoxetine 2014-0 Yes Univers (PROZAC) 40 8-27 ity of mg capsule 00:00: [place] [facility] FLUoxetine 2014-0 Yes Univers (PROZAC) 40 8-27 ity of mg capsule 00:00: [place] [facility] FLUoxetine 2014-0 Yes Univers (PROZAC) 40 8-27 ity of mg capsule 00:00: [place] [facility] FLUoxetine 2014-0 Yes 40mg Take [...] the Medical morning. Branch FLUoxetine 0 Yes Univers (PROZAC) 40 8-27 ity of mg capsule 00:00: [place] 00 Medical Branch FLUoxetine 2014-0 Yes Univers (PROZAC) 40 8-27 ity of mg capsule 00:00: [place] 00 Medical Branch FLUoxetine 2014-0 Yes Univers (PROZAC) 40 8-27 ity of mg capsule 00:00: [place] 00 Medical Branch FLUoxetine 2014-0 Yes Univers (PROZAC) 40 8-27 ity of mg capsule 00:00: [place] 00 Medical Branch FLUoxetine 2014-0 Yes Univers (PROZAC) 40 8-27 ity of mg capsule 00:00: [place] 00 Medical Branch FLUoxetine 2014-0 Yes 40mg Take 1 Unive rs (PROZAC) 40 8-27 capsule by it y of mg capsule 00:00: mouth [place] 00 the Medical morning. Branch FLUoxetine Yes 40mg Take 1 Unive rs [...] 2015-0 Yes 40mg Take 1 Unive rs (PROZA) 40 8-27 capsule by it y of mg capsule 00:00: mouth [place] 00 the Medical morning. Branch Immunizations Ordered Filled Date Status Comments Source Immunization Name Immunization Name SARS-COV-2 COVID-19 2022-03-25 Completed Unive rsity of VACCINE, BIVALENT 00:00:00 [facility] edical (MODERNA BOOSTER) Branch SARS-COV-2 COVID-19 2022-03-25 Completed Unive rsity of VACCINE, BIVALENT 00:00:00 [facility] edical (MODERNA BOOSTER) Branch SARS-COV-2 COVID-19 2022-03-25 Completed Unive rsity of VACCINE, BIVALENT 00:00:00 [facility] edical (MODERNA BOOSTER) Branch SARS-COV-2 COVID-19 2022-03-25 Completed Unive rsity of VACCINE, BIVALENT 00:00:00 [place] [facility] edical (MODERNA BOOSTER) Branch SARS-COV-2 COVID-19 2022-03-25 Completed Unive rsity of VACCINE, BIVALENT 00:00:00 [facility] edical (MODERNA BOOSTER) Branch SARS-COV-2 COVID-19 2022-03-25 Completed Unive rsity of VACCINE, BIVALENT 00:00:00 [facility] edical (MODERNA BOOSTER) Branch SARS-COV-2 COVID-19 2022-03-25 Completed Unive rsity of VACCINE, BIVALENT 00:00:00 [place] [facility] edical (MODERNA BOOSTER) Branch SARS-COV-2 COVID-19 2022-03-25 Completed Unive rsity of VACCINE, BIVALENT 00:00:00 [place] [facility] edical (MODERNA BOOSTER) Branch SARS-COV-2 COVID-19 2022-03-25 Completed Unive rsity of VACCINE, BIVALENT 00:00:00 [place] [facility] edical (MODERNA BOOSTER) Branch SARS-COV-2 COVID-19 [...] rsity of VACCINE, BIVALENT 00:00:00 [facility] edical (MODERNA BOOSTER) Branch SARS-COV-2 COVID-19 2022-03-25 Completed Unive rsity of VACCINE, BIVALENT 00:00:00 [facility] edical (MODERNA BOOSTER) Branch SARS-COV-2 COVID-19 2022-03-25 Completed Unive rsity of VACCINE, BIVALENT 00:00:00 [facility] edical (MODERNA BOOSTER) Branch SARS-COV-2 COVID-19 2022-03-25 Completed Unive rsity of VACCINE, BIVALENT 00:00:00 [facility] edical (MODERNA BOOSTER) Branch SARS-COV-2 COVID-19 2022-03-25 Completed Unive rsity of VACCINE, BIVALENT 00:00:00 [facility] edical (MODERNA BOOSTER) Branch SARS-COV-2 COVID-19 2022-03-25 Completed Unive rsity of VACCINE, BIVALENT 00:00:00 [facility] edical (MODERNA BOOSTER) Branch SARS-COV-2 COVID-19 2022-03-25 Completed Unive rsity of VACCINE, BIVALENT 00:00:00 [facility] edical (MODERNA BOOSTER) Branch SARS-COV-2 COVID-19 2022-03-25 Completed Unive rsity of VACCINE, BIVALENT 00:00:00 [facility] edical (MODERNA BOOSTER) Branch SARS-COV-2 COVID-19 2022-03-25 Completed Unive rsity of VACCINE, BIVALENT 00:00:00 [facility] edical (MODERNA BOOSTER) Branch SARS-COV-2 COVID-19 2022-03-25 Completed Unive rsity of VACCINE, BIVALENT 00:00:00 [facility] edical (MODERNA BOOSTER) Branch SARS-COV-2 COVID-19 2022-03-25 Completed Unive rsity of VACCINE, BIVALENT 00:00:00 [facility] edical (MODERNA BOOSTER) Branch SARS-COV-2 COVID-19 2021-05-18 Completed Unive rsity of VACCINE - (MODERNA) 00:00:00 [facility] Branch SARS-COV-2 COVID-19 2021-05-18 Completed Unive rsity of VACCINE - (MODERNA) 00:00:00 [facility] Branch SARS-COV-2 COVID-19 2021-05-18 Completed Unive rsity of VACCINE - (MODERNA) 00:00:00 [facility] SARS-COV-2 COVID-19 2021-05-18 Completed Unive rsity of VACCINE - (MODERNA) 00:00:00 [facility] Branch SARS-COV-2 COVID-19 2021-05-18 Completed Unive rsity of VACCINE - (MODERNA) 00:00:00 [facility] Branch SARS-COV-2 COVID-19 2021-05-18 Completed Unive rsity of VACCINE - (MODERNA) 00:00:00 [facility] Branch SARS-COV-2 COVID-19 2021-05-18 Completed Unive rsity of VACCINE - (MODERNA) 00:00:00 [facility] SARS-COV-2 COVID-19 2021-05-18 Completed Unive rsity of VACCINE - (MODERNA) 00:00:00 [facility] SARS-COV-2 COVID-19 2021-05-18 Completed Unive rsity of VACCINE - (MODERNA) 00:00:00 [facility] SARS-COV-2 COVID-19 2021-05-18 Completed Unive rsity of VACCINE - (MODERNA) 00:00:00 [facility] [facility] SARS-COV-2 COVID-19 2021-05-18 Completed [facility] VACCINE - (MODERNA) 00:00:00 [facility] SARS-COV-2 COVID-19 2021-05-18 Completed [facility] VACCINE - (MODERNA) 00:00:00 [facility] SARS-COV-2 COVID-19 2021-05-18 Completed [facility] VACCINE - (MODERNA) 00:00:00 [facility] SARS-COV-2 COVID-19 2021-05-18 Completed [facility] VACCINE - (MODERNA) 00:00:00 [facility] SARS-COV-2 COVID-19 2021-05-18 Completed [facility] VACCINE - (MODERNA) 00:00:00 [facility] SARS-COV-2 COVID-19 2021-05-18 Completed [facility] VACCINE - (MODERNA) 00:00:00 [facility] SARS-COV-2 COVID-19 2021-05-18 Completed [facility] VACCINE - (MODERNA) 00:00:00 [facility] SARS-COV-2 COVID-19 2021-05-18 Completed [facility] VACCINE - (MODERNA) 00:00:00 [facility] SARS-COV-2 COVID-19 2021-05-18 Completed [facility] VACCINE - (MODERNA) 00:00:00 [facility] SARS-COV-2 COVID-19 2021-05-18 Completed [facility] VACCINE - (MODERNA) 00:00:00 [facility] SARS-COV-2 COVID-19 2021-05-18 Completed [facility] VACCINE - (MODERNA) 00:00:00 [facility] SARS-COV-2 COVID-19 2021-05-18 Completed [facility] VACCINE - (MODERNA) 00:00:00 [facility] SARS-COV-2 COVID-19 2021-05-18 Completed [facility] VACCINE - (MODERNA) 00:00:00 [facility] SARS-COV-2 COVID-19 2021-05-18 Completed [facility] VACCINE - (MODERNA) 00:00:00 [facility] SARS-COV-2 COVID-19 2021-05-18 Completed [facility] VACCINE - (MODERNA) 00:00:00 [facility] SARS-COV-2 COVID-19 2021-05-18 Completed [facility] VACCINE - (MODERNA) 00:00:00 [facility] SARS-COV-2 COVID-19 2021-05-18 Completed [facility] VACCINE - (MODERNA) 00:00:00 [facility] SARS-COV-2 COVID-19 2021-05-18 Completed [facility] VACCINE - (MODERNA) 00:00:00 [facility] SARS-COV-2 COVID-19 2021-05-18 Completed [facility] VACCINE - (MODERNA) 00:00:00 [facility] SARS-COV-2 COVID-19 2021-05-18 Completed [facility] VACCINE - (MODERNA) 00:00:00 [facility] SARS-COV-2 COVID-19 2021-05-18 Completed [facility] VACCINE - (MODERNA) 00:00:00 [facility] SARS-COV-2 COVID-19 2021-05-18 Completed [facility] VACCINE - (MODERNA) 00:00:00 [facility] SARS-COV-2 COVID-19 2021-05-18 Completed [facility] VACCINE - (MODERNA) 00:00:00 [facility] SARS-COV-2 COVID-19 2021-05-18 Completed [facility] VACCINE - (MODERNA) 00:00:00 [facility] SARS-COV-2 COVID-19 2021-05-18 Completed [facility] VACCINE - (MODERNA) 00:00:00 [facility] Influenza High Dose 2021-04-22 Completed [facility] 00:00:00 [facility] Influenza High Dose 2021-04-22 Completed [facility] [place] 00:00:00 [facility] Influenza High Dose 2021-04-22 Completed [facility] 00:00:00 [facility] Influenza High Dose 2021-04-22 Completed [facility] [place] 00:00:00 [facility] Influenza High Dose 2021-04-22 Completed [facility] 00:00:00 [facility] Influenza High Dose 2021-04-22 Completed [facility] [place] 00:00:00 [facility] Influenza High Dose 2021-04-22 Completed [facility] 00:00:00 [facility] Influenza High Dose 2021-04-22 Completed [facility] [place] 00:00:00 [facility] Influenza High Dose 2021-04-22 Completed Unive [...] 2021-04-22 Completed [facility] [place] 00:00:00 [facility] Influenza High Dose 2021-04-22 Completed [...] 2021-04-22 Completed [facility] [place] 00:00:00 [facility] Influenza High Dose 2021-04-22 Completed [...] 2021-04-22 Completed [facility] [place] 00:00:00 [facility] Influenza High Dose 2021-04-22 Completed [facility] 00:00:00 [facility] Influenza High Dose 2021-04-22 Completed [facility] 00:00:00 [facility] Influenza High Dose 2021-04-22 Completed [facility] [place] 00:00:00 [facility] Influenza High Dose 2021-04-22 Completed [facility] [place] 00:00:00 [facility] Influenza High Dose 2021-04-22 Completed [facility] 00:00:00 [facility] Influenza High Dose 2021-04-22 Completed [facility] [place] 00:00:00 [facility] Influenza High Dose 2021-04-22 Completed [facility] 00:00:00 [facility] Influenza High Dose 2021-04-22 Completed [facility] [place] 00:00:00 [facility] Influenza High Dose 2021-04-22 Completed [...] Dose 2021-04-22 Completed [facility] 00:00:00 [facility] Influenza High Dose 2021-04-22 Completed [facility] [place] 00:00:00 [facility] Influenza High Dose 2021-04-22 Completed [facility] 00:00:00 [facility] Influenza High Dose 2021-04-22 Completed [facility] [place] 00:00:00 [facility] Influenza High Dose 2021-04-22 Completed [facility] 00:00:00 [facility] Influenza High Dose 2021-04-22 Completed [facility] [place] 00:00:00 [facility] Influenza High Dose 2021-04-22 Completed [facility] 00:00:00 [facility] Influenza High Dose 2021-04-22 Completed [facility] 00:00:00 [facility] Influenza High Dose 2021-04-22 Completed [facility] [place] 00:00:00 [facility] Influenza High Dose 2021-04-22 Completed [facility] [place] 00:00:00 [facility] Influenza High Dose 2021-04-22 Completed [facility] 00:00:00 [facility] Influenza High Dose 2021-04-22 Completed [facility] [place] 00:00:00 [facility] SARS-COV-2 COVID-19 2020-09-02 Completed [facility] VACCINE - (MODERNA) 00:00:00 [facility] SARS-COV-2 COVID-19 2020-09-02 Completed [facility] VACCINE - (MODERNA) 00:00:00 [facility] SARS-COV-2 COVID-19 2020-09-02 Completed [facility] VACCINE - (MODERNA) 00:00:00 [facility] SARS-COV-2 COVID-19 2020-09-02 Completed [facility] VACCINE - (MODERNA) 00:00:00 [facility] SARS-COV-2 COVID-19 2020-09-02 Completed [facility] VACCINE - (MODERNA) 00:00:00 [facility] SARS-COV-2 COVID-19 2020-09-02 Completed [facility] VACCINE - (MODERNA) 00:00:00 [facility] SARS-COV-2 COVID-19 2020-09-02 Completed [facility] VACCINE - (MODERNA) 00:00:00 [facility] SARS-COV-2 COVID-19 2020-09-02 Completed [facility] VACCINE - (MODERNA) 00:00:00 [facility] SARS-COV-2 COVID-19 2020-09-02 Completed [facility] VACCINE - (MODERNA) 00:00:00 [facility] SARS-COV-2 COVID-19 2020-09-02 Completed [facility] VACCINE - (MODERNA) 00:00:00 [facility] SARS-COV-2 COVID-19 2020-09-02 Completed [facility] VACCINE - (MODERNA) 00:00:00 [facility] SARS-COV-2 COVID-19 2020-09-02 Completed [facility] VACCINE - (MODERNA) 00:00:00 [facility] SARS-COV-2 COVID-19 2020-09-02 Completed [facility] VACCINE - (MODERNA) 00:00:00 [facility] SARS-COV-2 COVID-19 2020-09-02 Completed [facility] VACCINE - (MODERNA) 00:00:00 [facility] SARS-COV-2 COVID-19 2020-09-02 Completed [facility] VACCINE - (MODERNA) 00:00:00 [facility] SARS-COV-2 COVID-19 2020-09-02 Completed [facility] VACCINE - (MODERNA) 00:00:00 [facility] SARS-COV-2 COVID-19 2020-09-02 Completed [facility] VACCINE - (MODERNA) 00:00:00 [facility] SARS-COV-2 COVID-19 2020-09-02 Completed [facility] VACCINE - (MODERNA) 00:00:00 [facility] SARS-COV-2 COVID-19 2020-09-02 Completed [facility] VACCINE - (MODERNA) 00:00:00 [facility] SARS-COV-2 COVID-19 2020-09-02 Completed [facility] VACCINE - (MODERNA) 00:00:00 [facility] SARS-COV-2 COVID-19 2020-09-02 Completed [facility] VACCINE - (MODERNA) 00:00:00 [facility] SARS-COV-2 COVID-19 2020-09-02 Completed [facility] VACCINE - (MODERNA) 00:00:00 [facility] SARS-COV-2 COVID-19 2020-09-02 Completed [facility] VACCINE - (MODERNA) 00:00:00 [facility] SARS-COV-2 COVID-19 2020-09-02 Completed [facility] VACCINE - (MODERNA) 00:00:00 [facility] SARS-COV-2 COVID-19 2020-09-02 Completed [facility] VACCINE - (MODERNA) 00:00:00 [facility] SARS-COV-2 COVID-19 2020-09-02 Completed [facility] VACCINE - (MODERNA) 00:00:00 [facility] SARS-COV-2 COVID-19 2020-09-02 Completed [facility] VACCINE - (MODERNA) 00:00:00 [facility] SARS-COV-2 COVID-19 2020-09-02 Completed [facility] VACCINE - (MODERNA) 00:00:00 [facility] SARS-COV-2 COVID-19 2020-09-02 Completed [facility] VACCINE - (MODERNA) 00:00:00 [facility] SARS-COV-2 COVID-19 2020-09-02 Completed [facility] VACCINE - (MODERNA) 00:00:00 [facility] SARS-COV-2 COVID-19 2020-09-02 Completed [facility] VACCINE - (MODERNA) 00:00:00 [facility] SARS-COV-2 COVID-19 2020-09-02 Completed [facility] VACCINE - (MODERNA) 00:00:00 [facility] SARS-COV-2 COVID-19 2020-09-02 Completed [facility] VACCINE - (MODERNA) 00:00:00 [facility] SARS-COV-2 COVID-19 2020-09-02 Completed [facility] VACCINE - (MODERNA) 00:00:00 [facility] SARS-COV-2 COVID-19 2020-09-02 Completed [facility] VACCINE - (MODERNA) 00:00:00 [facility] SARS-COV-2 COVID-19 2020-08-05 Completed [facility] VACCINE - (MODERNA) 00:00:00 [facility] SARS-COV-2 COVID-19 2020-08-05 Completed [facility] VACCINE - (MODERNA) 00:00:00 [facility] SARS-COV-2 COVID-19 2020-08-05 Completed [facility] VACCINE - (MODERNA) 00:00:00 [facility] SARS-COV-2 COVID-19 2020-08-05 Completed [facility] VACCINE - (MODERNA) 00:00:00 [facility] SARS-COV-2 COVID-19 2020-08-05 Completed [facility] VACCINE - (MODERNA) 00:00:00 [facility] SARS-COV-2 COVID-19 2020-08-05 Completed [facility] VACCINE - (MODERNA) 00:00:00 [facility] SARS-COV-2 COVID-19 2020-08-05 Completed [facility] VACCINE - (MODERNA) 00:00:00 [facility] SARS-COV-2 COVID-19 2020-08-05 Completed [facility] VACCINE - (MODERNA) 00:00:00 [facility] SARS-COV-2 COVID-19 2020-08-05 Completed [facility] VACCINE - (MODERNA) 00:00:00 [facility] SARS-COV-2 COVID-19 2020-08-05 Completed [facility] VACCINE - (MODERNA) 00:00:00 [facility] SARS-COV-2 COVID-19 2020-08-05 Completed [facility] VACCINE - (MODERNA) 00:00:00 [facility] SARS-COV-2 COVID-19 2020-08-05 Completed [facility] VACCINE - (MODERNA) 00:00:00 [facility] SARS-COV-2 COVID-19 2020-08-05 Completed [facility] VACCINE - (MODERNA) 00:00:00 [facility] SARS-COV-2 COVID-19 2020-08-05 Completed [facility] VACCINE - (MODERNA) 00:00:00 [facility] SARS-COV-2 COVID-19 2020-08-05 Completed [facility] VACCINE - (MODERNA) 00:00:00 [facility] SARS-COV-2 COVID-19 2020-08-05 Completed [facility] VACCINE - (MODERNA) 00:00:00 [facility] SARS-COV-2 COVID-19 2020-08-05 Completed [facility] VACCINE - (MODERNA) 00:00:00 [facility] SARS-COV-2 COVID-19 2020-08-05 Completed [facility] VACCINE - (MODERNA) 00:00:00 [facility] SARS-COV-2 COVID-19 2020-08-05 Completed [facility] VACCINE - (MODERNA) 00:00:00 [facility] SARS-COV-2 COVID-19 2020-08-05 Completed [facility] VACCINE - (MODERNA) 00:00:00 [facility] SARS-COV-2 COVID-19 2020-08-05 Completed [facility] VACCINE - (MODERNA) 00:00:00 [facility] SARS-COV-2 COVID-19 2020-08-05 Completed [facility] VACCINE - (MODERNA) 00:00:00 [facility] SARS-COV-2 COVID-19 2020-08-05 Completed [facility] VACCINE - (MODERNA) 00:00:00 [facility] SARS-COV-2 COVID-19 2020-08-05 Completed [facility] VACCINE - (MODERNA) 00:00:00 [facility] SARS-COV-2 COVID-19 2020-08-05 Completed [facility] of VACCINE - (MODERNA) 00:00:00 [facility] SARS-COV-2 COVID-19 2020-08-05 Completed [facility] VACCINE - (MODERNA) 00:00:00 [facility] SARS-COV-2 COVID-19 2020-08-05 Completed [facility] VACCINE - (MODERNA) 00:00:00 [facility] SARS-COV-2 COVID-19 2020-08-05 Completed [facility] VACCINE - (MODERNA) 00:00:00 [facility] SARS-COV-2 COVID-19 2020-08-05 Completed [facility] VACCINE - (MODERNA) 00:00:00 [facility] SARS-COV-2 COVID-19 2020-08-05 Completed [facility] VACCINE - (MODERNA) 00:00:00 [facility] SARS-COV-2 COVID-19 2020-08-05 Completed [facility] of VACCINE - (MODERNA) 00:00:00 [facility] SARS-COV-2 COVID-19 2020-08-05 Completed [facility] of VACCINE - (MODERNA) 00:00:00 [facility] SARS-COV-2 COVID-19 2020-08-05 Completed [facility] of VACCINE - (MODERNA) 00:00:00 [facility] SARS-COV-2 COVID-19 2020-08-05 Completed [facility] of VACCINE - (MODERNA) 00:00:00 [facility] SARS-COV-2 COVID-19 2020-08-05 Completed [facility] VACCINE - (MODERNA) 00:00:00 [facility] Influenza High Dose 2020-03-03 Completed [facility] of 00:00:00 [facility] Influenza High Dose 2020-03-03 Completed [facility] 00:00:00 [facility] Influenza High Dose 2020-03-03 Completed [facility] 00:00:00 [facility] Influenza High Dose 2020-03-03 Completed [facility] of 00:00:00 [facility] Influenza High Dose 2020-03-03 Completed [facility] of 00:00:00 [facility] Influenza High Dose 2020-03-03 Completed [facility] of 00:00:00 [facility] Influenza High Dose 2020-03-03 Completed [facility] of 00:00:00 [facility] Influenza High Dose 2020-03-03 Completed [facility] of 00:00:00 [facility] Influenza High Dose 2020-03-03 Completed [facility] of 00:00:00 [facility] Influenza High Dose 2020-03-03 Completed [facility] 00:00:00 [facility] Influenza High Dose 2020-03-03 Completed [facility] of 00:00:00 [facility] Influenza High Dose 2020-03-03 Completed [facility] 00:00:00 [facility] Influenza High Dose 2020-03-03 Completed [facility] 00:00:00 [facility] Influenza High Dose 2020-03-03 Completed [facility] 00:00:00 [facility] Influenza High Dose 2020-03-03 Completed [facility] 00:00:00 [facility] Influenza High Dose 2020-03-03 Completed [facility] 00:00:00 [facility] Influenza High Dose 2020-03-03 Completed [facility] of 00:00:00 [facility] Influenza High Dose 2020-03-03 Completed [facility] 00:00:00 [facility] Influenza High Dose 2020-03-03 Completed [facility] of 00:00:00 [facility] Influenza High Dose 2020-03-03 Completed [facility] 00:00:00 [facility] Influenza High Dose 2020-03-03 Completed [facility] 00:00:00 [facility] Influenza High Dose 2020-03-03 Completed [facility] of 00:00:00 [facility] Influenza High Dose 2020-03-03 Completed [facility] 00:00:00 [facility] Influenza High Dose 2020-03-03 Completed [facility] 00:00:00 [facility] Influenza High Dose 2020-03-03 Completed [facility] 00:00:00 [facility] Influenza High Dose 2020-03-03 Completed [facility] 00:00:00 [facility] Influenza High Dose 2020-03-03 Completed [facility] 00:00:00 [facility] Influenza High Dose 2020-03-03 Completed [facility] 00:00:00 [facility] Influenza High Dose 2020-03-03 Completed [facility] of 00:00:00 [facility] Influenza High Dose 2020-03-03 Completed [facility] 00:00:00 [facility] Influenza High Dose 2020-03-03 Completed [facility] 00:00:00 [facility] Influenza High Dose 2020-03-03 Completed [facility] 00:00:00 [facility] Influenza High Dose 2020-03-03 Completed [facility] 00:00:00 [facility] Influenza High Dose 2020-03-03 Completed [facility] 00:00:00 [facility] Influenza High Dose 2020-03-03 Completed [facility] 00:00:00 [facility] TDAP 2019-04-04 Completed [facility] 00:00:00 [facility] Flu Trivalent 2019-04-04 Completed [facility] 00:00:00 [facility] Influenza High Dose 2019-04-04 Completed [facility] 00:00:00 [facility] TDAP 2019-04-04 Completed [facility] 00:00:00 [facility] Flu Trivalent 2019-04-04 Completed [facility] 00:00:00 [facility] Influenza High Dose 2019-04-04 Completed [facility] 00:00:00 [facility] TDAP 2019-04-04 Completed [facility] 00:00:00 [facility] Flu Trivalent 2019-04-04 Completed [facility] 00:00:00 [facility] Influenza High Dose 2019-04-04 Completed [facility] 00:00:00 [facility] TDAP 2019-04-04 Completed [facility] 00:00:00 [facility] Flu Trivalent 2019-04-04 Completed [facility] 00:00:00 [facility] Influenza High Dose 2019-04-04 Completed [facility] 00:00:00 [facility] Flu Trivalent 2019-04-04 Completed [facility] 00:00:00 [facility] Influenza High Dose 2019-04-04 Completed [facility] of 00:00:00 [facility] TDAP 2019-04-04 Completed [facility] 00:00:00 [facility] Flu Trivalent 2019-04-04 Completed [facility] 00:00:00 [facility] Influenza High Dose 2019-04-04 Completed [facility] 00:00:00 [facility] TDAP 2019-04-04 Completed [facility] 00:00:00 [facility] Flu Trivalent 2019-04-04 Completed [facility] 00:00:00 [facility] Influenza High Dose 2019-04-04 Completed [facility] 00:00:00 [facility] TDAP 2019-04-04 Completed [facility] 00:00:00 [facility] Flu Trivalent 2019-04-04 Completed [facility] 00:00:00 [facility] Influenza High Dose 2019-04-04 Completed [facility] 00:00:00 [facility] TDAP 2019-04-04 Completed [facility] 00:00:00 [facility] Flu Trivalent 2019-04-04 Completed [facility] 00:00:00 [facility] Influenza High Dose 2019-04-04 Completed [facility] 00:00:00 [facility] TDAP 2019-04-04 Completed [facility] 00:00:00 [facility] Flu Trivalent 2019-04-04 Completed [facility] 00:00:00 [facility] Influenza High Dose 2019-04-04 Completed [facility] 00:00:00 [facility] TDAP 2019-04-04 Completed [facility] 00:00:00 [facility] Flu Trivalent 2019-04-04 Completed [facility] 00:00:00 [facility] Influenza High Dose 2019-04-04 Completed [facility] 00:00:00 [facility] TDAP 2019-04-04 Completed [facility] 00:00:00 [facility] Flu Trivalent 2019-04-04 Completed [facility] 00:00:00 [facility] Influenza High Dose 2019-04-04 Completed [facility] 00:00:00 [facility] TDAP 2019-04-04 Completed [facility] 00:00:00 [facility] Flu Trivalent 2019-04-04 Completed [facility] 00:00:00 [facility] Influenza High Dose 2019-04-04 Completed [facility] 00:00:00 [facility] TDAP 2019-04-04 Completed [facility] 00:00:00 [facility] Flu Trivalent 2019-04-04 Completed [facility] 00:00:00 [facility] Influenza High Dose 2019-04-04 Completed [facility] 00:00:00 [facility] TDAP 2019-04-04 Completed [facility] 00:00:00 [facility] Flu Trivalent 2019-04-04 Completed [facility] 00:00:00 [facility] Influenza High Dose 2019-04-04 Completed [facility] 00[facility]00:00 [facility] [facility] TDAP 2019-04-04 Completed University of 00:00:00 [facility] Flu Trivalent 2019-04-04 Completed University of 00:00:00 [facility] Influenza High Dose 2019-04-04 Completed Unive rsity of 00:00:00 [facility] TDAP 2019-04-04 Completed University of 00:00:00 [facility] Flu Trivalent 2019-04-04 Completed University of 00:00:00 [facility] Influenza High Dose 2019-04-04 Completed Unive rsity of 00:00:00 [facility] TDAP 2019-04-04 Completed University of 00:00:00 [facility] Flu Trivalent 2019-04-04 Completed University of 00:00:00 [facility] Influenza High Dose 2019-04-04 Completed Unive rsity of 00:00:00 [facility] TDAP 2019-04-04 Completed University of 00:00:00 [facility] Flu Trivalent 2019-04-04 Completed University of 00:00:00 [facility] Influenza High Dose 2019-04-04 Completed Unive rsity of 00:00:00 [facility] TDAP 2019-04-04 Completed University of 00:00:00 [facility] Flu Trivalent 2019-04-04 Completed University of 00:00:00 [facility] Influenza High Dose 2019-04-04 Completed Unive rsity of 00:00:00 [facility] TDAP 2019-04-04 Completed University of 00:00:00 [facility] TDAP 2019-04-04 Completed University of 00:00:00 [facility] Flu Trivalent 2019-04-04 Completed University of 00:00:00 [facility] Influenza High Dose 2019-04-04 Completed Unive rsity of 00:00:00 [facility] Flu Trivalent 2019-04-04 Completed University of 00:00:00 [facility] TDAP 2019-04-04 Completed University of 00:00:00 [facility] Flu Trivalent 2019-04-04 Completed University of 00:00:00 [facility] Influenza High Dose 2019-04-04 Completed Unive rsity of 00:00:00 [facility] Influenza High Dose 2019-04-04 Completed Unive rsity of 00:00:00 [facility] TDAP 2019-04-04 Completed University of 00:00:00 [facility] Flu Trivalent 2019-04-04 Completed University of 00:00:00 [facility] Influenza High Dose 2019-04-04 Completed Unive rsity of 00:00:00 [facility] TDAP 2019-04-04 Completed University of 00:00:00 [facility] Flu Trivalent 2019-04-04 Completed University of 00:00:00 [facility] Influenza High Dose 2019-04-04 Completed Unive rsity of 00:00:00 [facility] TDAP 2019-04-04 Completed University of 00:00:00 [facility] Flu Trivalent 2019-04-04 Completed University of 00:00:00 [facility] Influenza High Dose 2019-04-04 Completed Unive rsity of 00:00:00 [facility] TDAP 2019-04-04 Completed University of 00:00:00 [facility] Flu Trivalent 2019-04-04 Completed University of 00:00:00 [facility] Influenza High Dose 2019-04-04 Completed Unive rsity of 00:00:00 [facility] TDAP 2019-04-04 Completed University of 00:00:00 [facility] Flu Trivalent 2019-04-04 Completed University of 00:00:00 [facility] Influenza High Dose 2019-04-04 Completed Unive rsity of 00:00:00 [facility] TDAP 2019-04-04 Completed University of 00:00:00 [facility] Flu Trivalent 2019-04-04 Completed University of 00:00:00 [facility] Influenza High Dose 2019-04-04 Completed Unive rsity of 00:00:00 [facility] TDAP 2019-04-04 Completed University of 00:00:00 [facility] Flu Trivalent 2019-04-04 Completed University of 00:00:00 [facility] Influenza High Dose 2019-04-04 Completed Unive rsity of 00:00:00 [facility] TDAP 2019-04-04 Completed University of 00:00:00 [facility] TDAP 2019-04-04 Completed University of 00:00:00 [facility] Flu Trivalent 2019-04-04 Completed University of 00:00:00 [facility] Influenza High Dose 2019-04-04 Completed Unive rsity of 00:00:00 [facility] TDAP 2019-04-04 Completed University of 00:00:00 [facility] Flu Trivalent 2019-04-04 Completed University of 00:00:00 [facility] Flu Trivalent 2019-04-04 Completed University of 00:00:00 [facility] Influenza High Dose 2019-04-04 Completed Unive rsity of 00:00:00 [facility] Influenza High Dose 2019-04-04 Completed Unive rsity of 00:00:00 [facility] TDAP 2019-04-04 Completed University of 00:00:00 [facility] Flu Trivalent 2019-04-04 Completed University of 00:00:00 [facility] Influenza High Dose 2019-04-04 Completed Unive rsity of 00:00:00 [facility] TDAP 2019-04-04 Completed University of 00:00:00 [facility] Flu Trivalent 2019-04-04 Completed University of 00:00:00 [facility] Influenza High Dose 2019-04-04 Completed Unive rsity of 00:00:00 [facility] TDAP 2019-04-04 Completed University of 00:00:00 [facility] Influenza High Dose 2017-03-03 Completed Unive rsity of 00:00:00 [facility] Influenza High Dose 2017-03-03 Completed Unive rsity of 00:00:00 [facility] Influenza High Dose 2017-03-03 Completed Unive rsity of 00:00:00 [facility] Influenza High Dose 2017-03-03 Completed Unive rsity of 00:00:00 [facility] Influenza High Dose 2017-03-03 Completed Unive rsity of 00:00:00 [facility] Influenza High Dose 2017-03-03 Completed Unive rsity of 00:00:00 [facility] Influenza High Dose 2017-03-03 Completed Unive rsity of 00:00:00 [facility] Influenza High Dose 2017-03-03 Completed Unive rsity of 00:00:00 [facility] Influenza High Dose 2017-03-03 Completed Unive rsity of 00:00:00 [facility] Influenza High Dose 2017-03-03 Completed Unive rsity of 00:00:00 [facility] Influenza High Dose 2017-03-03 Completed Unive rsity of 00:00:00 [facility] Influenza High Dose 2017-03-03 Completed Unive rsity of 00:00:00 [facility] Influenza High Dose 2017-03-03 Completed Unive rsity of 00:00:00 [facility] Influenza High Dose 2017-03-03 Completed Unive rsity of 00:00:00 [facility] Influenza High Dose 2017-03-03 Completed Unive rsity of 00:00:00 [facility] Influenza High Dose 2017-03-03 Completed Unive rsity of 00:00:00 [facility] Influenza High Dose 2017-03-03 Completed Unive rsity of 00:00:00 [facility] Influenza High Dose 2017-03-03 Completed Unive rsity of 00:00:00 [facility] Influenza High Dose 2017-03-03 Completed Unive rsity of 00:00:00 [facility] Influenza High Dose 2017-03-03 Completed Unive rsity of 00:00:00 [facility] Influenza High Dose 2017-03-03 Completed Unive rsity of 00:00:00 [facility] Influenza High Dose 2017-03-03 Completed Unive rsity of 00:00:00 [facility] Influenza High Dose 2017-03-03 Completed Unive rsity of 00:00:00 [facility] Influenza High Dose 2017-03-03 Completed Unive rsity of 00:00:00 [facility] Influenza High Dose 2017-03-03 Completed Unive rsity of 00:00:00 [facility] Influenza High Dose 2017-03-03 Completed Unive rsity of 00:00:00 [facility] Influenza High Dose 2017-03-03 Completed Unive rsity of 00:00:00 [facility] Influenza High Dose 2017-03-03 Completed Unive rsity of 00:00:00 [facility] Influenza High Dose 2017-03-03 Completed Unive rsity of 00:00:00 [facility] Influenza High Dose 2017-03-03 Completed Unive rsity of 00:00:00 [facility] Influenza High Dose 2017-03-03 Completed Unive rsity of 00:00:00 [facility] Influenza High Dose 2017-03-03 Completed Unive rsity of 00:00:00 [facility] Influenza High Dose 2017-03-03 Completed Unive rsity of 00:00:00 [facility] Influenza High Dose 2017-03-03 Completed Unive rsity of 00:00:00 [facility] Influenza High Dose 2017-03-03 Completed Unive rsity of 00:00:00 [facility] Pneumococcal 2016-05-01 Completed University o f Polysaccharide, 00:00:00 [place] [facility] PPSV23 (PNEUMOVAX) Branch Pneumococcal 2016-05-01 [...] ical PPSV23 (PNEUMOVAX) Branch TDAP Unknown Completed [facility] SARS-COV-2 COVID-19 Unknown Completed Unive rsity of VACCINE - (MODERNA) [facility] SARS-COV-2 COVID-19 Unknown Completed Unive rsity of VACCINE - (MODERNA) [facility] SARS-COV-2 COVID-19 Unknown Completed Unive rsity of VACCINE - (MODERNA) [facility] SARS-COV-2 COVID-19 Unknown Completed Unive rsity of VACCINE, [facility]ALENT [place] [facility] (MODERNA BOOSTER) Branch Flu Trivalent Unknown Completed [facility] Influenza High Dose Unknown [facility] Influenza High Dose Unknown Com[facility] Influenza High Dose Unknown Completed Unive rsity of [facility] Influenza High Dose Unknown Completed Unive rsity of [facility] Influenza High Dose Unknown Completed Unive rsity of [facility] Pneumococcal Unknown Completed [place] Polysaccharide, [facility] ical PPSV23 (PNEUMOVAX) Branch Vital Signs Vital Name Observation Time Observation Value Comments Source Systolic blood 2023-01-27 16:23:00 129 mm[Hg] Univer sity of pressure [facility] Diastolic blood 2023-01-27 16:23:00 70 mm[Hg] Unive rsity of [facility] Heart rate 2023-01-27 16:23:00 77 /min Universi ty [facility] Body height 2023-01-27 16:23:00 149.9 cm Universi ty [facility] Body weight 2023-01-27 16:23:00 59.966 kg Universi ty [facility] BMI 2023-01-27 16:23:00 26.70 kg/m2 Universi ty [facility] Systolic blood 2023-01-05 14:25:00 116 mm[Hg] Univer sity of [facility] Diastolic blood 2023-01-05 14:25:00 69 mm[Hg] Unive rsity of [facility] Heart rate 2023-01-05 14:25:00 76 /min Universi ty of [facility] Body height 2023-01-05 14:25:00 149.9 cm Universi ty [facility] Systolic blood 2022-12-26 18:55:00 113 mm[Hg] Univer sity of pressure [facility] Diastolic blood 2022-12-26 18:55:00 63 mm[Hg] Unive rsity of pressure [facility] Heart rate 2022-12-26 18:55:00 74 /min Universi ty of [facility] Body height 2022-12-26 18:55:00 149.9 cm Universi ty of [facility] Body weight 2022-12-26 18:55:00 57.153 kg Universi ty [facility] BMI 2022-12-26 18:55:00 25.45 kg/m2 [facility] Systolic blood 2022-12-20 20:44:00 169 mm[Hg] Univer sity of pressure [facility] Diastolic blood 2022-12-20 20:44:00 64 mm[Hg] Unive rsity of pressure [facility] Heart rate 2022-12-20 20:44:00 68 /min [facility]i ty [facility] Body temperature 2022-12-20 20:44:00 35.94 Tiffanie Univ ersity of [place] [facility] Respiratory rate 2022-12-20 20:44:00 18 /min Univ ersity of [facility] Oxygen saturation in 2022-12-20 20:44:00 93 /min University of Arterial blood by [place] [employer] [facility] oxim[facility] Branch Body height 2022-12-19 20:00:00 149.9 cm [facility] Body weight 2022-12-19 20:00:00 61.462 kg [facility] BMI 2022-12-19 20:00:00 27.37 kg/m2 [facility] Systolic blood 2022-12-19 12:17:00 156 mm[Hg] Univer sity of pressure [facility] Diastolic blood 2022-12-19 12:17:00 71 mm[Hg] Unive rsity of pressure [facility] Heart rate 2022-12-19 12:17:00 60 /min Universi ty [facility] Body temperature 2022-12-19 12:17:00 36.33 Tiffanie Univ ersity of [place] [facility] Respiratory rate 2022-12-19 12:17:00 19 /min Univ ersity of [place] [facility] Oxygen saturation in 2022-12-19 12:17:00 96 /min University of Arterial blood by [place] [employer] Pulse [employer]xim[facility] Branch Body weight 2022-12-15 14:49:00 58.968 kg [facility] [place] [facility] BMI 2022-12-15 14:49:00 26.26 kg/m2 [facility] [place] [facility] Systolic blood 2022-12-01 15:18:00 153 mm[Hg] Univer sity of pressure [facility] Diastolic blood 2022-12-01 15:18:00 71 mm[Hg] Unive rsity of pressure [facility] Heart rate 2022-12-01 15:18:00 67 /min [facility] [place] [facility] Body height 2022-12-01 15:18:00 149.9 cm [facility] [place] [facility] Body weight 2022-12-01 15:18:00 59.24 kg [facility] [place] [facility] BMI 2022-12-01 15:18:00 26.38 kg/m2 [facility] [place] [facility] Systolic blood 2022-11-08 14:23:00 152 mm[Hg] Univer sity of pressure [facility] Diastolic blood 2022-11-08 14:23:00 76 mm[Hg] Unive rsity of pressure [facility] Heart rate 2022-11-08 14:23:00 71 /min Universi ty of [facility] Branch Oxygen saturation in 2022-11-08 14:23:00 94 /min University Arterial blood by [facility] Pulse oximetry Branch Respiratory rate 2022-11-08 14:18:00 19 /min Univ ersity of [place] [facility] Body height 2022-11-08 14:18:00 149.9 cm [facility] ty [facility] [place] [facility] Body weight 2022-11-08 14:18:00 58.877 kg [facility] [place] [facility] BMI 2022-11-08 14:18:00 26.22 kg/m2 [facility] [place] [facility] Body height 2022-11-02 18:12:00 149.9 cm [facility] [place] [facility] Body weight 2022-11-02 18:12:00 59.058 kg [facility] [place] [facility] BMI 2022-11-02 18:12:00 26.30 kg/m2 [facility] [place] [facility] Body height 2022-03-11 14:29:00 142.7 cm [facility] [place] [facility] Body weight 2022-03-11 14:29:00 56.246 kg [facility] [place] [facility] BMI 2022-03-11 14:29:00 27.60 kg/m2 [facility] [place] [facility] Systolic blood 2022-10-27 16:27:10 155 mm[Hg] Method [facility] pressure Diastolic blood 2022-10-27 16:27:10 70 mm[Hg] [facility] pressure Heart rate 2022-10-27 16:27:10 83 /min [facility] Body temperature 2022-10-27 16:27:10 37.56 Tiffanie [facility] Respiratory rate 2022-10-27 16:27:10 19 /min [facility] Oxygen saturation in 2022-10-27 16:27:10 95 /min [facility] Arterial blood by Pulse oximetry Body height 2022-10-25 16:18:00 149.9 cm [facility] Body weight 2022-10-25 16:18:00 55.339 kg [facility] BMI 2022-10-25 16:18:00 24.64 kg/m2 [facility] Procedures Procedure Date / Time Performing Clinician Source Performed REFERRAL- 2023-03-23 05:01:00 Doctor Unassigned, [facility] REQUEST/RESPONSE [facility] OP CORRESPONDENCE 2023-02-27 05:01:00 Doctor Unajayleneigned, [facility] REFERRAL- 2023-02-20 05:01:00 Doctor Unassigned, [facility] REQUEST/RESPONSE [facility] ASSIGNMENT OF BENEFITS 2023-01-05 14:18:04 Doctor Unassigned, [facility] PHOSPHORUS 2022-12-20 11:38:00 Hilario [facility] MAGNESIUM 2022-12-20 11:38:00 [facility] THYROID STIMULATING 2022-12-20 11:38:00 Hilario Vera [facility] HORMONE Medical Branch HEPATIC FUNCTION PANEL 2022-12-20 11:38:00 Hilario Vera [facility] ([id number]) (ALB,T.PRO,BILI Medical Branch T,BU/BC,ALT,AST,ALK PHOS) BASIC METABOLIC PANEL 2022-12-20 11:38:00 Hilario Vera [facility] (NA, K, CL, CO2, GLUCOSE, Medica l Branch BUN, CREATININE, CA) CBC WITH DIFF 2022-12-20 11:38:00 [facility] PHOSPHORUS 2022-12-20 11:38:00 Hilario [facility] MAGNESIUM 2022-12-20 11:38:00 [facility] THYROID STIMULATING 2022-12-20 11:38:00 Hilario Vera [facility] HORMONE [facility] Branch HEPATIC FUNCTION PANEL 2022-12-20 11:38:00 Hilario Vera [facility] ([id number]) (ALB,T.PRO,BILI Medical Branch T,BU/BC,ALT,AST,ALK PHOS) BASIC METABOLIC PANEL 2022-12-20 11:38:00 Hilario Vera [facility] (NA, K, CL, CO2, GLUCOSE, Medica l Branch BUN, CREATININE, CA) CBC WITH DIFF 2022-12-20 11:38:00 [facility] MRSA / MSSA SCREEN BY 2022-12-19 22:08:00 Elin Sims [facility] MRSA / MSSA SCREEN BY 2022-12-19 22:08:00 Elin Sims [facility] XR KNEE <3 VW LEFT 2022-12-19 18:53:03 Elin Sims [facility] XR KNEE <3 VW LEFT 2022-12-19 18:53:03 Elin Sims [facility] TOTAL KNEE ARTHROPLASTY 2022-12-19 14:55:00 Elin Sims Un [facility] TOTAL KNEE ARTHROPLASTY 2022-12-19 14:55:00 Elin Sims [facility] EXTERNAL PROVIDER RECORDS 2022-12-01 05:01:00 Doctor Milanaigned, [facility] Name [facility] DSU PRE-OP 2022-12-01 05:01:00 Doctor Unaaj, [facility] EXTERNAL PROVIDER RECORDS 2022-12-01 05:01:00 Doctor Unaaj, [facility] DSU PRE-OP 2022-12-01 05:01:00 Doctor Velasquez, [facility] NM MYOCARDIUM PERFUSION 2022-11-22 17:15:00 Ravin, [facility] STRESS AND REST Medical Branch NUCLEAR STRESS TEST 2022-11-22 17:15:00 Ravin, [facility] CARDIOLOGY (DO NOT SCHED) Medica l Branch NUCLEAR STRESS TEST 2022-11-22 17:15:00 Ravin, [facility] CARDIOLOGY (DO NOT SCHED) Medica l Branch NM MYOCARDIUM PERFUSION 2022-11-22 17:15:00 Ravin, [facility] STRESS AND REST Medical Branch NM MYOCARDIUM PERFUSION 2022-11-22 17:15:00 Ravin, [facility] STRESS AND REST Medical Branch NUCLEAR STRESS TEST 2022-11-22 17:15:00 Ravin, [facility] CARDIOLOGY (DO NOT SCHED) Medica l Branch NM MYOCARDIUM PERFUSION 2022-11-22 17:15:00 Ravin, [facility] STRESS AND REST Medical Branch NUCLEAR STRESS TEST 2022-11-22 17:15:00 Ravin, [facility] CARDIOLOGY (DO NOT SCHED) Medica l Branch ASSIGNMENT OF BENEFITS 2022-11-22 13:14:23 Doctor Unassigned, [facility] [place] HB ECG ROUTINE & RHYTHM 2022-11-08 14:20:55 Ravin [facility] STRIP Medical Branch [facility] PATIENT FINANCIAL 2022-11-02 18:05:55 Doctor Unassigned, Un [facility] POLICY [facility] BASIC METABOLIC PANEL 2022-10-27 08:37:00 Sarah Abbott [facility] LACTIC ACID LEVEL 2022-10-27 08:37:00 [facility] ESTIMATED GFR 2022-10-27 08:37:00 [facility] CBC WITH PLATELET AND 2022-10-26 11:18:00 [facility] DIFFERENTIAL BASIC METABOLIC PANEL 2022-10-26 11:18:00 [facility] LACTIC ACID LEVEL 2022-10-26 11:18:00 [facility] ESTIMATED GFR 2022-10-26 11:18:[address] [facility] CT SINUS WO CONTRAST 2022-10-25 23:52:27 [facility] ECG 12-LEAD 2022-10-25 21:44:16 [facility] [place] CT CHEST WO CONTRAST 2022-10-25 19:05:34 [facility] [place] XR CHEST 1 VW PORTABLE 2022-10-25 17:42:27 Elan Wild [facility] COVID-19, INFLUENZA A&B, 2022-10-25 17:10:00 [facility] AND RSV QUALITATIVE [place] RT-PCR CBC WITH PLATELET AND 2022-10-25 17:10:00 Beny Wildjesse Peña [facility] DIFFERENTIAL COMPREHENSIVE METABOLIC 2022-10-25 17:10:00 [facility] PANEL LACTIC ACID LEVEL 2022-10-25 17:10:00 [facility] NATRIURET[facility] PEPTIDE 2022-10-25 17:10:00 [facility] TROPONIN T 2022-10-25 17:10:00 [facility] ESTIMATED GFR 2022-10-25 17:10:00 [facility] ECG ED PRELIMINARY 2022-10-25 16:28:03 [facility] INTERPRETATION [place] XR KNEE 3 VW LEFT 2022-04-29 14:06:14 Liss Nava [facility] XR KNEE AP STANDING 2022-04-29 14:05:22 Liss Nava [facility] BILATERAL AUTHORIZATION FOR RELEASE 2022-04-11 05:01:00 Doctor Unassigned, [facility] Plan of Care Planned Activity Planned Date Details Comments Source Future Scheduled 2023-05-11 Screening for [facility] Test 23:23:32 malignant neoplasm of colon (procedure) [code = [id number]] Future Scheduled 2023-05-11 Screening for [facility] Test 23:23:32 malignant neoplasm of colon (procedure) [code = [id number]] Future Scheduled 2023-05-11 Screening for [facility] [facility] Test 23:23:32 malignant neoplasm of colon (procedure) [code = 218017529] Future Scheduled 2023-05-11 Hepatitis C screening [facility] Test 23:23:32 (procedure) [code = 038898449] Future Scheduled 2023-05-11 BREAST CANCER [facility] Test 23:23:32 SCREENING [code = BREAST CANCER SCREENING] Future Scheduled 2023-05-11 Screening for [facility] Test 23:23:32 malignant neoplasm of colon (procedure) [code = 437909786] Future Scheduled 2023-05-11 Screening for [facility] Test 23:23:32 malignant neoplasm of colon (procedure) [code = 115899116] Future Scheduled 2023-05-11 SHINGLES VACCINES (1 Met [facility] Test 23:23:32 of 2) [code = SHINGLES VACCINES (1 of 2)] Future Scheduled 2023-05-11 65+ PNEUMOCOCCAL [facility] Test 23:23:32 VACCINE (2 - PCV) [code = 65+ PNEUMOCOCCAL VACCINE (2 - PCV)] Future Scheduled 2023-05-11 COVID-19 VACCINE (5 - [facility] Test 23:23:32 season) [code = COVID-19 VACCINE (5 - season)] Future Scheduled 2023-05-11 INFLUENZA VACCINE (#1) [facility] Test 23:23:32 [code = INFLUENZA VACCINE (#1)] Future Scheduled 2023-04-21 Screening for [facility] Test 17:39:58 malignant neoplasm of colon (procedure) [code = 306310773] Future Scheduled 2023-04-21 Screening for [facility] Test 17:39:58 malignant neoplasm of colon (procedure) [code = 899157220] Future Scheduled 2023-04-21 Screening for [facility] Test 17:39:58 malignant neoplasm of colon (procedure) [code = 517083000] Future Scheduled 2023-04-21 Hepatitis C screening [facility] Test 17:39:58 (procedure) [code = 416113343] Future Scheduled 2023-04-21 BREAST CANCER [facility] Test 17:39:58 SCREENING [code = BREAST CANCER SCREENING] Future Scheduled 2023-04-21 [facility] Test 17:39:58 malignant neoplasm of colon (procedure) [code = 365481431] Future Scheduled 2023-04-21 [facility] for [facility] Test 17:39:58 malignant neoplasm of colon (procedure) [code = 736324323] Future Scheduled 2023-04-21 SHINGLES VACCINES (1 Met [facility] Test 17:39:58 of 2) [code = SHINGLES VACCINES (1 of 2)] Future Scheduled 2023-04-21 65+ [facility]OCOCCAL [facility] 17:39:58 VACCINE (2 - PCV) [code = 65+ PNEUMOCOCCAL VACCINE (2 - PCV)] Future Scheduled 2023-04-21 COVID-19 VACCINE ([facility] Test 17:39:58 Moderna series) [code = COVID-19 VACCINE (5 - Moderna series)] Future Scheduled 2023-04-21 INFLUENZA VACCINE (#1) [facility] Test 17:39:58 [code = INFLUENZA VACCINE (#1)] Future Scheduled 2022-12-06 Hepatitis C screening [facility] Test 15:38:32 (procedure) [code = 013678567] Future Scheduled 2022-12-06 SHINGLES VACCINES (1 [facility] Test 15:38:32 of 2) [code = SHINGLES VACCINES (1 of 2)] Future Scheduled 2022-12-06 BREAST CANCER [facility] Test 15:38:32 SCREENING [code = BREAST CANCER SCREENING] Future Scheduled 2022-12-06 COLONOSCOPY SCREENING [facility] Test 15:38:32 [code = COLONOSCOPY SCREENING] Future Scheduled 2022-12-06 65+ [facility]:38:32 VACCINE (2 - PCV) [code = 65+ PNEUMOCOCCAL VACCINE (2 - PCV)] Future Scheduled 2022-12-06 INFLUENZA VACCINE [facility] Test 15:38:32 [code = INFLUENZA VACCINE] Encounters Start End Encounter Admission Attending Care Care Encounter Source Date/Time Date/Time Type Type Clinicians Facility Department ID 2021-05-18 Emergency [facility] [id number] Univers 09:26:53 ity [facility] 2021-05-16 Emergency [facility] [id number] Univers [facility] Emergency [facility] [id number] Univers 14:05:45 ity of [facility] 2023-03-24 2023-03-24 [facility] 1.2.840.114 10 [id number] Univers 00:00:00 00:00:00 Elin L HEALTH 350.1.13.10 it y of [place] 4.2.7.2.686 Asael as CHANCE?BLEA [phone] Oh stephany GARG 198 [facility] 2023-03-23 2023-03-23 Orders Doctor SUSHIL 1.2.840.114 [id number] Univers 00:00:00 00:00:00 Only Unassigned[place] 350.1.13.10 ity of [place] [facility] 4.2.7.2.686 Asael as [phone] [address] 2023-03-01 2023-03-01 [facility] 1.2.840.114 [id number] Univers 00:00:00 00:00:00 Jonathan S HEALTH 350.1.13.10 it y of [place] 4.2.7.2.686 Asael as CHANCE?BLEA [id number] Oh stephany GARG [address] [place] [address] 2023-02-27 2023-02-27 Orders Doctor SUSHIL 1.2.840.114 [id number] Univers 00:00:00 00:00:00 Only [place]assigned[place] 350.1.13.10 ity of [place] [facility] 4.2.7.2.686 Asael as [phone] [address] 2023-02-24 2023-02-24 [facility] 1.2.840.114 [id number] Univers 00:00:00 00:00:00 Jonathan S HEALTH 350.1.13.10 it y of [place] 4.2.7.2.686 Asael as CHANCE?BLEA [id number] Oh stephany GARG [address] [place] [address] 2023-02-22 2023-02-22 Blu [facility] 1.2.840.114 [id number] Univers 00:00:00 00:00:00 Jonathan S HEALTH 350.1.13.10 it y of [place] 4.2.7.2.686 Asale as CHANCE?BLEA [id number] Me dical JACKSON 198 [facility] OFFICE [facility] 2023-02-21 2023-02-21 Outpatient Cj KENNEDY [facility] [id number] Univers 15:00:00 15:00:00 JONATHAN ity [facility] 2023-02-20 2023-02-20 Orders Doctor SUSHIL 1.2.840.114 [id number] Univers 00:00:00 00:00:00 Only [place]assigned[place] 350.1.13.10 ity of [place] [facility] 4.2.7.2.686 Asael as [id number] [address] 2023-02-03 2023-02-03 Outpatient Cj KENNEDY [facility] [id number] Univers 09:30:00 09:30:00 [facility] 2023-01-27 2023-01-27 Office [facility] 1.2.840.114 [id number] Univers 10:45:00 11:00:00 Visit [facility] 350.1.13.10 it y of [place] 4.2.7.2.686 Asael as CHNACE?BLEA [id number] Oh stephany GARG [address] [place] [address] OFFICE [facility] 2023-01-27 2023-01-27 Outpatient Cj KENNEDY [facility] [id number] Univers 10:45:00 10:45:00 [facility] 2023-01-26 2023-01-26 Refelo [facility] 1.2.840.114 [id number] Univers 00:00:00 00:00:00 [facility] 350.1.13.10 it y of [place] 4.2.7.2.686 Asael as CHANCE?BLEA [phone] Oh dical JACKSON 198 [facility] OFFICE [facility] 2023-01-11 2023-01-11 Blu [facility] 1.2.840.114 [id number] Univers 00:00:00 00:00:00 [facility] HEALTH 350.1.13.10 it y of [place] 4.2.7.2.686 Asael as CHANCE?BLEA [id number] Me dical JACKSON [address] [place] [address] OFFICE [facility] 2023-01-10 2023-01-10 Telephone [facility] 1.2.840.114 10 [id number] Univers 00:00:00 00:00:00 Elin L HEALTH 350.1.13.10 it y of [place] 4.2.7.2.686 Asael as CHANCE?BLEA [id number] Oh stephany GARG [address] [place] [address] OFFICE [facility] 2023-01-10 2023-01-10 Telephone [facility] 1.2.927.320 [id number] Univers 00:00:00 00:00:00 Jonathan S HEALTH 350.1.13.10 it y of [place] 4.2.7.2.686 Asael as CHANCE?BLEA [id number] Oh stephany GARG [address] [place] [address] OFFICE [facility] 2023-01-06 2023-01-06 [facility]phone [facility] 1.2.840.114 10 [id number] Univers 00:00:00 00:00:00 Elin HEALTH 350.1.13.10 it y of [place] 4.2.7.2.686 Asael as CHANCE?BLEA [id number] Oh stephany GARG [address] [place] [address] OFFICE [facility] 2023-01-05 2023-01-05 Outpatient R BRENT [facility] [id number] Univers 09:25:00 23:59:00 JONATHAN ity of [facility] 2023-01-05 2023-01-05 Office [facility] 1.2.840.114 [id number] Univers 10:15:00 10:30:00 Visit [facility] HEALTH 350.1.13.10 it y of [place] 4.2.7.2.686 Asael as CHANCE?BLEA [phone] Oh stephany GARG [address] [place] [address] OFFICE [facility] 2023-01-05 2023-01-05 Orders Doctor SUSHIL 1.2.840.114 [id number] Univers 00:00:00 00:00:00 Only [place]assigned[place] 350.1.13.10 ity of [place] [facility] 4.2.7.2.686 Asael as [phone] [address] 2023-01-05 2023-01-05 Telephone [facility] 1.2.279.213 [id number] Univers 00:00:00 00:00:00 Jonathan S HEALTH 350.1.13.10 it y of [place] 4.2.7.2.686 Asael as CHANCE?BLEA [id number] Oh stephany GARG 198 [facility] OFFICE [facility] 2023-01-03 2023-01-03 Patient [facility] 1.2.840.114 [id number] Univers 00:00:00 00:00:00 Outreach Nuzhat HEALTH 350.1.13.10 ity of [place] 4.2.7.2.686 Asael as CHANCE?BLEA [phone] Oh stephany GARG 198 [facility] OFFICE [facility] 2022-12-30 2022-12-30 Telephone [facility] 1.2.840.114 10 [id number] Univers 00:00:00 00:00:00 Elin L HEALTH 350.1.13.10 it y of [place] 4.2.7.2.686 Asael as CHANCE?BLEA [id number] Oh stephany GARG 198 [facility] OFFICE [facility] 2022-12-29 2022-12-29 Refill [facility] 1.2.323.496 [id number] [id number] Univers 00:00:00 00:00:00 Elin L HEALTH 350.1.13.10 it y of [place] 4.2.7.2.686 Asael as CHANCE?BLEA [id number] Oh stephany GARG 044 [facility] 2022-12-29 2022-12-29 Telephone [facility] 1.2.214.847 [id number] Univers 00:00:00 00:00:00 Jonathan S HEALTH 350.1.13.10 it y of [place] 4.2.7.2.686 Asael as CHANCE?BLEA [id number] Oh stephany GARG 198 [facility] OFFICE [facility] 2022-12-27 2022-12-27 Telephone [facility] 1.2.840.114 10 [id number] Univers 00:00:00 00:00:00 Elin L HEALTH 350.1.13.10 it y of [place] 4.2.7.2.686 Asael as CHANCE?BLEA [id number] Oh stephany GARG 044 [facility] OFFICE [facility] 2022-12-26 2022-12-26 Office [facility] 1.2.840.114 [id number] Univers 14:00:00 14:04:[address] [facility] 350.1.13.10 it y of [place] 4.2.7.2.686 Asael as CHANCE?BLEA [id number] Oh stephany GARG 198 [facility] OFFICE [facility] 2022-12-26 2022-12-26 [facility] [id number] Univers 14:00:00 14:04:12 [facility] 2022-12-26 2022-12-[address] [facility] [id number] Univers 14:00:00 14:00:00 [facility] 2022-12-26 2022-12-26 Telephone [facility] 1.2.840.114 10 [id number] Univers 00:00:00 00:00:00 [facility] HEALTH 350.1.13.10 it y of [place] 4.2.7.2.686 Asael as CHANCE?BLEA [id number] Oh stephany GARG 198 [facility] OFFICE [facility] 2022-12-26 2022-12-26 Telephone [facility] 1.2.840.114 10 [id number] Univers 00:00:00 00:00:00 Elin L HEALTH 350.1.13.10 it y of [place] 4.2.7.2.686 Asael as CHANCE?BLEA [id number] Oh stephany GARG 198 [facility] OFFICE [facility] 2022-12-23 2022-12-23 Telephone [facility] 1.2.840.114 10 [id number] Univers 00:00:00 00:00:00 Elin L HEALTH 350.1.13.10 it y of [place] 4.2.7.2.686 Asael as CHANCE?BLEA [id number] Oh stephany GARG 198 [facility] OFFICE [facility] 2022-12-23 2022-12-23 Telephone [facility] 1.2.840.114 10 [id number] Univers 00:00:00 00:00:00 Elin L HEALTH 350.1.13.10 it y of [place] 4.2.7.2.686 Asael as CHANCE?BLEA [id number] Oh stephany GARG 198 [facility] OFFICE [facility] 2022-12-22 2022-12-22 Telephone [facility] 1.2.840.114 10 [id number] Univers 00:00:00 00:00:00 Elin Crespo HEALTH 350.1.13.10 it y of [place] 4.2.7.2.686 Asael as CHANCE?BLEA [phone] Oh stephany GARG 198 [facility] OFFICE [facility] 2022-12-22 2022-12-22 [place] [facility] 1.2.840.114 10 [id number] Univers 00:00:00 00:00:00 Elin Crespo HEALTH 350.1.13.10 [facility] 4.2.7.2.686 Asael as CHANCE?BLEA [id number] Oh stephany GARG [address] [place] [address] 2022-12-21 2022-12-21 Telephone [facility] 1.2.840.114 10 [id number] Univers 00:00:00 00:00:00 Elin Crespo [facility] 350.1.13.10 it y of [place] 4.2.7.2.686 Asael as CHANCE?BLEA [id number] Oh stephany GARG [address] [place] [address] 2022-12-19 2022-12-20 Outpatient Cj ALVARADO [facility] [id number] Univers 07:09:00 17:10:00 KATIANA foy [facility] 2022-12-19 2022-12-20 [facility] Bethany Elin [facility] 1.2.840 .114 [id number] Univers 07:09:00 17:10:00 Katiana Castaneda 350.1.13.10 ity of [place] 4.2.7.2.686 [place] [facility] [id number] [address] 2022-12-20 2022-12-20 Telephone [facility] 1.2.840.114 10 [id number] Univers 00:00:00 00:00:00 Elin Crespo HEALTH 350.1.13.10 it y of [place] 4.2.7.2.686 Asael as CHANCE?BLEA [id number] Me dickurtis GARG [address] [facility] OFFICE [facility] 2022-12-19 2022-12-19 Surgery [facility] 1.2.656.152 [id number] Univers 09:30:00 11:48:00 Elin GONZALEZTON 350.1.13.10 i ty of [place] 4.2.7.2.686 [place] SURGICAL [id number] [address] 2022-12-16 2022-12-16 Telephone Bethany [facility] 1.2.840.114 10 [id number] Univers 00:00:00 00:00:00 Elin Crespo HEALTH 350.1.13.10 it y of [place] 4.2.7.2.686 Asael as CHANCE?BLEA [id number] Oh stephany GARG 198 [facility] OFFICE [facility] 2022-12-15 2022-12-15 Office Brent [facility] 1.2.840.114 [id number] Univers 11:00:00 11:15:[address] [facility] 350.1.13.10 [facility] 4.2.7.2.686 Asael as CHANCE?BLEA [id number] Oh stephany GARG 198 [facility] OFFICE [facility] 2022-12-15 2022-12-15 Outpatient R BRENT [facility] [id number] Univers 11:00:00 11:00:00 JONATHAN ity of [facility] 2022-12-15 2022-12-15 Activities Director Scouting Shaina, [facility] 1.2.8 40.114 [id number] Univers 07:45:00 08:00:00 Visit Elin Sims 350.1.13.10 ity of [place] 4.2.7.2.[place] PROFESS[place] [id number] Me dical NAL 353 [facility] 2022-12-09 2022-12-09 Ancillary Will Marinelli [facility] 1.2.840. 114 [id number] Univers 10:15:00 11:00:00 Visit Elin Sims 350.1.13.10 ity of [place] 4.2.7.2.686 [place] [id number] Me dical NAL 179 [facility] 2022-12-09 2022-12-09 Outpatient R BETHANY [facility] [id number] Univers 10:15:00 10:15:00 ELIN foy [facility] 2022-12-06 2022-12-06 Telephone [facility] 1.2.840.114 10 [id number] Univers 00:00:00 00:00:00 Elin Crespo HEALTH 350.1.13.10 it y of [place] 4.2.7.2.686 Asael as CHANCE?BLEA [id number] Oh stephany GARG 198 [facility] OFFICE [facility] 2022-12-02 2022-12-02 Telephone [facility] 1.2.840.114 10 [id number] Univers 00:00:00 00:00:00 Elin Crespo HEALTH 350.1.13.10 it y of [place] 4.2.7.2.686 Asael as CHANCE?BLEA [id number] Oh stephany GARG [address] [place] [address] 2022-12-02 2022-12-02 Prep For [facility] 1..840.114 103 [id number] Univers 00:00:00 00:00:00 Surgery Elin Crespo HEALTH 350.1.13.10 it y of [place] 4.2.7.2.686 Asael as CHANCE?BLEA [id number] Oh stephany GARG 198 [facility] 2022-12-01 2022-12-01 Outpatient R BRENT [facility] [id number] Univers 10:15:00 10:56:47 JONATHAN foy [facility] 2022-12-01 2022-12-01 Office [facility] 1..840.114 [id number] Univers 10:15:00 10:56:47 Visit Jonathan HEALTH 350.1.13.10 it y of [place] 4.2.7.2.686 Asael as CHANCE?BLEA [phone] Oh stephany GARG [address] [place] [address] 2022-11-28 2022-11-28 Telephone [facility] 1.2.840.114 10 [id number] Univers 00:00:00 00:00:00 Elin L HEALTH 350.1.13.10 it y of [place] 4.2.7.2.686 Asael as CHANCE?BLEA [id number] Oh dical KNEY [address] [facility] OFF[facility]ILD[facility] 2022-11-23 2022-11-23 [facility] 1.2.363.647 [id number] Univers 00:00:00 00:00:00 Qiajeanette [place] 350.1.13.10 ity of [place] 4.2.7.2.[place] [phone] Oh dical NAL 059 [facility] 2022-11-22 2022-11-22 [facility] 1.2.840.114 [id number] Univers 08:17:51 08:17:51 Encounter Qiangjun [place] 350.1.13.10 ity of [place] 4.2.7.2.[place] CAMPUS [id number] [facility] [address] 2022-11-22 2022-11-22 [facility] 1.2.840.114 [id number] Univers 08:17:15 08:17:15 Encounter Qiangjun [place] 350.1.13.10 ity of [place] 4.2.7.2.686 [place] C[place] [id number] [facility] [address] 2022-11-22 2022-11-22 [facility] 1.2.840.114 [id number] Univers 08:16:35 08:16:35 Encounter Qiangjun [place] 350.1.13.10 ity of [place] 4.2.7.2.686 [place] C[place] [id number] [facility] [address] 2022-11-22 2022-11-22 Outpatient R [facility] [id number] Univers 08:15:51 08:15:51 QIANGJUN ity o f [facility] 2022-11-22 2022-11-22 [facility] 1.2.840.114 [id number] Univers 08:15:51 08:15:51 Encounter Qiangjun [place] 350.1.13.10 ity of [place] 4.2.7.2.686 [place] C[place]US [id number] [facility] [address] 2022-11-22 2022-11-22 Orders Doctor SUSHIL 1.2.840.114 [id number] Univers 00:00:00 00:00:00 Only Unassigned[place] 350.1.13.10 ity of [place] [facility] 4.2.7.2.686 Asael as [id number] [address] 2022-11-22 2022-11-22 Telephone [facility] 1.2.840.114 10 [id number] Univers 00:00:00 00:00:00 Elin Crespo HEALTH 350.1.13.10 it [facility] 4.2.7.2.686 Asael as CHANCE?BLEA [id number] [address] OFFICE [facility] 2022-11-08 2022-11-08 Outpatient R RAVIN [facility] [id number] Univers 09:20:00 09:37:14 INDIA foy o f [facility] 2022-11-08 2022-11-08 Office [facility] 1.2.840.114 [id number] Univers 09:20:00 09:37:14 Visit India [place] 350.1.13.10 ity of [place] 4.2.7.2.686 [place] [phone] Oh herberkurtis [facility] 059 [facility] 2022-11-04 2022-11-04 Telephone [facility] 1.2.738.654 [id number] Univers 00:00:00 00:00:00 Jonathan Kelsey HEALTH 350.1.13.10 it y of [place] 4.2.7.2.686 Asael as CHANCE?BLEA [id number] Oh stephany [address] OFFICE [facility] 2022-11-02 2022-11-02 Outpatient R BETHANY [facility] [id number] Univers 13:00:00 14:32:28 ELIN foy [facility] 2022-11-02 2022-11-02 Office Jonathan Kennedy [facility] 1.2.840.114 [id number] Univers 13:00:00 13:15:00 Visit Elin Sims HEALTH 350.1.13.10 ity [facility] 4.2.7.2.686 Asael as CHANCE?BLEA [id number] Oh stephany GARG [address] [facility] OFFICE BUILDING 2022-11-02 2022-11-02 Orders Doctor SUSHIL 1.2.840.114 [id number] Univers 00:00:00 00:00:00 Only [place]assigned[place] 350.1.13.10 ity of [place] [facility] 4.2.7.2.686 Asael as [id number] [address] 2022-10-25 2022-10-27 Emergency Elan Wild 1.2.840.1 104 [id number] Methodi 11:19:00 12:45:00 Sarah Abbott 70250.1.[address] 3.430.2.7 Hospit a .3.341455 l .8 2022-10-25 2022-10-27 Emergency Elan Wild 1.2.840.1 104 [id number] Methodi 11:19:00 12:45:00 Sarah Abbott 51531.1.[address] 3.430.2.7 Hospit a .3.951589 l .8 2022-10-25 2022-10-25 Travel 1.2.840.1 1.2.662.398 1303 [id number] Methodi 00:00:00 00:00:[address] 3.430.2.7 0.2.7.3.698 Ho spita .3.324362 084.8 l .8 2022-10-25 2022-10-25 Travel 1.2.840.1 1.2.524.614 2590 [id number] Methodi 00:00:00 00:00:[address] 3.430.2.7 0.2.7.3.698 Ho spita .3.840952 084.8 l .8 2022-04-29 2022-04-29 Office Elana 1.2.840.1 [id number] 4108 Methodi 09:00:00 09:17:07 Visit Liss 71149.1.[address] Cont[facility] 3.430.2.7 Hospit a .3.188585 l .8 2022-04-29 2022-04-29 Outpatient [facility] [id number] [place] 00:00:00 00:00:00 LISS [address] 2022-04-29 2022-04-29 Outpatient [facility] [id number] 554 [place] 00:00:00 00:00:[address] LISS [address] 2022-04-29 2022-04-29 Travel 1.2.840.1 1.2.946.308 3334 [id number] Methodi 00:00:00 00:00:[address] 3.430.2.7 0.2.7.3.698 Ho spita .3.946617 084.8 l .8 2022-04-13 2022-04-13 Outpatient [facility] [id number] [facility] 00:00:00 00:00:00 [id number] Medica l Group 2022-04-11 2022-04-11 Orders Doctor SUSHIL 1.2.840.114 [id number] Univers 00:00:00 00:00:00 Only [place]igned[place] 350.1.13.10 [facility] 4.2.7.2.686 Asael as [id number] [address] 2022-03-11 2022-03-11 Outpatient R [facility] [id number] Univers 10:00:00 10:09:02 JONATHAN castroy of [facility] 2022-03-11 2022-03-11 Office Brent [facility] 1.2.840.114 [id number] Univers 10:00:00 10:09:[address] [facility] 350.1.13.10 it y of [place] 4.2.7.2.686 Asael as CHANCE?BLEA [id number] Oh herber[address] MEDICAL OFFICE [facility] 2022-03-03 2022-03-03 Office Brent [facility] 1.2.840.114 [id number] Univers 10:00:00 10:15:[address] [facility] 350.1.13.10 it y of [place] 4.2.7.2.686 Asael as CHANCE?BLEA [id number] Oh stephany GARG [address] [facility] OFFICE [facility] 2022-03-03 2022-03-03 Outpatient [facility] [id number] Univers 10:00:00 10:00:00 [facility] 2022-03-02 2022-03-02 [facility] [id number] Univers 00:00:00 00:00:00 [facility] 350.1.13.10 it y of [place] 4.2.7.2.686 Asael as CHANCE?BLEA [id number] Oh stephany GARG [address] [place] [address] 2022-02-24 2022-02-24 [facility] 1.2.840.114 [id number] Univers 14:30:00 14:45:[address] [facility] 350.1.13.10 it y of [place] 4.2.7.2.686 Asael as CHANCE?BLEA [id number] Oh stephany GARG [address] [place] [address] 2022-02-24 2022-02-24 Outpatient [facility] [id number] Univers 14:30:00 14:30:00 [facility] 2022-02-24 2022-02-24 Out[facility] [id number] Univers 14:30:00 14:30:00 [facility] 2022-02-16 2022-02-16 [facility] 1.2.840.114 [id number] Univers 15:45:00 16:00:[address] [facility] 350.1.13.10 it y of [place] 4.2.7.2.686 Asael as CHANCE?BLEA [id number] Oh stephany GARG [address] [place] [address] OFFICE [facility] 2022-02-16 2022-02-16 Out[facility] [id number] Univers 15:45:00 15:45:00 [facility] 2022-02-02 2022-02-02 Fran Abbott, 1.2.840.1 [id number] Methodi 00:00:00 00:00:00 Orders Sarah Antoine. [address]60.1.[address] 3.430.2.7 Hospit a .[id number] l .8 2022-01-10 2022-01-10 [address] [facility] [facility] [id number] Univers 14:00:00 14:00:00 ELIN foy [facility] 2021-12-28 2021-12-28 Out[facility] [id number] Univers 14:15:00 15:34:20 JONATHAN darius [place] [facility] 2021-12-28 2021-12-28 [facility] 1.2.840.114 [id number] Univers 14:15:00 15:34:[address] [facility] 350.1.13.10 it y [facility] 4.2.7.2.686 Asael as CHANCE?BLEA [phone] Oh herber[address] OFFICE [facility] 2021-12-27 2021-12-27 Office [facility] 1.2.840.114 [id number] Univers 16:00:00 16:15:[address] [facility] 350.1.13.10 it y of [place] 4.2.7.2.686 Asael as CHANCE?BLEA [phone] Oh herber[address] OFFICE [facility] 2021-12-27 2021-12-27 Outpatient [facility] [id number] Univers 16:00:00 16:00:00 JONATHAN danii [facility] 2021-12-27 2021-12-27 Outpatient [facility] [id number] Univers 16:00:00 16:00:00 JONATHAN gloriadarius [facility] 2021-12-27 2021-12-27 Orders Doctor LING 1.2.840.114 [id number] Univers 00:00:00 00:00:00 Only Unassigned, [place] 350.1.13.10 ity of [place] [facility] 4.2.7.2.686 Asael as [phone] [address] 2021-09-06 2021-09-06 Emergency X PADMINI, [facility] ERT [id number] Univers 16:46:00 19:27:00 LIGIA foy [facility] 2021-09-06 2021-09-06 Emergency Adan, [facility] 1.2.840.114 [id number] Univers 16:46:00 19:27:00 Ligia HDEZ 350.1.13.10 i ty of [facility] 4.2.7.2.686 [place] [phone] [facility] [address] 2021-06-04 2021-06-04 Activities Director [employer], Ang - Db [facility] 1.2.840.1 [id number] Univers 08:26:55 08:41:55 Visit Elin Sims [facility] 350.1.13.10 ity of [facility] 4.2.7.2.686 Asael as CHANCE?BLEA [phone] Oh stephany GARG [address] MEDICAL OFFICE [facility] 2021-06-04 2021-06-04 Out[address] [facility] [id number] Univers 08:15:00 08:31:31 ELIN foy [facility] 2021-06-04 2021-06-04 Office Jonathan Kennedy [facility] 1.2.840.114 [id number] Univers 07:20:36 08:31:31 Visit Elin Sims [facility] 350.1.13.10 ity of [facility] 4.2.7.2.686 Asael as CHANCE?BLEA [phone] Oh stephany GARG [address] MEDICAL OFFICE [facility] 2021-06-04 2021-06-04 Outpatient R [facility] [id number] Univers 08:15:00 08:15:00 ELIN foy [facility] 2021-05-13 2021-05-16 Inpatient [facility] [id number] 23 [place] 00:00:00 00:00:00 JUNG Byrnes [facility] 2021-05-10 2021-05-10 Emergency [facility] 1.2.086.606 [id number] Univers 12:57:00 14:11:00 Luis Carlos Hdez 350.1.13.10 i ty of [place] 4.2.7.2.686 [facility] [phone] [place] 3125[address] 2021-03-24 2021-03-24 Hospital [facility] 1.2.840.114 [id number] Univers 15:55:00 23:59:00 Encounter Jonathan Kelsey [facility] 350.1.13.10 ity of [place] 4.2.7.2.686 Asael as Chance?Blea [phone] Oh stephany garg [address] [facility] Office [facility] 2021-03-24 2021-03-24 Office [facility] 1.2.840.114 [id number] Univers 15:44:05 15:59:05 Visit Jonathan [facility] 350.1.13.10 it y of [place] 4.2.7.2.686 Asael as Chance?Blea [phone] Oh herberkurtis garg 198 [facility] Office [facility] 2021-03-24 2021-03-24 Outpatient [facility] [id number] Univers 15:15:00 15:15:00 JONATHAN itdarius [facility] 2021-03-12 2021-03-12 Outpatient R [facility] [id number] Univers 09:00:00 09:00:00 ELIN darius [facility] 2021-03-11 2021-03-11 Outpatient Cj SIMS [facility] [id number] Univers 08:45:00 08:45:00 ELIN darius [facility] 2021-02-25 2021-02-25 Outpatient MADELEINE SON [facility] [id number] Univers 10:00:00 10:00:00 MADELEINE SEBASTIAN i [facility] 2021-01-22 2021-01-24 [id number] [place] 00:00:00 00:00:00 SARAH [address] [facility] 2020-12-21 2020-12-21 Emergency [facility] 1.2.840.114 [id number] Univers 18:08:00 21:05:00 Nallely Machuca Alena 350.1.13.10 ity of [place] 4.2.7.2.686 [facility] [phone] [address] 2020-12-10 2020-12-12 Inpatient VIV, [facility] [id number] [place] 00:00:00 00:00:00 SARAH [address] 2020-11-05 2020-11-05 Outpatient R BETHANY [facility] [id number] Univers 09:15:00 09:15:00 ELIN foy [facility] 2020-11-05 2020-11-05 Office [facility] 1.2.729.667 [id number] Univers 08:38:47 09:10:24 Visit Elin Crespo [employer] 350.1.13.10 it y of Surgical 4.2.7.2.686 Asael as Specialti [phone] Me dical es 198 [facility] 2020-11-05 2020-11-05 Telephone [facility] 1.2.840.114 [id number] Univers 00:00:00 00:00:00 Elin Crespo [employer] 350.1.13.10 it y of Surgical 4.2.7.2.686 Asael as Specialti [phone] Oh dical es 198 [facility] 2020-11-03 2020-11-03 Emergency [facility] 1.2.801.035 [id number] Univers 11:55:00 15:49:00 Luis Carlos [place] 350.1.13.10 i ty of [place].7.2.[place] [phone] [address] 2020-10-28 2020-10-28 Outpatient Raju_P [facility] [id number] [place] 11:38:00 11:38:00 04[facility] 2020-02-28 2020-02-28 Telephone [facility] 1.2.840.114 [id number] Univers 00:00:00 00:00:00 Elin Crespo [employer] 350.1.13.10 it y of Surgical 4.2.7.2.686 Asael as Specialti [phone] Oh dical es 198 [facility] 2020-02-28 2020-02-28 Telephone [facility] 1.2.840.114 [id number] 00:00:00 00:00:00 Elin Crespo Health 350.1.13.10 Surgical 4.2.7.2.686 Specialti [phone] es 198 [place] 2020-02-27 2020-02-27 [facility] 1.2.840.114 [id number] [facility] 08:32:08 23:59:00 Encounter Elin Crespo Health 350.1.13.10 ity of Surgical 4.2.7.2.686 Asael as Specialti [phone] Me dical es 809 [facility] 2020-02-27 2020-02-27 [facility] 1.2.840.114 [id number] 08:32:08 23:59:00 Encounter Elin Crespo Health 350.1.13.10 Surgical 4.2.7.2.686 Specialti [phone] es 809 [place] 2020-02-27 2020-02-27 Outpatient R [facility] [id number] Univers 09:00:00 09:00:00 ELIN ity [facility] 2020-02-27 2020-02-27 Office [facility] 1.2.542.350 [id number] [facility] 08:10:32 08:49:41 Visit Elin Parker 350.1.13.10 it y of Surgical 4.2.7.2.686 Asael as Specialti [phone] Me dical es 198 [facility] 2020-02-27 2020-02-27 Office [facility] 1.2.558.706 [id number] 08:10:32 08:49:41 Visit Elin Crespo Health 350.1.13.10 Surgical 4.2.7.2.686 Specialti [id number] es 198 [place] 2019-10-31 2019-10-31 Activities Director Scouting Christiano [facility] Main [facility] 1.2.8 40.114 [id number] Univers 08:04:46 08:19:46 Visit Musa Turner [place] 350.1.13.10 ity of [place].2.7.2.[place] [phone] Me dical nal 353 [facility] 2019-10-31 2019-10-31 Outpatient R MUSA TURNER [facility] [id number] Univers 07:45:00 07:45:00 ity of [facility] 2019-10-31 2019-10-31 Outpatient R MUSA TURNER [facility] [id number] Univers 07:45:00 07:45:00 ity [facility] 2019-10-31 2019-10-31 Orders Doctor SUSHIL 1.2.840.114 [id number] Univers 00:00:00 00:00:00 Only Unassigned, [place] 350.1.13.10 ity of [place] [facility] 4.2.7.2.686 Asael as [phone] [address] Results Test Description Test Time Test Comments Results Result Comments Source ECG 12 lead 2022-10-26 21:49:33 Test Item Value Reference Range Interpretation Comme nts Ventricular rate (test code = 253) 68 Atrial rate (test code = 255) 68 SD interval (test code = 266) 148 QRSD [...] of 25-OCT-2022 16:44,-No significant change was found- [facility] 12 [id number] 21:49:33 Test Item Value Reference Range Interpretation Comments Ventricular rate (test 68 code = 253) Atrial rate (test code 68 = 255) SD interval (test code 148 = 266) QRSD [...] of 25-OCT-2022 16:44,-No significant change was found- [facility] [id number] 21:49:33 Test Item Value Reference Range Interpretation Comments Ventricular rate (test 68 code = 253) Atrial rate (test code 68 = 255) SD interval (test code 148 = 266) QRSD [...] of 25-OCT-2022 16:44,-No significant change was found- [facility] A and B [id number] 13:05:12 Test Item Value Reference Range Interpretation Comments SARS-CoV-2 (COVID-19) RNA Not detected [Presence] in Respiratory specimen by NIVIA with probe detection (test code = 53181-7) Whether patient resides in a No congregate care setting (test code = 21791-3) Date and time of symptom onset Unknown (test code = 20819-3) Whether the patient was No hospitalized for condition of interest (test code = 12555-3) Whether the patient was admitted No to intensive care unit (ICU) for condition of interest (test code = 20143-9) Whether patient is employed in a No healthcare setting (test code = 05190-1) Whether the patient has symptoms No related to condition of interest (test code = 92771-7) status (test code = No 32644-5) [facility] RNA [Presence] in Respiratory specimen by NIVIA with probe [id number] 02:03:05 Test Item Value Reference Range Interpretation Comments SARS-CoV-2 (COVID-19) RNA Not detected Not-Detected [Presence] in Respiratory specimen by NIVIA with probe detection (test code = 11897-7) Whether patient is employed in a healthcare setting (test code = 30386-3) Whether the patient has symptoms related to condition of interest (test code = 37319-1) Patient was hospitalized because of this condition (test code = 02832-0) Whether the patient was admitted to intensive care unit (ICU) for condition of interest (test code = 09199-8) Whether patient resides in a congregate care setting (test code = 91426-0) [facility]-CoV-2 (COVID-19) RNA [Presence] in Respiratory specimen by NIVIA with probe [id number] 20:51:54 Test Item Value Reference Range Interpretation Comments SARS-CoV-2 (COVID-19) RNA Not detected Not-Detected [Presence] in Respiratory specimen by NIVIA with probe detection (test code = 54565-1) Whether patient is employed in a healthcare setting (test code = 56357-1) Whether the patient has symptoms related to condition of interest (test code = 19271-3) Patient was hospitalized because of this condition (test code = 83240-4) Whether the patient was admitted to intensive care unit (ICU) for condition of interest (test code = 06819-8) Whether patient resides in a congregate care setting (test code = 49635-6) [facility] (COVID-19) RNA [Presence] in Respiratory specimen by NIVIA with probe [id number] 22:15:41 Test Item Value Reference Range Interpretation Comments SARS-CoV-2 (COVID-19) RNA Not detected Not-Detected [Presence] in Respiratory specimen by NIVIA with probe detection (test code = 71682-4) Whether patient is employed in a healthcare setting (test code = 38666-0) Whether the patient has symptoms related to condition of interest (test code = 04108-1) Patient was hospitalized because of this condition (test code = 42193-2) Whether the patient was admitted to intensive care unit (ICU) for condition of interest (test code = 73917-8) Whether patient resides in a congregate care setting (test code = 97746-2) [facility] (COVID-19) RNA [Presence] in Respiratory specimen by NIVIA with probe [id number] 19:37:15 Test Item Value Reference Range Interpretation Comments SARS-CoV-2 (COVID-19) RNA Not detected Not-Detected [Presence] in Respiratory specimen by NIVIA with probe detection (test code = 17204-0) Whether patient is employed in a healthcare setting (test code = 87066-2) Whether the patient has symptoms related to condition of interest (test code = 32476-6) Patient was hospitalized because of this condition (test code = 70346-3) Whether the patient was admitted to intensive care unit (ICU) for condition of interest (test code = 68719-1) Whether patient resides in a congregate care setting (test code = 17655-4) [facility]
--- NOTE | 2023-05-23 18:27 | ER ---
Nurse's Notes [facility] Name: Veronica Hannah Age: 73 yrs Sex: Female : 1950 Arrival Date: 05/23/2023 Time: 17:54 Bed 11 Private MD: Diagnosis: Skin Tear Presentation: 05/23 18:17 Chief complaint: Patient states: she tripped and fell this evening. pt has skin tear to cm10 right arm. Coronavirus screen: Vaccine status: Patient reports receiving the 2nd dose of the covid vaccine. Client denies travel out of the [place] in the last 14 days. Ebola Screen: Patient denies travel to an Ebola-affected area in the 21 days before illness onset. No symptoms or risks identified at this time. Initial Sepsis Screen: Does the patient meet any 2 criteria? No. Patient's initial sepsis screen is negative. Does the patient have a suspected source of infection? No. Patient's initial sepsis screen is negative. Risk Assessment: Do you want to hurt yourself or someone else? Patient reports no desire to harm self or others. Onset of symptoms was May 23, 2023. 18:17 Method Of Arrival: Wheelchair cm10 18:17 Acuity: BALJIT 4 cm10 Historical: - Allergies: 18:19 No Known Allergies; cm10 - PMHx: 18:19 Asthma; breast cancer; Cerebral Palsy; Hypertension; Hypothyroidism; cm10 - PSHx: 18:19 B mastectomy; L eye SX; cm10 - Immunization history:: Adult Immunizations up to date. - Social history:: Smoking status: Patient denies any tobacco usage or history of. Screenin:38 [facility] ED Fall Risk Assessment (Adult) History of falling in the last 3 months, tm6 including since admission Yes- single mechanical fall (1 pt). Abuse screen: Denies threats or abuse. Denies injuries from another. Nutritional screening: No deficits noted. Tuberculosis screening: No symptoms or risk factors identified. Assessment: 18:38 General: Appears in no apparent distress. Behavior is calm, cooperative, appropriate tm6 for age. Pain: Complains of pain in right arm. Neuro: Level of Consciousness is awake, alert, obeys commands, Oriented to person, place, time, situation, Appropriate for age. Cardiovascular: Capillary refill < 3 seconds Patient's skin is warm and dry. Respiratory: Airway is patent Respiratory effort is even, unlabored, Respiratory pattern is regular, symmetrical. GI: Abdomen is round non-distended. : No signs and/or symptoms were reported regarding the genitourinary system. EENT: No signs and/or symptoms were reported regarding the EENT system. Derm: Skin has skin tears on right forearm. Musculoskeletal: No signs and/or symptoms reported regarding the musculoskeletal system. Injury Description: skin tear to right forearm. Vital Signs: 18:17 BP 99 / 68; Pulse 70; Resp 18; Temp 97.3; Pulse Ox 98% ; Weight 57.15 kg; Height 4 ft. cm10 11 in. ; Pain 5/10; 18:17 Body Mass Index 25.45 (57.15 kg, 149.86 cm) cm10 18:17 Pain Scale: Adult cm10 ED Course: 17:59 Patient arrived in ED. mr 18:04 Anders Alfonso MD is Attending Physician. ec2 18:19 Triage completed. cm10 18:19 Arm band placed on Patient placed in waiting room. 10 18:38 Hilda Bolden, NICOLA is Primary Nurse. tm6 18:38 Patient has correct armband on for positive identification. Call light in reach. Side tm6 rails up X2. Provided Education on: how to redress skin tear dressing. 18:38 No provider procedures requiring assistance completed. Patient did not have IV access tm6 during this emergency room visit. Dressings: non-adherent dressing x 1 right arm. Administered Medications: No medications were administered Medication: 18:38 VIS not applicable for this client. tm6 Outcome: 18:26 Discharge ordered by . ec2 18:38 Discharged to home via wheelchair, tm6 18:38 Condition: stable 18:38 Discharge instructions given to patient, family, Instructed on discharge instructions, wound care, Demonstrated understanding of instructions, wound care, 18:41 Patient left the ED. tm6 Signatures: Veronica Durbin, Marie Hernandez, RN [facility] Anders Alfonso MD MD [facility] Hilda Bolden RN RN tm6
--- NOTE | 2023-05-23 18:27 | EDPHYS ---
Physician Documentation [facility] Name: Veronica Hannah Age: 73 yrs Sex: Female : 1950 Arrival Date: 05/23/2023 Time: 17:54 Bed 11 Private MD: ED Physician Anders Alfonso HPI: 05/23 18:25 This 73 yrs old Female presents to ER via Wheelchair with complaints of Skin ec2 Tear(s). 18:25 Patient arrives today for evaluation of injury to the right forearm. States that she ec2 was walking, subsequently was with a fall and car self with the right forearm and subsequently suffered a skin tear. Patient reports no head strike, no neck pain. Patient denies any loss of consciousness. States that she tripped she has a history of cerebral palsy. witnessed this injury and agrees with this. Patient is up-to-date on her tetanus, most recently about a year ago.. Historical: - Allergies: 18:19 No Known Allergies; cm10 - PMHx: 18:19 Asthma; breast cancer; Cerebral Palsy; Hypertension; Hypothyroidism; cm10 - PSHx: 18:19 B mastectomy; L eye SX; cm10 - Immunization history:: Adult Immunizations up to date. - Social history:: Smoking status: Patient denies any tobacco usage or history of. ROS: 18:25 Constitutional: as per hpi ec2 Exam: 18:25 Constitutional: GEN: NAD Head: atraumatic Eyes: EOMI Ears: External ears are ec2 normal. CV: regular rate LUNGS: no respiratory distress ABD: non-distended SKIN: Right forearm with 3 cm skin tear, thin, no active bleeding, no deformity noted MSK: no evidence of trauma NEURO: moves all extremities equally Vital Signs: 18:17 BP 99 / 68; Pulse 70; Resp 18; Temp 97.3; Pulse Ox 98% ; Weight 57.15 kg; Height 4 ft. cm10 11 in. ; Pain 5/10; 18:17 Body Mass Index 25.45 (57.15 kg, 149.86 cm) cm10 18:17 Pain Scale: Adult cm10 MDM: 18:05 Patient medically screened. ec2 18:25 Data reviewed: vital signs. ED course: Patient arrives today for evaluation of a skin ec2 tear to the right forearm. Examination remarkable for skin findings as noted above. Skin lesion does not appear amenable to laceration repair given the patient's friable skin. Had nursing provided wound care with nonadherent dressing and instructed the family on wound care. Will discharge home, return precautions given. Do not feel she would benefit from an x-ray given lack of deformity and lack of bony TTP.. Administered Medications: No medications were administered Disposition Summary: 05/23/23 18:26 Discharge Ordered Notes: Location: Home ec2 Condition: Stable ec2 Diagnosis - Skin Tear ec2 Discharge Instructions: - Discharge Summary Sheet ec2 - Skin Tear, [id number]-dd-Ufyl ec2 Forms: - Medication Reconciliation Form ec2 - Thank You Letter ec2 - Antibiotic Education ec2 - Prescription Opioid Use ec2 - Patient Portal Instructions ec2 - Leadership Thank You Letter ec2 Signatures: Marie Younger RN RN cm10 Anders Alfonso MD MD ec2
[2023-05-23 19:02] VITALS: BP 99/68; TEMP 97.3; O2SAT 98
== END 2023-05-23 18:41 | disposition home or self-care (01) ==
LOC: ER 17:54
DX: S51.811A Laceration without foreign body of right forearm, initial encounter (principal)
CPT/HCPCS: 99283

== ENCOUNTER 2023-06-19 14:20 | Emergency (ER) | payer OTHER ==
--- OUTSIDE RECORDS SUMMARY | 2023-06-19 14:35 | XMS REPORT | Continuity of Care Document ---
:1950 Author Organization [facility] t Address [address] [place] [address]. [address] [place] [address] Care Team Providers Name Role Phone Nicola KENDRICK, Serena Primary Care Physician Elin Sims MD Attending Clinician Doctor Unassigned, [place] Attending Clinician Unavailable Jonathan Benson Attending Clinician [...] Elana KENDRICK, Liss Conti Attending Clinician LIGIA WASHINGTON Attending Clinician Unavailable Loco CUNNINGHAM, Ligia Attending Clinician Lab, Ang - Db Attending [...] Expiration Date S hector MEDICARE PART A \\T\\ [id number] 1974 B 00:00:00 [employer] [id number] 2013 OUT OF NETWORK 00:00:00 [facility] [employer] [id number] 2022 (MEDICARE 00:00:00 REPLACEMENT HMO) Problems Condition [...] hand pain 0-29 ity of 00:00: [place] [facility] Allergies, Adverse Reactions, Alerts Allergy [...] Date Source Natural sister Mental illness [facility] Natural sister Alcohol abuse [facility] Natural brother Alcohol abuse [facility] Natural brother Mental illness [facility] Natural father Heart disease [facility] Natural [facility] Social History Social Habit Start Date Stop Date Quantity Comments Source History SDOH University o f Alcohol Std Drinks [place] [facility] History SDOH University o f Alcohol Binge [place] [facility] History SDOH Social Unive rsity of Connections [facility] Med ical Together Branch History SDOH Social Unive rsity of Connections [facility] Medical Branch History SDOH Social Unive rsity of Connections [place] [facility] Membership Branch History SDOH Social Unive rsity of Connections [place] [facility] Meetings [facility] Gender identity [facility] [place] [facility] Sexual orientation [facility] History SDOH Social 2022-12-20 2022-12-20 5 Unive rsity of Connections Phone 00:00:00 00:00:00 [facility] edical Branch History SDOH Social 2022-12-20 2022-12-20 8 Unive rsity of Connections Living 00:00:00 00:00:00 [place] [facility] History SDOH 2022-12-20 2022-12-20 5 University o f Financial 00:00:00 00:00:00 [place] [facility] History SDWV Food 2022-12-20 2022-12-20 1 Univers ity of Worry 00:00:00 00:00:00 [place] [facility] History SDWV Food 2022-12-20 2022-12-20 1 Univers ity of Scarcity 00:00:00 00:00:00 [place] [facility] History SDWV 2022-12-20 2022-12-20 2 University o f Transport Med 00:00:00 00:00:00 [place] [facility] History SDWV 2022-12-20 2022-12-20 2 University o f Transport Non-Med 00:00:00 00:00:00 [place] M edical [facility] History SDWV 2022-12-20 2022-12-20 2 University o f Housing Unable to 00:00:00 00:00:00 [place] [facility] Pay Branch History SDWV 2022-12-20 2022-12-20 1 University o f Housing Places 00:00:00 00:00:00 [place] Medi demar Lived Branch History [facility] 2022-12-20 2022-12-20 2 University o f Housing Homeless 00:00:00 00:00:00 [place] [facility] dical Last Year Branch History [facility] 2022-12-20 2022-12-20 1 University o f Alcohol Frequency 00:00:00 00:00:00 [place] M edical [facility] Tobacco use and 2022-12-19 2022-12-19 Smokeless Universit y of exposure 00:00:00 00:00:00 tobacco non-user [place] Me dical Branch Exposure to 2022-11-26 2022-12-06 Not sure University of SARS-CoV-2 (event) 00:00:00 11:08:00 [place] [facility] History of Social 2022-10-27 2022-10-[address] function 00:00:00 00:00:00 Hospital Alcohol intake 2022-10-25 2022-10-25 Current [place] 00:00:00 00:00:00 non-drinker of Hospital alcohol (finding) Sex Ass[birth year] At [birth year] [facility] 00:00:00 00:00:00 Hospital Smoking Status Start Date Stop Date Source Never smoked tobacco [facility] Medical Branch Medications Ordered Filled [...] by ity of tablet 13:13: mouth in [place] [address] the Medical morning. Branch montelukast 2023-0 Yes 10mg Take 1 Univ ers 10 mg 6-08 tablet by ity of tablet 13:13: mouth in [place] [address] the Medical morning. Branch montelukast 2023-0 Yes 10mg Take 1 Univ ers 10 mg 6-08 tablet by ity of tablet 13:13: mouth in [place] [address] the Medical morning. Branch montelukast 2023-0 Yes 10mg Take 1 Univ ers 10 mg 6-08 tablet by ity of tablet 13:13: mouth in [place] [address] the Medical morning. Branch montelukast 2023-0 Yes 10mg Take 1 Univ ers 10 mg 6-08 tablet by ity of tablet 13:13: mouth in [place] [address] the Medical morning. Branch montelukast 2023-0 Yes 10mg Take 1 Univ ers 10 mg 6-08 tablet by ity of tablet 13:13: mouth in [place] [address] the Medical morning. Branch montelukast 2023-0 Yes 10mg Take 1 Univ ers 10 mg 6-08 tablet by ity of tablet 13:13: mouth in [place] [address] the Medical morning. Branch montelukast 2023-0 Yes 10mg Take 1 Univ ers 10 mg 6-08 tablet by ity of tablet 13:13: mouth in [place] [address] the Medical morning. Branch montelukast 2023-0 Yes 10mg Take 1 Univ ers 10 mg 6-08 tablet by ity of tablet 13:13: mouth in [place] [address] the Medical morning. Branch montelukast 2023-0 Yes 10mg Take 1 Univ ers 10 mg 6-08 tablet by ity of tablet 13:13: mouth in [place] [address] the Medical morning. Branch montelukast 2023-0 Yes 10mg Take 1 Univ ers 10 mg 6-08 tablet by ity of tablet 13:13: mouth in [place] [address] the Medical morning. Branch montelukast 2023-0 Yes 10mg Take 1 Univ ers 10 mg 6-08 tablet by ity of tablet 13:13: mouth in [place] [address] the Medical morning. Branch montelukast 2023-0 Yes 10mg Take 1 Univ ers 10 mg 6-08 tablet by ity of tablet 13:13: mouth in [place] [address] the Medical morning. Branch montelukast 2023-0 Yes 10mg Take 1 Univ ers 10 mg 6-08 tablet by ity of tablet 13:13: mouth in [place] [address] the Medical morning. Branch montelukast 2023-0 Yes 10mg Take 1 Univ ers 10 mg 6-08 tablet by ity of tablet 13:13: mouth in [place] [address] the Medical morning. Branch montelukast 2023-0 Yes 10mg Take 1 Univ ers 10 mg 6-08 tablet by ity of tablet 13:13: mouth in [place] [address] the Medical morning. Branch montelukast 2023-0 Yes 10mg Take 1 Univ ers 10 mg 6-08 tablet by ity of tablet 13:13: mouth in [place] [address] the Medical morning. Branch montelukast 2023-0 Yes 10mg Take 1 Univ ers 10 mg 6-08 tablet by ity of tablet 13:13: mouth in [place] [address] the Medical morning. Branch montelukast 2023-0 Yes 10mg Take 1 Univ ers 10 mg 6-08 tablet by ity of tablet 13:13: mouth in [place] [address] the Medical morning. Branch montelukast 2023-0 Yes 10mg Take 1 Univ ers 10 mg 6-08 tablet by ity of tablet 13:13: mouth in [place] [address] the Medical morning. Branch montelukast 2023-0 Yes 10mg Take 1 Univ ers 10 mg 6-08 tablet by ity of tablet 13:13: mouth in [place] [address] the Medical morning. Branch montelukast 2023-0 Yes 10mg Take 1 Univ ers 10 mg 6-08 tablet by ity of tablet 13:13: mouth in [place] [address] the Medical morning. Branch montelukast 2023-0 Yes 10mg Take 1 Univ ers 10 mg 6-08 tablet by ity of tablet 13:13: mouth in [place] [address] the Medical morning. Branch montelukast 2023-0 Yes 10mg Take 1 Univ ers 10 mg 6-08 tablet by ity of tablet 13:13: mouth in [place] [address] the Medical morning. Branch montelukast 2023-0 Yes 10mg Take 1 Univ ers 10 mg 6-08 tablet by ity of tablet 13:13: mouth in [place] [address] the Medical morning. Branch montelukast 2023-0 Yes 10mg Take 1 Univ ers 10 mg 6-08 tablet by ity of tablet 13:13: mouth in [place] [address] the Medical morning. Branch montelukast 2023-0 Yes 10mg Take 1 Univ ers 10 mg 6-08 tablet by ity of tablet 13:13: mouth in [place] [address] the Medical morning. Branch montelukast 2023-0 Yes 10mg Take 1 Univ ers 10 mg 6-08 tablet by ity of tablet 13:13: mouth in [place] [address] the Medical morning. Branch montelukast 2023-0 Yes 10mg Take 1 Univ ers 10 mg 6-08 tablet by ity of tablet 13:13: mouth in [place] [address] the Medical morning. Branch montelukast 2023-0 Yes 10mg Take 1 Univ ers 10 mg 6-08 tablet by ity of tablet 13:13: mouth in [place] [address] the Medical morning. Branch montelukast 2023-0 Yes 10mg Take 1 Univ ers 10 mg 6-08 tablet by ity of tablet 13:13: mouth in [place] [address] the Medical morning. Branch montelukast 3-0 Yes 10mg Take 1 Univ ers 10 mg 6-08 tablet by ity of tablet 13:13: mouth in [place] [address] the Medical morning. Branch vit 3-0 Yes [...] vit 202-0 Yes 2{capsu Take 2 Univers C/E/Zn/antividad 6-08 le} capsules ity of r/lutein/ze 13:13: [...] [place] mg 00 First dose Medical on [facility] 12/20/22 at 0900, Until Discontinu ed, Routine montelukast 2022-0 Yes 10mg 10 mg, Univ ers (SINGULAIR) 6-06 Oral, ity of tablet 10 14:00: DAILY, [place] mg 00 First dose Medical on [facility] 12/20/22 at 0900, Until Discontinu ed, Routine amLODIPine 2022-0 Yes 10mg 10 mg, Unive rs (NORVASC) 6-06 Oral, ity of tablet 10 14:00: DAILY, [place] mg 00 First dose Medical on [facility] 12/20/22 at 0900, Until Discontinu ed, Routine FLUoxetine 2022-0 Yes 10mg 10 mg, Unive rs (PROZAC) 6-06 Oral, ity of capsule 10 14:00: DAILY, [place] mg 00 First dose Medical on [facility] 12/20/22 at 0900, Until Discontinu ed, Routine montelukast 2022-0 Yes 10mg 10 mg, Univ ers (SINGULAIR) 6-06 Oral, ity of tablet 10 14:00: DAILY, [place] mg 00 First dose Medical on [facility] 12/20/22 at 0900, Until Discontinu ed, Routine amLODIPine 2023-0 Yes 10mg 10 mg, Unive rs (NORVASC) 6-06 Oral, ity of tablet 10 14:00: DAILY, [place] mg 00 First dose Medical on Mon12/20/22 at 0900, Until Discontinu ed, Routine levothyroxi 2022-0 Yes 75ug 75 mcg, Uni vers ne [...] Discontinu ed, Routine, Pain (scale 4-6) HYDROmorpho 3-0 Yes .5mg 0.5 mg, Uni vers ne 6- Slow IV ity of (DILAUDID) 01:11: Push, [place] injection 47 Q4HPRN, Medical 0.5 mg Starting Branch on Mon12/19/22 at 2011, Until Discontinu ed, Routine, Pain (scale 7-10)
U se approved by (Faculty): ADC PROVIDER HYDROmorpho 3-0 Yes .5mg 0.5 mg, Uni vers ne [...] mg 00 First dose Medical on [place] 12/19/22 at 1999, Until Discontinu ed, Routine hydrALAZINE 2022-0 Yes 50mg 50 mg, Univ ers (APRESOLINE 6-06 Oral, BID, it y of ) tablet 50 01:00: First dose [place] mg 00 on [facility] 12/19/22 at Branch 1999, Until Discontinu ed, Routine docusate 2022-0 Yes 100mg 100 mg, Unive rs (COLACE) 6-06 Oral, ity of capsule 100 01:00: Q12H, [place] mg 00 First dose Medical on Mon Branch 12/19/22 at 1999, Until Discontinu ed, Routine hydrALAZINE 2022-0 Yes 50mg 50 mg, Univ ers (APRESOLINE 6-06 Oral, BID, it y of ) tablet 50 01:00: First dose [place] mg 00 on [facility] 12/19/22 at Branch 1999, Until Discontinu ed, Routine atorvastati 3-0 Yes 20mg 20 mg, Univ ers n (LIPITOR) 6-05 Oral, QPM, it y of tablet 20 22:00: First dose [place] mg 00 on [facility] 12/19/22 at Branch 1700, Until Discontinu ed, Routine atorvastati 2023-0 Yes 20mg 20 mg, Univ ers n (LIPITOR) 6-05 Oral, QPM, it y of tablet 20 22:00: [place] mg 00 on [facility] 12/19/22 at Branch 1700, Until Discontinu ed, [...] Asael as 03 Starting Medical on Mon [place] 12/19/22 at 1345, Until Discontinu ed, Routine, tremor benztropine 2022-0 Yes 1mg 1 mg, Unive rs (COGENTIN) 12-19 Oral, ity of tablet 1 mg 18:45: BIDPRN, Asael as 03 Starting Medical on Mon [place] 12/19/22 at 1345, Until Discontinu ed, Routine, [...] Branch Until Mon12/19/22 at 1240, Intra-op sodium 2022-0 2022- No 30mL 30 mL, Univers citrate-cit 12-19 Oral, ONCE i ty of thelma acid 15:00: 14:09 NOW, [address] [place] [address] (BICITRA) 00 :00 dose, On Medica l [...] oxyCODONE-a 2022- No 2{tbl} Uni vers cetaminophe 12-19-05 ity of n 05:00: 16:59 [place] (PERCOCET) [...] tranexamic 2022- No 1000mg Univ ers acid 12-19-05 ity of (CYKLOKAPRO 05:00: 16:59 [place] N) 1,000 mg 00 :00 Medical in [facility] Branch 0.9% (NS) 250 mL piggyback aspirin 325 2022-0 3- No [id number] 325mg Take 1 Univers mg tablet 12-19-04 tablet by ity of 00:00: 04:59 mouth in [place] 00 :00 [facility] and 1 tablet in the evening. Take with meals. Do all this for 28 days. aspirin 325 2022-0 3- No [id number] 325mg Take 1 Univers mg tablet 12-19- tablet by ity of 00:00: 04:59 mouth in [place] 00 :00 [facility] and 1 tablet in the evening. Take with meals. Do all this for 28 days. aspirin 325 2022-0 3- No [id number] 325mg Take 1 Univers mg tablet 12-19- tablet by ity of 00:00: 04:59 mouth in [place] 00 :00 [facility] and 1 tablet in the evening. Take with meals. Do all this for 28 days. aspirin 325 2022-0 3- No [id number] 325mg Take 1 Univers mg tablet 12-19- tablet by ity of 00:00: 04:59 mouth in [place] 00 :00 [facility] and 1 tablet in the evening. Take with meals. Do all this for 28 days. aspirin 325 2022-0 3- No [id number] 325mg Take 1 Univers mg tablet 12-19- tablet by ity of 00:00: 04:59 mouth in [place] 00 :00 [facility] and 1 tablet in the evening. Take with meals. Do all this for 28 days. aspirin 325 3-0 3- No [id number] 325mg Take 1 Univers mg tablet 12-19-04 tablet by ity of 00:00: 04:59 mouth in [place] 00 :00 [facility] and 1 tablet in the evening. Take with meals. Do all this for 28 days. aspirin 325 3-0 3- No [id number] 325mg Take 1 Univers mg tablet 12-19- tablet by ity of 00:00: 04:59 mouth in [place] 00 :00 the Medical morning Branch and 1 tablet in the evening. Take with meals. Do all this for 28 days. aspirin 325 2022-0 2022- No [id number] 325mg Take 1 Univers mg tablet 6-11 20-04 tablet by ity of 00:00: 04:59 mouth in [place] 00 :00 the Medical morning Branch and 1 tablet in the evening. Take with meals. Do all this for 28 days. aspirin 325 2022-0 2022- No [id number] 325mg Take 1 Univers mg tablet -11 20-04 tablet by ity of 00:00: 04:59 mouth in [place] 00 :00 the Medical morning Branch and 1 tablet in the evening. Take with meals. Do all this for 28 days. aspirin 325 2022-0 2022- No [id number] 325mg Take 1 Univers mg tablet -11 20- tablet by ity of 00:00: 04:59 mouth in [place] 00 :00 the Medical morning Branch and 1 tablet in the evening. Take with meals. Do all this for 28 days. aspirin 325 2022-0 2022- No [id number] 325mg Take 1 Univers mg tablet 12-19- tablet by ity of 00:00: 04:59 mouth in [place] 00 :00 the Medical morning Branch and 1 tablet in the evening. Take with meals. Do all this for 28 days. aspirin 325 2022-0 2022- No [id number] 325mg Take 1 Univers mg tablet 12-19- tablet by ity of 00:00: 04:59 mouth in [place] 00 :00 the Medical morning Branch and 1 tablet in the evening. Take with meals. Do all this for 28 days. aspirin 325 2022-0 2022- No [id number] 325mg Take 1 Univers mg tablet 12-19-04 tablet by ity of 00:00: 04:59 mouth in [place] 00 :00 the Medical morning Branch and 1 tablet in the evening. Take with meals. Do all this for 28 days. aspirin 325 3-0 2022- No [id number] 325mg Take 1 Univers mg tablet -11 20-04 tablet by ity of 00:00: 04:59 mouth in [place] 00 :00 the Medical morning Branch and 1 tablet in the evening. Take with meals. Do all this for 28 days. aspirin 325 3-0 2022- No [id number] 325mg Take 1 Univers mg tablet 6-11 20-04 tablet by ity of 00:00: 04:59 mouth in [place] 00 :00 the Medical morning Branch and 1 tablet in the evening. Take with meals. Do all this for 28 days. aspirin 325 2022-0 3- No [id number] 325mg Take 1 Univers mg tablet 12-19-04 tablet by ity of 00:00: 04:59 mouth in [place] 00 :00 the Medical morning Branch and 1 tablet in the evening. Take with meals. Do all this for 28 days. aspirin 325 2022-0 2022- No [id number] 325mg Take 1 Univers mg tablet 12-19- tablet by ity of 00:00: 04:59 mouth in [place] 00 :00 the Medical morning Branch and 1 tablet in the evening. Take with meals. Do all this for 28 days. aspirin 325 2022-0 2022- No [id number] 325mg Take 1 Univers mg tablet 12-19- tablet by ity of 00:00: 04:59 mouth in [place] 00 :00 the [facility] morning Branch and 1 tablet in the evening. Take with meals. Do all this for 28 days. aspirin 325 2022-0 2022- No [id number] 325mg Take 1 Univers mg tablet 12-19- tablet by ity of 00:00: 04:59 mouth in [place] 00 :00 the [facility] morning Branch and 1 tablet in the evening. Take with meals. Do all this for 28 days. aspirin 325 2022-0 2022- No [id number] 325mg Take 1 Univers mg tablet 12-19- tablet by ity of 00:00: 04:59 mouth in [place] 00 :00 the [facility] morning Branch and 1 tablet in the evening. Take with meals. Do all this for 28 days. aspirin 325 2022-0 3- No [id number] 325mg Take 1 Univers mg tablet 12-19- tablet by ity of 00:00: 04:59 mouth in [place] 00 :00 the Medical morning Branch and 1 tablet in the evening. Take with meals. Do all this for 28 days. aspirin 325 2022-0 3- No [id number] 325mg Take 1 Univers mg tablet 12-19-04 tablet by ity of 00:00: 04:59 mouth in [place] 00 :00 the Medical morning Branch and 1 tablet in the evening. Take with meals. Do all this for 28 days. aspirin 325 3-0 2022- No [id number] 325mg Take 1 Univers mg tablet -11 20-04 tablet by ity of 00:00: 04:59 mouth in [place] 00 :00 the Medical morning Branch and 1 tablet in the evening. Take with meals. Do all this for 28 days. aspirin 325 3-0 3- No [id number] 325mg Take 1 Univers mg tablet 12-19-04 tablet by ity of 00:00: 04:59 mouth in [place] 00 :00 the [facility] morning Branch and 1 tablet in the evening. Take with meals. Do all this for 28 days. aspirin 325 3-0 3- No [id number] 325mg Take 1 Univers mg tablet 12-19- tablet by ity of 00:00: 04:59 mouth in [place] 00 :00 the [facility] morning Branch and 1 tablet in the evening. Take with meals. Do all this for 28 days. aspirin 325 2022-0 2022- No [id number] 325mg Take 1 Univers mg tablet 12-19- tablet by ity of 00:00: 04:59 mouth in [place] 00 :00 the [facility] morning Branch and 1 tablet in the [...] by ity of tablet 11:04: mouth in [place] [address] the Medical morning. [place] montelukast 0 Yes 10mg Take 1 Univ ers 10 mg 5-23 tablet by ity of tablet 11:04: mouth in [place] [address] the Medical morning. Branch montelukast 0 Yes 10mg Take 1 Univ ers 10 mg 5-23 tablet by ity of tablet 11:04: mouth in [place] [address] the Medical morning. [place] montelukast 0 Yes 10mg Take 1 Univ ers 10 mg 5-23 tablet by ity of tablet 11:04: mouth in [place] [address] the Medical morning. Branch montelukast 0 Yes 10mg Take 1 Univ ers 10 mg 5-23 tablet by ity of tablet 11:04: mouth in [place] [address] the Medical morning. Branch vit 2022-0 Yes [...] of 50 mg daily tc 2022- No [id number] 38.9mCi 38.9 Univ ers 99m-tetrofo 11-22 millicurie i ty of smin 16:45: 16:40 , [place] (MYOVIEW) 00 :00 Intravenou Medi demar injection s, ONCE, 1 Bran ch 38.9 dose, On millicurie Mon11/22/22 at 1145, Routine regadenoson 2022- No [id number] .4mg 0.4 mg, IV Univers (LEXISCAN) 11-22 Push, ity of injection 15:00: 16:34 ONCE, 1 [place] 0.4 mg 00 :00 dose, On Medical Mon11/22/22 Branch at 1000, Routine
maintenance team member approving Restricted medication : [place] tc 2022-0 3- No [id number] 15.3mCi 15.3 [facility] ers 99m-tetrofo 11-22 millicurie i ty [...] Medical nebulizer Branch solution diclofenac 2023-0 Yes [id number] 75mg Take 1 Univers 75 mg EC 4-21 9109 tablet by ity of tablet 00:00: mouth in [place] [address] the [facility] morning [place] and 1 tablet in the evening. Take with meals. diclofenac 2023-0 Yes [id number] 75mg Take 1 Univers 75 mg EC 4-21 9109 tablet by ity of tablet 00:00: mouth in [address] morning [place] and 1 tablet in the evening. Take with meals. diclofenac 2023-0 Yes [id number] 75mg Take 1 Univers 75 mg EC 4-21 9109 tablet by ity of tablet 00:00: mouth in [place] [address] [facility] morning [place] and 1 tablet in the evening. Take with meals. diclofenac 2023-0 Yes [id number] 75mg Take 1 Univers 75 mg EC 4-21 9109 tablet by ity of tablet 00:00: mouth in [address] morning [place] and 1 tablet in the evening. Take with meals. diclofenac 2023-0 Yes [id number] 75mg Take 1 Univers 75 mg EC 4-21 9109 tablet by ity of tablet 00:00: mouth in [address] morning [place] and 1 tablet in the evening. Take with meals. diclofenac 2023-0 Yes [id number] 75mg Take 1 Univers 75 mg EC 4-21 9109 tablet by ity of tablet 00:00: mouth in [place] [address] [facility] morning [place] and 1 tablet in the evening. Take with meals. diclofenac 2023-0 Yes [id number] 75mg Take 1 Univers 75 mg EC 4-21 9109 tablet by ity of tablet 00:00: mouth in [place] [address] [facility] morning [place] and 1 tablet in the evening. Take with meals. diclofenac 2023-0 Yes [id number] 75mg Take 1 Univers 75 mg EC 4-21 9109 tablet by ity of tablet 00:00: mouth in [address] morning [place] and 1 tablet in the evening. Take with meals. diclofenac 2023-0 Yes [id number] 75mg Take 1 Univers 75 mg EC 4-21 9109 tablet by ity of tablet 00:00: mouth in [address] morning [place] and 1 tablet in the evening. Take with meals. diclofenac 2023-0 Yes [id number] 75mg Take 1 Univers 75 mg EC 4-21 9109 tablet by ity of tablet 00:00: mouth in [address] and 1 tablet in the evening. Take with meals. diclofenac 2023-0 Yes [id number] 75mg Take 1 Univers 75 mg EC 4-21 9109 tablet by ity of tablet 00:00: mouth in [address] morning [place] and 1 tablet in the evening. Take with meals. diclofenac 2023-0 Yes [id number] 75mg Take 1 Univers 75 mg EC 4-21 9109 tablet by ity of tablet 00:00: mouth in [address] morning [place] and 1 tablet in the evening. Take with meals. diclofenac 2023-0 Yes [id number] 75mg Take 1 Univers 75 mg EC 4-21 9109 tablet by ity of tablet 00:00: mouth in [address] morning [place] and 1 tablet in the evening. Take with meals. diclofenac 2023-0 Yes [id number] 75mg Take 1 Univers 75 mg EC 4-21 9109 tablet by ity of tablet 00:00: mouth in [address] morning [place] and 1 tablet in the evening. Take with meals. diclofenac 2023-0 Yes [id number] 75mg Take 1 Univers 75 mg EC 4-21 9109 tablet by ity of tablet 00:00: mouth in [address] morning [place] and 1 tablet in the evening. Take with meals. diclofenac 2023-0 Yes [id number] 75mg Take 1 Univers 75 mg EC 4-21 9109 tablet by ity of tablet 00:00: mouth in [address] morning [place] and 1 tablet in the evening. Take with meals. diclofenac 2023-0 Yes [id number] 75mg Take 1 Univers 75 mg EC 4-21 9109 tablet by ity of tablet 00:00: mouth in [address] morning [place] and 1 tablet in the evening. Take with meals. diclofenac 2023-0 Yes [id number] 75mg Take 1 Univers 75 mg EC 4-21 9109 tablet by ity of tablet 00:00: mouth in [address] morning [place] and 1 tablet in the evening. Take with meals. diclofenac 2023-0 Yes [id number] 75mg Take 1 Univers 75 mg EC 4-21 9109 tablet by ity of tablet 00:00: mouth in [address] and 1 tablet in the evening. Take with meals. diclofenac 2023-0 Yes [id number] 75mg Take 1 Univers 75 mg EC 4-21 9109 tablet by ity of tablet 00:00: mouth in [address] and 1 tablet in the evening. Take with meals. diclofenac 2023-0 Yes [id number] 75mg Take 1 Univers 75 mg EC 4-21 9109 tablet by ity of tablet 00:00: mouth in [address] and 1 tablet in the evening. Take with meals. diclofenac 2023-0 Yes [id number] 75mg Take 1 Univers 75 mg EC 4-21 9109 tablet by ity of tablet 00:00: mouth in [address] and 1 tablet in the evening. Take with meals. diclofenac 2023-0 Yes [id number] 75mg Take 1 Univers 75 mg EC 4-21 9109 tablet by ity of tablet 00:00: mouth in [address] and 1 tablet in the evening. Take with meals. diclofenac 2023-0 Yes [id number] 75mg Take 1 Univers 75 mg EC 4-21 9109 tablet by ity of tablet 00:00: mouth in [address] and 1 tablet in the evening. Take with meals. diclofenac 2023-0 Yes [id number] 75mg Take 1 Univers 75 mg EC 4-21 9109 tablet by ity of tablet 00:00: mouth in [address] morning [place] and 1 tablet in the evening. Take with meals. diclofenac 2023-0 Yes [id number] 75mg Take 1 [facility] 75 mg EC 4-21 9109 tablet by ity of tablet 00:00: mouth in [place] [address] [facility] morning Blanco and 1 tablet in the evening. Take with meals. diclofenac 2023-0 Yes [id number] 75mg Take 1 [facility] 75 mg EC 4-21 9109 tablet by ity of tablet 00:00: mouth in [address] morning Blanco and 1 tablet in the evening. Take with meals. diclofenac 2023-0 Yes [id number] 75mg Take 1 [facility] 75 mg EC 4-21 9109 tablet by ity of tablet 00:00: mouth in [address] and 1 tablet in the evening. Take with meals. diclofenac 2023-0 Yes [id number] 75mg Take 1 [facility] 75 mg EC 4-21 9109 tablet by ity of tablet 00:00: mouth in [address] and 1 tablet in the evening. Take with meals. diclofenac 2023-0 Yes [id number] 75mg Take 1 [facility] 75 mg EC 4-21 9109 tablet by ity of tablet 00:00: mouth in [address] and 1 tablet in the evening. Take with meals. diclofenac 2023-0 Yes [id number] 75mg Take 1 [facility] 75 mg EC 4-21 9109 tablet by ity of tablet 00:00: mouth in [address] morning Blanco and 1 tablet in the evening. Take with meals. diclofenac 2023-0 Yes [id number] 75mg Take 1 [facility] 75 mg EC 4-21 9109 tablet by ity of tablet 00:00: mouth in [address] and 1 tablet in the evening. Take with meals. diclofenac 2023-0 Yes [id number] 75mg Take 1 [facility] 75 mg EC 4-21 9109 tablet by ity of tablet 00:00: mouth in [address] and 1 tablet in the evening. Take with meals. diclofenac 2023-0 Yes [id number] 75mg Take 1 [facility] 75 mg EC 4-21 9109 tablet by ity of tablet 00:00: mouth in [address] and 1 tablet in the evening. Take with meals. diclofenac 2023-0 Yes [id number] 75mg Take 1 [facility] 75 mg EC 4-21 9109 tablet by ity of tablet 00:00: mouth in [address] morning Blanco and 1 tablet in the evening. Take with meals. diclofenac 2023-0 Yes [id number] 75mg Take 1 [facility] 75 mg EC 4-21 9109 tablet by ity of tablet 00:00: mouth in [address] morning Blanco and 1 tablet in the evening. Take with meals. diclofenac 2023-0 Yes [id number] 75mg Take 1 [facility] 75 mg EC 4-21 9109 tablet by ity of tablet 00:00: mouth in [address] morning Blanco and 1 tablet in the evening. Take with meals. diclofenac 2023-0 Yes [id number] 75mg Take 1 [facility] 75 mg EC 4-21 9109 tablet by ity of tablet 00:00: mouth in [address] and 1 tablet in the evening. Take with meals. diclofenac 2023-0 Yes [id number] 75mg Take 1 [facility] 75 mg EC 4-21 9109 tablet by ity of tablet 00:00: mouth in [address] and 1 tablet in the evening. Take with meals. diclofenac 2023-0 Yes [id number] 75mg Take 1 [facility] 75 mg EC 4-21 9109 tablet by ity of tablet 00:00: mouth in [address] and 1 tablet in the evening. Take with meals. diclofenac 2023-0 Yes [id number] 75mg Take 1 [facility] 75 mg EC 4-21 9109 tablet by ity of tablet 00:00: mouth in [address] and 1 tablet in the evening. Take with meals. diclofenac 2023-0 Yes [id number] 75mg Take 1 [facility] 75 mg EC 4-21 9109 tablet by ity of tablet 00:00: mouth in [address] and 1 tablet in the evening. Take with meals. diclofenac 2023-0 Yes [id number] 75mg Take 1 [facility] 75 mg EC 4-21 9109 tablet by ity of tablet 00:00: mouth in [address] and 1 tablet in the evening. Take with meals. diclofenac 2023-0 Yes [id number] 75mg Take 1 [facility] 75 mg EC 4-21 9109 tablet by ity of tablet 00:00: mouth in [address] morning Blanco and 1 tablet in the evening. Take with meals. diclofenac 2023-0 Yes [id number] 75mg Take 1 [facility] 75 mg EC 4-21 9109 tablet by ity of tablet 00:00: mouth in [address] morning Blanco and 1 tablet in the evening. Take with meals. diclofenac 2023-0 Yes [id number] 75mg Take 1 [facility] 75 mg EC 4-21 9109 tablet by ity of tablet 00:00: mouth in [address] morning Blanco and 1 tablet in the evening. Take with meals. diclofenac 2023-0 Yes [id number] 75mg Take 1 [facility] 75 mg EC 4-21 9109 tablet by ity of tablet 00:00: mouth in [address] and 1 tablet in the evening. Take with meals. diclofenac 2023-0 Yes [id number] 75mg Take 1 [facility] 75 mg EC 4-21 9109 tablet by ity of tablet 00:00: mouth in [address] and 1 tablet in the evening. Take with meals. diclofenac 2023-0 Yes [id number] 75mg Take 1 [facility] 75 mg EC 4-21 9109 tablet by ity of tablet 00:00: mouth in [address] and 1 tablet in the evening. Take with meals. diclofenac 2023-0 Yes [id number] 75mg Take 1 [facility] 75 mg EC 4-21 9109 tablet by ity of tablet 00:00: mouth in [address] and 1 tablet in the evening. Take with meals. diclofenac 2023-0 Yes [id number] 75mg Take 1 [facility] 75 mg EC 4-21 9109 tablet by ity of tablet 00:00: mouth in [address] and 1 tablet in the evening. Take with meals. diclofenac 2023-0 Yes [id number] 75mg Take 1 [facility] 75 mg EC 4-21 9109 tablet by ity of tablet 00:00: mouth in [address] and 1 tablet in the evening. Take with meals. diclofenac 2023-0 Yes [id number] 75mg Take 1 [facility] 75 mg EC 4-21 9109 tablet by ity of tablet 00:00: mouth in [address] and 1 tablet in the evening. Take with meals. diclofenac 2023-0 Yes [id number] 75mg Take 1 [facility] 75 mg EC 4-21 9109 tablet by ity of tablet 00:00: mouth in [place] [address] [facility] morning Blanco and 1 tablet in the evening. Take with meals. diclofenac 2023-0 Yes [id number] 75mg Take 1 [facility] 75 mg EC 4-21 9109 tablet by ity of tablet 00:00: mouth in [place] [address] [facility] morning Blanco and 1 tablet in the evening. Take with meals. diclofenac 2023-0 Yes [id number] 75mg Take 1 [facility] 75 mg EC 4-21 9109 tablet by ity of tablet 00:00: mouth in [place] [address] [facility] morning Blanco and 1 tablet in the evening. Take with meals. diclofenac 2023-0 Yes [id number] 75mg Take 1 [facility] 75 mg EC 4-21 9109 tablet by ity of tablet 00:00: mouth in [place] [address] [facility] morning Blanco and 1 tablet in the evening. Take [...] 2 (two) solution times a day. fexofenadin 2022-0 2022- No 60mg QD Take [...] 13:08: daily. [facility] benzonatate 2023-0 2023- No 200mg Q6H Take 1 [facility] ([facility]) 4-13 05-[address] 200 MG 00:00: 04:59 (200 mg [facility] capsule 00 :00 total) by l mouth every 6 (six) hours as needed for cough for up to 30 days. benzonatate 2023-0 2023- No 200mg Q6H Take 1 [facility] ([facility]ESSAL[facility]) 4-13 05-[address] 200 MG 00:00: 04:59 (200 mg [facility] capsule 00 :00 total) by l mouth every 6 (six) hours as needed for cough for up to 30 days. benzonatate 2023-0 2023- No 200mg Q6H Take 1 [facility] (TESSALON) 4-13 05-[address] 200 MG 00:00: 04:59 (200 mg [facility] capsule 00 :00 total) by l mouth every 6 (six) hours as needed for cough for up to 30 days. benzonatate 2023-0 2023- No 200mg Q6H Take 1 [facility] ([facility]ESSAL[facility]) 413 -[address] 200 MG 00:00: 04:59 (200 mg [facility] capsule 00 :00 total) by l mouth every 6 (six) hours as needed for cough for up to 30 days. amoxicillin 3-0 2023- No 500mg Q.5D Take 1 [facility] -pot 10-27-[address] clavulanate 00:00: 04:59 (500 mg [facility] (Augmentin) 00 :00 total) by l 500-125 mg mouth 2 per tablet (two) times a day for 7 days. amoxicillin 2023-0 2023- No 500mg Q.5D Take 1 [facility] -pot 10-[address] clavulanate 00:00: 04:59 (500 mg [facility] (Augmentin) 00 :00 total) by l 500-125 mg mouth 2 per tablet (two) times a day for 7 days. amoxicillin 2023-0 2023- No 500mg Q.5D Take 1 [facility] -pot 4-[address] clavulanate 00:00: 04:59 (500 mg [facility] (Augmentin) 00 :00 total) by l 500-125 mg mouth 2 per tablet (two) times a day for 7 days. amoxicillin 2023-0 2023- No 500mg Q.5D Take 1 [facility] -[facility] 4-[address] clavulanate 00:00: 04:59 (500 mg [facility] (Augmentin) 00 :00 total) by l 500-125 mg mouth 2 per tablet (two) times a day for 7 days. [facility] Yes 1{puff} Inhale 1 Uni vers AEROSPHERE 3-28 Puff in ity of 160-9-4.8 00:00: the [place] mcg/actuati morning. Medi demar on [facility] Yes 1{puff} Inhale 1 Uni vers AEROSPHERE 3-28 Puff in ity of 160-9-4.8 00:00: the [place] mcg/actuati morning. Medi demar on [facility] Yes 1{puff} Inhale 1 Uni vers AEROSPHERE 3-28 Puff in ity of 160-9-4.8 00:00: the [place] mcg/actuati morning. Medi demar on [facility] Yes 1{puff} Inhale 1 Uni vers AEROSPHERE 3-28 Puff in ity of 160-9-4.8 00:00: the [place] mcg/actuati morning. Medi demar on [facility] Yes 1{puff} Inhale 1 Uni vers AEROSPHERE 3-28 Puff in ity of 160-9-4.8 00:00: the [place] mcg/actuati morning. Medi demar on [facility] Yes 1{puff} Inhale 1 Uni vers AEROSPHERE 3-28 Puff in ity of 160-9-4.8 00:00: the [place] mcg/actuati morning. Medi demar on [facility] Yes 1{puff} Inhale 1 Uni vers AEROSPHERE 3-28 Puff in ity of 160-9-4.8 00:00: the [place] mcg/actuati morning. Medi demar on [facility] Yes 1{puff} Inhale 1 Uni vers AEROSPHERE 3-28 Puff in ity of 160-9-4.8 00:00: the [place] mcg/actuati morning. Medi demar on [facility] Yes 1{puff} Inhale 1 Uni vers AEROSPHERE 3-28 Puff in ity of 160-9-4.8 00:00: the [place] mcg/actuati 00 morning. Medi demar on [facility] Yes 1{puff} Inhale 1 Uni vers AEROSPHERE 3-28 Puff in ity of 160-9-4.8 00:00: the [place] mcg/actuati 00 morning. Medi demar on [facility] Yes 1{puff} Inhale 1 Uni vers AEROSPHERE 3-28 Puff in ity of 160-9-4.8 00:00: the [place] mcg/actuati morning. Medi demar on [facility] Yes 1{puff} Inhale 1 Uni vers AEROSPHERE 3-28 Puff in ity of 160-9-4.8 00:00: the [place] mcg/actuati morning. Medi demar on [facility] Yes 1{puff} Inhale 1 Uni vers AEROSPHERE 3-28 Puff in ity of 160-9-4.8 00:00: the [place] mcg/actuati morning. Medi demar on [facility] Yes 1{puff} Inhale 1 Uni vers AEROSPHERE 3-28 Puff in ity of 160-9-4.8 00:00: the [place] mcg/actuati morning. Medi demar on [facility] Yes 1{puff} Inhale 1 Uni vers AEROSPHERE 3-28 Puff in ity of 160-9-4.8 00:00: the [place] mcg/actuati morning. Medi demar on [facility] Yes 1{puff} Inhale 1 Uni vers AEROSPHERE 3-28 Puff in ity of 160-9-4.8 00:00: the [place] mcg/actuati morning. Medi demar on [facility] Yes 1{puff} Inhale 1 Uni vers AEROSPHERE 3-28 Puff in ity of 160-9-4.8 00:00: the [place] mcg/actuati morning. Medi demar on [facility] 2023-0 Yes 1{puff} Inhale 1 Uni vers AEROSPHERE 3-28 Puff in ity of 160-9-4.8 00:00: the [place] mcg/actuati 00 morning. Medi demar on [facility] Branch [facility] Yes 1{puff} Inhale 1 Uni vers AEROSPHERE 3-28 Puff in ity of 160-9-4.8 00:00: the [place] mcg/actuati 00 morning. Medi demar on [facility] Yes 1{puff} Inhale 1 Uni vers AEROSPHERE 3-28 Puff in ity of 160-9-4.8 00:00: the [place] mcg/actuati 00 morning. Medi demar on [facility] Branch [facility] Yes 1{puff} Inhale 1 Uni vers AEROSPHERE 3-28 Puff in ity of 160-9-4.8 00:00: the [place] mcg/actuati morning. Medi demar on [facility] Yes 1{puff} Inhale 1 Uni vers AEROSPHERE 3-28 Puff in ity of 160-9-4.8 00:00: the [place] mcg/actuati morning. Medi demar on [facility] Yes 1{puff} Inhale 1 Uni vers AEROSPHERE 3-28 Puff in ity of 160-9-4.8 00:00: the [place] mcg/actuati morning. Medi demar on [facility] Yes 1{puff} Inhale 1 Uni vers AEROSPHERE 3-28 Puff in ity of 160-9-4.8 00:00: the [place] mcg/actuati morning. Medi demar on [facility] Yes 1{puff} Inhale 1 Uni vers AEROSPHERE 3-28 Puff in ity of 160-9-4.8 00:00: the [place] mcg/actuati 00 morning. Medi demar on [facility] Yes 1{puff} Inhale 1 Uni vers AEROSPHERE 3-28 Puff in ity of 160-9-4.8 00:00: the [place] mcg/actuati morning. Medi demar on [facility] Yes 1{puff} Inhale 1 Uni vers AEROSPHERE 3-28 Puff in ity of 160-9-4.8 00:00: the [place] mcg/actuati morning. Medi demar on [facility] Yes 1{puff} Inhale 1 Uni vers AEROSPHERE 3-28 Puff in ity of 160-9-4.8 00:00: the [place] mcg/actuati morning. Medi demar on [facility] Yes 1{puff} Inhale 1 Uni vers AEROSPHERE 3-28 Puff in ity of 160-9-4.8 00:00: the [place] mcg/actuati morning. Medi demar on [facility] Yes 1{puff} Inhale 1 Uni vers AEROSPHERE 3-28 Puff in ity of 160-9-4.8 00:00: the [place] mcg/actuati morning. Medi demar on [facility] Yes 1{puff} Inhale 1 Uni vers AEROSPHERE 3-28 Puff in ity of 160-9-4.8 00:00: the [place] mcg/actuati morning. Medi demar on [facility] Yes 1{puff} Inhale 1 Uni vers AEROSPHERE 3-28 Puff in ity of 160-9-4.8 00:00: the [place] mcg/actuati morning. Medi demar on [facility] Yes 1{puff} Inhale 1 Uni vers AEROSPHERE 3-28 Puff in ity of 160-9-4.8 00:00: the [place] mcg/actuati morning. Medi demar on [facility] Yes 1{puff} Inhale 1 Uni vers AEROSPHERE 3-28 Puff in ity of 160-9-4.8 00:00: the [place] mcg/actuati morning. Medi demar on [facility] Yes 1{puff} Inhale 1 Uni vers AEROSPHERE 3-28 Puff in ity of 160-9-4.8 00:00: the [place] mcg/actuati morning. Medi demar on [facility] Yes 1{puff} Inhale 1 Uni vers AEROSPHERE 3-28 Puff in ity of 160-9-4.8 00:00: the [place] mcg/actuati 00 morning. Medi demar on [facility] Yes 1{puff} Inhale 1 Uni vers AEROSPHERE 3-28 Puff in ity of 160-9-4.8 00:00: the [place] mcg/actuati 00 morning. Medi demar on [facility] Yes 1{puff} Inhale 1 Uni vers AEROSPHERE 3-28 Puff in ity of 160-9-4.8 00:00: the [place] mcg/actuati 00 morning. Medi demar on [facility] Yes 1{puff} Inhale 1 Uni vers AEROSPHERE 3-28 Puff in ity of 160-9-4.8 00:00: the [place] mcg/actuati 00 morning. Medi demar on [facility] Yes 1{puff} Inhale 1 Uni vers AEROSPHERE 3-28 Puff in ity of 160-9-4.8 00:00: the [place] mcg/actuati 00 morning. Medi demar on [facility] Yes 1{puff} Inhale 1 Uni vers AEROSPHERE 3-28 Puff in ity of 160-9-4.8 00:00: the [place] mcg/actuati 00 morning. Medi demar on [facility] meloxicam 2021-07 No 15mg Q24H Take 1 Metho di (Mobic) 15 0-14 04-11 tablet (15 st mg tablet 00:00: 00:00 mg total) [facility] 00 :00 by mouth l daily as needed (INFLAMMAT ION). meloxicam 2021-07 No 15mg Q24H Take 1 Metho di (Mobic) 15 0-14 04-11 tablet (15 st mg tablet 00:00: 00:00 mg total) [facility] 00 :00 by mouth l daily as needed (INFLAMMAT ION). meloxicam 2021-07 No 15mg Q24H Take 1 Metho di [...] l daily as needed (INFLAMMAT ION). sodium 2021-2021- No [id number] 30mg Uni vers hyaluronate 03-11 9109 ity of (viscosup) 14:45: 14:31 [place] (ORTHOVISC) 00 :00 Medical injection Branch 30 mg sodium 2021-0 2021- No [id number] 30mg 30 mg, U nivers hyaluronate 03-11 9109 Intra-riley i ty of (viscosup) 14:45: 14:31 [facility] bradya [facility] (ORTHOVISC) 00 :00 ONCE, 1 Medic al injection dose, On Branch 30 mg Mon03/11/22 at 0945, Routine sodium 2021-2021- No [id number] 30mg Uni vers hyaluronate 03-11 9109 ity of (viscosup) 14:45: 14:31 [place] (ORTHOVISC) 00 :00 Medical injection Branch 30 mg sodium 2021-0 2021- No [id number] 30mg 30 mg, U nivers hyaluronate 03-11 9109 Intra-riley i ty of (viscosup) 14:45: 14:31 culRichard brady s (ORTHOVISC) 00 :00 ONCE, 1 Medic al injection dose, On Branch 30 mg Mon03/11/22 at 0945, Routine benzonatate 2021-0 Yes [id number] 100mg Take 1 [facility] 100 mg 2-21 capsule by ity of capsule 00:00: mouth 3 [place] 00 (three) Medical times Branch daily as needed for Cough. benzonatate 202-0 Yes [id number] 100mg Take 1 [facility] 100 mg 2-21 capsule by ity of capsule 00:00: mouth 3 [place] 00 (three) Medical times Branch daily as needed for Cough. benzonatate 2022-0 Yes [id number] 100mg Take 1 [facility] 100 mg 2-21 capsule by ity of capsule 00:00: mouth (three) Medical times Branch daily as needed for Cough. benzonatate 2022-0 Yes [id number] 100mg Take 1 [facility] 100 mg 2-21 capsule by ity of capsule 00:00: mouth (three) Medical times Branch daily as needed for Cough. benzonatate 2022-0 Yes [id number] 100mg Take 1 [facility] 100 mg 2-21 capsule by ity of capsule 00:00: mouth (three) Medical times Branch daily as needed for Cough. benzonatate 2022-0 Yes [id number] 100mg Take 1 [facility] 100 mg 2-21 capsule by ity of capsule 00:00: mouth (three) Medical times Branch daily as needed for Cough. benzonatate 2022-0 Yes [id number] 100mg Take 1 [facility] 100 mg 2-21 capsule by ity of capsule 00:00: mouth (three) Medical times Branch daily as needed for Cough. benzonatate 2022-0 Yes [id number] 100mg Take 1 [facility] 100 mg 2-21 capsule by ity of capsule 00:00: mouth (three) Medical times Branch daily as needed for Cough. benzonatate 2022-0 Yes [id number] 100mg Take 1 [facility] 100 mg 2-21 capsule by ity of capsule 00:00: mouth (three) Medical times Branch daily as needed for Cough. benzonatate 2022-0 Yes [id number] 100mg Take 1 [facility] 100 mg 2-21 capsule by ity of capsule 00:00: mouth (three) Medical times Branch daily as needed for Cough. benzonatate 2022-0 Yes [id number] 100mg Take 1 [facility] 100 mg 2-21 capsule by ity of capsule 00:00: mouth (three) Medical times Branch daily as needed for Cough. benzonatate 2022-0 Yes [id number] 100mg Take 1 [facility] 100 mg 2-21 capsule by ity of capsule 00:00: mouth (three) Medical times Branch daily as needed for Cough. benzonatate 2022-0 Yes [id number] 100mg Take 1 [facility] 100 mg 2-21 capsule by ity of capsule 00:00: mouth (three) Medical times Branch daily as needed for Cough. benzonatate 2022-0 Yes [id number] 100mg Take 1 [facility] 100 mg 2-21 capsule by ity of capsule 00:00: mouth (three) Medical times Branch daily as needed for Cough. benzonatate 2022-0 Yes [id number] 100mg Take 1 [facility] 100 mg 2-21 capsule by ity of capsule 00:00: mouth (three) Medical times Branch daily as needed for Cough. benzonatate 2022-0 Yes [id number] 100mg Take 1 [facility] 100 mg 2-21 capsule by ity of capsule 00:00: mouth (three) Medical times Branch daily as needed for Cough. benzonatate 2022-0 Yes [id number] 100mg Take 1 [facility] 100 mg 2-21 capsule by ity of capsule 00:00: mouth (three) Medical times Branch daily as needed for Cough. benzonatate 2022-0 Yes [id number] 100mg Take 1 [facility] 100 mg 2-21 capsule by ity of capsule 00:00: mouth (three) Medical times Branch daily as needed for Cough. benzonatate 2022-0 Yes [id number] 100mg Take 1 [facility] 100 mg 2-21 capsule by ity of capsule 00:00: mouth (three) Medical times Branch daily as needed for Cough. benzonatate 2022-0 Yes [id number] 100mg Take 1 [facility] 100 mg 2-21 capsule by ity of capsule 00:00: mouth (three) Medical times Branch daily as needed for Cough. benzonatate 2022-0 Yes [id number] 100mg Take 1 [facility] 100 mg 2-21 capsule by ity of capsule 00:00: mouth (three) Medical times Branch daily as needed for Cough. benzonatate 2022-0 Yes [id number] 100mg Take 1 [facility] 100 mg 2-21 capsule by ity of capsule 00:00: mouth (three) Medical times Branch daily as needed for Cough. benzonatate 2022-0 Yes [id number] 100mg Take 1 [facility] 100 mg 2-21 capsule by ity of capsule 00:00: mouth (three) Medical times Branch daily as needed for Cough. benzonatate 2022-0 Yes [id number] 100mg Take 1 [facility] 100 mg 2-21 capsule by ity of capsule 00:00: mouth (three) Medical times Branch daily as needed for Cough. benzonatate 2022-0 Yes [id number] 100mg Take 1 [facility] 100 mg 2-21 capsule by ity of capsule 00:00: mouth (three) Medical times Branch daily as needed for Cough. benzonatate 2022-0 Yes [id number] 100mg Take 1 [facility] 100 mg 2-21 capsule by ity of capsule 00:00: mouth (three) Medical times Branch daily as needed for Cough. benzonatate 2022-0 Yes [id number] 100mg Take 1 [facility] 100 mg 2-21 capsule by ity of capsule 00:00: mouth (three) Medical times Branch daily as needed for Cough. benzonatate 2022-0 Yes [id number] 100mg Take 1 [facility] 100 mg 2-21 capsule by ity of capsule 00:00: mouth (three) Medical times Branch daily as needed for Cough. benzonatate 2022-0 Yes [id number] 100mg Take 1 [facility] 100 mg 2-21 capsule by ity of capsule 00:00: mouth (three) Medical times Branch daily as needed for Cough. benzonatate 2022-0 Yes [id number] 100mg Take 1 [facility] 100 mg 2-21 capsule by ity of capsule 00:00: mouth (three) Medical times Branch daily as needed for Cough. benzonatate 2022-0 Yes [id number] 100mg Take 1 [facility] 100 mg 2-21 capsule by ity of capsule 00:00: mouth (three) Medical times Branch daily as needed for Cough. benzonatate 2022-0 Yes [id number] 100mg Take 1 [facility] 100 mg 2-21 capsule by ity of capsule 00:00: mouth (three) Medical times Branch daily as needed for Cough. benzonatate 2022-0 Yes [id number] 100mg Take 1 [facility] 100 mg 2-21 capsule by ity of capsule 00:00: mouth 3 (three) Medical times Branch daily as needed for Cough. benzonatate 2022-0 Yes [id number] 100mg Take 1 [facility] 100 mg 2-21 capsule by ity of capsule 00:00: mouth (three) Medical times Branch daily as needed for Cough. benzonatate 2022-0 Yes [id number] 100mg Take 1 [facility] 100 mg 2-21 capsule by ity of capsule 00:00: mouth (three) Medical times Branch daily as needed for Cough. benzonatate 2022-0 Yes [id number] 100mg Take 1 [facility] 100 mg 2-21 capsule by ity of capsule 00:00: mouth (three) Medical times Branch daily as needed for Cough. benzonatate 2022-0 Yes [id number] 100mg Take 1 [facility] 100 mg 2-21 capsule by ity of capsule 00:00: mouth (three) Medical times Branch daily as needed for Cough. benzonatate 2022-0 Yes [id number] 100mg Take 1 [facility] 100 mg 2-21 capsule by ity of capsule 00:00: mouth (three) Medical times Branch daily as needed for Cough. benzonatate 2022-0 Yes [id number] 100mg Take 1 [facility] 100 mg 2-21 capsule by ity of capsule 00:00: mouth (three) Medical times Branch daily as needed for Cough. benzonatate 2022-0 Yes [id number] 100mg Take 1 [facility] 100 mg 2-21 capsule by ity of capsule 00:00: mouth (three) Medical times Branch daily as needed for Cough. benzonatate 2022-0 Yes [id number] 100mg Take 1 [facility] 100 mg 2-21 capsule by ity of capsule 00:00: mouth (three) Medical times Branch daily as needed for Cough. benzonatate 2022-0 Yes [id number] 100mg Take 1 [facility] 100 mg 2-21 capsule by ity of capsule 00:00: mouth (three) Medical times Branch daily as needed for Cough. benzonatate 2022-0 Yes [id number] 100mg Take 1 [facility] 100 mg 2-21 capsule by ity of capsule 00:00: mouth (three) Medical times Branch daily as needed for Cough. benzonatate 2022-0 Yes [id number] 100mg Take 1 [facility] 100 mg 2-21 capsule by ity of capsule 00:00: mouth (three) Medical times Branch daily as needed for Cough. benzonatate 2022-0 Yes [id number] 100mg Take 1 [facility] 100 mg 2-21 capsule by ity of capsule 00:00: mouth (three) Medical times Branch daily as needed for Cough. benzonatate 2022-0 Yes [id number] 100mg Take 1 [facility] 100 mg 2-21 capsule by ity of capsule 00:00: mouth 3 (three) Medical times Branch daily as needed for Cough. benzonatate 2022-0 Yes [id number] 100mg Take 1 [facility] 100 mg 2-21 capsule by ity of capsule 00:00: mouth (three) Medical times Branch daily as needed for Cough. benzonatate 2022-0 Yes [id number] 100mg Take 1 [facility] 100 mg 2-21 capsule by ity of capsule 00:00: mouth (three) Medical times Branch daily as needed for Cough. benzonatate 2022-0 Yes [id number] 100mg Take 1 [facility] 100 mg 2-21 capsule by ity of capsule 00:00: mouth (three) Medical times Branch daily as needed for Cough. benzonatate 2022-0 Yes [id number] 100mg Take 1 [facility] 100 mg 2-21 capsule by ity of capsule 00:00: mouth (three) Medical times Branch daily as needed for Cough. benzonatate 2022-0 Yes [id number] 100mg Take 1 [facility] 100 mg 2-21 capsule by ity of capsule 00:00: mouth (three) Medical times Branch daily as needed for Cough. benzonatate 2022-0 Yes [id number] 100mg Take 1 [facility] 100 mg 2-21 capsule by ity of capsule 00:00: mouth (three) Medical times Branch daily as needed for Cough. benzonatate 2022-0 Yes [id number] 100mg Take 1 [facility] 100 mg 2-21 capsule by ity of capsule 00:00: mouth (three) Medical times Branch daily as needed for Cough. benzonatate 2022-0 Yes [id number] 100mg Take 1 [facility] 100 mg 2-21 capsule by ity of capsule 00:00: mouth 3 (three) Medical times Branch daily as needed for Cough. benzonatate 2022-0 Yes [id number] 100mg Take 1 [facility] 100 mg 2-21 capsule by ity of capsule 00:00: mouth (three) Medical times Branch daily as needed for Cough. benzonatate 2022-0 Yes [id number] 100mg Take 1 [facility] 100 mg 2-21 capsule by [facility] capsule 00:00: mouth (three) Medical times Branch daily as needed for Cough. benzonatate 2022-0 Yes [id number] 100mg Take 1 [facility] 100 mg 2-21 capsule by [facility] capsule 00:00: mouth (three) Medical times Branch daily as needed for Cough. benzonatate 2022-0 Yes [id number] 100mg Take 1 [facility] 100 mg 2-21 capsule by [facility] capsule 00:00: mouth (three) Medical times Branch daily as needed for Cough. benzonatate 2022-0 Yes [id number] 100mg Take 1 [facility] 100 mg 2-21 capsule by [facility] capsule 00:00: mouth (three) Medical times Branch daily as needed for Cough. benzonatate 2022-0 Yes [id number] 100mg Take 1 [facility] 100 mg 2-21 capsule by [facility] capsule 00:00: mouth (three) Medical times Branch daily as needed for Cough. benzonatate 2022-0 Yes [id number] 100mg Take 1 [facility] 100 mg 2-21 capsule by [facility] of capsule 00:00: mouth (three) Medical times Branch daily as needed for Cough. benzonatate 2-0 Yes [id number] 100mg Take 1 [facility] 100 mg 2-21 capsule by [facility] of capsule 00:00: mouth (three) Medical times Branch daily as needed for Cough. benzonatate 2022-0 Yes [id number] 100mg Take 1 [facility] 100 mg 2-21 capsule by [facility] capsule 00:00: mouth (three) Medical times Branch daily as needed for Cough. benzonatate 2022-0 Yes [id number] 100mg Take 1 [facility] 100 mg 2-21 capsule by [facility] of capsule 00:00: mouth (three) Medical times Branch daily as needed for Cough. benztropine 2020-1 Yes [id number] 1mg Take 1 [facility] 1 mg tablet 0-25 tablet by [facility] of 00:00: mouth (two) Medical times Branch daily as needed (tremor). benztropine 2020-07 Yes [id number] 1mg Take 1 [facility] 1 mg tablet 0-25 tablet by [facility] of 00:00: mouth (two) Medical times Branch daily as needed (tremor). benztropine 2020-07 Yes [id number] 1mg Take 1 [facility] 1 mg tablet 0-25 tablet by [facility] of 00:00: mouth (two) Medical times Branch daily as needed (tremor). benztropine 2020-07 Yes [id number] 1mg Take 1 [facility] 1 mg tablet 0-25 tablet by [facility] of 00:00: mouth (two) Medical times Branch daily as needed (tremor). benztropine 2020-07 Yes [id number] 1mg Take 1 [facility] 1 mg tablet 0-25 tablet by [facility] of 00:00: mouth (two) Medical times Branch daily as needed (tremor). benztropine 2020-07 Yes [id number] 1mg Take 1 [facility] 1 mg tablet 0-25 tablet by [facility] of 00:00: mouth (two) Medical times Branch daily as needed (tremor). benztropine 2020-07 Yes [id number] 1mg Take 1 [facility] 1 mg tablet 0-25 tablet by [facility] of 00:00: mouth (two) Medical times Branch daily as needed (tremor). benztropine 2020-07 Yes [id number] 1mg Take 1 [facility] 1 mg tablet 0-25 tablet by [facility] of 00:00: mouth (two) Medical times Branch daily as needed (tremor). benztropine 2020-07 Yes [id number] 1mg Take 1 [facility] 1 mg tablet 0-25 tablet by [facility] of 00:00: mouth (two) Medical times Branch daily as needed (tremor). benztropine 2020-07 Yes [id number] 1mg Take 1 [facility] 1 mg tablet 0-25 tablet by [facility] of 00:00: mouth (two) Medical times Branch daily as needed (tremor). benztropine 2020-07 Yes [id number] 1mg Take 1 [facility] 1 mg tablet 0-25 tablet by [facility] of 00:00: mouth (two) Medical times Branch daily as needed (tremor). benztropine 2020-07 Yes [id number] 1mg Take 1 [facility] 1 mg tablet 0-25 tablet by [facility] of 00:00: mouth (two) Medical times Branch daily as needed (tremor). benztropine 2020-07 Yes [id number] 1mg Take 1 [facility] 1 mg tablet 0-25 tablet by [facility] of 00:00: mouth (two) Medical times Branch daily as needed (tremor). benztropine 2020-07 Yes [id number] 1mg Take 1 [facility] 1 mg tablet 0-25 tablet by [facility] of 00:00: mouth (two) Medical times Branch daily as needed (tremor). benztropine 2020-07 Yes [id number] 1mg Take 1 [facility] 1 mg tablet 0-25 tablet by [facility] of 00:00: mouth (two) Medical times Branch daily as needed (tremor). benztropine 2020-07 Yes [id number] 1mg Take 1 [facility] 1 mg tablet 0-25 tablet by [facility] of 00:00: mouth (two) Medical times Branch daily as needed (tremor). benztropine 2020-07 Yes [id number] 1mg Take 1 [facility] 1 mg tablet 0-25 tablet by [facility] of 00:00: mouth (two) Medical times Branch daily as needed (tremor). benztropine 2020-07 Yes [id number] 1mg Take 1 [facility] 1 mg tablet 0-25 tablet by [facility] of 00:00: mouth (two) Medical times Branch daily as needed (tremor). benztropine 2020-07 Yes [id number] 1mg Take 1 [facility] 1 mg tablet 0-25 tablet by [facility] of 00:00: mouth (two) Medical times Branch daily as needed (tremor). benztropine 2020-07 Yes [id number] 1mg Take 1 [facility] 1 mg tablet 0-25 tablet by [facility] of 00:00: mouth (two) Medical times Branch daily as needed (tremor). benztropine 2020-07 Yes [id number] 1mg Take 1 [facility] 1 mg tablet 0-25 tablet by [facility] of 00:00: mouth (two) Medical times Branch daily as needed (tremor). benztropine 2020-07 Yes [id number] 1mg Take 1 [facility] 1 mg tablet 0-25 tablet by [facility] of 00:00: mouth (two) Medical times Branch daily as needed (tremor). benztropine 2020-07 Yes [id number] 1mg Take 1 [facility] 1 mg tablet 0-25 tablet by [facility] of 00:00: mouth (two) Medical times Branch daily as needed (tremor). benztropine 2020-07 Yes [id number] 1mg Take 1 [facility] 1 mg tablet 0-25 tablet by [facility] of 00:00: mouth (two) Medical times Branch daily as needed (tremor). benztropine 2020-07 Yes [id number] 1mg Take 1 [facility] 1 mg tablet 0-25 tablet by [facility] of 00:00: mouth (two) Medical times Branch daily as needed (tremor). benztropine 2020-07 Yes [id number] 1mg Take 1 [facility] 1 mg tablet 0-25 tablet by [facility] of 00:00: mouth (two) Medical times Branch daily as needed (tremor). benztropine 2020-07 Yes [id number] 1mg Take 1 [facility] 1 mg tablet 0-25 tablet by [facility] of 00:00: mouth (two) Medical times Branch daily as needed (tremor). benztropine 2020-07 Yes [id number] 1mg Take 1 [facility] 1 mg tablet 0-25 tablet by [facility] of 00:00: mouth (two) Medical times Branch daily as needed (tremor). benztropine 2020-07 Yes [id number] 1mg Take 1 [facility] 1 mg tablet 0-25 tablet by [facility] of 00:00: mouth (two) Medical times Branch daily as needed (tremor). benztropine 2020-07 Yes [id number] 1mg Take 1 [facility] 1 mg tablet 0-25 tablet by [facility] of 00:00: mouth (two) Medical times Branch daily as needed (tremor). benztropine 2020-07 Yes [id number] 1mg Take 1 [facility] 1 mg tablet 0-25 tablet by [facility] of 00:00: mouth (two) Medical times Branch daily as needed (tremor). benztropine 2020-07 Yes [id number] 1mg Take 1 [facility] 1 mg tablet 0-25 tablet by [facility] of 00:00: mouth (two) Medical times Branch daily as needed (tremor). benztropine 2020-07 Yes [id number] 1mg Take 1 [facility] 1 mg tablet 0-25 tablet by [facility] of 00:00: mouth (two) Medical times Branch daily as needed (tremor). benztropine 2020-07 Yes [id number] 1mg Take 1 [facility] 1 mg tablet 0-25 tablet by [facility] of 00:00: mouth (two) Medical times Branch daily as needed (tremor). benztropine 2020-07 Yes [id number] 1mg Take 1 [facility] 1 mg tablet 0-25 tablet by [facility] of 00:00: mouth (two) Medical times Branch daily as needed (tremor). benztropine 2020-07 Yes [id number] 1mg Take 1 [facility] 1 mg tablet 0-25 tablet by [facility] of 00:00: mouth (two) Medical times Branch daily as needed (tremor). benztropine 2020-07 Yes [id number] 1mg Take 1 [facility] 1 mg tablet 0-25 tablet by [facility] of 00:00: mouth (two) Medical times Branch daily as needed (tremor). benztropine 2020-07 Yes [id number] 1mg Take 1 [facility] 1 mg tablet 0-25 tablet by [facility] of 00:00: mouth (two) Medical times Branch daily as needed (tremor). benztropine 2020-07 Yes [id number] 1mg Take 1 [facility] 1 mg tablet 0-25 tablet by [facility] of 00:00: mouth (two) Medical times Branch daily as needed (tremor). benztropine 2020-07 Yes [id number] 1mg Take 1 [facility] 1 mg tablet 0-25 tablet by [facility] of 00:00: mouth (two) Medical times Branch daily as needed (tremor). benztropine 2020-07 Yes [id number] 1mg Take 1 [facility] 1 mg tablet 0-25 tablet by [facility] of 00:00: mouth (two) Medical times Branch daily as needed (tremor). benztropine 2020-07 Yes [id number] 1mg Take 1 [facility] 1 mg tablet 0-25 tablet by [facility] of 00:00: mouth (two) Medical times Branch daily as needed (tremor). benztropine 2020-07 Yes [id number] 1mg Take 1 [facility] 1 mg tablet 0-25 tablet by [facility] of 00:00: mouth (two) Medical times Branch daily as needed (tremor). benztropine 2020-07 Yes [id number] 1mg Take 1 [facility] 1 mg tablet 0-25 tablet by [facility] of 00:00: mouth (two) Medical times Branch daily as needed (tremor). benztropine 2020-07 Yes [id number] 1mg Take 1 [facility] 1 mg tablet 0-25 tablet by [facility] of 00:00: mouth (two) Medical times Branch daily as needed (tremor). benztropine 2020-07 Yes [id number] 1mg Take 1 [facility] 1 mg tablet 0-25 tablet by [facility] of 00:00: mouth (two) Medical times Branch daily as needed (tremor). benztropine 2020-07 Yes [id number] 1mg Take 1 [facility] 1 mg tablet 0-25 tablet by [facility] of 00:00: mouth (two) Medical times Branch daily as needed (tremor). benztropine 2020-07 Yes [id number] 1mg Take 1 [facility] 1 mg tablet 0-25 tablet by [facility] of 00:00: mouth (two) Medical times Branch daily as needed (tremor). benztropine 2020-07 Yes [id number] 1mg Take 1 [facility] 1 mg tablet 0-25 tablet by [facility] of 00:00: mouth (two) Medical times Branch daily as needed (tremor). benztropine 2020-07 Yes [id number] 1mg Take 1 [facility] 1 mg tablet 0-25 tablet by [facility] of 00:00: mouth (two) Medical times Branch daily as needed (tremor). benztropine 2020-07 Yes [id number] 1mg Take 1 [facility] 1 mg tablet 0-25 tablet by [facility] of 00:00: mouth (two) Medical times Branch daily as needed (tremor). benztropine 2020-07 Yes [id number] 1mg Take 1 [facility] 1 mg tablet 0-25 tablet by [facility] of 00:00: mouth (two) Medical times Branch daily as needed (tremor). benztropine 2020-07 Yes [id number] 1mg Take 1 [facility] 1 mg tablet 0-25 tablet by [facility] of 00:00: mouth (two) Medical times Branch daily as needed (tremor). benztropine 2020-07 Yes [id number] 1mg Take 1 [facility] 1 mg tablet 0-25 tablet by [facility] of 00:00: mouth (two) Medical times Branch daily as needed (tremor). benztropine 2020-07 Yes [id number] 1mg Take 1 [facility] 1 mg tablet 0-25 tablet by [facility] of 00:00: mouth (two) Medical times Branch daily as needed (tremor). benztropine 2020-07 Yes [id number] 1mg Take 1 [facility] 1 mg tablet 0-25 tablet by [facility] of 00:00: mouth (two) Medical times Branch daily as needed (tremor). benztropine 2020-07 Yes [id number] 1mg Take 1 [facility] 1 mg tablet 0-25 tablet by [facility] of 00:00: mouth (two) Medical times Branch daily as needed (tremor). benztropine 2020-07 Yes [id number] 1mg Take 1 [facility] 1 mg tablet 0-25 tablet by [facility] of 00:00: mouth (two) Medical times Branch daily as needed (tremor). benztropine 2020-07 Yes [id number] 1mg Take 1 [facility] 1 mg tablet 0-25 tablet by [facility] of 00:00: mouth (two) Medical times Branch daily as needed (tremor). benztropine 2020-07 Yes [id number] 1mg Take 1 [facility] 1 mg tablet 0-25 tablet by [facility] of 00:00: mouth (two) Medical times Branch daily as needed (tremor). benztropine 2020-07 Yes [id number] 1mg Take 1 [facility] 1 mg tablet 0-25 tablet by [facility] of 00:00: mouth (two) Medical times Branch daily as needed (tremor). benztropine 2020-07 Yes [id number] 1mg Take 1 [facility] 1 mg tablet 0-25 tablet by [facility] of 00:00: mouth (two) Medical times Branch daily as needed (tremor). benztropine 2020-07 Yes [id number] 1mg Take 1 [facility] 1 mg tablet 0-25 tablet by [facility] of 00:00: mouth 2 [place] 00 (two) Medical times Branch daily as needed (tremor). benztropine 2020-07 Yes [id number] 1mg Take 1 [facility] 1 mg tablet 0-25 tablet by [facility] of 00:00: mouth 2 [place] 00 (two) Medical times Branch daily as needed (tremor). meloxicam Yes [id number] 7.5mg Take 1 [facility] 7.5 mg 9-08 9109 tablet by [facility] of tablet 00:00: mouth [place] 00 daily. [facility] meloxicam Yes [id number] 7.5mg Take 1 [facility] 7.5 mg 9-08 9109 tablet by [facility] of tablet 00:00: mouth [place] 00 daily. [facility] meloxicam Yes [id number] 7.5mg Take 1 [facility] 7.5 mg 9-08 9109 tablet by [facility]y of tablet 00:00: mouth [place] 00 daily. [facility] meloxicam Yes [id number] 7.5mg Take 1 [facility] 7.5 mg 9-08 9109 tablet by [facility]y of tablet 00:00: mouth [place] 00 daily. [facility] meloxicam Yes [id number] 7.5mg Take 1 [facility] 7.5 mg 9-08 9109 tablet by ity of tablet 00:00: mouth [place] 00 daily. [facility] meloxicam Yes [id number] 7.5mg Take 1 [facility] 7.5 mg 9-08 9109 tablet by [facility]y of tablet 00:00: mouth [place] 00 daily. [facility] meloxicam Yes [id number] 7.5mg Take 1 [facility] 7.5 mg 9-08 9109 tablet by [facility]y of tablet 00:00: mouth [place] 00 daily. [facility] meloxicam 0 Yes [id number] 7.5mg Take 1 [facility] 7.5 mg 9-08 9109 tablet by [facility]y of tablet 00:00: mouth [place] 00 daily. [facility] meloxicam Yes [id number] 7.5mg Take 1 [facility] 7.5 mg 9-08 9109 tablet by [facility]y of tablet 00:00: mouth [place] 00 daily. [facility] meloxicam 2021-0 Yes [id number] 7.5mg Take 1 [facility] 7.5 mg 9-08 9109 tablet by [facility]y of tablet 00:00: mouth [place] 00 daily. [facility] meloxicam 0 Yes [id number] 7.5mg Take 1 [facility] 7.5 mg 9-08 9109 tablet by [facility]y of tablet 00:00: mouth [place] 00 daily. [facility] meloxicam 0 Yes [id number] 7.5mg Take 1 [facility] 7.5 mg 9-08 9109 tablet by [facility]y of tablet 00:00: mouth [place] 00 daily. [facility] meloxicam 0 Yes [id number] 7.5mg Take 1 [facility] 7.5 mg 9-08 9109 tablet by [facility]y of tablet 00:00: mouth [place] 00 daily. [facility] meloxicam Yes [id number] 7.5mg Take 1 [facility] 7.5 mg 9-08 9109 tablet by [facility]y of tablet 00:00: mouth [place] 00 daily. [facility] meloxicam 0 Yes [id number] 7.5mg Take 1 [facility] 7.5 mg 9-08 9109 tablet by [facility]y of tablet 00:00: mouth [place] 00 daily. [facility] meloxicam 0 Yes [id number] 7.5mg Take 1 [facility] 7.5 mg 9-08 9109 tablet by [facility]y of tablet 00:00: mouth [place] 00 daily. [facility] meloxicam 0 Yes [id number] 7.5mg Take 1 [facility] 7.5 mg 9-08 9109 tablet by ity of tablet 00:00: mouth [place] 00 daily. [facility] meloxicam 0 Yes [id number] 7.5mg Take 1 [facility] 7.5 mg 9-08 9109 tablet by ity of tablet 00:00: mouth [place] 00 daily. [facility] meloxicam 0 Yes [id number] 7.5mg Take 1 [facility] 7.5 mg 9-08 9109 tablet by [facility]y of tablet 00:00: mouth [place] 00 daily. [facility] meloxicam 0 Yes [id number] 7.5mg Take 1 [facility] 7.5 mg 9-08 9109 tablet by ity of tablet 00:00: mouth [place] 00 daily. [facility] meloxicam 2021-0 Yes [id number] 7.5mg Take 1 [facility] 7.5 mg 9-08 9109 tablet by [facility]y of tablet 00:00: mouth [place] 00 daily. [facility] meloxicam 2020-0 Yes [id number] 7.5mg Take 1 [facility] 7.5 mg 9-08 9109 tablet by [facility]y of tablet 00:00: mouth [place] 00 daily. [facility] meloxicam 2020-0 Yes [id number] 7.5mg Take 1 [facility] 7.5 mg 9-08 9109 tablet by [facility]y of tablet 00:00: mouth [place] 00 daily. [facility] meloxicam 0 Yes [id number] 7.5mg Take 1 [facility] 7.5 mg 9-08 9109 tablet by ity of tablet 00:00: mouth [place] 00 daily. [facility] meloxicam 0 Yes [id number] 7.5mg Take 1 [facility] 7.5 mg 9-08 9109 tablet by ity of tablet 00:00: mouth [place] 00 daily. [facility] meloxicam 0 Yes [id number] 7.5mg Take 1 [facility] 7.5 mg 9-08 9109 tablet by ity of tablet 00:00: mouth [place] 00 daily. [facility] meloxicam 0 Yes [id number] 7.5mg Take 1 [facility] 7.5 mg 9-08 9109 tablet by [facility]y of tablet 00:00: mouth [place] 00 daily. [facility] meloxicam 0 Yes [id number] 7.5mg Take 1 [facility] 7.5 mg 9-08 9109 tablet by ity of tablet 00:00: mouth [place] 00 daily. [facility] meloxicam 0 Yes [id number] 7.5mg Take 1 [facility] 7.5 mg 9-08 9109 tablet by ity of tablet 00:00: mouth [place] 00 daily. [facility] meloxicam 0 Yes [id number] 7.5mg Take 1 [facility] 7.5 mg 9-08 9109 tablet by [facility]y of tablet 00:00: mouth [place] 00 daily. [facility] meloxicam 0 Yes [id number] 7.5mg Take 1 [facility] 7.5 mg 9-08 9109 tablet by ity of tablet 00:00: mouth [place] 00 daily. [facility] meloxicam 0 Yes [id number] 7.5mg Take 1 [facility] 7.5 mg 9-08 9109 tablet by [facility]y of tablet 00:00: mouth [place] 00 daily. [facility] meloxicam 2020-0 Yes [id number] 7.5mg Take 1 [facility] 7.5 mg 9-08 9109 tablet by [facility]y of tablet 00:00: mouth [place] 00 daily. [facility] meloxicam 2020-0 Yes [id number] 7.5mg Take 1 [facility] 7.5 mg 9-08 9109 tablet by ity of tablet 00:00: mouth [place] 00 daily. [facility] meloxicam 0 Yes [id number] 7.5mg Take 1 [facility] 7.5 mg 9-08 9109 tablet by [facility]y of tablet 00:00: mouth [place] 00 daily. [facility] meloxicam 0 Yes [id number] 7.5mg Take 1 [facility] 7.5 mg 9-08 9109 tablet by ity of tablet 00:00: mouth [place] 00 daily. [facility] meloxicam 0 Yes [id number] 7.5mg Take 1 [facility] 7.5 mg 9-08 9109 tablet by ity of tablet 00:00: mouth [place] 00 daily. [facility] meloxicam 0 Yes [id number] 7.5mg Take 1 [facility] 7.5 mg 9-08 9109 tablet by [facility]y of tablet 00:00: mouth [place] 00 daily. [facility] meloxicam 0 Yes [id number] 7.5mg Take 1 [facility] 7.5 mg 9-08 9109 tablet by [facility]y of tablet 00:00: mouth [place] 00 daily. [facility] meloxicam 0 Yes [id number] 7.5mg Take 1 [facility] 7.5 mg 9-08 9109 tablet by [facility]y of tablet 00:00: mouth [place] 00 daily. [facility] meloxicam 2020-0 Yes [id number] 7.5mg Take 1 [facility] 7.5 mg 9-08 9109 tablet by ity of tablet 00:00: mouth [place] 00 daily. [facility] meloxicam 0 Yes [id number] 7.5mg Take 1 [facility] 7.5 mg 9-08 9109 tablet by [facility]y of tablet 00:00: mouth [place] 00 daily. [facility] meloxicam 2020-0 Yes [id number] 7.5mg Take 1 [facility] 7.5 mg 9-08 9109 tablet by [facility]y of tablet 00:00: mouth [place] 00 daily. [facility] meloxicam 2020-0 Yes [id number] 7.5mg Take 1 [facility] 7.5 mg 9-08 9109 tablet by [facility]y of tablet 00:00: mouth [place] 00 daily. [facility] meloxicam 2020-0 Yes [id number] 7.5mg Take 1 [facility] 7.5 mg 9-08 9109 tablet by ity of tablet 00:00: mouth [place] 00 daily. [facility] meloxicam 2020-0 Yes [id number] 7.5mg Take 1 [facility] 7.5 mg 9-08 9109 tablet by [facility]y of tablet 00:00: mouth [place] 00 daily. [facility] meloxicam 0 Yes [id number] 7.5mg Take 1 [facility] 7.5 mg 9-08 9109 tablet by ity of tablet 00:00: mouth [place] 00 daily. [facility] meloxicam 0 Yes [id number] 7.5mg Take 1 [facility] 7.5 mg 9-08 9109 tablet by [facility]y of tablet 00:00: mouth [place] 00 daily. [facility] meloxicam 0 Yes [id number] 7.5mg Take 1 [facility] 7.5 mg 9-08 9109 tablet by [facility]y of tablet 00:00: mouth [place] 00 daily. [facility] meloxicam 2020-0 Yes [id number] 7.5mg Take 1 [facility] 7.5 mg 9-08 9109 tablet by ity of tablet 00:00: mouth [place] 00 daily. [facility] meloxicam 0 Yes [id number] 7.5mg Take 1 [facility] 7.5 mg 9-08 9109 tablet by [facility]y of tablet 00:00: mouth [place] 00 daily. [facility] meloxicam 2020-0 Yes [id number] 7.5mg Take 1 [facility] 7.5 mg 9-08 9109 tablet by [facility]y of tablet 00:00: mouth [place] 00 daily. [facility] meloxicam 2020-0 Yes [id number] 7.5mg Take 1 [facility] 7.5 mg 9-08 9109 tablet by [facility]y of tablet 00:00: mouth [place] 00 daily. [facility] meloxicam 2020-0 Yes [id number] 7.5mg Take 1 [facility] 7.5 mg 9-08 9109 tablet by [facility]y of tablet 00:00: mouth [place] 00 daily. [facility] meloxicam 0 Yes [id number] 7.5mg Take 1 [facility] 7.5 mg 9-08 9109 tablet by [facility]y of tablet 00:00: mouth [place] 00 daily. [facility] meloxicam 0 Yes [id number] 7.5mg Take 1 [facility] 7.5 mg 9-08 9109 tablet by ity of tablet 00:00: mouth [place] 00 daily. [facility] meloxicam 0 Yes [id number] 7.5mg Take 1 [facility] 7.5 mg 9-08 9109 tablet by ity of tablet 00:00: mouth [place] 00 daily. [facility] meloxicam 0 Yes [id number] 7.5mg Take 1 [facility] 7.5 mg 9-08 9109 tablet by ity of tablet 00:00: mouth [place] 00 daily. [facility] meloxicam 0 Yes [id number] 7.5mg Take 1 [facility] 7.5 mg 9-08 9109 tablet by ity of tablet 00:00: mouth [place] 00 daily. [facility] meloxicam 0 Yes [id number] 7.5mg Take 1 [facility] 7.5 mg 9-08 9109 tablet by ity of tablet 00:00: mouth [place] 00 daily. [facility] meloxicam 0 Yes [id number] 7.5mg Take 1 [facility] 7.5 mg 9-08 9109 tablet by ity of tablet 00:00: mouth [place] 00 daily. [facility] meloxicam 0 Yes [id number] 7.5mg Take 1 [facility] 7.5 mg 9-08 9109 tablet by ity of tablet 00:00: mouth [place] 00 daily. [facility] meloxicam 0 Yes [id number] 7.5mg Take 1 [facility] 7.5 mg 9-08 9109 tablet by [facility]y of tablet 00:00: mouth [place] 00 daily. [facility] meloxicam 0 Yes [id number] 7.5mg Take 1 [facility] 7.5 mg 9-08 9109 tablet by ity of tablet 00:00: mouth [place] 00 daily. [facility] diclofenac 0 Yes 75mg Take 1 [facility] rs 75 mg EC 4-23 tablet by ity of tablet 00:00: mouth 2 [place] 00 (two) Medical times Branch daily with meals. [...] times Branch daily with meals. diclofenac 2020-0 3- No 75mg Take 1 [facility] ers 75 mg EC 4-23 04-21 tablet by ity o f tablet 00:00: 00:00 mouth 00 :00 (two) Medical times Branch daily with meals. azithromyci 2020-0 Yes [id number] 250mg Take 1 [facility] n 4-20 tablet by ity of (ZITHROMAX 00:00: mouth [place] Z-SEBAS) 250 00 SEE-INSTRU Med ical mg tablet CTIONS. Branch Take 500 mg day 1, then 250 mg days 2 to 5. Nitrofurant 2020-0 Yes [id number] 100mg Take 1 [facility] oin&Nit. 4-20 capsule by ity o f Macrocryst 00:00: mouth [place] (MACROBID[place] 00 (two) Medical 100 mg times Branch capsule daily. azithromyci 2020-0 Yes [id number] 250mg Take 1 [facility] n 4-20 tablet by ity of (ZITHROMAX 00:00: mouth [place] Z-SEBAS) 250 00 SEE-INSTRU Med ical mg tablet CTIONS. Branch Take 500 mg day 1, then 250 mg days 2 to 5. Nitrofurant 2020-0 Yes [id number] 100mg Take 1 [facility] oin&Nit. 4-20 capsule by ity o f Macrocryst 00:00: mouth [place] (MACROBID) 00 (two) Medical 100 mg times Branch capsule daily. azithromyci 2020-0 Yes [id number] 250mg Take 1 [facility] n 4-20 tablet by ity of (ZITHROMAX 00:00: mouth [place] Z-SEBAS) 250 00 SEE-INSTRU Med ical mg tablet CTIONS. Branch Take 500 mg day 1, then 250 mg days 2 to 5. Nitrofurant 2020-0 Yes [id number] 100mg Take 1 [facility] oin&Nit. 4-20 capsule by ity o f Macrocryst 00:00: mouth [place] (MACROBID) 00 (two) Medical 100 mg times Branch capsule daily. azithromyci 2020-0 Yes [id number] 250mg Take 1 [facility] n 4-20 tablet by ity of (ZITHROMAX 00:00: mouth [place] Z-SEBAS) 250 00 SEE-INSTRU Med ical mg tablet CTIONS. Branch Take 500 mg day 1, then 250 mg days 2 to 5. Nitrofurant 2020-0 Yes [id number] 100mg Take 1 [facility] oin&Nit. 4-20 capsule by ity o f Macrocryst 00:00: mouth [place] (MACROBID) 00 (two) Medical 100 mg times Branch capsule daily. azithromyci 2020-0 Yes [id number] 250mg Take 1 [facility] n 4-20 tablet by ity of (ZITHROMAX 00:00: mouth [place] Z-SEBAS) 250 00 SEE-INSTRU Med ical mg tablet CTIONS. Branch Take 500 mg day 1, then 250 mg days 2 to 5. Nitrofurant 2020-0 Yes [id number] 100mg Take 1 [facility] oin&Nit. 4-20 capsule by ity o f [place]rocryst 00:00: mouth [place] (MACROBID) 00 (two) Medical 100 mg times Branch capsule daily. azithromyci 2020-0 Yes [id number] 250mg Take 1 [facility] n 4-20 tablet by ity of (ZITHROMAX 00:00: mouth [place] Z-SEBAS) 250 00 SEE-INSTRU Med ical mg tablet CTIONS. Branch Take 500 mg day 1, then 250 mg days 2 to 5. Nitrofurant 2020-0 Yes [id number] 100mg Take 1 [facility] oin&Nit. 4-20 capsule by ity o f [place]rocryst 00:00: mouth [place] (MACROBID) 00 (two) Medical 100 mg times Branch capsule daily. azithromyci 2020-0 Yes [id number] 250mg Take 1 [facility] n 4-20 tablet by ity of (ZITHROMAX 00:00: mouth [place] Z-SEBAS) 250 00 SEE-INSTRU Med ical mg tablet CTIONS. Branch Take 500 mg day 1, then 250 mg days 2 to 5. Nitrofurant 2020-0 Yes [id number] 100mg Take 1 [facility] oin&Nit. 4-20 capsule by ity o f Macrocryst 00:00: mouth [place] (MACROBID) 00 (two) Medical 100 mg times Branch capsule daily. azithromyci 2020-0 Yes [id number] 250mg Take 1 [facility] n 4-20 tablet by ity of (ZITHROMAX 00:00: mouth [place] Z-SEBAS) 250 00 SEE-INSTRU Med ical mg tablet CTIONS. Branch Take 500 mg day 1, then 250 mg days 2 to 5. Nitrofurant 2020-0 Yes [id number] 100mg Take 1 [facility] 4-[facility] capsule [facility] [place] (two) Medical 100 mg times Branch capsule daily. azithromyci 2020-0 Yes [id number] 250mg Take 1 [facility] 4-20 tablet by [facility] of (ZITHROMAX 00:00: mouth [place] Z-SEBAS) 250 00 SEE-INSTRU Med ical mg tablet CTIONS. Branch Take 500 mg day 1, then 250 mg days 2 to 5. Nitrofurant 2020-0 Yes [id number] 100mg Take 1 [facility] 4-20 capsule by [facility] [place] (two) Medical 100 mg times [facility] capsule daily. azithromyci 2020-0 Yes [id number] 250mg Take 1 [facility] 4-20 tablet by [facility] of (ZITHROMAX 00:00: mouth [place] Z-SEBAS) 250 00 SEE-INSTRU Med ical mg tablet CTIONS. Branch Take 500 mg day 1, then 250 mg days 2 to 5. Nitrofurant 2020-0 Yes [id number] 100mg Take 1 [facility] 4-20 capsule [facility] [place] (two) Medical 100 mg times [facility] capsule daily. azithromyci 2020-0 Yes [id number] 250mg Take 1 [facility] 4-20 tablet by [facility] of (ZITHROMAX 00:00: mouth [place] Z-SEBAS) 250 00 SEE-INSTRU Med ical mg tablet CTIONS. Branch Take 500 mg day 1, then 250 mg days 2 to 5. Nitrofurant 2020-0 Yes [id number] 100mg Take 1 [facility] 4-20 capsule by [facility] [place] ([place] (two) Medical 100 mg times [facility] capsule daily. azithromyci 2020-0 Yes [id number] 250mg Take 1 [facility] 4-20 tablet by [facility] of (ZITHROMAX 00:00: mouth [place] Z-SEBAS) 250 00 SEE-INSTRU Med ical mg tablet CTIONS. Branch Take 500 mg day 1, then 250 mg days 2 to 5. Nitrofurant 2020-0 Yes [id number] 100mg Take 1 [facility] 4-20 capsule by [facility] [place] ([place] (two) Medical 100 mg times [facility] capsule daily. azithromyci 2020-0 Yes [id number] 250mg Take 1 [facility] 4-20 tablet by [facility] of (ZITHROMAX 00:00: mouth [place] Z-SEBAS) 250 00 SEE-INSTRU Med ical mg tablet CTIONS. Branch Take 500 mg day 1, then 250 mg days 2 to 5. Nitrofurant 2020-0 Yes [id number] 100mg Take 1 [facility] 4-20 capsule by [facility] [place] ([place] (two) Medical 100 mg times [facility] capsule daily. azithromyci 2020-0 Yes [id number] 250mg Take 1 [facility] 4-20 tablet by [facility] of (ZITHROMAX 00:00: mouth [place] Z-SEBAS) 250 00 SEE-INSTRU Med ical mg tablet CTIONS. Branch Take 500 mg day 1, then 250 mg days 2 to 5. Nitrofurant 2020-0 Yes [id number] 100mg Take 1 [facility] 4-20 capsule by [facility] [place] ([place] (two) Medical 100 mg times [facility] capsule daily. azithromyci 2020-0 Yes [id number] 250mg Take 1 [facility] 4-20 tablet by [facility] of (ZITHROMAX 00:00: mouth [place] Z-SEBAS) 250 00 SEE-INSTRU Med ical mg tablet CTIONS. Branch Take 500 mg day 1, then 250 mg days 2 to 5. Nitrofurant 2020-0 Yes [id number] 100mg Take 1 [facility] 4-20 capsule by [facility] [place]: [place] ([place] 00 (two) Medical 100 mg times [facility] capsule daily. azithromyci 2020-0 Yes [id number] 250mg Take 1 [facility] 4-20 tablet by [facility] of (ZITHROMAX 00:00: mouth [place] Z-SEBAS) 250 00 SEE-INSTRU Med ical mg tablet CTIONS. Branch Take 500 mg day 1, then 250 mg days 2 to 5. Nitrofurant 2020-0 Yes [id number] 100mg Take 1 [facility] 4-20 capsule by [facility] [place]: [place] ([place] 00 (two) Medical 100 mg times [facility] capsule daily. azithromyci 2020-0 Yes [id number] 250mg Take 1 [facility] 4-20 tablet by [facility] of (ZITHROMAX 00:00: mouth [place] Z-SEBAS) 250 00 SEE-INSTRU Med ical mg tablet CTIONS. Branch Take 500 mg day 1, then 250 mg days 2 to 5. Nitrofurant 2020-0 Yes [id number] 100mg Take 1 [facility] 4-20 capsule by [facility] [place]: [place] ([place] 00 (two) Medical 100 mg times [facility] capsule daily. azithromyci 2020-0 Yes [id number] 250mg Take 1 [facility] 4-20 tablet by [facility] of (ZITHROMAX 00:00: mouth [place] Z-SEBAS) 250 00 SEE-INSTRU Med ical mg tablet CTIONS. Branch Take 500 mg day 1, then 250 mg days 2 to 5. Nitrofurant 2020-0 Yes [id number] 100mg Take 1 [facility] 4-20 capsule by [facility] [place]: [place] ([place] 00 (two) Medical 100 mg times [facility] capsule daily. azithromyci 2020-0 Yes [id number] 250mg Take 1 [facility] 4-20 tablet by [facility] of (ZITHROMAX 00:00: mouth [place] Z-SEBAS) 250 00 SEE-INSTRU Med ical mg tablet CTIONS. Branch Take 500 mg day 1, then 250 mg days 2 to 5. Nitrofurant 2020-0 Yes [id number] 100mg Take 1 [facility] 4-20 capsule by [facility]:[place]: [place] ([place] 00 (two) Medical 100 mg times [facility] capsule daily. azithromyci 2020-0 Yes [id number] 250mg Take 1 [facility] 4-20 tablet by [facility] of (ZITHROMAX 00:00: mouth [place] Z-SEBAS) 250 00 SEE-INSTRU Med ical mg tablet CTIONS. Branch Take 500 mg day 1, then 250 mg days 2 to 5. Nitrofurant 2020-0 Yes [id number] 100mg Take 1 [facility] 4-20 capsule by [facility] [place]: [place] ([place] 00 (two) Medical 100 mg times [facility] capsule daily. azithromyci 2020-0 Yes [id number] 250mg Take 1 [facility] 4-20 tablet by [facility] of (ZITHROMAX 00:00: mouth [place] Z-SEBAS) 250 00 SEE-INSTRU Med ical mg tablet CTIONS. Branch Take 500 mg day 1, then 250 mg days 2 to 5. Nitrofurant 2020-0 Yes [id number] 100mg Take 1 [facility] 4-20 capsule by [facility] [place]: [place] ([place] 00 (two) Medical 100 mg times [facility] capsule daily. azithromyci 2020-0 Yes [id number] 250mg Take 1 [facility] 4-20 tablet by [facility] of (ZITHROMAX 00:00: mouth [place] Z-SEBAS) 250 00 SEE-INSTRU Med ical mg tablet CTIONS. Branch Take 500 mg day 1, then 250 mg days 2 to 5. Nitrofurant 2020-0 Yes [id number] 100mg Take 1 [facility] 4-20 capsule by [facility] [place]: [place] ([place] 00 (two) Medical 100 mg times [facility] capsule daily. azithromyci 2020-0 Yes [id number] 250mg Take 1 [facility] 4-20 tablet by [facility] of (ZITHROMAX 00:00: mouth [place] Z-SEBAS) 250 00 SEE-INSTRU Med ical mg tablet CTIONS. Branch Take 500 mg day 1, then 250 mg days 2 to 5. Nitrofurant 2020-0 Yes [id number] 100mg Take 1 [facility] 4-20 capsule by [facility] [place]: [place] ([place] 00 (two) Medical 100 mg times [facility] capsule daily. azithromyci 2020-0 Yes [id number] 250mg Take 1 [facility] n 4-20 tablet by [facility] of (ZITHROMAX 00:00: mouth [place] Z-SEBAS) 250 00 SEE-INSTRU Med ical mg tablet CTIONS. Branch Take 500 mg day 1, then 250 mg days 2 to 5. Nitrofurant 2020-0 Yes [id number] 100mg Take 1 [facility] 4-20 capsule by [facility]:[place]: [place] ([place] 00 (two) Medical 100 mg times [facility] capsule daily. azithromyci 2020-0 Yes [id number] 250mg Take 1 [facility] 4-20 tablet by [facility] of (ZITHROMAX 00:00: mouth [place] Z-SBEAS) 250 00 SEE-INSTRU Med ical mg tablet CTIONS. Branch Take 500 mg day 1, then 250 mg days 2 to 5. Nitrofurant 2020-0 Yes [id number] 100mg Take 1 [facility] 4-20 capsule by [facility] [place]: [place] ([place] 00 (two) Medical 100 mg times [facility] capsule daily. azithromyci 2020-0 Yes [id number] 250mg Take 1 [facility] 4-20 tablet by [facility] of (ZITHROMAX 00:00: mouth [place] Z-SEBAS) 250 00 SEE-INSTRU Med ical mg tablet CTIONS. Branch Take 500 mg day 1, then 250 mg days 2 to 5. Nitrofurant 2020-0 Yes [id number] 100mg Take 1 [facility] 4-20 capsule by [facility]:[place]: [place] ([place] 00 (two) Medical 100 mg times [facility] capsule daily. azithromyci 2020-0 Yes [id number] 250mg Take 1 [facility] 4-20 tablet by [facility] of (ZITHROMAX 00:00: mouth [place] Z-SEBAS) 250 00 SEE-INSTRU Med ical mg tablet CTIONS. Branch Take 500 mg day 1, then 250 mg days 2 to 5. Nitrofurant 2020-0 Yes [id number] 100mg Take 1 [facility] 4-20 capsule by [facility]:[place]: [place] ([place] 00 (two) Medical 100 mg times [facility] capsule daily. azithromyci 2020-0 Yes [id number] 250mg Take 1 [facility] 4-20 tablet by [facility] of (ZITHROMAX 00:00: mouth [place] Z-SEBAS) 250 00 SEE-INSTRU Med ical mg tablet CTIONS. Branch Take 500 mg day 1, then 250 mg days 2 to 5. Nitrofurant 2020-0 Yes [id number] 100mg Take 1 [facility] 4-20 capsule by [facility]:[place]: [place] ([place] 00 (two) Medical 100 mg times [facility] capsule daily. azithromyci 2020-0 Yes [id number] 250mg Take 1 [facility] 4-20 tablet by [facility] of (ZITHROMAX 00:00: mouth [place] Z-SEBAS) 250 00 SEE-INSTRU Med ical mg tablet CTIONS. Branch Take 500 mg day 1, then 250 mg days 2 to 5. Nitrofurant 2020-0 Yes [id number] 100mg Take 1 [facility] 4-20 capsule by [facility] 00:[place]: [place] ([place] 00 (two) Medical 100 mg times Branch capsule daily. azithromyci 2020-0 Yes [id number] 250mg Take 1 [facility] 4-20 tablet by [facility] of (ZITHROMAX 00:00: mouth [place] Z-SEBAS) 250 00 SEE-INSTRU Med ical mg tablet CTIONS. Branch Take 500 mg day 1, then 250 mg days 2 to 5. Nitrofurant 2020-0 Yes [id number] 100mg Take 1 [facility] 4-20 capsule by [facility] 00:[facility]: [place] ([place] 00 (two) Medical 100 mg times Branch capsule daily. azithromyci 2020-0 Yes [id number] 250mg Take 1 [facility] n 4-20 tablet by [facility] of (ZITHROMAX 00:00: mouth [place] Z-SEBAS) 250 00 SEE-INSTRU Med ical mg tablet CTIONS. Branch Take 500 mg day 1, then 250 mg days 2 to 5. Nitrofurant 2020-0 Yes [id number] 100mg Take 1 [facility] 4-20 capsule by [facility] 00:[facility]: [place] ([place]CR[place]) 00 (two) Medical 100 mg times Branch capsule daily. azithromyci 2020-0 Yes [id number] 250mg Take 1 [facility] n 4-20 tablet by [facility] of (ZITHROMAX 00:00: mouth [place] Z-SEBAS) 250 00 SEE-INSTRU Med ical mg tablet CTIONS. Branch Take 500 mg day 1, then 250 mg days 2 to 5. Nitrofurant 2020-0 Yes [id number] 100mg Take 1 [facility] 4-20 capsule by [facility] 00:[facility]: [place] ([place]CR[place]) 00 (two) Medical 100 mg times Branch capsule daily. azithromyci 2020-0 Yes [id number] 250mg Take 1 [facility] n 4-20 tablet by [facility] of (ZITHROMAX 00:00: mouth [place] Z-SEBAS) 250 00 SEE-INSTRU Med ical mg tablet CTIONS. Branch Take 500 mg day 1, then 250 mg days 2 to 5. Nitrofurant 2020-0 Yes [id number] 100mg Take 1 [facility] 4-20 capsule by [facility] 00:[facility]: [place] ([place]CR[place]) 00 (two) Medical 100 mg times Branch capsule daily. azithromyci 2020-0 Yes [id number] 250mg Take 1 [facility] n 4-20 tablet by [facility] of (ZITHROMAX 00:00: mouth [place] Z-SEBAS) 250 00 SEE-INSTRU Med ical mg tablet CTIONS. Branch Take 500 mg day 1, then 250 mg days 2 to 5. azithromyci 2020-0 Yes [id number] 250mg Take 1 [facility] 4-20 tablet by [facility] of (ZITHROMAX 00:00: mouth [place] Z-SEBAS) 250 00 SEE-INSTRU Med ical mg tablet CTIONS. Branch Take 500 mg day 1, then 250 mg days 2 to 5. Nitrofurant 2020-0 Yes [id number] 100mg Take 1 [facility] 4-20 capsule by [facility] 00:[place]: [place] ([place]CR[place] 00 (two) Medical 100 mg times Branch capsule daily. Nitrofurant 2020-0 Yes [id number] 100mg Take 1 [facility] 4-20 capsule by [facility] 00:00: [place] ([place]CR[place]) 00 (two) Medical 100 mg times Branch capsule daily. azithromyci 2020-0 Yes [id number] 250mg Take 1 [facility] n 4-20 tablet by [facility] of (ZITHROMAX 00:00: mouth [place] Z-SEBAS) 250 00 SEE-INSTRU Med ical mg tablet CTIONS. Branch Take 500 mg day 1, then 250 mg days 2 to 5. Nitrofurant 2020-0 Yes [id number] 100mg Take 1 [facility] 4-20 capsule by [facility] 00:00: mouth [place] ([place]CR[place]) 00 (two) Medical 100 mg times Branch capsule daily. azithromyci 2020-0 Yes [id number] 250mg Take 1 [facility] n 4-20 tablet by [facility] of (ZITHROMAX 00:00: mouth [place] Z-SEBAS) 250 00 SEE-INSTRU Med ical mg tablet CTIONS. Branch Take 500 mg day 1, then 250 mg days 2 to 5. Nitrofurant 2020-0 Yes [id number] 100mg Take 1 [facility] 4-20 capsule by [facility] 00:00: mouth [place] ([place]CR[place]) 00 (two) Medical 100 mg times Branch capsule daily. azithromyci 2020-0 Yes [id number] 250mg Take 1 [facility] 4-20 tablet by [facility] of (ZITHROMAX 00:00: mouth [place] Z-SEBAS) 250 00 SEE-INSTRU Med ical mg tablet CTIONS. Branch Take 500 mg day 1, then 250 mg days 2 to 5. Nitrofurant 2020-0 Yes [id number] 100mg Take 1 [facility] 4-20 capsule by [facility] 00:00: mouth [place] ([place]CR[place]) 00 (two) Medical 100 mg times Branch capsule daily. azithromyci 2020-0 Yes [id number] 250mg Take 1 [facility] n 4-20 tablet by [facility] of (ZITHROMAX 00:00: mouth [place] Z-SEBAS) 250 00 SEE-INSTRU Med ical mg tablet CTIONS. Branch Take 500 mg day 1, then 250 mg days 2 to 5. Nitrofurant 2020-0 Yes [id number] 100mg Take 1 [facility] 4-20 capsule by [facility] 00:00: mouth [place] ([place]CR[place]) 00 (two) Medical 100 mg times Branch capsule daily. azithromyci 2020-0 Yes [id number] 250mg Take 1 [facility] n 4-20 tablet by [facility] of (ZITHROMAX 00:00: mouth [place] Z-SEBAS) 250 00 SEE-INSTRU Med ical mg tablet CTIONS. Branch Take 500 mg day 1, then 250 mg days 2 to 5. Nitrofurant 2020-0 Yes [id number] 100mg Take 1 [facility] 4-20 capsule by [facility] 00:00: [place] ([place]CR[place]) 00 (two) Medical 100 mg times Branch capsule daily. azithromyci 2020-0 Yes [id number] 250mg Take 1 [facility] n 4-20 tablet by [facility] of (ZITHROMAX 00:00: mouth [place] Z-SEBAS) 250 00 SEE-INSTRU Med ical mg tablet CTIONS. Branch Take 500 mg day 1, then 250 mg days 2 to 5. Nitrofurant 2020-0 Yes [id number] 100mg Take 1 [facility]. 4-20 capsule by [facility] 00:00: [place] ([place]CR[place]) 00 (two) Medical 100 mg times Branch capsule daily. azithromyci 2020-0 Yes [id number] 250mg Take 1 [facility] n 4-20 tablet by [facility] of (ZITHROMAX 00:00: mouth [place] Z-SEBAS) 250 00 SEE-INSTRU Med ical mg tablet CTIONS. Branch Take 500 mg day 1, then 250 mg days 2 to 5. Nitrofurant 2020-0 Yes [id number] 100mg Take 1 [facility]. 4-20 capsule by [facility] 00:00: [place] ([place]CR[place]) 00 (two) Medical 100 mg times Branch capsule daily. azithromyci 2020-0 Yes [id number] 250mg Take 1 [facility] n 4-20 tablet by [facility] of (ZITHROMAX 00:00: mouth [place] Z-SEBAS) 250 00 SEE-INSTRU Med ical mg tablet CTIONS. Branch Take 500 mg day 1, then 250 mg days 2 to 5. Nitrofurant 2020-0 Yes [id number] 100mg Take 1 [facility]. 4-20 capsule by [facility] 00:00: [place] ([place]CR[place]) 00 (two) Medical 100 mg times Branch capsule daily. azithromyci 2020-0 Yes [id number] 250mg Take 1 [facility] n 4-20 tablet by [facility] of (ZITHROMAX 00:00: mouth [place] Z-SEBAS) 250 00 SEE-INSTRU Med ical mg tablet CTIONS. Branch Take 500 mg day 1, then 250 mg days 2 to 5. Nitrofurant 2020-0 Yes [id number] 100mg Take 1 [facility]. 4-20 capsule by [facility] 00:00: mouth [place] ([place]CR[place]) 00 (two) Medical 100 mg times Branch capsule daily. azithromyci 2020-0 Yes [id number] 250mg Take 1 [facility] n 4-20 tablet by [facility] of (ZITHROMAX 00:00: mouth [place] Z-SEBAS) 250 00 SEE-INSTRU Med ical mg tablet CTIONS. Branch Take 500 mg day 1, then 250 mg days 2 to 5. Nitrofurant 2020-0 Yes [id number] 100mg Take 1 [facility]. 4-20 capsule by [facility] 00:[facility]: [place] ([place]CR[place]) 00 (two) Medical 100 mg times Branch capsule daily. azithromyci 2020-0 Yes [id number] 250mg Take 1 [facility] n 4-20 tablet by [facility] of (ZITHROMAX 00:00: mouth [place] Z-SEBAS) 250 00 SEE-INSTRU Med ical mg tablet CTIONS. Branch Take 500 mg day 1, then 250 mg days 2 to 5. Nitrofurant 2020-0 Yes [id number] 100mg Take 1 [facility]. 4-20 capsule by [facility] 00:00: [place] ([place]CR[place]) 00 (two) Medical 100 mg times Branch capsule daily. azithromyci 2020-0 Yes [id number] 250mg Take 1 [facility] n 4-20 tablet by [facility] of (ZITHROMAX 00:00: mouth [place] Z-SEBAS) 250 00 SEE-INSTRU Med ical mg tablet CTIONS. Branch Take 500 mg day 1, then 250 mg days 2 to 5. Nitrofurant 2020-0 Yes [id number] 100mg Take 1 [facility]. 4-20 capsule by [facility] 00:00: mouth [place] ([place]CR[place]) 00 (two) Medical 100 mg times Branch capsule daily. azithromyci 2020-0 Yes [id number] 250mg Take 1 [facility] n 4-20 tablet by [facility] of (ZITHROMAX 00:00: mouth [place] Z-SEBAS) 250 00 SEE-INSTRU Med ical mg tablet CTIONS. Branch Take 500 mg day 1, then 250 mg days 2 to 5. Nitrofurant 2020-0 Yes [id number] 100mg Take 1 [facility]. 4-20 capsule by [facility] 00:00: mouth [place] ([place]CR[place]) 00 (two) Medical 100 mg times Branch capsule daily. azithromyci 2020-0 Yes [id number] 250mg Take 1 [facility] n 4-20 tablet by [facility] of (ZITHROMAX 00:00: mouth [place] Z-SEBAS) 250 00 SEE-INSTRU Med ical mg tablet CTIONS. Branch Take 500 mg day 1, then 250 mg days 2 to 5. Nitrofurant 2020-0 Yes [id number] 100mg Take 1 [facility]. 4-20 capsule by [facility] 00:00: mouth [place] ([place]CR[place]) 00 (two) Medical 100 mg times Branch capsule daily. azithromyci 2020-0 Yes [id number] 250mg Take 1 [facility] n 4-20 tablet by it[facility] of (ZITHROMAX 00:00: mouth [place] Z-SEBAS) 250 00 SEE-INSTRU Med ical mg tablet CTIONS. Branch Take 500 mg day 1, then 250 mg days 2 to 5. Nitrofurant 2020-0 Yes [id number] 100mg Take 1 [facility]. 4-20 capsule by [facility] 00:00: mouth [place] ([place]CR[place]) 00 (two) Medical 100 mg times Branch capsule daily. azithromyci 2020-0 Yes [id number] 250mg Take 1 [facility] n 4-20 tablet by [facility]y of (ZITHROMAX 00:00: mouth [place] Z-SEBAS) 250 00 SEE-INSTRU Med ical mg tablet CTIONS. Branch Take 500 mg day 1, then 250 mg days 2 to 5. Nitrofurant 2020-0 Yes [id number] 100mg Take 1 [facility]. 4-20 capsule by [facility] 00:00: mouth [place] ([place]CR[place]) 00 (two) Medical 100 mg times Branch capsule daily. azithromyci 2020-0 Yes [id number] 250mg Take 1 [facility] n 4-20 tablet by [facility] of (ZITHROMAX 00:00: mouth [place] Z-SEBAS) 250 00 SEE-INSTRU Med ical mg tablet CTIONS. Branch Take 500 mg day 1, then 250 mg days 2 to 5. Nitrofurant 2020-0 Yes [id number] 100mg Take 1 [facility]. 4-20 capsule by [facility] 00:00: mouth [place] ([place]CR[place]) 00 (two) Medical 100 mg times Branch capsule daily. azithromyci 2020-0 Yes [id number] 250mg Take 1 [facility] n 4-20 tablet by [facility] of (ZITHROMAX 00:00: mouth [place] Z-SEBAS) 250 00 SEE-INSTRU Med ical mg tablet CTIONS. Branch Take 500 mg day 1, then 250 mg days 2 to 5. Nitrofurant 2020-0 Yes [id number] 100mg Take 1 [facility]it. 4-20 capsule by [facility] 00:00: mouth [place] ([place]CR[place]) 00 (two) Medical 100 mg times Branch capsule daily. azithromyci 2020-0 Yes [id number] 250mg Take 1 [facility] n 4-20 tablet by it[facility] of (ZITHROMAX 00:00: mouth [place] Z-SEBAS) 250 00 SEE-INSTRU Med ical mg tablet CTIONS. Branch Take 500 mg day 1, then 250 mg days 2 to 5. Nitrofurant 2020-0 Yes [id number] 100mg Take 1 [facility]it. 4-20 capsule by [facility] o [facility] 00:00: mouth [place] ([place]CR[place]) 00 (two) Medical 100 mg times Branch capsule daily. azithromyci 2020-0 Yes [id number] 250mg Take 1 [facility] n 4-20 tablet by [facility]y of (ZITHROMAX 00:00: mouth [place] Z-SEBAS) 250 00 SEE-INSTRU Med ical mg tablet CTIONS. Branch Take 500 mg day 1, then 250 mg days 2 to 5. Nitrofurant 2020-0 Yes [id number] 100mg Take 1 [facility]it. 4-20 capsule by [facility] 00:00: mouth [place] ([place]CR[place]) 00 (two) Medical 100 mg times Branch capsule daily. azithromyci 2020-0 Yes [id number] 250mg Take 1 [facility] n 4-20 tablet by it[facility] of (ZITHROMAX 00:00: mouth [place] Z-SEBAS) 250 00 SEE-INSTRU Med ical mg tablet CTIONS. Branch Take 500 mg day 1, then 250 mg days 2 to 5. azithromyci 2020-0 Yes [id number] 250mg Take 1 [facility] 4-20 tablet by [facility] of (ZITHROMAX 00:00: mouth [place] Z-SEBAS) 250 00 SEE-INSTRU Med ical mg tablet CTIONS. Branch Take 500 mg day 1, then 250 mg days 2 to 5. Nitrofurant 2020-0 Yes [id number] 100mg Take 1 [facility]in[facility]it. 4-20 capsule by [facility] 00:[facility]: mouth [place] ([place]CR[place]) 00 (two) Medical 100 mg times Branch capsule daily. Nitrofurant 2020-0 Yes [id number] 100mg Take 1 [facility]in[facility]it. 4-20 capsule by [facility] o [facility] 00:00: mouth [place] ([place]CR[place]) 00 (two) Medical 100 mg times Branch capsule daily. azithromyci 2020-0 Yes [id number] 250mg Take 1 [facility] n 4-20 tablet by ity of (ZITHROMAX 00:00: mouth [place] Z-SEBAS) 250 00 SEE-INSTRU Med ical mg tablet CTIONS. Branch Take 500 mg day 1, then 250 mg days 2 to 5. Nitrofurant 2020-0 Yes [id number] 100mg Take 1 [facility]in[facility]it. 4-20 capsule by [facility] o [facility] 00:00: mouth [place] ([place]CR[place]) 00 (two) Medical 100 mg times Branch capsule daily. azithromyci 2020-0 Yes [id number] 250mg Take 1 [facility] n 4-20 tablet by ity of (ZITHROMAX 00:00: mouth [place] Z-SEBAS) 250 00 SEE-INSTRU Med ical mg tablet CTIONS. Branch Take 500 mg day 1, then 250 mg days 2 to 5. Nitrofurant 2020-0 Yes [id number] 100mg Take 1 [facility] oin&Nit. 4-20 capsule by [facility] o [facility] 00:00: mouth [place] ([place]CR[place]) 00 (two) Medical 100 mg times Branch capsule daily. azithromyci 2020-0 Yes [id number] 250mg Take 1 [facility] n 4-20 tablet by ity of (ZITHROMAX 00:00: mouth [place] Z-SEBAS) 250 00 SEE-INSTRU Med ical mg tablet CTIONS. Branch Take 500 mg day 1, then 250 mg days 2 to 5. Nitrofurant 2020-0 Yes [id number] 100mg Take 1 [facility]in&[facility]it. 4-20 capsule by [facility] o [facility] 00:00: mouth [place] ([place]CR[place]) 00 (two) Medical 100 mg times Branch capsule daily. azithromyci 2020-0 Yes [id number] 250mg Take 1 [facility] n 4-20 tablet by ity of (ZITHROMAX 00:00: mouth [place] Z-SEBAS) 250 00 SEE-INSTRU Med ical mg tablet CTIONS. Branch Take 500 mg day 1, then 250 mg days 2 to 5. Nitrofurant 2020-0 Yes [id number] 100mg Take 1 [facility] oin&[facility]it. 4-20 capsule by [facility] o [facility] 00:[facility]: mouth [place] ([place]CR[place]) 00 (two) Medical 100 mg times Branch capsule daily. azithromyci 2020-0 Yes [id number] 250mg Take 1 [facility] n 4-20 tablet by ity of (ZITHROMAX 00:00: mouth [place] Z-SEBAS) 250 00 SEE-INSTRU Med ical mg tablet CTIONS. Branch Take 500 mg day 1, then 250 mg days 2 to 5. Nitrofurant 2020-0 Yes [id number] 100mg Take 1 [facility] oin&Nit. 4-20 capsule by [facility] o [facility] 00:[place]: [place] ([place]CR[place]) 00 (two) Medical 100 mg times Branch capsule daily. azithromyci 2020-0 Yes [id number] 250mg Take 1 [facility] n 4-20 tablet by ity of (ZITHROMAX 00:00: mouth [place] Z-SEBAS) 250 00 SEE-INSTRU Med ical mg tablet CTIONS. Branch Take 500 mg day 1, then 250 mg days 2 to 5. Nitrofurant 2020-0 Yes [id number] 100mg Take 1 [facility] oin&Nit. 4-20 capsule by [facility] 00:[place]: [place] ([place]CR[place]) 00 (two) Medical 100 mg times Branch capsule daily. azithromyci 2020- Yes [id number] 250mg Take 1 [facility] n 4-20 tablet by ity of (ZITHROMAX 00:00: mouth [place] Z-SEBAS) 250 00 SEE-INSTRU Med ical mg tablet CTIONS. Branch Take 500 mg day 1, then 250 mg days 2 to 5. Nitrofurant Yes [id number] 100mg Take 1 [facility] oin&[facility]it. 4-20 capsule by [facility] [place]: [place] ([place] 00 (two) Medical 100 mg times Branch capsule daily. vit 2019-0 Yes 2{capsu Take 2 [facility] C/E/Zn/natividad 9-27 le} capsules ity of r/lutein/ze 17:09: by mouth [place] 07 daily. Medical (PRESERVISI Branch ON AREDS-2 ORAL) vit 2019-0 Yes 2{capsu Take 2 [facility] C/E/Zn/natviidad 9-27 le} capsules ity of r/lutein/ze 17:09: [...] kelsey mine-pseudo 1-22 ity of ephedrine-D 00:00: [facility] [place] [facility] (BROMFED 00 Medical DM) 2-30-10 Branch mg/5 mL syrup bromphenira 2015-07 Yes Ruiz kelsey mine-pseudo 1-22 ity of ephedrine-D 00:00: [facility] [place] [facility] (BROMFED 00 Medical DM) 2-30-10 Branch mg/5 mL syrup bromphenira 2015-07 Yes [facility] [place] mine-pseudo 1-22 ity of ephedrine-D 00:00: [facility] [place] [facility] (BROMFED 00 Medical DM) 2-30-10 Branch mg/5 mL syrup bromphenira 2015-07 Yes [facility] [place] mine-pseudo 1-22 ity of ephedrine-D 00:00: [facility] [place] [facility] (BROMFED 00 Medical DM) 2-30-10 Branch mg/5 mL syrup bromphenira 2015-07 Yes [facility] k[place]sey mine-pseudo 1-22 ity of ephedrine-D 00:00: [facility] [place] [facility] (BROMFED 00 Medical DM) 2-30-10 Branch mg/5 mL syrup bromphenira 2015-07 Yes [facility] k[place]sey mine-pseudo 1-22 ity of ephedrine-D 00:00: [facility] [place] [facility] (BROMFED 00 Medical DM) 2-30-10 Branch mg/5 mL syrup bromphenira 2015-07 Yes Univer s mine-pseudo 1-22 ity of ephedrine-D 00:00: [facility] [place] [facility] (BROMFED 00 Medical DM) 2-30-10 Branch mg/5 mL syrup bromphenira 2016- Yes [facility] kelsey mine-pseudo 1-22 ity of ephedrine-D 00:00: [facility] [place] [facility] (BROMFED 00 Medical DM) 2-30-10 Branch mg/5 mL syrup bromphenira 2016 Yes [facility] k[place]sey mine-pseudo 1-22 ity of ephedrine-D 00:00: [facility] [place] [facility] (BROMFED 00 Medical DM) 2-30-10 Branch mg/5 mL syrup bromphenira 2016- Yes [place] kelsey mine-pseudo 1-22 ity of ephedrine-D 00:00: [facility] [place] [facility] (BROMFED 00 Medical DM) 2-30-10 Branch mg/5 mL syrup bromphenira 2015-07 Yes [place] mine-pseudo 1-22 ity of ephedrine-D 00:00: [facility] [place] [facility] (BROMFED 00 Medical DM) 2-30-10 Branch mg/5 mL syrup bromphenira 2015-07 Yes [place] mine-pseudo 1-22 ity of ephedrine-D 00:00: [facility] [place] [facility] (BROMFED 00 Medical DM) 2-30-10 Branch mg/5 mL syrup bromphenira 2016- Yes [place] k[place] mine-pseudo 1-22 ity of ephedrine-D 00:00: [facility] [place] [facility] (BROMFED 00 Medical DM) 2-30-10 Branch mg/5 mL syrup bromphenira 2016- Yes [place] k[place] mine-pseudo 1-22 ity of ephedrine-D 00:00: [facility] [place] [facility] (BROMFED 00 Medical DM) 2-30-10 Branch mg/5 mL syrup bromphenira 2015- Yes [place] k[place] mine-pseudo 1-22 ity of ephedrine-D 00:00: [facility] [place] [facility] (BROMFED 00 Medical DM) 2-30-10 Branch mg/5 mL syrup bromphenira 2015- Yes [place] k[place]sey mine-pseudo 1-22 ity of ephedrine-D 00:00: [facility] [place] [facility] (BROMFED 00 Medical DM) 2-30-10 Branch mg/5 mL syrup bromphenira 2015- Yes [place] k[place] mine-pseudo 1-22 ity of ephedrine-D 00:00: [facility] [place] [facility] (BROMFED 00 Medical DM) 2-30-10 Branch mg/5 mL syrup bromphenira 2016- Yes [place] k[place] mine-pseudo 1-22 ity of ephedrine-D 00:00: [facility] [place] [facility] (BROMFED 00 Medical DM) 2-30-10 Branch mg/5 mL syrup bromphenira 2016- Yes [place] k[place]sey mine-pseudo 1-22 ity of ephedrine-D 00:00: [facility] [place] [facility] (BROMFED 00 Medical DM) 2-30-10 Branch mg/5 mL syrup bromphenira 2016- Yes [place] k[place]sey mine-pseudo 1-22 ity of ephedrine-D 00:00: [facility] [place] [facility] (BROMFED 00 Medical DM) 2-30-10 Branch mg/5 mL syrup bromphenira 2015- Yes [place] mine-pseudo 1-22 ity of ephedrine-D 00:00: [facility] [place] [facility] (BROMFED 00 Medical DM) 2-30-10 Branch mg/5 mL syrup bromphenira 2016- Yes [place] k[place] mine-pseudo 1-22 ity of ephedrine-D 00:00: [facility] [place] [facility] (BROMFED 00 Medical DM) 2-30-10 Branch mg/5 mL syrup bromphenira 2016- Yes [place] k[place] mine-pseudo 1-22 ity of ephedrine-D 00:00: [facility] [place] [facility] (BROMFED 00 Medical DM) 2-30-10 Branch mg/5 mL syrup bromphenira 2016- Yes [place] kelsey mine-pseudo 1-22 ity of ephedrine-D 00:00: [facility] [place] [facility] (BROMFED 00 Medical DM) 2-30-10 Branch mg/5 mL syrup bromphenira 2016- Yes [place] k[place]sey mine-pseudo 1-22 ity of ephedrine-D 00:00: [facility] [place] [facility] (BROMFED 00 Medical DM) 2-30-10 Branch mg/5 mL syrup bromphenira 2016- Yes [place] k[place] mine-pseudo 1-22 ity of ephedrine-D 00:00: [facility] [place] [facility] (BROMFED 00 Medical DM) 2-30-10 Branch mg/5 mL syrup bromphenira 2015- Yes [place] k[place]sey mine-pseudo 1-22 ity of ephedrine-D 00:00: [facility] (BROMFED 00 Medical DM) 2-30-10 Branch mg/5 mL syrup bromphenira 2015-07 Yes Univer s mine-pseudo 1-22 ity of ephedrine-D 00:00: [facility] [place] [facility] (BROMFED 00 Medical DM) 2-30-10 Branch mg/5 mL syrup bromphenira 2015-07 Yes Univer s mine-pseudo 1-22 ity of ephedrine-D 00:00: [facility] [place] [facility] (BROMFED 00 Medical DM) 2-30-10 Branch mg/5 mL syrup bromphenira 2015-07 2023- No Unive rs mine-pseudo 1-22 06-06 ity of ephedrine-D 00:00: 00:00 [facility] [place] [facility] (BROMFED 00 :00 Medical DM) 2-30-10 [...] [place] meals. [facility] hydralAZINE 2014-07 Yes 3 (three) U nivers (APRESOLINE 0-26 times ity of ) 50 mg 00:00: daily [place] tablet 00 meals. [facility] hydralAZINE 2014-07 Yes 3 (three) U nivers (APRESOLINE 0-26 times ity of ) 50 mg 00:00: daily [place] tablet 00 meals. [facility] hydralAZINE 2014-07 Yes 3 (three) U nivers (APRESOLINE 0-26 times ity of ) 50 mg 00:00: daily [place] tablet 00 meals. [facility] hydralAZINE 2014-07 Yes 3 (three) U nivers (APRESOLINE 0-26 times ity of ) 50 mg 00:00: daily [place] tablet 00 meals. [facility] hydralAZINE 2014-07 Yes 3 (three) U nivers (APRESOLINE 0-26 times ity of ) 50 mg 00:00: daily [place] tablet 00 meals. [facility] hydralAZINE 2014-07 Yes 3 (three) U nivers (APRESOLINE 0-26 times ity of ) 50 mg 00:00: daily [place] tablet 00 meals. [facility] Branch hydralAZINE 2014-07 Yes 3 (three) U nivers (APRESOLINE 0-26 times ity of ) 50 mg 00:00: daily [place] tablet 00 meals. [facility] hydralAZINE 2014-07 Yes 3 (three) U nivers (APRESOLINE 0-26 times ity of ) 50 mg 00:00: daily [place] tablet 00 meals. [facility] hydralAZINE 2014-07 Yes 3 (three) U [...] tablet 00 the Medical morning. Branch hydrochloro 2014-07- No Unive rs thiazide [...] 00 every Medical tablet morning. Branch FLUoxetine Yes 40mg Take 1 [...] 8-27 ity of mg capsule 00:00: [place] 00 Medical Branch FLUoxetine 2015-0 Yes Univers (PROZAC) 40 8-27 ity of mg capsule 00:00: [place] 00 Medical Branch FLUoxetine 2014-0 Yes [facility] (PROZAC) 40 8-27 ity of mg capsule 00:00: [place] 00 Medical Branch FLUoxetine 2014-0 Yes [facility] (PROZAC) 40 8-27 ity of mg capsule 00:00: [place] 00 Medical Branch FLUoxetine 2014-0 Yes [facility] (PROZAC) 40 8-27 ity of mg capsule 00:00: [place] [facility] FLUoxetine 2015-0 Yes Univers (PROZAC) 40 8-27 ity of mg capsule 00:00: [place] [facility] FLUoxetine 2015-0 Yes Univers (PROZAC) 40 8-27 ity of mg capsule 00:00: [place] [facility] Branch FLUoxetine 2015-0 Yes Univers (PROZAC) 40 8-27 ity of mg capsule 00:00: [place] [facility] FLUoxetine 2015-0 Yes Univers (PROZAC) 40 8-27 ity of mg capsule 00:00: [place] [facility] FLUoxetine 2014-0 Yes Univers (PROZAC) 40 8-27 ity of mg capsule 00:00: [place] [facility] FLUoxetine 2014-0 Yes Univers (PROZAC) 40 8-27 ity of mg capsule 00:00: [place] [facility] FLUoxetine 2014-0 Yes Univers (PROZAC) 40 8-27 ity of mg capsule 00:00: [place] [facility] FLUoxetine 2015-0 Yes Univers (PROZAC) 40 8-27 ity of mg capsule 00:00: [place] [facility] FLUoxetine 2014-0 Yes Univers (PROZAC) 40 8-27 ity of mg capsule 00:00: [place] [facility] FLUoxetine 2015-0 Yes Univers (PROZAC) 40 8-27 ity of mg capsule 00:00: [place] [facility] FLUoxetine 2015-0 Yes Univers (PROZAC) 40 8-27 ity of mg capsule 00:00: [place] [facility] FLUoxetine 2015-0 Yes Univers (PROZAC) 40 8-27 ity of mg capsule 00:00: [place] 00 [facility] FLUoxetine 2015-0 Yes 40mg Take 1 Unive [...] 8-27 ity of mg capsule 00:00: [place] 00 Medical Branch FLUoxetine 2015-0 Yes Univers (PROZAC) 40 8-27 ity of mg capsule 00:00: [place] 00 Medical Branch FLUoxetine 2015-0 Yes [facility] [...] Completed Unive rsity of VACCINE, BIVALENT 00:00:00 [facility] [place] [facility] edical (MODERNA BOOSTER) Branch SARS-COV-2 COVID-19 2022-03-25 Completed Unive rsity of VACCINE, BIVALENT 00:00:00 [facility] [place] [facility] edical (MODERNA BOOSTER) Branch SARS-COV-2 COVID-19 2022-03-25 Completed Unive rsity of VACCINE, BIVALENT 00:00:00 [place] [facility] edical (MODERNA BOOSTER) Branch SARS-COV-2 COVID-19 2022-03-25 Completed Unive rsity of VACCINE, BIVALENT 00:00:00 [place] [facility] edical (MODERNA BOOSTER) Branch SARS-COV-2 COVID-19 2022-03-25 Completed Unive rsity of VACCINE, BIVALENT 00:00:00 [place] [facility] edical (MODERNA BOOSTER) Branch SARS-COV-2 COVID-19 2022-03-25 Completed Unive rsity of VACCINE, BIVALENT 00:00:00 [place] [facility] edical (MODERNA BOOSTER) Branch SARS-COV-2 COVID-19 2022-03-25 Completed Unive rsity of VACCINE, BIVALENT 00:00:00 [place] [facility] edical (MODERNA BOOSTER) Branch SARS-COV-2 COVID-19 [...] Completed Unive rsity of VACCINE, BIVALENT 00:00:00 [facility] [place] [facility] edical (MODERNA BOOSTER) Branch SARS-COV-2 COVID-19 2022-03-25 Completed Unive rsity of VACCINE, BIVALENT 00:00:00 [facility] [place] [facility] edical (MODERNA BOOSTER) Branch SARS-COV-2 COVID-19 2021-05-18 Completed Unive rsity of VACCINE - (MODERNA) 00:00:00 [facility] Branch SARS-COV-2 COVID-19 2021-05-18 Completed Unive rsity of VACCINE - (MODERNA) 00:00:00 [facility] Branch SARS-COV-2 COVID-19 2021-05-18 Completed Unive rsity of VACCINE - (MODERNA) 00:00:00 [facility] Branch SARS-COV-2 COVID-19 2021-05-18 Completed Unive rsity of VACCINE - (MODERNA) 00:00:00 [facility] SARS-COV-2 COVID-19 2021-05-18 Completed Unive rsity of VACCINE - (MODERNA) 00:00:00 [facility] Branch SARS-COV-2 COVID-19 2021-05-18 Completed Unive rsity of VACCINE - (MODERNA) 00:00:00 [facility] SARS-COV-2 COVID-19 2021-05-18 Completed Unive rsity of VACCINE - (MODERNA) 00:00:00 [facility] Branch SARS-COV-2 COVID-19 2021-05-18 Completed Unive rsity of VACCINE - (MODERNA) 00:00:00 [facility] SARS-COV-2 COVID-19 2021-05-18 Completed Unive rsity of VACCINE - (MODERNA) 00:00:00 [facility] Branch SARS-COV-2 COVID-19 2021-05-18 Completed Unive rsity of VACCINE - (MODERNA) 00:00:00 [facility] SARS-COV-2 COVID-19 2021-05-18 Completed Unive rsity of VACCINE - (MODERNA) 00:00:00 [facility] Branch SARS-COV-2 COVID-19 2021-05-18 Completed Unive rsity of VACCINE - (MODERNA) 00:00:00 [facility] SARS-COV-2 COVID-19 2021-05-18 Completed Unive rsity of VACCINE - (MODERNA) 00:00:00 [facility] SARS-COV-2 COVID-19 2021-05-18 Completed Unive rsity of VACCINE - (MODERNA) 00:00:00 [facility] Branch SARS-COV-2 COVID-19 2021-05-18 Completed Unive rsity of VACCINE - (MODERNA) 00:00:00 [facility] SARS-COV-2 COVID-19 2021-05-18 Completed Unive rsity of VACCINE - (MODERNA) 00:00:00 [facility] Branch SARS-COV-2 COVID-19 2021-05-18 Completed Unive rsity of VACCINE - (MODERNA) 00:00:00 [facility] SARS-COV-2 COVID-19 2021-05-18 Completed Unive rsity of VACCINE - (MODERNA) 00:00:00 [facility] SARS-COV-2 COVID-19 2021-05-18 Completed Unive rsity of VACCINE - (MODERNA) 00:00:00 [facility] SARS-COV-2 COVID-19 2021-05-18 Completed Unive rsity of VACCINE - (MODERNA) 00:00:00 [facility] SARS-COV-2 COVID-19 2021-05-18 Completed Unive rsity of VACCINE - (MODERNA) 00:00:00 [facility] SARS-COV-2 COVID-19 2021-05-18 Completed Unive rsity of VACCINE - (MODERNA) 00:00:00 [facility] SARS-COV-2 COVID-19 2021-05-18 Completed Unive rsity of VACCINE - (MODERNA) 00:00:00 [facility] SARS-COV-2 COVID-19 2021-05-18 Completed Unive rsity of VACCINE - (MODERNA) 00:00:00 [facility] SARS-COV-2 COVID-19 2021-05-18 Completed Unive rsity of VACCINE - (MODERNA) 00:00:00 [facility] SARS-COV-2 COVID-19 2021-05-18 Completed Unive rsity of VACCINE - (MODERNA) 00:00:00 [facility] SARS-COV-2 COVID-19 2021-05-18 Completed Unive rsity of VACCINE - (MODERNA) 00:00:00 [facility] SARS-COV-2 COVID-19 2021-05-18 Completed Unive rsity of VACCINE - (MODERNA) 00:00:00 [facility] SARS-COV-2 COVID-19 2021-05-18 Completed Unive rsity of VACCINE - (MODERNA) 00:00:00 [facility] SARS-COV-2 COVID-19 2021-05-18 Completed Unive rsity of VACCINE - (MODERNA) 00:00:00 [facility] Branch SARS-COV-2 COVID-19 2021-05-18 Completed Unive rsity of VACCINE - (MODERNA) 00:00:00 [facility] SARS-COV-2 COVID-19 2021-05-18 Completed Unive rsity of VACCINE - (MODERNA) 00:00:00 [facility] SARS-COV-2 COVID-19 2021-05-18 Completed Unive rsity of VACCINE - (MODERNA) 00:00:00 [facility] SARS-COV-2 COVID-19 2021-05-18 Completed Unive rsity of VACCINE - (MODERNA) 00:00:00 [facility] SARS-COV-2 COVID-19 2021-05-18 Completed Unive rsity of VACCINE - (MODERNA) 00:00:00 [facility] Influenza High Dose 2021-04-22 Completed Unive rsity of 00:00:00 [facility] Influenza High Dose 2021-04-22 Completed Unive rsity of [place] 00:00:00 [facility] Influenza High Dose 2021-04-22 Completed Unive rsity of 00:00:00 [facility] Influenza High Dose 2021-04-22 Completed Unive rsity of [place] 00:00:00 [facility] Influenza High Dose 2021-04-22 Completed Unive rsity of 00:00:00 [facility] Influenza High Dose 2021-04-22 Completed Unive rsity of [place] 00:00:00 [facility] Branch Influenza High Dose 2021-04-22 Completed Unive rsity of 00:00:00 [facility] Influenza High Dose 2021-04-22 Completed Unive rsity of [place] 00:00:00 [facility] Influenza High Dose 2021-04-22 Completed Unive rsity of 00:00:00 [facility] Influenza High Dose 2021-04-22 Completed Unive rsity [...] of [place] 00:00:00 [facility] Branch Influenza High Dose 2021-04-22 Completed Unive rsity of 00:00:00 [facility] Branch Influenza High Dose 2021-04-22 Completed Unive [...] of [place] 00:00:00 [facility] Branch Influenza High Dose 2021-04-22 Completed Unive rsity of 00:00:00 [place] [facility] Influenza High Dose 2021-04-22 Completed Unive rsity of [place] 00:00:00 [facility] Branch Influenza High Dose 2021-04-22 Completed Unive rsity of 00:00:00 [facility] Branch Influenza High Dose 2021-04-22 Completed Unive rsity of [place] 00:00:00 [facility] SARS-COV-2 COVID-19 2020-09-02 Completed Unive rsity of VACCINE - (MODERNA) 00:00:00 [facility] SARS-COV-2 COVID-19 2020-09-02 Completed Unive rsity of VACCINE - (MODERNA) 00:00:00 [facility] SARS-COV-2 COVID-19 2020-09-02 Completed Unive rsity of VACCINE - (MODERNA) 00:00:00 [facility] SARS-COV-2 COVID-19 2020-09-02 Completed Unive rsity of VACCINE - (MODERNA) 00:00:00 [facility] SARS-COV-2 COVID-19 2020-09-02 Completed Unive rsity of VACCINE - (MODERNA) 00:00:00 [facility] Branch SARS-COV-2 COVID-19 2020-09-02 Completed Unive rsity of VACCINE - (MODERNA) 00:00:00 [facility] SARS-COV-2 COVID-19 2020-09-02 Completed Unive rsity of VACCINE - (MODERNA) 00:00:00 [facility] SARS-COV-2 COVID-19 2020-09-02 Completed Unive rsity of VACCINE - (MODERNA) 00:00:00 [facility] SARS-COV-2 COVID-19 2020-09-02 Completed Unive rsity of VACCINE - (MODERNA) 00:00:00 [facility] SARS-COV-2 COVID-19 2020-09-02 Completed Unive rsity of VACCINE - (MODERNA) 00:00:00 [facility] SARS-COV-2 COVID-19 2020-09-02 Completed Unive rsity of VACCINE - (MODERNA) 00:00:00 [facility] SARS-COV-2 COVID-19 2020-09-02 Completed Unive rsity of VACCINE - (MODERNA) 00:00:00 [facility] Branch SARS-COV-2 COVID-19 2020-09-02 Completed Unive rsity of VACCINE - (MODERNA) 00:00:00 [facility] SARS-COV-2 COVID-19 2020-09-02 Completed Unive rsity of VACCINE - (MODERNA) 00:00:00 [facility] Branch SARS-COV-2 COVID-19 2020-09-02 Completed Unive rsity of VACCINE - (MODERNA) 00:00:00 [facility] SARS-COV-2 COVID-19 2020-09-02 Completed Unive rsity of VACCINE - (MODERNA) 00:00:00 [facility] Branch SARS-COV-2 COVID-19 2020-09-02 Completed Unive rsity of VACCINE - (MODERNA) 00:00:00 [facility] Branch SARS-COV-2 COVID-19 2020-09-02 Completed Unive rsity of VACCINE - (MODERNA) 00:00:00 [facility] Branch SARS-COV-2 COVID-19 2020-09-02 Completed Unive rsity of VACCINE - (MODERNA) 00:00:00 [facility] Branch SARS-COV-2 COVID-19 2020-09-02 Completed Unive rsity of VACCINE - (MODERNA) 00:00:00 [facility] Branch SARS-COV-2 COVID-19 2020-09-02 Completed Unive rsity of VACCINE - (MODERNA) 00:00:00 [facility] Branch SARS-COV-2 COVID-19 2020-09-02 Completed Unive rsity of VACCINE - (MODERNA) 00:00:00 [facility] SARS-COV-2 COVID-19 2020-09-02 Completed Unive rsity of VACCINE - (MODERNA) 00:00:00 [facility] Branch SARS-COV-2 COVID-19 2020-09-02 Completed Unive rsity of VACCINE - (MODERNA) 00:00:00 [facility] Branch SARS-COV-2 COVID-19 2020-09-02 Completed Unive rsity of VACCINE - (MODERNA) 00:00:00 [facility] Branch SARS-COV-2 COVID-19 2020-09-02 Completed Unive rsity of VACCINE - (MODERNA) 00:00:00 [facility] Branch SARS-COV-2 COVID-19 2020-09-02 Completed Unive rsity of VACCINE - (MODERNA) 00:00:00 [facility] Branch SARS-COV-2 COVID-19 2020-09-02 Completed Unive rsity of VACCINE - (MODERNA) 00:00:00 [facility] Branch SARS-COV-2 COVID-19 2020-09-02 Completed Unive rsity of VACCINE - (MODERNA) 00:00:00 [facility] Branch SARS-COV-2 COVID-19 2020-09-02 Completed Unive rsity of VACCINE - (MODERNA) 00:00:00 [facility] Branch SARS-COV-2 COVID-19 2020-09-02 Completed Unive rsity of VACCINE - (MODERNA) 00:00:00 [facility] SARS-COV-2 COVID-19 2020-09-02 Completed Unive rsity of VACCINE - (MODERNA) 00:00:00 [facility] Branch SARS-COV-2 COVID-19 2020-09-02 Completed Unive rsity of VACCINE - (MODERNA) 00:00:00 [facility] SARS-COV-2 COVID-19 2020-09-02 Completed Unive rsity of VACCINE - (MODERNA) 00:00:00 [facility] SARS-COV-2 COVID-19 2020-09-02 Completed Unive rsity of VACCINE - (MODERNA) 00:00:00 [facility] SARS-COV-2 COVID-19 2020-08-05 Completed Unive rsity of VACCINE - (MODERNA) 00:00:00 [facility] SARS-COV-2 COVID-19 2020-08-05 Completed Unive rsity of VACCINE - (MODERNA) 00:00:00 [facility] SARS-COV-2 COVID-19 2020-08-05 Completed Unive rsity of VACCINE - (MODERNA) 00:00:00 [facility] SARS-COV-2 COVID-19 2020-08-05 Completed Unive rsity of VACCINE - (MODERNA) 00:00:00 [facility] SARS-COV-2 COVID-19 2020-08-05 Completed Unive rsity of VACCINE - (MODERNA) 00:00:00 [facility] SARS-COV-2 COVID-19 2020-08-05 Completed Unive rsity of VACCINE - (MODERNA) 00:00:00 [facility] Branch SARS-COV-2 COVID-19 2020-08-05 Completed Unive rsity of VACCINE - (MODERNA) 00:00:00 [facility] SARS-COV-2 COVID-19 2020-08-05 Completed Unive rsity of VACCINE - (MODERNA) 00:00:00 [facility] Branch SARS-COV-2 COVID-19 2020-08-05 Completed Unive rsity of VACCINE - (MODERNA) 00:00:00 [facility] SARS-COV-2 COVID-19 2020-08-05 Completed Unive rsity of VACCINE - (MODERNA) 00:00:00 [facility] SARS-COV-2 COVID-19 2020-08-05 Completed Unive rsity of VACCINE - (MODERNA) 00:00:00 [facility] Branch SARS-COV-2 COVID-19 2020-08-05 Completed Unive rsity of VACCINE - (MODERNA) 00:00:00 [facility] SARS-COV-2 COVID-19 2020-08-05 Completed Unive rsity of VACCINE - (MODERNA) 00:00:00 [facility] Branch SARS-COV-2 COVID-19 2020-08-05 Completed Unive rsity of VACCINE - (MODERNA) 00:00:00 [facility] SARS-COV-2 COVID-19 2020-08-05 Completed Unive rsity of VACCINE - (MODERNA) 00:00:00 [facility] SARS-COV-2 COVID-19 2020-08-05 Completed Unive rsity of VACCINE - (MODERNA) 00:00:00 [facility] SARS-COV-2 COVID-19 2020-08-05 Completed Unive rsity of VACCINE - (MODERNA) 00:00:00 [facility] SARS-COV-2 COVID-19 2020-08-05 Completed Unive rsity of VACCINE - (MODERNA) 00:00:00 [facility] SARS-COV-2 COVID-19 2020-08-05 Completed Unive rsity of VACCINE - (MODERNA) 00:00:00 [facility] SARS-COV-2 COVID-19 2020-08-05 Completed Unive rsity of VACCINE - (MODERNA) 00:00:00 [facility] SARS-COV-2 COVID-19 2020-08-05 Completed Unive rsity of VACCINE - (MODERNA) 00:00:00 [facility] SARS-COV-2 COVID-19 2020-08-05 Completed Unive rsity of VACCINE - (MODERNA) 00:00:00 [facility] SARS-COV-2 COVID-19 2020-08-05 Completed Unive rsity of VACCINE - (MODERNA) 00:00:00 [facility] SARS-COV-2 COVID-19 2020-08-05 Completed Unive rsity of VACCINE - (MODERNA) 00:00:00 [facility] SARS-COV-2 COVID-19 2020-08-05 Completed Unive rsity of VACCINE - (MODERNA) 00:00:00 [facility] SARS-COV-2 COVID-19 2020-08-05 Completed Unive rsity of VACCINE - (MODERNA) 00:00:00 [facility] SARS-COV-2 COVID-19 2020-08-05 Completed Unive rsity of VACCINE - (MODERNA) 00:00:00 [facility] SARS-COV-2 COVID-19 2020-08-05 Completed Unive rsity of VACCINE - (MODERNA) 00:00:00 [facility] SARS-COV-2 COVID-19 2020-08-05 Completed Unive rsity of VACCINE - (MODERNA) 00:00:00 [facility] SARS-COV-2 COVID-19 2020-08-05 Completed Unive rsity of VACCINE - (MODERNA) 00:00:00 [facility] SARS-COV-2 COVID-19 2020-08-05 Completed Unive rsity of VACCINE - (MODERNA) 00:00:00 [facility] SARS-COV-2 COVID-19 2020-08-05 Completed Unive rsity of VACCINE - (MODERNA) 00:00:00 [facility] SARS-COV-2 COVID-19 2020-08-05 Completed Unive rsity of VACCINE - (MODERNA) 00:00:00 [facility] SARS-COV-2 COVID-19 2020-08-05 Completed Unive rsity of VACCINE - (MODERNA) 00:00:00 [facility] SARS-COV-2 COVID-19 2020-08-05 Completed Unive rsity of VACCINE - (MODERNA) 00:00:00 [facility] Influenza High Dose 2020-03-03 Completed [facility] of 00:00:00 [facility] Influenza High Dose 2020-03-03 Completed [facility] of 00:00:00 [facility] Influenza High Dose 2020-03-03 Completed [facility] of 00:00:00 [facility] Influenza High Dose 2020-03-03 Completed [facility] of 00:00:00 [facility] Influenza High Dose 2020-03-03 Completed [facility] rsity of 00:00:00 [facility] Influenza High Dose 2020-03-03 Completed [facility]ity of 00:00:00 [facility] Influenza High Dose 2020-03-03 Completed [facility] rsity of 00:00:00 [facility] Influenza High Dose 2020-03-03 Completed [facility]ity of 00:00:00 [facility] Influenza High Dose 2020-03-03 Completed [facility] of 00:00:00 [facility] Influenza High Dose 2020-03-03 Completed [facility] of 00:00:00 [facility] Influenza High Dose 2020-03-03 Completed [facility] of 00:00:00 [facility] Influenza High Dose 2020-03-03 Completed [facility] rs[facility] of 00:00:00 [facility] Influenza High Dose 2020-03-03 Completed [facility] of 00:00:00 [facility] Influenza High Dose 2020-03-03 Completed [facility] of 00:00:00 [facility] Influenza High Dose 2020-03-03 Completed [facility] of 00:00:00 [facility] Influenza High Dose 2020-03-03 Completed [facility] of 00:00:00 [facility] Influenza High Dose 2020-03-03 Completed [facility] of 00:00:00 [facility] Influenza High Dose 2020-03-03 Completed [facility] of 00:00:00 [facility] Influenza High Dose 2020-03-03 Completed [facility] of 00:00:00 [facility] Influenza High Dose 2020-03-03 Completed [facility] of 00:00:00 [facility] Influenza High Dose 2020-03-03 Completed [facility] of 00:00:00 [facility] Influenza High Dose 2020-03-03 Completed [facility] of 00:00:00 [facility] Influenza High Dose 2020-03-03 Completed [facility] of 00:00:00 [facility] Influenza High Dose 2020-03-03 Completed [facility] of 00:00:00 [facility] Influenza High Dose 2020-03-03 Completed [facility] of 00:00:00 [facility] Influenza High Dose 2020-03-03 Completed [facility] of 00:00:00 [facility] Influenza High Dose 2020-03-03 Completed [facility] of 00:00:00 [facility] Influenza High Dose 2020-03-03 Completed [facility] of 00:00:00 [facility] Influenza High Dose 2020-03-03 Completed [facility] of 00:00:00 [facility] Influenza High Dose 2020-03-03 Completed [facility] of 00:00:00 [facility] Influenza High Dose 2020-03-03 Completed [facility] of 00:00:00 [facility] Influenza High Dose 2020-03-03 Completed [facility] of 00:00:00 [facility] Influenza High Dose 2020-03-03 Completed [facility] of 00:00:00 [facility] Influenza High Dose 2020-03-03 Completed [facility] of 00:00:00 [facility] Influenza High Dose 2020-03-03 Completed [facility] of 00:00:00 [facility] Flu Trivalent 2019-04-04 Completed University of 00:00:00 [facility] Influenza High Dose 2019-04-04 Completed [facility] of 00:00:00 [facility] TDAP 2019-04-04 Completed University of 00:00:00 [facility] Flu Trivalent 2019-04-04 Completed University of 00:00:00 [facility] Influenza High Dose 2019-04-04 Completed [facility] rs[facility] of 00:00:00 [facility] TDAP 2019-04-04 Completed University of 00:00:00 [facility] Flu Trivalent 2019-04-04 Completed University of 00:00:00 [facility] Influenza High Dose 2019-04-04 Completed [facility]ive [facility] of 00:00:00 [facility] TDAP 2019-04-04 Completed University of 00:00:00 [facility] Flu Trivalent 2019-04-04 Completed University of 00:00:00 [facility] Influenza High Dose 2019-04-04 Completed [facility]ive rsity of 00:00:00 [facility] TDAP 2019-04-04 Completed University of 00:00:00 [facility] Flu Trivalent 2019-04-04 Completed University of 00:00:00 [facility] Influenza High Dose 2019-04-04 Completed [facility]ive rsity of 00:00:00 [facility] TDAP 2019-04-04 Completed University of 00:00:00 [facility] Flu Trivalent 2019-04-04 Completed University of 00:00:00 [facility] Influenza High Dose 2019-04-04 Completed [facility]ive rsity of 00:00:00 [facility] TDAP 2019-04-04 Completed University of 00:00:00 [facility] Flu Trivalent 2019-04-04 Completed University of 00:00:00 [facility] Influenza High Dose 2019-04-04 Completed [facility] of 00:00:00 [facility] TDAP 2019-04-04 Completed University of 00:00:00 [facility] Flu Trivalent 2019-04-04 Completed University of 00:00:00 [facility] Influenza High Dose 2019-04-04 Completed [facility] of 00:00:00 [facility] TDAP 2019-04-04 Completed University of 00:00:00 [facility] Flu Trivalent 2019-04-04 Completed University of 00:00:00 [facility] Influenza High Dose 2019-04-04 Completed [facility] of 00:00:00 [facility] TDAP 2019-04-04 Completed University of 00:00:00 [facility] Flu Trivalent 2019-04-04 Completed University of 00:00:00 [facility] Influenza High Dose 2019-04-04 Completed [facility] of 00:00:00 [facility] TDAP 2019-04-04 Completed University of 00:00:00 [facility] Flu Trivalent 2019-04-04 Completed University of 00:00:00 [facility] Influenza High Dose 2019-04-04 Completed [facility] of 00:00:00 [facility] TDAP 2019-04-04 Completed University of 00:00:00 [facility] Flu Trivalent 2019-04-04 Completed University of 00:00:00 [facility] Influenza High Dose 2019-04-04 Completed [facility] of 00:00:00 [facility] TDAP 2019-04-04 Completed University of 00:00:00 [facility] Flu Trivalent 2019-04-04 Completed University of 00:00:00 [facility] Influenza High Dose 2019-04-04 Completed [facility] of 00:00:00 [facility] TDAP 2019-04-04 Completed University of 00:00:00 [facility] Flu Trivalent 2019-04-04 Completed University of 00:00:00 [facility] Influenza High Dose 2019-04-04 Completed [facility] of 00:00:00 [facility] TDAP 2019-04-04 Completed University of 00:00:00 [facility] Flu Trivalent 2019-04-04 Completed University of 00:00:00 [facility] Influenza High Dose 2019-04-04 Completed [facility] of 00:00:00 [facility] TDAP 2019-04-04 Completed University of 00:00:00 [facility] Flu Trivalent 2019-04-04 Completed University of 00:00:00 [facility] Influenza High Dose 2019-04-04 Completed [facility] of 00:00:00 [facility] TDAP 2019-04-04 Completed [facility] of 00:00:00 [facility] TDAP 2019-04-04 Completed [facility] of 00:00:00 [facility] Flu Trivalent 2019-04-04 Completed University of 00:00:00 [facility] Influenza High Dose 2019-04-04 Completed [facility] of 00:00:00 [facility] Flu Trivalent 2019-04-04 Completed University of 00:00:00 [facility] TDAP 2019-04-04 Completed University of 00:00:00 [facility] Flu Trivalent 2019-04-04 Completed University of 00:00:00 [facility] Influenza High Dose 2019-04-04 Completed [facility] of 00:00:00 [facility] Influenza High Dose 2019-04-04 Completed [facility] of 00:00:00 [facility] TDAP 2019-04-04 Completed [facility] of 00:00:00 [facility] Flu Trivalent 2019-04-04 Completed University of 00:00:00 [facility] Influenza High Dose 2019-04-04 Completed [facility] of 00:00:00 [facility] TDAP 2019-04-04 Completed University of 00:00:00 [facility] Flu Trivalent 2019-04-04 Completed University of 00:00:00 [facility] Influenza High Dose 2019-04-04 Completed [facility] of 00:00:00 [facility] TDAP 2019-04-04 Completed [facility] of 00:00:00 [facility] Flu Trivalent 2019-04-04 Completed [facility] of 00:00:00 [facility] Influenza High Dose 2019-04-04 Completed [facility] of 00:00:00 [facility] TDAP 2019-04-04 Completed [facility] of 00:00:00 [facility] Flu Trivalent 2019-04-04 Completed [facility] of 00:00:00 [facility] Influenza High Dose 2019-04-04 Completed [facility] of 00:00:00 [facility] TDAP 2019-04-04 Completed [facility] 00:00:00 [facility] Flu Trivalent 2019-04-04 Completed [facility] 00:00:00 [facility] Influenza High Dose 2019-04-04 Completed [facility] 00:00:00 [facility] TDAP 2019-04-04 Completed [facility] 00:00:00 [facility] Flu Trivalent 2019-04-04 Completed [facility] of 00:00:00 [facility] Influenza High Dose 2019-04-04 Completed [facility] of 00:00:00 [facility] TDAP 2019-04-04 Completed [facility] of 00:00:00 [facility] Flu Trivalent 2019-04-04 Completed [facility] of 00:00:00 [facility] Influenza High Dose 2019-04-04 Completed [facility] of 00:00:00 [facility] TDAP 2019-04-04 Completed [facility] of 00:00:00 [facility] TDAP 2019-04-04 Completed [facility] 00:00:00 [facility] Flu Trivalent 2019-04-04 Completed [facility] 00:00:00 [facility] Influenza High Dose 2019-04-04 Completed [facility] 00:00:00 [facility] TDAP 2019-04-04 Completed [facility] 00:00:00 [facility] Flu Trivalent 2019-04-04 Completed [facility] of 00:00:00 [facility] Flu Trivalent 2019-04-04 Completed [facility] 00:00:00 [facility] Influenza High Dose 2019-04-04 Completed [facility] of 00:00:00 [facility] Influenza High Dose 2019-04-04 Completed [facility] of 00:00:00 [facility] TDAP 2019-04-04 Completed [facility] 00:00:00 [facility] Flu Trivalent 2019-04-04 Completed [facility] of 00:00:00 [facility] Influenza High Dose 2019-04-04 Completed [facility] of 00:00:00 [facility] TDAP 2019-04-04 Completed [facility] of 00:00:00 [facility] Flu Trivalent 2019-04-04 Completed [facility] of 00:00:00 [facility] Influenza High Dose 2019-04-04 Completed [facility] of 00:00:00 [facility] TDAP 2019-04-04 Completed [facility] of 00:00:00 [facility] TDAP 2019-04-04 Completed [facility] of 00:00:00 [facility] Flu Trivalent 2019-04-04 Completed [facility] 00:00:00 [facility] Influenza High Dose 2019-04-04 Completed [facility] of 00:00:00 [facility] TDAP 2019-04-04 Completed [facility] of 00:00:00 [facility] Flu Trivalent 2019-04-04 Completed [facility] of 00:00:00 [facility] Influenza High Dose 2019-04-04 Completed [facility] of 00:00:00 [facility] TDAP 2019-04-04 Completed [facility] of 00:00:00 [facility] Flu Trivalent 2019-04-04 Completed [facility] of 00:00:00 [facility] Influenza High Dose 2019-04-04 Completed [facility] of 00:00:00 [facility] TDAP 2019-04-04 Completed [facility] 00:00:00 [facility] Flu Trivalent 2019-04-04 Completed [facility] 00:00:00 [facility] Influenza High Dose 2019-04-04 Completed [facility] of 00:00:00 [facility] Influenza High Dose 2017-03-03 Completed [facility] of 00:00:00 [facility] Influenza High Dose 2017-03-03 Completed [facility] of 00:00:00 [facility] Influenza High Dose 2017-03-03 Completed [facility] of 00:00:00 [facility] Influenza High Dose 2017-03-03 Completed [facility] of 00:00:00 [facility] Influenza High Dose 2017-03-03 Completed [facility] of 00:00:00 [facility] Influenza High Dose 2017-03-03 Completed [facility] of 00:00:00 [facility] Influenza High Dose 2017-03-03 Completed [facility] of 00:00:00 [facility] Influenza High Dose 2017-03-03 Completed [facility] of 00:00:00 [facility] Influenza High Dose 2017-03-03 Completed [facility] of 00:00:00 [facility] Influenza High Dose 2017-03-03 Completed [facility] of 00:00:00 [facility] Influenza High Dose 2017-03-03 Completed [facility] of 00:00:00 [facility] Influenza High Dose 2017-03-03 Completed [facility] of 00:00:00 [facility] Influenza High Dose 2017-03-03 Completed [facility] of 00:00:00 [facility] Influenza High Dose 2017-03-03 Completed [facility] of 00:00:00 [facility] Influenza High Dose 2017-03-03 Completed [facility] of 00:00:00 [facility] Influenza High Dose 2017-03-03 Completed [facility] of 00:00:00 [facility] Influenza High Dose 2017-03-03 Completed [facility] of 00:00:00 [facility] Influenza High Dose 2017-03-03 Completed [facility] of 00:00:00 [facility] Influenza High Dose 2017-03-03 Completed [facility] of 00:00:00 [facility] Influenza High Dose 2017-03-03 Completed [facility] of 00:00:00 [facility] Influenza High Dose 2017-03-03 Completed [facility] of 00:00:00 [facility] Influenza High Dose 2017-03-03 Completed [facility] of 00:00:00 [facility] Influenza High Dose 2017-03-03 Completed [facility] of 00:00:00 [facility] Influenza High Dose 2017-03-03 Completed [facility] of 00:00:00 [facility] Influenza High Dose 2017-03-03 Completed [facility] of 00:00:00 [facility] Influenza High Dose 2017-03-03 Completed [facility] of 00:00:00 [facility] Influenza High Dose 2017-03-03 Completed [facility] of 00:00:00 [facility] Influenza High Dose 2017-03-03 Completed [facility] of 00:00:00 [facility] Influenza High Dose 2017-03-03 Completed [facility] of 00:00:00 [facility] Influenza High Dose 2017-03-03 Completed [facility] of 00:00:00 [facility] Influenza High Dose 2017-03-03 Completed [facility] of 00:00:00 [facility] Influenza High Dose 2017-03-03 Completed [facility] of 00:00:00 [facility] Influenza High Dose 2017-03-03 Completed [facility] of 00:00:00 [facility] Influenza High Dose 2017-03-03 Completed [facility] of 00:00:00 [facility] Influenza High Dose 2017-03-03 Completed [facility] of 00:00:00 [facility] Pneumococcal 2016-05-01 Completed University o f [...] ical PPSV23 (PNEUMOVAX) Branch Pneumococcal 2016-05-01 Completed [place] o f Polysaccharide, 00:00:00 [facility] ical PPSV23 (PNEUMOVAX) Branch Pneumococcal 2016-05-01 Completed [place] o f Polysaccharide, 00:00:00 [facility] ical PPSV23 (PNEUMOVAX) Branch TDAP Unknown Completed [facility] SARS-COV-2 COVID-19 Unknown Completed Unive rsity of VACCINE - (MODERNA) [facility] SARS-COV-2 COVID-19 Unknown Completed Unive rsity of VACCINE - (MODERNA) [facility] SARS-COV-2 COVID-19 Unknown Completed Unive rsity of VACCINE - (MODERNA) [facility] SARS-COV-2 COVID-19 Unknown Completed [facility]ive [facility] of VACCINE, BIVALENT [place] [facility] (MODERNA BOOSTER) Branch Flu Trivalent Unknown Completed [facility] Influenza High Dose Unknown Completed [facility] Influenza High Dose Unknown [facility] Completed [facility] Influenza High Dose Unknown Completed [facility] of [facility] Influenza High Dose Unknown Completed [facility] Pneumococcal Unknown Completed [place] o f Polysaccharide, [facility] ical PPSV23 (PNEUMOVAX) Branch Vital Signs Vital Name Observation Time Observation Value Comments Source Systolic blood 2023-01-27 16:23:00 129 mm[Hg] [facility] of [facility] Diastolic blood 2023-01-27 16:23:00 70 mm[Hg] [facility] of [facility] Heart rate 2023-01-27 16:23:00 77 /min [facility] Body height 2023-01-27 16:23:00 149.9 cm [facility] Body weight 2023-01-27 16:23:00 59.966 kg [facility] BMI 2023-01-27 16:23:00 26.70 kg/m2 [facility] Systolic blood 2023-01-05 14:25:00 116 mm[Hg] [facility] of [facility] Diastolic blood 2023-01-05 14:25:00 69 mm[Hg] [facility] of [facility] Heart rate 2023-01-05 14:25:00 76 /min Universi [...] 20:44:00 169 mm[Hg] Univer sity of pressure [facility] Diastolic blood 2022-12-20 20:44:00 64 mm[Hg] [facility] of [facility] Heart rate 2022-12-20 20:44:00 68 /min [facility] Body temperature 2022-12-20 20:44:00 35.94 Tiffanie Univ ersity of [facility] Respiratory rate 2022-12-20 20:44:00 18 /min Univ ersity of [facility] Oxygen saturation in 2022-12-20 20:44:00 93 /min University Arterial blood by [facility] Pulse oximetry Branch Body height 2022-12-19 20:00:00 149.9 cm [facility] Body weight 2022-12-19 20:00:00 61.462 kg [facility] BMI 2022-12-19 20:00:00 27.37 kg/m2 [facility] Systolic blood 2022-12-19 12:17:00 156 mm[Hg] Univer [facility]ity of [facility] Diastolic blood 2022-12-19 12:17:00 71 mm[Hg] Unive rsity of pressure [facility] Heart rate 2022-12-19 12:17:00 60 /min [facility] Body temperature 2022-12-19 12:17:00 36.33 Tiffanie [facility] Respiratory rate 2022-12-19 12:17:00 19 /min [facility] Oxygen saturation in 2022-12-19 12:17:00 96 /min University of Arterial blood by [place] [employer] [facility] Pulse oxim[facility] Branch Body weight 2022-12-15 [...] 14:23:00 152 mm[Hg] Univer [facility]ity of [facility] Diastolic blood 2022-11-08 14:23:00 76 mm[Hg] Unive [facility] of [facility] Heart rate 2022-11-08 14:23:00 71 /min [facility] Oxygen saturation in 2022-11-08 14:23:00 94 /min University of Arterial blood by [facility] Pulse oximetry Branch Respiratory rate 2022-11-08 14:18:00 19 /min [facility] Body height 2022-11-08 14:18:00 149.9 cm [facility] Body weight 2022-11-08 14:18:00 58.877 kg [facility] BMI 2022-11-08 14:18:00 26.22 kg/m2 [facility] Body height 2022-11-02 18:12:00 149.9 cm [facility] Body weight 2022-11-02 18:12:00 59.058 kg [facility] BMI 2022-11-02 18:12:00 26.30 kg/m2 [facility] Body height 2022-03-11 14:29:00 142.7 cm [facility] Body weight 2022-03-11 14:29:00 56.246 kg [facility] BMI 2022-03-11 14:29:00 27.60 kg/m2 [facility] Systolic blood 2022-10-27 16:27:10 155 mm[Hg] [facility] pressure Diastolic blood 2022-10-27 16:27:10 70 mm[Hg] [facility] pressure Heart rate 2022-10-27 16:27:10 83 /min [facility] Body temperature 2022-10-27 16:27:10 37.56 Tiffanie [facility] Respiratory rate 2022-10-27 16:27:10 19 /min [facility] Oxygen saturation in 2022-10-27 16:27:10 95 /min [facility] Arterial blood by Pulse oximetry Body height 2022-10-25 16:18:00 149.9 cm [facility] Body weight 2022-10-25 16:18:00 55.339 kg [facility] BMI 2022-10-25 16:18:00 24.64 kg/m2 [facility] Procedures Procedure Date / Time Performing Clinician Source Performed REFERRAL- 2023-03-23 05:01:00 Doctor Unassigned, [facility] REQUEST/RESPONSE [facility] OP CORRESPONDENCE 2023-02-27 05:01:00 Doctor Unassigned, [facility] [place] [facility] REFERRAL- 2023-02-20 05:01:00 Doctor Unassigned, [facility] REQUEST/RESPONSE [place] [facility] ASSIGNMENT OF BENEFITS 2023-01-05 14:18:04 Doctor Unassigned, [facility] [place] [facility] PHOSPHORUS 2022-12-20 11:38:00 Hilario Vera [facility] MAGNESIUM 2022-12-20 11:38:00 Chuy Hilario [facility] THYROID STIMULATING 2022-12-20 11:38:00 Hilario Vera [facility] HORMONE [facility] HEPATIC FUNCTION PANEL 2022-12-20 11:38:00 Hilario Vera [facility] ([id number]) (ALB,T.PRO,BILI Medical Branch T,BU/BC,ALT,AST,ALK PHOS) BASIC METABOLIC PANEL 2022-12-20 11:38:00 Hilario Vera [facility] (NA, K, CL, CO2, GLUCOSE, Medica l Branch BUN, CREATININE, CA) CBC WITH DIFF 2022-12-20 11:38:00 Hilario Vera [facility] PHOSPHORUS 2022-12-20 11:38:00 Chuy [facility] MAGNESIUM 2022-12-20 11:38:00 Chuy [facility] THYROID STIMULATING 2022-12-20 11:38:00 Hilario Vera [facility] HEPATIC FUNCTION PANEL 2022-12-20 11:38:00 Hilario Vera [facility] ([id number]) (ALB,T.PRO,BILI Medical Branch T,BU/BC,ALT,AST,ALK PHOS) BASIC METABOLIC PANEL 2022-12-20 11:38:00 Hilario Vera [facility] (NA, K, CL, CO2, GLUCOSE, Medica l Branch BUN, CREATININE, CA) CBC WITH DIFF 2022-12-20 11:38:00 Hilario Vera [facility] MRSA / MSSA SCREEN BY 2022-12-19 22:08:00 Elin Sims [facility] MRSA / MSSA SCREEN BY 2022-12-19 22:08:00 Elin Sims [facility], [facility] XR KNEE <3 VW LEFT 2022-12-19 18:53:03 Elin Sims [facility] XR KNEE <3 VW LEFT 2022-12-19 18:53:03 Elin Sims [facility] TOTAL KNEE ARTHROPLASTY 2022-12-19 14:55:00 Elin Sims [facility] TOTAL KNEE ARTHROPLASTY 2022-12-19 14:55:00 Elin Sims Un [facility] EXTERNAL PROVIDER RECORDS 2022-12-01 05:01:00 Doctor Unassigned, [facility] Name Medical [place] [facility] PRE-OP 2022-12-01 05:01:00 Doctor Unassigned, [facility] Name Medical Branch EXTERNAL PROVIDER RECORDS 2022-12-01 05:01:00 Doctor Unassigned, [facility] Name Medical [place] [facility] PRE-OP 2022-12-01 05:01:00 Doctor Unassigned, [facility] MYOCARDIUM PERFUSION 2022-11-22 17:15:00 Ravin, [facility] STRESS AND REST Medical Branch NUCLEAR STRESS TEST 2022-11-22 17:15:00 Ravin, [facility] CARDIOLOGY (DO NOT SCHED) Medica l Branch NUCLEAR STRESS TEST 2022-11-22 17:15:00 Ravin, [facility] CARDIOLOGY (DO NOT SCHED) Medica l Branch NM MYOCARDIUM PERFUSION 2022-11-22 17:15:00 Ravin, [facility] STRESS AND REST Medical Branch NM MYOCARDIUM PERFUSION 2022-11-22 17:15:00 Ravin, [facility] STRESS AND REST Medical Branch NUCLEAR STRESS TEST 2022-11-22 17:15:00 Ravin, [facility] CARDIOLOGY (DO NOT SCHED) Medica l Branch NM MYOCARDIUM PERFUSION 2022-11-22 17:15:00 Ravin, [facility] STRESS AND REST Medical Branch NUCLEAR STRESS TEST 2022-11-22 17:15:00 Ravin, [facility] CARDIOLOGY (DO NOT SCHED) Medica l Branch ASSIGNMENT OF BENEFITS 2022-11-22 13:14:23 Doctor Unassigned, [facility] Medical Branch HB ECG ROUTINE & RHYTHM 2022-11-08 14:20:55 Ravin [facility] PATIENT FINANCIAL 2022-11-02 18:05:55 Doctor Unassigned, [facility] POLICY [place] [facility] BASIC METABOLIC PANEL 2022-10-27 08:37:00 [facility] LACTIC ACID LEVEL 2022-10-27 08:37:00 [facility] ESTIMATED GFR 2022-10-27 08:37:00 [facility] CBC WITH PLATELET AND 2022-10-26 11:18:00 [facility] DIFFERENTIAL BASIC METABOLIC PANEL 2022-10-26 11:18:00 [facility] LACTIC ACID LEVEL 2022-10-26 11:18:00 [facility] ESTIMATED GFR 2022-10-26 11:18:[address] [facility] [address] SINUS WO CONTRAST 2022-10-25 23:52:27 [facility] 12-LEAD 2022-10-25 21:44:16 [facility] [place] CT CHEST WO CONTRAST 2022-10-25 19:05:34 [facility] [place] XR CHEST 1 VW PORTABLE 2022-10-25 17:42:27 [facility], INFLUENZA A&B, 2022-10-25 17:10:00 [facility] AND RSV QUALITATIVE [place] RT-PCR CBC WITH PLATELET AND 2022-10-25 17:10:00 [facility] DIFFERENTIAL COMPREHENSIVE METABOLIC 2022-10-25 17:10:00 [facility] PANEL LACTIC ACID LEVEL 2022-10-25 17:10:00 [facility] B NATRIURETIC PEPTIDE 2022-10-25 17:10:00 [facility] TROPONIN T 2022-10-25 17:10:00 [facility] ESTIMATED GFR 2022-10-25 17:10:00 [facility] ECG ED PRELIMINARY 2022-10-25 16:28:03 [facility] INTERPRETATION [place] XR KNEE 3 VW LEFT 2022-04-29 14:06:14 Liss Nava [facility] XR KNEE AP STANDING 2022-04-29 14:05:22 Liss Nava [facility] BILATERAL AUTHORIZATION FOR RELEASE 2022-04-11 05:01:00 Doctor Unassigned, [facility] [place] [facility] Plan of Care Planned Activity Planned Date Details Comments Source Future Scheduled 2023-06-12 Screening for [facility] Test 09:07:11 malignant neoplasm of colon (procedure) [code = 552128370] Future Scheduled 2023-06-12 Screening for [facility] Test 09:07:11 malignant neoplasm of colon (procedure) [code = 688820169] Future Scheduled 2023-06-12 Screening for [facility] Test 09:07:11 malignant neoplasm of colon (procedure) [code = 343260028] Future Scheduled 2023-06-12 Hepatitis C screening [facility] Test 09:07:11 (procedure) [code = 228867157] Future Scheduled 2023-06-12 BREAST CANCER [facility] Test 09:07:11 SCREENING [code = BREAST CANCER SCREENING] Future Scheduled 2023-06-12 Screening for [facility] Test 09:07:11 malignant neoplasm of colon (procedure) [code = 911482537] Future Scheduled 2023-06-12 Screening for [facility] Test 09:07:11 malignant neoplasm of colon (procedure) [code = 915924112] Future Scheduled 2023-06-12 SHINGLES VACCINES (1 Met [facility] Test 09:07:11 of 2) [code = SHINGLES VACCINES (1 of 2)] Future Scheduled 2023-06-12 65+ PNEUMOCOCCAL [facility] Test 09:07:11 VACCINE (2 - PCV) [code = 65+ PNEUMOCOCCAL VACCINE (2 - PCV)] Future Scheduled 2023-06-12 COVID-19 VACCINE (5 - [facility] Test 09:07:11 season) [code = COVID-19 VACCINE (5 - season)] Future Scheduled 2023-06-12 INFLUENZA VACCINE (#1) [facility] Test 09:07:11 [code = INFLUENZA VACCINE (#1)] Future Scheduled 2023-05-11 Screening for [facility] Test 23:23:32 malignant neoplasm of colon (procedure) [code = 187939469] Future Scheduled 2023-05-11 Screening for [facility] Test 23:23:32 malignant neoplasm of colon (procedure) [code = 877548770] Future Scheduled 2023-05-11 Screening for [facility] Test 23:23:32 malignant neoplasm of colon (procedure) [code = 297462420] Future Scheduled 2023-05-11 Hepatitis C screening [facility] Test 23:23:32 (procedure) [code = 196409105] Future Scheduled 2023-05-11 BREAST CANCER [facility] Test 23:23:32 SCREENING [code = BREAST CANCER SCREENING] Future Scheduled 2023-05-11 Screening for [facility] Test 23:23:32 malignant neoplasm of colon (procedure) [code = 470622623] Future Scheduled 2023-05-11 Screening for [facility] Test 23:23:32 malignant neoplasm of colon (procedure) [code = 789149299] Future Scheduled 2023-05-11 SHINGLES VACCINES (1 [facility] Test 23:23:32 of 2) [code = SHINGLES VACCINES (1 of 2)] Future Scheduled 2023-05-11 65+ PNEUMOCOCCAL [facility] Test 23:23:32 VACCINE (2 - PCV) [code = 65+ PNEUMOCOCCAL VACCINE (2 - PCV)] Future Scheduled 2023-05-11 COVID-19 VACCINE (5 - [facility] Test 23:23:32 season) [code = COVID-19 VACCINE (5 - season)] Future Scheduled 2023-05-11 INFLUENZA VACCINE (#1) [facility] Test 23:23:32 [code = INFLUENZA VACCINE (#1)] Future Scheduled 2023-04-21 Screening for [facility] Test 17:39:58 malignant neoplasm of colon (procedure) [code = 289157159] Future Scheduled 2023-04-21 Screening for [facility] Test 17:39:58 malignant neoplasm of colon (procedure) [code = 397604776] Future Scheduled 2023-04-21 Screening for [facility] Test 17:39:58 malignant neoplasm of colon (procedure) [code = 371580359] Future Scheduled 2023-04-21 Hepatitis C screening [facility] Test 17:39:58 (procedure) [code = 513709609] Future Scheduled 2023-04-21 BREAST CANCER [facility] Test 17:39:58 SCREENING [code = BREAST CANCER SCREENING] Future Scheduled 2023-04-21 Screening for [facility] Test 17:39:58 malignant neoplasm of colon (procedure) [code = 169599981] Future Scheduled 2023-04-21 Screening for [facility] Test 17:39:58 malignant neoplasm of colon (procedure) [code = 903436754] Future Scheduled 2023-04-21 SHINGLES VACCINES (1 Met [facility] Test 17:39:58 of 2) [code = SHINGLES VACCINES (1 of 2)] Future Scheduled 2023-04-21 65+ [facility]CCAL [facility] 17:39:58 VACCINE (2 - PCV) [code = 65+ PNEUMOCOCCAL VACCINE (2 - PCV)] Future Scheduled 2023-04-21 COVID-19 VACCINE (5 - [facility] Test 17:39:58 Moderna series) [code = COVID-19 VACCINE (5 - Moderna series)] Future Scheduled 2023-04-21 INFLUENZA VACCINE (#1) [facility] Test 17:39:58 [code = INFLUENZA VACCINE (#1)] Future Scheduled 2022-12-06 Hepatitis C screening [facility] Test 15:38:32 (procedure) [code = 339278481] Future Scheduled 2022-12-06 SHINGLES VACCINES (1 Met [facility] Test 15:38:32 of 2) [code = SHINGLES VACCINES (1 of 2)] Future Scheduled 2022-12-06 BREAST CANCER [facility] Test 15:38:32 SCREENING [code = BREAST CANCER SCREENING] Future Scheduled 2022-12-06 COLONOSCOPY SCREENING [facility] Test 15:38:32 [code = COLONOSCOPY SCREENING] Future Scheduled 2022-12-06 65+ [facility]CCAL [facility] 15:38:32 VACCINE (2 - PCV) [code = 65+ PNEUMOCOCCAL VACCINE (2 - PCV)] Future Scheduled 2022-12-06 INFLUENZA VACCINE [facility] Test 15:38:32 [code = INFLUENZA VACCINE] Encounters Start End Encounter Admission Attending Care Care Encounter Source Date/Time Date/Time Type Type Clinicians Facility Department ID 2021-05-18 Emergency [facility] [id number] Univers 09:26:53 [facility] 2021-05-16 Emergency [facility] [id number] Univers 23:42:49 ity of [facility] 2021-05-16 Emergency [facility] [id number] Univers 14:05:45 ity of [facility] 2023-03-24 2023-03-24 [place] [facility] 1.2.840.114 [id number] Univers 00:00:00 00:00:00 Elin L HEALTH 350.1.13.10 it [facility] 4.2.7.2.686 Asael as CHANCE?BLEA [phone] Nc stephany [address] 2023-03-23 2023-03-23 Orders Doctor SUSHIL 1.2.840.114 [id number] Univers 00:00:00 00:00:00 Only Unassigned, [place] 350.1.13.10 ity of [place] [facility] 4.2.7.2.686 Asael as [phone] [address] 2023-03-01 2023-03-01 Blu [facility] 1.2.840.114 [id number] Univers 00:00:00 00:00:00 Jonathan S HEALTH 350.1.13.10 it [facility] 4.2.7.2.686 Asael as CHANCE?BLEA [phone] [address] 2023-02-27 2023-02-27 Orders Doctor SUSHIL 1.2.840.114 [id number] Univers 00:00:00 00:00:00 Only [place]assigned, [place] 350.1.13.10 ity of [place] [facility] 4.2.7.2.686 Asael as [id number] [address] 2023-02-24 2023-02-24 Blu [facility] 1.2.840.114 [id number] Univers 00:00:00 00:00:00 Jonathan S HEALTH 350.1.13.10 it [facility] 4.2.7.2.686 Asael as CHANCE?BLEA [id number] Nc herber[address] 2023-02-22 2023-02-22 Blu [facility] 1.2.840.114 [id number] Univers 00:00:00 00:00:00 Jonathan S HEALTH 350.1.13.10 it y [facility] 4.2.7.2.686 Asael as CHANCE?BLEA [phone] Nc stephany SOARES [address] [facility] OFFICE [facility] 2023-02-21 2023-02-21 [facility]patient [facility] [id number] Univers 15:00:00 15:00:00 JONATHAN ity [facility] 2023-02-20 2023-02-20 Orders Doctor SUSHIL 1.2.840.114 [id number] Univers 00:00:00 00:00:00 Only [place]assigned, [place] 350.1.13.10 [facility] 4.2.7.2.686 Asael as [phone] [address] 2023-02-03 2023-02-03 [facility] [id number] Univers 09:30:00 09:30:00 JONATHAN ity [facility] 2023-01-27 2023-01-27 Office [facility] 1.2.840.114 [id number] Univers 10:45:00 11:00:00 Visit Jonathan S HEALTH 350.1.13.10 it y [facility] 4.2.7.2.686 Asael as CHANCE?BLEA [id number] [facility] SHARON [address] [facility] OFFICE [facility] 2023-01-27 2023-01-27 [facility] [id number] Univers 10:45:00 10:45:00 JONATHAN ity [facility] 2023-01-26 2023-01-26 Blu [facility] 1.2.840.114 [id number] Univers 00:00:00 00:00:00 Jonathan S HEALTH 350.1.13.10 it y [facility] 4.2.7.2.686 Asael as CHANCE?BLEA [phone] Nc stephany [facility] [address] [facility] OFFICE [facility] 2023-01-11 2023-01-11 Blu [facility] 1.2.840.114 [id number] Univers 00:00:00 00:00:00 Jonathan S HEALTH 350.1.13.10 it y of [place] 4.2.7.2.686 Asael as CHANCE?BLEA [id number] Nc stephany GARG [address] [facility] OFFICE [facility] 2023-01-10 2023-01-10 Telephone [facility] 1.2.840.114 [id number] Univers 00:00:00 00:00:00 Elin L HEALTH 350.1.13.10 it y of [place] 4.2.7.2.686 Aasel as CHANCE?BLEA [phone] Nc stephany GARG [address] [place] [facility] OFFICE [facility] 2023-01-10 2023-01-10 Telephone KennedyRE[facility] 1.2.902.783 [id number] Univers 00:00:00 00:00:00 Jonathan S HEALTH 350.1.13.10 it y of [place] 4.2.7.2.686 Asael as CHANCE?BLEA [phone] Nc stephany GARG [address] [place] [address] OFFICE [facility] 2023-01-06 2023-01-06 Telephone [facility] 1.2.840.114 10 [id number] Univers 00:00:00 00:00:00 Elin HEALTH 350.1.13.10 it y of [place] 4.2.7.2.686 Asael as CHANCE?BLEA [id number] Nc stephany GARG [address] [facility] OFFICE [facility] 2023-01-05 2023-01-05 Outpatient [facility] [id number] Univers 09:25:00 23:59:00 JONATHAN ity of [facility] 2023-01-05 2023-01-05 Office [facility] 1.2.840.114 [id number] Univers 10:15:00 10:30:00 Visit Jonathan S [employer] 350.1.13.10 it y of [place] 4.2.7.2.686 Asael as CHANCE?BLEA [id number] Nc stephany GARG [address] [place] [address] OFFICE [facility] 2023-01-05 2023-01-05 Orders Doctor LING 1.2.840.114 [id number] Univers 00:00:00 00:00:00 Only Unassigned, [place] 350.1.13.10 ity of [place] [facility] 4.2.7.2.686 Asael as [phone] [address] 2023-01-05 2023-01-05 Telephone Brent [facility] 1.2.388.220 [id number] Univers 00:00:00 00:00:00 Jonathan S HEALTH 350.1.13.10 it y of [place] 4.2.7.2.686 Asael as CHANCE?BLEA [id number] Nc stephnay GARG [address] [place] [facility] OFFICE [facility] 2023-01-03 2023-01-03 Patient Bekah [facility] 1.2.840.114 [id number] Univers 00:00:00 00:00:00 Outreach [facility] HEALTH 350.1.13.10 ity [facility] 4.2.7.2.686 Asael as CHANCE?BLEA [phone] Nc stephany GARG [address] [facility] OFFICE [facility] 2022-12-30 2022-12-30 Telephone Bethany [facility] 1.2.840.114 10 [id number] Univers 00:00:00 00:00:00 Elin L HEALTH 350.1.13.10 it y of [place] 4.2.7.2.686 Asael as CHANCE?BLEA [id number] Nc stephany GARG [address] [facility] 2022-12-29 2022-12-29 Refill [facility] 1.2.619.142 [id number] Univers 00:00:00 00:00:00 Elin L HEALTH 350.1.13.10 it y of [place] 4.2.7.2.686 Asael as CHANCE?BLEA [phone] Nc stephany GARG [address] [facility] OFFICE [facility] 2022-12-29 2022-12-29 Telephone Brent [facility] 1.2.775.056 [id number] Univers 00:00:00 00:00:00 Jonathan S HEALTH 350.1.13.10 it y of [place] 4.2.7.2.686 Asael as CHANCE?BLEA [id number] Nc stephany GARG [address] [facility] OFFICE [facility] 2022-12-27 2022-12-27 Telephone Bethany [facility] 1.2.840.114 10 [id number] Univers 00:00:00 00:00:00 Elin Crespo HEALTH 350.1.13.10 it y of [place] 4.2.7.2.686 Asael as CHANCE?BLEA [phone] Me stephany GARG [address] [facility] OFFICE [facility] 2022-12-26 2022-12-26 Office [facility] 1.2.840.114 [id number] Univers 14:00:00 14:04:12 Visit [facility] 350.1.13.10 it y of [place] 4.2.7.2.686 Asael as CHANCE?BLEA [id number] Nc stephany GARG [address] [facility] OFFICE [facility] 2022-12-26 2022-12-26 [facility] [id number] Univers 14:00:00 14:04:12 [facility] 2022-12-26 2022-12-26 [facility]patient [facility] [id number] Univers 14:00:00 14:00:00 [facility] 2022-12-26 2022-12-26 Telephone [facility] 1.2.840.114 10 [id number] Univers 00:00:00 00:00:00 Elin [facility] 350.1.13.10 it y of [place] 4.2.7.2.686 Asael as CHANCE?BLEA [phone] Nc stephany GARG [address] [facility] OFFICE [facility] 2022-12-26 2022-12-26 Telephone [facility] 1.2.840.114 10 [id number] Univers 00:00:00 00:00:00 Elin Crespo HEALTH 350.1.13.10 it y of [place] 4.2.7.2.686 Asael as CHANCE?BLEA [id number] Nc stephany GARG [address] [facility] OFFICE [facility] 2022-12-23 2022-12-23 Telephone [facility] 1.2.840.114 10 [id number] Univers 00:00:00 00:00:00 Elin Crespo HEALTH 350.1.13.10 it y of [place] 4.2.7.2.686 Asael as CHANCE?BLEA [id number] Nc stephany GARG [address] [facility] OFFICE [facility] 2022-12-23 2022-12-23 Telephone [facility] 1.2.840.114 10 [id number] Univers 00:00:00 00:00:00 Elin SARABIA 350.1.13.10 it y of [place] 4.2.7.2.686 Asael as CHANCE?BLEA [id number] Nc stephany GARG [address] [facility] 2022-12-22 2022-12-22 [place] [facility] 1.2.840.114 10 [id number] Univers 00:00:00 00:00:00 Elin SARABIA 350.1.13.10 it y of [place] 4.2.7.2.686 Asael as CHANCE?BLEA [id number] Nc stephany GARG [address] [facility] 2022-12-22 2022-12-22 [place] [facility] 1.2.840.114 10 [id number] Univers 00:00:00 00:00:00 Elin SARABIA 350.1.13.10 it y of [place] 4.2.7.2.686 Asael as CHANCE?BLEA [id number] Nc stephany GARG [address] [facility] 2022-12-21 2022-12-21 [facility] 1.2.840.114 10 [id number] Univers 00:00:00 00:00:00 Elin SARABIA 350.1.13.10 it y of [place] 4.2.7.2.686 Asael as CHANCE?BLEA [id number] Nc stephany GARG [address] [facility] 2022-12-19 2022-12-20 Outpatient Cj ALVARADO [facility] [id number] [facility] 07:09:00 17:10:00 KATIANA foy [facility] 2022-12-19 2022-12-20 [facility] SimsElin escalante Cherie [facility] 1.2.840 .114 [id number] [facility] 07:09:00 17:10:00 Katiana Castaneda 350.1.13.10 ity [facility] [place]2.7.2.[place] [id number] [address] 2022-12-20 2022-12-20 [place] [facility] 1.2.840.114 10 [id number] Univers 00:00:00 00:00:00 Elin Crespo HEALTH 350.1.13.10 it y of [place] 4.2.7.2.686 Asael as CHANCE?BLEA [id number] Nc stephany GARG [address] [facility] OFFICE [facility] 2022-12-19 2022-12-19 Surgery Bethany [facility] 1.2.188.758 [id number] Univers 09:30:00 11:48:00 Elin HDEZ 350.1.13.10 i ty [facility] 4.2.7.2.[place] [id number] [address] 2022-12-16 2022-12-16 Telephone Bethany [facility] 1.2.840.114 10 [id number] Univers 00:00:00 00:00:00 Elin Crespo HEALTH 350.1.13.10 it y of [place] 4.2.7.2.686 Asael as CHANCE?BLEA [phone] Nc stephany GARG [address] [facility] OFFICE [facility] 2022-12-15 2022-12-15 Office Brent [facility] 1.2.840.114 [id number] Univers 11:00:00 11:15:00 Visit Jonathan S HEALTH 350.1.13.10 it y of [place] 4.2.7.2.686 Asael as CHANCE?BLEA [id number] Nc stephany GARG [address] [facility] OFFICE [facility] 2022-12-15 2022-12-15 Outpatient R BRENT [facility] [id number] Univers 11:00:00 11:00:00 JONATHAN ity of [facility] 2022-12-15 2022-12-15 [employer] Christiano [facility] Main [facility] 1.2.8 40.114 [id number] Univers 07:45:00 08:00:00 Visit Elin Sims 350.1.13.10 ity of [place].2.[place] [id number] Nc dickurtis [place] [address] [facility] 2022-12-09 2022-12-09 Ancillary Will Marinelli [facility] 1.2.840. 114 [id number] Univers 10:15:00 11:00:00 Visit Elin Sims 350.1.13.10 ity of [place].7.2.[place] [id number] Me dical PERFECTO [address] [facility] 2022-12-09 2022-12-09 Outpatient R BETHANY [facility] [id number] Univers 10:15:00 10:15:00 ELIN foy [facility] 2022-12-06 2022-12-06 [facility]phone [facility] 1.2.840.114 [id number] Univers 00:00:00 00:00:00 Elin Crespo HEALTH [id number] it y of [place] [id number] Asael as CHANCE?BLEA [phone] [place] dical SHARONEY 198 [facility] 2022-12-02 2022-12-02 Telephone [facility] 1.2.840.114 [id number] Univers 00:00:00 00:00:00 Elin Crespo HEALTH [id number] it y of [place] [id number] Asael as CHANCE?BLEA [id number] Me dical KNEY 198 [facility] 2022-12-02 2022-12-02 Prep [facility] 1.2.840.114 [id number] Univers 00:00:00 00:00:00 Surgery Elin Crespo HEALTH 350.1.13.10 it y of [place] [id number] Asael as CHANCE?BLEA [phone] Nc dical JACKSON 198 [facility] 2022-12-01 2022-12-01 Outpatient R BRENT [facility] [id number] Univers 10:15:00 10:56:47 JONATHAN foy [facility] 2022-12-01 2022-12-01 Office [facility] 1.2.840.114 [id number] Univers 10:15:00 10:56:47 Visit Jonathan SARABIA 350.1.13.10 it y of [place] 4.2.7.2.686 Asael as CHANCE?BLEA [phone] Nc dical JACKSON 198 [facility] 2022-11-28 2022-11-28 Telephone [facility] 1.2.840.114 [id number] Univers 00:00:00 00:00:00 Elin [facility] 350.1.13.10 it y of [place] 4.2.7.2.686 Asael as CHANCE?BLEA [id number] [facility] [address] MEDICAL OFFICE BUILDING 2022-11-23 2022-11-23 Telephone [facility] 1.2.632.383 [id number] Univers 00:00:00 00:00:00 Qiangelif [place] 350.1.13.10 ity of [place].2.7.2.[place] PROF[place] [phone] [facility] 059 [facility] 2022-11-22 2022-11-22 [facility] 1.2.840.114 [id number] Univers 08:17:51 08:17:51 Encounter Qiangjun [place] 350.1.13.10 it[place] [id number] [address] 2022-11-22 2022-11-22 [facility] 1.2.840.114 [id number] Univers 08:17:15 08:17:15 Encounter India [place] 350.1.13.10 it[place] of [place].7.2.[place] [id number] [address] 2022-11-22 2022-11-22 [facility] 1.2.840.114 [id number] Univers 08:16:35 08:16:35 Encounter India [place] 350.1.13.10 it[place] of [place].2.7.2.[place] [id number] [address] 2022-11-22 2022-11-22 Outpatient R FORMERLY [facility] [id number] Univers 08:15:51 08:15:51 [place] ity o f [facility] 2022-11-22 2022-11-22 [facility] 1.2.840.114 [id number] Univers 08:15:51 08:15:51 Encounter Qiangjun [place] 350.1.13.10 ity of [place].2.7.2.[place] [id number] [facility] [address] 2022-11-22 2022-11-22 Orders Doctor SUSHIL 1.2.840.114 [id number] Univers 00:00:00 00:00:00 Only Unassigned, [place] 350.1.13.10 ity of [place] [facility] 4.2.7.2.686 Asael as [id number] [facility] [address] 2022-11-22 2022-11-22 Telephone [facility] 1.2.840.114 [id number] Univers 00:00:00 00:00:00 Elin L HEALTH 350.1.13.10 it y of [place] 4.2.7.2.686 Asael as CHANCE?BLEA [phone] Nc stephany SO[address] OFFICE [facility] 2022-11-08 2022-11-08 Outpatient R RAVIN [facility] [id number] Univers 09:20:00 09:37:14 DANIELLEELIF gloriay o f [facility] 2022-11-08 2022-11-08 Office [facility] 1.2.840.114 [id number] Univers 09:20:00 09:37:14 Visit Sandrakarinaelif BELTRANGAIL 350.1.13.10 ity of [place] 4.2.7.2.686 [place] [facility] [phone] Nc herberkurtis NAL 059 [facility] 2022-11-04 2022-11-04 Telephone Brent MOABRIL 1.2.525.722 [id number] Univers 00:00:00 00:00:00 Jonathan S HEALTH 350.1.13.10 it y of [place] 4.2.7.2.686 Asael as CHANCE?BLEA [id number] Nc stephany GARG [address] [place] [address] OFFICE [facility] 2022-11-02 2022-11-02 Outpatient R BETHANY [facility] [id number] Univers 13:00:00 14:32:28 ELIN ity of [facility] 2022-11-02 2022-11-02 Office Jonathan Kennedy [facility] 1.2.840.114 [id number] Univers 13:00:00 13:15:00 Visit Elin Sims [facility] 350.1.13.10 it[facility] 4.2.7.2.686 Asael as CHANCE?BLEA [id number] Nc stephany MAILE [address] [place] [address] MEDICAL OFFICE BUILDING 2022-11-02 2022-11-02 Orders Doctor SUSHIL 1.2.840.114 [id number] Univers 00:00:00 00:00:00 Only Unassigned, [place] 350.1.13.10 ity of [place] [facility] 4.2.7.2.686 Asael as [id number] [address] 2022-10-25 2022-10-27 Emergency Elan Wild. 1.2.840.1 104 [id number] Methodi 11:19:00 12:45:00 Sarah Abbott 73749.1.[address] 3.430.2.7 Hospit a .3.130694 l .8 2022-10-25 2022-10-27 Emergency Elan Wild 1.2.840.1 104 [id number] Methodi 11:19:00 12:45:00 Sarah Abbott 22452.1.[address] 3.430.2.7 Hospit a .3.381322 l .8 2022-10-25 2022-10-25 Travel 1.2.840.1 1.2.701.805 5615 [id number] Methodi 00:00:00 00:00:[address] 3.430.2.7 0.2.7.3.698 Ho spita .3.782600 084.8 l .8 2022-10-25 2022-10-25 Travel 1.2.840.1 1.2.354.003 0803 [id number] Methodi 00:00:00 00:00:[address] 3.430.2.7 0.2.7.3.698 Ho spita .3.351324 084.8 l .8 2022-04-29 2022-04-29 Office Elana, 1.2.840.1 [id number] Methodi 09:00:00 09:17:07 Visit Liss 75247.1.[address] Conti 3.430.2.7 Hospit a .3.025222 l .8 2022-04-29 2022-04-29 Outpatient ELANA, [facility] [id number] [address] [place] 00:00:00 00:00:00 LISS 582 Method i 2022-04-29 2022-04-29 Outpatient ELANA, [facility] [id number] 554 [place] 00:00:00 00:00:00 LISS 600 Method i 2022-04-29 2022-04-29 Travel 1.2.840.1 1.2.347.266 [id number] [id number] Methodi 00:00:00 00:00:[address] 3.430.2.7 0.2.7.3.698 Ho spita .3.376367 084.8 l .8 2022-04-13 2022-04-13 Outpatient DMG [facility] [id number] Devoted 00:00:00 00:00:00 [address] Medica l Group 2022-04-11 2022-04-11 Orders Doctor SUSHIL 1.2.840.114 [id number] Univers 00:00:00 00:00:00 Only Unassigned[place] 350.1.13.10 ity of [place] [facility] 4.2.7.2.686 Asael as [id number] [address] 2022-03-11 2022-03-11 Outpatient R BRENT [facility] [id number] Univers 10:00:00 10:09:02 JONATHAN foy [facility] 2022-03-11 2022-03-11 Office Brent MOABRIL 1.2.840.114 [id number] Univers 10:00:00 10:09:02 Visit [facility] 350.1.13.10 it y of [place] 4.2.7.2.686 Asael as CHANCE?BLEA [phone] Nc dical [address] MEDICAL OFFICE BUILDING 2022-03-03 2022-03-03 Office [facility] 1.2.840.114 [id number] Univers 10:00:00 10:15:00 Visit [facility] HEALTH 350.1.13.10 it y of [place] 4.2.7.2.686 Asael as CHANCE?BLEA [phone] Nc stephany GARG [address] [place] [address] 2022-03-03 2022-03-03 [facility] [id number] Univers 10:00:00 10:00:00 [facility] 2022-03-02 2022-03-02 Telephone [facility] 1.2.472.498 [id number] Univers 00:00:00 00:00:00 Jonathan S HEALTH 350.1.13.10 it y of [place] 4.2.7.2.686 Asael as CHANCE?BLEA [id number] Nc stephany GARG [address] [place] [address] 2022-02-24 2022-02-24 Office [facility] 1.2.840.114 [id number] Univers 14:30:00 14:45:00 Visit [facility] HEALTH 350.1.13.10 it y of [place] 4.2.7.2.686 Asael as CHANCE?BLEA [id number] Nc stephany GARG [address] [place] [address] 2022-02-24 2022-02-24 [facility] [id number] Univers 14:30:00 14:30:00 JONATHAN [facility] 2022-02-24 2022-02-24 [facility] [id number] Univers 14:30:00 14:30:00 JONATHAN [facility] 2022-02-16 2022-02-16 Office [facility] 1.2.840.114 [id number] Univers 15:45:00 16:00:00 Visit [facility] HEALTH 350.1.13.10 it y of [place] 4.2.7.2.686 Asael as CHANCE?BLEA [phone] Nc stephany GARG [address] [place] [address] OFFICE [facility] 2022-02-16 2022-02-16 [facility] [id number] Univers 15:45:00 15:45:00 [facility] 2022-02-02 2022-02-02 Transcribe Viv, 1.2.840.1 [id number] Methodi 00:00:00 00:00:00 Orders Sarah Murillo 78034.1.[address] 3.430.2.7 Hospit a .3.436302 l .8 2022-01-10 2022-01-10 [facility] [id number] Univers 14:00:00 14:00:00 [facility] 2021-12-28 2021-12-28 Outpatient [facility] [id number] Univers 14:15:00 15:34:20 [facility] 2021-12-28 2021-12-28 Office [facility] 1.2.840.114 [id number] Univers 14:15:00 15:34:20 Visit [facility] 350.1.13.10 it y of [place] 4.2.7.2.686 Asael as CHANCE?BLEA [id number] Nc herberkurtis SHARONMAILE [address] [place] [address] OFFICE [facility] 2021-12-27 2021-12-27 Office [facility] 1.2.840.114 [id number] Univers 16:00:00 16:15:00 Visit [facility] 350.1.13.10 it y of [place] 4.2.7.2.686 Asael as CHANCE?BLEA [id number] Nc herberkurtis SO[address] OFFICE [facility] 2021-12-27 2021-12-27 Outpatient [facility] [id number] Univers 16:00:00 16:00:00 [facility] 2021-12-27 2021-12-27 Outpatient [facility] [id number] Univers 16:00:00 16:00:00 [facility] 2021-12-27 2021-12-27 Orders Doctor LING 1.2.840.114 [id number] Univers 00:00:00 00:00:00 Only [place]assigned, [place] 350.1.13.10 ity of [place] [facility] 4.2.7.2.686 Asael as [id number] [facility] [address] 2021-09-06 2021-09-06 Emergency X LOCO, [facility] ERT [id number] Univers 16:46:00 19:27:00 LIGIA itdarius of [facility] 2021-09-06 2021-09-06 Emergency Loco [facility] 1.2.840.114 [id number] Univers 16:46:00 19:27:00 Ligia HDEZ 350.1.13.10 i ty of [place].2.7.2.686 [place] [id number] [facility] [address] 2021-06-04 2021-06-04 [employer], Ang - [facility] 1.2.840.1 14 [id number] Univers 08:26:55 08:41:55 Visit Elin Sims [facility] 350.1.13.10 ity of [place] 4.2.7.2.686 Asael as CHANCE?BLEA [id number] Nc stephany MAILE [address] MEDICAL OFFICE BUILDING 2021-06-04 2021-06-04 Outpatient R BETHANY [facility] [id number] Univers 08:15:00 08:31:31 ELIN foy [facility] 2021-06-04 2021-06-04 Office Jonathan Kennedy [facility] 1.2.840.114 [id number] Univers 07:20:36 08:31:31 Visit Elin Sims [facility] 350.1.13.10 ity of [place] 4.2.7.2.686 Asael as CHANCE?BLEA [id number] [facility] [address] MEDICAL OFFICE BUILDING 2021-06-04 2021-06-04 Outpatient R BETHANY [facility] [id number] Univers 08:15:00 08:15:00 ELIN foy [facility] 2021-05-13 2021-05-16 Inpatient MAD, [facility] 064 [id number] 23 [place] 00:00:00 00:00:00 JUNG Byrnes [facility] 2021-05-10 2021-05-10 Emergency [facility] 1.2.961.920 [id number] Univers 12:57:00 14:11:00 Luis Carlos [place] 350.1.13.10 i ty of [place] 4.2.7.2.686 [place] [facility] [id number] [address] 2021-03-24 2021-03-24 [facility] 1.2.840.114 [id number] Univers 15:55:00 23:59:00 Encounter [facility] 350.1.13.10 ity of [place] 4.2.7.2.686 Asael as Chance?Blea [phone] Nc herberkurtis garg 809 [facility] Office [facility] 2021-03-24 2021-03-[address] [facility] 1.2.840.114 [id number] Univers 15:44:05 15:59:05 Visit [facility] 350.1.13.10 it y of [place] 4.2.7.2.686 Asael as Chance?Blea [id number] Nc herberkurtis sharonmaile 198 [facility] Office [facility] 2021-03-24 2021-03-24 Outpatient R BRENT [facility] [id number] Univers 15:15:00 15:15:00 JONATHAN darius [facility] 2021-03-12 2021-03-12 Outpatient Cj SIMS [facility] [id number] Univers 09:00:00 09:00:00 ELIN darius [facility] 2021-03-11 2021-03-11 Outpatient Cj SIMS [facility] [id number] Univers 08:45:00 08:45:00 ELIN darius [facility] 2021-02-25 2021-02-25 Outpatient MADELEINE SON [facility] [id number] Univers 10:00:00 10:00:00 MADELEINE SEBASTIAN i [facility] 2021-01-22 2021-01-24 Outpatient VIV [facility] [id number] 5756 [place] 00:00:00 00:00:00 SARAH [address] [facility] 2020-12-21 2020-12-21 Emergency [facility] 1.2.840.114 [id number] Univers 18:08:00 21:05:00 Nallely Sven [place] 350.1.13.10 ity of [place] 4.2.7.2.686 [facility] [id number] [address] 2020-12-10 2020-12-12 Inpatient VIV [facility] [id number] 471 [place] 00:00:00 00:00:00 SARAH [address] 2020-11-05 2020-11-05 [facility] [id number] Univers 09:15:00 09:15:00 ELIN itdarius of [facility] 2020-11-05 2020-11-05 Office [facility] 1.2.125.254 [id number] Univers 08:38:47 09:10:24 Visit Elin [employer] 350.1.13.10 it y of Surgical 4.2.7.2.686 Asael as Specialti [id number] Me dical es 198 [facility] 2020-11-05 2020-11-05 Telephone [facility] 1.2.840.114 [id number] Univers 00:00:00 00:00:00 Elin [employer] 350.1.13.10 it y of Surgical 4.2.7.2.686 Asael as Specialti [id number] Me dical es 198 [facility] 2020-11-03 2020-11-03 Emergency [facility] 1.2.320.557 [id number] Univers 11:55:00 15:49:00 Luis Carlos [place] 350.1.13.10 i ty of [place] 4.2.7.2.686 [facility] [id number] [address] 2020-10-28 2020-10-28 Outpatient Raju_P MMG MMG [id number] 021 [place] 11:38:00 11:38:00 0414 [facility] 2020-02-28 2020-02-28 Telephone [facility] 1.2.840.114 [id number] Univers 00:00:00 00:00:00 Elin [employer] 350.1.13.10 it y of Surgical 4.2.7.2.686 Asael as Specialti [phone] Me dical es 198 [facility] 2020-02-28 2020-02-28 Telephone [facility] 1.2.840.114 [id number] 00:00:00 00:00:00 Elin [facility] 350.1.13.10 Surgical 4.2.7.2.686 Specialti [id number] es 198 [place] 2020-02-27 2020-02-27 [facility] 1.2.840.114 [id number] [facility] 08:32:08 23:59:00 Encounter Elin [facility] 350.1.13.10 ity of Surgical 4.2.7.2.686 Asael as Specialti [id number] Me dical es 809 [facility] 2020-02-27 2020-02-27 [facility] 1.2.840.114 [id number] 08:32:08 23:59:00 Encounter Elin [facility] 350.1.13.10 Surgical 4.2.7.2.686 Specialti [id number] es 809 [place] 2020-02-27 2020-02-27 Outpatient R [facility] [id number] [facility] 09:00:00 09:00:00 ELIN ity of [facility] 2020-02-27 2020-02-27 Office [facility] 1.2.517.714 [id number] [facility] 08:10:32 08:49:41 Visit Elin [facility] 350.1.13.10 it y of Surgical 4.2.7.2.686 Asael as Specialti [id number] Me dical es 198 [facility] 2020-02-27 2020-02-27 Office [facility] 1.2.735.259 [id number] 08:10:32 08:49:41 Visit Elin [facility] 350.1.13.10 Surgical 4.2.7.2.686 Specialti [id number] es [address] [place] 2019-10-31 2019-10-31 [employer] Shaina, [facility] 1.2.8 40.114 [id number] [facility] 08:04:46 08:19:46 Visit Musa Turner [place] 350.1.13.10 ity of [place] 4.2.7.2.686 [place] Profess[place] [id number] Nc dical [facility] [address] [facility] 2019-10-31 2019-10-31 Outpatient R MUSA TURNER [facility] [id number] Univers 07:45:00 07:45:00 ity of [facility] 2019-10-31 2019-10-31 Outpatient R MUSA TURNER [facility] [id number] Univers 07:45:00 07:45:00 ity [facility] 2019-10-31 2019-10-31 Orders Doctor SUSHIL 1.2.840.114 [id number] Univers 00:00:00 00:00:00 Only Unassigned[place] 350.1.13.10 ity of [place] [facility] 4.2.7.2.686 Asael as [id number] [address] Results Test Description Test Time Test Comments Results Result Comments Source ECG 12 lead 2022-10-26 21:49:33 Test Item Value Reference Range Interpretation Comme nts Ventricular rate (test code = 253) 68 Atrial rate (test code = 255) 68 NC interval (test code = 266) 148 QRSD [...] of 25-OCT-2022 16:44,-No significant change was found- [facility] [id number] 21:49:33 Test Item Value Reference Range Interpretation Comments Ventricular rate (test 68 code = 253) Atrial rate (test code 68 = 255) NC interval (test code 148 = 266) QRSD [...] of 25-OCT-2022 16:44,-No significant change was found- [address]2023-04-12 21:49:33 Test Item Value Reference Range Interpretation Comments Ventricular rate (test 68 code = 253) Atrial rate (test code 68 = 255) NC interval (test code 148 = 266) QRSD [...] of 25-OCT-2022 16:44,-No significant change was found- [address]2023-04-12 21:49:33 Test Item Value Reference Range Interpretation Comments Ventricular rate (test 68 code = 253) Atrial rate (test code 68 = 255) NC interval (test code 148 = 266) QRSD [...] of 25-OCT-2022 16:44,-No significant change was found- [facility] Sinus Wo [id number] 23:54:49EXAMINATION: CT SINUS WO CONTRAST CLINICAL HISTORY: Sinusitis acute orbital or intracranial complicat ions suspected COMPARISON: None. TECHNIQUE: Axial images were obtained without contrast with sagittal and coronal image reconstructions and images were reformatted in soft tissue and bone algorithms.Up-to-date CT equip,ment and radiation dose reduction technique were employed. FINDINGS: Frontal sinus:There is no significant mucosal thickening or air-fluid levels. Ethmoid air cells: There is mild mucosal thickening without air-fluid levels. Maxillary sinus: There is no significant mucosal thickeningor air-fluid levels Sphenoid sinus: There is no significant mucosal thickening or air-fluid levels. Nasal cavity and nasopharynx: There is nasal septal deviation to the right with right nasal airway impingement. IMPRESSION: Mild mucosal thickening in the ethmoid air cells without air-fluid levels. No bone erosion or destruction. Nasal septal deviation to the right with right nasal airway impingement [id number] CT Chest Wo [id number] 19:20:02EXAMINATION:CT CHEST WO CONTRAST CLINICAL HISTORY: Cough and shortness of breath TECHNIQUE:Multiple axial images of the chest were obtained without contrast. Sagittal and coronal computerized reformatted images were also obtained. All CT images were acquired using radiation dose lowering technique with automated exposure control and / or iterative reconstruction.The chest acquisition includes a dedicated high- resolution dataset (less than 2 mm slice thickness with high frequency reconstruction kernel). COMPARISON:X-ray today and CT 01/22/2021 IMPRESSION:1.Borderline bronchiectasis centrally. 2.Calcified granulomata. 3.Chain sutures at the left lung apex. 4.A 2 mm nodule medially in the right lung apex on series 301 image 26 is stable, benign. Additional nodules elsewhere likewise stable and benign.5.A 9 mm nodule in the middle lobe on image 61 is stable even from 04/10/2017, benign. Smaller nodules elsewhere likewise stable and benign. 6.A tubular opacity in the posterior basal right lower lobe co mpatible with mucoid impaction, stable, with interval resolution of associated centrilobular nodularity on the prior exams. 7.Cluster of centrilobular nodules in the superior left lower lobe, new from prior, though there was mucous plugging in this area on prior exams, compatible with an infectious bro nchiolitis, maximum of 6 mm, image 59. Lungs otherwise clear 8.No axillary, mediastinal or definite hilar lymphadenopathy identified on this limited noncontrast exam. Heart is upper normal. No pericardial or pleural effusion 9.Small hiatal hernia. Calcified plaque within the thoracic aorta and mild cor onary calcifications. Bilateral mastectomy. 10.Cholecystectomy. Visualized bones show no suspicious lesion. SUMMARY:Small zone of bronchiolitis in the lower lobes, new on the left, and decreased on theright compared to prior. No consolidation. Numerous lung nodules, stable and benign. Details and other findings see above [id number] 1 Vw Portable 2022-10-25 17:58:48EXAMINATION: XR CHEST 1 VW PORTABLE INDICATION: SOB COMPARISON: May 13, 2021 IMPRESSION:There humza 8 mm nodule overlying the right lower lung, present since 2015 and likely representing a granuloma. A couple subtle tubular opacities are identified, for example right upper lung projecting over the posterior right fourth rib and left upper/midlung, which could represent bronchiolitis. No new airspace disease is appreciated. Slightly asymmetric haziness over the left lung, favored to be due to patient rotation and asymmetric overlying soft tissue. No pleural effusion or pneumothorax. Aortic calcifications; otherwise, normal cardiomediastinal silhouette. [id number] ED Preliminary Interpretation - Not an Order 2022-10-25 16:28:03Elan Wild MD 10/28/2022 11:06 [facility] ED Preliminary Interpretation - Not an OrderPerformed by: Seth Parrish, NPAuthorized by: Elan Wild MD ECG reviewed by ED Physician in the absence of a cafe or restaurant manager: yes Rate: ECG rate: 68 ECG rate assessment: normal Rhythm: Rhythm: sinus rhythm Ectopy: Ectopy: none QRS: QRS axis: Normal QRS intervals: NormalST segments: ST segments: NormalT waves: T waves: normal Influenza virus A and B [id number] 13:05:12 Test Item Value Reference Range Interpretation Comments SARS-CoV-2 (COVID-19) RNA Not detected [Presence] in Respiratory specimen by NIVIA with probe detection (test code = 17234-4) Whether patient resides in a No congregate care setting (test code = 20330-7) Date and time of symptom onset Unknown (test code = 11553-9) Whether the patient was No hospitalized for condition of interest (test code = 65309-8) Whether the patient was admitted No to intensive care unit (ICU) for condition of interest (test code = 82609-8) Whether patient is employed in a No healthcare setting (test code = 43772-4) Whether the patient has symptoms No related to condition of interest (test code = 16814-1) status (test code = No 18776-0) [facility]ERR[facility] [id number]-3 (COVID-19) RNA [Presence] in Respiratory specimen by NIVIA with probe [id number] 02:03:05 Test Item Value Reference Range Interpretation Comments SARS-CoV-2 (COVID-19) RNA Not detected Not-Detected [Presence] in Respiratory specimen by NIVIA with probe detection (test code = 47120-3) Whether patient is employed in a healthcare setting (test code = 73774-9) Whether the patient has symptoms related to condition of interest (test code = 47361-9) Patient was hospitalized because of this condition (test code = 11476-2) Whether the patient was admitted to intensive care unit (ICU) for condition of interest (test code = 48882-8) Whether patient resides in a congregate care setting (test code = 06734-3) [facility]-CoV-2 (COVID-19) RNA [Presence] in Respiratory specimen by NIVIA with probe [id number] 20:51:54 Test Item Value Reference Range Interpretation Comments SARS-CoV-2 (COVID-19) RNA Not detected Not-Detected [Presence] in Respiratory specimen by NIVIA with probe detection (test code = 48712-1) Whether patient is employed in a healthcare setting (test code = 70871-9) Whether the patient has symptoms related to condition of interest (test code = 88850-9) Patient was hospitalized because of this condition (test code = 70135-8) Whether the patient was admitted to intensive care unit (ICU) for condition of interest (test code = 19311-5) Whether patient resides in a congregate care setting (test code = 62065-7) [facility]-CoV-2 (COVID-19) RNA [Presence] in Respiratory specimen by NIVIA with probe [id number] 22:15:41 Test Item Value Reference Range Interpretation Comments SARS-CoV-2 (COVID-19) RNA Not detected Not-Detected [Presence] in Respiratory specimen by NIVIA with probe detection (test code = 40754-0) Whether patient is employed in a healthcare setting (test code = 13139-5) Whether the patient has symptoms related to condition of interest (test code = 42084-5) Patient was hospitalized because of this condition (test code = 41833-7) Whether the patient was admitted to intensive care unit (ICU) for condition of interest (test code = 28591-5) Whether patient resides in a congregate care setting (test code = 96933-5) [facility] [Presence] in Respiratory specimen by NIVIA with probe [id number] 19:37:15 Test Item Value Reference Range Interpretation Comments SARS-CoV-2 (COVID-19) RNA Not detected Not-Detected [Presence] in Respiratory specimen by NIVIA with probe detection (test code = 71478-9) Whether patient is employed in a healthcare setting (test code = 40993-9) Whether the patient has symptoms related to condition of interest (test code = 78578-7) Patient was hospitalized because of this condition (test code = 91805-2) Whether the patient was admitted to intensive care unit (ICU) for condition of interest (test code = 51216-3) Whether patient resides in a congregate care setting (test code = 05486-8) [facility] Notes Date/Time Note Provider Source 2023-03-24 16:34:00 0434-26-61F03:34:00Formatting of [facility] this note might be different from the original.Placed in providers basket for review. 30366-6Adshjachz encounter OaipNH2762-86-24E41:34:23Telepho ne encounter NoteTXT1.2.840.938399.1.13.104.2 .7.2.467506|[id number] e for patient asvn90961-1ClyeZS043821433Kxpfqn [address] ErdlOtnxuvbqnIlgzublqpHNWT318580 0631KGWSNQCZTEBWNOGAUCOTXP0099-4 9-08T16:34:231.2.840.557505.1.72 .3.15|1.2.840.770448.1.13.104.2. 7.2.727879_[id number] 2023-03-01 16:07:08 1081-10-28S50:07:08Formatting of Aniya kelsey [facility] this note is different from the original.Please review and sign if appropriate:Last office visit: 01/27/23Next office visit: not scheduledRequested Prescriptions Pending Prescriptions Disp Refills acetaminophen-codeine (TYLENOL-CODEINE #3) 300-30 mg tablet 40 tablet 0 Sig: Take 1 tablet by mouth every 4 (four) hours as needed for Pain (scale 4-6) or Pain (scale 7-10). Indications: acute pain [facility] - [place], [place] - [address] [place] [address]343Ajnwg: [phone] Last refill date: 02/02/23Las refilled by: DEMARCUS Short 85429-9Eorjiynts encounter FxzwMJ9987-39-11Z09:09:59Telepho ne encounter NoteTXT1.2.840.228859.1.13.104.2 .7.2.856919|[id number] deirdre for patient cffd20835-3RgeeKO920987144Okskv Flores [address] QdhhCsafixoreOxccbpjnkCTWC878559 9433OUOSCBMKDPYHMOFWRBSLMG4212-6 6:09:591.2.840.910355.1.72 .3.15|1.2.840.358487.1.13.104.2. 7.2.727879_[id number] 2023-02-27 12:22:21 9878-31-97W60:22:21Formatting of Latoya coppola [facility] this note might be different from the original.Patient's partner is calling to follow up on the prescription request. She is out of medication. 99712-5Jlfowvrez encounter AeaeGA5598-89-95N44:23:25Telepho ne encounter NoteTXT1.2.840.158698.1.13.104.2 .7.2.919541|[id number] e for patient vemf89630-7GyewUW30635368Yxtzx S Hernandez[address] StreetTXTX[address] 3091IATSAYIPMGGCSDBQRSZVLB4557-1 8-14T12:23:251.2.840.999711.1.72 .3.15|1.2.840.219540.1.13.104.2. 7.2.727879_[id number] 2023-02-22 10:11:33 1466-08-94G97:11:33Formatting of [facility] this note might be different from the original.Pt calling to get refill of acetaminophen-codeine (TYLENOL-CODEINE #3) 300-30 mg tablet 84888-6Ukmnwcvjm encounter SxreXI1214-41-35R32:13:10Telepho ne encounter NoteTXT1.2.840.700978.1.13.104.2 .7.2.083369|[id number] e for patient swdo83979-6BkejBZSAJFPORN[address] JxcgJtkdihxmiIumqfrmzlLGKS096240 7692MVTOAIWQVMBYCDWACMNFYB2127-7 8-09T10:13:101.2.840.487785.1.72 .3.15|1.2.840.782552.1.13.104.2. 7.2.727879_[id number] 2023-01-26 09:34:35 7937-87-84B00:34:35Formatting of [facility] this note might be different from the original.Pt called and states that pt is needing a refill. [facility] - [address] MPhone: [phone] encounter RrgzPJ9180-74-56Q11:35:39Telepho ne encounter NoteTXT1.2.840.269328.1.13.104.2 .7.2.444842|[id number] e for patient care[address] UugqBfttdwlmwRfcmxamrhNMOB409903 0191NXUAGZNPWKVGXNFDHCQHJE3029-3 09:35:391.2.840.004103.1.72 .3.15|1.2.840.124613.1.13.104.2. 7.2.727879_[id number]"
--- NOTE | 2023-06-19 15:27 | RAD REPORT ---
EXAM DESCRIPTION: RAD - Chest Pa And Lat (2 Views) - 06/19/2023 3:09 pm CLINICAL HISTORY: Cough;Dyspnea Chest pain. COMPARISON: Chest Pa And Lat (2 Views) dated 04/21/2023; Chest Single View dated 03/31/2021; Chest Pa And Lat (2 Views) dated 03/31/2020; Chest Pa And Lat (2 Views) dated 01/07/2020 FINDINGS: The lungs are clear. The heart is upper limit of normal in size. No displaced fractures. IMPRESSION: No acute or concerning finding suspected. The USPSTF recommends annual screening for lung cancer with low-dose CT (LDCT) in adults aged 50 to 8 0 years who have a 20 pack-year smoking history and currently smoke or have quit within the past 15 y ears.
--- NOTE | 2023-06-19 15:48 | ER ---
Nurse's Notes [facility] Name: Veronica Hannah Age: 73 yrs Sex: Female : 1950 Arrival Date: 06/19/2023 Time: 14:20 Bed IW1 Private MD: Diagnosis: SARS-associated coronavirus as the cause of diseases classified elsewhere Presentation: 06/19 14:47 Chief complaint: Patient states: tested positive for COVId at home, she has a cough and iw congestion, no taste or smell X 2 weeks. Coronavirus screen: Client presents with at least one sign or symptom that may indicate coronavirus-19. Ebola Screen: Patient negative for fever greater than or equal to 101.5 degrees Fahrenheit, and additional compatible Ebola Virus Disease symptoms Patient denies exposure to infectious person. Patient denies travel to an Ebola-affected area in the 21 days before illness onset. No symptoms or risks identified at this time. Initial Sepsis Screen: Does the patient meet any 2 criteria? No. Patient's initial sepsis screen is negative. Does the patient have a suspected source of infection? No. Patient's initial sepsis screen is negative. Risk Assessment: Do you want to hurt yourself or someone else? Patient reports no desire to harm self or others. Onset of symptoms. 14:47 Method Of Arrival: Wheelchair iw 14:47 Acuity: BALJIT 4 iw Historical: - PMHx: 14:48 Asthma; breast cancer; Cerebral Palsy; Cerebral Palsy; Hypertension; Hypothyroidism; iw - PSHx: 14:48 B mastectomy; L eye SX; iw - Family history:: not pertinent. - Hospitalizations: : No recent hospitalization is reported. Vital Signs: 14:47 BP 121 / 65; Pulse 79; Resp 18; Temp 98.3; Pulse Ox 99% on R/A; iw ED Course: 14:23 Patient arrived in ED. mg5 14:34 Porter Sahni MD is Attending Physician. rn 14:48 Triage completed. iw 15:09 XRAY Chest Pa And Lat (2 Views) In Process Unspecified. EDMS Administered Medications: No medications were administered Outcome: 15:47 Discharge ordered by . rn 15:55 Patient left the ED. hb Signatures: Dispatcher [employer] EDMS Flora Mcwilliams RN RN iw Nieto, Roman, MD MD rn Baxter, Heather NICOLA RN Анна Maxwell mg5
--- NOTE | 2023-06-19 15:48 | EDPHYS ---
Physician Documentation [facility] Name: Veronica Hannah Age: 73 yrs Sex: Female : 1950 Arrival Date: 06/19/2023 Time: 14:20 Bed IW1 Private MD: ED Physician Porter Sahni HPI: 06/19 15:23 This 73 yrs old Female presents to ER via Wheelchair with complaints of Covid Positive. rn 15:23 The patient or guardian reports cough. rn 15:23 Onset: The symptoms/episode began/occurred 2 week(s) ago. Severity of symptoms: At rn their worst the symptoms were very mild, in the emergency department the symptoms are unchanged. Modifying factors: The symptoms are alleviated by nothing, the symptoms are aggravated by nothing. Associated signs and symptoms: Pertinent negatives: chest pain, fever, vomiting. The patient has experienced a previous episode. The patient has not recently seen a physician. Patient and report positive COVID test. Has been sick for 2 weeks with loss of smell and mild cough. Denies shortness of breath. Reports has asthma. Had a positive COVID test at home and wanted to come in for confirmation. No other symptoms.. Historical: - PMHx: 14:48 Asthma; breast cancer; Cerebral Palsy; Cerebral Palsy; Hypertension; Hypothyroidism; iw - PSHx: 14:48 B mastectomy; L eye SX; iw - Family history:: not pertinent. - Hospitalizations: : No recent hospitalization is reported. ROS: 15:23 Constitutional: Negative for fever, chills, and weight loss, Eyes: Negative for injury, rn pain, redness, and discharge, ENT: Loss of smell Cardiovascular: Negative for chest pain, palpitations, and edema, Respiratory: Negative for shortness of breath, cough, wheezing, and pleuritic chest pain, Abdomen/GI: Negative for abdominal pain, nausea, vomiting, diarrhea, and constipation, MS/Extremity: Negative for injury and deformity, Skin: Negative for injury, rash, and discoloration, Neuro: Negative for headache, weakness, numbness, tingling, and seizure, Exam: 15:23 Constitutional: This is a well developed, well nourished patient who is awake, alert, rn and in no acute distress. Head/Face: Normocephalic, atraumatic. ENT: Moist mucous membranes, no stridor Cardiovascular: Regular rate and rhythm. No pulse deficits. Respiratory: Faint wheezing noted bilaterally. No increased work of breathing, no retractions or nasal flaring. Neuro: Awake and alert, GCS 15 Vital Signs: 14:47 BP 121 / 65; Pulse 79; Resp 18; Temp 98.3; Pulse Ox 99% on R/A; iw MDM: 14:34 Patient medically screened. rn 15:45 Differential Diagnosis: Bronchitis Upper Respiratory Infection Viral Syndrome rn Pneumonia. Data reviewed: vital signs, nurses notes, radiologic studies, plain films, and as a result, I will discharge patient. Independent interpretation of the following test(s) in the Emergency Department X-Ray: My interpretation is Chest x-ray images negative for pneumonia per my interpretation. Counseling: I had a detailed discussion with the patient and/or guardian regarding the historical points, exam findings, and any diagnostic results supporting the discharge/admit diagnosis, radiology results, the need for outpatient follow up, to return to the emergency department if symptoms worsen or persist or if there are any questions or concerns that arise at home. Special discussion: I discussed with the patient/guardian in detail that at this point there is no indication for admission to the hospital. It is understood, however, that if the symptoms persist or worsen the patient needs to return immediately for re-evaluation. Based on the history and exam findings, there is no indication for further emergent testing or inpatient evaluation. I discussed with the patient/guardian the need to see the primary care provider for further evaluation of the symptoms. ED course: Chest x-ray images are negative for pneumonia, no oxygen requirement. Patient reports very mild symptoms, primarily loss of sense of smell. I have personally reviewed all of the results, including but not limited to imaging deemed necessary to safely discharge this patient at this time. All results given to and printed out for patient. I personally went over all the results with the patient and answered all questions. Patient will follow-up with PCP and or specialist as discussed. Return precautions given and understood.. 06/19 14:34 Order name: XRAY Chest Pa And Lat (2 Views); Complete Time: 15:35 rn Administered Medications: No medications were administered Disposition Summary: 06/19/23 15:47 Discharge Ordered Notes: Location: Home rn Problem: new rn Symptoms: are unchanged rn Condition: Stable rn Diagnosis - SARS-associated coronavirus as the cause of diseases classified elsewhere rn Followup: rn - With: Private Physician - When: As needed - Reason: Recheck today's complaints, Re-evaluation by your physician Discharge Instructions: - Discharge Summary Sheet rn - Asthma, Adult rn - COVID-19 rn - 10 Things You Can Do to Manage Your COVID-19 Symptoms at Home - [facility] (01/29/2021) rn - Viral Illness, Adult rn Forms: - Medication Reconciliation Form rn - Thank You Letter rn - Antibiotic international operations manager - Prescription Opioid Use rn - Patient Portal Instructions rn - Leadership Thank You Letter rn Prescriptions: - Prednisone 20 mg Oral Tablet - take 3 tablets ORAL route once daily for 5 days; 15 tablet; Refills: 0, Product rn Selection Permitted Signatures: Dispatcher [employer] Flora Caraballo RN RN Porter Cheng MD MD rn
[2023-06-19 16:05] VITALS: BP 121/65; TEMP 98.3; O2SAT 99
== END 2023-06-19 15:55 | disposition home or self-care (01) ==
LOC: ER 14:20
DX: U07.1 COVID-19 (principal)
CPT/HCPCS: 71046; 99281

== ENCOUNTER 2024-04-23 14:20 | Emergency (ER) | payer OTHER ==
--- NOTE | 2024-04-23 14:54 | ER ---
Nurse's Notes [facility] Name: Veronica Hannah Age: 74 yrs Sex: Female : 1950 Arrival Date: 04/23/2024 Time: 14:20 Bed 7 Private MD: Diagnosis: Trapezius muscle pain Presentation: 04/23 14:36 Chief complaint: Right neck pain x 1 week, denies injury. Coronavirus screen: At this hb time, the client does not indicate any symptoms associated with coronavirus-19. Ebola Screen: No symptoms or risks identified at this time. Initial Sepsis Screen: Does the patient meet any 2 criteria? No. Patient's initial sepsis screen is negative. Does the patient have a suspected source of infection? No. Patient's initial sepsis screen is negative. Risk Assessment: Do you want to hurt yourself or someone else? Patient reports no desire to harm self or others. Onset of symptoms was April 16, 2024. 14:36 Method Of Arrival: Ambulatory hb 14:36 Acuity: BALJIT 4 hb Triage Assessment: 15:00 General: Appears in no apparent distress. Behavior is calm, cooperative. Pain: iw Complains of pain in neck. Historical: - Allergies: 14:37 No Known Drug Allergies; hb - PMHx: 14:37 Asthma; breast cancer; Cerebral Palsy; Hypertension; Hypothyroidism; hb - PSHx: 14:37 B mastectomy; L eye SX; hb - Immunization history:: Adult Immunizations up to date. - Infectious Disease History:: Denies. - Social history:: Smoking status: Patient denies any tobacco usage or history of. Screenin:04 [facility] ED Fall Risk Assessment (Adult) History of falling in the last 3 months, iw including since admission No falls in past 3 months (0 pts) Confusion or Disorientation No (0 pts) Impaired Gait No (0 pts) Mobility Assist Device Used. [facility] ED Fall Risk Assessment (Adult) Intoxicated or Sedated No (0 pts) Altered Elimination No (0 pt) Score/Fall Risk Level 0 - 2 = Low Risk. Abuse screen: Denies threats or abuse. Nutritional screening: No deficits noted. Tuberculosis screening: No symptoms or risk factors identified. Assessment: 15:06 Reassessment: Patient appears in no apparent distress at this time. Patient and/or iw family updated on plan of care and expected duration. Pain level reassessed. Patient is alert, oriented x 3, equal unlabored respirations, skin warm/dry/pink. Vital Signs: 14:36 BP 151 / 87; Pulse 71; Resp 16; Temp 98.6; Pulse Ox 96% on R/A; Weight 66.22 kg; Height hb 4 ft. 11 in. ; Pain 8/10; 15:11 BP 149 / 87; Pulse 64; Resp 16; Pulse Ox 98% on R/A; iw 14:36 Body Mass Index 29.49 (66.22 kg, 149.86 cm) hb 14:36 Pain Scale: Adult hb ED Course: 14:24 Patient arrived in ED. im 14:25 Maciel James MD is Attending Physician. sp3 14:37 Triage completed. hb 14:38 Arm band placed on. hb 15:02 Flora Mcwilliams, RN is Primary Nurse. iw 15:12 No provider procedures requiring assistance completed. Patient did not have IV access iw during this emergency room visit. Administered Medications: 15:06 Drug: HYDROcodone-acetaminophen PO 5 mg-325 mg 1 tabs PO once Route: PO; iw 15:10 Follow up: Response: No adverse reaction; Medication administered at discharge. iw Medication: 15:00 VIS not applicable for this client. iw Outcome: 14:54 Discharge ordered by . sp3 15:12 Discharged to home via wheelchair, with family, iw 15:12 Condition: good 15:12 Discharge instructions given to patient, family, Instructed on discharge instructions, follow up and referral plans. medication usage, Demonstrated understanding of instructions, follow-up care, medications, Prescriptions given X 1, 15:13 Patient left the ED. iw Signatures: Flora Mcwilliams, RN RN Maritza Masters RN RN Maciel James MD MD sp3 Flora Martinez im
--- NOTE | 2024-04-23 14:54 | EDPHYS ---
Physician Documentation [facility] Name: Veronica Hannah Age: 74 yrs Sex: Female : 1950 Arrival Date: 04/23/2024 Time: 14:20 Bed 7 Private MD: ED Physician Maciel James HPI: 04/23 14:44 This 74 yrs old Female presents to ER via Ambulatory with complaints of Neck Pain, sp3 >24Hrs Old. 14:44 74-year-old female with a history of asthma, breast cancer history, cerebral palsy, sp3 hypertension, hypothyroidism presents with right-sided posterior neck pain into the trapezius muscle for 7 days. Patient is been taking ibuprofen which has helped somewhat. No other symptoms reported. She denies headache, fever, any neurological symptoms, anterior neck pain, chest pain, shortness of breath, back pain, abdominal pain, vomiting, diarrhea, difficulty sleeping, change in gait, memory loss, or any other signs or symptoms on ROS at this time.. Historical: - Allergies: 14:37 No Known Drug Allergies; hb - PMHx: 14:37 Asthma; breast cancer; Cerebral Palsy; Hypertension; Hypothyroidism; hb - PSHx: 14:37 B mastectomy; L eye SX; hb - Immunization history:: Adult Immunizations up to date. - Infectious Disease History:: Denies. - Social history:: Smoking status: Patient denies any tobacco usage or history of. ROS: 14:48 Constitutional: Negative for fever, chills, and weight loss, Eyes: Negative for injury, sp3 pain, redness, and discharge, ENT: Negative for injury, pain, and discharge, Cardiovascular: Negative for chest pain, palpitations, and edema, Respiratory: Negative for shortness of breath, cough, wheezing, and pleuritic chest pain, Abdomen/GI: Negative for abdominal pain, nausea, vomiting, diarrhea, and constipation, Back: Negative for injury and pain, MS/Extremity: Negative for injury and deformity, Neuro: Negative for headache, weakness, numbness, tingling, and seizure, Psych: Negative for depression, anxiety, suicide ideation, homicidal ideation, and hallucinations, Allergy/Immunology: Negative for hives, rash, and allergies, Endocrine: Negative for neck swelling, polydipsia, polyuria, polyphagia, and marked weight changes, 14:48 All other systems are negative, Exam: 14:52 Constitutional: This is a well developed, well nourished patient who is awake, alert, sp3 and in no acute distress. Head/Face: Normocephalic, atraumatic. Eyes: Pupils equal round and reactive to light, extra-ocular motions intact. Lids and lashes normal. Conjunctiva and sclera are non-icteric and not injected. Cornea within normal limits. Periorbital areas with no swelling, redness, or edema. ENT: Nares patent. No nasal discharge, no septal abnormalities noted. External auditory canals are clear. Oropharynx with no redness, swelling, or masses, exudates, or evidence of obstruction, uvula midline. Mucous membranes moist. Chest/axilla: Normal chest wall appearance and motion. Nontender with no deformity. No lesions are appreciated. Cardiovascular: Regular rate and rhythm with a normal S1 and S2. No gallops, murmurs, or rubs. Normal PMI, no JVD. No pulse deficits. Respiratory: Lungs have equal breath sounds bilaterally, clear to auscultation and percussion. No rales, rhonchi or wheezes noted. No increased work of breathing, no retractions or nasal flaring. Abdomen/GI: Soft, non-tender, with normal bowel sounds. No distension or tympany. No guarding or rebound. No evidence of tenderness throughout. Back: No spinal tenderness. No costovertebral tenderness. Full range of motion. Skin: Warm, dry with normal turgor. Normal color with no rashes, no lesions, and no evidence of cellulitis. MS/ Extremity: Pulses equal, no cyanosis. Neurovascular intact. Full, normal range of motion. Neuro: Awake and alert, GCS 15, oriented to person, place, time, and situation. Cranial nerves II-XII grossly intact. Motor strength 5/5 in all extremities. Sensory grossly intact. Cerebellar exam normal. Normal gait. Psych: Awake, alert, with orientation to person, place and time. Behavior, mood, and affect are within normal limits. 14:52 Neck: Patient with pain to palpation on the right trapezius muscle. No anterior fullness or pain or pain over the vasculature or any other related symptoms. Vital signs are normal. We will safely discharge patient home on tramadol and follow-up to PCP., Vital Signs: 14:36 BP 151 / 87; Pulse 71; Resp 16; Temp 98.6; Pulse Ox 96% on R/A; Weight 66.22 kg; Height hb 4 ft. 11 in. ; Pain 8/10; 15:11 BP 149 / 87; Pulse 64; Resp 16; Pulse Ox 98% on R/A; iw 14:36 Body Mass Index 29.49 (66.22 kg, 149.86 cm) hb 14:36 Pain Scale: Adult hb MDM: 14:32 Patient medically screened. sp3 Administered Medications: 15:06 Drug: HYDROcodone-acetaminophen PO 5 mg-325 mg 1 tabs PO once Route: PO; iw 15:10 Follow up: Response: No adverse reaction; Medication administered at discharge. iw Disposition Summary: 04/23/24 14:54 Discharge Ordered Notes: Location: Home sp3 Condition: Stable sp3 Diagnosis - Trapezius muscle pain sp3 Followup: sp3 - With: Private Physician - When: Upon discharge from the Emergency Department - Reason: Continuance of care Discharge Instructions: - Discharge Summary Sheet sp3 - Acute Torticollis, Adult sp3 Forms: - Medication Reconciliation Form sp3 - Antibiotic Education sp3 - Prescription Opioid Use sp3 - Patient Portal Instructions sp3 - Leadership Thank You Letter sp3 Prescriptions: - Tramadol 50 mg Oral Tablet - take 1 tablet ORAL route every 8 hours as needed; 12 tablet; Refills: 0, sp3 Product Selection Permitted Signatures: Flora Mcwilliams RN RN Maritza Masters RN RN Maciel James MD MD sp3
[2024-04-23] MEDS ORDERED: HYDROCODONE/APAP 5/325 MG TAB ONE (15:03)
== END 2024-04-23 15:13 | disposition home or self-care (01) ==
LOC: ER 14:20
DX: M79.18 Myalgia, other site (principal)
CPT/HCPCS: 99283